=== PATIENT | female | born 1960 | race Caucasian/White ===

== ENCOUNTER 2016-08-05 17:10 | Emergency (ER) | payer MEDICARE, MEDICAID ==
[2016-08-05 17:15] VITALS: BP 175/99
[2016-08-05] MEDS ORDERED: Ibuprofen TAB* 600 MG PO ONE (17:32)
--- NOTE | 2016-08-05 17:36 | UC ---
Hand/Wrist HPI - HPI Summary HPI Summary: a drill fell on her left hand about 1 hour ago pain in left hand near 5th finger - History Of Current Complaint Chief Complaint: UCUpperExtremity Stated Complaint: HAND INJURY Time Seen by Provider: 08/05/16 17:30 Hx Obtained From: Patient ?: No Mechanism Of Injury: drill fell on hand Onset/Duration: Sudden Onset, Lasting Hours - 1.5 hours ago, Still Present Severity Initially: Moderate Severity Currently: Moderate Pain Intensity: 5 Pain Scale Used: 0-10 Numeric Character Of Pain: Aching Alleviating: Nothing Associated Signs And Symptoms: Positive: Negative Related History: Dominant Hand Right - Allergies/Home Medications Allergies/Adverse Reactions: Allergies Allergy/AdvReac Type Severity Reaction Status Date / Time Azithromycin Allergy Intermediate Rash And Verified 08/05/16 17:15 Itching Morphine Allergy Intermediate Difficulty Verified 08/05/16 17:15 Breathing Adhesive Tape Allergy Mild Rash Verified 08/05/16 17:15 Amoxicillin [From Augmentin] Allergy Unknown Rash Verified 08/05/16 17:15 Clavulanic Acid Allergy Unknown Rash Verified 08/05/16 17:15 [From Augmentin] Hydromorphone [From Dilaudid] Allergy Unknown Rash Verified 08/05/16 17:15 Moxifloxacin [From Avelox] Allergy Unknown Rash Verified 08/05/16 17:15 Tapentadol [From Nucynta] Allergy Unknown Rash Verified 08/05/16 17:15 Tolmetin [From Tolectin] Allergy Unknown Rash Verified 08/05/16 17:15 Valdecoxib [From Bextra] AdvReac Unknown Rash Verified 08/05/16 17:15 PERFUMES Allergy Severe DYSPNEA Uncoded 12/08/15 08:37 Home Medications: Home Medications Cholesterol Med* WEEKLY 08/05/16 [History] PMH/Surg Hx/FS Hx/Imm Hx Previously Healthy: No Endocrine History Of: Reports: Diabetes - undiagnosed; under discussion with primary provider Denies: Thyroid Disease Cardiovascular History Of: Reports: Hypertension Denies: Cardiac Disorders, Pacemaker/ICD, Congestive Heart Failure, Deep Vein Thrombosis Respiratory History Of: Reports: Asthma, Bronchitis - CHRONIC, Pneumonia Denies: COPD, Pulmonary Embolism GI/ History Of: Reports: Gastroesophageal Reflux Denies: Ulcer, Kidney Stones, Renal Disease Neurological History Of: Denies: Dementia Psychological History Of: Denies: Anxiety, Depression, Bipolar Disorder, Schizophrenia Cancer History Of: Denies: Lung Cancer Other History Of: Negative For: Anticoagulant Therapy - Surgical History Surgical History: Yes Surgery Procedure, Year, and Place: TUBAL LIGATION 07/12/89, L ear surgery 2013( EAR TUBES & REPAIRED HOLE, NO IMPLANT). TONSIL CHILD - Family History Known Family History: Positive: Cardiac Disease, Hypertension - Social History Occupation: Disabled Lives: With Family Alcohol Use: None Substance Use Type: None Smoking Status (MU): Never Smoked Tobacco Have You Smoked in the Last Year: No - Immunization History Most Recent Influenza Vaccination: 07/12 Most Recent Tetanus Shot: unknown Most Recent Pneumonia Vaccination: within 5 years Review of Systems Constitutional: Negative Skin: Negative Eyes: Negative ENT: Negative Respiratory: Negative Cardiovascular: Negative Gastrointestinal: Negative Genitourinary: Negative Motor: Negative Neurovascular: Negative Musculoskeletal: Arthralgia - left hand 5th MT Neurological: Negative Psychological: Negative All Other Systems Reviewed And Are Negative: Yes Physical Exam Triage Information Reviewed: Yes Appearance: No Pain Distress, Well-Nourished, Ill-Appearing - appears older than stated age Vital Signs: Initial Vital Signs Temp 98.2 F 08/05/16 17:11 Pulse 95 08/05/16 17:11 Resp 16 08/05/16 17:11 BP 175/99 08/05/16 17:11 Vital Signs Reviewed: Yes Eye Exam: Normal Eyes: Positive: Conjunctiva Clear ENT Exam: Normal ENT: Positive: Normal ENT inspection, Hearing grossly normal, TMs normal. Negative: Nasal congestion, Nasal drainage, Trismus, Muffled/hoarse voice Neck exam: Normal Neck: Positive: Supple, Nontender, No Lymphadenopathy Respiratory Exam: Normal Respiratory: Positive: Chest non-tender, Lungs clear, Normal breath sounds, No respiratory distress, No accessory muscle use Cardiovascular Exam: Normal Cardiovascular: Positive: RRR, No Murmur, Pulses Normal, Brisk Capillary Refill Musculoskeletal Exam: Normal Musculoskeletal: Positive: Strength Intact, ROM Intact, No Edema Neurological Exam: Normal Neurological: Positive: Alert, Muscle Tone Normal, Fatigued Psychological Exam: Normal Skin Exam: Normal Diagnostics - Radiology No standard instances Xray Interpretation: Positive (See Comments) Radiology Interpretation Completed By: ED Physician Hand/Wrist Course/Dx - Course Course Of Treatment: quiana, rest, ibuprofen quiana wrap, follow with pcp prn - Differential Dx/Diagnosis Differential Diagnosis/HQI/PQRI: Contusion, Fracture, Sprain, Strain Provider Diagnoses: Left hand Contusion Discharge - Discharge Plan Condition: Stable Disposition: HOME Patient Education Materials: Contusion in Adults (ED), RICE Therapy (ED), Ibuprofen (By mouth) Referrals: Francis PICKARD CHIEF STRATEGY OFFICERNithya [Primary Care Provider] - If Needed
--- NOTE | 2016-08-05 17:59 | RAD ---
HISTORY: Fifth metacarpal pain, left hand COMPARISONS: January 23, 2016 VIEWS: 4, Frontal, lateral, and oblique views of the left hand FINDINGS: BONE DENSITY: Normal. BONES: There is no displaced fracture. JOINTS: There is mild osteoarthritis of the interphalangeal joints. ALIGNMENT: There is no dislocation. SOFT TISSUES: Unremarkable. OTHER FINDINGS: None. IMPRESSION: NO ACUTE OSSEOUS INJURY. IF SYMPTOMS PERSIST, RECOMMEND REPEAT IMAGING.
== END 2016-08-05 18:00 | disposition home or self-care (01) ==
LOC: UCEAST 17:10
DX: S60.222A Contusion of left hand, initial encounter (principal); W20.8XXA Other cause of strike by thrown, projected or falling object, initial encounter; Y93.9 Activity, unspecified; Y92.9 Unspecified place or not applicable; Z88.1 Allergy status to other antibiotic agents; Z88.6 Allergy status to analgesic agent; Z88.0 Allergy status to penicillin
CPT/HCPCS: 99212; A9270-GY; G0463

== ENCOUNTER 2016-08-10 23:18 | Emergency (ER) | payer MEDICARE, MEDICAID ==
[2016-08-10] MEDS ORDERED: methylPREDNISolone 125 MG* 2 ML VIAL IV ONE (23:25)
[2016-08-10 23:40] LABS: Hematocrit 42 % (35-47); Hemoglobin 13.9 g/dl (12.0-16.0); Mean Corpuscular HGB Conc 33 g/dl (31-36); Mean Corpuscular Hemoglobin 29 pg (27-31); Mean Corpuscular Volume 86 fL (80-97); Mean Platelet Volume 10 um3 (7.4-10.4); Red Blood Count 4.83 10^6/ul (4.0-5.4); Red Cell Distribution Width 13 % (10.5-15); White Blood Count 6.4 10^3/ul (3.5-10.8)
[2016-08-11 00:05] LABS: Albumin 4.2 g/dL (3.2-5.2); Calcium 9.4 mg/dL (8.6-10.3); EGFR Non-African American 57.6 (>60); Globulin 2.6 g/dL (2-4); Potassium 3.4 mmol/L (3.5-5.0); Total Bilirubin 0.6 mg/dL (0.2-1.0); Total Protein 6.8 g/dL (6.4-8.9); Troponin I 0.01 ng/mL (<0.04)
--- NOTE | 2016-08-11 00:23 | ED ---
Kwame Davis Karl, scribed for Damaso Cline MD on 08/10/16 at 2323 . Shortness of Breath - HPI Summary HPI Summary: Pt is a 56 y/o female BIBA that presents to the ED c/o SOB. Per EMS, pt was using a home nebulizer treatment when they arrived and was audibly wheezing. Hx : asthma. - History of Current Complaint Chief Complaint: EDShortnessOfBreath Time Seen by Provider: 08/10/16 23:21 Hx Obtained From: Patient, EMS - Allergy/Home Medications Allergies/Adverse Reactions: Allergies Allergy/AdvReac Type Severity Reaction Status Date / Time Azithromycin Allergy Intermediate Rash And Verified 08/05/16 17:15 Itching Morphine Allergy Intermediate Difficulty Verified 08/05/16 17:15 Breathing Adhesive Tape Allergy Mild Rash Verified 08/05/16 17:15 Amoxicillin [From Augmentin] Allergy Unknown Rash Verified 08/05/16 17:15 Clavulanic Acid Allergy Unknown Rash Verified 08/05/16 17:15 [From Augmentin] Hydromorphone [From Dilaudid] Allergy Unknown Rash Verified 08/05/16 17:15 Moxifloxacin [From Avelox] Allergy Unknown Rash Verified 08/05/16 17:15 Tapentadol [From Nucynta] Allergy Unknown Rash Verified 08/05/16 17:15 Tolmetin [From Tolectin] Allergy Unknown Rash Verified 08/05/16 17:15 Valdecoxib [From Bextra] AdvReac Unknown Rash Verified 08/05/16 17:15 PERFUMES Allergy Severe DYSPNEA Uncoded 12/08/15 08:37 Home Medications: Home Medications Albuterol HFA INHALER* [Ventolin HFA Inhaler*] 2 puff INH Q4HR 08/11/16 [ History Confirmed 08/11/16] Buprenorphine 10 MCG PATCH(NF) [Butrans 10 MCG PATCH(NF)] 10 mcg TOPICAL WEEKLY 08/11/16 [History Confirmed 08/11/16] Epinephrine [Epipen 2-Gulshan] 1 inj SUBCUT PRN 08/11/16 [History] Fenofibrate [Triglide] 160 mg PO DAILY 08/11/16 [History Confirmed 08/11/16] Flunisolide NASAL (NF) [Nasalide NASAL (NF)] 2 spray BOTH NARES DAILY 08/11/16 [ History Confirmed 08/11/16] Gabapentin CAP(*) [Neurontin 100 mg CAP(*)] 100 mg PO TID 08/11/16 [History Confirmed 08/11/16] PMH/Surg Hx/FS Hx/Imm Hx Endocrine/Hematology History: Reports: Hx Diabetes - undiagnosed; under discussion with primary provider Denies: Hx Anticoagulant Therapy, Hx Blood Disorders, Hx Blood Transfusions, Hx Bone Marrow Disease, Hx Systemic Lupus Erythematosus, Hx Sickle Cell Disease , Hx Thyroid Disease, Hx Anemia, Hx Unexplained Bleeding Cardiovascular History: Reports: Hx Hypercholesterolemia, Hx Hypotension, Hx Hypertension, Other Cardiovascular Problems/Disorders - pericardial effusion/ IDDM Denies: Hx Aneurysm, Hx Angina, Hx Angioplasty, Hx Auto Implanted Cardiovert Defib, Hx Cardiac Arrest, Hx Cardiomegaly, Hx Congenital Heart Disease, Hx Congestive Heart Failure, Hx Coronary Artery Disease, Hx Deep Vein Thrombosis, Hx Pacemaker/ICD, Hx Peripheral Vascular Disease, Hx Rheumatic Fever, Hx Syncope , Hx Valvular Heart Disease Respiratory History: Reports: Hx Asthma, Hx Chronic Bronchitis, Hx Pneumonia, Hx Seasonal Allergies, Other Respiratory Problems/Disorders - PNA Denies: Hx Chronic Obstructive Pulmonary Disease (COPD), Hx Cystic Fibrosis, Hx Lung Cancer, Hx Pleural Effusion, Hx Pulmonary Edema, Hx Pulmonary Embolism, Hx Sleep Apnea GI History: Reports: Hx Diverticulosis, Hx Gastroesophageal Reflux Disease Denies: Hx Ulcer History: Denies: Hx Acute Renal Failure, Hx Benign Prostatic Hyperplasia, Hx Chronic Renal Failure, Hx Dialysis, Hx Kidney Infection, Hx Kidney Stones, Hx Renal Disease, Other Problems/Disorders Musculoskeletal History: Reports: Hx Arthritis - generalized, Hx Back Problems, Hx Bursitis - r shoulder, Hx Osteoporosis, Hx Scoliosis, Hx Tendonitis Denies: Hx Rheumatoid Arthritis, Hx Congenital Bone Abnormalities, Hx Fibromyalgia, Hx Gout, Hx Orthopedic Injury Sensory History: Reports: Hx Contacts or Glasses, Hx Hearing Problem Denies: Hx Cataracts, Hx Eye Injury, Hx Eye Prosthesis, Hx Glaucoma, Hx Macular Degeneration, Hx Vision Problem, Hx Deafness, Hx Hearing Aid, Other Sensory Impairments Opthamlomology History: Reports: Hx Contacts or Glasses Denies: Hx Cataracts, Hx Eye Injury, Hx Eye Prosthesis, Hx Glaucoma, Hx Macular Degeneration, Hx Vision Problem, Other Sensory Impairments Neurological History: Reports: Hx Headaches - reportedly d/t degenerative disc disease Denies: Hx Dementia Psychiatric History: Denies: Hx Anxiety, Hx Attention Deficit Hyperactivity Disorder, Hx Eating Disorder, Hx Depression, Hx Panic Disorder, Hx Post Traumatic Stress Disorder, Hx Inpatient Treatment, Hx Community Mental Health Tx, Hx Schizophrenia, Hx Bipolar Disorder, Hx Suicide Attempt, Hx Substance Abuse, Other Psychiatric Issues/Disorders - Surgical History Surgery Procedure, Year, and Place: TUBAL LIGATION 07/12/89, L ear surgery 2013( EAR TUBES & REPAIRED HOLE, NO IMPLANT). TONSIL CHILD Hx Anesthesia Reactions: No - Immunization History Date of Tetanus Vaccine: Unk Date of Influenza Vaccine: None Infectious Disease History: Reports: Hx of Known/Suspected MRSA, Hx Shingles - [id number], History Other Infectious Disease - influenza A Denies: Hx Clostridium Difficile, Hx Hepatitis, Hx Human Immunodeficiency Virus (HIV), Hx Tuberculosis - Family History Known Family History: Positive: Cardiac Disease, Hypertension - Social History Alcohol Use: None Substance Use Type: Reports: None Hx Tobacco Use: No Smoking Status (MU): Never Smoked Tobacco Have You Smoked in the Last Year: No Review of Systems Constitutional: Negative Eyes: Negative ENT: Negative Cardiovascular: Negative Positive: Shortness Of Breath Gastrointestinal: Negative Genitourinary: Negative Musculoskeletal: Negative Skin: Negative Neurological: Negative Psychological: Normal All Other Systems Reviewed And Are Negative: Yes Physical Exam Triage Information Reviewed: Yes Vital Signs On Initial Exam: Initial Vitals Temp Pulse Resp BP Pulse Ox 98.0 F 127 25 163/115 100 08/10/16 23:38 08/10/16 23:38 08/10/16 23:38 08/10/16 23:38 08/10/16 23:38 Vital Signs Reviewed: Yes Appearance: Positive: Well-Appearing, No Pain Distress Skin: Positive: Warm Head/Face: Positive: Normal Head/Face Inspection Eyes: Positive: ALLIE ENT: Positive: Hearing grossly normal Neck: Positive: Supple Respiratory/Lung Sounds: Positive: Decreased Breath Sounds, Wheezes - diffuse bilat with prolonged expiration Cardiovascular: Positive: Normal Abdomen Description: Positive: Nontender, Soft Bowel Sounds: Positive: Present Musculoskeletal: Positive: Strength/ROM Intact Neurological: Positive: Sensory/Motor Intact, Alert, Oriented to Person Place, Time Psychiatric: Positive: Affect/Mood Appropriate Diagnostics - Vital Signs Vital Signs Temp Pulse Resp BP Pulse Ox 08/11/16 00:02 112 22 143/80 95 08/10/16 23:38 98.0 F 127 25 163/115 100 - Laboratory Lab Results: Lab Results 08/10/16 08/10/16 08/10/16 Range/Units 23:30 23:30 23:30 WBC 6.4 (3.5-10.8) 10^3/ul RBC 4.83 (4.0-5.4) 10^6/ul Hgb 13.9 (12.0-16.0) g/dl Hct 42 (35-47) % MCV 86 (80-97) fL MCH 29 (27-31) pg MCHC 33 (31-36) g/dl RDW 13 (10.5-15) % Plt Count 169 (150-450) 10^3/ul MPV 10 (7.4-10.4) um3 Neut % (Auto) 60.0 (38-83) % Lymph % (Auto) 27.7 (25-47) % Calhoun % (Auto) 9.4 H (1-9) % Eos % (Auto) 2.2 (0-6) % Baso % (Auto) 0.7 (0-2) % Absolute Neuts (auto) 3.8 (1.5-7.7) 10^3/ul Absolute Lymphs (auto) 1.8 (1.0-4.8) 10^3/ul Absolute Monos (auto) 0.6 (0-0.8) 10^3/ul Absolute Eos (auto) 0.1 (0-0.6) 10^3/ul Absolute Basos (auto) 0 (0-0.2) 10^3/ul Absolute Nucleated RBC 0.01 10^3/ul Nucleated RBC % 0.1 Sodium 141 (133-145) mmol/L Potassium 3.4 L (3.5-5.0) mmol/L Chloride 107 (101-111) mmol/L Carbon Dioxide 26 (22-32) mmol/L Anion Gap 8 (2-11) mmol/L BUN 10 (6-24) mg/dL Creatinine 1.00 H (0.51-0.95) mg/dL Est GFR ( Amer) 74.0 (>60) Est GFR (Non-Af Amer) 57.6 (>60) BUN/Creatinine Ratio 10.0 (8-20) Glucose 126 H (70-100) mg/dL Lactic Acid 2.6 H* (0.5-2.0) mmol/L Calcium 9.4 (8.6-10.3) mg/dL Total Bilirubin 0.60 (0.2-1.0) mg/dL AST 21 (13-39) U/L ALT 19 (7-52) U/L Alkaline Phosphatase 60 (34-104) U/L Troponin I 0.01 (<0.04) ng/mL Total Protein 6.8 (6.4-8.9) g/dL Albumin 4.2 (3.2-5.2) g/dL Globulin 2.6 (2-4) g/dL Albumin/Globulin Ratio 1.6 (1-3) Influenza A (Rapid) (Negative) Influenza B (Rapid) (Negative) 08/10/16 Range/Units 23:55 WBC (3.5-10.8) 10^3/ul RBC (4.0-5.4) 10^6/ul Hgb (12.0-16.0) g/dl Hct (35-47) % MCV (80-97) fL MCH (27-31) pg MCHC (31-36) g/dl RDW (10.5-15) % Plt Count (150-450) 10^3/ul MPV (7.4-10.4) um3 Neut % (Auto) (38-83) % Lymph % (Auto) (25-47) % Calhoun % (Auto) (1-9) % Eos % (Auto) (0-6) % Baso % (Auto) (0-2) % Absolute Neuts (auto) (1.5-7.7) 10^3/ul Absolute Lymphs (auto) (1.0-4.8) 10^3/ul Absolute Monos (auto) (0-0.8) 10^3/ul Absolute Eos (auto) (0-0.6) 10^3/ul Absolute Basos (auto) (0-0.2) 10^3/ul Absolute Nucleated RBC 10^3/ul Nucleated RBC % Sodium (133-145) mmol/L Potassium (3.5-5.0) mmol/L Chloride (101-111) mmol/L Carbon Dioxide (22-32) mmol/L Anion Gap (2-11) mmol/L BUN (6-24) mg/dL Creatinine (0.51-0.95) mg/dL Est GFR ( Amer) (>60) Est GFR (Non-Af Amer) (>60) BUN/Creatinine Ratio (8-20) Glucose (70-100) mg/dL Lactic Acid (0.5-2.0) mmol/L Calcium (8.6-10.3) mg/dL Total Bilirubin (0.2-1.0) mg/dL AST (13-39) U/L ALT (7-52) U/L Alkaline Phosphatase (34-104) U/L Troponin I (<0.04) ng/mL Total Protein (6.4-8.9) g/dL Albumin (3.2-5.2) g/dL Globulin (2-4) g/dL Albumin/Globulin Ratio (1-3) Influenza A (Rapid) Negative (Negative) Influenza B (Rapid) Negative (Negative) Result Diagrams: 08/10/16 23:30 08/10/16 23:30 Lab Statement: Any lab studies that have been ordered have been reviewed, and results considered in the medical decision making process. - Radiology CXR Xray Interpretation: No Acute Changes Radiology Interpretation Completed By: ED Physician - IMPRESSION: No active cardiopulmonary pathology. Re-Evaluation - Re-Evaluation First Eval Change: Improved Course/Dx - Diagnoses Provider Diagnoses: Asthma exacerbation Discharge - Discharge Plan Condition: Stable Disposition: HOME Prescriptions: predniSONE TAB* [Deltasone TAB*] 40 mg PO DAILY #8 tab Patient Education Materials: Asthma (ED) Referrals: Francis TARANGOPNithya [Primary Care Provider] - Additional Instructions: Please follow up with your primary care provider. Return to the emergency department for changing or worsening symptoms. The documentation as recorded by the Kwame pettit Karl accurately reflects the service I personally performed and the decisions made by , Damaso Cline MD.
[2016-08-11 01:22] VITALS: BP 132/74
--- NOTE | 2016-08-11 06:51 | RAD ---
INDICATION: Short of breath COMPARISON: April 09, 2016 TECHNIQUE: PA and lateral dual-energy views were obtained. FINDINGS: Bones/Soft Tissues: There are no acute bony findings. Cardiomediastinal: The cardiomediastinal silhouette is normal. Lungs: There is bibasilar atelectasis the mid and upper lung cronin are clear. Pleura: There are no pleural effusions. Other: None IMPRESSION: EXPIRATORY EXAMINATION BASILAR WITH ATELECTASIS.
== END 2016-08-11 01:20 | disposition home or self-care (01) ==
LOC: ED 23:18
DX: J45.901 Unspecified asthma with (acute) exacerbation (principal); R06.02 Shortness of breath
CPT/HCPCS: 36415; 71020; 80053; 83605; 84484; 85025; 87502; 96374; 99283; J2930

== ENCOUNTER 2017-04-02 13:41 | Emergency (ER) | payer MEDICARE, MEDICAID ==
[2017-04-02 13:56] VITALS: BP 161/88
--- NOTE | 2017-04-02 14:25 | UC ---
Upper Extremity HPI - HPI Summary HPI Summary: 56 y/o female with pain L wrist since 03/29. The patient denies injury or trauma. She states she has nto had pain there in the past. She notes swelling / lesion there which is tender to the touch. full movement of finger and full strength, however thumb pain with certain movements. - History of Current Complaint Chief Complaint: UCUpperExtremity Stated Complaint: ARM INJURY Time Seen by Provider: 04/02/17 13:57 Hx Obtained From: Patient ?: No Onset/Duration: Sudden Onset, Lasting Days Severity Initially: Moderate Severity Currently: Moderate Location Of Pain: Is Discrete @ - L wrist Character: Sharp Aggravating Factor(s): Movement Alleviating Factor(s): Rest Associated Signs And Symptoms: Positive: Swelling - Allergies/Home Medications Allergies/Adverse Reactions: Allergies Allergy/AdvReac Type Severity Reaction Status Date / Time Azithromycin Allergy Intermediate Rash And Verified 04/02/17 13:58 Itching Morphine Allergy Intermediate Difficulty Verified 04/02/17 13:58 Breathing Adhesive Tape Allergy Mild Rash Verified 04/02/17 13:58 Amoxicillin [From Augmentin] Allergy Unknown Rash Verified 04/02/17 13:58 Clavulanic Acid Allergy Unknown Rash Verified 04/02/17 13:58 [From Augmentin] Hydromorphone [From Dilaudid] Allergy Unknown Rash Verified 04/02/17 13:58 Moxifloxacin [From Avelox] Allergy Unknown Rash Verified 04/02/17 13:58 Tapentadol [From Nucynta] Allergy Unknown Rash Verified 04/02/17 13:58 Tolmetin [From Tolectin] Allergy Unknown Rash Verified 04/02/17 13:58 Valdecoxib [From Bextra] AdvReac Unknown Rash Verified 04/02/17 13:58 PERFUMES Allergy Severe DYSPNEA Uncoded 04/02/17 13:58 PMH/Surg Hx/FS Hx/Imm Hx Previously Healthy: Yes Other History Of: Negative For: Anticoagulant Therapy - Surgical History Surgical History: Yes Surgery Procedure, Year, and Place: TUBAL LIGATION in 1988. hole in ear closed (no implant). tonsils as a child - Family History Known Family History: Positive: Cardiac Disease, Hypertension, Diabetes - Social History Alcohol Use: None Substance Use Type: Prescribed Smoking Status (MU): Never Smoked Tobacco Have You Smoked in the Last Year: No - Immunization History Most Recent Influenza Vaccination: 2016 Most Recent Tetanus Shot: unknown Most Recent Pneumonia Vaccination: within 5 years Review of Systems Motor: Decreased ROM - due to pain Musculoskeletal: Arthralgia, Edema Is Patient Immunocompromised?: No All Other Systems Reviewed And Are Negative: Yes Physical Exam Triage Information Reviewed: Yes Appearance: Well-Appearing, No Pain Distress, Well-Nourished Vital Signs: Initial Vital Signs Temp 98.9 F 04/02/17 13:49 Pulse 83 04/02/17 13:49 Resp 16 04/02/17 13:49 BP 161/88 04/02/17 13:49 Pulse Ox 98 04/02/17 13:49 Vital Signs Reviewed: Yes Musculoskeletal: Positive: Strength Intact, ROM Intact, No Edema, Other: - small , mobile lesion on anterior radial wrist, tender to touch, produces radiating pain into thumb, 1st finger with touch, mobile, full ROM or wrist/ thumb, fingers. Neurological: Positive: Alert, Muscle Tone Normal Skin Exam: Normal Upper Extremity Course/Dx - Course Course Of Treatment: likely ganglion cysts, wrist splint given with ortho follow up if no improvmeent - Differential Dx/Diagnosis Provider Diagnoses: ganglion cyst, L wrist Discharge - Discharge Plan Condition: Stable Disposition: HOME Patient Education Materials: Ganglion Cysts (ED) Referrals: Nithya Ruggiero RN [Primary Care Provider] - Андрей Hadley MD [Medical Doctor] - Additional Instructions: - If no improvement within 3-4 days or worsening of symptoms call Ortho- May be seen by Leonie Baum Donohue, [place] - - Wear splint to keep wrist stable, reduce symptoms - Motrin as needed for pain - return to urgent care with increased pain, redness, swelling, fever, chills.
== END 2017-04-02 14:22 | disposition home or self-care (01) ==
LOC: UCEAST 13:41
DX: M67.432 Ganglion, left wrist (principal); Z88.1 Allergy status to other antibiotic agents; Z88.5 Allergy status to narcotic agent; Z91.048 Other nonmedicinal substance allergy status
CPT/HCPCS: 99212; G0463

== ENCOUNTER 2017-05-23 08:25 | Day surgery (SDC) | payer MEDICARE, MEDICAID ==
[~2017-05-23 08:25] MED LIST: Buffered Lidocaine 0.9% SYRIN* 5 ML/SYR SYRINGE INTRADERM ONE; Bupivacaine 0.25% SDV* 30 ML ONE; Famotidine IV* 10 MG/ML 2 ML (20 mg) IV ONE; Famotidine IV* 10 MG/ML 2 ML (20 mg) ONE; Metoclopramide TAB* 10 MG ONE
[2017-05-23] MEDS ORDERED: ceFAZolin 2 GM PREMIX (*) 2 GM/50 ML BAG IVPB ONE (08:32)
[2017-05-23] MEDS ORDERED: Ketorolac INJ* 30 MG/ML 1 ML VIAL ONE (08:55)
[2017-05-23] MEDS ORDERED: Ondansetron INJ* 2 MG/ML VIAL ONE (08:55)
[2017-05-23] MEDS ORDERED: Propofol* 10 MG/ML 20 ML BTL IV PUSH ONE (08:55)
[2017-05-23] MEDS ORDERED: Midazolam* 1 MG/ML 5 ML VIAL (5 MG) ONE (08:55)
[2017-05-23] MEDS ORDERED: fentaNYL* 50 MCG/ML 2 ML VIAL (100 MCG VIAL) ONE ×2 (08:55→10:32)
[2017-05-23] MEDS ORDERED: KETAMINE HCL* 50 MG/ML 10 ML VIAL ONE (08:55)
[2017-05-23] MEDS ORDERED: Lidocaine 2% PF * 5 ML VIAL ONE (08:55)
[2017-05-23] MEDS: Metoclopramide TAB* 10 MG PO ONE ×2 (08:55→09:03)
[2017-05-23] MEDS ORDERED: Dexamethasone IV* 4 MG/ML 1 ML (4 MG) ONE (08:55)
[2017-05-23] MEDS ORDERED: oxyCODONE/Acetamin 5/325 MG* TAB PO PRN (09:49)
[2017-05-23] MEDS ORDERED: Ondansetron INJ* 2 MG/ML VIAL IV PRN (09:49)
[2017-05-23] MEDS ORDERED: fentaNYL* 50 MCG/ML 2 ML VIAL (100 MCG VIAL) IV PRN (09:49)
[2017-05-23 12:15] VITALS: BP 112/72
--- NOTE | 2017-05-24 02:09 | OP ---
OPERATIVE REPORT: DATE OF OPERATION: 05/23/17 - ROSITA DATE OF : 62 SURGEON: Андрей Hadley MD BLENDER / COOK: SHANICE Alfaro An assistant professor of spanish was needed for the entirety of the procedure to aid in positioning of the arm and retraction. ANESTHESIOLOGIST: Dr. Patiño. ANESTHESIA: General PRE-OP DIAGNOSIS: Right ulnar nerve peripheral compression. POST-OP DIAGNOSIS: Right ulnar nerve peripheral compression. OPERATIVE PROCEDURES: 1. Right ulnar nerve decompression at the wrist. 2. Right in situ cubital tunnel release. INDICATIONS: Tess has had progressive symptoms in the ring and small fingers , has failed to go away with nonoperative treatments and time. She has seen her precision filer hand and gotten clearance. We talked about risks and benefits. She wanted to proceed. EBL: 5 mL. COMPLICATIONS: None. FINDINGS: There was a significant 1 to 1.5 cm of area of compression just at the distal edge of Gaviria's ligament and the leading edge of the FCU fascia. DESCRIPTION OF PROCEDURE: Tess was seen in the preoperative holding area. The correct side, site, and procedure were identified. We came back to the operating room, the arm was prepped and draped in the usual fashion. A time- out was performed. We exsanguinated the arm with the Esmarch and the tourniquet was inflated to 250 mmHg. I began by making a longitudinal incision in the proximal aspect of the palm. This was brought back across the wrist in Tyrone type fashion, staying ulnar to the palmaris longus tendon. Dissection was carried down and full thickness flaps were raised slightly off of the fascia. I then opened up the fascia proximally to expose the ulnar artery. I then released the fascia overlying Guyon's canal. The ulnar artery was visualized. The ulnar nerve was encountered deep to that. There was a couple of perforating branches that were cauterized with the bipolar. I then had an excellent view of the ulnar nerve. The sensory branches were decompressed out distally. I then identified the motor branch and released the hypothenar fascia off the hook of the hamate to decompress the motor branch deeply. The wound was then irrigated out. I did go ahead and released the transverse carpal ligament just off the radial aspect of the hook of the hamate to aid in ensuring an adequate and complete decompression. The wound was then irrigated out. The skin was closed with 4-0 nylon suture. I then turned my attention to the elbow. A curvilinear incision was made centered over Gaviria's ligament, extending proximally and distally in line with the ulnar nerve. Dissection was carried down to the fascia with the Bovie proximally and with the tenotomy scissors distally. I began the release just at the proximal aspect of the Gaviria's ligament. This was carried up well past 8 cm proximal to the medial epicondyle. I then came back distally and released the Gaviria's ligament and then the superficial FCU fascia. I then split the 2 heads of the FCU and released the subfacial layer. The nerve was quite flat and compressed over a 1.5 cm segment just to the distal aspect of Gaviria's ligament and the leading edge of the FCU fascia. I went ahead and performed just a slight neurolysis as the nerve was quite adherent to the underlying tissue. At this point, I flexed and extended the elbow multiple times, it did not subluxate, so I went ahead and irrigated out the wound. Hemostasis was obtained with the Bovie cautery. Subcutaneous tissue was reapproximated with 3-0 Vicryl. Skin was closed with 4-0 nylon suture. All the wounds were irrigated with 0.25% plain Marcaine. The wounds were dressed with Xeroform, 4x4, sterile Webril, an ABD at the elbow, and Issac bandages. She was then woken up and taken to the recovery room in stable condition. [id number]/[facility] #: [id number] MARISSA
== END 2017-05-23 12:15 | disposition home or self-care (01) ==
LOC: OREAST 08:25
PROVIDERS: ATTEND Orthopaedic Surgery Hand Surgery
DX: G56.21 Lesion of ulnar nerve, right upper limb (principal); I10 Essential (primary) hypertension; J45.909 Unspecified asthma, uncomplicated; J44.9 Chronic obstructive pulmonary disease, unspecified; K21.9 Gastro-esophageal reflux disease without esophagitis; E11.9 Type 2 diabetes mellitus without complications; E78.5 Hyperlipidemia, unspecified; Z88.1 Allergy status to other antibiotic agents; Z88.5 Allergy status to narcotic agent
CPT/HCPCS: A9270-GY; J0690; J1100; J1885; J2250; J2405; J2704; J3010

== ENCOUNTER 2017-07-29 13:08 | Emergency (ER) | payer MEDICARE, MEDICAID ==
--- OUTSIDE RECORDS SUMMARY | 2017-07-29 13:25 | XMS REPORT ---
:1960 External Reference #:[id number] Author Organization [facility] Address [address] [address] Phone [phone] Care Team Providers Name Role Phone Nithya Blanco FNP Primary Care Physician Unavailable Payers Type Date Identification Numbers Payment Provider Subscriber Medicare Primary Effective: Policy Number: Medicare Tess Clark 2011 [id number] PayID: [id number] [address] [place] [address] [facility] Part [facility] Policy Number: [id number] Medicaid Tess Clark PayID: [id number] [address] [place] [address] Problems Date Description Provider Status Onset: 01/15/2017 Asthma without status asthmaticus Temi Najera MD Active Onset: 01/15/2017 Allergic rhinitis Temi Najera MD Active Onset: 01/15/2017 Gastroesophageal reflux disease Temi Najera MD Active Onset: 01/15/2017 Other sleep disorders Temi Najera MD Active Family History Date Family Member(s) Problem(s) Comments General Cancer General Diabetes General Hypertension Father Unknown Mother Seizure Disorder Mother Cerebrovascular Accident (CVA) Mother Diabetes Social History Type Date Description Comments Marital Status Lives With granddaughter Occupation Disabled Cigarette Use Never Smoked Cigarettes ETOH Use Denies alcohol use Smoking Patient has never smoked Recreational Drug Use Denies Drug Use Daily Caffeine Consumes on average 4 cups of regular coffee per day Exercise Type/Frequency Does not exercise Allergies, Adverse Reactions, Alerts Date Description Reaction Status Severity Comments 05/06/2014 Augmentin active 05/06/2014 Avelox active 05/06/2014 Dilaudid active 05/06/2014 Morphine active 05/06/2014 Nucynta active Medications Medication Date Status Form Strength Qnty SIG Indications Ordering Provider Tramadol 05/23/ Active Tablets 37.5-325mg 30tab 1-2 tab by Андрей Patino/ 2016 s mouth MD Leonie Acetaminophen every 4-6 hours as needed Tramadol HCL 05/23/ Active Tablets 50mg 30tab 1-2 tabs Marcia 2016 s by mouth Baum, every 4-6 M.D. hours as needed for pain Albuterol / Active Nebulizer (2.5mg/3ML 100un 1 vial via Unknown Sulfate 0000 ) 0.083% its nebulizer 4 times daily as needed Calcium 500+D / Active daily Unknown 0000 Epipen 2-Gulshan / Active Solution 0.3mg/0.3M 1unit use as Unknown 0000 Auto-Inject L s directed Ipratropium / Active Solution 0.5-2.5(3) 60uni 1 vial in Unknown [place] 0000 mg/3ML ts nebulizer rol Sulfate three times a day as needed for asthma Lisinopril / Active Tablets 5mg 30tab 1 by mouth Unknown 0000 s every day Lovastatin / Active Tablets 20mg 90tab by mouth Unknown 0000 s every night at bedtime Montelukast / Active Tablets 10mg 1 by mouth Unknown Sodium 0000 every day Ventolin HFA / Active Aerosol 108(90Base 1unit 2 puffs by Unknown 0000 ) mcg/Act s mouth four times a day as needed Advair Diskus / Active Aerosol 500-50mcg/ inhale 1 Unknown 0000 Dose dose by mouth twice a day Ranitidine 150 / Active Tablets 150mg one by Unknown Maximum 0000 mouth Strength twice a day Furosemide / Active Tablets 20mg take 1 Unknown 0000 tablet by mouth every morning if needed for edema Escitalopram / Active Tablets 10mg take 1 Unknown Oxalate 0000 tablet by mouth once daily Vitamin D3 / Active Capsules [id number] Unknown 0000 Pantoprazole / Active Tablets DR 40mg take 1 Unknown Sodium 0000 tablet by mouth once daily Ranitidine HCL 01/15/ Hx Tablets 150mg 30tab take one K21.9 Temi 2016 s tablet by MD Reinaldo 02/06/ mouth at 2017 bedtime Advair Diskus /00/ Hx Unknown 0000 - 2016 Butrans 0000/ Hx Patches 10mcg/HR 4unit topical Unknown 0000 - Weekly s q72015 Celebrex /00/ Hx Capsules 200mg 30cap 1 by mouth Unknown 0000 - s every day 2016 Gabapentin / Hx Capsules 100mg 90cap 1 po qhs Unknown 0000 - s to start and november 2015 increase as tolerated to 2 po qhs then 1 po qam and 2 po hs, gradually up to 3 tid prn pain Gemfibrozil / Hx Tablets 600mg 60tab 1 by mouth Unknown 0000 - s twice a 2015 Loratadine / Hx Tablets 10mg 30tab 1 by mouth Unknown 0000 - s every day 2016 Metformin HCL / Hx Tablets 500mg 1 by mouth Unknown 0000 - twice a 2016 Medications Administered in Office Medication Date Status Form Strength Qnty SIG Indications Ordering Provider Depomedrol Administered Injection Marcelo 80MG 014 Morgan Gamboa Immunizations CPT Code Status Date Vaccine Lot # [id number] Given 05/07/2016 Influenza Virus 3Yrs & Over Vital Signs Date Vital Result Comment 07/18/2017 Height 61 inches 5'1" Weight 153.00 lb BP Systolic 140 mmHg BP Diastolic 82 mmHg Respiratory Rate 16 /min Body Temperature 95.4 F Pain Level 7 BMI (Body Mass Index) 28.9 kg/m2 07/03/2017 Height 61 inches 5'1" Weight 153.00 lb Heart Rate 76 /min Respiratory Rate 16 /min Body Temperature 98.6 F Pain Level 8 BMI (Body Mass Index) 28.9 kg/m2 06/05/2017 Height 61 inches 5'1" Weight 153.00 lb Heart Rate 68 /min BP Systolic 130 mmHg BP Diastolic 82 mmHg Body Temperature 98.5 F Pain Level 7 BMI (Body Mass Index) 28.9 kg/m2 05/08/2017 Height 61 inches 5'1" Weight 153.00 lb Heart Rate 76 /min BP Systolic 128 mmHg BP Diastolic 76 mmHg Respiratory Rate 18 /min Pain Level 9 BMI (Body Mass Index) 28.9 kg/m2 04/18/2017 Heart Rate 64 /min BP Systolic Sitting 138 mmHg BP Diastolic Sitting 100 mmHg Body Temperature 98.1 F Pain Level 8 04/09/2017 Height 61 inches 5'1" Weight 146.00 lb w/ shoes Heart Rate 78 /min reg BP Systolic Sitting 116 mmHg Rue, lg cuff BP Diastolic Sitting 82 mmHg Rue, lg cuff Respiratory Rate 16 /min O2 % BldC Oximetry 95 % on Ra BMI (Body Mass Index) 27.6 kg/m2 02/15/2017 Height 61 inches 5'1" Weight 147.00 lb Body Temperature 98.8 F Pain Level 7 BMI (Body Mass Index) 27.8 kg/m2 02/15/2017 Height 61 inches 5'1" Weight 147.00 lb Body Temperature 98.8 F Pain Level 7 BMI (Body Mass Index) 27.8 kg/m2 02/15/2017 Height 61 inches 5'1" Weight 147.00 lb Body Temperature 98.8 F Pain Level 7 BMI (Body Mass Index) 27.8 kg/m2 02/01/2017 Height 61.5 inches 5'1.50" Weight 153.00 lb Heart Rate 75 /min Respiratory Rate 16 /min Pain Level 7 BMI (Body Mass Index) 28.4 kg/m2 01/18/2017 Height 61.5 inches 5'1.50" Weight 153.00 lb Heart Rate 66 /min BP Systolic Sitting 142 mmHg BP Diastolic Sitting 82 mmHg Respiratory Rate 16 /min Body Temperature 96.0 F Pain Level 8 BMI (Body Mass Index) 28.4 kg/m2 01/15/2017 Height 61 inches 5'1" Weight 153.00 lb Heart Rate 68 /min BP Systolic Sitting 136 mmHg BP Diastolic Sitting 92 mmHg Respiratory Rate 16 /min O2 % BldC Oximetry 97 % room air BMI (Body Mass Index) 28.9 kg/m2 Neck Circumference in inches 13.5 12/07/2016 Height 61 inches 5'1" Weight 147.00 lb Heart Rate 95 /min BP Systolic 142 mmHg BP Diastolic 91 mmHg Body Temperature 97.2 F Pain Level 7 BMI (Body Mass Index) 27.8 kg/m2 11/22/2016 Height 61 inches 5'1" Weight 147.00 lb BP Systolic 122 mmHg BP Diastolic 80 mmHg Respiratory Rate 16 /min Pain Level 7 BMI (Body Mass Index) 27.8 kg/m2 04/16/2016 Height 61 inches 5'1" Weight 150.00 lb Pain Level 0 BMI (Body Mass Index) 28.3 kg/m2 03/05/2016 Height 61 inches 5'1" Weight 150.00 lb Heart Rate 64 /min Respiratory Rate 6 /min Pain Level 7 BMI (Body Mass Index) 28.3 kg/m2 01/19/2016 Height 61 inches 5'1" Weight 150.00 lb BP Systolic 143 mmHg BP Diastolic 88 mmHg Pain Level 7 BMI (Body Mass Index) 28.3 kg/m2 05/06/2014 Height 61 inches 5'1" Weight 150.00 lb Heart Rate 75 /min BP Systolic 159 mmHg BP Diastolic 95 mmHg Pain Level 8 BMI (Body Mass Index) 28.3 kg/m2 Results Test Date Test Result H/L Range Note Laboratory test finding 05/23/2017 Point of Care 109 mg/dL High 70-100 1 Glucose Laboratory test finding 05/23/2017 Point of Care 111 mg/dL High 70-100 2 Glucose CBC Auto Diff 03/17/2014 White Blood Count 8.2 10^3/uL 4.8-10.8 Red Blood Count 5.12 10^6/uL 4.0-5.4 Hemoglobin 15.2 g/dL 12.0-16.0 Hematocrit 45 % 35-47 Mean Corpuscular Volume 87 fL 80-97 Mean Corpuscular Hemoglobin 30 pg 27-31 Mean Corpuscular HGB Conc 34 g/dL 31-36 Red Cell Distribution Width 13 % 10.5-15 Platelet Count 230 10^3/uL 150-450 Mean Platelet Volume 11 um3 High 7.4-10.4 Abs Neutrophils 4.6 10^3/uL 1.5-7.7 Abs Lymphocytes 2.9 10^3/uL 1.0-4.8 Abs Monocytes 0.4 10^3/uL 0-0.8 Abs Eosinophils 0.2 10^3/uL 0-0.6 Abs Basophils 0.1 10^3/uL 0-0.2 Abs Nucleated RBC 0.01 10^3/uL Granulocyte % 56.4 % 38-83 Lymphocyte % 35.7 % 25-47 Monocyte % 4.9 % 1-9 Eosinophil % 1.9 % 0-6 Basophil % 1.1 % 0-2 Nucleated Red Blood Cells % 0.1 Comp Metabolic Panel 03/17/2014 Sodium 139 mmol/L 133-145 Potassium 3.8 mmol/L 3.7-5.6 Chloride 106 mmol/L 101-111 Co2 Carbon Dioxide 25 mmol/L 22-32 Anion Gap 8 mmol/L 2-11 Glucose 193 mg/dL High 70-100 Blood Urea Nitrogen 17 mg/dL 6-24 Creatinine 0.97 mg/dL High 0.51-0.95 BUN/Creatinine Ratio 17.5 8-20 Calcium 9.0 mg/dL 8.6-10.3 3 Total Protein 6.8 g/dL 6.4-8.9 Albumin 4.3 g/dL 3.2-5.2 Globulin 2.5 g/dL 2-4 Albumin/Globulin Ratio 1.7 1-3 Total Bilirubin 0.50 mg/dL 0.2-1.0 Alkaline Phosphatase 88 U/L 34-104 Alt 13 U/L 7-52 Ast 16 U/L 13-39 Egfr Non- 60.3 >60 Egfr 77.6 >60 4 1 Geophysical Manager: [id number] Geophysical Manager: [id number] 3 Specimen Lipemic. Result may not be valid. 4 Because ethnic data is not always readily available, this report includes an eGFR for both -Americans and non- Americans. The National Kidney Disease Education Program (NKDEP) does not endorse the use of the MDRD equation for patients that are not between the ages of 18 and 70, are , have extremes of body size, muscle mass, or nutritional status, or are non- or non-. According to the National Kidney Foundation, irrespective of diagnosis, the stage of the disease is based on the level of kidney function: Stage Description GFR(mL/min/1.73 m(2)) 1 Kidney damage with normal or decreased GFR 90 2 Kidney damage with mild decrease in GFR 60-89 3 Moderate decrease in GFR 30-59 4 Severe decrease in GFR 15-29 5 Kidney failure <15 (or dialysis) Procedures Date CPT Code Description Status 05/23/2017 92675 Neuroplasty/Transposition, Ulnar Nerve At Wrist Completed 05/23/2017 47277 Neuroplasty &/Or Transposition; Ulnar Nerve At Completed Elbow 05/23/2017 82881 Neuroplasty &/Or Transposition; Ulnar Nerve At Completed Elbow 03/08/2017 31980 Polysomnography Sleep Staging 4+ Parameters Completed 01/22/2017 38926 Diffusing Capacity Completed 01/22/2017 57222 Plethysmography Determination Lung Volumes & Per Completed Airway Resist 01/22/2017 41377 Pulmonary Function><Bronchodil Completed 05/06/2014 06299 Inject/Drain Joint/Bursa Major Completed 04/02/2013 33228 Nerve Conduction 09-10 Studies Completed 04/02/2013 71780 Needle Electromyography Complete, Five Or More Muscles Completed Studied 07/15/2012 92316 Color Flow Doppler/Interp & Reprt Completed 07/15/2012 13179 Pulse Wave/Continuous-Interp.RPT Completed 07/15/2012 51271 ECHO Transthorasic Realtime 2D W Doppler & Color Completed Flow Hosp 05/02/2012 30540 EKG, Interpretation Only Completed Encounters Type Date Location Provider CPT E/M Dx Office Visit 04/18/2017 [facility] 09939 G57.81 9:30a Ck Mora Office Visit 04/09/2017 [facility] [address] J45.909 2:30p Services Of Sukhwinder Office Visit 02/15/2017 [facility] 41117 G57.81 2:15p Ck [facility] Office Visit 02/01/2017 [facility] [place] [address] G56.21 1:30p C.MCristianACristian Office Visit 01/18/2017 [facility] [place] [address] G56.21 8:00a C.M.ACristian Office Visit 01/15/2017 [facility] [address] J45.901 10:15a Services Of [facility] J30.9 K21.9 R06.83 R51 G47.8 R40.0 J98.11 Office Visit 12/07/2016 2:45p [facility] 64107 G57.81 Of Ck Mora Office Visit 11/22/2016 9:00a [facility] 38055 G57.81 Of Ck Mora Office Visit 04/16/2016 11:20a [facility] Clover Webber, 29838 S63.631D Of Ck SIERRA S63.633D Office Visit 03/05/2016 9:50a [facility] Marcia Baum, 40755 S63.631D Of Ck Mor[facility] Office Visit 01/19/2016 2:40p [facility] Marcia Baum, 94438 S63.631A Of Ck Mora S63.633A Office Visit 10/24/2015 2:49p [facility],pc Sunil Mccormack, 47745 J45.52 Hospitalists MIsela J10.1 I10 E11.9 Office Visit 10/23/2015 2:38p [facility] [place], [address] J45.52 Assoc, Hospitalists Morgan J10.1 I10 E11.9 Office Visit 11/03/2014 9:35a [facility],pc Sunil Mccormack, 88567 518.81 Hospitalists M.DCristian 493.92 490 038.9 Office Visit 11/02/2014 9:34a [facility],pc Sunil Mccormack, 84903 518.81 Hospitalists M.DCristian 493.92 490 038.9 Office Visit 11/01/2014 9:34a [facility],pc Sunil Mccormack, 23914 518.81 Hospitalists M.DCristian 493.92 490 038.9 Office Visit 10/31/2014 9:34a [facility],pc Azucena Armendariz, 84291 518.81 Hospitalists M.DCristian 493.92 490 038.9 Office Visit 08/18/2014 8:30a [facility],pc Sahara Nixon, N.PCristian 54020 482.9 Hospitalists 038.9 401.9 272.4 Office Visit 08/17/2014 8:30a [facility] [address] 482.9 Hospitalists 038.9 401.9 272.4 Office Visit 08/16/2014 8:29[place] [address] 482.9 Assoc, Hospitalists M.Valeriy. 038.9 401.9 272.4 Office Visit 05/06/2014 8:45a [facility] Marcelo Gamboa M.D. 83883 726.10 C.M.A. Office Visit 08/19/2012 1:15p [facility], Андрей Lucero, 67806 995.91 Hospitalists N.P. 493.02 481 250.00 Office Visit 08/18/2012 1:14p [facility], Андрей Lucero, 88017 995.91 Hospitalists N.P. 493.02 481 250.00 Office Visit 08/17/2012 1:14p [facility], Tracie Mills N.P. 28441 995.91 Hospitalists 493.02 481 250.00 Office Visit 08/16/2012 1:13p [facility]oc, Tracie Mills N.P. 54325 995.91 Hospitalists 493.02 481 250.00 Office Visit 07/17/2012 6:48p [facility], Sunil Mccormack, 83691 518.81 Hospitalists Morgan 493.02 466.0 250.90 Office Visit 07/16/2012 6:48p [facility], Azucena Armendariz, 93050 518.81 Hospitalists Morgan 493.02 466.0 Office Visit 07/15/2012 6:47p [facility] Azucena Armendariz, 79797 518.81 Hospitalists Morgan 493.02 466.0 Office Visit 07/14/2012 6:47p [facility] Chelsea Chapman, 64467 518.81 Assoc, Hospitalists Morgan 493.02 466.0 250.90 Office Visit 05/05/2012 7:27a [facility], Swati Nolasco, 93352 493.02 Hospitalists Morgan 995.91 401.9 Office Visit 05/04/2012 7:26a [facility] Swati Nolasco, 62175 493.02 Hospitalists Morgan 995.91 401.9 Office Visit 05/03/2012 7:26a [facility],taylor Newell M.D. 85804 493.02 Hospitalists 995.91 401.9 Office Visit 05/02/2012 7:25a [facility], Luis Newell M.D. 72527 493.02 Hospitalists 995.91 401.9 Office Visit 03/02/2009 12:30a [facility] Donal Aguilera, 08976 493.92 [facility] 03/01/2009 12:15a [facility] Chelsea Chapman, 34685 493.92 Ass,[facility] Hospitalists Morgan Plan of Care Future Appointment(s):12/26/2017 9:00 am - Андрей Fisher M.D. at [facility].09/04/2017 9:15 am - Андрей Hadley MD at [facility]10/07/2017 9:15 am - Temi Najera MD at [facility]07/18/2017 - Андрей Fihser M.D.G57.81 Other specified mononeuropathies of right lower limbNew Therapy:Rehab ReferralFollow up:5-6 months
--- OUTSIDE RECORDS SUMMARY | 2017-07-29 13:26 | XMS REPORT ---
:1960 External Reference #:[id number] Author Organization [facility] Address [address] [address] Phone [phone] Care Team Providers Name Role Phone Nithya Blanco FNP Primary Care Physician Unavailable Payers Type Date Identification Numbers Payment Provider Subscriber Medicare Primary Effective: Policy Number: Medicare Tess Clark 2011 [id number] PayID: [id number] [address] [place] [address] [facility] Part B Policy Number: [id number] Medicaid Tess Clark PayID: [id number] [address] [place] [address] Problems Date Description Provider Status Onset: 01/15/2017 [...] Solution 0.5-2.5(3) 60uni 1 vial in Unknown [place] 0000 mg/3ML ts nebulizer rol Sulfate three [...] once daily Vitamin D3 / Active Capsules [id number] Unknown 0000 Pantoprazole / Active Tablets DR [...] CPT Code Status Date Vaccine Lot # [id number] Given 05/07/2016 Influenza Virus 3Yrs & Over Vital Signs Date Vital Result Comment 07/03/2017 Height 61 inches 5'1" Weight 153.00 [...] 60.3 >60 Egfr 77.6 >60 4 1 Clinical Laboratory Assistant: [id number] 2 Clinical Laboratory Assistant: [id number] 3 Specimen Lipemic. Result may not be [...] Procedures Date CPT Code Description Status 05/23/2017 64234 Neuroplasty/Transposition, Ulnar Nerve At Wrist Completed 05/23/2017 41544 Neuroplasty &/Or Transposition; Ulnar Nerve At Completed Elbow 05/23/2017 96951 Neuroplasty &/Or Transposition; Ulnar Nerve At Completed Elbow 03/08/2017 85757 Polysomnography Sleep Staging 4+ Parameters Completed 01/22/2017 55851 Diffusing Capacity Completed 01/22/2017 00092 Plethysmography Determination Lung Volumes & Per Completed Airway Resist 01/22/2017 08123 Pulmonary Function><Bronchodil Completed 05/06/201414660 Inject/Drain Joint/Bursa Major Completed 04/02/2013 02200 Nerve Conduction 09- Studies Completed 04/02/2013 36404 Needle Electromyography Complete, Five Or More Muscles Completed Studied 07/15/2012 99934 Color Flow Doppler/Interp & Reprt Completed 07/15/2012 82919 Pulse Wave/Continuous-Interp.RPT Completed 07/15/2012 99085 ECHO Transthorasic Realtime 2D W Doppler & Color Completed Flow Hosp 05/02/2012 20590 EKG, Interpretation Only Completed Encounters Type Date Location Provider CPT E/M Dx Office Visit 04/18/2017 [facility] 09181 G57.81 9:30a [facility] Office Visit 04/09/2017 [facility] [address] J45.909 2:30p Services Of Hearing Dog Trainer Office Visit 02/15/2017 [facility] 97388 G57.81 2:15p C[facility] Office Visit 02/01/2017 [facility] [place] [address] G56.21 1:30p C.MCristianACristian Office Visit 01/18/2017 [facility] [place] [address] G56.21 8:00a C.MCristianACristian Office Visit 01/15/2017 [facility] [place] [address] J45.901 10:15a [facility] J30.9 K21.9 R06.83 R51 G47.8 R40.0 J98.11 Office Visit 12/07/2016 2:45p [facility] 96686 G57.81 Of Ck Mora Office Visit 11/22/2016 9:00a [facility] 36709 G57.81 Of Ck Mora Office Visit 04/16/2016 11:20a [facility] Clover Webber 89114 S63.631D Of Ck SIERRA S63.633D Office Visit 03/05/2016 9:50a [facility] Marcia Baum, 01058 S63.631D Of Ck Mora Office Visit 01/19/2016 2:40p [facility] Marcia Carranzaach, 60190 S63.631A Of Ck Mora S63.633A Office Visit 10/24/2015 2:49p [facility], Sunil Mccormack, 18411 J45.52 Hospitalists MIsela J10.1 I10 E11.9 Office Visit 10/23/2015 2:38[place], [address] J45.52 Assoc, Hospitalists Morgan J10.1 I10 E11.9 Office Visit 11/03/2014 9:35a [facility], Sunil Mccormack, 10283 518.81 Hospitalists M.Eusebio 493.92 490 038.9 Office Visit 11/02/2014 9:34a [facility], Sunil Mccormack, 56531 518.81 Hospitalists MCristianDCristian 493.92 490 038.9 Office Visit 11/01/2014 9:34a [facility], Sunil Mccormack, 91521 518.81 Hospitalists M.DCristian 493.92 490 038.9 Office Visit 10/31/2014 9:34a [facility], Azucena Armendariz, 22509 518.81 Hospitalists M.DCristian 493.92 490 038.9 Office Visit 08/18/2014 8:30a [facility], Sahara Nixon, N.PCristian 09598 482.9 Hospitalists 038.9 401.9 272.4 Office Visit 08/17/2014 8:30a [facility], [place] [address] 482.9 Hospitalists 038.9 401.9 272.4 Office Visit 08/16/2014 8:[place] [facility], [address] 482.9 Assoc, Hospitalists MIsela 038.9 401.9 272.4 Office Visit 05/06/2014 8:45a [facility] Marcelo Gamboa M.D. 46541 726.10 C.M.A. Office Visit 08/19/2012 1:15p [facility],pc Андрей Lucero, 55800 995.91 Hospitalists N.P. 493.02 481 250.00 Office Visit 08/18/2012 1:14p [facility],pc Надрей Nic, 33335 995.91 Hospitalists N.P. 493.02 481 250.00 Office Visit 08/17/2012 1:14p [facility], Tracie Mills N.P. 28582 995.91 Hospitalists 493.02 481 250.00 Office Visit 08/16/2012 1:13p [facility],pc Tracie Mills N.P. 78746 995.91 Hospitalists 493.02 481 250.00 Office Visit 07/17/2012 6:48p [facility], Sunil Mccormack, 02931 518.81 Hospitalists MIsela 493.02 466.0 250.90 Office Visit 07/16/2012 6:48p [facility], Azucena Armendariz, 33299 518.81 Hospitalists MIsela 493.02 466.0 Office Visit 07/15/2012 6:47p [facility], Azucena Armendariz, 11199 518.81 Hospitalists MIsela 493.02 466.0 Office Visit 07/14/2012 6:47p [facility] Chelsea Chapman, 20399 518.81 Assoc, Hospitalists MIsela 493.02 466.0 250.90 Office Visit 05/05/2012 7:27a [facility], Swati Nolasco, 34018 493.02 Hospitalists MIsela 995.91 401.9 Office Visit 05/04/2012 7:26a [facility], Swati Nolasco 35522 493.02 Hospitalists MIsela 995.91 401.9 Office Visit 05/03/2012 7:26a [facility], Luis Newell M.D. 92604 493.02 Hospitalists 995.91 401.9 Office Visit 05/02/2012 7:25a [facility], Luis Newell M.D. 37149 493.02 Hospitalists 995.91 401.9 Office Visit 03/02/2009 12:30a [facility] Donal Aguilera, 82675 493.92 taylor Salgado M.D. Office Visit 03/01/2009 12:15a [facility] Chelsea Chapman, 89650 493.92 Assoc Yousif Mora Plan of Care Future Appointment(s):09/04/2017 9:15 am - Андрей Hadley MD at [facility]07/18/2017 9:00 am - Андрей Fisher M.D. at [facility]10/07/2017 9:15 am - Temi Najera MD at [facility]
[2017-07-29] MEDS ORDERED: NS 0.9% 1000 ML* 2,000 ML IV ONE (14:12)
[2017-07-29] MEDS ORDERED: Ondansetron INJ* 2 MG/ML VIAL IV ONE (14:12)
[2017-07-29] MEDS ORDERED: Ketorolac INJ* 30 MG/ML 1 ML VIAL IV ONE (14:12)
[2017-07-29] MEDS ORDERED: Ketorolac INJ* 15 MG/ML 1 ML VIAL ONE (14:20)
[2017-07-29 14:33] LABS: ABS Basophils 0.1 10^3/ul (0-0.2); ABS Eosinophils 0.1 10^3/ul (0-0.6); ABS Lymphocytes 2.3 10^3/ul (1.0-4.8); ABS Monocytes 0.9 10^3/ul (0-0.8); ABS Neutrophils 7.7 10^3/ul (1.5-7.7); ABS Nucleated RBC 0 10^3/ul; Eosinophil % 1.2 % (0-6); Hematocrit 43 % (35-47); Hemoglobin 14.3 g/dl (12.0-16.0); Lymphocyte % 20.5 % (25-47); Mean Corpuscular HGB Conc 34 g/dl (31-36); Mean Corpuscular Hemoglobin 29 pg (27-31); Mean Corpuscular Volume 87 fL (80-97); Mean Platelet Volume 10 um3 (7.4-10.4); Nucleated Red Blood Cells % 0; Platelet Count 210 10^3/ul (150-450); Red Blood Count 4.86 10^6/ul (4.0-5.4); Red Cell Distribution Width 14 % (10.5-15); White Blood Count 11.2 10^3/ul (3.5-10.8)
[2017-07-29 14:44] LABS: INR 0.89 (0.77-1.02)
[2017-07-29 14:54] LABS: EGFR Non-African American 52.5 (>60)
--- NOTE | 2017-07-29 15:00 | RAD ---
Indication: Chest pain, difficulty breathing. COPD. Comparison: No relevant prior exams available on the [facility] PACS for comparison. Technique: Upright AP 1426 hours Report: Low lung volumes for this patient based on comparison with the prior exam. Associated subsegmental atelectasis. The lungs and pleural spaces are otherwise clear. Negative for pneumothorax. Accounting for low lung volumes the heart, pulmonary vasculature, and mediastinal contours are unremarkable. IMPRESSION: Suboptimal inspiration for this patient with associated subsegmental atelectasis limiting assessment. No additional radiographic finding.
[2017-07-29] MEDS ORDERED: Iodixanol* (CONTRAST) 320 MG/ML 100 ML SDV IV ONE (15:25)
[2017-07-29 16:01] LABS: Urine Appearance Clear; Urine Blood Negative (Negative); Urine Color Yellow; Urine Ketones Negative (Negative); Urine Protein Negative (Negative); Urine Specific Gravity 1.026 (1.010-1.030); Urine Urobilinogen Negative (Negative)
[2017-07-29] MEDS ORDERED: Iodixanol 320 (CONTRAST) 500 ML MDV IV ONE (16:23)
--- NOTE | 2017-07-29 17:28 | RAD ---
INDICATION: Lower abdominal and pelvic pain, bilateral flank pain starting last night. Increased work of breathing. Intermittent chest pressure. Recent COPD diagnosis. COMPARISON: Chest radiograph of the same date and August 16, 2014 CT abdomen pelvis. TECHNIQUE: Multidetector CT images were obtained from the lung apices to the ischial tuberosities with 90 mL Visipaque 320 IV contrast. Oral contrast administered. CT pulmonary angiogram protocol. Multiplanar reformation including maximum intensity projection images of the thorax. CHEST REPORT: No pulmonary infiltrate, focal pulmonary lesion, pleural effusion, or pneumothorax. Negative for thoracic lymphadenopathy. Upper normal heart size. Negative for pericardial effusion. Normal diameter thoracic aorta. Negative for aortic dissection. No filling defects are identified from the main to the subsegmental pulmonary arteries to indicate presence of a pulmonary embolism. Negative for suspicious thoracic osseous lesions or fracture. CHEST IMPRESSION: 1. No evidence for pulmonary embolism. 2. No acute thoracic pathologic process evident. ABDOMEN PELVIS REPORT: Decreased density of the liver consistent with fatty infiltration. No focal liver lesions. No CT abnormality of the gallbladder, pancreas, spleen. Negative for CT abnormality of the upper GI, small bowel, infra cecal appendix. Mild diverticulosis of the sigmoid colon without findings of diverticulitis. Minimal free pelvic fluid. Negative for free air or significant hernias. Normal adrenal glands. Unremarkable kidneys with symmetric nephrograms and pyelograms. Unremarkable nondilated ureters and largely decompressed urinary bladder limiting assessment without gross abnormality. Unremarkable leftward deviated uterus and bilateral adnexal regions. Negative for lymphadenopathy. Normal diameter abdominal aorta and iliac arteries with mild atherosclerotic plaque. Physiologic distention of the IVC. No suspicious osseous lesions or fractures evident. ABDOMEN PELVIS IMPRESSION: 1. Fatty infiltration of the liver. 2. Mild diverticulosis of the sigmoid colon without findings of diverticulitis. Normal appendix documented. 3. Negative for obstructive uropathy. 4. Minimal free pelvic fluid. 5. Negative for lymphadenopathy. 6. Negative for aneurysm of the abdominal aorta.
[2017-07-29] MEDS ORDERED: Sulfamethox/Trimethoprim DS 800/160* TAB PO ONE ×2 (18:20→18:22)
[2017-07-29] MEDS ORDERED: metroNIDAZOLE TAB* 250 MG PO ONE ×2 (18:21→18:23)
--- NOTE | 2017-07-29 18:26 | ED ---
David Davis Julia, scribed for Felice Love MD on 07/29/17 at 1408 . Abdominal Pain/Female - HPI Summary HPI Summary: This patient is a 57 year old F presenting to [facility] accompanied by with a chief complaint of cramping lower abdominal (worse on L) and bilateral flank pain since last night. The patient rates the pain 9/10 in severity. Patient reports intermittent chest pressure for past 2 months, and non-productive cough. Patient denies irregular BMs, dark stool, or fever. Patient was recently diagnosed with COPD and currently uses an inhaler and wheelchair. - History of Current Complaint Chief Complaint: EDFlankPain Stated Complaint: DIFFCULTY BREATHING/ABD/BACK PAIN Time Seen by Provider: 07/29/17 14:02 Hx Obtained From: Patient Onset/Duration: Lasting Hours Timing: Constant Pain Intensity: 9 Pain Scale Used: 0-10 Numeric Location: Discrete At: RLQ, Discrete At: LLQ, Flank Character: Cramping Associated Signs and Symptoms: Positive: Other: - intermittent chest pressure for past 2 months, and non-productive cough. Allergies/Adverse Reactions: Allergies Allergy/AdvReac Type Severity Reaction Status Date / Time Azithromycin Allergy Intermediate Rash And Verified 07/29/17 13:13 Itching Morphine Allergy Intermediate Difficulty Verified 07/29/17 13:13 Breathing Adhesive Tape Allergy Mild Rash Verified 07/29/17 13:13 Amoxicillin [From Augmentin] Allergy Unknown Rash Verified 07/29/17 13:13 Clavulanic Acid Allergy Unknown Rash Verified 07/29/17 13:13 [From Augmentin] Hydromorphone [From Dilaudid] Allergy Unknown Rash Verified 07/29/17 13:13 Moxifloxacin [From Avelox] Allergy Unknown Rash Verified 07/29/17 13:13 Tapentadol [From Nucynta] Allergy Unknown Rash Verified 07/29/17 13:13 Tolmetin [From Tolectin] Allergy Unknown Rash Verified 07/29/17 13:13 Valdecoxib [From Bextra] AdvReac Unknown Rash Verified 07/29/17 13:13 PERFUMES Allergy Severe DYSPNEA Uncoded 07/29/17 13:13 PMH/Surg Hx/FS Hx/Imm Hx Endocrine/Hematology History: Reports: Hx Diabetes - TYPE II-NO MEDICATION FOR Denies: Hx Anticoagulant Therapy, Hx Blood Disorders, Hx Blood Transfusions, Hx Bone Marrow Disease, Hx Systemic Lupus Erythematosus, Hx Sickle Cell Disease , Hx Thyroid Disease, Hx Anemia, Hx Unexplained Bleeding Cardiovascular History: Reports: Hx Hypercholesterolemia, Hx Hypotension, Hx Hypertension - CURRENTLY MONITORING, Other Cardiovascular Problems/Disorders - CHEST PRESSURE- STATES IS RELATED TO COPD- STATES NEGATIVE WORKUP Denies: Hx Aneurysm, Hx Angina, Hx Angioplasty, Hx Auto Implanted Cardiovert Defib, Hx Cardiac Arrest, Hx Cardiomegaly, Hx Congenital Heart Disease, Hx Congestive Heart Failure, Hx Coronary Artery Disease, Hx Deep Vein Thrombosis, Hx Pacemaker/ICD, Hx Peripheral Vascular Disease, Hx Rheumatic Fever, Hx Syncope , Hx Valvular Heart Disease Respiratory History: Reports: Hx Asthma, Hx Chronic Bronchitis, Hx Chronic Obstructive Pulmonary Disease (COPD), Hx Pneumonia, Hx Seasonal Allergies, Other Respiratory Problems/Disorders - PNA Denies: Hx Cystic Fibrosis, Hx Lung Cancer, Hx Pleural Effusion, Hx Pulmonary Edema, Hx Pulmonary Embolism, Hx Sleep Apnea GI History: Reports: Hx Diverticulosis, Hx Gastroesophageal Reflux Disease - ON MEDICATION FOR Denies: Hx Ulcer History: Denies: Hx Acute Renal Failure, Hx Benign Prostatic Hyperplasia, Hx Chronic Renal Failure, Hx Dialysis, Hx Kidney Infection, Hx Kidney Stones, Hx Renal Disease, Other Problems/Disorders Musculoskeletal History: Reports: Hx Arthritis, Hx Back Problems, Hx Bursitis, Hx Osteoporosis, Hx Scoliosis, Hx Tendonitis, Other Musculoskeletal History - DDD Denies: Hx Rheumatoid Arthritis, Hx Congenital Bone Abnormalities, Hx Fibromyalgia, Hx Gout, Hx Orthopedic Injury Sensory History: Reports: Hx Contacts or Glasses - GLASSES, Hx Hearing Aid - LEFT EAR, Hx Hearing Problem Denies: Hx Cataracts, Hx Eye Injury, Hx Eye Prosthesis, Hx Glaucoma, Hx Macular Degeneration, Hx Vision Problem, Hx Deafness, Other Sensory Impairments Opthamlomology History: Reports: Hx Contacts or Glasses - GLASSES Denies: Hx Cataracts, Hx Eye Injury, Hx Eye Prosthesis, Hx Glaucoma, Hx Macular Degeneration, Hx Vision Problem, Other Sensory Impairments Neurological History: Reports: Hx Headaches - reportedly d/t degenerative disc disease Denies: Hx Dementia Psychiatric History: Denies: Hx Anxiety, Hx Attention Deficit Hyperactivity Disorder, Hx Eating Disorder, Hx Depression, Hx Panic Disorder, Hx Post Traumatic Stress Disorder, Hx Inpatient Treatment, Hx Community Mental Health Tx, Hx Schizophrenia, Hx Bipolar Disorder, Hx Suicide Attempt, Hx Substance Abuse, Other Psychiatric Issues/Disorders - Surgical History Surgery Procedure, Year, and Place: TUBAL LIGATION in 1988. hole in ear closed (no implant). tonsils as a child Hx Anesthesia Reactions: No - Immunization History Date of Tetanus Vaccine: Unk Date of Influenza Vaccine: None Infectious Disease History: Yes Infectious Disease History: Reports: Hx of Known/Suspected MRSA, Hx Shingles - [id number], History Other Infectious Disease - influenza A Denies: Hx Clostridium Difficile, Hx Hepatitis, Hx Human Immunodeficiency Virus (HIV), Hx Tuberculosis, Traveled Outside the [place] in Last 30 Days - Family History Known Family History: Positive: Cardiac Disease, Hypertension, Diabetes - Social History Alcohol Use: None Substance Use Type: Reports: None Hx Tobacco Use: No Smoking Status (MU): Never Smoked Tobacco Have You Smoked in the Last Year: No Review of Systems Negative: Fever Positive: Other - chest pressure Positive: Cough - non-productive Gastrointestinal: Other - negative - dark or irregular BM Positive: Abdominal Pain - worse on LLQ, Other - bilateral flank pain All Other Systems Reviewed And Are Negative: Yes Physical Exam - Summary Physical Exam Summary: General: well-appearing, mild pain distress Skin: warm, color reflects adequate perfusion, dry Head: normal Eyes: EOMI, ALLIE ENT: normal, dry oral mucosa Neck: supple, nontender Respiratory: CTA, breath sounds present Cardiovascular: RRR Abdomen: soft, mild lower abdominal tenderness without rebound Bowel: present Musculoskeletal: chronic R ankle dorsiflexion and inversion , strength/ROM intact Neurological: normal, sensory/motor intact, A&O x3 Psychological: affect/mood appropriate Triage Information Reviewed: Yes Vital Signs On Initial Exam: Initial Vitals Temp Pulse Resp BP Pulse Ox 99.1 F 107 18 137/88 95 07/29/17 13:10 07/29/17 13:10 07/29/17 13:10 07/29/17 13:10 07/29/17 13:10 Vital Signs Reviewed: Yes Diagnostics - Vital Signs Vital Signs Temp Pulse Resp BP Pulse Ox 07/29/17 13:10 99.1 F 107 18 137/88 95 - Laboratory Lab Results: Lab Results 07/29/17 07/29/17 07/29/17 Range/Units 14:24 14:24 14:24 WBC 11.2 H (3.5-10.8) 10^3/ul RBC 4.86 (4.0-5.4) 10^6/ul Hgb 14.3 (12.0-16.0) g/dl Hct 43 (35-47) % MCV 87 (80-97) fL MCH 29 (27-31) pg MCHC 34 (31-36) g/dl RDW 14 (10.5-15) % Plt Count 210 (150-450) 10^3/ul MPV 10 (7.4-10.4) um3 Neut % (Auto) 68.8 (38-83) % Lymph % (Auto) 20.5 L (25-47) % Irion % (Auto) 8.5 (1-9) % Eos % (Auto) 1.2 (0-6) % Baso % (Auto) 1.0 (0-2) % Absolute Neuts (auto) 7.7 (1.5-7.7) 10^3/ul Absolute Lymphs (auto) 2.3 (1.0-4.8) 10^3/ul Absolute Monos (auto) 0.9 H (0-0.8) 10^3/ul Absolute Eos (auto) 0.1 (0-0.6) 10^3/ul Absolute Basos (auto) 0.1 (0-0.2) 10^3/ul Absolute Nucleated RBC 0 10^3/ul Nucleated RBC % 0 INR (Anticoag Therapy) (0.77-1.02) APTT (26.0-36.3) seconds D-Dimer, Quantitative (Less Than 230) ng/mL Sodium 139 (133-145) mmol/L Potassium 3.8 (3.5-5.0) mmol/L Chloride 107 (101-111) mmol/L Carbon Dioxide 24 (22-32) mmol/L Anion Gap 8 (2-11) mmol/L BUN 20 (6-24) mg/dL Creatinine 1.08 H (0.51-0.95) mg/dL Est GFR ( Amer) 67.5 (>60) Est GFR (Non-Af Amer) 52.5 (>60) BUN/Creatinine Ratio 18.5 (8-20) Glucose 108 H (70-100) mg/dL Lactic Acid (0.5-2.0) mmol/L Calcium 9.0 (8.6-10.3) mg/dL Total Bilirubin 0.80 (0.2-1.0) mg/dL AST 17 (13-39) U/L ALT 18 (7-52) U/L Alkaline Phosphatase 60 (34-104) U/L Total Creatine Kinase 38 (10-223) U/L Troponin I 0.00 (<0.04) ng/mL C-Reactive Protein 40.39 H (< 5.00) mg/L B-Natriuretic Peptide 20 ( - 100) pg/mL Total Protein 6.7 (6.4-8.9) g/dL Albumin 4.0 (3.2-5.2) g/dL Globulin 2.7 (2-4) g/dL Albumin/Globulin Ratio 1.5 (1-3) Lipase 27 (11.0-82.0) U/L TSH 1.74 (0.34-5.60) mcIU/mL Urine Color Urine Appearance Urine pH (5-9) Ur Specific Fletcher (1.010-1.030) Urine Protein (Negative) Urine Ketones (Negative) Urine Blood (Negative) Urine Nitrate (Negative) Urine Bilirubin (Negative) Urine Urobilinogen (Negative) Ur Leukocyte Esterase (Negative) Urine WBC (Auto) (Absent) Urine RBC (Auto) (Absent) Ur Squamous Epith Cells (Absent) Urine Bacteria (Absent) Urine Glucose (Negative) 07/29/17 07/29/17 07/29/17 Range/Units 14:24 14:24 15:34 WBC (3.5-10.8) 10^3/ul RBC (4.0-5.4) 10^6/ul Hgb (12.0-16.0) g/dl Hct (35-47) % MCV (80-97) fL MCH (27-31) pg MCHC (31-36) g/dl RDW (10.5-15) % Plt Count (150-450) 10^3/ul MPV (7.4-10.4) um3 Neut % (Auto) (38-83) % Lymph % (Auto) (25-47) % Irion % (Auto) (1-9) % Eos % (Auto) (0-6) % Baso % (Auto) (0-2) % Absolute Neuts (auto) (1.5-7.7) 10^3/ul Absolute Lymphs (auto) (1.0-4.8) 10^3/ul Absolute Monos (auto) (0-0.8) 10^3/ul Absolute Eos (auto) (0-0.6) 10^3/ul Absolute Basos (auto) (0-0.2) 10^3/ul Absolute Nucleated RBC 10^3/ul Nucleated RBC % INR (Anticoag Therapy) 0.89 (0.77-1.02) APTT 35.3 (26.0-36.3) seconds D-Dimer, Quantitative 262 H (Less Than 230) ng/mL Sodium (133-145) mmol/L Potassium (3.5-5.0) mmol/L Chloride (101-111) mmol/L Carbon Dioxide (22-32) mmol/L Anion Gap (2-11) mmol/L BUN (6-24) mg/dL Creatinine (0.51-0.95) mg/dL Est GFR ( Amer) (>60) Est GFR (Non-Af Amer) (>60) BUN/Creatinine Ratio (8-20) Glucose (70-100) mg/dL Lactic Acid 0.8 (0.5-2.0) mmol/L Calcium (8.6-10.3) mg/dL Total Bilirubin (0.2-1.0) mg/dL AST (13-39) U/L ALT (7-52) U/L Alkaline Phosphatase (34-104) U/L Total Creatine Kinase (10-223) U/L Troponin I (<0.04) ng/mL C-Reactive Protein (< 5.00) mg/L B-Natriuretic Peptide ( - 100) pg/mL Total Protein (6.4-8.9) g/dL Albumin (3.2-5.2) g/dL Globulin (2-4) g/dL Albumin/Globulin Ratio (1-3) Lipase (11.0-82.0) U/L TSH (0.34-5.60) mcIU/mL Urine Color Yellow Urine Appearance Clear Urine pH 5.0 (5-9) Ur Specific Fletcher 1.026 (1.010-1.030) Urine Protein Negative (Negative) Urine Ketones Negative (Negative) Urine Blood Negative (Negative) Urine Nitrate Negative (Negative) Urine Bilirubin Negative (Negative) Urine Urobilinogen Negative (Negative) Ur Leukocyte Esterase 2+ H (Negative) Urine WBC (Auto) 1+(6-10/hpf) H (Absent) Urine RBC (Auto) Trace(0-2/hpf) (Absent) Ur Squamous Epith Cells Present H (Absent) Urine Bacteria Absent (Absent) Urine Glucose Negative (Negative) Result Diagrams: 07/29/17 14:24 07/29/17 14:24 Lab Statement: Any lab studies that have been ordered have been reviewed, and results considered in the medical decision making process. - Radiology CXR Radiology Interpretation Completed By: Radiologist - Suboptimal inspiration for this patient with associated subsegmental atelectasis limiting assessment. No additional radiographic finding. ED Physician has reviewed this report. - CT Chest/A/P CT Interpretation Completed By: Radiologist - 1. Fatty infiltration of the liver. 2. Mild diverticulosis of the sigmoid colon without findings of diverticulitis. Normal appendix documented. 3. Negative for obstructive uropathy. 4. Minimal free pelvic fluid. 5. Negative for lymphadenopathy. 6. Negative for aneurysm of the abdominal aorta. ED Physician has reviewed this report. - EKG 15:06 Cardiac Rate: NL EKG Rhythm: Sinus Rhythm - at 84 BPM Ectopy: None EKG Interpretation: reveals flat T V3-V6 Abdominal Pain Fem Course/Dx - Course Course Of Treatment: DISCUSSED RESULT WITH PATIENT AND . PATIENT REPORTS THESE SX FEEL LIKE HER PRIOR DIVERTICULITIS. WE DISCUSSED TREATING FOR POSSIBLE EARLY DIVERTICULITIS; THE PATIENT PREFERS TO TREAT NOW. F/U PMD; RETURN IF WORSE. - Diagnoses Provider Diagnoses: Abdominal pain, Diverticulosis Discharge - Discharge Plan Condition: Stable Disposition: HOME Prescriptions: Metronidazole [Flagyl 500 MG TAB] 500 mg PO QID #38 tab Sulfamethox/Trimethoprim DS* [Bactrim DS 800/160 TAB*] 1 tab PO BID #18 tab Patient Education Materials: Diverticulosis (ED), Abdominal Pain (ED) Referrals: Francis TARANGOPNithya [Primary Care Provider] - Additional Instructions: FOLLOW UP WITH YOUR DOCTOR. RETURN TO THE EMERGENCY DEPARTMENT FOR ANY WORSENING OF YOUR CONDITION; PAIN, FEVER, DEHYDRATION, YOU FEEL ILL OR QUESTIONS OR CONCERNS. The documentation as recorded by the David pettit Julia accurately reflects the service I personally performed and the decisions made by me, Felice Love MD.
[2017-07-29 18:49] VITALS: BP 132/81
== END 2017-07-29 18:49 | disposition home or self-care (01) ==
LOC: ED 13:08
DX: R10.32 Left lower quadrant pain (principal); K57.30 Diverticulosis of large intestine without perforation or abscess without bleeding; K76.0 Fatty (change of) liver, not elsewhere classified; J98.11 Atelectasis; J44.9 Chronic obstructive pulmonary disease, unspecified; Z99.3 Dependence on wheelchair; Z88.3 Allergy status to other anti-infective agents; Z88.5 Allergy status to narcotic agent; Z88.8 Allergy status to other drugs, medicaments and biological substances
CPT/HCPCS: 36415; 71045; 71275; 74177; 80053; 81003; 81015; 82550; 83605; 83690; 83880; 84443; 84484; 85025; 85379; 85610; 85730; 86140; 87086; 93005; 96361; 96374; 96375; 99283; A9270-GY; J1885; J2405; Q9967

== ENCOUNTER 2017-08-05 05:23 | Emergency (ER) | payer MEDICARE, MEDICAID ==
[2017-08-05] MEDS ORDERED: NS 0.9% 1000 ML* 1,000 ML IV ONE (05:45)
[2017-08-05] MEDS ORDERED: Ketorolac INJ* 30 MG/ML 1 ML VIAL IV ONE (05:45)
[2017-08-05 07:32] LABS: Urine Appearance Clear; Urine Blood 1+ (Negative); Urine Color Yellow; Urine Ketones Negative (Negative); Urine Protein Negative (Negative); Urine Urobilinogen Negative (Negative)
[2017-08-05] MEDS ORDERED: traMADol TAB* 50 MG PO ONE (07:54)
--- NOTE | 2017-08-05 07:55 | ED ---
Juliana Davis Gabriel, scribed for Felice Love MD on 08/05/17 at 0720 . Progress - Progress Note Progress Note: CT L-Spine reveals, per radiologist, mild stenosis at L4-L5 related to facet joint hypertrophy and a small central disc bulge. ED physician has reviewed this radiology report. CT ABD/Pelvis reveals, per radiologist, No acute findings ED physician has reviewed this radiology report. The documentation as recorded by the Juliana pettit Gabriel accurately reflects the service I personally performed and the decisions made by , Felice Love MD.
--- NOTE | 2017-08-05 07:56 | ED ---
Briana Davis Abhishek, scribed for Felice Love MD on 08/05/17 at 0545 . Lower Extremity - HPI Summary HPI Summary: This patient is a 57 year old F presenting to [facility] accompanied by_ with a chief complaint of left leg pain since 399 today. PT states the acute pain is on top of chronic leg pain. Gradual onset and worse since today. Previously intermittent currently, constant. The pain is described as a sharp pain. The pain radiates into the back. Pt also states that a previous hospital visit reported a possible torn ligament according to previous hospital visit. The patient rates the pain 10/10 in severity. Symptoms aggravated by movement. Symptoms alleviated by nothing. Patient reports burning urination, numbness/ tingling in the left leg, and urinary pain. Patient denies urinary incontinence , and bowel incontinence. - History of Current Complaint Chief Complaint: EDExtremityLower Stated Complaint: LEFT LEG/ BACK PAIN Hx Obtained From: Patient, Family/School Resource Officer Onset of Pain: Hours - since 399 Onset/Duration: Hours - since 399 Severity Initially: Severe Severity Currently: Severe Pain Intensity: 10 Pain Scale Used: 0-10 Numeric Timing: Constant Location: Radiates To - back Character Of Pain: Sharp Associated Signs And Symptoms: Positive: Other - burning urination, numbness/ tingling in the left leg, and urinary pain. Negative urinary incontinence, and bowel incontinence. Aggravating Factor(s): Movement Alleviating Factor(s): Nothing - Allergies/Home Medications Allergies/Adverse Reactions: Allergies Allergy/AdvReac Type Severity Reaction Status Date / Time Azithromycin Allergy Intermediate Rash And Verified 07/29/17 13:13 Itching Morphine Allergy Intermediate Difficulty Verified 07/29/17 13:13 Breathing Adhesive Tape Allergy Mild Rash Verified 07/29/17 13:13 Amoxicillin [From Augmentin] Allergy Unknown Rash Verified 07/29/17 13:13 Clavulanic Acid Allergy Unknown Rash Verified 07/29/17 13:13 [From Augmentin] Hydromorphone [From Dilaudid] Allergy Unknown Rash Verified 07/29/17 13:13 Moxifloxacin [From Avelox] Allergy Unknown Rash Verified 07/29/17 13:13 Tapentadol [From Nucynta] Allergy Unknown Rash Verified 07/29/17 13:13 Tolmetin [From Tolectin] Allergy Unknown Rash Verified 07/29/17 13:13 Valdecoxib [From Bextra] AdvReac Unknown Rash Verified 07/29/17 13:13 PERFUMES Allergy Severe DYSPNEA Uncoded 07/29/17 13:13 PMH/Surg Hx/FS Hx/Imm Hx Endocrine/Hematology History: Reports: Hx Diabetes - TYPE II-NO MEDICATION FOR Denies: Hx Anticoagulant Therapy, Hx Blood Disorders, Hx Blood Transfusions, Hx Bone Marrow Disease, Hx Systemic Lupus Erythematosus, Hx Sickle Cell Disease , Hx Thyroid Disease, Hx Anemia, Hx Unexplained Bleeding Cardiovascular History: Reports: Hx Hypercholesterolemia, Hx Hypotension, Hx Hypertension - CURRENTLY MONITORING, Other Cardiovascular Problems/Disorders - CHEST PRESSURE- STATES IS RELATED TO COPD- STATES NEGATIVE WORKUP Denies: Hx Aneurysm, Hx Angina, Hx Angioplasty, Hx Auto Implanted Cardiovert Defib, Hx Cardiac Arrest, Hx Cardiomegaly, Hx Congenital Heart Disease, Hx Congestive Heart Failure, Hx Coronary Artery Disease, Hx Deep Vein Thrombosis, Hx Pacemaker/ICD, Hx Peripheral Vascular Disease, Hx Rheumatic Fever, Hx Syncope , Hx Valvular Heart Disease Respiratory History: Reports: Hx Asthma, Hx Chronic Bronchitis, Hx Chronic Obstructive Pulmonary Disease (COPD), Hx Pneumonia, Hx Seasonal Allergies, Other Respiratory Problems/Disorders - PNA Denies: Hx Cystic Fibrosis, Hx Lung Cancer, Hx Pleural Effusion, Hx Pulmonary Edema, Hx Pulmonary Embolism, Hx Sleep Apnea GI History: Reports: Hx Diverticulosis, Hx Gastroesophageal Reflux Disease - ON MEDICATION FOR Denies: Hx Ulcer History: Denies: Hx Acute Renal Failure, Hx Benign Prostatic Hyperplasia, Hx Chronic Renal Failure, Hx Dialysis, Hx Kidney Infection, Hx Kidney Stones, Hx Renal Disease, Other Problems/Disorders Musculoskeletal History: Reports: Hx Arthritis, Hx Back Problems, Hx Bursitis, Hx Osteoporosis, Hx Scoliosis, Hx Tendonitis, Other Musculoskeletal History - DDD Denies: Hx Rheumatoid Arthritis, Hx Congenital Bone Abnormalities, Hx Fibromyalgia, Hx Gout, Hx Orthopedic Injury Sensory History: Reports: Hx Contacts or Glasses - GLASSES, Hx Hearing Aid - LEFT EAR, Hx Hearing Problem Denies: Hx Cataracts, Hx Eye Injury, Hx Eye Prosthesis, Hx Glaucoma, Hx Macular Degeneration, Hx Vision Problem, Hx Deafness, Other Sensory Impairments Opthamlomology History: Reports: Hx Contacts or Glasses - GLASSES Denies: Hx Cataracts, Hx Eye Injury, Hx Eye Prosthesis, Hx Glaucoma, Hx Macular Degeneration, Hx Vision Problem, Other Sensory Impairments Neurological History: Reports: Hx Headaches - reportedly d/t degenerative disc disease Denies: Hx Dementia Psychiatric History: Denies: Hx Anxiety, Hx Attention Deficit Hyperactivity Disorder, Hx Eating Disorder, Hx Depression, Hx Panic Disorder, Hx Post Traumatic Stress Disorder, Hx Inpatient Treatment, Hx Community Mental Health Tx, Hx Schizophrenia, Hx Bipolar Disorder, Hx Suicide Attempt, Hx Substance Abuse, Other Psychiatric Issues/Disorders - Surgical History Surgery Procedure, Year, and Place: TUBAL LIGATION in 1988. hole in ear closed (no implant). tonsils as a child Hx Anesthesia Reactions: No - Immunization History Date of Tetanus Vaccine: Unk Date of Influenza Vaccine: None Infectious Disease History: Yes Infectious Disease History: Reports: Hx of Known/Suspected MRSA, Hx Shingles - [id number], History Other Infectious Disease - influenza A Denies: Hx Clostridium Difficile, Hx Hepatitis, Hx Human Immunodeficiency Virus (HIV), Hx Tuberculosis, Traveled Outside the in Last 30 Days - Family History Known Family History: Positive: Cardiac Disease, Hypertension, Diabetes - Social History Alcohol Use: None Substance Use Type: Reports: None Hx Tobacco Use: No Smoking Status (MU): Never Smoked Tobacco Have You Smoked in the Last Year: No Review of Systems Constitutional: Negative Eyes: Negative ENT: Negative Cardiovascular: Negative Respiratory: Negative Gastrointestinal: Other - Negative bowel incontinence Genitourinary: Other - Negative urinary incontinence Positive: burning, pain Musculoskeletal: Other - Left leg pain (radiating into the lower back) Skin: Negative Positive: Numbness - numbness/ tingling in the left leg, Psychological: Normal All Other Systems Reviewed And Are Negative: Yes Physical Exam - Summary Physical Exam Summary: General: well-appearing, Mild pain distress Skin: warm, color reflects adequate perfusion, dry Head: normal Eyes: EOMI, ALLIE ENT: normal Neck: supple, nontender Respiratory: CTA, breath sounds present Cardiovascular: RRR Abdomen: soft, nontender Bowel: present Musculoskeletal: Decreased ROM in the left leg secondary to pain Plantar flexion normal dorsal flexion normal, Right leg decrease plantar flexion dorsal flexion which his chronic Neurological: normal, sensory/motor intact, A&O x3, No sensation deficit on examination Psychological: affect/mood appropriate Triage Information Reviewed: Yes Vital Signs On Initial Exam: Initial Vitals Temp Pulse Resp BP Pulse Ox 99.1 F 84 20 163/99 95 08/05/17 05:25 08/05/17 05:25 08/05/17 05:25 08/05/17 05:25 08/05/17 05:25 Vital Signs Reviewed: Yes - Damaris Coma Scale Coma Scale Total: 15 Diagnostics - Vital Signs Vital Signs Temp Pulse Resp BP Pulse Ox 08/05/17 05:25 99.1 F 84 20 163/99 95 - Laboratory Lab Results: Lab Results 08/05/17 Range/Units 06:47 Urine Color Yellow Urine Appearance Clear Urine pH 7.0 (5-9) Ur Specific [place] 1.010 (1.010-1.030) Urine Protein Negative (Negative) Urine Ketones Negative (Negative) Urine Blood 1+ H (Negative) Urine Nitrate Negative (Negative) Urine Bilirubin Negative (Negative) Urine Urobilinogen Negative (Negative) Ur Leukocyte Esterase Trace H (Negative) Urine WBC (Auto) Trace(0-5/hpf) (Absent) Urine RBC (Auto) Trace(0-2/hpf) (Absent) Ur Squamous Epith Cells Present H (Absent) Urine Bacteria Absent (Absent) Urine Glucose Negative (Negative) Lab Statement: Any lab studies that have been ordered have been reviewed, and results considered in the medical decision making process. Lower Extremity Course/Dx - Course Course Of Treatment: NO NEUROLOGIC DEFICT IN ED AT THIS TIME. DISCUSSED RESULTS WITH PATIENT. F/U PMD; RETURN IF WORSE. - Diagnoses Provider Diagnoses: Low back pain, Sciatica of left side Discharge - Discharge Plan Condition: Stable Disposition: HOME Patient Education Materials: Sciatica (ED), Acute Low Back Pain (ED), Lumbar Radiculopathy (ED) Referrals: Nithya Ruggiero RN [Primary Care Provider] - Additional Instructions: FOLLOW UP WITH YOUR DOCTOR. RETURN TO THE EMERGENCY DEPARTMENT FOR ANY WORSENING OF YOUR CONDITION; PAIN, WEAKNESS, DIFFICULTY CONTROLLING BOWEL OR BLADDER OR QUESTIONS OR CONCERNS. The documentation as recorded by the Briana pettit Abhishek accurately reflects the service I personally performed and the decisions made by me, Felice Love MD.
[2017-08-05 08:23] VITALS: BP 145/88
--- NOTE | 2017-08-05 10:18 | RAD ---
Indication: Left leg pain. CT of the abdomen and pelvis was performed without oral or IV contrast administration. Coronal and sagittal reconstructed images were obtained. Lung bases demonstrate no pleural fluid nodules or masses. Heart is of normal size without evidence of pericardial effusion. The liver is normal in size. It is diffusely decreased in density consistent with steatosis. The gallbladder demonstrates no calcified gallstones. No pericholecystic fluid or wall thickening is identified. The common duct is not dilated. The pancreas demonstrates no mass or pancreatic duct dilatation. The spleen is normal in size. No adrenal masses are noted. The kidneys demonstrate no hydronephrosis. No retroperitoneal lymphadenopathy is noted. The colon is filled with stool. The appendix is distended with air and demonstrates contrast within it. There is residual contrast and scattered diverticula. The urinary bladder is unremarkable. The uterus and ovaries are unremarkable. No hernias are noted. No free fluid is identified. IMPRESSION: No abnormal masses or fluid collections are identified. Appendix is normal.
--- NOTE | 2017-08-05 10:22 | RAD ---
Indication: Low back pain radiating to the left lower extremity. CT of the lumbar spine was obtained in the axial plane. Sagittal and coronal reconstructed images were obtained. There is likely partially lumbarized S1. The S1-S2 disc is hypoplastic. At L5-S1, there is degenerative disc disease. Marked facet hypertrophy is noted. There is spondylolysis of the pars interarticularis at L5 bilaterally. No definite spondylolisthesis is noted. Broad-based protrusion is noted. At L4-5, there is no disc protrusion. Moderate degree of facet hypertrophy is noted. At L3-4, no focal protrusion is noted. No central or foraminal stenosis is noted. At L1-2 and L2-3, the disc spaces appear unremarkable. IMPRESSION: Degenerative disc disease with broad-based protrusion and bilateral spondylolysis at L5-S1. Partially lumbarized S1. Degenerative disc disease at L1-2 and L2-3.
== END 2017-08-05 08:20 | disposition home or self-care (01) ==
LOC: ED 05:23
DX: M54.5 Low back pain (principal); M54.32 Sciatica, left side; M79.605 Pain in left leg; E11.9 Type 2 diabetes mellitus without complications
CPT/HCPCS: 72131; 74176; 81003; 81015; 87086; 96374; 99283; A9270-GY; J1885

== ENCOUNTER 2017-08-17 11:27 | Emergency (ER) | payer MEDICARE, MEDICAID ==
--- NOTE | 2017-08-17 13:15 | RAD ---
HISTORY: Cough and bodyaches COMPARISONS: July 29, 2015 VIEWS: 2: Frontal and lateral views of the chest. FINDINGS: CARDIOMEDIASTINAL SILHOUETTE: The cardiomediastinal silhouette is normal. ROB: The rob are normal. PLEURA: The costophrenic angles are sharp. No pleural abnormalities are noted. LUNG PARENCHYMA: The lungs are clear. ABDOMEN: The upper abdomen is clear. There is no subphrenic gas. BONES AND SOFT TISSUES: Degenerative changes are noted along the spine. OTHER: None. IMPRESSION: NO ACTIVE CARDIOPULMONARY DISEASE.
[2017-08-17] MEDS ORDERED: Acetaminophen TAB* 325 MG PO ONE (13:28)
[2017-08-17] MEDS ORDERED: Ketorolac INJ* 30 MG/ML 1 ML VIAL IV ONE (13:35)
[2017-08-17] MEDS ORDERED: Ketorolac INJ* 60 MG/2 ML VIAL IM ONE (13:37)
[2017-08-17 14:51] VITALS: BP 130/77
--- NOTE | 2017-08-17 18:09 | ED ---
David Davis Julia, scribed for Nolberto Dominguez MD on 08/17/17 at 1335 . Complex/Multi-Sys Presentation - HPI Summary HPI Summary: This patient is a 57 year old F BIBA to [facility] accompanied by with a chief complaint of coughing and cold symptoms since 08/14/17. Patient reports ear pain, throat pain, body aches, and chest and back pain with cough; back pain is described as someones pinching it. The patient rates the pain 10/10 in severity. Symptoms aggravated by cough. Symptoms alleviated by ibuprofen.Patient is unaware of fever. Patient recently stopped 10 days of antibiotics. She has a history of asthma and COPD. - History Of Current Complaint Chief Complaint: EDFluSymptoms Time Seen by Provider: 08/17/17 12:07 Hx Obtained From: Patient Onset/Duration: Lasting Days Timing: Constant Character: Unable To Describe - "someones pinching it" Aggravating Factor(s): cough Alleviating Factor(s): ibuprofen Associated Signs And Symptoms: Positive: Other - reports ear pain, throat pain, body aches, and chest and back pain with cough; back pain is described as someones pinching it - Allergies/Home Medications Allergies/Adverse Reactions: Allergies Allergy/AdvReac Type Severity Reaction Status Date / Time Azithromycin Allergy Intermediate Rash And Verified 07/29/17 13:13 Itching Morphine Allergy Intermediate Difficulty Verified 07/29/17 13:13 Breathing Adhesive Tape Allergy Mild Rash Verified 07/29/17 13:13 Amoxicillin [From Augmentin] Allergy Unknown Rash Verified 07/29/17 13:13 Clavulanic Acid Allergy Unknown Rash Verified 07/29/17 13:13 [From Augmentin] Hydromorphone [From Dilaudid] Allergy Unknown Rash Verified 07/29/17 13:13 Moxifloxacin [From Avelox] Allergy Unknown Rash Verified 07/29/17 13:13 Tapentadol [From Nucynta] Allergy Unknown Rash Verified 07/29/17 13:13 Tolmetin [From Tolectin] Allergy Unknown Rash Verified 07/29/17 13:13 Valdecoxib [From Bextra] AdvReac Unknown Rash Verified 07/29/17 13:13 PERFUMES Allergy Severe DYSPNEA Uncoded 07/29/17 13:13 PMH/Surg Hx/FS Hx/Imm Hx Endocrine/Hematology History: Reports: Hx Diabetes - TYPE II-NO MEDICATION FOR Denies: Hx Anticoagulant Therapy, Hx Blood Disorders, Hx Blood Transfusions, Hx Bone Marrow Disease, Hx Systemic Lupus Erythematosus, Hx Sickle Cell Disease , Hx Thyroid Disease, Hx Anemia, Hx Unexplained Bleeding Cardiovascular History: Reports: Hx Hypercholesterolemia, Hx Hypotension, Hx Hypertension - CURRENTLY MONITORING, Other Cardiovascular Problems/Disorders - CHEST PRESSURE- STATES IS RELATED TO COPD- STATES NEGATIVE WORKUP Denies: Hx Aneurysm, Hx Angina, Hx Angioplasty, Hx Auto Implanted Cardiovert Defib, Hx Cardiac Arrest, Hx Cardiomegaly, Hx Congenital Heart Disease, Hx Congestive Heart Failure, Hx Coronary Artery Disease, Hx Deep Vein Thrombosis, Hx Pacemaker/ICD, Hx Peripheral Vascular Disease, Hx Rheumatic Fever, Hx Syncope , Hx Valvular Heart Disease Respiratory History: Reports: Hx Asthma, Hx Chronic Bronchitis, Hx Chronic Obstructive Pulmonary Disease (COPD), Hx Pneumonia, Hx Seasonal Allergies, Other Respiratory Problems/Disorders - PNA Denies: Hx Cystic Fibrosis, Hx Lung Cancer, Hx Pleural Effusion, Hx Pulmonary Edema, Hx Pulmonary Embolism, Hx Sleep Apnea GI History: Reports: Hx Diverticulosis, Hx Gastroesophageal Reflux Disease - ON MEDICATION FOR Denies: Hx Ulcer History: Denies: Hx Acute Renal Failure, Hx Benign Prostatic Hyperplasia, Hx Chronic Renal Failure, Hx Dialysis, Hx Kidney Infection, Hx Kidney Stones, Hx Renal Disease, Other Problems/Disorders Musculoskeletal History: Reports: Hx Arthritis, Hx Back Problems, Hx Bursitis, Hx Osteoporosis, Hx Scoliosis, Hx Tendonitis, Other Musculoskeletal History - DDD Denies: Hx Rheumatoid Arthritis, Hx Congenital Bone Abnormalities, Hx Fibromyalgia, Hx Gout, Hx Orthopedic Injury Sensory History: Reports: Hx Contacts or Glasses - GLASSES, Hx Hearing Aid - LEFT EAR, Hx Hearing Problem Denies: Hx Cataracts, Hx Eye Injury, Hx Eye Prosthesis, Hx Glaucoma, Hx Macular Degeneration, Hx Vision Problem, Hx Deafness, Other Sensory Impairments Opthamlomology History: Reports: Hx Contacts or Glasses - GLASSES Denies: Hx Cataracts, Hx Eye Injury, Hx Eye Prosthesis, Hx Glaucoma, Hx Macular Degeneration, Hx Vision Problem, Other Sensory Impairments Neurological History: Reports: Hx Headaches - reportedly d/t degenerative disc disease Denies: Hx Dementia Psychiatric History: Denies: Hx Anxiety, Hx Attention Deficit Hyperactivity Disorder, Hx Eating Disorder, Hx Depression, Hx Panic Disorder, Hx Post Traumatic Stress Disorder, Hx Inpatient Treatment, Hx Community Mental Health Tx, Hx Schizophrenia, Hx Bipolar Disorder, Hx Suicide Attempt, Hx Substance Abuse, Other Psychiatric Issues/Disorders - Surgical History Surgery Procedure, Year, and Place: TUBAL LIGATION in 1988. hole in ear closed (no implant). tonsils as a child Hx Anesthesia Reactions: No - Immunization History Date of Tetanus Vaccine: Unk Date of Influenza Vaccine: None Infectious Disease History: Yes Infectious Disease History: Reports: Hx of Known/Suspected MRSA, Hx Shingles - [id number], History Other Infectious Disease - influenza A Denies: Hx Clostridium Difficile, Hx Hepatitis, Hx Human Immunodeficiency Virus (HIV), Hx Tuberculosis, Traveled Outside the [place] in Last 30 Days - Family History Known Family History: Positive: Cardiac Disease, Hypertension, Diabetes - Social History Alcohol Use: None Substance Use Type: Reports: None Hx Tobacco Use: No Smoking Status (MU): Never Smoked Tobacco Have You Smoked in the Last Year: No Review of Systems Positive: Other - body aches. Negative: Fever Positive: Sore Throat, Ear Ache Positive: Chest Pain Positive: Cough Musculoskeletal: Other - back pain All Other Systems Reviewed And Are Negative: Yes Physical Exam - Summary Physical Exam Summary: Appearance: The patient is well-nourished in no acute distress and in no acute pain. Skin: The skin is warm and dry and skin color reflects adequate perfusion. HEENT: The head is normocephalic and atraumatic. The pupils are equal and reactive. The conjunctivae are clear and without drainage. Nares are patent and without drainage. Mouth reveals moist mucous membranes and the throat is without erythema and exudate. The external ears are intact. The ear canals are patent and without drainage. The tympanic membranes are intact. Neck: the neck is supple with full range of motion and non-tender. There are no carotid bruits. There is no neck vein distension. Respiratory: Chest is non-tender. Lungs are clear to auscultation and breath sounds are symmetrical and equal. Cardiovascular: Heart is regular rhythm with tacycardic rate. There is no murmur or rub auscultated. There is no peripheral edema and pulses are symmetrical and equal. Abdomen: The abdomen is soft and non-tender. There are normal bowel sounds heard in all four quadrants and there is no organomegaly palpated. Musculoskeletal: There is no back tenderness noted. Extremities are non-tender with full range of motion. There is good capillary refill. There is no peripheral edema or calf tenderness elicited. Neurological: Patient is alert and oriented to person, place and time. The patient has symmetrical motor strength in all four extremities. Cranial nerves are grossly intact. Deep tendon reflexes are symmetrical and equal in all four extremities. Psychiatric: The patient has an appropriate affect and does not exhibit any anxiety or depression. Triage Information Reviewed: Yes Vital Signs On Initial Exam: Initial Vitals Temp Pulse Resp BP Pulse Ox 98.8 F 115 18 123/83 98 08/17/17 11:33 08/17/17 11:33 08/17/17 11:33 08/17/17 11:33 08/17/17 11:33 Vital Signs Reviewed: Yes - Damaris Coma Scale Coma Scale Total: 15 Diagnostics - Vital Signs Vital Signs Temp Pulse Resp BP Pulse Ox 08/17/17 12:00 111 137/83 94 08/17/17 11:54 112 95 08/17/17 11:53 152/87 08/17/17 11:45 18 08/17/17 11:33 98.8 F 115 18 123/83 98 - Laboratory Lab Results: Lab Results 08/17/17 Range/Units 12:26 Influenza A (Rapid) Negative (Negative) Influenza B (Rapid) Positive H (Negative) Lab Statement: Any lab studies that have been ordered have been reviewed, and results considered in the medical decision making process. - Radiology CXR Radiology Interpretation Completed By: Radiologist - NO ACTIVE CARDIOPULMONARY DISEASE. ED Physician has reviewed this report Complex Multi-Symp Course/Dx Course Of Treatment: Ms. Clark has been suffering from a bad URI for about 3 days. She has malaise, myalgias, cough and congestion. Her vitals were OK aside from some mild tachycardia. She was positive for influenza B. - Diagnoses Provider Diagnoses: Influenza Discharge - Discharge Plan Condition: Stable Disposition: HOME Prescriptions: Ondansetron ODT TAB* [Zofran Odt TAB*] 4 mg PO Q6H PRN #20 tab.odt PRN Reason: Nausea/Vomiting Oseltamivir CAP* [Tamiflu CAP*] 75 mg PO BID #10 cap traMADol TAB* [Ultram*] 25 mg PO Q6HR PRN #20 tab MDD 4 PRN Reason: Pain Patient Education Materials: Influenza (ED) Referrals: Nithya Ruggiero RN [Primary Care Provider] - Additional Instructions: Patient is instructed to follow up with Primary Care Physician. Patient is prescribed with Zofran, Ultram,and Tamiflu RETURN TO THE EMERGENCY DEPARTMENT FOR CHANGING OR WORSENING SYMPTOMS. The documentation as recorded by the David pettit Julia accurately reflects the service I personally performed and the decisions made by me, Nolberto Dominguez MD.
== END 2017-08-17 13:57 | disposition home or self-care (01) ==
LOC: ED 11:27
DX: J11.1 Influenza due to unidentified influenza virus with other respiratory manifestations (principal); Z88.3 Allergy status to other anti-infective agents; Z88.5 Allergy status to narcotic agent; Z88.8 Allergy status to other drugs, medicaments and biological substances
CPT/HCPCS: 71046; 87502; 96372; 99282; A9270-GY; J1885

== ENCOUNTER 2017-08-18 14:17 | Observation (INO) | payer MEDICARE, MEDICAID ==
[2017-08-18] MEDS ORDERED: NS 0.9% 1000 ML* 1,000 ML IV ONE ×2 (15:04→16:32)
--- NOTE | 2017-08-18 15:24 | RAD ---
HISTORY: Syncope COMPARISONS: None TECHNIQUE: Multiple contiguous axial CT scans were obtained of the head without intravenous contrast. FINDINGS: HEMORRHAGE/INFARCT: There is no hemorrhage or acute infarct. MASSES/SHIFT: There is no mass or shift. EXTRA-AXIAL SPACES: There are no extra-axial fluid collections. SULCI AND VENTRICLES: The sulci and ventricles are normal in size and position for the patient's stated age. CEREBRUM: There are no focal parenchymal abnormalities. BRAINSTEM: There are no focal parenchymal abnormalities. CEREBELLUM: There are no focal parenchymal abnormalities. VESSELS: The vessels are grossly normal. PARANASAL SINUSES: There is an air-fluid level within the sphenoid sinus. There is a small left mastoid effusion. ORBITS: The orbits are unremarkable. BONES AND SOFT TISSUE: No bone or soft tissue abnormalities are noted. OTHER: None IMPRESSION: 1. NO ACUTE INTRACRANIAL PATHOLOGY. 2. MILD SINUS MUCOSAL INFLAMMATORY DISEASE, WITH AN AIR-FLUID LEVEL IN THE SPHENOID SINUS. IN THE CORRECT CLINICAL SETTING, THIS MAY REPRESENT ACUTE SINUSITIS. 3. SMALL LEFT MASTOID EFFUSION
[2017-08-18 15:31] LABS: ABS Basophils 0 10^3/ul (0-0.2); ABS Eosinophils 0 10^3/ul (0-0.6); ABS Lymphocytes 0.5 10^3/ul (1.0-4.8); ABS Monocytes 0.5 10^3/ul (0-0.8); ABS Neutrophils 2.8 10^3/ul (1.5-7.7); ABS Nucleated RBC 0 10^3/ul; Eosinophil % 0.6 % (0-6); Hematocrit 41 % (35-47); Hemoglobin 13.6 g/dl (12.0-16.0); Lymphocyte % 13.9 % (25-47); Mean Corpuscular HGB Conc 33 g/dl (31-36); Mean Corpuscular Hemoglobin 29 pg (27-31); Mean Corpuscular Volume 88 fL (80-97); Mean Platelet Volume 10 um3 (7.4-10.4); Nucleated Red Blood Cells % 0.1; Platelet Count 167 10^3/ul (150-450); Red Blood Count 4.71 10^6/ul (4.0-5.4); Red Cell Distribution Width 14 % (10.5-15); White Blood Count 3.9 10^3/ul (3.5-10.8)
[2017-08-18 15:43] LABS: EGFR Non-African American 38.3 (>60)
[2017-08-18] MEDS ORDERED: Acetaminophen TAB* 325 MG PO PRN (17:00)
[2017-08-18] MEDS ORDERED: Albuterol 2.5 MG/3 ML NEB.SOL* (0.083%) INH PRN (17:02)
[2017-08-18] MEDS ORDERED: Cyclobenzaprine TAB* 10 MG PO PRN (17:02)
[2017-08-18] MEDS ORDERED: Ondansetron ODT TAB* 4 MG PO PRN (17:02)
[2017-08-18] MEDS ORDERED: traMADol TAB* 50 MG PO PRN (17:02)
[2017-08-18] MEDS ORDERED: Dextrose 50% Syringe 50 ML* 25 GM/50 ML SYRINGE IV PUSH PRN (17:15)
[2017-08-18] MEDS: Mometasone/Formoter 200/5 MDI INH SCH (20:01)
[2017-08-18] MEDS: Insulin LISPRO* 1 UNITS UNIT SUBCUT SCH (20:11)
[2017-08-18] MEDS: Famotidine TAB* 20 MG PO SCH (20:31)
[2017-08-18 20:43] LABS: Urine Appearance Clear; Urine Blood Negative (Negative); Urine Color Yellow; Urine Ketones Negative (Negative); Urine Protein Negative (Negative); Urine Specific Gravity 1.015 (1.010-1.030); Urine Urobilinogen Negative (Negative)
[2017-08-18] MEDS: NS 0.9% 1000 ML* 1,000 ML IV SCH (22:08)
[2017-08-18] MEDS: Heparin VIAL(*) 5000 UNITS/ML VIAL (FIVE THOUSAND) SUBCUT SCH (22:08)
[2017-08-18] MEDS: Oseltamivir CAP* 30 MG CAP PO SCH (22:08)
--- NOTE | 2017-08-18 23:45 | HP ---
CC: Nithya Blanco NP at [facility] * HISTORY AND PHYSICAL: DATE OF ADMISSION: 08/18/17 PRIMARY CARE PROVIDER: Nurse practitioner at [facility]. CHIEF COMPLAINT: Syncope. HISTORY OF PRESENT ILLNESS: Ms. Clark is a 57-year-old female who presented initially to the emergency room on 08/17/17 with complaints of diffuse body aches. At that time, the patient was found to be mildly tachycardic, but afebrile. She was diagnosed with influenza and started on Tamiflu. The patient has been taking Tamiflu as prescribed. Today, the patient states that she was not eating or drinking anything over the last couple days, got up go to the bathroom, was sitting on the toilet and passed out. The patient's granddaughter, who is 9 years old, found her on the floor. The patient states she is not eating or drinking because she has essentially no appetite. She has no nausea, however. The patient states that she has been feeling quite ill since this past Saturday. The patient has not tried sitting up in the emergency room as she aches too bad. The patient was felt to be quite dehydrated and therefore, the hospitalist service was asked to admit the patient for hydration overnight. PAST MEDICAL HISTORY: 1. Asthma/COPD. 2. Degenerative disk disease. 3. GERD. 4. Type 2 diabetes. 5. Hypertension. 6. Hyperlipidemia. 7. Osteoarthritis. PAST SURGICAL HISTORY: 1. Left ear surgery. 2. Left ulnar nerve release. 3. Tubal ligation. MEDICATIONS: 1. Tramadol 50 mg p.o. q.6 hours p.r.n. pain. 2. Incruse Ellipta 1 puff inhaled daily. 3. Ranitidine 150 mg p.o. q.h.s. 4. Tamiflu 75 mg p.o. b.i.d. 5. Zofran ODT 4 mg p.o. q.6 hours p.r.n. nausea. 6. Singulair 10 mg p.o. daily. 7. Lovastatin 20 mg p.o. daily. 8. Loratadine 10 mg p.o. daily. 9. Ibuprofen 800 mg p.o. b.i.d. p.r.n. pain. 10. Advair 500/50 one puff inhaled twice daily. 11. Fenofibrate 160 mg p.o. daily. 12. EpiPen injected intramuscularly as needed for allergic reaction. 13. Cyclobenzaprine 10 mg p.o. t.i.d. p.r.n. spasm. 14. Calcium plus D 500/125 one tab p.o. daily. 15. Albuterol 2 puffs inhaled q.4 hours p.r.n. shortness of breath. 16. Albuterol neb 1 neb inhaled q.12 hours p.r.n. shortness of breath. ALLERGIES: AZITHROMYCIN, MORPHINE, ADHESIVE TAPE, AUGMENTIN, DILAUDID, MOXIFLOXACIN, NUCYNTA, TOLECTIN, BEXTRA. FAMILY HISTORY: Mom at the age of 79 of CVA. Dad's history is unknown. SOCIAL HISTORY: The patient is a lifelong nonsmoker. She does not drink alcohol. 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 She has 4 children. She indicates that her youngest daughter, Amada, and her ex-, Bruce, would be her healthcare proxies. REVIEW OF SYSTEMS: The patient admits to fevers, anorexia, chronic chest pain, cough, shortness of breath, and vomiting once on the morning of admission as well as generalized weakness and achiness all over. Otherwise, review of systems is negative and as per HPI. PHYSICAL EXAMINATION GENERAL: The patient is a well-developed, middle aged female, lying in the stretcher, appearing to be feeling unwell, but in no acute distress. VITAL SIGNS: Blood pressure 116/71, pulse 100, respirations 23, temp 93% on room air. HEENT: Pupils are equal. They are round. Extraocular muscles are intact. Oropharynx is clear. Oral mucosa is moist. There is no submandibular, cervical , or supraclavicular adenopathy. Thyroid is not enlarged. No thyroid nodules are noted. PULMONARY: Lungs are clear to auscultation bilaterally. CARDIAC: Normal S1 and S2. Heart rate is mildly tachycardic. I did not appreciate any murmurs. There is no lower extremity edema. ABDOMEN: Bowel sounds are present. Abdomen is soft, nontender, nondistended. MUSCULOSKELETAL: There is no cyanosis or clubbing of the digits. There is full active range of motion of all 4 extremities. SKIN: Warm and dry. There are no rashes. NEURO: Cranial nerves II through XII are grossly intact. Sensation is intact to light touch throughout. Strength is 5/5 and symmetric in upper and lower extremities bilaterally. PSYCH: The patient is alert. She is oriented to x3. Affect appears appropriate. LABORATORY DATA/DIAGNOSTIC STUDIES: WBC 3.9, hemoglobin 13.6, hematocrit 41, platelets 167. Sodium 138, potassium 4.2, chloride 105, CO2 27, BUN 18, creatinine 1.42, glucose 107, calcium 8.7, magnesium 2.3. Bilirubin 0.4, AST 30 , ALT 24, alk phos 41, CPK 28, troponin 0, BNP 23, albumin 3.8, TSH 1.1, alcohol less than 10. eKG reveals sinus tachycardia with flat T waves in the lateral leads, but no acute ST-T wave abnormalities. Chest x-ray, no active cardiopulmonary disease. CT brain, no acute intracranial pathology, mild sinus mucosal inflammatory disease with an air fluid level in the sphenoid sinus and a small left mastoid effusion noted. ASSESSMENT AND PLAN: Ms. Clark is a 57-year-old female who was diagnosed with influenza on 08/17/17 who now presents to the emergency room after having a syncopal episode while sitting on the toilet trying to urinate on the day of admission. 1. Syncope. I suspect the patient's syncope is truly on the basis of volume depletion. She reports not eating or drinking well since the onset of her symptoms this past Saturday. The patient's creatinine is elevated above her baseline by four-tenths of a point. She clearly looks unwell. She will be monitored on telemetry, but I will not pursue any further evaluation as again I believe the source of her syncope is secondary to dehydration. 2. Influenza. The patient will continue on her Tamiflu. This was started yesterday afternoon. The patient will complete 10 doses total. As she is likely volume deplete as evidenced by her elevated creatinine and history of poor oral intake, she has already received 2 L of fluid in the emergency room. She will continue on normal saline at 125 mL per hour overnight. I suspect the patient will be able to be discharged to home tomorrow after getting a boost from the IV fluids overnight. 3. Type 2 diabetes. The patient's blood sugar is only mildly elevated at this time. She does not appear to be on any therapy for her type 2 diabetes. She will have glucoses a.c., h.s. and be placed on lispro sliding scale. 4. Asthma/chronic obstructive pulmonary disease. At this point, the patient does not have any wheezing on exam. We will continue p.r.n. albuterol nebulizers, but changed to q.4 hours. She will continue on her inhaled steroid. If she develops any wheezing whatsoever, we can consider adding systemic steroids. 5. Gastroesophageal reflux disease. We will continue her H2 esteban. 6. DVT prophylaxis. According to the Adult Thrombosis Prophylaxis Risk Factor Assessment Guide, the patient has a total risk factor score of 3 making her high risk. She will be placed on heparin 5000 units subcutaneous q.8 hours. 7. Code status is full and again, the patient indicates that her daughter, Amada , and her ex-, Bruce, would be her healthcare proxies. TIME SPENT: 65 minutes were spent admitting this patient. [id number]/[facility] #: [id number] MARISSA
[2017-08-19] MEDS: NS 0.9% 1000 ML* 1,000 ML IV SCH ×2 (05:19→14:51)
[2017-08-19] MEDS: Heparin VIAL(*) 5000 UNITS/ML VIAL (FIVE THOUSAND) SUBCUT SCH ×2 (05:20→14:51)
[2017-08-19 05:47] LABS: EGFR Non-African American 54.2 (>60)
[2017-08-19] MEDS: Insulin LISPRO* 1 UNITS UNIT SUBCUT SCH ×3 (08:06→17:07)
[2017-08-19] MEDS: Oseltamivir CAP* 30 MG CAP PO SCH (08:33)
[2017-08-19] MEDS: Mometasone/Formoter 200/5 MDI INH SCH (08:46)
[2017-08-19] MEDS ORDERED: Montelukast Sodium TAB* 10 MG PO SCH (09:00)
--- NOTE | 2017-08-19 10:22 | PN ---
Subjective Date of Service: 08/19/17 Interval History: Pt is feeling slightly better today. She states she has been trying to drink. She has not been up and walking. She has been coughing. Objective Active Medications: Acetaminophen (Tylenol Tab*) 650 mg PO Q4H PRN PRN Reason: PAIN Last Admin: 08/19/17 03:27 Dose: 650 mg Albuterol (Ventolin 2.5 Mg/3 Ml Neb.Ariadna*) 2.5 mg INH Q4H PRN PRN Reason: SOB/WHEEZING Cyclobenzaprine HCl (Flexeril Tab*) 10 mg PO TID PRN PRN Reason: PAIN Dextrose (D50w Syringe 50 Ml*) 12.5 gm IV PUSH .FOR FS < 60 - SS PRN PRN Reason: FS < 60 Famotidine (Pepcid Tab*) 20 mg PO QPM [facility] PRN Reason: Protocol Last Admin: 08/18/17 20:31 Dose: 20 mg Heparin Sodium (Porcine) (Heparin Vial(*)) 5,000 units SUBCUT Q8HR [facility] Last Admin: 08/19/17 05:20 Dose: 5,000 units Sodium Chloride (Ns 0.9% 1000 Ml*) 1,000 mls @ 125 mls/hr IV PER RATE [facility] Last Admin: 08/19/17 05:19 Dose: 125 mls/hr Insulin Human Lispro (Humalog*) 0 units SUBCUT ACHS [facility] PRN Reason: Protocol Last Admin: 08/19/17 08:06 Dose: Not Given Mometasone Furoate/Formoterol Fumar (Dulera 200/5 Mdi*) 2 puff INH BID [facility] Last Admin: 08/19/17 08:46 Dose: 2 puff Montelukast Sodium (Singulair Tab*) 10 mg PO QAM [facility] Last Admin: 08/19/17 08:33 Dose: 10 mg Ondansetron HCl (Zofran Odt Tab*) 4 mg PO Q6H PRN PRN Reason: NAUSEA/VOMITING Oseltamivir Phosphate (Tamiflu Cap*) 30 mg PO BID [facility] Stop: 08/19/17 20:59 Last Admin: 08/19/17 08:33 Dose: 30 mg Oseltamivir Phosphate (Tamiflu Cap*) 75 mg PO BID [facility] Stop: 08/22/17 09:01 Tramadol HCl (Ultram*) 50 mg PO Q6HR PRN PRN Reason: PAIN Last Admin: 08/19/17 09:59 Dose: 50 mg Vital Signs - 8 hr 08/19/17 08/19/17 08/19/17 03:56 07:52 08:00 Temperature 99.4 F 98.6 F Pulse Rate 69 57 Respiratory 20 16 16 Rate Blood Pressure 118/66 130/63 (mmHg) O2 Sat by Pulse 100 99 Oximetry 08/19/17 09:59 Temperature Pulse Rate Respiratory 18 Rate Blood Pressure (mmHg) O2 Sat by Pulse Oximetry Oxygen Devices in Use Now: Nasal Cannula Appearance: Middle aged female lying in bed, NAD Eyes: No Scleral Icterus Ears/Nose/Mouth/Throat: Mucous Membranes Moist Respiratory: Symmetrical Chest Expansion and Respiratory Effort, Clear to Auscultation - mildly diminished breath sounds in all lung cronin but pt does not take full deep breath Cardiovascular: NL Sounds; No Murmurs; No JVD, RRR, No Edema Abdominal: NL Sounds; No Tenderness; No Distention Extremities: No Clubbing, Cyanosis Skin: No Rash or Ulcers, No Nodules or Sclerosis Neurological: Alert and Oriented x 3 Result Diagrams: 08/18/17 15:15 08/19/17 04:52 Assess/Plan/Problems-Billing Ms Clark is a 57 yo F who has a h/o asthma, type II DM, HTN, HLD who presented to the ER with c/o syncope. - Patient Problems (1) Syncope Current Visit: Yes Status: Acute Code(s): R55 - SYNCOPE AND COLLAPSE SNOMED Code(s): 181298794 Comment: Likely secondary to dehydration. No significant alarms on tele. No further work up needed at this time. (2) Influenza Current Visit: Yes Status: Acute Code(s): J11.1 - FLU DUE TO UNIDENTIFIED INFLUENZA VIRUS W OTH RESP MANIFEST SNOMED Code(s): 2023775 Comment: Continue tamiflu to complete 10 doses. (3) Asthma Current Visit: Yes Status: Chronic Code(s): J45.909 - UNSPECIFIED ASTHMA, UNCOMPLICATED SNOMED Code(s): 730824955 Comment: No wheezing on exam noted. Will be monitoring the patient through the day. Check O2 sat on RA at rest and with ambulation. Continue home inhaler regimen. (4) HTN (hypertension) Current Visit: Yes Status: Chronic Code(s): I10 - ESSENTIAL (PRIMARY) HYPERTENSION SNOMED Code(s): 94751315 Comment: BP is under good control. She is not on any medications. (5) HLD (hyperlipidemia) Current Visit: Yes Status: Chronic Code(s): E78.5 - HYPERLIPIDEMIA, UNSPECIFIED SNOMED Code(s): 81048639 Comment: Resume statin on d/c. (6) DVT prophylaxis Current Visit: Yes Status: Acute Onset Date: 10/31/14 Code(s): SUW8250 - SNOMED Code(s): 248382020 Comment: SQ heparin (7) Full code status Current Visit: Yes Status: Acute Onset Date: 10/31/14 Code(s): Z78.9 - OTHER SPECIFIED HEALTH STATUS SNOMED Code(s): 404320262
[2017-08-19 16:21] VITALS: BP 143/82
--- NOTE | 2017-08-19 16:23 | ED ---
Misha Davis Nikita, scribed for Donald Rosales MD on 08/18/17 at 1617 . Syncope/Near Syncope - HPI Summary HPI Summary: This patient is a 57 year old F presenting to ED with a chief complaint of LOC since this morning. Pt was on the toilet at onset. Pt's says she has not been eating or drinking since yesterday when she was diagnosed with the flu. Symptoms aggravated and alleviated by nothing. Patient reports chest pain, fever (this morning, resolved now). - History Of Current Complaint Chief Complaint: EDSyncope Time Seen by Provider: 08/18/17 14:58 Hx Obtained From: Patient Onset/Duration: Sudden Onset Context: Loss Of Consciousness Aggravating Factor(s): Nothing Alleviating Factor(s): Nothing Associated Signs And Symptoms: Other - Patient reports chest pain, flu since yesterday, fever (this morning, resolved now). - Allergies/Home Medications Allergies/Adverse Reactions: Allergies Allergy/AdvReac Type Severity Reaction Status Date / Time Azithromycin Allergy Intermediate Rash And Verified 07/29/17 13:13 Itching Morphine Allergy Intermediate Difficulty Verified 07/29/17 13:13 Breathing Adhesive Tape Allergy Mild Rash Verified 07/29/17 13:13 Amoxicillin [From Augmentin] Allergy Unknown Rash Verified 07/29/17 13:13 Clavulanic Acid Allergy Unknown Rash Verified 07/29/17 13:13 [From Augmentin] Hydromorphone [From Dilaudid] Allergy Unknown Rash Verified 07/29/17 13:13 Moxifloxacin [From Avelox] Allergy Unknown Rash Verified 07/29/17 13:13 Tapentadol [From Nucynta] Allergy Unknown Rash Verified 07/29/17 13:13 Tolmetin [From Tolectin] Allergy Unknown Rash Verified 07/29/17 13:13 Valdecoxib [From Bextra] AdvReac Unknown Rash Verified 07/29/17 13:13 PERFUMES Allergy Severe DYSPNEA Uncoded 07/29/17 13:13 PMH/Surg Hx/FS Hx/Imm Hx Endocrine/Hematology History: Reports: Hx Diabetes - TYPE II-NO MEDICATION FOR Denies: Hx Anticoagulant Therapy, Hx Blood Disorders, Hx Blood Transfusions, Hx Bone Marrow Disease, Hx Systemic Lupus Erythematosus, Hx Sickle Cell Disease , Hx Thyroid Disease, Hx Anemia, Hx Unexplained Bleeding Cardiovascular History: Reports: Hx Hypercholesterolemia, Hx Hypotension, Hx Hypertension - CURRENTLY MONITORING, Other Cardiovascular Problems/Disorders - CHEST PRESSURE- STATES IS RELATED TO COPD- STATES NEGATIVE WORKUP Denies: Hx Aneurysm, Hx Angina, Hx Angioplasty, Hx Auto Implanted Cardiovert Defib, Hx Cardiac Arrest, Hx Cardiomegaly, Hx Congenital Heart Disease, Hx Congestive Heart Failure, Hx Coronary Artery Disease, Hx Deep Vein Thrombosis, Hx Pacemaker/ICD, Hx Peripheral Vascular Disease, Hx Rheumatic Fever, Hx Syncope , Hx Valvular Heart Disease Respiratory History: Reports: Hx Asthma, Hx Chronic Bronchitis, Hx Chronic Obstructive Pulmonary Disease (COPD), Hx Pneumonia, Hx Seasonal Allergies, Other Respiratory Problems/Disorders - PNA Denies: Hx Cystic Fibrosis, Hx Lung Cancer, Hx Pleural Effusion, Hx Pulmonary Edema, Hx Pulmonary Embolism, Hx Sleep Apnea GI History: Reports: Hx Diverticulosis, Hx Gastroesophageal Reflux Disease - ON MEDICATION FOR Denies: Hx Ulcer History: Denies: Hx Acute Renal Failure, Hx Benign Prostatic Hyperplasia, Hx Chronic Renal Failure, Hx Dialysis, Hx Kidney Infection, Hx Kidney Stones, Hx Renal Disease, Other Problems/Disorders Musculoskeletal History: Reports: Hx Arthritis, Hx Back Problems, Hx Bursitis, Hx Osteoporosis, Hx Scoliosis, Hx Tendonitis, Other Musculoskeletal History - DDD Denies: Hx Rheumatoid Arthritis, Hx Congenital Bone Abnormalities, Hx Fibromyalgia, Hx Gout, Hx Orthopedic Injury Sensory History: Reports: Hx Contacts or Glasses - GLASSES, Hx Hearing Aid - LEFT EAR, Hx Hearing Problem Denies: Hx Cataracts, Hx Eye Injury, Hx Eye Prosthesis, Hx Glaucoma, Hx Macular Degeneration, Hx Vision Problem, Hx Deafness, Other Sensory Impairments Opthamlomology History: Reports: Hx Contacts or Glasses - GLASSES Denies: Hx Cataracts, Hx Eye Injury, Hx Eye Prosthesis, Hx Glaucoma, Hx Macular Degeneration, Hx Vision Problem, Other Sensory Impairments Neurological History: Reports: Hx Headaches - reportedly d/t degenerative disc disease Denies: Hx Dementia Psychiatric History: Denies: Hx Anxiety, Hx Attention Deficit Hyperactivity Disorder, Hx Eating Disorder, Hx Depression, Hx Panic Disorder, Hx Post Traumatic Stress Disorder, Hx Inpatient Treatment, Hx Community Mental Health Tx, Hx Schizophrenia, Hx Bipolar Disorder, Hx Suicide Attempt, Hx Substance Abuse, Other Psychiatric Issues/Disorders - Surgical History Surgery Procedure, Year, and Place: TUBAL LIGATION in 1988. hole in ear closed (no implant). tonsils as a child Hx Anesthesia Reactions: No - Immunization History Date of Tetanus Vaccine: Unk Date of Influenza Vaccine: 06/14 Infectious Disease History: No Infectious Disease History: Reports: Hx of Known/Suspected MRSA, Hx Shingles - [id number], History Other Infectious Disease - influenza A Denies: Hx Clostridium Difficile, Hx Hepatitis, Hx Human Immunodeficiency Virus (HIV), Hx Tuberculosis, Traveled Outside the [place] in Last 30 Days - Family History Known Family History: Positive: Cardiac Disease, Hypertension, Diabetes - Social History Alcohol Use: None Substance Use Type: Reports: None Hx Tobacco Use: No Smoking Status (MU): Never Smoked Tobacco Have You Smoked in the Last Year: No Review of Systems Positive: Other - flu like symptoms. Negative: Fever Positive: Chest Pain All Other Systems Reviewed And Are Negative: Yes Physical Exam - Summary Physical Exam Summary: VITAL SIGNS: Reviewed. GENERAL: ~Patient is a weak, ill-looking female who is lying in the stretcher. Pallor. HEAD AND FACE: No signs of trauma. ~No ecchymosis, hematomas or skull depressions. No sinus tenderness. EYES: PERRLA, EOMI x 2, No injected conjunctiva, no nystagmus. EARS: Hearing grossly intact. Ear canals and tympanic membranes are within normal limits. MOUTH: Oropharynx within normal limits. NECK: Supple, trachea is midline, no adenopathy, no JVD, no carotid bruit, no c- spine tenderness, neck with full ROM. CHEST: Symmetric, no tenderness at palpation LUNGS: Crackles in both bases of the lungs. CVS: Regular rate and rhythm, S1 and S2 present, no murmurs or gallops appreciated. ABDOMEN: Soft, non-tender. No signs of distention. No rebound no guarding, and no masses palpated. Bowel sounds are normal. EXTREMITIES: FROM in all major joints, no edema, no cyanosis or clubbing. NEURO: Alert and oriented x 3. No acute neurological deficits. Speech is normal and follows commands. SKIN: Dry and warm Triage Information Reviewed: Yes Vital Signs On Initial Exam: Initial Vitals Temp Pulse Resp BP Pulse Ox 98.3 F 107 16 120/60 97 08/18/17 14:28 08/18/17 14:28 08/18/17 14:28 08/18/17 14:28 08/18/17 14:28 Vital Signs Reviewed: Yes Diagnostics - Vital Signs Vital Signs Temp Pulse Resp BP Pulse Ox 08/18/17 15:28 100 116/71 08/18/17 15:27 100 110/68 08/18/17 15:03 93 08/18/17 15:00 103 23 104/69 92 08/18/17 14:56 105 19 92 08/18/17 14:54 113/72 08/18/17 14:28 98.3 F 107 16 120/60 97 - Laboratory Lab Results: Lab Results 08/18/17 Range/Units 15:15 WBC 3.9 (3.5-10.8) 10^3/ul RBC 4.71 (4.0-5.4) 10^6/ul Hgb 13.6 (12.0-16.0) g/dl Hct 41 (35-47) % MCV 88 (80-97) fL MCH 29 (27-31) pg MCHC 33 (31-36) g/dl RDW 14 (10.5-15) % Plt Count 167 (150-450) 10^3/ul MPV 10 (7.4-10.4) um3 Neut % (Auto) 71.7 (38-83) % Lymph % (Auto) 13.9 L (25-47) % Childress % (Auto) 13.1 H (1-9) % Eos % (Auto) 0.6 (0-6) % Baso % (Auto) 0.7 (0-2) % Absolute Neuts (auto) 2.8 (1.5-7.7) 10^3/ul Absolute Lymphs (auto) 0.5 L (1.0-4.8) 10^3/ul Absolute Monos (auto) 0.5 (0-0.8) 10^3/ul Absolute Eos (auto) 0 (0-0.6) 10^3/ul Absolute Basos (auto) 0 (0-0.2) 10^3/ul Absolute Nucleated RBC 0 10^3/ul Nucleated RBC % 0.1 Result Diagrams: 08/18/17 15:15 08/19/17 04:52 Lab Statement: Any lab studies that have been ordered have been reviewed, and results considered in the medical decision making process. - EKG 1434 Cardiac Rate: NL EKG Rhythm: Sinus Tachycardia - 107 BPM EKG Interpretation: No ST elevation Course/Dx Assessment/Plan: This patient is a 57 year old F presenting to ED with a chief complaint of LOC since this morning. Test results are without significant abnormalities except increased creatinine 1.42 which is significant with renal insufficiency. Pt is hydrated but still feeling weak and dizzy. Consulted with Dr. Nolasco who will accept the pt for admission. The pt is hemodynamically stable, alert and oriented x3. - Diagnoses Differential Diagnosis/HQI/PQRI: Positive: Dysrhythmia, Seizure, Transient Ischemic Attack, Vasovagal Episode, Other - dizziness and flu, URI, Strep pharyngitis Provider Diagnoses: Dizziness, Flu Discharge - Discharge Plan Condition: Stable Disposition: HOME The documentation as recorded by the Misha pettit Nikita accurately reflects the service I personally performed and the decisions made by , Donald Rosales MD.
[2017-08-19] MEDS: Famotidine TAB* 20 MG PO SCH (17:23)
[2017-08-19] MEDS ORDERED: Oseltamivir CAP* 75 MG PO SCH (21:00)
--- NOTE | 2017-08-20 09:59 | DS ---
CC: [facility] DATE OF ADMISSION: 08/18/2017. DATE OF DISCHARGE: 08/19/2017. PRIMARY CARE PHYSICIAN: Formerly Nithya Blanco NP at [facility]. PRINCIPAL DIAGNOSES: 1. Syncope secondary to dehydration. 2. Dehydration secondary to influenza. 3. Possible left otitis media. SECONDARY DIAGNOSES: 1. Type 2 diabetes. 2. Asthma. 3. GERD. 4. Hypertension. 5. Hyperlipidemia. DISCHARGE MEDICATIONS: 1. Tramadol 25 mg p.o. q.6 hours prn pain. 2. Incruse Ellipta one puff inhaled daily. 3. Ranitidine 150 mg p.o. at bedtime. 4. Tamiflu 75 mg p.o. b.i.d. to complete 10 doses. 5. Zofran ODT 4 mg p.o. q.6 hours prn nausea. 6. Singulair 10 mg p.o. daily. 7. Lovastatin 20 mg p.o. daily. 8. Loratadine 10 mg p.o. daily. 9. Ibuprofen 800 mg p.o. b.i.d. prn pain. 10. Advair 500-50 one puff inhaled twice daily. 11. Fenofibrate 160 mg p.o. daily. 12. EpiPen injected intramuscularly as needed for allergic reaction. 13. Cyclobenzaprine 10 mg p.o. t.i.d. prn spasm. 14. Calcium plus D 500/125 one tab p.o. daily. 15. Albuterol two puffs inhaled q.4 hours prn shortness of breath. 16. Albuterol 1 neb inhaled q.12 hours prn shortness of breath. 17. Cefdinir 300 mg p.o. q.12 hours times 14 doses. HOSPITAL COURSE: Ms. Clark is a 57-year-old female who has a history of asthma and COPD who was diagn osed with influenza on 08/17/2017 and re-presented to the emergency room on 08/18/2017 with complaint s of syncope. The patient states that she has been feeling very poor since being diagnosed with the flu. In fact, her symptoms began on the Saturday prior to her diagnosis. The patient had not been eating or drinking well. The patient was sitting on the toilet when she passed out. The patient was ultimately admitted for a syncopal episode that was felt to be secondary to dehydration. The patien t did have an elevated creatinine that does not meet JUWAN criteria. She received several liters of IV fluid with good response in her creatinine. This is now back down to her baseline. Additionally, t he patient is symptomatically feeling quite a bit better. Her appetite is still poor, though she und erstands she needs to push fluids at home. The patient states at this point she feels that she can m anage at home. On the day of discharge, the patient also complained of left ear pain. There is what appears to be c obblestoning and erythema of the left tympanic membrane. She states that she has had recurrent ear i nfections. This is evidenced by scarring of the tympanic membranes bilaterally. The patient will be started on Cefdinir 300 mg p.o. twice daily for seven days. FOLLOW-UP CONCERNS: The patient is being discharged home, 08/19/2017. The patient is to follow-up at the [facility] in the next four to seven days. ACTIVITY LEVEL: As tolerated. DIET: Regular. CONDITION ON DISCHARGE: Stable. Twenty minutes were spent discharging this patient. [id number]/[facility] #: [id number]
== END 2017-08-19 19:04 | disposition home or self-care (01) ==
LOC: ED 14:17 → MEDTELE 17:00
PROVIDERS: ADMIT Hospitalist; ATTEND Hospitalist
DX: E86.0 Dehydration (principal); R55 Syncope and collapse; J11.1 Influenza due to unidentified influenza virus with other respiratory manifestations; E11.9 Type 2 diabetes mellitus without complications; J45.909 Unspecified asthma, uncomplicated; K21.9 Gastro-esophageal reflux disease without esophagitis; I10 Essential (primary) hypertension; E78.5 Hyperlipidemia, unspecified; Z79.899 Other long term (current) drug therapy; J44.9 Chronic obstructive pulmonary disease, unspecified; Z88.8 Allergy status to other drugs, medicaments and biological substances; Z88.5 Allergy status to narcotic agent; R00.0 Tachycardia, unspecified
CPT/HCPCS: 36415; 70450; 80048; 80053; 80320; 81003; 81015; 82550; 83735; 83880; 84443; 84484; 85025; 87086; 93005; 94640; 94760; 96360; 96361; 96372; 99284; A9270-GY; G0378; G0480; J1644

== ENCOUNTER 2017-08-28 11:33 | Emergency (ER) | payer MEDICAID, MEDICARE ==
--- NOTE | 2017-08-28 12:23 | RAD ---
HISTORY: Headache, trauma COMPARISONS: August 18, 2017 TECHNIQUE: Multiple contiguous axial CT scans were obtained of the head without intravenous contrast. FINDINGS: HEMORRHAGE/INFARCT: There is no hemorrhage or acute infarct. MASSES/SHIFT: There is no mass or shift. EXTRA-AXIAL SPACES: There are no extra-axial fluid collections. SULCI AND VENTRICLES: The sulci and ventricles are normal in size and position for the patient's stated age. CEREBRUM: There are no focal parenchymal abnormalities. BRAINSTEM: There are no focal parenchymal abnormalities. CEREBELLUM: There are no focal parenchymal abnormalities. VESSELS: The vessels are grossly normal. PARANASAL SINUSES: Again noted is an air-fluid level within the sphenoid sinus. Again noted is a left mastoid effusion. ORBITS: The orbits are unremarkable. BONES AND SOFT TISSUE: No bone or soft tissue abnormalities are noted. OTHER: None IMPRESSION: 1. NO ACUTE INTRACRANIAL PATHOLOGY. 2. AGAIN NOTED IS A LEFT MASTOID EFFUSION WITH AN AIR-FLUID LEVEL IN THE SPHENOID SINUS. IN THE CORRECT CLINICAL SETTING, THIS MAY REPRESENT ACUTE SINUSITIS
--- NOTE | 2017-08-28 12:27 | RAD ---
HISTORY: Neck pain, trauma COMPARISONS: February 18, 2015 TECHNIQUE: Multiple contiguous axial CT scans were obtained of the cervical spine without intravenous contrast, with coronal and sagittal multiplanar reformations. FINDINGS: BRAIN: The visualized brain is unremarkable CENTRAL CANAL: Evaluation of the central canal is limited on CT technique; however, there is no obvious canalicular mass or epidural hemorrhage. ALIGNMENT: The alignment is normal, without subluxation or dislocation. VERTEBRAL BODIES: There is no displaced fracture. There is anterolateral marginal osteophyte formation most pronounced at C5-C6 and C6-C7. JOINTS: There is uncovertebral and facet hypertrophy most pronounced at C5-C6. MUSCULATURE: Unremarkable INTERVERTEBRAL DISCS: There is diffuse loss of intervertebral disc height. AXIAL IMAGES: On axial images, there is severe left and moderate right neural foraminal narrowing at C5-C6. There is no osseous central canal stenosis. SOFT TISSUES: The visualized soft tissues of the neck are unremarkable. The prevertebral fat stripe is preserved. OTHER: There is left mastoid effusion IMPRESSION: 1. DEGENERATIVE DISC DISEASE AND OSTEOARTHRITIS, MOST PRONOUNCED AT C5-C6. 2. NO ACUTE OSSEOUS INJURY TO THE CERVICAL SPINE. 3. LEFT MASTOID EFFUSION
[2017-08-28 12:49] LABS: Hematocrit 47 % (35-47); Hemoglobin 15.7 g/dl (12.0-16.0); Mean Corpuscular HGB Conc 34 g/dl (31-36); Mean Corpuscular Hemoglobin 29 pg (27-31); Mean Corpuscular Volume 87 fL (80-97); Mean Platelet Volume 10 um3 (7.4-10.4); Platelet Count 191 10^3/ul (150-450); Red Blood Count 5.38 10^6/ul (4.0-5.4); Red Cell Distribution Width 14 % (10.5-15); White Blood Count 6.8 10^3/ul (3.5-10.8)
[2017-08-28 13:01] LABS: EGFR Non-African American 60.9 (>60)
[2017-08-28 13:11] LABS: Urine Appearance Clear; Urine Blood Negative (Negative); Urine Color Yellow; Urine Ketones Negative (Negative); Urine Protein 1+(30 mg/dL) (Negative); Urine Specific Gravity 1.006 (1.010-1.030); Urine Urobilinogen Negative (Negative)
[2017-08-28 13:32] LABS: ABS Basophils 0.1 10^3/ul (0-0.2); ABS Eosinophils 0.2 10^3/ul (0-0.6); ABS Lymphocytes 1.9 10^3/ul (1.0-4.8); ABS Monocytes 0.5 10^3/ul (0-0.8); ABS Neutrophils 4.1 10^3/ul (1.5-7.7); ABS Nucleated RBC 0 10^3/ul; Eosinophil % 2.4 % (0-6); Lymphocyte % 28.4 % (25-47); Nucleated Red Blood Cells % 0.1
[2017-08-28] MEDS ORDERED: Iodixanol* (CONTRAST) 320 MG/ML 100 ML SDV IV ONE (13:59)
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
--- NOTE | 2017-08-28 14:34 | RAD ---
HISTORY: Bilateral knee pain, trauma COMPARISONS: June 04, 2015 VIEWS: 5, views of both knees, frontal oblique views of both knees, axial views of both knees, lateral views of the left knee and of the right knee FINDINGS: Right: BONE DENSITY: Normal. BONES: There is no displaced fracture. JOINTS: There is no arthropathy. There is no suprapatellar joint effusion or lipohemarthrosis. ALIGNMENT: There is no dislocation. The alignment is anatomic. SOFT TISSUES: Unremarkable. Left: BONE DENSITY: Normal. BONES: There is no displaced fracture. JOINTS: There is no arthropathy. There is no suprapatellar joint effusion or lipohemarthrosis. ALIGNMENT: There is no dislocation. The alignment is anatomic. SOFT TISSUES: Unremarkable. OTHER FINDINGS: None. IMPRESSION: NO ACUTE OSSEOUS INJURY BILATERALLY. IF SYMPTOMS PERSIST, RECOMMEND REPEAT IMAGING.
[2017-08-28 15:52] VITALS: BP 146/89
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
== END 2017-08-28 15:45 | disposition home or self-care (01) ==
LOC: ED 11:33
DX: M54.2 Cervicalgia (principal); R51 Headache; R07.9 Chest pain, unspecified; Z86.39 Personal history of other endocrine, nutritional and metabolic disease; Z86.79 Personal history of other diseases of the circulatory system; M25.562 Pain in left knee; Z87.09 Personal history of other diseases of the respiratory system; M25.561 Pain in right knee; V89.2XXA Person injured in unspecified motor-vehicle accident, traffic, initial encounter; Y92.9 Unspecified place or not applicable; Z87.19 Personal history of other diseases of the digestive system
CPT/HCPCS: 36415; 70450; 71260; 72125; 80053; 80307; 80320; 81003; 81015; 82550; 84484; 85025; 93005; 99283; G0480; Q9967

== ENCOUNTER 2017-10-14 09:54 | Day surgery (SDC) | payer MEDICARE, MEDICAID ==
[~2017-10-14 09:54] MED LIST changes: -Bupivacaine 0.25% SDV* 30 ML ONE; -Famotidine IV* 10 MG/ML 2 ML (20 mg) IV ONE; -Famotidine IV* 10 MG/ML 2 ML (20 mg) ONE; -Metoclopramide TAB* 10 MG ONE; +Sodium Citrate/Citric Acid* 15 ML UDC PO ONE
[2017-10-14] MEDS ORDERED: ceFAZolin 2 GM (*##) 2 GM/100 ML BAG USE CEFA2SOL IVPB ONE (10:06)
[2017-10-14] MEDS ORDERED: Buffered Lidocaine 0.9% SYRIN* 5 ML/SYR SYRINGE ONE (10:06)
[2017-10-14] MEDS ORDERED: Sodium Citrate/Citric Acid* 15 ML UDC ONE (10:06)
[2017-10-14] MEDS ORDERED: Bupivacaine 0.25% SDV* 30 ML ONE (14:12)
[2017-10-14] MEDS ORDERED: Lidocaine 1% MPF wEPI 200,000* 30 ML SDV ONE (14:12)
[2017-10-14] MEDS ORDERED: Propofol* 10 MG/ML 20 ML BTL IV PUSH ONE (14:34)
[2017-10-14] MEDS ORDERED: fentaNYL* 50 MCG/ML 2 ML VIAL (100 MCG VIAL) ONE (14:36)
[2017-10-14] MEDS ORDERED: Lidocaine 2% PF * 5 ML VIAL ONE (14:48)
[2017-10-14] MEDS ORDERED: Dexamethasone IV* 4 MG/ML 1 ML (4 MG) ONE (14:49)
[2017-10-14] MEDS ORDERED: Naloxone* 0.4 MG/ML 1 ML VIAL IV PRN (16:00)
[2017-10-14] MEDS ORDERED: fentaNYL* 50 MCG/ML 2 ML VIAL (100 MCG VIAL) IV PRN (16:00)
[2017-10-14] MEDS ORDERED: Ondansetron INJ* 2 MG/ML VIAL IV PRN (16:00)
[2017-10-14] MEDS ORDERED: HYDROcodone/ACETAMIN 5-325 MG* 1 TAB ONE (16:08)
[2017-10-14 16:30] VITALS: BP 148/82
--- NOTE | 2017-10-15 14:21 | OP ---
DATE OF OPERATION: 10/14/17 - [facility] DATE OF : 62 SURGEON: Андрей Hadley MD. CONCESSION MANAGER: SHANICE Alfaro. An guest services assistant was needed for the entirety of the procedure to aid in positioning of the arm and retraction. ANESTHESIOLOGIST: Dr. Wang. ANESTHESIA: General. PRE-OP DIAGNOSIS: Left peripheral ulnar nerve decompression at the wrist and elbow. POST-OP DIAGNOSIS: Left peripheral ulnar nerve decompression at the wrist and elbow. OPERATIVE PROCEDURE: 1. Left ulnar nerve decompression at the wrist. 2. Left in situ cubital tunnel release. INDICATIONS: Tess has ulnar nerve symptoms. She has done very well with a release on the right. She came back desiring to have a release on the left as she has the same issues on that side. We had talked again about the risks and benefits. I told her there might be a need to transpose the nerve. She wanted to proceed with surgery. ESTIMATED BLOOD LOSS: 5 mL. COMPLICATIONS: None. FINDINGS: As expected. DESCRIPTION OF PROCEDURE: Tess was brought back to the operating room. The arm was prepped and draped in the usual fashion. A time-out was performed. The arm was exsanguinated with the Esmarch and the tourniquet was inflated to 250 mmHg. I made a longitudinal incision on the proximal palm, which was across the ulnar wrist, in a Tyrone-type fashion. The dissection was carried down and the fascia over the ulnar neurovascular bundle was released proximally. This was continued distally, releasing Guyon's canal throughout the entirety of its length toward the ulnar nerve branch, into the sensory nerves. There were some traversing vessels which were cauterized with the bipolar. I then released the motor branch deep by releasing the hypothenar fascia and the deep subfascial layer. Once the motor branch was completely decompressed, the wound was irrigated out. Skin was closed with 4-0 nylon suture. The arm was abducted and externally rotated and a curvilinear incision was made , centered over Gaviria's ligament. Dissection was carried down, the medial antebrachial cutaneous nerve was identified and protected. The decompression was begun just proximal to the Gaviria's ligament. An appendiceal retractor was placed and the nerve was decompressed past the arcade of [place] proximally. I then came distally and released the Gaviria's ligament. The superficial FCU fascia was split. The two heads of the FCU were divided. The subfascial layer was split. The motor branches to the two heads of the FCU were identified and protected. I performed a neurolysis about the nerve. I then flexed and extended the elbow. The nerve did not subluxate. There was a segment just under the Gaviria's ligament where it looked like the nerve had been compressed. Once the decompression was done, I irrigated out the wound. Hemostasis was obtained with the Bovie cautery. The subcutaneous tissue was reapproximated with 3-0 Vicryl and the skin was closed with 4-0 Monocryl and Steri-Strips. Both operative sites were infiltrated with 0.25% plain Marcaine. The wounds were dressed with Xeroform, 4 x 4s, and ABD at the elbow, sterile Webril, and Issac bandages. Tourniquet was deflated and she was taken to the recovery room in stable condition. [id number]/[facility] #: [id number] MARISSA
== END 2017-10-14 16:49 | disposition home or self-care (01) ==
LOC: OR 09:54
PROVIDERS: ATTEND Orthopaedic Surgery Hand Surgery
DX: G56.21 Lesion of ulnar nerve, right upper limb (principal); G56.22 Lesion of ulnar nerve, left upper limb; I10 Essential (primary) hypertension; J45.909 Unspecified asthma, uncomplicated; J44.9 Chronic obstructive pulmonary disease, unspecified; Z79.899 Other long term (current) drug therapy; Z88.1 Allergy status to other antibiotic agents; Z88.5 Allergy status to narcotic agent; Z91.09 Other allergy status, other than to drugs and biological substances
CPT/HCPCS: A9270-GY; J1100; J2001; J2704; J3010

== ENCOUNTER 2017-11-02 10:26 | Emergency (ER) | payer MEDICARE, MEDICAID ==
--- OUTSIDE RECORDS SUMMARY | 2017-11-02 10:33 | XMS REPORT ---
:1960 External Reference #:[id number] Author Organization [facility] Address [address] [address] Phone [phone] Care Team Providers Name Role Phone Nithya Blanco FNP Primary Care Physician Unavailable Payers Type Date Identification Numbers Payment Provider Subscriber Medicare Primary Effective: Policy Number: Medicare Tess Clark 2011 [id number] PayID: [id number] [address] [place] [address] [facility] Part B Policy Number: [id number] Medicaid Tess Clark PayID: [id number] [address] [place] [address] Problems Date Description Provider Status Onset: 01/15/2017 Asthma without status asthmaticus Temi Najera MD Active Onset: 01/15/2017 Allergic rhinitis Temi Najera MD Active Onset: 01/15/2017 Gastroesophageal reflux disease Temi Najera MD Active Onset: 01/15/2017 Other sleep disorders Temi Najera MD Active Onset: 09/04/2017 Lesion of ulnar nerve Андрей Hadley MD Active Family History Date Family Member(s) [...] Strength Qnty SIG Indications Ordering Provider Tramadol HCL 10/14 Active Tablets 50mg 30tab 1-2 tablets s by mouth MD Leonie every 6 hours as needed pain Bevespi 10/07 Active Aerosol 9-4.8mcg/ 17.7g 2 puffs J44.1 Tracie S. Aerosphere /2017 Act m inhalation Foster, twice N.P. daily. Albuterol Active Nebulizer (2.5mg/3M 100un 1 vial via Unknown Sulfate /0000 L) 0.083% its nebulizer 4 times daily as needed Calcium 500+D Active daily Unknown /0000 Epipen 2-Gulshan Active Solution 0.3mg/0.3 1unit use as Unknown /0000 Auto-Injec ML s directed t Ipratropium Active Solution 0.5-2.5(3 60uni 1 vial in Unknown [place]/Albutero /0000 )mg/3ML ts nebulizer l Sulfate three times a day as needed for asthma Lisinopril Active Tablets 5mg 30tab 1 by mouth Unknown /0000 s every day Lovastatin Active Tablets 20mg 90tab by mouth Unknown /0000 s every night at bedtime Montelukast Active Tablets 10mg 1 by mouth Unknown Sodium /0000 every day Ventolin HFA Active Aerosol 108(90Bas 1unit 2 puffs by Unknown /0000 e) s mouth four mcg/Act times a day as needed Advair Diskus Active Aerosol 500-50mcg inhale 1 Unknown /0000 /Dose dose by mouth twice a day Ranitidine 150 Active Tablets 150mg one by Unknown Maximum Strength /0000 mouth twice a day Furosemide Active Tablets 20mg take 1 Unknown /0000 tablet by mouth every morning if needed for edema Escitalopram Active Tablets 10mg take 1 Unknown Oxalate /0000 tablet by mouth once daily Vitamin D3 Active Capsules 17415Znbo Unknown /[address] 40mg take 1 Unknown Sodium /0000 tablet by mouth once daily Cyclobenzaprine Active Unknown HCL /0000 Tramadol 05/23 Hx Tablets 37.5-325m 30tab 1-2 tab by Андрей Patino/Davy g s mouth every MD Leonie etaminophen - 4-6 hours 09/04 as needed Tramadol HCL 05/23 Hx Tablets 50mg 30tab 1-2 tabs by Marcia s mouth every Baum, - 4-6 hours M.D. 09/04 as needed for pain Ranitidine HCL 01/15 Hx Tablets 150mg 30tab take one K21.9 Temi s tablet by MD Reinaldo - mouth at 02/06 bedtime /2016 Advair Diskus Hx Unknown /0000 - 01/14 Butrans Hx Patches 10mcg/HR 4unit topical Unknown /0000 Weekly s q7 - 01/17 Celebrex Hx Capsules 200mg 30cap 1 by mouth Unknown /0000 s every day - 01/14 Gabapentin 00 Hx Capsules 100mg 90cap 1 po qhs to Unknown /0000 s start and - december 01 increase tolerated to 2 po qhs then 1 po qam and 2 po hs, gradually up to 3 tid prn pain Gemfibrozil Hx Tablets 600mg 60tab 1 by mouth Unknown /0000 s twice a day - 01/17 Loratadine Hx Tablets 10mg 30tab 1 by mouth Unknown /0000 s every day - 01/14 Metformin HCL Hx Tablets 500mg 1 by mouth Unknown /0000 twice a day - 01/14 Medications Administered in Office Medication Date Status Form Strength Qnty SIG Indications Ordering Provider Depomedrol Administered Injection Marcelo 80MG Clark Gamboa M.D. Immunizations CPT Code Status Date Vaccine Lot # [id number] Given 05/07/2016 Influenza Virus 3Yrs & Over Vital Signs Date Vital Result Comment 10/25/2017 Height 61 inches 5'1" Weight 154.00 lb Heart Rate 93 /min Respiratory Rate 14 /min Body Temperature 97.5 F Pain Level 8 BMI (Body Mass Index) 29.1 kg/m2 10/07/2017 Height 61 inches 5'1" Weight 154.56 lb Heart Rate 88 /min BP Systolic Sitting 150 mmHg Rue regular cuff BP Diastolic Sitting 90 mmHg Rue regular cuff Respiratory Rate 16 /min O2 % BldC Oximetry 98 % BMI (Body Mass Index) 29.2 kg/m2 10/01/2017 Height 61 inches 5'1" Weight 153.00 lb Heart Rate 91 /min BP Systolic 130 mmHg BP Diastolic 82 mmHg Respiratory Rate 16 /min Body Temperature 98.1 F Pain Level 7 BMI (Body Mass Index) 28.9 kg/m2 09/04/2017 Height 61 inches 5'1" Weight 153.00 lb Heart Rate 71 /min Respiratory Rate 14 /min Body Temperature 98.9 F Pain Level 5 BMI (Body Mass Index) 28.9 kg/m2 08/06/2017 Height 61 inches 5'1" Weight 153.00 lb Heart Rate 82 /min Respiratory Rate 20 /min Body Temperature 98.2 F Pain Level 10 BMI (Body Mass Index) 28.9 kg/m2 07/18/2017 Height 61 inches 5'1" Weight 153.00 [...] Result H/L Range Note Laboratory test finding 10/14/2017 Point of Care 118 mg/dL High 70-100 1 Glucose Laboratory test finding 05/23/2017 Point of Care 109 mg/dL High 70-100 2 Glucose Laboratory test finding 05/23/2017 Point of Care 111 mg/dL High 70-100 3 Glucose CBC Auto Diff 03/17/2014 White Blood [...] Ratio 17.5 8-20 Calcium 9.0 mg/dL 8.6-10.3 4 Total Protein 6.8 g/dL 6.4-8.9 Albumin 4.3 g/dL 3.2-5.2 Globulin 2.5 g/dL 2-4 Albumin/Globulin Ratio 1.7 1-3 Total Bilirubin 0.50 mg/dL 0.2-1.0 Alkaline Phosphatase 88 U/L 34-104 Alt 13 U/L 7-52 Ast 16 U/L 13-39 Egfr Non- 60.3 >60 Egfr 77.6 >60 5 1 Ceramics Machine Operator: [id number] Ceramics Machine Operator: [id number] Ceramics Machine Operator: [id number] 4 Specimen Lipemic. Result may not be valid. 5 Because ethnic data is not always readily [...] dialysis) Procedures Date CPT Code Description Status 10/14/2017 84017 Neuroplasty/Transposition, Ulnar Nerve At Wrist Completed 10/14/2017 57759 Neuroplasty &/Or Transposition; Ulnar Nerve At Completed Elbow 10/14/2017 60102 Neuroplasty &/Or Transposition; Ulnar Nerve At Completed Elbow 05/23/2017 90474 Neuroplasty/Transposition, Ulnar Nerve At Wrist Completed 05/23/2017 32879 Neuroplasty &/Or Transposition; Ulnar Nerve At Completed Elbow 05/23/2017 84615 Neuroplasty &/Or Transposition; Ulnar Nerve At Completed Elbow 03/08/2017 79348 Polysomnography Sleep Staging 4+ Parameters Completed 01/22/2017 09205 Pulmonary Function><Bronchodil Completed 01/22/2017 52373 Plethysmography Determination Lung Volumes & Per Completed Airway Resist 01/22/2017 00160 Diffusing Capacity Completed 05/06/2014 43253 Inject/Drain Joint/Bursa Major Completed 04/02/2013 49199 Nerve Conduction 09-10 Studies Completed 04/02/2013 81592 Needle Electromyography Complete, Five Or More Muscles Completed Studied 07/15/2012 30764 Color Flow Doppler/Interp & Reprt Completed 07/15/2012 92410 Pulse Wave/Continuous-Interp.RPT Completed 07/15/2012 66243 ECHO Transthorasic Realtime 2D W Doppler & Color Completed Flow Hosp 05/02/2012 16817 EKG, Interpretation Only Completed Encounters Type Date Location Provider CPT E/M Dx Office Visit 09/04/2017 [facility] [place] [address] G56.21 9:15a Ck G56.22 Office Visit 08/19/2017 10:04a [facility], Swati Nolasco 95304 R55 Hospitalists M.Eusebio R79.89 J45.20 J11.1 Office Visit 08/18/2017 10:03a [facility], Swati Nolasco 47176 R55 Hospitalists M.Eusebio R79.89 J44.1 J45.20 Office Visit 08/06/2017 8:30a [facility] Fisher 84182 M54.32 CChuyita Mora Office Visit 04/18/2017 9:30a [facility] 84741 G57.81 C.Ish Mora Office Visit 04/09/2017 2:30p [facility] [address] J45.909 Services Of [facility] Office Visit 02/15/2017 2:15p [facility] Fisher 58945 G57.81 C.Ish Mora Office Visit 02/01/2017 1:30p [facility] [place] [address] G56.21 C.M.ACristian Office Visit 01/18/2017 8:00a [facility] [place] [address] G56.21 C.MLexy Office Visit 01/15/2017 10:15a [facility] [place] [address] J45.901 Services Of [facility] J30.9 K21.9 R06.83 R51 G47.8 R40.0 J98.11 Office Visit 12/07/2016 2:45p [facility]ей Fisher 18109 G57.81 Of Ck Mora Office Visit 11/22/2016 9:00a [facility] Андрей Fisher 87611 G57.81 Of Ck Mora Office Visit 04/16/2016 11:20a [facility] Clover Webber 10548 S63.631D Of Ck SIERRA S63.633D Office Visit 03/05/2016 9:50a [facility] Marcia Baum 26397 S63.631D Of Ck Mora Office Visit 01/19/2016 2:40p [facility] Marcia Baum, 49422 S63.631A Of Ck Mora S63.633A Office Visit 10/24/2015 2:49p [facility], Sunil Mccormack, 86296 J45.52 Hospitalmadeleine Mora J10.1 I10 E11.9 Office Visit 10/23/2015 2:38p [facility] [place] [address] J45.52 Assoc, Hospitalmadeleine Mora J10.1 I10 E11.9 Office Visit 11/03/2014 9:35a [facility], Sunil Mccormack, 09098 518.81 Hospitalists Morgan 493.92 490 038.9 Office Visit 11/02/2014 9:34a [facility], Sunil Mccormack, 15777 518.81 Hospitalists [place] 493.92 490 038.9 Office Visit 11/01/2014 9:34a [facility], Sunil Mccormack, 40584 518.81 Hospitalists [place] 493.92 490 038.9 Office Visit 10/31/2014 9:34a [facility], Azucena Armendariz, 64507 518.81 Hospitalists MIsela 493.92 490 038.9 Office Visit 08/18/2014 8[facility] Angel Becerril.PCristian 98166 482.9 Hospitalists 038.9 401.9 272.4 Office Visit 08/17/2014 8:30a [facility], [place], LEAD FURNACE OPERATOR 28564 482.9 Hospitalists 038.9 401.9 272.4 Office Visit 08/16/2014 8:29a [facility], 65057 482.9 Assoc, Hospitalists MIsela 038.9 401.9 272.4 Office Visit 05/06/2014 8:45a [facility] Marcelo Gamboa M.D. 82738 726.10 C.M.A. Office Visit 08/19/2012 1:15p [facility], Андрей Lucero, 39975 995.91 Hospitalists N.P. 493.02 481 250.00 Office Visit 08/18/2012 1:14p [facility], Андрей Lucero, 25298 995.91 Hospitalists N.P. 493.02 481 250.00 Office Visit 08/17/2012 1:14p [facility], Tracie Mills, 16363 995.91 Hospitalists N.P. 493.02 481 250.00 Office Visit 08/16/2012 1:13p [facility], Tracie [place], 33372 995.91 Hospitalists N.P. 493.02 481 250.00 Office Visit 07/17/2012 6:48p [facility], Sunil Mccormack, 55915 518.81 Hospitalists MIsela 493.02 466.0 250.90 Office Visit 07/16/2012 6:48p [facility], Azucena Armendariz, 47094 518.81 Hospitalists MIsela 493.02 466.0 Office Visit 07/15/2012 6:47p [facility], Azucena Armendariz, 01635 518.81 Hospitalists MIsela 493.02 466.0 Office Visit 07/14/2012 6:47p [facility] Chelsea Chapman, 11223 518.81 Assoc, Hospitalists Morgan 493.02 466.0 250.90 Office Visit 05/05/2012 7:27a [facility],pc Swati Nolasco, 10790 493.02 Hospitalists Morgan 995.91 401.9 Office Visit 05/04/2012 7:26a [facility], Swati Nolasco, 28072 493.02 Hospitalists Morgan 995.91 401.9 Office Visit 05/03/2012 7:26a [facility], Luis Newell M.D. 26937 493.02 Hospitalists 995.91 401.9 Office Visit 05/02/2012 7:25a [facility], Luis Newell M.D. 63630 493.02 Hospitalists 995.91 401.9 Office Visit 03/02/2009 12:30a [facility] Donal Aguilera, 90511 493.92 Assoc, Hospitalmadeleine Mora Office Visit 03/01/2009 12:15a [facility] Chelsea Chapman, 59450 493.92 Assoc, Hospitalists Morgan Plan of Care Future Appointment(s):12/03/2017 2:00 pm - Андрей Hadley MD at [facility]04/09/2018 9:00 am - Temi Najera MD at [facility]12/26/2017 9:00 am - Андрей Fisher M.D. at [facility]
--- OUTSIDE RECORDS SUMMARY | 2017-11-02 10:34 | XMS REPORT ---
:1960 External Reference #:[id number] Author Organization [facility] [employer] Address [address] [address] Phone [phone] Care Team Providers Name Role Phone Nithya Blanco FNP Primary Care Physician Unavailable Payers Type Date Identification Numbers Payment Provider Subscriber Medicare Primary Effective: Policy Number: Medicare Tess Clark 2011 [id number] PayID: [id number] [address] [place] [address] [facility] Part B Policy Number: [id number] Medicaid Tess Clark PayID: [id number] [address] [place] [address] Problems Date Description Provider Status Onset: 01/15/2017 [...] Form Strength Qnty SIG Indications Ordering Provider Bevespi 10/07 Active Aerosol 9-4.8mcg/ 17.7g 2 puffs J44.1 Tracie S. Aerosphere /2018 Act m inhalation Foster, twice N.P. daily. Albuterol Active Nebulizer (2.5mg/3M 100un 1 vial via Unknown Sulfate /0000 L) 0.083% its nebulizer 4 times daily as needed Calcium 500+D Active daily Unknown /0000 Epipen 2-Gulshan Active Solution 0.3mg/0.3 1unit use as Unknown /0000 Auto-Injec ML s directed t Ipratropium Active Solution 0.5-2.5(3 60uni 1 vial in Unknown [place]/Albutero /0000 )mg/3ML ts nebulizer l Sulfate three [...] mouth once daily Vitamin D3 Active Capsules 79323Nuqp Unknown /[address] 40mg take 1 Unknown Sodium /0000 tablet by mouth once daily Cyclobenzaprine Active Unknown HCL /0000 Tramadol 05/23 Hx Tablets 37.5-325m 30tab 1-2 tab by Андрей Patino/Ac g s mouth every MD Leonie etaminophen - 4-6 hours 09/04 as needed Tramadol HCL 05/23 Hx Tablets 50mg 30tab 1-2 tabs by Marcia s mouth every Baum, - 4-6 hours M.D. 09/04 as needed for pain Ranitidine HCL 01/15 Hx Tablets 150mg 30tab take one K21.9 Temi /2017 s tablet by MD Reinaldo - mouth at 02/06 bedtime /2016 Advair Diskus Hx Unknown /0000 - 01/14 Butrans Hx Patches 10mcg/HR 4unit topical Unknown /0000 Weekly s q7 - 01/17 Celebrex Hx Capsules 200mg 30cap 1 by mouth Unknown /0000 s every day - 01/14 Gabapentin Hx Capsules 100mg 90cap 1 po qhs [...] s every day - 01/14 Metformin HCL 00 Hx Tablets 500mg 1 by mouth Unknown /0000 twice a day - 01/14 Medications Administered in Office Medication Date Status Form Strength Qnty SIG Indications Ordering Provider Depomedjesus Administered Injection Marcelo 80MG Clark Gamboa M.D. Immunizations CPT Code Status Date Vaccine Lot # [id number] Given 05/07/2016 Influenza Virus 3Yrs & Over Vital Signs Date Vital Result Comment 10/07/2017 Height 61 inches 5'1" Weight 154.56 [...] 60.3 >60 Egfr 77.6 >60 4 1 Composition Worker: [id number] Composition Worker: [id number] Specimen Lipemic. Result may not be [...] Procedures Date CPT Code Description Status 05/23/2017 27566 Neuroplasty/Transposition, Ulnar Nerve At Wrist Completed 05/23/2017 36040 Neuroplasty &/Or Transposition; Ulnar Nerve At Completed Elbow 05/23/2017 52314 Neuroplasty &/Or Transposition; Ulnar Nerve At Completed Elbow 03/08/2017 72688 Polysomnography Sleep Staging 4+ Parameters Completed 01/22/2017 39489 Diffusing Capacity Completed 01/22/2017 46933 Plethysmography Determination Lung Volumes & Per Completed Airway Resist 01/22/2017 79018 Pulmonary Function><Bronchodil Completed 05/06/2014 09991 Inject/Drain Joint/Bursa Major Completed 04/02/2013 61709 Nerve Conduction 09- Studies Completed 04/02/2013 22935 Needle Electromyography Complete, Five Or More Muscles Completed Studied 07/15/2012 85309 Color Flow Doppler/Interp & Reprt Completed 07/15/2012 93233 Pulse Wave/Continuous-Interp.RPT Completed 07/15/2012 80397 ECHO Transthorasic Realtime 2D W Doppler & Color Completed Flow Hosp 05/02/2012 24211 EKG, Interpretation Only Completed Encounters Type Date Location Provider CPT E/M Dx Office Visit 09/04/2017 [facility] [place] [address] G56.21 9:15a [facility] G56.22 Office Visit 08/19/2017 10:04a [facility] [address] R55 Hospitalists M.D. R79.89 J45.20 J11.1 Office Visit 08/18/2017 10:03a [facility] [address]143 R55 Hospitalists M.D. R79.89 J44.1 J45.20 Office Visit 08/06/2017 8:30a [facility] 43115 M54.32 C.Ish Anthony. Office Visit 04/18/2017 9:30a [facility] 21157 G57.81 C.MLexy Mora Office Visit 04/09/2017 2:30p [facility] [place] [address] J45.909 Services Of [facility] Office Visit 02/15/2017 2:15p [facility] 26343 G57.81 C.MLexy Mora Office Visit 02/01/2017 1:30p [facility] [place] [address] G56.21 C.M.A. Office Visit 01/18/2017 8:00a [facility] [place] [address] G56.21 C.M.A. Office Visit 01/15/2017 10:15a [facility] [place] [address] J45.901 Services Of [facility] J30.9 K21.9 R06.83 R51 G47.8 R40.0 J98.11 Office Visit 12/07/2016 2:45p [facility] 92247 G57.81 Of C.Ish Mora Office Visit 11/22/2016 9:00a [facility] Андрей Fisher 00016 G57.81 Of C.MLexy MIsela Office Visit 04/16/2016 11:20a [facility] [place] 05947 S63.631D Of Ck FLORES-Bimal S63.633D Office Visit 03/05/2016 9:50a [facility] Marcia Baum, 33224 S63.631D Of Ck Mora Office Visit 01/19/2016 2:40p [facility] Marcia Baum, 83272 S63.631A Of Ck Mora S63.633A Office Visit 10/24/2015 2:49p [facility], Sunil Mccormack, 86529 J45.52 Hospitalists Morgan J10.1 I10 E11.9 Office Visit 10/23/2015 2:38[place], [address] J45.52 Assoc, Hospitalists Morgan J10.1 I10 E11.9 Office Visit 11/03/2014 9:35a [facility], Sunil Mccormack, 42405 518.81 Hospitalists MIsela 493.92 490 038.9 Office Visit 11/02/2014 9:34a [facility], Sunil Mccormack, 44278 518.81 Hospitalists MIsela 493.92 490 038.9 Office Visit 11/01/2014 9:34a [facility], Sunil Mccormack, 78706 518.81 Hospitalists MIsela 493.92 490 038.9 Office Visit 10/31/2014 9:34a [facility], Azucena Armendariz, 32274 518.81 Hospitalists MIsela 493.92 490 038.9 Office Visit 08/18/2014 8:30a [facility], Sahara Nixon, N.Alexander 24856 482.9 Hospitalists 038.9 401.9 272.4 Office Visit 08/17/2014 8:30a [facility], [place] [address] 482.9 Hospitalists 038.9 401.9 272.4 Office Visit 08/16/2014 8:29[facility] [address] 482.9 Assoc, Hospitalists Morgan 038.9 401.9 272.4 Office Visit 05/06/2014 8:45a [facility] Marcelo Gamboa M.D. 06995 726.10 C.M.A. Office Visit 08/19/2012 1:15p [facility], Андрей Lucero, 61324 995.91 Hospitalists N.P. 493.02 481 250.00 Office Visit 08/18/2012 1:14p [facility], Андрей Lucero, 87287 995.91 Hospitalists N.P. 493.02 481 250.00 Office Visit 08/17/2012 1:14p [facility], Tracie [place], 95782 995.91 Hospitalists N.P. 493.02 481 250.00 Office Visit 08/16/2012 1:13p [facility], Tracie Mills, 76397 995.91 Hospitalists N.P. 493.02 481 250.00 Office Visit 07/17/2012 6:48p [facility], Sunil Mccormack, 78323 518.81 Hospitalists Morgan 493.02 466.0 250.90 Office Visit 07/16/2012 6:48p [facility], Azucena Armendariz, 85448 518.81 Hospitalists MIsela 493.02 466.0 Office Visit 07/15/2012 6:47p [facility], Azucena Armendariz, 78559 518.81 Hospitalists MIsela 493.02 466.0 Office Visit 07/14/2012 6:47p [facility] Chelsea Chapman, 92939 518.81 Assoc, Hospitalists Morgan 493.02 466.0 250.90 Office Visit 05/05/2012 7:27a [facility], Swati Nolasco, 24768 493.02 Hospitalists MIsela 995.91 401.9 Office Visit 05/04/2012 7:26a [facility], Swati Nolasco, 41615 493.02 Hospitalists MIsela 995.91 401.9 Office Visit 05/03/2012 7:26a [facility], Luis Newell M.D. 31133 493.02 Hospitalists 995.91 401.9 Office Visit 05/02/2012 7:25a [facility], Luis Newell M.D. 63133 493.02 Hospitalists 995.91 401.9 Office Visit 03/02/2009 12:30a [facility] Donal Aguilera, 40025 493.92 Assoc, Hospitalists Morgan Office Visit 03/01/2009 12:15a [facility] Chelsea Chapman, 74847 493.92 Assoc, Hospitalists MIsela Plan of Care Future Appointment(s):04/09/2018 9:00 am - Temi Najera MD at [facility]10/14/2017 2:15 pm - SHANICE Alfaro at [facility]10/14/2017 2:15 pm - Андрей Hadley MD at [facility]10/25/2017 11:00 am - Андрей Hadley MD at [facility]12/26/2017 9:00 am - Андрей Fisher M.D. at [facility]10/07/2017 - Tracie Mills, N.P.J44.1 Chronic obstructive pulmonary disease w (acute) exacerbationNew Medication:Bevespi Aerosphere 9-4.8 mcg/ActFollow up:6 mo f/u MDRecommendations:Stop Incruse Ellipta; Start Bevespi Continue Advair inhaled 2x daily Continue nebulizer 2-3 x dayJ45.909 Unspecified asthma, uncomplicated
--- NOTE | 2017-11-02 11:05 | UC ---
Skin Complaint HPI - HPI Summary HPI Summary: Patient had an ulnar nerve decompression October 14, [address] Hadley. Patient wound was healing well. Then 2 days ago noticed redness and swelling in around wound and at left elbow. Patient has full range of motion no fevers chills or streaking no discharge from wound. Erythema extends about 1 cm out from incisions - History of Current Complaint Chief Complaint: UCUpperExtremity Time Seen by Provider: 11/02/17 11:03 Stated Complaint: SOFT TISSUE Hx Obtained From: Patient ?: No Onset/Duration: Sudden Onset, Lasting Days - 2, Still Present Onset Severity: Moderate Current Severity: Moderate Location: Discrete - Left elbow Character: Swelling - Minimal swelling around site of incision, Redness, Painful Aggravating Factor(s): Nothing Alleviating Factor(s): Nothing Associated Signs & Symptoms: Positive: Tenderness. Negative: Drainage, Red Streaks - Allergy/Home Medications Allergies/Adverse Reactions: Allergies Allergy/AdvReac Type Severity Reaction Status Date / Time Adhesive Tape Allergy Mild Rash Verified 11/02/17 10:40 amoxicillin [From Augmentin] Allergy Rash Verified 11/02/17 10:40 azithromycin Allergy Rash And Verified 11/02/17 10:40 Itching clavulanic acid Allergy Rash Verified 11/02/17 10:40 [From Augmentin] hydromorphone [From Dilaudid] Allergy Rash Verified 11/02/17 10:40 morphine Allergy Difficulty Verified 11/02/17 10:40 Breathing moxifloxacin [From Avelox] Allergy Rash Verified 11/02/17 10:40 tapentadol [From Nucynta] Allergy Rash Verified 11/02/17 10:40 tolmetin [From Tolectin] Allergy Rash Verified 11/02/17 10:40 valdecoxib [From Bextra] Allergy Rash Verified 11/02/17 10:40 PERFUMES Allergy Severe DYSPNEA Uncoded 11/02/17 10:40 Review of Systems Constitutional: Negative Skin: Other - Erythema pain and slight swelling around surgical incision left elbow Eyes: Negative ENT: Negative Respiratory: Negative Cardiovascular: Negative Gastrointestinal: Negative Genitourinary: Negative Motor: Negative Neurovascular: Negative Musculoskeletal: Negative Neurological: Negative Psychological: Negative Is Patient Immunocompromised?: No All Other Systems Reviewed And Are Negative: Yes PMH/Surg Hx/FS Hx/Imm Hx Previously Healthy: No Endocrine History: Dyslipidemia Respiratory History: Asthma GI/ History: Gastroesophageal Reflux Other History Of: Negative For: Anticoagulant Therapy - Surgical History Surgical History: Yes Surgery Procedure, Year, and Place: TUBAL LIGATION in 1988. hole in ear closed (no implant). tonsils as a child. RIGHT ULNAR NERVE TRANSPOSITON 05/14 [facility]. ulnar nerve repair - Family History Known Family History: Positive: Cardiac Disease, Hypertension, Diabetes - Social History Occupation: Disabled Lives: With Family Alcohol Use: None Substance Use Type: None Smoking Status (MU): Never Smoked Tobacco Have You Smoked in the Last Year: No - Immunization History Most Recent Influenza Vaccination: 2015 Most Recent Tetanus Shot: unknown Most Recent Pneumonia Vaccination: within 5 years Physical Exam Triage Information Reviewed: Yes Appearance: Well-Appearing, No Pain Distress, Well-Nourished Vital Signs: Initial Vital Signs Temp 97.5 F 11/02/17 10:36 Pulse 75 11/02/17 10:36 Resp 18 11/02/17 10:36 BP 143/84 11/02/17 10:36 Pulse Ox 99 11/02/17 10:36 Vital Signs Reviewed: Yes Eye Exam: Normal Eyes: Positive: Conjunctiva Clear ENT Exam: Normal ENT: Positive: Normal ENT inspection, Hearing grossly normal. Negative: Trismus , Muffled voice, Hoarse voice Dental Exam: Normal Neck exam: Normal Neck: Positive: Supple, Nontender Respiratory Exam: Normal Respiratory: Positive: Chest non-tender, Lungs clear, Normal breath sounds, No respiratory distress, No accessory muscle use Cardiovascular Exam: Normal Cardiovascular: Positive: RRR, No Murmur, Pulses Normal, Brisk Capillary Refill Musculoskeletal Exam: Normal Musculoskeletal: Positive: Strength Intact, ROM Intact, No Edema Neurological Exam: Normal Neurological: Positive: Alert Psychological Exam: Normal Skin Exam: Other Skin: Positive: Other - 1 cm erythema around surgical incision on left elbow, tender to touch, no drainage streaking, slight swelling, range of motion Course/Dx - Course Course Of Treatment: Soap and water wash twice a day warm compresses every 1-2 hours ucgbna-vti-ihpje while awake. Bactrim twice a day for 10 days. To the emergency department should symptoms worsen in anyway. follow with Dr. Hadley first thing on Saturday. - Diagnoses Provider Diagnoses: Wound infection left elbow, elevated blood pressure without diagnosis or history of hypertension Discharge - Sign-Out/Discharge Documenting (check all that apply): Discharge - Discharge Plan Condition: Stable Disposition: HOME Prescriptions: Sulfamethox/Trimethoprim DS* [Bactrim DS 800/160 TAB*] 1 tab PO BID #20 tab Patient Education Materials: Wound Infection (ED), Hypertension (ED), Warm Compress or Soak (ED) Referrals: Nithya Ruggiero RN [Primary Care Provider] - 1 Week Андрей Hadley MD [Medical Doctor] - 11/04/17 Additional Instructions: Please wash wound twice a day. Keep wound clean and dry. Use warm compresses every 2-3 hours for 10-15 minutes while awake. Start the antibiotics today and get 2 doses in. If symptoms worsen in any way to go to emergency department for further care. Call Dr. Hadley office first thing Saturday morning for wound recheck - Billing Disposition and Condition Condition: STABLE Disposition: HOME
[2017-11-02 12:26] VITALS: BP 143/84
== END 2017-11-02 11:26 | disposition home or self-care (01) ==
LOC: UCEAST 10:26
DX: T81.4XXA Infection following a procedure, initial encounter (principal); B99.9 Unspecified infectious disease; R03.0 Elevated blood-pressure reading, without diagnosis of hypertension; E78.5 Hyperlipidemia, unspecified; J45.909 Unspecified asthma, uncomplicated; K21.9 Gastro-esophageal reflux disease without esophagitis; Z88.1 Allergy status to other antibiotic agents; Z88.5 Allergy status to narcotic agent; Z88.0 Allergy status to penicillin; Z88.8 Allergy status to other drugs, medicaments and biological substances; Z91.048 Other nonmedicinal substance allergy status
CPT/HCPCS: 99213; G0463

== ENCOUNTER 2018-03-18 17:05 | Emergency (ER) | payer MEDICARE, MEDICAID ==
--- OUTSIDE RECORDS SUMMARY | 2018-03-18 17:22 | XMS REPORT ---
:1960 External Reference #:[id number] Author Organization [facility] Address [address] [place] [address] [place] [address] Phone [phone] Care Team Providers Name Role Phone Nithya Blanco FNP Primary Care Physician Unavailable Payers Type Date Identification Numbers Payment Provider Subscriber Medicare Primary Effective: Policy Number: Medicare Tess Clark 2011 [id number] PayID: [id number] [address] [place] [address] [facility] Part B Policy Number: [id number] Medicaid Tess Clark PayID: [id number] [address] [place] [address] Problems Date Description Provider Status Onset: 01/15/2017 [...] Solution 0.5-2.5(3 60uni 1 vial in Unknown [place]/Albutero /0000 )mg/3ML ts nebulizer l Sulfate three [...] mouth once daily Vitamin D3 Active Capsules 82757Masx Unknown /[address] 40mg take 1 Unknown Sodium /0000 tablet by mouth once daily Cyclobenzaprine Active Unknown HCL / Tramadol HCL 10/14 Hx Tablets 50mg 30tab 1-2 tablets s by mouth MD Leonie - every 6 04/09 hours needed pain Tramadol 05/23 Hx Tablets 37.5-325m 30tab 1-2 [...] mouth at 02/06 bedtime /2016 Advair Diskus 00 Hx Unknown /0000 - 01/14 Butrans Hx Patches 10mcg/HR 4unit topical Unknown /0000 Weekly s q7days - 01/17 Celebrex Hx Capsules 200mg 30cap [...] CPT Code Status Date Vaccine Lot # [id number] Given 05/07/2016 Influenza Virus 3Yrs & Over Vital Signs Date Vital Result Comment 02/25/2018 Height 61 inches 5'1" Weight 152.00 lb Heart Rate 80 /min BP Systolic 160 mmHg BP Diastolic 82 mmHg Respiratory Rate 12 /min Pain Level 10 BMI (Body Mass Index) 28.7 kg/m2 12/26/2017 Height 61 inches 5'1" Weight 152.00 lb BP Systolic 122 mmHg BP Diastolic 67 mmHg Respiratory Rate 16 /min Pain Level 7 BMI (Body Mass Index) 28.7 kg/m2 12/03/2017 Height 61 inches 5'1" Weight 152.00 lb Heart Rate 60 /min BP Systolic 140 mmHg BP Diastolic 76 mmHg Respiratory Rate 16 /min Body Temperature 98.6 F Pain Level 8 BMI (Body Mass Index) 28.7 kg/m2 11/13/2017 Height 61 inches 5'1" Weight 152.00 lb Heart Rate 90 /min Respiratory Rate 16 /min Pain Level 2 BMI (Body Mass Index) 28.7 kg/m2 11/06/2017 Height 61 inches 5'1" Weight 142.00 lb Heart Rate 90 /min Respiratory Rate 16 /min Pain Level 10 BMI (Body Mass Index) 26.8 kg/m2 10/25/2017 Height 61 inches 5'1" Weight 154.00 [...] 60.3 >60 Egfr 77.6 >60 5 1 Online Communications Manager: [id number] Online Communications Manager: [id number] Online Communications Manager: [id number] Specimen Lipemic. Result may not be [...] Procedures Date CPT Code Description Status 10/14/2017 02325 Neuroplasty/Transposition, Ulnar Nerve AT Wrist Completed 10/14/2017 57751 Neuroplasty &/Or Transposition; Ulnar Nerve AT Elbow Completed 10/14/2017 58969 Neuroplasty &/Or Transposition; Ulnar Nerve AT Elbow Completed 05/23/2017 59251 Neuroplasty/Transposition, Ulnar Nerve AT Wrist Completed 05/23/2017 84789 Neuroplasty &/Or Transposition; Ulnar Nerve AT Elbow Completed 05/23/2017 64426 Neuroplasty &/Or Transposition; Ulnar Nerve AT Elbow Completed 03/08/2017 29848 Polysomnography Sleep Staging 4+ Parameters Completed 01/22/2017 15174 Pulmonary Function><Bronchodil Completed 01/22/2017 04611 Plethysmography Determination Lung Volumes & Per Airway Completed Resist 01/22/2017 97126 Diffusing Capacity Completed 05/06/2014 44709 Inject/Drain Joint/Bursa Major W/O US Completed 04/02/2013 84632 Nerve Conduction 09-10 Studies Completed 04/02/2013 85930 Needle Electromyography Complete, Five Or More Muscles Completed Studied 07/15/2012 67634 Color Flow Doppler/Interp & Reprt Completed 07/15/2012 64719 Pulse Wave/Continuous-Interp.RPT Completed 07/15/2012 82607 ECHO Transthorasic Realtime 2D W Doppler & Color Flow Completed Hosp 05/02/2012 37823 EKG, Interpretation Only Completed Encounters Type Date Location Provider CPT E/M Dx Office Visit 02/25/2018 [facility] 67560 G57.92 9:00a C.M.ACristian Mora G57.91 Office Visit 12/26/2017 9:00a [facility] 85162 G57.92 C.M.ACristian Mora Office Visit 12/03/2017 3:15p [facility] [place] [address] G56.22 C.M.A. S60.212A W19.xxxA Office Visit 10/07/2017 2:30p [facility] [place]ie [place], 85681 J44.1 [facility] NPratik J45.909 Office Visit 09/04/2017 9:15a [facility] [place] [address] G56.21 C.M.ACristian G56.22 Office Visit 08/19/2017 10:04a [facility], 87461 R55 Hospitalists D.O. R79.89 J45.20 J11.1 Office Visit 08/18/2017 10:03a [facility], 13593 R55 Hospitalists D.O. R79.89 J44.1 J45.20 Office Visit 08/06/2017 8:30a [facility] 03682 M54.32 C.Ish Mora Office Visit 04/18/2017 9:30a [facility] 08217 G57.81 C.Ish Mora Office Visit 04/09/2017 2:30p [facility] [place] [address] J45.909 [facility] Office Visit 02/15/2017 2:15p [facility] 15313 G57.81 C.MLexy Mora Office Visit 02/01/2017 1:30p [facility] [place] [address] G56.21 C.M.ACristian Office Visit 01/18/2017 8:00a [facility] [place] [address] G56.21 C.M.ACristian Office Visit 01/15/2017 10:15a [facility] [place] [address] J45.901 [facility] J30.9 K21.9 R06.83 R51 G47.8 R40.0 J98.11 Office Visit 12/07/2016 2:45p [facility] 71521 G57.81 Of Ck Mora Office Visit 11/22/2016 9:00a [facility], 15389 G57.81 Of Ck Mora Office Visit 04/16/2016 11:20a [facility] Clover Webber, 84841 S63.631D Of Ck SIERRA S63.633D Office Visit 03/05/2016 9:50a [facility] Marcia Baum, 29040 S63.631D Of Ck Mora Office Visit 01/19/2016 2:40p [facility] Marcianoe Baum, 52985 S63.631A Of Ck Mora S63.633A Office Visit 10/24/2015 2:49p [facility], Sunil Mccormack, 00775 J45.52 Hospitalists Morgan J10.1 I10 E11.9 Office Visit 10/23/2015 2:38p [place] [address] J45.52 Assoc, Hospitalists [place] J10.1 I10 E11.9 Office Visit 11/03/2014 9:35a [facility], Sunil Mccormack, 98632 518.81 Hospitalists M.DCristian 493.92 490 038.9 Office Visit 11/02/2014 9:34a [facility], Sunil Mccormack, 09952 518.81 Hospitalists M.DCristian 493.92 490 038.9 Office Visit 11/01/2014 9:34a [facility], Sunil Mccormack, 34013 518.81 Hospitalists M.DCristian 493.92 490 038.9 Office Visit 10/31/2014 9:34a [facility],pc Azucena Armendariz, 07321 518.81 Hospitalists M.DCristian 493.92 490 038.9 Office Visit 08/18/2014 8:30a [facility],pc Sahara Nixon, N.Alexander 46263 482.9 Hospitalists 038.9 401.9 272.4 Office Visit 08/17/2014 8:30a [facility], [place] [address] 482.9 Hospitalists 038.9 401.9 272.4 Office Visit 08/16/2014 8:29[place] [facility], [address] 482.9 Assoc, Hospitalists Morgan 038.9 401.9 272.4 Office Visit 05/06/2014 8:45a [facility] Marcelo Gamboa M.D. 08117 726.10 C.M.A. Office Visit 08/19/2012 1:15p [facility], Андрей Luecro, 06917 995.91 Hospitalists N.P. 493.02 481 250.00 Office Visit 08/18/2012 1:14p [facility], Андрей Lucero, 15206 995.91 Hospitalists N.P. 493.02 481 250.00 Office Visit 08/17/2012 [facility]p [facility] [place]ie [place], 64386 995.91 Hospitalists N.P. 493.02 481 250.00 Office Visit 08/16/2012 1:13p [facility] [place], 50232 995.91 Hospitalists N.P. 493.02 481 250.00 Office Visit 07/17/2012 6:48p [facility], Sunil Mccormack, 68174 518.81 Hospitalists Morgan 493.02 466.0 250.90 Office Visit 07/16/2012 6:48p [facility], Azucena Armendariz, 38600 518.81 Hospitalists [place] 493.02 466.0 Office Visit 07/15/2012 6:47p [facility], Azucena Armendariz, 86133 518.81 Hospitalists Morgan 493.02 466.0 Office Visit 07/14/2012 6:47p [facility] Chelsea Chapman, 65976 518.81 Assoc, Hospitalists Morgan 493.02 466.0 250.90 Office Visit 05/05/2012 7:27a [facility], Swati Nolasco, 37725 493.02 Hospitalists D.O. 995.91 401.9 Office Visit 05/04/2012 7:26a [facility], Swati Nolasco, 34043 493.02 Hospitalists D.O. 995.91 401.9 Office Visit 05/03/2012 7:26a [facility], Luis Newell M.D. 97194 493.02 Hospitalists 995.91 401.9 Office Visit 05/02/2012 7:25a [facility], Luis Newell M.D. 05001 493.02 Hospitalists 995.91 401.9 Office Visit 03/02/2009 12:30a [facility] Donal Aguilera, 42104 493.92 Assoc, Hospitalmadeleine Mora Office Visit 03/01/2009 12:15a [facility] Chelsea Chapman, 90689 493.92 [facility] [place] Plan of Care Future Appointment(s):03/05/2018 8:30 am - Андрей Hadley MD at [facility].04/09/2018 9:00 am - Temi Najera MD at [facility]02/25/2018 - [facility]нд[facility]ей Fisher M.D.G57.92 Unspecified mononeuropathy of left lower limbReferral:Brandie Nichols MD, Physical Medicine/RehabFollow up:after testing is eivbamktaR45.91 Unspecified mononeuropathy of right lower limb
--- OUTSIDE RECORDS SUMMARY | 2018-03-18 17:22 | XMS REPORT ---
:1960 External Reference #:[id number] Author Organization [facility] Address [address] [place] [address] [place] [address] Phone [phone] Care Team Providers Name Role Phone Nithya Blanco FNP Primary Care Physician Unavailable Payers Type Date Identification Numbers Payment Provider Subscriber Medicare Primary Effective: Policy Number: Medicare Tess Clark 2011 [id number] PayID: [id number] [address] [place] [address] [facility] Part B Policy Number: [id number] Medicaid Tess Clark PayID: [id number] [address] [place] [address] Problems Date Description Provider Status Onset: 01/15/2017 [...] Solution 0.5-2.5(3 60uni 1 vial in Unknown [place]/Albutero /0000 )mg/3ML ts nebulizer l Sulfate three [...] mouth once daily Vitamin D3 Active Capsules 13857Hkbr Unknown /[address] 40mg [...] CPT Code Status Date Vaccine Lot # [id number] Given 05/07/2016 Influenza Virus 3Yrs & Over Vital Signs Date Vital Result Comment 03/05/2018 Height 61 inches 5'1" Heart Rate 79 /min BP Systolic 118 mmHg BP Diastolic 78 mmHg Respiratory Rate 16 /min Body Temperature 98.6 F Pain Level 8 02/25/2018 Height 61 inches 5'1" Weight 152.00 [...] 60.3 >60 Egfr 77.6 >60 5 1 Victims Advocate Clerk/Specialist: [id number] Victims Advocate Clerk/Specialist: [id number] 3 Victims Advocate Clerk/Specialist: [id number] 4 Specimen Lipemic. Result may not be [...] Procedures Date CPT Code Description Status 10/14/2017 76211 Neuroplasty/Transposition, Ulnar Nerve AT Wrist Completed 10/14/2017 87515 Neuroplasty &/Or Transposition; Ulnar Nerve AT Elbow Completed 10/14/2017 08491 Neuroplasty &/Or Transposition; Ulnar Nerve AT Elbow Completed 05/23/2017 91515 Neuroplasty/Transposition, Ulnar Nerve AT Wrist Completed 05/23/2017 56438 Neuroplasty &/Or Transposition; Ulnar Nerve AT Elbow Completed 05/23/2017 29871 Neuroplasty &/Or Transposition; Ulnar Nerve AT Elbow Completed 03/08/2017 84737 Polysomnography Sleep Staging 4+ Parameters Completed 01/22/2017 36117 Pulmonary Function><Bronchodil Completed 01/22/2017 89249 Plethysmography Determination Lung Volumes & Per Airway Completed Resist 01/22/2017 33077 Diffusing Capacity Completed 05/06/2014 91804 Inject/Drain Joint/Bursa Major W/O US Completed 04/02/2013 51294 Nerve Conduction 09-10 Studies Completed 04/02/2013 91896 Needle Electromyography Complete, Five Or More Muscles Completed Studied 07/15/2012 34998 Color Flow Doppler/Interp & Reprt Completed 07/15/2012 45364 Pulse Wave/Continuous-Interp.RPT Completed 07/15/2012 42021 ECHO Transthorasic Realtime 2D W Doppler & Color Flow Completed Hosp 05/02/2012 42066 EKG, Interpretation Only Completed Encounters Type Date Location Provider CPT E/M Dx Office Visit 12/26/2017 [facility], 58685 G57.92 9:00a C.M.A. MIsela Office Visit 12/03/2017 [facility] [place] [address] G56.22 3:15p C.M.A. S60.212A W19.xxxA Office Visit 10/07/2017 2:30p [facility] [place]ie [place], 38651 J44.1 Services [facility] NPratik J45.909 Office Visit 09/04/2017 9:15a [facility] [place] [address] G56.21 C.M.ACristian G56.22 Office Visit 08/19/2017 10:04a [facility], 28595 R55 Hospitalists D.O. R79.89 J45.20 J11.1 Office Visit 08/18/2017 10:03a [facility], Swati Nolasco, 29337 R55 Hospitalists D.O. R79.89 J44.1 J45.20 Office Visit 08/06/2017 8:30a [facility] 87513 M54.32 Bimal.Ish Mora Office Visit 04/18/2017 9:30a [facility] 79009 G57.81 C.Ish Mora Office Visit 04/09/2017 2:30p [facility] [place] [address] J45.909 Services [facility] Office Visit 02/15/2017 2:15p [facility] 24405 G57.81 C.Ish Mora Office Visit 02/01/2017 1:30p [facility] [place] [address] G56.21 C.M.ACristian Office Visit 01/18/2017 8:00a [facility] [place] [address] G56.21 C.M.ACristian Office Visit 01/15/2017 10:15a [facility] [place] [address] J45.901 [facility] J30.9 K21.9 R06.83 R51 G47.8 R40.0 J98.11 Office Visit 12/07/2016 2:45p [facility] 79194 G57.81 Of Ck Mora Office Visit 11/22/2016 9:00a [facility], 18990 G57.81 Of Ck Mora Office Visit 04/16/2016 11:20a [facility] Clover Webber, 82041 S63.631D Of Ck SIERRA S63.633D Office Visit 03/05/2016 9:50a [facility] Marcia Baum, 98619 S63.631D Of Ck Mora Office Visit 01/19/2016 2:40p [facility] Marcianoe Baum, 58847 S63.631A Of Ck Mora S63.633A Office Visit 10/24/2015 2:49p [facility], Sunil Mccormack, 81988 J45.52 Hospitalists [place] J10.1 I10 E11.9 Office Visit 10/23/2015 2:38p [facility] [place], [address] J45.52 Assoc, Hospitalists MIsela J10.1 I10 E11.9 Office Visit 11/03/2014 9:35a [facility], Sunil Mccormack, 22294 518.81 Hospitalists M.DCristian 493.92 490 038.9 Office Visit 11/02/2014 9:34a [facility], Sunil Mccormack, 33939 518.81 Hospitalists M.DCristian 493.92 490 038.9 Office Visit 11/01/2014 9:34a [facility]oc, Sunil Mccormack, 28166 518.81 Hospitalists M.DCristian 493.92 490 038.9 Office Visit 10/31/2014 9:34a [facility], Azucena Armendariz, 38857 518.81 Hospitalists M.DCristian 493.92 490 038.9 Office Visit 08/18/2014 8:30a [facility], Sahara Nixon, N.PCristian 74229 482.9 Hospitalists 038.9 401.9 272.4 Office Visit 08/17/2014 8:30a [facility], [place] [address] 482.9 Hospitalists 038.9 401.9 272.4 Office Visit 08/16/2014 8:29a [facility] [place], [address] 482.9 Assoc, Hospitalists [place] 038.9 401.9 272.4 Office Visit 05/06/2014 8:45a [facility] Marcelo Gamboa M.D. 97852 726.10 C.M.A. Office Visit 08/19/2012 1:15p [facility], Андрей Lucero, 31963 995.91 Hospitalists N.P. 493.02 481 250.00 Office Visit 08/18/2012 1:14p [facility], Андрей Lucero, 12394 995.91 Hospitalists N.P. 493.02 481 250.00 Office Visit 08/17/2012 1:14p [facility] [place], 06031 995.91 Hospitalists N.P. 493.02 481 250.00 Office Visit 08/16/2012 1:13p [facility] [place], 67911 995.91 Hospitalists N.P. 493.02 481 250.00 Office Visit 07/17/2012 6:48p [facility], Sunil Mccormack, 60378 518.81 Hospitalists Morgan 493.02 466.0 250.90 Office Visit 07/16/2012 6:48p [facility], Azucena Armendariz, 59900 518.81 Hospitalmadeleine Mora 493.02 466.0 Office Visit 07/15/2012 6:47p [facility], Azucena Armendariz, 74038 518.81 Hospitalists Morgan 493.02 466.0 Office Visit 07/14/2012 6:47p [facility] Chelsea Chapman, 56163 518.81 Assoc, Hospitalists Morgan 493.02 466.0 250.90 Office Visit 05/05/2012 7:27a [facility], Swati Nolasco, 42142 493.02 Hospitalists D.O. 995.91 401.9 Office Visit 05/04/2012 7:26a [facility], Swati Nolasco, 11323 493.02 Hospitalists D.O. 995.91 401.9 Office Visit 05/03/2012 7:26a [facility] Asscarina,taylor Newell M.D. 44523 493.02 Hospitalists 995.91 401.9 Office Visit 05/02/2012 7:25a [facility] taylor Salgado M.D. 05572 493.02 Hospitalists 995.91 401.9 Office Visit 03/02/2009 12:30a [facility] Donal Aguilera, 12162 493.92 Assoc Yousif Mora Office Visit 03/01/2009 12:15a [facility] Chelsea Chapman, 91222 493.92 Assoc, Hospitalmadeleine Mora Plan of Care Future Appointment(s):04/09/2018 9:00 am - Temi Najera MD at [facility]
[2018-03-18] MEDS ORDERED: Albuterol/Ipratropium NEB.SOL* Albuterol 2.5 MG/Ipratropium 0.5 MG 3 ML INH ONE (17:45)
[2018-03-18] MEDS ORDERED: methylPREDNISolone 125 MG* 2 ML VIAL IV ONE (17:45)
[2018-03-18 18:06] LABS: ABS Basophils 0.1 10^3/ul (0-0.2); ABS Eosinophils 0.2 10^3/ul (0-0.6); ABS Lymphocytes 2.1 10^3/ul (1.0-4.8); ABS Monocytes 0.4 10^3/ul (0-0.8); ABS Neutrophils 3.3 10^3/ul (1.5-7.7); ABS Nucleated RBC 0 10^3/ul; Eosinophil % 2.9 % (0-6); Hematocrit 41 % (35-47); Hemoglobin 13.7 g/dl (12.0-16.0); Lymphocyte % 34.7 % (25-47); Mean Corpuscular HGB Conc 34 g/dl (31-36); Mean Corpuscular Hemoglobin 29 pg (27-31); Mean Corpuscular Volume 87 fL (80-97); Mean Platelet Volume 9.8 um3 (7.4-10.4); Nucleated Red Blood Cells % 0; Platelet Count 193 10^3/ul (150-450); Red Blood Count 4.67 10^6/ul (4.00-5.40); Red Cell Distribution Width 14 % (10.5-15); White Blood Count 6.1 10^3/ul (3.5-10.8)
[2018-03-18 18:13] LABS: INR 0.86 (0.77-1.02)
[2018-03-18 18:24] LABS: EGFR Non-African American 48.8 (>60)
--- NOTE | 2018-03-18 20:22 | ED ---
Shortness of Breath - HPI Summary HPI Summary: Complaining of CP, SOB starting this afternoon. Patient has history of COPD, not on oxygen. Patient audibly wheezing on arrival. Patient tried a nebulizer at home without relief. Patient was brought by EMS who provided nebulizer 2, nitroglycerin 1, 324 mg of aspirin with no relief. Patient ALSO claims acute on chronic nonproductive cough, vaginal itching. Denies fever, sore throat, N/V /D, abdominal pain, change in urine, change in BM. Medical history COPD. No anti-coag. States stress test one year ago Randal which was negative. Denies estrogen supplements, recent surgery, history of blood clots. - History of Current Complaint Chief Complaint: EDShortnessOfBreath Time Seen by Provider: 03/18/18 17:20 Hx Obtained From: Patient Onset/Duration: Sudden Onset Timing: Constant Current Severity: Moderate Dyspnea At: Rest Aggrevating Factors: Nothing Alleviating Factors: Upright Position Associated Signs & Symptoms: Cough (Nonproductive), Wheezing - Allergy/Home Medications Allergies/Adverse Reactions: Allergies Allergy/AdvReac Type Severity Reaction Status Date / Time Adhesive Tape Allergy Mild Rash Verified 12/02/17 11:27 amoxicillin [From Augmentin] Allergy Rash Verified 12/02/17 11:27 azithromycin Allergy Rash And Verified 12/02/17 11:27 Itching clavulanic acid Allergy Rash Verified 12/02/17 11:27 [From Augmentin] hydromorphone [From Dilaudid] Allergy Rash Verified 12/02/17 11:27 morphine Allergy Difficulty Verified 12/02/17 11:27 Breathing moxifloxacin [From Avelox] Allergy Rash Verified 12/02/17 11:27 tapentadol [From Nucynta] Allergy Rash Verified 12/02/17 11:27 tolmetin [From Tolectin] Allergy Rash Verified 12/02/17 11:27 valdecoxib [From Bextra] Allergy Rash Verified 12/02/17 11:27 PERFUMES Allergy Severe DYSPNEA Uncoded 12/02/17 11:27 PMH/Surg Hx/FS Hx/Imm Hx Endocrine/Hematology History: Reports: Hx Diabetes - BOARDERLINE Denies: Hx Anticoagulant Therapy, Hx Blood Disorders, Hx Blood Transfusions, Hx Bone Marrow Disease, Hx Systemic Lupus Erythematosus, Hx Sickle Cell Disease , Hx Thyroid Disease, Hx Anemia, Hx Unexplained Bleeding Cardiovascular History: Reports: Hx Hypercholesterolemia, Hx Hypotension, Hx Hypertension, Other Cardiovascular Problems/Disorders - DIABETIC Denies: Hx Aneurysm, Hx Angina, Hx Angioplasty, Hx Auto Implanted Cardiovert Defib, Hx Cardiac Arrest, Hx Cardiomegaly, Hx Congenital Heart Disease, Hx Congestive Heart Failure, Hx Coronary Artery Disease, Hx Deep Vein Thrombosis, Hx Pacemaker/ICD, Hx Peripheral Vascular Disease, Hx Rheumatic Fever, Hx Syncope , Hx Valvular Heart Disease Respiratory History: Reports: Hx Asthma - USES INHALERS, Hx Chronic Bronchitis, Hx Chronic Obstructive Pulmonary Disease (COPD), Hx Pneumonia, Hx Seasonal Allergies, Other Respiratory Problems/Disorders Denies: Hx Cystic Fibrosis, Hx Lung Cancer, Hx Pleural Effusion, Hx Pulmonary Edema, Hx Pulmonary Embolism, Hx Sleep Apnea GI History: Reports: Hx Diverticulosis, Hx Gastroesophageal Reflux Disease - ON MEDICATION FOR STATES CONTROLLED, Other GI Disorders - CHRONIC CONSTIPATION Denies: Hx Ulcer History: Denies: Hx Acute Renal Failure, Hx Benign Prostatic Hyperplasia, Hx Chronic Renal Failure, Hx Dialysis, Hx Kidney Infection, Hx Kidney Stones, Hx Renal Disease, Other Problems/Disorders Musculoskeletal History: Reports: Hx Arthritis, Hx Back Problems, Hx Bursitis, Hx Osteoporosis, Hx Scoliosis, Hx Tendonitis, Other Musculoskeletal History - DEGENERATIVE DISC DISEASE Denies: Hx Rheumatoid Arthritis, Hx Congenital Bone Abnormalities, Hx Fibromyalgia, Hx Gout, Hx Orthopedic Injury Sensory History: Reports: Hx Contacts or Glasses - GLASSES, Hx Hearing Problem Denies: Hx Cataracts, Hx Eye Injury, Hx Eye Prosthesis, Hx Glaucoma, Hx Macular Degeneration, Hx Vision Problem, Hx Deafness, Hx Hearing Aid, Other Sensory Impairments Opthamlomology History: Reports: Hx Contacts or Glasses - GLASSES Denies: Hx Cataracts, Hx Eye Injury, Hx Eye Prosthesis, Hx Glaucoma, Hx Macular Degeneration, Hx Vision Problem, Other Sensory Impairments Neurological History: Reports: Hx Headaches - reportedly d/t degenerative disc disease Denies: Hx Dementia Psychiatric History: Denies: Hx Anxiety, Hx Attention Deficit Hyperactivity Disorder, Hx Eating Disorder, Hx Depression, Hx Panic Disorder, Hx Post Traumatic Stress Disorder, Hx Inpatient Treatment, Hx Community Mental Health Tx, Hx Schizophrenia, Hx Bipolar Disorder, Hx Suicide Attempt, Hx Substance Abuse, Other Psychiatric Issues/Disorders - Cancer History Hx Chemotherapy: No Hx Radiation Therapy: No Hx Palliative Cancer Treatment: No - Surgical History Surgery Procedure, Year, and Place: TUBAL LIGATION in 1988. hole in ear closed. tonsils as a child. RIGHT ULNAR NERVE TRANSPOSITON 05/14 [facility]. ulnar nerve repair Hx Anesthesia Reactions: No - Immunization History Date of Tetanus Vaccine: Unk Date of Influenza Vaccine: None Infectious Disease History: No Infectious Disease History: Reports: Hx of Known/Suspected MRSA, Hx Shingles - [id number], History Other Infectious Disease - influenza A Denies: Hx Clostridium Difficile, Hx Hepatitis, Hx Human Immunodeficiency Virus (HIV), Hx Tuberculosis, Traveled Outside the [place] in Last 30 Days - Family History Known Family History: Positive: Cardiac Disease, Hypertension, Diabetes - Social History Alcohol Use: None Substance Use Type: Reports: None Hx Tobacco Use: Yes Smoking Status (MU): Never Smoked Tobacco Have You Smoked in the Last Year: No Review of Systems Constitutional: Negative Eyes: Negative ENT: Negative Positive: Chest Pain Positive: Shortness Of Breath Gastrointestinal: Negative Genitourinary: Negative Musculoskeletal: Negative Skin: Negative Neurological: Negative Psychological: Normal All Other Systems Reviewed And Are Negative: Yes Physical Exam - Summary Physical Exam Summary: Patient audibly wheezing. Alert and oriented, speaking in full sentences. Triage Information Reviewed: Yes Vital Signs On Initial Exam: Initial Vitals Pulse BP Pulse Ox 88 157/102 99 03/18/18 17:11 03/18/18 17:11 03/18/18 17:11 Vital Signs Reviewed: Yes Appearance: Positive: Well-Appearing Skin: Positive: Warm Head/Face: Positive: Normal Head/Face Inspection Eyes: Positive: Normal Neck: Positive: Supple Respiratory/Lung Sounds: Positive: Wheezes Cardiovascular: Positive: Normal Abdomen Description: Positive: Nontender Musculoskeletal: Positive: Normal Neurological: Positive: Normal Psychiatric: Positive: Normal AVPU Assessment: Alert - Damaris Coma Scale Best Eye Response: 4 - Spontaneous Best Motor Response: 6 - Obeys Commands Best Verbal Response: 5 - Oriented Coma Scale Total: 15 Diagnostics - Vital Signs Vital Signs Temp Pulse Resp BP Pulse Ox 03/18/18 19:11 80 18 134/78 97 03/18/18 19:00 80 24 96 03/18/18 18:41 84 23 155/86 97 03/18/18 18:11 90 22 166/102 95 03/18/18 18:00 93 28 94 03/18/18 17:59 83 20 94 03/18/18 17:41 16 183/110 03/18/18 17:13 98 F 91 20 157/102 94 03/18/18 17:11 88 157/102 99 - Laboratory Lab Results: Lab Results 03/18/18 03/18/18 03/18/18 Range/Units 17:58 18:00 18:00 WBC 6.1 (3.5-10.8) 10^3/ul RBC 4.67 (4.00-5.40) 10^6/ul Hgb 13.7 (12.0-16.0) g/dl Hct 41 (35-47) % MCV 87 (80-97) fL MCH 29 (27-31) pg MCHC 34 (31-36) g/dl RDW 14 (10.5-15) % Plt Count 193 (150-450) 10^3/ul MPV 9.8 (7.4-10.4) um3 Neut % (Auto) 54.4 (38-83) % Lymph % (Auto) 34.7 (25-47) % Martin % (Auto) 6.8 (0-7) % Eos % (Auto) 2.9 (0-6) % Baso % (Auto) 1.2 (0-2) % Absolute Neuts (auto) 3.3 (1.5-7.7) 10^3/ul Absolute Lymphs (auto) 2.1 (1.0-4.8) 10^3/ul Absolute Monos (auto) 0.4 (0-0.8) 10^3/ul Absolute Eos (auto) 0.2 (0-0.6) 10^3/ul Absolute Basos (auto) 0.1 (0-0.2) 10^3/ul Absolute Nucleated RBC 0 10^3/ul Nucleated RBC % 0 INR (Anticoag Therapy) (0.77-1.02) ABG pH 7.41 (7.35-7.45) ABG pCO2 33 L (35-45) mmHg ABG pO2 72 L (80-100) mmHg ABG HCO3 22.5 (19-31) mmol/L ABG O2 Saturation 96.0 (95-98) % ABG Base Excess -3.0 L (-2.0-2.0) Sodium 141 (135-145) mmol/L Potassium 3.8 (3.5-5.0) mmol/L Chloride 109 (101-111) mmol/L Carbon Dioxide 24 (22-32) mmol/L Anion Gap 8 (2-11) mmol/L BUN 16 (6-24) mg/dL Creatinine 1.15 H (0.51-0.95) mg/dL Est GFR ( Amer) 59.1 (>60) Est GFR (Non-Af Amer) 48.8 (>60) BUN/Creatinine Ratio 13.9 (8-20) Glucose 139 H (70-100) mg/dL Lactic Acid (0.5-2.0) mmol/L Calcium 8.7 (8.6-10.3) mg/dL Magnesium 2.0 (1.9-2.7) mg/dL Total Bilirubin 0.40 (0.2-1.0) mg/dL AST 21 (13-39) U/L ALT 18 (7-52) U/L Alkaline Phosphatase 74 (34-104) U/L Troponin I 0.00 (<0.04) ng/mL B-Natriuretic Peptide ( - 100) pg/mL Total Protein 6.7 (6.4-8.9) g/dL Albumin 4.3 (3.2-5.2) g/dL Globulin 2.4 (2-4) g/dL Albumin/Globulin Ratio 1.8 (1-3) TSH 2.40 (0.34-5.60) mcIU/mL 03/18/18 03/18/18 03/18/18 Range/Units 18:00 18:00 18:00 WBC (3.5-10.8) 10^3/ul RBC (4.00-5.40) 10^6/ul Hgb (12.0-16.0) g/dl Hct (35-47) % MCV (80-97) fL MCH (27-31) pg MCHC (31-36) g/dl RDW (10.5-15) % Plt Count (150-450) 10^3/ul MPV (7.4-10.4) um3 Neut % (Auto) (38-83) % Lymph % (Auto) (25-47) % Martin % (Auto) (0-7) % Eos % (Auto) (0-6) % Baso % (Auto) (0-2) % Absolute Neuts (auto) (1.5-7.7) 10^3/ul Absolute Lymphs (auto) (1.0-4.8) 10^3/ul Absolute Monos (auto) (0-0.8) 10^3/ul Absolute Eos (auto) (0-0.6) 10^3/ul Absolute Basos (auto) (0-0.2) 10^3/ul Absolute Nucleated RBC 10^3/ul Nucleated RBC % INR (Anticoag Therapy) 0.86 (0.77-1.02) ABG pH (7.35-7.45) ABG pCO2 (35-45) mmHg ABG pO2 (80-100) mmHg ABG HCO3 (19-31) mmol/L ABG O2 Saturation (95-98) % ABG Base Excess (-2.0-2.0) Sodium (135-145) mmol/L Potassium (3.5-5.0) mmol/L Chloride (101-111) mmol/L Carbon Dioxide (22-32) mmol/L Anion Gap (2-11) mmol/L BUN (6-24) mg/dL Creatinine (0.51-0.95) mg/dL Est GFR ( Amer) (>60) Est GFR (Non-Af Amer) (>60) BUN/Creatinine Ratio (8-20) Glucose (70-100) mg/dL Lactic Acid 1.7 (0.5-2.0) mmol/L Calcium (8.6-10.3) mg/dL Magnesium (1.9-2.7) mg/dL Total Bilirubin (0.2-1.0) mg/dL AST (13-39) U/L ALT (7-52) U/L Alkaline Phosphatase (34-104) U/L Troponin I (<0.04) ng/mL B-Natriuretic Peptide 47 ( - 100) pg/mL Total Protein (6.4-8.9) g/dL Albumin (3.2-5.2) g/dL Globulin (2-4) g/dL Albumin/Globulin Ratio (1-3) TSH (0.34-5.60) mcIU/mL Result Diagrams: 03/18/18 18:00 03/18/18 18:00 Lab Statement: Any lab studies that have been ordered have been reviewed, and results considered in the medical decision making process. - Radiology cxr Xray Interpretation: No Acute Changes Radiology Interpretation Completed By: ED Physician - EKG 1 Cardiac Rate: NL EKG Rhythm: Sinus Rhythm ST Segment: Non-Specific Ectopy: None Course/Dx - Course Course Of Treatment: Complaining of CP, SOB starting this afternoon. Patient has history of COPD, not on oxygen. Patient audibly wheezing on arrival. Patient tried a nebulizer at home without relief. Patient was brought by EMS who provided nebulizer 2, nitroglycerin 1, 324 mg of aspirin with no relief. Patient ALSO claims acute on chronic nonproductive cough, vaginal itching. Denies fever, sore throat, N/V/D, abdominal pain, change in urine, change in BM. Medical history COPD. No anti-coag. States stress test one year ago Randal which was negative. Denies estrogen supplements, recent surgery, history of blood clots. Patient audibly wheezing. Alert and oriented, speaking in full sentences. Patient resting comfortably in room. Continues to wheeze after a fourth DuoNeb treatment. ABG PO2 of 72. Vital signs within normal limits and stable. Labs unremarkable. Chest x-ray negative. Discussed patient with Dr. Burdick who recommended discharge home with Rx for prednisone. - Diagnoses Provider Diagnoses: COPD exacerbation, Yeast infection of the vagina Discharge - Sign-Out/Discharge Documenting (check all that apply): Patient Departure - Discharge Plan Condition: Stable Disposition: HOME Prescriptions: predniSONE TAB* [Deltasone 20 MG TAB*] 40 mg PO DAILY 5 Days #5 tab Patient Education Materials: COPD (Chronic Obstructive Pulmonary Disease) (ED) , Yeast Infection (ED) Referrals: No Primary Care Phys,NOPCP [Primary Care Provider] - Additional Instructions: Follow-up with primary care. Return to the ED for any new or worsening symptoms - Billing Disposition and Condition Condition: STABLE Disposition: Home
[2018-03-18] MEDS ORDERED: Fluconazole 100 MG TAB* TAB PO ONE (20:25)
[2018-03-18 20:51] VITALS: BP 152/82
--- NOTE | 2018-03-19 07:12 | RAD ---
INDICATION: Chest pain and shortness of breath. COMPARISON: Comparison is made with a prior study from August 17, 2017. TECHNIQUE: A portable view of the chest was obtained. FINDINGS: Cardiac and mediastinal contours appear to be within normal limits. The lungs are underinflated. There are small infiltrates at both lung bases. No pleural effusion is seen. IMPRESSION: LOW LUNG VOLUMES, SMALL BIBASILAR INFILTRATES. R1
--- NOTE | 2018-03-19 08:42 | PN ---
Progress Note - Progress Note Date of Service: 03/19/18 Note: chest xray read by radiology as IMPRESSION: LOW LUNG VOLUMES, SMALL BIBASILAR INFILTRATES. patient was not placed on antibiotics so will send script for doxycyline bid x5 days. spoke with patient and told of script.
== END 2018-03-18 20:52 | disposition home or self-care (01) ==
LOC: ED 17:05
DX: J44.1 Chronic obstructive pulmonary disease with (acute) exacerbation (principal); B37.3 Candidiasis of vulva and vagina; R07.89 Other chest pain; K21.9 Gastro-esophageal reflux disease without esophagitis; Z88.1 Allergy status to other antibiotic agents; Z88.5 Allergy status to narcotic agent; Z88.0 Allergy status to penicillin; Z88.8 Allergy status to other drugs, medicaments and biological substances; Z91.048 Other nonmedicinal substance allergy status
CPT/HCPCS: 36415; 71045; 80053; 82803; 83605; 83735; 83880; 84443; 84484; 85025; 85610; 93005; 96374; 99284; A9270-GY; J2930

== ENCOUNTER 2018-04-26 13:20 | Observation (INO) | payer MEDICARE, MEDICAID ==
--- OUTSIDE RECORDS SUMMARY | 2018-04-26 13:27 | XMS REPORT | Continuity of Care Document ---
:1960 External Reference #:[id number] Author Name Tacos Bowser MD Address [address] [place] [address] Care Team Providers Name Role Phone Nithya Blanco NP Care Team Information Life Agent Unavailable Nithya Blanco NP Primary Care Physician Unavailable Payers Type Date Identification Numbers Payment Provider Subscriber Expires: Policy Number: [id number] [facility] Eduardo 2014 [place] PayID: [id number] [address] [address] [place] [address] Policy Number: [id number] [place] [employer] [employer] Tess Clark PayID: [id number] [address] [place] [address] Advance Directives Description No Information Available Problems Date Description Provider Status Onset: 04/26/2011 Perforation of tympanic membrane Tacos Bowser MD Active Onset: 04/26/2011 Middle ear conductive hearing loss Tacos Bowser MD Active Onset: 04/26/2011 Dysfunction of eustachian tube Tacos Bowser MD Active Onset: 04/26/2011 Otogenic otalgia Tacos Bowser MD Active Onset: 04/26/2011 Sensorineural hearing loss Tacos Bowser MD Active Family History Date Family Member(s) Problem(s) Comments General Cancer General Diabetes General Hearing Loss General Heart Disease Social History Type Date Description Comments Sex Unknown Occupation [employer] Tobacco Use Start: Unknown Never Smoked Cigarettes Tobacco Use Start: Unknown End: Unknown current.no Tobacco Use Start: Unknown End: Unknown current.no Smokeless Tobacco current.no ETOH Use does not use alcohol Tobacco Use Start: Unknown Patient has never smoked Allergies, Adverse Reactions, Alerts Date Description Reaction Status Severity Comments 05/19/2008 Augmentin Active 09/08/2009 Avelox Active 09/08/2009 Aspirin Active 03/22/2011 Bextra Active 03/22/2011 Tolectin Active 03/21/2012 Opiates Asthma, hives Active 09/04/2012 Morphine Active 09/04/2012 Dilaudid Active 09/04/2012 Nucynta Active 09/04/2012 Avelox Active 09/04/2012 Tolectin Active 09/04/2012 Azithromycin Active Medications Medication Date Status Form Strength Qnty SIG Indications Ordering Provider Albuterol Active Unknown 000 Epipen Active Unknown 000 Calcium 600 + Active Unknown D 000 Duoneb Active Unknown 000 Celebrex Active Unknown 000 Lisinopril Active Unknown 000 Lovastatin Active Unknown 000 Gabapentin Active Unknown 000 Gemfibrozil Active Unknown 000 COPD Inhaler Active as Unknown 000 directed Ofloxacin Hx Solution 0.3% 1bottle 4 drops in Tacos 012 - left ear ECristian Bowser, twice 012 daily for 21 days Zithromax Hx Tablets 250mg 1Pack take as Tacos Z-Gulshan 012 - directed Ishmael Bowser, starting 012 the day after surgery Percocet Hx Tablets 5-325mg 30tabs 1-2 tabs Tacos 012 - by mouth ECristian Bowser, every 4-6 012 hours as needed for pain Floxin Otic Hx Solution 0.3% 10ml 4 drops to 381.81 Tacos 010 - both ears ECristian Bowser, daily for MD 010 3 days Advair Diskus Hx Misc 250/50 90Days 1 puff bid Unknown 000 - 018 Singulair Hx Tablets 10mg 90Days 1 PO qd Unknown 000 - 011 Lipitor Hx Unknown 000 - 011 Cortisporin Hx Solution 10ml 4 gtts to [place] 000 - both ears ECristian Bowser, daily for MD Talbot 3 days Metformin HCL 00/0 Hx Unknown - 016 Celebrex 0 Hx Unknown 011 Pain Medicine 0 Hx Unknown 011 Loratadine 0 Hx Unknown 013 Hydrocodone 0 Hx Unknown 013 Pravachol 0 Hx Unknown 013 Cimetidine 0 Hx Unknown 013 Zofran 0 Hx Unknown 013 Tricor 0 Hx Unknown 013 Vitamin D 0 Hx Unknown 013 Symbicort 0 Hx Unknown 016 Immunizations CPT Code Status Date Vaccine Lot # [id number] Given Unknown Prevnar 13 For Intramuscular Use 54635 Given Unknown Influenza Virus Vaccine, 3 Years Of Age And Above, Intramuscular Vital Signs Date Vital Result Comment 04/10/2018 9:39am Weight 155.00 lb Weight 70.308 kg Height 62.52 inches 5'2.52" Height in cm's 158.8 cm BMI (Body Mass Index) 27.9 kg/m2 11/02/2015 9:06am BP Systolic 163 mmHg BP Diastolic 101 mmHg Heart Rate 91 /min Respiratory Rate 17 /min Weight 155.00 lb Weight 70.308 kg Height 62.52 inches 5'2.52" Height in cm's 158.8 cm BMI (Body Mass Index) 27.9 kg/m2 03/27/2013 9:47am BP Systolic 140 mmHg BP Diastolic 80 mmHg Heart Rate 72 /min Respiratory Rate 16 /min Weight 156.00 lb Weight 70.762 kg Height 62.52 inches 5'2.52" Height in cm's 158.8 cm BMI (Body Mass Index) 28.1 kg/m2 09/04/2012 9:13am BP Systolic 158 mmHg BP Diastolic 86 mmHg Heart Rate 79 /min Respiratory Rate 16 /min Weight 156.00 lb Weight 70.762 kg Height 62.52 inches 5'2.50" Height in cm's 158.8 cm BMI (Body Mass Index) 28.1 kg/m2 04/23/2012 3:07pm BP Systolic 144 mmHg BP Diastolic 88 mmHg Heart Rate 85 /min Respiratory Rate 16 /min Weight 152.00 lb Weight 68.947 kg Height 60.98 inches 5'1" Height in cm's 154.9 cm BMI (Body Mass Index) 28.7 kg/m2 02/28/2012 10:18am BP Systolic 150 mmHg BP Diastolic 90 mmHg Heart Rate 90 /min Respiratory Rate 16 /min Weight 157.00 lb Weight 71.215 kg Height 61 inches 5'1" Height in cm's 154.9 cm BMI (Body Mass Index) 29.7 kg/m2 08/10/2008 1:24pm Heart Rate 86 /min Respiratory Rate 16 /min Weight 156.00 lb Weight 70.762 kg 07/01/2008 11:48am BP Systolic 147 mmHg BP Diastolic 81 mmHg Heart Rate 70 /min Respiratory Rate 16 /min 05/25/2008 1:55pm BP Systolic 138 mmHg BP Diastolic 96 mmHg Heart Rate 105 /min Respiratory Rate 16 /min Results Test Date Facility Test Result H/L Range Note CBC No Diff 03/18/2012 [facility] White Blood 5.8 CUMM 4.8-10.8 1 c/o [facility] [place] [address] [phone] Red Cell Count 5.05 CUMM 4.2-5.4 Hemoglobin 15.1 g/dL 12.0-16.0 Hematocrit 44 % 35-47 Mean Corpuscular Volume 88 um3 79-97 Mean Corpuscular Hemoglob 30 pg 27-31 Mean Corpuscular HGB [facility] 34 g/dL 32-36 Redcell Distribution WDTH 14 % 10.5-15 Platelet Count 211 CUMM 150-450 Mean Platelet Volume 11.2 um3 High 7.4-10.4 Basic Metabolic 03/18/2012 [facility] Sodium 141 mmol/ L 135-145 Panel c/o Department [place] [address] [phone] Potassium 4.5 mmol/L 3.5-5.0 Chloride 107 mmol/L 101-111 Co2 (Carbon Dioxide) 28.0 mmol/L 22-32 Anion Gap 6.0 mmol/L 2-11 2 Glucose 100 mg/dL 70-100 BUN 14 mg/dL 6-24 Creatinine 1.0 mg/dL 0.50-1.40 One Over Creatinine 1.00 BUN/Creatinine Ratio 14.0 8-20 Calcium 10.0 mg/dL High 8.1-9.9 eGFR Non- 58.7 > 60 eGFR 75.5 > 60 3 1 SURGERY DATE IS 03/25/12 2 Anion gap measurement may be of limited value in the presence of any alkalosis, especially in a combined acid base disorder. . 3 Because ethnic data is not always readily [...] Kidney failure <15 (or dialysis) Procedures Date Code Description Status 04/10/2018 80149 Tympanometry Completed 04/10/2018 76189 Comprehensive Audiogram Completed 11/02/2015 73983 Tympanometry Completed 11/02/2015 01664 Comprehensive Audiogram Completed 09/04/2012 72050 Tympanometry Completed 09/04/2012 47914 Comprehensive Audiogram Completed 06/04/2012 80035 Tympanometry Completed 06/04/2012 16536 Comprehensive Audiogram Completed 03/25/2012 61677 Tympanoplasty W/O Mastoidectomy Completed 09/08/2009 90851 Tympanostomy W/Tube Local Or Topical Anes. Completed 08/10/2008 82169 Tympanometry Completed 08/10/2008 08016 Comprehensive Audiogram Completed 08/10/2008 21110 Tympanostomy W/Tube Local Or Topical Anes. Completed 07/01/2008 21217 Tympanostomy W/Tube Local Or Topical Anes. 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 07/29/07 MD Niels sensorineural hearing loss, bilateral Office Visit 11/02/2015 [place],[facility] [place] H90.6 Mixed conductive and 9:00a 07/29/07 MD Niels sensorineural hearing loss, bilateral Office Visit 03/27/2013 [place],[facility] [place] 384.20 Perforation Of 9:45a 07/29/07 MD Niels Tympanic Membrane/Unspecified Office Visit 09/04/2012 [place],[facility] [place] 384.20 Perforation Of 9:00a 07/29/07 MD Niels Tympanic Membrane/Unspecified 389.03 Hearing Loss, Conductive/Middle Ear Office 02/28/2012 [place],[facility] [place] 384.20 Perforation Of Tympanic Visit 10:15a 07/29/07 MD Niels Membrane/Unspecified 389.03 Hearing Loss, Conductive/Middle Ear 272.0 Hypercholesterinemia 380.4 Impacted Cerumen / Wax 250.00 Diabetes, Type II W/Out Metion Of Complication Or Unspec.Typ Office 08/29/2011 [place],[facility] [place] 384.20 Perforation Of Tympanic Visit 1:30p 07/29/07 MD Niels Membrane/Unspecified 389.03 Hearing Loss, Conductive/Middle Ear Office Visit 02/15/2011 [place],[facility] [place] 381.81 Dysfunction Of 4:00p 07/29/07 MD Niels Eustachian Tube 384.20 Perforation Of Tympanic Membrane/Unspecified Office Visit 05/18/2009 [place],[facility] [place] 381.81 Dysfunction Of 11:00a 07/29/07 MD Niesl Eustachian Tube Office Visit 11/10/2008 [place],[facility] [place] 381.81 Dysfunction Of 9:45a 07/29/07 MD Niels Eustachian Tube Office Visit 05/25/2008 [place],[facility] [place] 388.71 Otalgia Otogenic 2:00p 07/29/07 MD Niels Pain 381.81 Dysfunction Of Eustachian Tube 389.10 Hearing Loss, Sensorineural/Unspecified 389.03 Hearing Loss, Conductive/Middle Ear Plan of Treatment No Information Available
--- OUTSIDE RECORDS SUMMARY | 2018-04-26 13:28 | XMS REPORT ---
:1960 External Reference #:[id number] Author Organization [employer] Address [address] [facility] [place] [address] [place] [address] Phone [phone] Care Team Providers Name Role Phone Alexandro Roca NP Primary Care Physician Unavailable Payers Type Date Identification Numbers Payment Provider Subscriber Medicare Primary Effective: Policy Number: Medicare Tess Clark 2011 [id number] PayID: [id number] [address] [place] [address] [facility] Part B Policy Number: [id number] Medicaid Tess Clark PayID: [id number] [address] [place] [address] Problems Date Description Provider Status Onset: 01/15/2017 [...] Form Strength Qnty SIG Indications Ordering Provider Pulmicort 04/09 Active Aerosol 90mcg/Act 3unit inhale one J45.909 Temi Flexhaler s puff by MD Reinaldo mouth twice a day Bevespi 10/07 Active Aerosol 9-4.8mcg/ 17.7g 2 [...] Solution 0.5-2.5(3 60uni 1 vial in Unknown [place]/Albutero /0000 )mg/3ML ts nebulizer l Sulfate three [...] four mcg/Act times a day as needed Ranitidine 150 Active Tablets 150mg one by Unknown Maximum Strength /0000 mouth twice a day Furosemide Active Tablets 20mg take 1 Unknown /0000 tablet by mouth every morning if needed for edema Escitalopram Active Tablets 10mg take 1 Unknown Oxalate /0000 tablet by mouth once daily Vitamin D3 Active Capsules [id number] Unknown /[address] 40mg take 1 Unknown Sodium /0000 tablet by mouth once daily Cyclobenzaprine Active Unknown HCL /0000 Tramadol HCL 10/14 Hx Tablets 50mg 30tab [...] mouth at 02/06 bedtime /2016 Advair Diskus 0000 Hx Unknown /0000 - 01/14 Butrans Hx [...] Unknown /0000 twice a day - 01/14 Advair Diskus 0000 Hx Aerosol 500-50mcg inhale 1 Unknown /0000 /Dose dose by - mouth twice 04/09 /2017 Medications Administered in Office Medication Date Status Form Strength Qnty SIG Indications Ordering Provider Depomedrol Administered Injection Marcelo 80MG 014 Morgan Gamboa Immunizations CPT Code Status Date Vaccine Lot # [id number] Given 05/07/2016 Influenza Virus 3Yrs & Over Vital Signs Date Vital Result Comment 04/09/2018 Height 61 inches 5'1" Weight 155.38 lb Heart Rate 80 /min BP Systolic Sitting 150 mmHg Rue reg cuff BP Diastolic Sitting 84 mmHg Rue reg cuff Respiratory Rate 20 /min O2 % BldC Oximetry 98 % On Ra BMI (Body Mass Index) 29.4 kg/m2 04/01/2018 Height 61 inches 5'1" Weight 155.00 lb Heart Rate 68 /min BP Systolic 160 mmHg BP Diastolic 82 mmHg Respiratory Rate 12 /min Pain Level 9 BMI (Body Mass Index) 29.3 kg/m2 03/05/2018 Height 61 inches 5'1" Heart Rate [...] 60.3 >60 Egfr 77.6 >60 5 1 Ssis Architect: [id number] Ssis Architect: [id number] Ssis Architect: [id number] Specimen Lipemic. Result may not be [...] Procedures Date CPT Code Description Status 10/14/2017 24720 Neuroplasty/Transposition, Ulnar Nerve AT Wrist Completed 10/14/2017 32386 Neuroplasty &/Or Transposition; Ulnar Nerve AT Elbow Completed 10/14/2017 43759 Neuroplasty &/Or Transposition; Ulnar Nerve AT Elbow Completed 05/23/2017 36518 Neuroplasty/Transposition, Ulnar Nerve AT Wrist Completed 05/23/2017 74039 Neuroplasty &/Or Transposition; Ulnar Nerve AT Elbow Completed 05/23/2017 54904 Neuroplasty &/Or Transposition; Ulnar Nerve AT Elbow Completed 03/08/2017 37326 Polysomnography Sleep Staging 4+ Parameters Completed 01/22/2017 57743 Pulmonary Function><Bronchodil Completed 01/22/2017 30026 Plethysmography Determination Lung Volumes & Per Airway Completed Resist 01/22/2017 53364 Diffusing Capacity Completed 05/06/201474018 Inject/Drain Joint/Bursa Major W/O US Completed 04/02/2013 34936 Nerve Conduction 04-07 Studies Completed 04/02/2013 20708 Needle Electromyography Complete, Five Or More Muscles Completed Studied 07/15/2012 28219 Color Flow Doppler/Interp & Reprt Completed 07/15/2012 35372 Pulse Wave/Continuous-Interp.RPT Completed 07/15/2012 44494 ECHO Transthorasic Realtime 2D W Doppler & Color Flow Completed Hosp 05/02/2012 63507 EKG, Interpretation Only Completed Encounters Type Date Location Provider CPT E/M Dx Office Visit 03/05/2018 [facility] [place] [address] G56.22 8:30a C.M.ACristian Office Visit 02/25/2018 [facility] 65178 G57.92 9:00a Ck Mora G57.91 Office Visit 12/26/2017 9:00a [facility] 75207 G57.92 Ck Mora Office Visit 12/03/2017 3:15p [facility] [place] [address] G56.22 C.MCristianACristian S60.212A W19.xxxA Office Visit 10/07/2017 2:30p [facility] [place] [address] J44.1 Services Of Sukhwinder Carmen J45.909 Office Visit 09/04/2017 9:15a [facility] [place] [address] G56.21 DallasMLexy G56.22 Office Visit 08/19/2017 10:04a [facility], Swati Nolasco 66998 R55 Hospitalists D.OCristian R79.89 J45.20 J11.1 Office Visit 08/18/2017 10:03a [facility], Swati Nolasco 17153 R55 Hospitalists D.O. R79.89 J44.1 J45.20 Office Visit 08/06/2017 8:30a [facility] 01696 M54.32 Ck Mora Office Visit 04/18/2017 9:30a [facility] 31609 G57.81 C.Ish Anthony. Office Visit 04/09/2017 2:30p [facility] [place] [address] J45.909 Services Of [facility] Office Visit 02/15/2017 2:15p [facility] 96907 G57.81 C.MLexy MCristianD. Office Visit 02/01/2017 1:30p [facility] [place] [address] G56.21 C.M.A. Office Visit 01/18/2017 8:00a [facility] [place] [address] G56.21 C.M.A. Office Visit 01/15/2017 10:15a [facility] [place] [address] J45.901 Services Of [facility] J30.9 K21.9 R06.83 R51 G47.8 R40.0 J98.11 Office Visit 12/07/2016 2:45p [facility] 06229 G57.81 Of C.Ish Mora Office Visit 11/22/2016 9:00a [facility] 43584 G57.81 Of C.MLexy MIsela Office Visit 04/16/2016 11:20a [facility] Clover Webber, 46968 S63.631D Of CChuyita FLORES-C S63.633D Office Visit 03/05/2016 9:50a [facility] Marcia Baum, 74423 S63.631D Of CChuyita Mora Office Visit 01/19/2016 2:40p [facility] Marcia Baum, 77285 S63.631A Of C.Ish Mora S63.633A Office Visit 10/24/2015 2:49p [facility], Sunil Mccormack, 82970 J45.52 Hospitalists Morgan J10.1 I10 E11.9 Office Visit 10/23/2015 2:38p [facility] [place], [address] J45.52 Assoc, Hospitalists Morgan J10.1 I10 E11.9 Office Visit 11/03/2014 9:35a [facility]oc, Sunil Mccormack, 34278 518.81 Hospitalists M.DCristian 493.92 490 038.9 Office Visit 11/02/2014 9:34a [facility], Sunil Kikokarissa, 94332 518.81 Hospitalists MCristianDCristian 493.92 490 038.9 Office Visit 11/01/2014 9:[facility] Sunil Mccormack, 31936 518.81 Hospitalists MIsela 493.92 490 038.9 Office Visit 10/31/2014 9:34a [facility], Azucenakierra Armendariz, 59857 518.81 Hospitalists M.DCristian 493.92 490 038.9 Office Visit 08/18/2014 8:30a [facility], Sahara Nixon N.P. 68742 482.9 Hospitalists 038.9 401.9 272.4 Office Visit 08/17/2014 8:30a [facility], [place] [address] 482.9 Hospitalists 038.9 401.9 272.4 Office Visit 08/16/2014 8:29a [facility] [place], [address] 482.9 Ass, Hospitalists M.D. 038.9 401.9 272.4 Office Visit 05/06/2014 8:45a [facility] Marcelo Gamboa M.D. 55681 726.10 C.M.A. Office Visit 08/19/2012 1:15p [facility], Андрей Lucero, 68810 995.91 Hospitalists N.P. 493.02 481 250.00 Office Visit 08/18/2012 1:14p [facility], Андрей Lucero, 88508 995.91 Hospitalists N.P. 493.02 481 250.00 Office Visit 08/17/2012 1:14p [facility], Tracie Mills, 49666 995.91 Hospitalists N.P. 493.02 481 250.00 Office Visit 08/16/2012 1:13p [facility], Tracie [place], 38268 995.91 Hospitalists N.P. 493.02 481 250.00 Office Visit 07/17/2012 6:48p [facility] Sunil Kikokarissa, 98840 518.81 Hospitalists Morgan 493.02 466.0 250.90 Office Visit 07/16/2012 6:48p [facility] Azucenakierra Armendariz, 85931 518.81 Hospitalists Morgan 493.02 466.0 Office Visit 07/15/2012 6:47p [facility] Azucena Armendariz, 54754 518.81 Hospitalists Morgan 493.02 466.0 Office Visit 07/14/2012 6:47p [facility] Chelsea Adela, 81787 518.81 Assoc, Hospitalists Morgan 493.02 466.0 250.90 Office Visit 05/05/2012 7:27a [facility] Swati Nolasco, 04930 493.02 Hospitalists D.O. 995.91 401.9 Office Visit 05/04/2012 7:26a [facility] Assoc, Swati Nolasco, 81827 493.02 Hospitalists D.O. 995.91 401.9 Office Visit 05/03/2012 7:26a [facility] Luis Newell M.D. 20784 493.02 Hospitalists 995.91 401.9 Office Visit 05/02/2012 7:25a [facility],pc Luis Newell M.D. 47564 493.02 Hospitalists 995.91 401.9 Office Visit 03/02/2009 12:30a [facility] Donal Aguilera, 12821 493.92 Assoc, Hospitalists Morgan Office Visit 03/01/2009 12:15a [facility] Chelsea Adela, 92984 493.92 Assoc, Hospitalists Morgan Plan of Care Future Appointment(s):10/08/2018 9:15 am - Temi Najera MD at [facility] Services Of [facility]07/01/2018 8:40 am - Alexandro Roca NP at [facility] Internal Medicine [facility]04/09/2018 - Temi Najera MDJ45.909 Unspecified asthma, uncomplicatedNew Medication:Pulmicort Flexhaler 90 mcg/ActFollow up:6 lqugnmT28.9 Chronic obstructive pulmonary disease, unspecified
--- OUTSIDE RECORDS SUMMARY | 2018-04-26 13:28 | XMS REPORT ---
:1960 External Reference #:[id number] Author Organization [employer] Address [address] [place] [address] [place] [address] Phone [phone] Care Team Providers Name Role Phone Nithya Blanco FNP Primary Care Physician Unavailable Payers Type Date Identification Numbers Payment Provider Subscriber Medicare Primary Effective: Policy Number: Medicare Tess Clark 2011 [id number] PayID: [id number] [address] [place] [address] [facility] Part B Policy Number: [id number] Medicaid Tess Clark PayID: [id number] [address] [place] [address] Problems Date Description Provider Status Onset: 01/15/2017 [...] Solution 0.5-2.5(3 60uni 1 vial in Unknown [place]/Albutero /0000 )mg/3ML ts nebulizer l Sulfate three [...] mouth once daily Vitamin D3 Active Capsules 02853Kztn Unknown /[address] 40mg [...] CPT Code Status Date Vaccine Lot # [id number] Given 05/07/2016 Influenza Virus 3Yrs & Over Vital Signs Date Vital Result Comment 04/01/2018 Height 61 inches 5'1" Weight 155.00 [...] 60.3 >60 Egfr 77.6 >60 5 1 Securities Trader: [id number] Securities Trader: [id number] Securities Trader: [id number] Specimen Lipemic. Result may not be [...] Procedures Date CPT Code Description Status 10/14/2017 18948 Neuroplasty/Transposition, Ulnar Nerve AT Wrist Completed 10/14/2017 08312 Neuroplasty &/Or Transposition; Ulnar Nerve AT Elbow Completed 10/14/2017 55351 Neuroplasty &/Or Transposition; Ulnar Nerve AT Elbow Completed 05/23/2017 50651 Neuroplasty/Transposition, Ulnar Nerve AT Wrist Completed 05/23/2017 15561 Neuroplasty &/Or Transposition; Ulnar Nerve AT Elbow Completed 05/23/2017 49813 Neuroplasty &/Or Transposition; Ulnar Nerve AT Elbow Completed 03/08/2017 81620 Polysomnography Sleep Staging 4+ Parameters Completed 01/22/2017 84947 Pulmonary Function><Bronchodil Completed 01/22/2017 93235 Plethysmography Determination Lung Volumes & Per Airway Completed Resist 01/22/2017 16601 Diffusing Capacity Completed 05/06/2014 39002 Inject/Drain Joint/Bursa Major W/O US Completed 04/02/2013 32783 Nerve Conduction 09-10 Studies Completed 04/02/2013 90843 Needle Electromyography Complete, Five Or More Muscles Completed Studied 07/15/2012 05870 Color Flow Doppler/Interp & Reprt Completed 07/15/2012 35227 Pulse Wave/Continuous-Interp.RPT Completed 07/15/2012 89786 ECHO Transthorasic Realtime 2D W Doppler & Color Flow Completed Hosp 05/02/2012 50080 EKG, Interpretation Only Completed Encounters Type Date Location Provider CPT E/M Dx Office Visit 03/05/2018 [facility] [place] [address] G56.22 8:30a C.M.A. Office Visit 02/25/2018 [facility] 36647 G57.92 9:00a C.MLexy Mora G57.91 Office Visit 12/26/2017 9:00a [facility] 77539 G57.92 C.MLexy MRicco. Office Visit 12/03/2017 3:15p [facility] [place] [address] G56.22 C.M.A. S60.212A W19.xxxA Office Visit 10/07/2017 2:30p [facility] [place] [address] J44.1 Services Of [facility] Nella J45.909 Office Visit 09/04/2017 9:15a [facility] [place] [address] G56.21 C.M.ACristian G56.22 Office Visit 08/19/2017 10:04a [facility], Swati Nolasco, 88174 R55 Hospitalists D.O. R79.89 J45.20 J11.1 Office Visit 08/18/2017 10:03a [facility], Swati Nolasco, 28560 R55 Hospitalists D.O. R79.89 J44.1 J45.20 Office Visit 08/06/2017 8:30a [facility] 92078 M54.32 C.M.ACristian MRicco. Office Visit 04/18/2017 9:30a [facility] 11060 G57.81 C.M.A. MRicco. Office Visit 04/09/2017 2:30p [facility] [place] [address] J45.909 Services Of [facility] Office Visit 02/15/2017 2:15p [facility] 81930 G57.81 C.M.A. MRicco. Office Visit 02/01/2017 1:30p [facility] [place] [address] G56.21 C.M.A. Office Visit 01/18/2017 8:00a [facility] [place] [address] G56.21 C.M.ACristian Office Visit 01/15/2017 10:15a [facility] [place] [address] J45.901 Services Of [employer] J30.9 K21.9 R06.83 R51 G47.8 R40.0 J98.11 Office Visit 12/07/2016 2:45p [facility] 70934 G57.81 Of CChuyita Mora Office Visit 11/22/2016 9:00a [facility] 61505 G57.81 Of CChuyita Mora Office Visit 04/16/2016 11:20a [facility] Clover Webber 29831 S63.631D Of Ck SIERRA S63.633D Office Visit 03/05/2016 9:50a [facility] Marcia Baum 28835 S63.631D Of Ck Mora Office Visit 01/19/2016 2:40p [facility] Marcia Baum, 30938 S63.631A Of Ck Mora S63.633A Office Visit 10/24/2015 2:49p [facility], Sunil Mccormack, 53114 J45.52 Hospitalists Morgan J10.1 I10 E11.9 Office Visit 10/23/2015 2:38p [facility] [place], [address] J45.52 Assoc, Hospitalmadeleine Mora J10.1 I10 E11.9 Office Visit 11/03/2014 9:35a [facility], Sunil Mccormack, 55053 518.81 Hospitalists Morgan 493.92 490 038.9 Office Visit 11/02/2014 9:34a [facility], Sunil Mccormack, 86541 518.81 Hospitalists MIsela 493.92 490 038.9 Office Visit 11/01/2014 9:34a [facility], Sunil Mccormack, 33601 518.81 Hospitalists Morgan 493.92 490 038.9 Office Visit 10/31/2014 9:34a [facility], Azucena Armendariz, 28467 518.81 Hospitalists MIsela 493.92 490 038.9 Office Visit 08/18/2014 8[facility] Sahara Nixon N.P. 65143 482.9 Hospitalists 038.9 401.9 272.4 Office Visit 08/17/2014 8:30a [facility], [place], GERIATRIC ASSISTANT 91715 482.9 Hospitalists 038.9 401.9 272.4 Office Visit 08/16/2014 8:29a [facility], 01042 482.9 Assoc, Hospitalists MIsela 038.9 401.9 272.4 Office Visit 05/06/2014 8:45a [facility] Marcelo Gamboa M.D. 00278 726.10 C.M.A. Office Visit 08/19/2012 1:15p [facility], Андрей Lucero, 96821 995.91 Hospitalists N.P. 493.02 481 250.00 Office Visit 08/18/2012 1:14p [facility], Андрей Lucero, 27611 995.91 Hospitalists N.P. 493.02 481 250.00 Office Visit 08/17/2012 1:14p [facility], Tracie [place], 82768 995.91 Hospitalists N.P. 493.02 481 250.00 Office Visit 08/16/2012 1:13p [facility], Tracie Mills, 34421 995.91 Hospitalists N.P. 493.02 481 250.00 Office Visit 07/17/2012 6:48p [facility] Sunil Mccormack, 19675 518.81 Hospitalists MIsela 493.02 466.0 250.90 Office Visit 07/16/2012 6:48p [facility], Azucena Armendariz, 04061 518.81 Hospitalists MIsela 493.02 466.0 Office Visit 07/15/2012 6:47p [facility], Azucena Armendariz, 90027 518.81 Hospitalists MIsela 493.02 466.0 Office Visit 07/14/2012 6:47p [facility] Chelsea Chapman, 19903 518.81 Assoc, Hospitalists Morgan 493.02 466.0 250.90 Office Visit 05/05/2012 7:27a [facility] Assoc,pc Swati Nolasco, 57680 493.02 Hospitalists D.O. 995.91 401.9 Office Visit 05/04/2012 7:26a [facility]oc,pc Swati Nolasco, 79633 493.02 Hospitalists D.O. 995.91 401.9 Office Visit 05/03/2012 7:26a [facility], Luis Newell M.D. 43166 493.02 Hospitalists 995.91 401.9 Office Visit 05/02/2012 7:25a [facility] Luis Newell M.D. 59225 493.02 Hospitalists 995.91 401.9 Office Visit 03/02/2009 12:30a [facility] Donal Aguilera, 41505 493.92 Assoc, Hospitalmadeleine Mora Office Visit 03/01/2009 12:15a [facility] Chelsea Chapman, 31315 493.92 Assoc, Hospitalists Morgan Plan of Care Future Appointment(s):04/09/2018 9:00 am - Temi Najera MD at Pulmonology And Sleep Services [facility]04/01/2018 - Андрей Fisher M.D.G57.91 Unspecified mononeuropathy of right lower limbNew Therapy:Physical TherapyReferral:Marcos Tan MD, NeurologyFollow up:As needed
[2018-04-26 14:08] LABS: ABS Basophils 0.1 10^3/ul (0-0.2); ABS Eosinophils 0.1 10^3/ul (0-0.6); ABS Lymphocytes 1.5 10^3/ul (1.0-4.8); ABS Monocytes 0.5 10^3/ul (0-0.8); ABS Neutrophils 6.3 10^3/ul (1.5-7.7); ABS Nucleated RBC 0 10^3/ul; Eosinophil % 1.3 % (0-6); Hematocrit 42 % (35-47); Hemoglobin 14.2 g/dl (12.0-16.0); Lymphocyte % 17.7 % (25-47); Mean Corpuscular HGB Conc 34 g/dl (31-36); Mean Corpuscular Hemoglobin 29 pg (27-31); Mean Corpuscular Volume 88 fL (80-97); Mean Platelet Volume 10.5 um3 (7.4-10.4); Nucleated Red Blood Cells % 0.1; Platelet Count 206 10^3/ul (150-450); Red Blood Count 4.81 10^6/ul (4.00-5.40); Red Cell Distribution Width 14 % (10.5-15); White Blood Count 8.5 10^3/ul (3.5-10.8)
--- NOTE | 2018-04-26 14:13 | RAD ---
HISTORY: syncope COMPARISONS: August 10, 2017 TECHNIQUE: Multiple contiguous axial CT scans were obtained of the head without intravenous contrast. FINDINGS: HEMORRHAGE/INFARCT: There is no hemorrhage or acute infarct. MASSES/SHIFT: There is no mass or shift. EXTRA-AXIAL SPACES: There are no extra-axial fluid collections. SULCI AND VENTRICLES: The sulci and ventricles are normal in size and position for the patient's stated age. CEREBRUM: There are no focal parenchymal abnormalities. BRAINSTEM: There are no focal parenchymal abnormalities. CEREBELLUM: There are no focal parenchymal abnormalities. VESSELS: The vessels are grossly normal. PARANASAL SINUSES: The paranasal sinuses are clear. ORBITS: The orbits are unremarkable. BONES AND SOFT TISSUE: No bone or soft tissue abnormalities are noted. OTHER: None IMPRESSION: NO ACUTE INTRACRANIAL PATHOLOGY.
[2018-04-26 14:30] LABS: EGFR Non-African American 47.7 (>60)
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
[2018-04-26 14:50] LABS: Urine Appearance Cloudy; Urine Blood Negative (Negative); Urine Color Yellow; Urine Ketones Negative (Negative); Urine Protein Negative (Negative); Urine Red Blood Cell Absent (Absent); Urine Specific Gravity 1.013 (1.010-1.030); Urine Urobilinogen Negative (Negative); Urine White Blood Cell Trace(0-5/hpf) (Absent)
--- NOTE | 2018-04-26 14:55 | RAD ---
HISTORY: syncope COMPARISONS: March 18, 2018 VIEWS: 4: Frontal dual-energy and lateral views of the chest. FINDINGS: CARDIOMEDIASTINAL SILHOUETTE: The cardiomediastinal silhouette is normal. ROB: The rob are normal. PLEURA: The costophrenic angles are sharp. No pleural abnormalities are noted. LUNG PARENCHYMA: The lungs are clear. ABDOMEN: The upper abdomen is clear. There is no subphrenic gas. BONES AND SOFT TISSUES: Degenerative changes are noted along the spine. OTHER: None. IMPRESSION: NO ACTIVE CARDIOPULMONARY DISEASE.
[2018-04-26] MEDS ORDERED: Al Hydrox/Mg Hydrox/Simet LIQ* 30 ML UDC PO PRN (16:52)
[2018-04-26] MEDS ORDERED: Albuterol 2.5 MG/3 ML NEB.SOL* (0.083%) INH PRN ×2 (16:52→16:56)
[2018-04-26] MEDS ORDERED: Ondansetron INJ* 2 MG/ML VIAL IV PRN (16:52)
[2018-04-26] MEDS: Mometasone 220 MCG MDI INH SCH (20:31)
[2018-04-26] MEDS: Atorvastatin* 10 MG TAB PO SCH (21:17)
[2018-04-26] MEDS: Heparin VIAL(*) 5000 UNITS/ML VIAL (FIVE THOUSAND) SUBCUT SCH (21:18)
--- NOTE | 2018-04-27 00:48 | HP ---
CC: Alexandro Roca NP * HISTORY AND PHYSICAL: DATE OF ADMISSION: 04/26/18 PROVIDER: Brandie Jung NP. PRIMARY CARE PROVIDER: Alexandro Roca NP ATTENDING PHYSICIAN WHILE IN THE HOSPITAL: Dr. Kevon Mccormack * (dictated by Brandie Jung NP). CHIEF COMPLAINT: Syncope. HISTORY OF PRESENT ILLNESS: Ms. Clark is a 58-year-old female with a past medical history significant for asthma, COPD, degenerative disk disease, GERD, type 2 diabetes, hypertension, hyperlipidemia, and osteoarthritis, who presented to the emergency room with a syncopal episode. The patient states that she was feeling in her normal state of health. States that she was sitting on the floor in her house watching her work in the house and the reports he saw her start leaning and then the patient passed out. He denied any head injury or neck injury. He reports that she just slumped to the side. He states that she passed out for approximately 2 to 3 minutes and when she came to, she was slow to respond. After several minutes she did vomit after the syncopal episode. She does report being lightheaded and dizzy after the syncopal episode which has subsided since admission to the emergency room. She denied any recent illnesses.The patient denies any fever or chills. Denies any chest pain. Denies any shortness of breath. Denies any hemoptysis or cough. Denies any nausea, vomiting, or abdominal pain. She denies any diarrhea. She denies any gross hematuria, dysuria. Denies any focal weakness or sensory loss. Denies any visual complaints. Denies any dysphagia, arthralgias or myalgias. Denies any rashes or lesions. While in the emergency room she had routine lab work drawn and a CT of the head which was within normal limits with no acute intracranial pathology. Given her syncopal episode, we were asked to see and evaluate her for admission. PAST MEDICAL HISTORY: Significant for: 1. Asthma/COPD. 2. Degenerative disk disease. 3. GERD. 4. Type 2 diabetes. 5. Hypertension. 6. Hyperlipidemia. 7. Osteoarthritis. PAST SURGICAL HISTORY: 1. Left ear surgery. 2. Left ulnar nerve release. 3. Tubal ligation. MEDICATIONS: Home medications include: 1. Ranitidine 150 mg p.o. q.h.s. 2. Singulair 10 mg p.o. daily. 3. Lovastatin 20 mg p.o. daily. 4. Ibuprofen 800 mg p.o. b.i.d. p.r.n. pain. 5. Fenofibrate 160 mg p.o. daily. 6. EpiPen as needed for allergic reaction. 7. Calcium plus D 500/125 one tablet p.o. daily. 8. Albuterol 2 puffs inhaled q. 4 hours as needed for shortness of breath and albuterol nebs one q. 12 hours as needed for shortness of breath. 9. Protonix 40 mg p.o. daily. 10. Pulmicort 1 puff b.i.d. ALLERGIES TO MEDICATIONS: She is allergic to: 1. ADHESIVE TAPE. 2. AMOXICILLIN. 3. AZITHROMYCIN. 4. AUGMENTIN. 5. HYDROMORPHONE. 6. MORPHINE. 7. AVELOX. 8. NUCYNTA. 9. TOLMETIN. 10. BEXTRA. 11. Perfumes. FAMILY HISTORY: Mom at the age of 79 of CVA. Dad with unknown history. SOCIAL HISTORY: The patient currently denies any smoking. Denies any alcohol or illicit drug use. She is . Surrogate decision maker in the event she is unable to make her own decisions is her , Bruce Clark. His phone number is [phone]. She is a full code. REVIEW OF SYSTEMS: There is no documented fever. There has been no significant weight change. There is no double vision. There is no ear discharge. Denies any rhinorrhea or sore throat. No chest pain. Denies orthopnea or nocturnal dyspnea. There was no abdominal pain. No nausea. She did vomit x1 after her syncopal episode. Denies any dysuria or urinary frequency. No seizures. She does report a syncopal episode lasting 2 to 3 minutes with a brief period of dizziness and lightheadedness postsyncopal episode. Denies any pruritus or skin ulcerations. A review of 14 systems was completed, all others are negative. PHYSICAL EXAMINATION GENERAL: At this time, Ms. Clark is a 58-year-old female. She appears alert and oriented, sitting on the stretcher in the emergency room. She does not appear to be in any acute distress. VITAL SIGNS: Blood pressure was 150/82, heart rate was 84, respirations are 19 , O2 saturation was 96%-97% on room air, and temperature was 98.7. HEENT: Head is atraumatic, normocephalic. Eyes: EOMs are intact. Pupils are equal and reactive to light, 2 mm. Sclerae anicteric, not pale. Oral mucosa appears to be moist. No oropharyngeal erythema. NECK: Supple. LUNGS: Clear to auscultation bilaterally. No wheezes, rales, or rhonchi. CARDIAC: S1, S2. Regular rate and rhythm. No murmurs, rubs, or gallops. ABDOMEN: Soft and nontender. Bowel sounds are present x4. EXTREMITIES: Pulses are +2 bilaterally. She is able to move her bilateral upper extremities with 5/5 strength and left lower extremity with 5/5 strength. She does have some diminished strength in the right lower extremity which is chronic for her. She does wear braces on bilateral ankles for support. NEUROLOGIC: She is awake, alert, and oriented x3. Handgrips are equal. Tongue is midline. Speech is clear. Shoulder shrug is intact. [id number] is intact. Sensation is intact. Cranial nerves II through XII are intact. There is no gross focal deficits. SKIN: Intact. DIAGNOSTIC STUDIES AND LABORATORY DATA: WBCs were 8.5, RBCs 4.81, hemoglobin 14.2, hematocrit was 42, platelet count was 206. Sodium 144, potassium 4.1, chloride was 111, carbon dioxide was 26. Anion gap was 7. BUN was 17, creatinine 1.17 which is her baseline. Glucose was 121. Calcium 8.6. Magnesium was 1.8. TSH was 2.65. Urine was positive for leukocyte esterase +1, urine squamous epithelial cells were present and hyaline casts were present, was negative for bacteria, nitrites, and protein. She had a CT of the brain which showed no acute intracranial pathology. She had a chest x-ray which showed no active cardiopulmonary disease. She had an electrocardiogram, which showed sinus rhythm at a rate of 77. ASSESSMENT AND PLAN: Ms. Clark is a 58-year-old female patient who presented to the emergency room today after a syncopal episode. We were asked to see and evaluate her due to her syncope. She will admitted under observation. 1. Syncopal episode. I will obtain a transthoracic echocardiogram. I will get orthostatic vital signs. We will monitor on telemetry overnight. The patient is asymptomatic at this time. 2. Hypertension. She is currently not on any home medications for hypertension. 3. Hyperlipidemia. She will continue on her fenofibrate and lovastatin. 4. Gastroesophageal reflux disease. She will continue on pantoprazole and ranitidine at night. 5. Deep vein thrombosis prophylaxis: I will place her on heparin subcu. 6. FEN: She can have a heart-healthy, caffeine-okay diet. 7. Code status: She is a full code. TIME SPENT: Time spent on this admission was approximately 60 minutes, greater than half of that time was spent with the patient [id number] obtaining my history and physical, the other half of the time was spent going over my plan of care and implementing my plan of care. I have discussed this with my attending, Dr. Kevon Mccormack, he is in agreement with my plan. BRANDIE JUNG, MARC [id number]/CPS #: [id number] MARISSA
[2018-04-27 05:31] LABS: ABS Basophils 0.1 10^3/ul (0-0.2); ABS Eosinophils 0.1 10^3/ul (0-0.6); ABS Lymphocytes 2.5 10^3/ul (1.0-4.8); ABS Monocytes 0.5 10^3/ul (0-0.8); ABS Neutrophils 3.5 10^3/ul (1.5-7.7); ABS Nucleated RBC 0 10^3/ul; Hematocrit 43 % (35-47); Hemoglobin 14.2 g/dl (12.0-16.0); Lymphocyte % 37.4 % (25-47); Mean Corpuscular HGB Conc 33 g/dl (31-36); Mean Corpuscular Hemoglobin 29 pg (27-31); Mean Corpuscular Volume 88 fL (80-97); Mean Platelet Volume 10.6 um3 (7.4-10.4); Nucleated Red Blood Cells % 0.1; Platelet Count 195 10^3/ul (150-450); Red Blood Count 4.88 10^6/ul (4.00-5.40); Red Cell Distribution Width 14 % (10.5-15); White Blood Count 6.7 10^3/ul (3.5-10.8)
[2018-04-27] MEDS: Heparin VIAL(*) 5000 UNITS/ML VIAL (FIVE THOUSAND) SUBCUT SCH ×3 (05:38→22:02)
[2018-04-27 05:47] LABS: EGFR Non-African American 56.5 (>60)
[2018-04-27] MEDS: Montelukast Sodium TAB* 10 MG PO SCH (08:48)
[2018-04-27] MEDS: Omeprazole CAP* 20 MG PO SCH (08:48)
[2018-04-27] MEDS ORDERED: FENOFIBRATE 160 MG PO SCH ×2 (09:00→15:00)
[2018-04-27] MEDS ORDERED: Perflutren Lipid Microsphere* 3 ML VIAL ONE (12:15)
[2018-04-27] MEDS: Acetaminophen TAB* 325 MG PO PRN (13:33)
--- NOTE | 2018-04-27 16:58 | PN ---
Subjective Date of Service: 04/27/18 Interval History: HOSPITALIST PROGRESS NOTE Patient seen and examined at bedside. Care reviewed and d/w Rosemarie Castillo RN. She feels better today, denies complaints. Has had syncopal episodes in the past , usually related to dehydration - last in September when she had the Flu. Family History: Unchanged from Admission Social History: Unchanged from Admission Past Medical History: Unchanged from Admission Objective Active Medications: Acetaminophen (Tylenol Tab*) 650 mg PO Q4H PRN PRN Reason: FEVER/PAIN Last Admin: 04/27/18 13:33 Dose: 650 mg Al Hydrox/Mg Hydrox/Simethicone (Maalox Plus*) 30 ml PO Q6H PRN PRN Reason: INDIGESTION Albuterol (Ventolin 2.5 Mg/3 Ml Neb.Ariadna*) 2.5 mg INH [id number] AWAKE PRN PRN Reason: sob/wheezing Albuterol (Ventolin 2.5 Mg/3 Ml Neb.Ariadna*) 2.5 mg INH Q12HR PRN PRN Reason: SOB/WHEEZING Atorvastatin Calcium (Lipitor*) 5 mg PO BEDTIME GARIMA; Protocol Last Admin: 04/26/18 21:17 Dose: 5 mg Fenofibrate (Tricor(Nf)) 160 mg PO DAILY@1500 G[facility]IMA Last Admin: 04/27/18 16:34 Dose: 160 mg Heparin Sodium (Porcine) (Heparin Vial(*)) 5,000 units SUBCUT Q8HR GARIMA Last Admin: 04/27/18 13:29 Dose: 5,000 units Mometasone Furoate (Asmanex 220 Mcg Mdi *) 1 puff INH BEDTIME GARIMA Last Admin: 04/26/18 20:31 Dose: 1 puff Montelukast Sodium (Singulair Tab*) 10 mg PO QAM [facility] Last Admin: 04/27/18 08:48 Dose: 10 mg Omeprazole (Prilosec Cap*) 20 mg PO DAILY@0730 [facility] Last Admin: 04/27/18 08:48 Dose: 20 mg Ondansetron HCl (Zofran Inj*) 4 mg IV Q4H PRN PRN Reason: NAUSEA/VOMITING Vital Signs - 8 hr 04/27/18 04/27/18 08:57 12:20 Temperature 97.5 F 98.1 F Pulse Rate 80 71 Respiratory 16 14 Rate Blood Pressure 138/73 139/77 (mmHg) O2 Sat by Pulse 98 97 Oximetry Oxygen Devices in Use Now: None Appearance: Pleasant lady sitting up in bed in NAD. Has 3 18oz Mountain Dew bottles on her bedside table. Eyes: No Scleral Icterus Ears/Nose/Mouth/Throat: Mucous Membranes Moist Neck: Trachea Midline Respiratory: Symmetrical Chest Expansion and Respiratory Effort, Clear to Auscultation Cardiovascular: NL Sounds; No Murmurs; No JVD, RRR Neurological: Alert and Oriented x 3, NL Muscle Strength and Tone Result Diagrams: 04/27/18 05:25 04/27/18 05:25 Additional Lab and Data: Lab Results 04/26/18 04/26/18 Range/Units 13:56 13:56 WBC 8.5 (3.5-10.8) 10^3/ul RBC 4.81 (4.00-5.40) 10^6/ul Hgb 14.2 (12.0-16.0) g/dl Hct 42 (35-47) % MCV 88 (80-97) fL MCH 29 (27-31) pg MCHC 34 (31-36) g/dl RDW 14 (10.5-15) % Plt Count 206 (150-450) 10^3/ul MPV 10.5 H (7.4-10.4) um3 Neut % (Auto) 74.0 (38-83) % Lymph % (Auto) 17.7 L (25-47) % [place] % (Auto) 6.4 (0-7) % Eos % (Auto) 1.3 (0-6) % Baso % (Auto) 0.6 (0-2) % Absolute Neuts (auto) 6.3 (1.5-7.7) 10^3/ul Absolute Lymphs (auto) 1.5 (1.0-4.8) 10^3/ul Absolute Monos (auto) 0.5 (0-0.8) 10^3/ul Absolute Eos (auto) 0.1 (0-0.6) 10^3/ul Absolute Basos (auto) 0.1 (0-0.2) 10^3/ul Absolute Nucleated RBC 0 10^3/ul Nucleated RBC % 0.1 Sodium 144 (135-145) mmol/L Potassium 4.1 (3.5-5.0) mmol/L Chloride 111 (101-111) mmol/L Carbon Dioxide 26 (22-32) mmol/L Anion Gap 7 (2-11) mmol/L BUN 17 (6-24) mg/dL Creatinine 1.17 H (0.51-0.95) mg/dL Est GFR ( Amer) 57.7 (>60) Est GFR (Non-Af Amer) 47.7 (>60) BUN/Creatinine Ratio 14.5 (8-20) Glucose 121 H (70-100) mg/dL Calcium 8.6 (8.6-10.3) mg/dL Magnesium 1.8 L (1.9-2.7) mg/dL Total Bilirubin 0.50 (0.2-1.0) mg/dL AST 22 (13-39) U/L ALT 22 (7-52) U/L Alkaline Phosphatase 67 (34-104) U/L Troponin I 0.00 (<0.04) ng/mL Total Protein 6.1 L (6.4-8.9) g/dL Albumin 4.1 (3.2-5.2) g/dL Globulin 2.0 (2-4) g/dL Albumin/Globulin Ratio 2.1 (1-3) TSH Pending Assess/Plan/Problems-Billing Assessment: Mrs Clark is a 58yo F with PMH of Asthma/COPD, HLD, type 2 DM, GERD, HTN, DJD, who presented to ED after a syncopal episode. - Patient Problems (1) Syncope Comment: - Suspect secondary to dehydration, as her creatinine was mildly elevated. Patient states she drinks a lot of liquids, but they are coffee and Mountain Dew. - Orthostatics were negative today. - No significant arrhythmias so far. - Awaiting echo. - Enc[place]raged to increase PO water intake. (2) Asthma Comment: - Stable. - Continue bronchodilators, inhaled steroids, and Montelukast. (3) Non-insulin dependent type 2 diabetes mellitus Comment: - Not on any therapy at this time. - Non fasting glucose ~120. - Check A1c. (4) HLD (hyperlipidemia) Comment: - Continue Atorvastatin and Fenofibrate. (5) DVT prophylaxis Comment: SQ heparin (6) Full code status Status and Disposition: OBV. Anticipate d/c in AM if echo WNL.
[2018-04-27] MEDS: Atorvastatin* 10 MG TAB PO SCH (22:02)
[2018-04-27] MEDS: Mometasone 220 MCG MDI INH SCH (22:38)
[2018-04-28] MEDS: Acetaminophen TAB* 325 MG PO PRN ×2 (00:11→09:22)
[2018-04-28] MEDS: Heparin VIAL(*) 5000 UNITS/ML VIAL (FIVE THOUSAND) SUBCUT SCH (05:33)
--- NOTE | 2018-04-28 08:22 | ECHO ---
Patient: MARIE ZHOU [facility] Rec#: [id number] : 1960 Date: 04/27/2018 Age: 58y Height: 155 cm / 61.0 in Weight: 70.7 kg / 155.8 lbs Sex: F BSA: 1.7 Room#: [facility] Admit Date#: 04/26/2018 Type: Inpatient Referring: Brandie Jung Reading: Pankaj Dean MD Tester [employer]ocket Engine: Brenda Napier RN RDCS Transthoracic Echocardiogram Indication: Syncope BP: 123/62 HR: 70 Rhythm: NSR Findings History: HTN, HLD, DM, asthma Technical Comments: The study is technically limited due to patient body habitus. The study is technically limited due to the patient's smoking history. Left Ventricle: The left ventricular chamber size is normal. Mild global hypokinesis of the left ventricle is observed. Left ventricular systolic function is at the lower limits of normal. The estimated ejection fraction is 50-55%. There is an E to A reversal in the mitral valve flow pattern suggestive of diastolic dysfunction. Left Atrium: The left atrial chamber size is normal. Right Ventricle: The right ventricular cavity size is normal. The right ventricular global systolic function is normal. Right Atrium: The right atrial cavity size is normal. Aortic Valve: The aortic valve is trileaflet. The aortic valve leaflets are mildly thickened. There is no evidence of aortic regurgitation. There is no evidence of aortic stenosis. Mitral Valve: The mitral valve leaflets are mildly thickened. There is trace to mild mitral regurgitation. There is no evidence of mitral stenosis. Tricuspid Valve: The tricuspid valve leaflets are normal. There is trace tricuspid regurgitation. Unable to estimate the right ventricular systolic pressure. There is no tricuspid stenosis. Pulmonic Valve: The pulmonic valve appears normal. There is a trace pulmonic regurgitation. There is no pulmonic stenosis. Pericardium: A trivial pericardial effusion is visualized. A pericardial fat pad is visualized. Aorta: There is no dilatation of the ascending aorta. The aortic arch is not well visualized. There is no dilation of the aortic root. Pulmonary Artery: The main pulmonary artery appears normal. Venous: The venous system is not well visualized. The inferior vena cava is not visualized. Contrast: Definity was used to optimize study. A total of 4 ml of diluted Definity was given IV. Conclusions Mild global hypokinesis of the left ventricle is observed. Left ventricular systolic function is at the lower limits of normal. The estimated ejection fraction is 50-55%. The right ventricular global systolic function is normal. There is no evidence of aortic stenosis. There is trace to mild mitral regurgitation. There is trace tricuspid regurgitation. Unable to estimate the right ventricular systolic pressure. A trivial pericardial effusion is visualized. Compared to study of 07/15/12, the LV function is slightly lower Measurements Name Value Normal Range RVIDd (AP) 2D 2.4 cm (0.9 - 2.6) RVDdMajor (2D) 2.6 cm (2.2 - 4.4) RAd ISD 4CH 3.7 cm (3.4 - 4.9) RA (A4C)W 3.2 cm (2.9 - 4.6) IVSd (2D) 1 cm (0.6 - 1) LVPWd (2D) 0.9 cm (0.6 - 1) LVIDd (2D) 4.6 cm (3.6 - 5.4) LVIDs (2D) 3.1 cm - LV FS (2D) 33 % (25 - 45) Aortic Annulus 1.8 cm (1.4 - 2.6) Ao root diameter (2D) 2.7 cm (2.1 - 3.5) Ascending Ao 2.7 cm (2.1 - 3.4) LA dimension (AP) 2D 3.4 cm (2.3 - 3.8) LAd ISD 4CH 4.1 cm (2.9 - 5.3) LA ISD 4CH W 3.8 cm (2.5 - 4.5) Name Value Normal Range LA ESV BP (A/L) index 20.3 ml/m2 - Name Value Normal Range MV E-wave Vmax 0.61 m/sec - MV deceleration time 194 msec - MV A-wave Vmax 0.92 m/sec - MV E:A ratio 0.7 ratio - LV septal e' Vmax 0.05 m/sec - LV lateral e' Vmax 0.07 m/sec - LV E:e' septal ratio 12.2 ratio - LV E:e' lateral ratio 8.7 ratio - Name Value Normal Range AV Vmax 1 m/sec - AV VTI 24.9 cm - AV peak gradient 4 mmHg - AV mean gradient 3 mmHg - LVOT Vmax 0.82 m/sec - LVOT VTI 17.6 cm - LVOT peak gradient 3 mmHg - LVOT mean gradient 2 mmHg - Name Value Normal Range PV Vmax 0.75 m/sec -
[2018-04-28] MEDS: Montelukast Sodium TAB* 10 MG PO SCH (08:55)
[2018-04-28] MEDS: Omeprazole CAP* 20 MG PO SCH (08:55)
[2018-04-28] MEDS ORDERED: FENOFIBRATE 160 MG PO SCH (09:00)
[2018-04-28 09:30] VITALS: BP 127/72
--- NOTE | 2018-04-29 16:14 | DS ---
CC: Alexandro Roca NP * DISCHARGE SUMMARY: DATE OF ADMISSION: 04/26/18 DATE OF DISCHARGE: 04/28/18 PRIMARY CARE PROVIDER: Alexandro Roca NP DISCHARGE DIAGNOSIS: Syncopal episode, likely secondary to dehydration. SECONDARY DIAGNOSES: 1. Chronic obstructive pulmonary disease. 2. Degenerative disk disease. 3. Gastroesophageal reflux disease. 4. Hypertension. 5. Hyperlipidemia. MEDICATION LIST: 1. Albuterol 2.5 nebulized q.12 hours p.r.n. shortness of breath and wheezing. 2. Albuterol HFA 1 puff inhaled q.4 hours p.r.n. shortness of breath and wheezing. 3. Pulmicort Flexhaler 90 mcg 1 puff inhaled b.i.d. 4. Calcium plus vitamin D 1 tablet p.o. q.a.m. 5. EpiPen p.r.n. anaphylaxis. 6. Fenofibrate 160 mg p.o. q.a.m. 7. Ibuprofen 800 mg p.o. t.i.d. p.r.n. pain. 8. Lovastatin 20 mg p.o. q.a.m. 9. Montelukast 10 mg p.o. q.a.m. 10. Pantoprazole 40 mg p.o. daily. 11. Ranitidine 150 mg p.o. q.p.m. HOSPITAL COURSE: Ms. Clark is a 58-year-old lady with past medical history as stated above that presented to the emergency room after a syncopal episode. She states she was on her usual state of health, sitting on the floor, watching her work in the house, and the describes that she started leaning to the side and passed out. She was described as slumping to the side. For more details about her presentation, I refer you to her history and physical. The patient did have admissions in the past with syncope associated with dehydration in the setting of flu. She had no significant arrhythmias on telemetry. Troponin was negative. An echocardiogram was a limited study due to the patient's body habitus and the patient's smoking history and ejection fraction was 50% to 55% with mild global hypokinesis of the left ventricle. Right ventricle global systolic function was normal. No aortic stenosis. Ahfjn-hy-smzamrsu MR, trace TR, trivial pericardial effusion, and compared to an echo from 2012, the LV function was slightly lower. On admission, the patient had slight elevation of her creatinine suggestive of dehydration. I asked the patient if she hydrate at home and she states she drinks a lot of liquid but most of it are caffeinated beverages including coffee and Mountain Dew. The patient was advised to try to drink more water. She remained asymptomatic while in the hospital and she is medically stable for discharge today. PHYSICAL EXAMINATION: Vital Signs: Temperature , heart rate is 69, respiratory rate is 20, oxygen saturation 97% on room air, blood pressure is 127 /72. General: The patient is a pleasant lady, sitting up in bed, in no acute distress. CVS: Normal S1, S2. Regular rate and rhythm. Chest: Breath sounds bilaterally with no added sounds. Neuro: She is alert and oriented x3. Able to move all 4 extremities. DIET: Heart-healthy diet. ACTIVITIES: As tolerated. DISPOSITION: To home. STATUS WHILE IN THE HOSPITAL: Observation. Please keep in mind this is a summarized version of the patient's hospital stay. If you need more information, please feel free to call me at [phone] or please obtain full medical records. TIME SPENT: Approximately 45 minutes was spent to complete this discharge. [id number]/CPS #: [id number] MARISSA
== END 2018-04-28 12:00 | disposition home or self-care (01) ==
LOC: ED 13:20 → MEDTELE 16:52
PROVIDERS: ADMIT Internal Medicine; ATTEND Internal Medicine
DX: R55 Syncope and collapse (principal); E86.0 Dehydration; J44.9 Chronic obstructive pulmonary disease, unspecified; K21.9 Gastro-esophageal reflux disease without esophagitis; I10 Essential (primary) hypertension; E78.5 Hyperlipidemia, unspecified; E11.9 Type 2 diabetes mellitus without complications; Z79.899 Other long term (current) drug therapy; Z88.0 Allergy status to penicillin; Z88.1 Allergy status to other antibiotic agents; Z88.5 Allergy status to narcotic agent; Z88.8 Allergy status to other drugs, medicaments and biological substances; R94.31 Abnormal electrocardiogram [ECG] [EKG]
CPT/HCPCS: 36415; 70450; 71045; 80048; 80053; 81003; 81015; 83735; 84443; 84484; 85025; 87086; 93005; 93306; 94640; 96372; 99284; A9270-GY; C8929; G0378; J1644

== ENCOUNTER 2018-08-21 17:34 | Inpatient (IN) | payer MEDICARE, MEDICAID ==
[2018-08-21] MEDS ORDERED: methylPREDNISolone 125 MG* 2 ML VIAL IV ONE (17:44)
[2018-08-21] MEDS ORDERED: Albuterol 0.5% CONC NEB.SOL* 5 MG/ML 20 ml BOT INH ONE (17:44)
--- NOTE | 2018-08-21 17:46 | ED ---
Shortness of Breath - HPI Summary HPI Summary: Patient is a 58 y/o F presenting to ED with complaints of increasing SOB over the past week. She has also been experiencing increased congestion, cough as well. Cough is reported to have been present for the past four weeks. She reports some chest tightness in room. Audible wheezing is heard. Patient had flu shot this year, unsure of fever, states that she has been having cold Sx for the past few days. EMS reports patient was 94 o2 on RA, was given first neb , which improved o2 to 96. EMS gave two nebs overall, one duoneb, one albuterol. BP was 170/112 per EMS. PMHx of COPD, HTN, diabetes, asthma, GERD. Patient took her medications today, she is not on medications for diabetes. PSHx of tubal ligation. Patient states she never smoked, no alcohol consumption , no recreational drug usage. PCP is Alexandro Roca NP. No Hx of AL, patient had sepsis previously. No home O2, patient has inhalers and nebs at home. She states that she used two nebulizers at home. Patient does not wear BiPAP or CPAP at night. FMHx of asthma is reported. On triage, pain is denied, nothing is noted to aggravate/alleviate Sx. In room, pulse is 100, BP 184/107, o2 96 on RA. Home medications and allergies are reviewed. Allergies Allergy/AdvReac Type Severity Reaction Status Date / Time Adhesive Tape Allergy Mild Rash Verified 04/26/18 13:34 amoxicillin [From Augmentin] Allergy Rash Verified 04/26/18 13:34 azithromycin Allergy Rash And Verified 04/26/18 13:34 Itching clavulanic acid Allergy Rash Verified 04/26/18 13:34 [From Augmentin] hydromorphone [From Dilaudid] Allergy Rash Verified 04/26/18 13:34 morphine Allergy Difficulty Verified 04/26/18 13:34 Breathing moxifloxacin [From Avelox] Allergy Rash Verified 04/26/18 13:34 tapentadol [From Nucynta] Allergy Rash Verified 04/26/18 13:34 tolmetin [From Tolectin] Allergy Rash Verified 04/26/18 13:34 valdecoxib [From Bextra] Allergy Rash Verified 04/26/18 13:34 PERFUMES Allergy Severe DYSPNEA Uncoded 12/02/17 11:27 Home Medications Glycopyrrolate/Formoterol Fum [Bevespi Aerosphere Inhaler] 08/21/18 [History] Glycopyrrolate/Formoterol Fum [Bevespi Aerosphere Inhaler] 08/21/18 [History] Lisinopril 10 mg PO DAILY 08/21/18 [History Confirmed 08/21/18] - History of Current Complaint Hx Obtained From: Patient, EMS Onset/Duration: Lasting Weeks - increasing SOB over the past week. She has also been experiencing increased congestion, cough as well. Cough is reported to have been present for the past four weeks., Still Present, Worse Since Timing: Constant Current Severity: Severe - SOB, no CP Dyspnea At: Rest Aggrevating Factors: Nothing Alleviating Factors: Nothing Associated Signs & Symptoms: Cough (Nonproductive), Wheezing - Allergy/Home Medications Allergies/Adverse Reactions: Allergies Allergy/AdvReac Type Severity Reaction Status Date / Time Adhesive Tape Allergy Mild Rash Verified 04/26/18 13:34 amoxicillin [From Augmentin] Allergy Rash Verified 04/26/18 13:34 azithromycin Allergy Rash And Verified 04/26/18 13:34 Itching clavulanic acid Allergy Rash Verified 04/26/18 13:34 [From Augmentin] hydromorphone [From Dilaudid] Allergy Rash Verified 04/26/18 13:34 morphine Allergy Difficulty Verified 04/26/18 13:34 Breathing moxifloxacin [From Avelox] Allergy Rash Verified 04/26/18 13:34 tapentadol [From Nucynta] Allergy Rash Verified 04/26/18 13:34 tolmetin [From Tolectin] Allergy Rash Verified 04/26/18 13:34 valdecoxib [From Bextra] Allergy Rash Verified 04/26/18 13:34 PERFUMES Allergy Severe DYSPNEA Uncoded 12/02/17 11:27 Home Medications: Home Medications Glycopyrrolate/Formoterol Fum [Bevespi Aerosphere Inhaler] 08/21/18 [History] Glycopyrrolate/Formoterol Fum [Bevespi Aerosphere Inhaler] 08/21/18 [History] Lisinopril 10 mg PO DAILY 08/21/18 [History Confirmed 08/21/18] PMH/Surg Hx/FS Hx/Imm Hx Endocrine/Hematology History: Reports: Hx Diabetes - no meds Denies: Hx Anticoagulant Therapy, Hx Blood Disorders, Hx Blood Transfusions, Hx Bone Marrow Disease, Hx Systemic Lupus Erythematosus, Hx Sickle Cell Disease , Hx Thyroid Disease, Hx Anemia, Hx Unexplained Bleeding Cardiovascular History: Reports: Hx Hypercholesterolemia, Hx Hypertension Denies: Hx Aneurysm, Hx Angina, Hx Angioplasty, Hx Auto Implanted Cardiovert Defib, Hx Cardiac Arrest, Hx Cardiomegaly, Hx Congenital Heart Disease, Hx Congestive Heart Failure, Hx Coronary Artery Disease, Hx Deep Vein Thrombosis, Hx Pacemaker/ICD, Hx Peripheral Vascular Disease, Hx Rheumatic Fever, Hx Syncope , Hx Valvular Heart Disease Respiratory History: Reports: Hx Asthma - USES INHALERS, Hx Chronic Bronchitis, Hx Chronic Obstructive Pulmonary Disease (COPD), Hx Pneumonia, Hx Seasonal Allergies Denies: Hx Cystic Fibrosis, Hx Lung Cancer, Hx Pleural Effusion, Hx Pulmonary Edema, Hx Pulmonary Embolism, Hx Sleep Apnea GI History: Reports: Hx Diverticulosis, Hx Gastroesophageal Reflux Disease - ON MEDICATION FOR STATES CONTROLLED, Other GI Disorders - CHRONIC CONSTIPATION Denies: Hx Ulcer History: Denies: Hx Acute Renal Failure, Hx Benign Prostatic Hyperplasia, Hx Chronic Renal Failure, Hx Dialysis, Hx Kidney Infection, Hx Kidney Stones, Hx Renal Disease, Other Problems/Disorders Musculoskeletal History: Reports: Hx Arthritis, Hx Back Problems, Hx Bursitis, Hx Osteoporosis, Hx Scoliosis, Hx Tendonitis, Other Musculoskeletal History - DEGENERATIVE DISC DISEASE Denies: Hx Rheumatoid Arthritis, Hx Congenital Bone Abnormalities, Hx Fibromyalgia, Hx Gout, Hx Orthopedic Injury Sensory History: Reports: Hx Contacts or Glasses - GLASSES, Hx Hearing Problem Denies: Hx Cataracts, Hx Eye Injury, Hx Eye Prosthesis, Hx Glaucoma, Hx Macular Degeneration, Hx Vision Problem, Hx Deafness, Hx Hearing Aid, Other Sensory Impairments Opthamlomology History: Reports: Hx Contacts or Glasses - GLASSES Denies: Hx Cataracts, Hx Eye Injury, Hx Eye Prosthesis, Hx Glaucoma, Hx Macular Degeneration, Hx Vision Problem, Other Sensory Impairments Neurological History: Reports: Hx Headaches - reportedly d/t degenerative disc disease Denies: Hx Dementia Psychiatric History: Denies: Hx Anxiety, Hx Attention Deficit Hyperactivity Disorder, Hx Eating Disorder, Hx Depression, Hx Panic Disorder, Hx Post Traumatic Stress Disorder, Hx Inpatient Treatment, Hx Community Mental Health Tx, Hx Schizophrenia, Hx Bipolar Disorder, Hx Suicide Attempt, Hx Substance Abuse, Other Psychiatric Issues/Disorders - Cancer History Hx Chemotherapy: No Hx Radiation Therapy: No Hx Palliative Cancer Treatment: No - Surgical History Surgery Procedure, Year, and Place: TUBAL LIGATION in 1988. hole in ear closed. tonsils as a child. RIGHT ULNAR NERVE TRANSPOSITON 05/14 [facility] [facility]. ulnar nerve repair Hx Anesthesia Reactions: No - Immunization History Date of Influenza Vaccine: fall 2017 Infectious Disease History: Reports: Hx of Known/Suspected MRSA, Hx Shingles - [id number], History Other Infectious Disease - influenza A Denies: Hx Clostridium Difficile, Hx Hepatitis, Hx Human Immunodeficiency Virus (HIV), Hx Tuberculosis - Family History Known Family History: Positive: Cardiac Disease, Hypertension, Diabetes, Respiratory Disease - asthma - Social History Lives: With Family Alcohol Use: None Hx Substance Use: No Substance Use Type: Reports: None Hx Tobacco Use: No Smoking Status (MU): Never Smoked Tobacco Have You Smoked in the Last Year: No Review of Systems Positive: Other - POSITIVE - CONGESTION, COLD SX Positive: Chest Pain - tightness attributed to wheezing Positive: Shortness Of Breath, Cough, Other - POSITIVE - WHEEZING Gastrointestinal: Negative Positive: no symptoms reported Musculoskeletal: Negative Skin: Negative Neurological: Negative Psychological: Normal All Other Systems Reviewed And Are Negative: Yes Physical Exam - Summary Physical Exam Summary: Appearance: Ill-appearing, no pain distress, well-nourished Skin: Warm, color reflects adequate perfusion, dry Head: Normal Head/Face inspection, atraumatic Eyes: Conjunctiva clear, ENT: Normal inspection Neck: Supple, no nodes, no JVD Respiratory: Bilateral expiratory wheezes, wheezes are audible without stethoscope, she is speaking in short bursts Cardio: RRR, No murmur, pulses normal, brisk capillary refill Abdomen: Soft, nontender Bowel sounds: Present Musculoskeletal: Strength Intact/ROM intact, no calf tenderness, no edema. Psychological: Normal Neuro: Alert, muscle tone normal, no focal deficit Triage Information Reviewed: Yes Vital Signs On Initial Exam: Initial Vitals Temp Pulse Resp BP Pulse Ox 99.6 F 114 32 184/107 98 08/21/18 17:48 08/21/18 17:48 08/21/18 17:48 08/21/18 17:48 08/21/18 17:48 Vital Signs Reviewed: Yes Diagnostics - Laboratory Result Diagrams: 08/21/18 17:10 08/21/18 17:10 Lab Statement: Any lab studies that have been ordered have been reviewed, and results considered in the medical decision making process. - Radiology CXR Radiology Interpretation Completed By: ED Physician Summary of Radiographic Findings: Hypoventilation and bibasilar infiltrate. Preliminary reading - EKG 1752 Cardiac Rate: NL - rate of 95 BPM EKG Rhythm: Sinus Rhythm ST Segment: Non-Specific Ectopy: PVCs - one EKG Comparison: No Significant Change - compared to 04/26/18 Summary of EKG Findings: EKG showed sinus rhythm with rate of 95 BPM, nml AVIVCT , nml QTc, nml axis. One PVC is noted. Non-specific ST. No acute changes. No significant changed compared to 04/26/18 Re-Evaluation - Re-Evaluation First Eval Re-Evaluation Time: 19:05 Change: Unchanged Comment: Bilateral expiratory wheezes, wheezes are still audible, she is speaking in short bursts. Admission was discussed, patient is agreeable with admission. CXR was discussed. Hx of PNA. Vitals are o2 97 on RA, BP 145/114, pulse 119. No Hx of blood clot. Bruce, ex- is present. Course/Dx - Course Course Of Treatment: Patient is a 58 y/o F presenting to ED with complaints of increasing SOB over the past week. She has also been experiencing increased congestion, cough as well. Cough is reported to have been present for the past four weeks. She reports some chest tightness in room. Audible wheezing is heard. Patient had flu shot this year, unsure of fever, states that she has been having cold Sx for the past few days. EMS reports patient was 94 o2 on RA, was given first neb, which improved o2 to 96. EMS gave two nebs overall, one duoneb, one albuterol. BP was 170/112 per EMS. PMHx of COPD, HTN, diabetes, asthma, GERD. Patient took her medications today, she is not on medications for diabetes. PSHx of tubal ligation,tonsillectomy, ulnar nerve surg. Patient states she never smoked, no alcohol consumption, no recreational drug usage. PCP is Alexandro Roca NP. No Hx of AL, patient had sepsis previously. No home o2, patient has inhalers and nebs at home. She states that she used two nebulizers at home. Patient does not wear Bipap or Cpap at night. FMHx of asthma is reported. On triage, pain is denied, nothing is noted to aggravate/alleviate Sx. In room, pulse is 100, BP 184/107, o2 96 on RA. On physical exam, bilateral expiratory wheezes, wheezes are audible without stethoscope, she is speaking in short bursts. Labs showed creatinine 1.18, lactic acid 1.6, trop 0 , CRP 4.43, WBC 7.5. CXR showed hypoventilation and bibasilar infiltrate. EKG showed sinus rhythm with rate of 95 BPM, nml AVIVCT, nml QTc, nml axis. One PVC is noted. Non-specific ST. No acute changes. No significant changed compared to 04/26/18. During ED course, patient received Solu-Medrol 125 mg IV ED ONCE and continuous albuterol 1 ml INH .RATE = 10 MG/HR ONE, and an additional duoneb without relief of SOB and wheezing. Bilateral expiratory wheezes, wheezes are still audible, she is speaking in short bursts. Admission was discussed, patient is agreeable with admission. CXR was discussed. Hx of PNA. Vitals are O2 97% on RA, BP 145/114, pulse 119. No Hx of blood clots. Bruce, ex- is present. Patient's case was discussed with Dr. Jain at 191, Dr. Jain accepts patient for admission, asks for ABG be ordered - Diagnoses Differential Diagnosis/HQI/PQRI: Positive: CHF, COPD Exacerbation, Pneumonia, Pulmonary Embolism Provider Diagnoses: COPD exacerbation, SIRS (systemic inflammatory response syndrome), Hypertension , poor control - Physician Notifications Discussed Care of Patient With: Poly Jain Time Discussed With Above Provider: 19:10 Instructed by Provider To: Other - Patient's case was discussed with Dr. Jain at 1910, Dr. Jain accepts patient for admission, asks for ABG be ordered Discharge - Sign-Out/Discharge Documenting (check all that apply): Patient Departure - admit All imaging exams completed and their final reports reviewed: Yes - Discharge Plan Condition: Stable Disposition: ADMITTED TO [facility] - Billing Disposition and Condition Condition: STABLE Disposition: Admitted to [facility] - Attestation Statements Document Initiated by Scribe: Yes Documenting Scribe: SARAH AVILA Provider For Whom Scribe is Documenting (Include Credential): WALLY RICHMOND MD Scribe Attestation: SARAH Davis , scribed for WALLY RICHMOND MD on 08/23/18 at 0157. Scribe Documentation Reviewed: Yes Provider Attestation: The documentation as recorded by the scribeSARAH accurately reflects the service I personally performed and the decisions made by me, WALLY RICHMOND MD Status of Scribe Document: Viewed
[2018-08-21] MEDS ORDERED: Albuterol 0.5% CONC NEB.SOL* 5 MG/ML 20 ml BOT ONE (17:50)
[2018-08-21 18:16] LABS: ABS Basophils 0.1 10^3/ul (0-0.2); ABS Eosinophils 0.2 10^3/ul (0-0.6); ABS Monocytes 0.6 10^3/ul (0-0.8); ABS Neutrophils 3.6 10^3/ul (1.5-7.7); ABS Nucleated RBC 0 10^3/ul; Eosinophil % 2.3 %; Hematocrit 46 % (35-47); Hemoglobin 15.6 g/dl (12.0-16.0); Lymphocyte % 40.3 %; Mean Corpuscular HGB Conc 34 g/dl (31-36); Mean Corpuscular Hemoglobin 29 pg (27-31); Mean Corpuscular Volume 88 fL (80-97); Mean Platelet Volume 10.3 fL (7.4-10.4); Nucleated Red Blood Cells % 0; Platelet Count 227 10^3/ul (150-450); Red Cell Distribution Width 14 % (10.5-15); White Blood Count 7.5 10^3/ul (3.5-10.8)
[2018-08-21 18:24] LABS: INR 0.82 (0.77-1.02)
--- OUTSIDE RECORDS SUMMARY | 2018-08-21 18:28 | XMS REPORT | Continuity of Care Document ---
:1960 External Reference #:[id number] Author Name VazquezKaitlin lerma Care Team Providers Name Role Phone Nancie Egan MD Primary Care Physician Unavailable Payers Type Date Identification Numbers Payment Provider Subscriber Policy Number: [id number] Medicare Tess Clark PayID: [id number] [address] [place] [address] Policy Number: [id number] Medicaid Tess Davenportt PayID: [id number] [address] [place] [address] Effective: 2011 Policy Number: [id number] Medicare Tess Clark Expires: 2018 PayID: [id number] [address] [place] [address] Advance Directives Description No Information Available Problems Date Description Provider Status Onset: 01/15/2017 Asthma without status asthmaticus Temi Najera MD Active Onset: 01/15/2017 Allergic rhinitis Temi Najera MD Active Onset: 01/15/2017 Gastroesophageal reflux disease Temi Najera MD Active Onset: 01/15/2017 Other sleep disorders Temi Najera MD Active Onset: 09/04/2017 Lesion of ulnar nerve Андрей Hadley MD Active Onset: 05/09/2018 Syncope and collapse Robert Ortega MD Active Onset: 05/09/2018 Chronic obstructive lung disease Robert Ortega MD Active Onset: 05/09/2018 Hyperlipidemia Robert Ortega MD Active Onset: 05/09/2018 Essential hypertension Robert Ortega MD Active Onset: 06/09/2018 Screening for malignant neoplasm of colon Robert Ortega MD Active Onset: 06/09/2018 Type 2 diabetes mellitus Robert Ortega MD Active Family History Date Family Member(s) Problem(s) Comments General Cancer General Diabetes General Hypertension Father Unknown Mother Seizure Disorder Mother Cerebrovascular Accident (CVA) Mother Diabetes Social History Type Date Description Comments Sex Unknown Marital Status Lives With granddaughter Occupation Disabled Tobacco Use Start: Unknown Never Smoked Cigarettes Smoking Status Reviewed: 07/31/18 Never Smoked Cigarettes ETOH Use Denies alcohol use Tobacco Use Start: Unknown Patient has never smoked Recreational Drug Use Denies Drug Use Exercise Type/Frequency Does not exercise Allergies, Adverse Reactions, Alerts Date Description Reaction Status Severity Comments 05/06/2014 Augmentin Active 05/06/2014 Avelox Active 05/06/2014 Dilaudid Active 05/06/2014 Morphine Active 05/06/2014 Nucynta Active 05/09/2018 Bextra Active 05/09/2018 Azithromycin Active Mild rash 05/09/2018 Adhesive Active rash 05/09/2018 Tolmetin Active Severe Medications Medication Date Status Form Strength Qnty SIG Indications Ordering Provider Lisinopril 07/31 Active Tablets 10mg 30tab 1 by mouth I10 Alexandro /2019 s every day MARC Roca Donut Pillow 07/31 Active 1unit For use M53.3 Alexandro /2018 s when MARC Roca sitting Cardizem CD 07/08 Active Caps ER 120mg 120ca 2 by mouth I10 Tracie S. /2017 24HR ps every day Gene N.PCristian Lovastatin 07/06 Active Tablets 40mg 30tab by mouth Alexandro /2017 s every night MARC Roca at bedtime Blood Pressure 07/01 Active Misc 1unit check bp I10 Alexandro Monitor Auto /2017 s three times MARC Roca Inflate weekly at home Freestyle Lite 06/09 Active Device 1unit for blood E11.9 Robert Ortega Blood Glucose /2017 s glucose Monitoring monitoring System once daily for diabetes mellitus Blood Pressure 06/09 Active Kit 1unit check twice R55 Robert Ortega Kit /2017 s a day for hypertensio n and record in a log book Pulmicort 04/09 Active Aerosol 90mcg/Act 3unit inhale one J45.909 Temi Flexhaler /2017 s puff by MD Reinaldo mouth twice a day Albuterol Active Nebulizer (2.5mg/3M 100un 1 vial via Unknown Sulfate /0000 L) 0.083% its nebulizer 4 times daily as needed Epipen 2-Gulshan Active Solution 0.3mg/0.3 1unit use as Unknown Auto-Injec ML s directed t Ipratropium Active Solution 0.5-2.5(3 60uni 1 vial in Unknown [employer]/Albutero /0000 )mg/3ML ts nebulizer l Sulfate three times a day as needed for asthma Montelukast Active Tablets 10mg 1 by mouth Unknown Sodium / every day Ventolin HFA Active Aerosol 108(90Bas 1unit 2 puffs by Unknown / e) s mouth four mcg/Act times a day as needed Ranitidine 150 Active Tablets 150mg one by Unknown Maximum Strength / mouth twice a day Pantoprazole Active Tablets DR 40mg take 1 Unknown Sodium tablet by mouth once daily Fenofibrate Active Tablets 160mg 1 by mouth Unknown / every day Isosorbide Active Tablets ER 60mg 1 by mouth Unknown Mononitrate ER / 24HR every day Bevespi Active Aerosol 9-4.8mcg/ 2 puffs Unknown Aerosphere / Act inhalation twice daily. Lisinopril 07/01 Hx Tablets 5mg 30tab 1 by mouth I10 Alexandro s every day MARC Roca - 07/31 Tramadol HCL 10/14 Hx Tablets 50mg 30tab 1-2 tablets s by mouth MD Leonie - every 6 04/09 hours as needed pain Bevespi 10/07 Hx Aerosol 9-4.8mcg/ 17.7g 2 puffs J44.1 Tracie S. Aerosphere Act m inhalation Gene, - twice N.P. 05/07 daily. Tramadol 05/23 Hx Tablets 37.5-325m 30tab 1-2 tab by Андрей Patino/Davy g s mouth every MD Leonie etaminophen - 4-6 hours 09/04 as needed Tramadol HCL 05/23 Hx Tablets 50mg 30tab 1-2 tabs by Marcia s mouth every Baum, - 4-6 hours M.D. 09/04 as needed for pain Ranitidine HCL 01/15 Hx Tablets 150mg 30tab take one K21.9 s tablet by MD Reinaldo - mouth at 02/06 bedtime Advair Diskus /00 Hx Unknown /0000 - 01/14 Butrans Hx Patches 10mcg/HR 4unit topical Unknown /0000 Weekly s q7days - 01/17 Calcium 500+D Hx daily Unknown /0000 - 06/04 Celebrex Hx Capsules 200mg 30cap 1 by [...] twice a day - 01/14 Advair Diskus Hx Aerosol 500-50mcg inhale 1 Unknown /0000 /Dose dose by - mouth twice 04/09 a day /2017 Furosemide Hx Tablets 20mg take 1 Unknown /0000 tablet by - mouth every 05/07 morning if needed for edema Escitalopram Hx Tablets 10mg take 1 Unknown Oxalate /0000 tablet by - mouth once 05/07 daily 2018 Vitamin D3 00 Hx Capsules [id number] Unknown /0000 - 07/07 Cyclobenzaprine Hx Unknown HCL /0000 - 05/07 Medications Administered in Office Medication Date Status Form Strength Qnty SIG Indications Ordering Provider Inj, Administered Injection Jason Lewis Regadenoson, 018 DO Reece 0.1 MG FACC Technetium TC Administered Injection Jason Lewis 99M 018 DO Reece Tetrofosmin, FACC Per Unit Dose Up To 40 Millicuries Depomedrol Administered Injection Marcelo 80MG Clark Gamboa M.D. Immunizations CPT Code Status Date Vaccine Lot # [id number] Given 07/01/2018 Influenza Virus Vaccine, Quadrivalent, Split, [id number] Preservative Free [id number] Given 05/07/2016 Influenza Virus 3Yrs & Over Vital Signs Date Vital Result Comment 07/31/2018 9:02am Height 61 inches 5'1" Weight 151.00 lb Heart Rate 88 /min BP Systolic Sitting 142 mmHg BP Diastolic Sitting 88 mmHg O2 % BldC Oximetry 98 % BMI (Body Mass Index) 28.5 kg/m2 07/15/2018 12:26pm Weight 160.00 lb with shoes and leg braces on Heart Rate 74 /min BP Systolic 152 mmHg Lue, reg cuff BP Diastolic 90 mmHg Lue, reg cuff BP Systolic Sitting 152 mmHg Lue, reg cuff BP Diastolic Sitting 94 mmHg Lue, reg cuff Respiratory Rate 12 /min Pain Level 0 07/08/2018 10:45am Height 61 inches 5'1" Weight 160.00 lb with boots and braces Heart Rate 70 /min BP Systolic Sitting 120 mmHg lue reg cuff BP Diastolic Sitting 70 mmHg lue reg cuff BP Systolic Standing 118 mmHg lue reg cuff BP Diastolic Standing 70 mmHg lue reg cuff BMI (Body Mass Index) 30.2 kg/m2 Ejection Fraction 50-55% echo.04/27/18 07/01/2018 8:53am Height 61 inches 5'1" Weight 157.00 lb Heart Rate 72 /min BP Systolic 158 mmHg BP Diastolic 95 mmHg BP Systolic Recheck 148 mmHg BP Diastolic Recheck 94 mmHg O2 % BldC Oximetry 99 % BMI (Body Mass Index) 29.7 kg/m2 06/09/2018 10:09am Height 61 inches 5'1" Weight 161.50 lb Heart Rate 72 /min BP Systolic Sitting 140 mmHg BP Diastolic Sitting 90 mmHg Body Temperature 98.5 F O2 % BldC Oximetry 98 % at rest on room air BMI (Body Mass Index) 30.5 kg/m2 06/05/2018 1:14pm Height 61 inches 5'1" Heart Rate 96 /min reg BP Systolic 130 mmHg sitting reg cuff Ra BP Diastolic 80 mmHg sitting reg cuff Ra BP Systolic Sitting 135 mmHg sittting reg cuff LA. BP Diastolic Sitting 84 mmHg sittting reg cuff LA. Pain Level 98 w/oximeter Ejection Fraction 50-55% 04/27/18 echo 05/09/2018 10:55am Weight 161.00 lb Heart Rate 72 /min BP Systolic 160 mmHg Rue BP Diastolic 94 mmHg Rue BP Systolic Sitting 158 mmHg Lue BP Diastolic Sitting 90 mmHg Lue Respiratory Rate 16 /min Body Temperature 98.6 F Pain Level 9 everywhere O2 % BldC Oximetry 98 % 04/09/2018 8:34am Height 61 inches 5'1" Weight 155.38 lb Heart Rate 80 /min BP Systolic Sitting 150 mmHg Rue reg cuff BP Diastolic Sitting 84 mmHg Rue reg cuff Respiratory Rate 20 /min O2 % BldC Oximetry 98 % On Ra BMI (Body Mass Index) 29.4 kg/m2 04/01/2018 10:18am Height 61 inches 5'1" Weight 155.00 lb Heart Rate 68 /min BP Systolic 160 mmHg BP Diastolic 82 mmHg Respiratory Rate 12 /min Pain Level 9 BMI (Body Mass Index) 29.3 kg/m2 03/05/2018 8:34am Height 61 inches 5'1" Heart Rate 79 /min BP Systolic 118 mmHg BP Diastolic 78 mmHg Respiratory Rate 16 /min Body Temperature 98.6 F Pain Level 8 02/25/2018 8:56am Height 61 inches 5'1" Weight 152.00 lb Heart Rate 80 /min BP Systolic 160 mmHg BP Diastolic 82 mmHg Respiratory Rate 12 /min Pain Level 10 BMI (Body Mass Index) 28.7 kg/m2 12/26/2017 9:01am Height 61 inches 5'1" Weight 152.00 lb BP Systolic 122 mmHg BP Diastolic 67 mmHg Respiratory Rate 16 /min Pain Level 7 BMI (Body Mass Index) 28.7 kg/m2 12/03/2017 3:35pm Height 61 inches 5'1" Weight 152.00 lb Heart Rate 60 /min BP Systolic 140 mmHg BP Diastolic 76 mmHg Respiratory Rate 16 /min Body Temperature 98.6 F Pain Level 8 BMI (Body Mass Index) 28.7 kg/m2 11/13/2017 9:00am Height 61 inches 5'1" Weight 152.00 lb Heart Rate 90 /min Respiratory Rate 16 /min Pain Level 2 BMI (Body Mass Index) 28.7 kg/m2 11/06/2017 9:09am Height 61 inches 5'1" Weight 142.00 lb Heart Rate 90 /min Respiratory Rate 16 /min Pain Level 10 BMI (Body Mass Index) 26.8 kg/m2 10/25/2017 11:17am Height 61 inches 5'1" Weight 154.00 lb Heart Rate 93 /min Respiratory Rate 14 /min Body Temperature 97.5 F Pain Level 8 BMI (Body Mass Index) 29.1 kg/m2 10/07/2017 2:36pm Height 61 inches 5'1" Weight 154.56 lb Heart Rate 88 /min BP Systolic Sitting 150 mmHg Rue regular cuff BP Diastolic Sitting 90 mmHg Rue regular cuff Respiratory Rate 16 /min O2 % BldC Oximetry 98 % BMI (Body Mass Index) 29.2 kg/m2 10/01/2017 1:25pm Height 61 inches 5'1" Weight 153.00 lb Heart Rate 91 /min BP Systolic 130 mmHg BP Diastolic 82 mmHg Respiratory Rate 16 /min Body Temperature 98.1 F Pain Level 7 BMI (Body Mass Index) 28.9 kg/m2 09/04/2017 9:30am Height 61 inches 5'1" Weight 153.00 lb Heart Rate 71 /min Respiratory Rate 14 /min Body Temperature 98.9 F Pain Level 5 BMI (Body Mass Index) 28.9 kg/m2 08/06/2017 8:37am Height 61 inches 5'1" Weight 153.00 lb Heart Rate 82 /min Respiratory Rate 20 /min Body Temperature 98.2 F Pain Level 10 BMI (Body Mass Index) 28.9 kg/m2 07/18/2017 8:57am Height 61 inches 5'1" Weight 153.00 lb BP Systolic 140 mmHg BP Diastolic 82 mmHg Respiratory Rate 16 /min Body Temperature 95.4 F Pain Level 7 BMI (Body Mass Index) 28.9 kg/m2 07/03/2017 9:53am Height 61 inches 5'1" Weight 153.00 lb Heart Rate 76 /min Respiratory Rate 16 /min Body Temperature 98.6 F Pain Level 8 BMI (Body Mass Index) 28.9 kg/m2 06/05/2017 9:54am Height 61 inches 5'1" Weight 153.00 lb Heart Rate 68 /min BP Systolic 130 mmHg BP Diastolic 82 mmHg Body Temperature 98.5 F Pain Level 7 BMI (Body Mass Index) 28.9 kg/m2 05/08/2017 9:41am Height 61 inches 5'1" Weight 153.00 lb Heart Rate 76 /min BP Systolic 128 mmHg BP Diastolic 76 mmHg Respiratory Rate 18 /min Pain Level 9 BMI (Body Mass Index) 28.9 kg/m2 04/18/2017 9:28am Heart Rate 64 /min BP Systolic Sitting 138 mmHg BP Diastolic Sitting 100 mmHg Body Temperature 98.1 F Pain Level 8 04/09/2017 2:25pm Height 61 inches 5'1" Weight 146.00 lb w/ shoes Heart Rate 78 /min reg BP Systolic Sitting 116 mmHg Rue, lg cuff BP Diastolic Sitting 82 mmHg Rue, lg cuff Respiratory Rate 16 /min O2 % BldC Oximetry 95 % on Ra BMI (Body Mass Index) 27.6 kg/m2 02/15/2017 2:19pm Height 61 inches 5'1" Weight 147.00 lb Body Temperature 98.8 F Pain Level 7 BMI (Body Mass Index) 27.8 kg/m2 02/15/2017 2:19pm Height 61 inches 5'1" Weight 147.00 lb Body Temperature 98.8 F Pain Level 7 BMI (Body Mass Index) 27.8 kg/m2 02/15/2017 2:18pm Height 61 inches 5'1" Weight 147.00 lb Body Temperature 98.8 F Pain Level 7 BMI (Body Mass Index) 27.8 kg/m2 02/01/2017 1:43pm Height 61.5 inches 5'1.50" Weight 153.00 lb Heart Rate 75 /min Respiratory Rate 16 /min Pain Level 7 BMI (Body Mass Index) 28.4 kg/m2 01/18/2017 8:14am Height 61.5 inches 5'1.50" Weight 153.00 lb Heart Rate 66 /min BP Systolic Sitting 142 mmHg BP Diastolic Sitting 82 mmHg Respiratory Rate 16 /min Body Temperature 96.0 F Pain Level 8 BMI (Body Mass Index) 28.4 kg/m2 01/15/2017 10:23am Height 61 inches 5'1" Weight 153.00 lb Heart Rate 68 /min BP Systolic Sitting 136 mmHg BP Diastolic Sitting 92 mmHg Respiratory Rate 16 /min O2 % BldC Oximetry 97 % room air BMI (Body Mass Index) 28.9 kg/m2 Neck Circumference in inches 13.5 12/07/2016 2:38pm Height 61 inches 5'1" Weight 147.00 lb Heart Rate 95 /min BP Systolic 142 mmHg BP Diastolic 91 mmHg Body Temperature 97.2 F Pain Level 7 BMI (Body Mass Index) 27.8 kg/m2 11/22/2016 9:27am Height 61 inches 5'1" Weight 147.00 lb BP Systolic 122 mmHg BP Diastolic 80 mmHg Respiratory Rate 16 /min Pain Level 7 BMI (Body Mass Index) 27.8 kg/m2 04/16/2016 11:27am Height 61 inches 5'1" Weight 150.00 lb Pain Level 0 BMI (Body Mass Index) 28.3 kg/m2 03/05/2016 9:49am Height 61 inches 5'1" Weight 150.00 lb Heart Rate 64 /min Respiratory Rate 6 /min Pain Level 7 BMI (Body Mass Index) 28.3 kg/m2 01/19/2016 2:38pm Height 61 inches 5'1" Weight 150.00 lb BP Systolic 143 mmHg BP Diastolic 88 mmHg Pain Level 7 BMI (Body Mass Index) 28.3 kg/m2 05/06/2014 9:30am Height 61 inches 5'1" Weight 150.00 lb Heart Rate 75 /min BP Systolic 159 mmHg BP Diastolic 95 mmHg Pain Level 8 BMI (Body Mass Index) 28.3 kg/m2 Results Test Date Facility Test Result H/L Range Note Lipid Profile 07/01/2018 [facility] Triglycerides 178 mg/dL 1 (Trig/Chol/HDL) [address] [place] [address] [phone] Cholesterol 193 mg/dL 2 HDL Cholesterol 42.6 mg/dL 3 LDL Cholesterol 115 mg/dL 4 Comp Metabolic Panel 07/01/2018 [facility] Sodium 144 mmol/L N 135-145 [address] [place] [address] [phone] Potassium 4.5 mmol/L N 3.5-5.0 Chloride 107 mmol/L N 101-111 Co2 Carbon Dioxide 28 mmol/L N 22-32 Anion Gap 9 mmol/L N 2-11 Glucose 97 mg/dL N 70-100 Blood Urea Nitrogen 16 mg/dL N 6-24 Creatinine 0.93 mg/dL N 0.51-0.95 BUN/Creatinine Ratio 17.2 N 8-20 Calcium 9.4 mg/dL N 8.6-10.3 Total Protein 6.5 g/dL N 6.4-8.9 Albumin 4.5 g/dL N 3.2-5.2 Globulin 2.0 g/dL N 2-4 Albumin/Globulin Ratio 2.3 N 1-3 Total Bilirubin 0.50 mg/dL N 0.2-1.0 Alkaline Phosphatase 75 U/L N 34-104 Alt 22 U/L N 7-52 Ast 22 U/L N 13-39 Egfr Non- 62.1 >60 Egfr 75.2 >60 5 Urine Microalbumin 07/01/2018 [facility] Ur Microalbumin 20.[address] (mg/L) [place] [address] [phone] Urine Creatinine 65.42 mg/dL Urine Microalbumin/Creatinine 31.0 N <31 Laboratory test 07/01/2018 [facility] Vitamin D Total 30.3 ng/ mL N 20-[address]) [place] [address] [phone] Laboratory test 07/01/2018 [facility] Hemoglobin A1c 6.1 5-7 finding Laboratory test 10/14/2017 [facility] Point of Care 118 mg/dL High 70-100 [address] [place] [address] [phone] Laboratory test 05/23/2017 [facility] Point of Care 111 mg/dL High 70-100 [address] [place] [address] [phone] Laboratory test 05/23/2017 [facility] Point of Care 109 mg/dL High 70-100 [address] [place] [address] [phone] Comp Metabolic 03/17/2014 [facility] Sodium 139 mmol/L N 133- [address] [place] [address] [phone] Potassium 3.8 mmol/L N 3.7-5.6 Chloride 106 mmol/L N 101-111 Co2 Carbon Dioxide 25 mmol/L N 22-32 Anion Gap 8 mmol/L N 2-11 Glucose 193 mg/dL High 70-100 Blood Urea Nitrogen 17 mg/dL N 6-24 Creatinine 0.97 mg/dL High 0.51-0.95 BUN/Creatinine Ratio 17.5 N 8-20 Calcium 9.0 mg/dL N 8.6-10.3 9 Total Protein 6.8 g/dL N 6.4-8.9 Albumin 4.3 g/dL N 3.2-5.2 Globulin 2.5 g/dL N 2-4 Albumin/Globulin Ratio 1.7 N 1-3 Total Bilirubin 0.50 mg/dL N 0.2-1.0 Alkaline Phosphatase 88 U/L N 34-104 Alt 13 U/L N 7-52 Ast 16 U/L N 13-39 Egfr Non- 60.3 N >60 Egfr 77.6 N >60 10 CBC Auto Diff 03/17/2014 [facility] White Blood 8.2 10^3/uL N 4.8-10.[address] [place], [place] [id number] [phone] Red Blood Count 5.12 10^6/uL N 4.0-5.4 Hemoglobin 15.2 g/dL N 12.0-16.0 Hematocrit 45 % N 35-47 Mean Corpuscular Volume 87 fL N 80-97 Mean Corpuscular Hemoglobin 30 pg N 27-31 Mean Corpuscular HGB Conc 34 g/dL N 31-36 Red Cell Distribution Width 13 % N 10.5-15 Platelet Count 230 10^3/uL N 150-450 Mean Platelet Volume 11 um3 High 7.4-10.4 Abs Neutrophils 4.6 10^3/uL N 1.5-7.7 Abs Lymphocytes 2.9 10^3/uL N 1.0-4.8 Abs Monocytes 0.4 10^3/uL N 0-0.8 Abs Eosinophils 0.2 10^3/uL N 0-0.6 Abs Basophils 0.1 10^3/uL N 0-0.2 Abs Nucleated RBC 0.01 10^3/uL N Granulocyte % 56.4 % N 38-83 Lymphocyte % 35.7 % N 25-47 Monocyte % 4.9 % N 1-9 Eosinophil % 1.9 % N 0-6 Basophil % 1.1 % N 0-2 Nucleated Red Blood Cells % 0.1 N 1 Desirable: <150 Borderline High: 150-199 High: 200-499 Very High: >500 2 Desirable: <200 Borderline High: 200-239 High: >239 3 Low: <40 Desirable: 40-60 High: >60 4 Desirable: <100 Near Optimal: 100-129 Borderline High: 130-159 High: 160-189 Very High: >189 5 Because ethnic data is not always [...] 15-29 5 Kidney failure <15 (or dialysis) 6 Senior Graduate Advisor: [id number] Senior Graduate Advisor: [id number] Senior Graduate Advisor: [id number] 9 Specimen Lipemic. Result may not be valid. 10 Because ethnic data is not always readily [...] (or dialysis) Procedures Date Code Description Status 06/26/2018 75029 Holter Monitor Review (24 hr)dr meade & donovan only Completed 06/24/2018 03072 ECG Monitor/Recording W/Visual Superimposition Scanning Completed 06/05/2018 84703 EKG Tracing & Interpretation Completed 05/27/2018 58245 Stress Test Completed 05/27/2018 55297 Myocardial Perfusion Imaging Tomographic (Spect) Completed Multiple Studies 04/27/2018 84279 ECHO Transthorasic Realtime 2D W Doppler & Color Flow Completed Hosp 10/14/2017 67339 Neuroplasty/Transposition, Ulnar Nerve AT Wrist Completed 10/14/2017 35691 Neuroplasty &/Or Transposition; Ulnar Nerve AT Elbow Completed 10/14/2017 45952 Neuroplasty &/Or Transposition; Ulnar Nerve AT Elbow Completed 05/23/2017 57132 Neuroplasty/Transposition, Ulnar Nerve AT Wrist Completed 05/23/2017 30053 Neuroplasty &/Or Transposition; Ulnar Nerve AT Elbow Completed 05/23/2017 93700 Neuroplasty &/Or Transposition; Ulnar Nerve AT Elbow Completed 03/08/2017 81838 Polysomnography Sleep Staging 4+ Parameters Completed 01/22/2017 62747 Diffusing Capacity Completed 01/22/2017 10952 Plethysmography Determination Lung Volumes & Per Airway Completed Resist 01/22/2017 81379 Pulmonary Function><Bronchodil Completed 05/06/2014 81135 Inject/Drain Joint/Bursa Major W/O US Completed 04/02/2013 19286 Nerve Conduction 09-10 Studies Completed 04/02/2013 28109 Needle Electromyography Complete, Five Or More Muscles Completed Studied 02/17/2013 [id number] Colonoscopy Completed 07/15/2012 87994 Color Flow Doppler/Interp & Reprt Completed 07/15/2012 45077 Pulse Wave/Continuous-Interp.RPT Completed 07/15/2012 27419 ECHO Transthorasic Realtime 2D W Doppler & Color Flow Completed Hosp 05/02/2012 74003 EKG, Interpretation Only Completed Encounters Type Date Location Provider Dx Diagnosis Office Visit 07/15/2018 [facility] Nurse Visit IC I10 Essential ( primary) 10:00a [facility] hypertension Office Visit 07/08/2018 [facility] Tracie Mills, E11.9 Type 2 diabetes 11:00a [facility] N.P. mellitus without complications I10 Essential (primary) hypertension E78.5 Hyperlipidemia, unspecified R55 Syncope and collapse Office Visit 07/01/2018 8:40a [facility] Internal Alexandro Abelino, E11.9 Type 2 diabetes Medicine - [employer] mellitus without [place] complications I10 Essential (primary) hypertension J44.9 Chronic obstructive pulmonary disease, unspecified E78.5 Hyperlipidemia, unspecified E55.9 Vitamin D deficiency, unspecified Z12.11 Encounter for screening for malignant neoplasm of colon Z12.31 Encntr screen mammogram for malignant neoplasm of breast Z23 Encounter for immunization Office Visit 06/09/2018 10:00a [facility] Robert Ortega MD R55 Syncope and Clinic [facility] collapse I10 Essential (primary) hypertension E78.5 Hyperlipidemia, unspecified J44.9 Chronic obstructive pulmonary disease, unspecified E11.9 Type 2 diabetes mellitus without complications Z12.11 Encounter for screening for malignant neoplasm of colon Office Visit 06/05/2018 1:40p [facility] Jessica Lewis I10 Essential [facility] Morgan Calderón (primary) hypertension J44.9 Chronic obstructive pulmonary disease, unspecified E78.5 Hyperlipidemia, unspecified R55 Syncope and collapse R94.31 Abnormal electrocardiogram [ECG] [EKG] Office Visit 05/09/2018 10:30a [facility] Robert Ortega MD R55 S[facility] collapse J44.9 Chronic obstructive pulmonary disease, unspecified J45.909 Unspecified asthma, uncomplicated E78.5 Hyperlipidemia, unspecified I10 Essential (primary) hypertension Office Visit 04/28/2018 9:17a [facility] Azucena Armendairz, R55 [facility],taylor Mora collapse Hospitalists E86.0 Dehydration J44.9 Chronic obstructive pulmonary disease, unspecified E78.5 Hyperlipidemia, unspecified I10 Essential (primary) hypertension Office Visit 04/26/2018 9:16a [facility] Brandie R55 [facility],pc MARC Jung collapse Hospitalists I10 Essential (primary) hypertension Office Visit 04/09/2018 Pulmonology And Temi J45.909 Unspecified asthma , 9:00a Sleep Services Of MD Reinaldo uncomplicated [facility] J44.9 Chronic obstructive pulmonary disease, unspecified Office Visit 04/01/2018 Orthopedic Андрей G57.91 Unspecified 10:15a Services Of Morgan Fisher mononeuropathy of C.M.A. right lower limb Office Visit 03/05/2018 Orthopedic Андрей G56.22 Lesion of ulnar 8:30a Services Of MD Leonie nerve, left upper C.M.A. limb Office Visit 02/25/2018 Orthopedic Андрей G57.92 Unspecified 9:00a Services Of Morgan Fisher mononeuropathy of C.M.A. left lower limb G57.91 Unspecified mononeuropathy of right lower limb Office Visit 12/26/2017 Orthopedic Андрей G57.92 Unspecified 9:00a Services Of Morgan Fisher mononeuropathy of C.M.A. left lower limb Office Visit 12/03/2017 Orthopedic Андрей G56.22 Lesion of ulnar 3:15p Services Of MD Leonie nerve, left upper C.M.A. limb S60.212A Contusion of left wrist, initial encounter W19.xxxA Unspecified fall, initial encounter Office Visit 10/07/2017 2:30p Pulmonology And Tracie Lewis J44.1 Chronic Sleep Services Of [place] obstructive [employer] [facility] pulmonary disease w (acute) exacerbation J45.909 Unspecified asthma, uncomplicated Office Visit 09/04/2017 9:15a Orthopedic Андрей Hadley G56.21 Lesion of Services Of Ck GR ulnar nerve, right upper limb G56.22 Lesion of ulnar nerve, left upper limb Office Visit 08/19/2017 10:04a [facility] Swati Nolasco, R55 [facility],pc D.O. collapse Hospitalists R79.89 Other specified abnormal findings of blood chemistry J45.20 Mild intermittent asthma, uncomplicated J11.1 Flu due to unidentified influenza virus w oth resp manifest Office Visit 08/18/2017 10:03a [facility] Swati Nolasco, R55 [facility],pc D.O. collapse Hospitalists R79.89 Other specified abnormal findings of blood chemistry J44.1 Chronic obstructive pulmonary disease w (acute) exacerbation J45.20 Mild intermittent asthma, uncomplicated Office Visit 08/06/2017 Orthopedic Андрей M54.32 Sciatica, left side 8:30a Services Of Morgan Fisher C.M.A. Office Visit 04/18/2017 Haile Chiang G57.81 Other specified 9:30a Services Of Morgan Fisher mononeuropathies of C.M.A. 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 right lower limb Office Visit 02/01/2017 Orthopedic Андрей G56.21 Lesion of ulnar 1:30p Services Of MD Leonie nerve, right upper C.M.A. limb Office Visit 01/18/2017 Orthopedic Андрей G56.21 Lesion of ulnar 8:00a Services Of MD Leonie nerve, right upper C.M.A. limb Office Visit 01/15/2017 Pulmonology And Temi J45.901 Unspecified asthma 10:15a Sleep Services MD Reinaldo with (acute) Of Water Resource Consultant exacerbation J30.9 Allergic rhinitis, unspecified K21.9 Gastro-esophageal reflux disease without esophagitis R06.83 Snoring R51 Headache G47.8 Other sleep disorders R40.0 Somnolence J98.11 Atelectasis Office Visit 12/07/2016 Orthopedic Андрей G57.81 Other specified 2:45p Services Of Morgan Fisher mononeuropathies of C.M.A. right lower limb Office Visit 11/22/2016 Orthopedic Андрей G57.81 Other specified 9:00a Services Of Morgan Fisher mononeuropathies of C.M.A. right lower limb Office Visit 04/16/2016 Orthopedic Clover S63.631D Sprain of 11:20a Services Of Bitting, interphalangeal joint C.M.A. RPA-C of left index finger, subs S63.633D Sprain of interphalangeal joint of left middle finger, subs Office Visit 03/05/2016 Orthopedic Marcia S63.631D Sprain of 9:50a Services Of Morgan Baum interphalangeal C.M.A. joint of left index finger, subs Office Visit 01/19/2016 Orthopedic Marcia S63.631A Sprain of 2:40p Services Of Morgan Baum interphalangeal C.M.A. joint of left index finger, init S63.633A Sprain of interphalangeal joint of left middle finger, init Office Visit 10/24/2015 2:49p [facility] J45.52 Severe persistent Assoc,taylor Mccormack M.D. asthma with Hospitalists status asthmaticus J10.1 Flu due to oth ident influenza virus w oth resp manifest I10 Essential (primary) hypertension E11.9 Type 2 diabetes mellitus without complications [facility] Severe 2:38p Assoctaylor II, M.D. persistent Hospitalists asthma with status asthmaticus J10.1 Flu due to oth ident influenza virus w oth resp manifest I10 Essential (primary) hypertension E11.9 Type 2 diabetes mellitus without complications Office Visit 11/03/2014 9:35a [facility] 518.81 Respiratory Assoctaylor M.D. Failure Acute Hospitalists 493.92 Asthma Unspec W/ Acute Exacerbation 490 Bronchitis Acute Or Chronic Not Spec 038.9 Septicemia Unspec Office Visit 11/02/2014 9:34a [facility] 518.81 Respiratory Assoctaylor M.D. Failure Acute Hospitalists 493.92 Asthma Unspec W/ Acute Exacerbation 490 Bronchitis Acute Or Chronic Not Spec 038.9 Septicemia Unspec Office Visit 11/01/2014 9:34a [facility] 518.81 Respiratory Assoctaylor M.D. Failure Acute Hospitalists 493.92 Asthma Unspec W/ Acute Exacerbation 490 Bronchitis Acute Or Chronic Not Spec 038.9 Septicemia Unspec Office Visit [facility]/31[facility]2014 [facility] 518.[facility] Asso[facility]aylor M.D. Failure Acute Hospitalists 493.92 Asthma Unspec W/ Acute Exacerbation 490 Bronchitis Acute Or Chronic Not Spec 038.9 Septicemia Unspec Office Visit 08/18/2014 8:30a [facility] Sahara Nixon, 482.9 Pneumonia Due To Assoc,pc N.PCristian Bacterial Hospitalists Infection Unspec 038.9 Septicemia Unspec 401.9 Hypertension Unspec 272.4 Hyperlipidemia Other Unspec Office Visit 08/17/2014 8:30a [facility] Payton 482.9 Pneumonia Due Assoc,taylor Hill, MARC To Bacterial Hospitalists Infection Unspec 038.9 Septicemia Unspec 401.9 Hypertension Unspec 272.4 Hyperlipidemia Other Unspec [facility] 482.9 Pneumonia Due 8:29a Assoctaylor II, M.D. To Bacterial Hospitalists Infection Unspec 038.9 Septicemia Unspec 401.9 Hypertension Unspec 272.4 Hyperlipidemia Other Unspec Office Visit 05/06/2014 8:45a Orthopedic Services Marcelo Gamboa, 726.10 Bursae & Tendon Of Ck Mora Disorders Shoulder Region Unspec Office Visit 08/19/2012 1:15p Ruth Gloria Chiang 995.91 Sepsis Assoc,taylor Lucero N.P. Hospitalists 493.02 Extrinsic Asthma With Acute Exacerbation 481 Pneumonia Pneumococcal 250.00 Diabetes Mellitus W/O Compl Type II Or Unspec Controlled Office Visit 08/18[facility]2012 [facility] Luc[facility], 995.91 Sepsis Hospitalists N.P. 493.02 Extrinsic Asthma With Acute Exacerbation 481 Pneumonia Pneumococcal 250.00 Diabetes Mellitus W/O Compl Type II Or Unspec Controlled Office Visit 08/17/2012 [facility] [place], 995.91 Sepsis Hospitalists N.PCristian 493.02 Extrinsic Asthma With Acute Exacerbation 481 Pneumonia Pneumococcal 250.00 Diabetes Mellitus W/O Compl Type II Or Unspec Controlled Office Visit 08/16/2012 1[facility]p [facility] [place], 995.91 Sepsis Hospitalists N.P. 493.02 Extrinsic Asthma With Acute Exacerbation 481 Pneumonia Pneumococcal 250.00 Diabetes Mellitus W/O Compl Type II Or Unspec Controlled Office Visit 07/17/2012 6:48p [facility] Sunil 518.81 Respiratory Assoc,taylor Mccormack M.D. Failure Acute Hospitalists 493.02 Extrinsic Asthma With Acute Exacerbation 466.0 Bronchitis Acute 250.90 Diabetes W/ Unspec Compl Type II Or Unspec Controlled Office Visit 07/16/2012 6:48p [facility] Azucena 518.81 Respiratory Assoc,taylor Armendariz M.D. Failure Acute Hospitalists 493.02 Extrinsic Asthma With Acute Exacerbation 466.0 Bronchitis Acute Office Visit 07/15/2012 6:47p [facility] Azucena 518.81 Respiratory Assoc,taylor Armendariz M.D. Failure Acute Hospitalists 493.02 Extrinsic Asthma With Acute Exacerbation 466.0 Bronchitis Acute Office Visit 07/14/2012 [facility] Chelsea Chapman 518.81 Respiratory 6:47p Asstaylor lim M.D. Failure Acute Hospitalists 493.02 Extrinsic Asthma With Acute Exacerbation 466.0 Bronchitis Acute 250.90 Diabetes W/ Unspec Compl Type II Or Unspec Controlled Office Visit 05/05/2012 [facility] Swati 493.02 Extrinsic Asthma 7:27a Asscarina,taylor Nolasco D.O. With Acute Hospitalists Exacerbation 995.91 Sepsis 401.9 Hypertension Unspec Office Visit 05/04/2012 [facility] Swati 493.02 Extrinsic Asthma 7:26a Asscarina,taylor Nolasco D.O. With Acute Hospitalists Exacerbation 995.91 Sepsis 401.9 Hypertension Unspec Office Visit 05/03/2012 [facility] Luis Newell, 493.02 Extrinsic Asthma 7:26a taylor Salgado M.D. With Acute Hospitalists Exacerbation 995.91 Sepsis 401.9 Hypertension Unspec Office Visit 05/02/2012 [facility] Luis Newell, 493.02 Extrinsic Asthma 7:25a taylor Salgado M.D. With Acute Hospitalists Exacerbation 995.91 Sepsis 401.9 Hypertension Unspec Office Visit 03/02/2009 [facility] Donal 493.92 Asthma Unspec W/ 12:30a taylor Salgado M.D. Acute Hospitalists Exacerbation Office Visit 03/01/2009 [facility] Chelsea Chapman, 493.92 Asthma Unspec W/ 12:15a taylor Salgado M.D. Acute Hospitalists Exacerbation Plan of Treatment Future Appointment(s):08/28/2018 8:45 am - Emiliano Quintana MD at [facility] Vpeuunqfzmisqcbe63/04/2019 8:40 am - Alexandro Roca NP at [facility] Internal Medicine - Dyxqancxf43/13/2019 9:15 am - Temi Najera MD at [facility]07/31/2018 - Alexandro Roca NPI10 Essential (primary) hypertensionNew Medication:Lisinopril 10 mg - 1 by mouth every dayComments: Increase the Lisinopril to 10mg. Continue checking your blood pressure and call me in 2-3 weeks withreadings. I recommend calling Dr. Tan's office at to check on the status of thereferral to the neuromuscular center.Follow up:Pt. will call with BP readings in 2-3 weeks. F/U 2 izksoxG02.511 Pain in right shoulderNew Therapy:Physical PmpsymwU96.31 Localized swelling, mass and lump, right upper limbNew Xrays:US Soft Tissue, Ordered: 07/31/18
--- OUTSIDE RECORDS SUMMARY | 2018-08-21 18:28 | XMS REPORT | Continuity of Care Document ---
:1960 External Reference #:[id number] Author Name VazquezKaitlin lerma Care Team Providers Name Role Phone Nancie Egan MD Primary Care Physician Unavailable Payers Type Date Identification Numbers Payment Provider Subscriber Policy Number: [id number] Medicare Tess Clark PayID: [id number] [address] [place] [address] Policy Number: [id number] Medicaid Tess Davenportt PayID: [id number] [address] [place] [address] Effective: 2011 Policy Number: [id number] Medicare Tess Clark Expires: 2018 PayID: [id number] [address] [place] [address] Advance Directives Description No Information Available Problems [...] Solution 0.5-2.5(3 60uni 1 vial in Unknown Thurman/Albutero /0000 )mg/3ML ts nebulizer l Sulfate three [...] daily 2018 Vitamin D3 00 Hx Capsules [id number] Unknown /0000 - 07/07 Cyclobenzaprine Hx Unknown [...] CPT Code Status Date Vaccine Lot # [id number] Given 07/01/2018 Influenza Virus Vaccine, Quadrivalent, Split, [id number] Preservative Free [id number] Given 05/07/2016 Influenza Virus 3Yrs & Over [...] Result H/L Range Note Lipid Profile 07/01/2018 [facility] Triglycerides 178 mg/dL 1 (Trig/Chol/HDL) [address] [place] [address] [phone] Cholesterol 193 mg/dL 2 HDL Cholesterol 42.6 mg/dL 3 LDL Cholesterol 115 mg/dL 4 Comp Metabolic Panel 07/01/2018 [facility] Sodium 144 mmol/L N 135-145 [address] [place] [address] [phone] Potassium 4.5 mmol/L N 3.5-5.0 Chloride 107 [...] Egfr 75.2 >60 5 Urine Microalbumin 07/01/2018 [facility] Ur Microalbumin 20.[address] (mg/L) [place] [address] [phone] Urine Creatinine 65.42 mg/dL Urine Microalbumin/Creatinine 31.0 N <31 Laboratory test 07/01/2018 [facility] Vitamin D Total 30.3 ng/ mL N 20-[address]) [place] [address] [phone] Laboratory test 07/01/2018 [employer] In House Hemoglobin A1c 6.1 5-7 finding Laboratory test 10/14/2017 [facility] Point of Care 118 mg/dL High 70-100 [address] [place] [address] [phone] Laboratory test 05/23/2017 [facility] Point of Care 111 mg/dL High 70-100 [address] [place] [address] [phone] Laboratory test 05/23/2017 [facility] Point of Care 109 mg/dL High 70-100 [address] [place] [address] [phone] Comp Metabolic 03/17/2014 [facility] Sodium 139 mmol/L N 133- [address] [place] [address] [phone] Potassium 3.8 mmol/L N 3.7-5.6 Chloride 106 [...] N >60 10 CBC Auto Diff 03/17/2014 [facility] White Blood 8.2 10^3/uL N 4.8-10.[address] Count [place], [place] [id number] [phone] Red Blood Count 5.12 10^6/uL N 4.0-5.4 [...] 5 Kidney failure <15 (or dialysis) 6 Linen Clerk: [id number] Linen Clerk: [id number] Linen Clerk: [id number] 9 Specimen Lipemic. Result may not be [...] dialysis) Procedures Date Code Description Status 06/26/2018 31398 Holter Monitor Review (24 hr)dr meade & donovan only Completed 06/24/2018 63405 ECG Monitor/Recording W/Visual Superimposition Scanning Completed 06/05/2018 50697 EKG Tracing & Interpretation Completed 05/27/2018 70339 Stress Test Completed 05/27/2018 60321 Myocardial Perfusion Imaging Tomographic (Spect) Completed Multiple Studies 04/27/2018 08114 ECHO Transthorasic Realtime 2D W Doppler & Color Flow Completed Hosp 10/14/2017 96928 Neuroplasty/Transposition, Ulnar Nerve AT Wrist Completed 10/14/2017 66309 Neuroplasty &/Or Transposition; Ulnar Nerve AT Elbow Completed 10/14/2017 91333 Neuroplasty &/Or Transposition; Ulnar Nerve AT Elbow Completed 05/23/2017 03339 Neuroplasty/Transposition, Ulnar Nerve AT Wrist Completed 05/23/2017 63317 Neuroplasty &/Or Transposition; Ulnar Nerve AT Elbow Completed 05/23/2017 09892 Neuroplasty &/Or Transposition; Ulnar Nerve AT Elbow Completed 03/08/2017 87393 Polysomnography Sleep Staging 4+ Parameters Completed 01/22/2017 39768 Diffusing Capacity Completed 01/22/2017 28770 Plethysmography Determination Lung Volumes & Per Airway Completed Resist 01/22/2017 24163 Pulmonary Function><Bronchodil Completed 05/06/2014 53883 Inject/Drain Joint/Bursa Major W/O US Completed 04/02/2013 03074 Nerve Conduction 09-10 Studies Completed 04/02/2013 12298 Needle Electromyography Complete, Five Or More Muscles Completed Studied 02/17/2013 39737362 Colonoscopy Completed 07/15/2012 59416 Color Flow Doppler/Interp & Reprt Completed 07/15/2012 55870 Pulse Wave/Continuous-Interp.RPT Completed 07/15/2012 71784 ECHO Transthorasic Realtime 2D W Doppler & Color Flow Completed Hosp 05/02/2012 11163 EKG, Interpretation Only Completed Encounters Type Date Location Provider Dx Diagnosis Office Visit 07/31/2018 [facility] Alexandro Roca NP I10 Essential (primary ) 9:20a Medicine - hypertension [place] M25.511 Pain in right shoulder R22.31 Localized swelling, mass and lump, right upper limb M53.3 Sacrococcygeal disorders, not elsewhere classified Office Visit 07/15/2018 10:00a [facility] Nurse Visit I10 Essential (primary) Of [facility] IC hypertension Office Visit 07/08/2018 11:00a [facility] Tracie Lewis E11.9 Type 2 diabetes Of [facility] Gene, N.P. mellitus without complications I10 Essential (primary) hypertension E78.5 Hyperlipidemia, unspecified R55 Syncope and collapse Office Visit 07/01/2018 8:40a [facility] Alexandro Abelino, E11.9 Type 2 diabetes Medicine - [employer] mellitus without [place] complications I10 Essential (primary) hypertension J44.9 Chronic obstructive pulmonary disease, unspecified E78.5 Hyperlipidemia, unspecified E55.9 Vitamin D deficiency, unspecified Z12.11 Encounter for screening for malignant neoplasm of colon Z12.31 Encntr screen mammogram for malignant neoplasm of breast Z23 Encounter for immunization Office Visit 06/09/2018 10:00a [facility] Robert Ortega MD R55 Syncope and Clinic Of [facility] collapse I10 Essential (primary) hypertension E78.5 Hyperlipidemia, unspecified J44.9 Chronic obstructive pulmonary disease, unspecified E11.9 Type 2 diabetes mellitus without complications Z12.11 Encounter for screening for malignant neoplasm of colon Office Visit 06/05/2018 1:40p [facility] Jessica Lewis I10 Essential Of [facility] Morgan Calderón (primary) hypertension J44.9 Chronic obstructive pulmonary disease, unspecified E78.5 Hyperlipidemia, unspecified R55 Syncope and collapse R94.31 Abnormal electrocardiogram [ECG] [EKG] Office Visit 05/09/2018 10:30a [facility] Robert Ortega MD R55 Syncope and Clinic Of [facility] collapse J44.9 Chronic obstructive pulmonary disease, unspecified J45.909 Unspecified asthma, uncomplicated E78.5 Hyperlipidemia, unspecified I10 Essential (primary) hypertension Office Visit 04/28/2018 9:17a [facility] Azucena Armendariz, R55 Syncope and Assoc,taylor Mora collapse Hospitalists E86.0 Dehydration J44.9 Chronic obstructive pulmonary disease, unspecified E78.5 Hyperlipidemia, unspecified I10 Essential (primary) hypertension Office Visit 04/26/2018 9:16a [facility] Brandie R55 Syncope and Assoc,pc MARC Jung collapse Hospitalists I10 Essential (primary) hypertension Office Visit 04/09/2018 [facility] J45.909 Unspecified asthma , 9:00a Sleep Services Of MD Reinaldo uncomplicated [facility] J44.9 Chronic obstructive pulmonary disease, unspecified Office [...] of right lower limb Office Visit 12/26/2017 Haile Chiang G57.92 Unspecified 9:00a Services Of Morgan Fisher mononeuropathy of C.M.A. left lower limb Office Visit 12/03/2017 Haile Chiang G56.22 Lesion of ulnar 3:15p Services Of MD Leonie nerve, left upper C.M.A. limb S60.212A Contusion of left wrist, initial encounter W19.xxxA Unspecified fall, initial encounter Office Visit 10/07/2017 2:30p Pulmonology And Tracie Lewis J44.1 Chronic Sleep Services Of [place] obstructive [employer] pulmonary disease w (acute) exacerbation J45.909 Unspecified asthma, uncomplicated Office Visit 09/04/2017 9:15a Orthopedic Андрей Hadley G56.21 Lesion of Services Of Ck RG ulnar nerve, right upper limb G56.22 Lesion of ulnar nerve, left upper limb Office Visit 08/19/2017 10:04a [facility] Swati Nolasco, R55 Syncope and Assoc,pc D.O. collapse Hospitalists R79.89 Other specified abnormal findings of blood chemistry J45.20 Mild intermittent asthma, uncomplicated J11.1 Flu due to unidentified influenza virus w oth resp manifest Office Visit 08/18/2017 10:03a [facility] Swati Nolasco, R55 Syncope and Assoc,pc [...] 2:30p Sleep Services MD Reinaldo uncomplicated Of [employer] Office Visit 02/15/2017 Orthopedic Андрей G57.81 Other specified 2:15p Services Of Morgan [...] Sleep Services MD Reinaldo with (acute) Of [employer] exacerbation J30.9 Allergic rhinitis, unspecified K21.9 Gastro-esophageal [...] middle finger, init Office Visit 10/24/2015 2:49p [facility] J45.52 Severe persistent Assoc,taylor Mccormack M.D. asthma with Hospitalists status asthmaticus J10.1 Flu due to oth ident influenza virus w oth resp manifest I10 Essential (primary) hypertension E11.9 Type 2 diabetes mellitus without complications [facility] J45.52 Severe 2:38p Assoc,taylor TINAJERO M.D. persistent Hospitalists asthma with status asthmaticus J10.1 Flu due to oth ident influenza virus w oth resp manifest I10 Essential (primary) hypertension E11.9 Type 2 diabetes mellitus without complications Office Visit 11/03/2014 9:35a [facility] 518.81 Respiratory Assoc,taylor Mccormack M.D. Failure Acute Hospitalists 493.92 Asthma Unspec W/ Acute Exacerbation 490 Bronchitis Acute Or Chronic Not Spec 038.9 Septicemia Unspec Office Visit 11/02/2014 9:34a [facility] 518.81 Respiratory Assoctaylor M.D. Failure Acute Hospitalists 493.92 Asthma Unspec W/ Acute Exacerbation 490 Bronchitis Acute Or Chronic Not Spec 038.9 Septicemia Unspec Office Visit 11/01/2014 9:34a [facility] 518.81 Respiratory Assoctaylor M.D. Failure Acute Hospitalists 493.92 Asthma Unspec W/ Acute Exacerbation 490 Bronchitis Acute Or Chronic Not Spec 038.9 Septicemia Unspec Office Visit 10/31/2014 9[facility] 518.81 Respiratory Assoctaylor M.D. Failure Acute Hospitalists 493.92 Asthma Unspec W/ Acute Exacerbation 490 Bronchitis Acute Or Chronic Not Spec 038.9 Septicemia Unspec Office Visit 08/18/2014 8:30a [facility] Sahara Nixon, 482.9 Pneumonia Due To Assoc,pc N.P. Bacterial Hospitalists Infection Unspec 038.9 Septicemia Unspec 401.9 Hypertension Unspec 272.4 Hyperlipidemia Other Unspec Office Visit 08/17/2014 8:30a [facility] Payton 482.9 Pneumonia Due Assoc,pc Sergio, MARC To Bacterial Hospitalists Infection Unspec 038.9 Septicemia Unspec 401.9 Hypertension Unspec 272.4 Hyperlipidemia Other Unspec Office Visit 08/16/2014 [facility] Emil Pancho 482.9 Pneumonia Due 8:29a Assoc,taylor TINAJERO M.D. To Bacterial Hospitalists Infection Unspec 038.9 Septicemia Unspec 401.9 Hypertension Unspec 272.4 Hyperlipidemia Other Unspec Office Visit 05/06/2014 8:45a Orthopedic Services Marcelo Gamboa, 726.10 Bursae & Tendon Of CLorinACristian Anthony. Disorders Shoulder Region Unspec Office Visit 08/19/2012 1:15p [facility] Андрей 995.91 Sepsis Assoc,taylor Lucero NPratik Hospitalists 493.02 Extrinsic Asthma With Acute Exacerbation 481 Pneumonia Pneumococcal 250.00 Diabetes Mellitus W/O Compl Type II Or Unspec Controlled Office Visit 08/18/2012 1:14p [facility] ,taylor Lucero 995.91 Sepsis Hospitalists N.P. 493.02 Extrinsic Asthma With Acute Exacerbation 481 Pneumonia Pneumococcal 250.00 Diabetes Mellitus W/O Compl Type II Or Unspec Controlled Office Visit 08/17/2012 [facility] 995.91 Sepsis Hospitalists N.P. 493.02 Extrinsic Asthma With Acute Exacerbation 481 Pneumonia Pneumococcal 250.00 Diabetes Mellitus W/O Compl Type II Or Unspec Controlled Office Visit 08/16/2012 1:13p [facility] 995.91 Sepsis Hospitalists N.P. 493.02 Extrinsic Asthma With Acute Exacerbation 481 Pneumonia Pneumococcal 250.00 Diabetes Mellitus W/O Compl Type II Or Unspec Controlled Office Visit 07/17/2012 6:48p [facility] Sunil 518.81 Respiratory Assoc,taylor Mccormack M.D. Failure Acute Hospitalists 493.02 Extrinsic Asthma With Acute Exacerbation 466.0 Bronchitis Acute 250.90 Diabetes W/ Unspec Compl Type II Or Unspec Controlled Office Visit 07/16/2012 6:48p [facility] Azucena 518.81 Respiratory Assoc,taylor Armendariz M.D. Failure Acute Hospitalists 493.02 Extrinsic Asthma With Acute Exacerbation 466.0 Bronchitis Acute Office Visit 07/15/2012 6:47p [facility] Azucena 518.81 Respiratory Assoc,taylor Armendariz M.D. Failure Acute Hospitalists 493.02 Extrinsic Asthma With Acute Exacerbation 466.0 Bronchitis Acute Office Visit 07/14/2012 [facility] Chelsea Chapman, 518.81 Respiratory 6:47p taylor Salgado M.D. Failure Acute Hospitalists 493.02 Extrinsic Asthma With Acute Exacerbation 466.0 Bronchitis Acute 250.90 Diabetes W/ Unspec Compl Type II Or Unspec Controlled Office Visit 05/05/2012 [facility] Swati 493.02 Extrinsic Asthma 7:27a taylor Salgado D.O. With Acute Hospitalists Exacerbation 995.91 Sepsis 401.9 Hypertension Unspec Office Visit 05/04/2012 [facility] Swati 493.02 Extrinsic Asthma 7:26a taylor Salgado DIrvin With Acute Hospitalists Exacerbation 995.91 Sepsis 401.9 Hypertension Unspec Office Visit 05/03/2012 [facility] Luis Newell, 493.02 Extrinsic Asthma 7:26a taylor Salgado M.D. With Acute Hospitalists Exacerbation 995.91 Sepsis 401.9 Hypertension Unspec Office Visit 05/02/2012 [facility] Luis Newell, 493.02 Extrinsic Asthma 7:25a taylor Salgado M.D. With Acute Hospitalists Exacerbation 995.91 Sepsis 401.9 Hypertension Unspec Office Visit 03/02/2009 [facility] Donal 493.92 Asthma Unspec W/ 12:30a taylor Salgado M.D. Acute Hospitalists Exacerbation Office Visit 03/01/2009 [facility] Chelsea Chapman, 493.92 Asthma Unspec W/ 12:15a taylor Salgado M.D. Acute Hospitalists Exacerbation Plan of Treatment Future Appointment(s):08/28/2018 8:45 am - Emiliano Quintana MD at [facility] Lpuykojwvqdkthhg44/04/2019 8:40 am - Alexandro Roca NP at [facility] Internal Medicine - Aucklalyo14/13/2019 9:15 am - Temi Najera MD at [facility]07/31/2018 - Alexandro Roca NPI10 Essential (primary) hypertensionNew Medication:Lisinopril 10 mg - 1 by mouth every dayComments: Increase the Lisinopril to 10mg. Continue checking your blood pressure and call me in 2-3 weeks withreadings. I recommend calling Dr. Tan's office at to check on the status of thereferral to the neuromuscular center.Follow up:Pt. will call with BP readings in 2-3 weeks. F/U 2 lotcnnK31.511 Pain in right shoulderNew Therapy:Physical SqbwxfyO45.31 Localized swelling, mass and lump, right upper limbM53.3 Sacrococcygeal disorders, not elsewhere classifiedNew Medication:Donut Pillow - For use when sitting
[2018-08-21 18:35] LABS: Albumin 4.8 g/dL (3.2-5.2); Albumin/Globulin Ratio 1.9 (1-3); BUN/Creatinine Ratio 15.3 (8-20); C Reactive Protein 4.43 mg/L (<8.01); Calcium 9.7 mg/dL (8.6-10.3); EGFR African American 57.1 (>60); EGFR Non-African American 47.2 (>60); Globulin 2.5 g/dL (2-4); Potassium 3.9 mmol/L (3.5-5.0); Total Bilirubin 0.4 mg/dL (0.2-1.0); Total Protein 7.3 g/dL (6.4-8.9)
[2018-08-21 18:39] LABS: CKMB ng/mL 0.9 ng/mL (0.6-6.3)
[2018-08-21] MEDS ORDERED: Albuterol/Ipratropium NEB.SOL* Albuterol 2.5 MG/Ipratropium 0.5 MG 3 ML INH ONE (19:07)
[2018-08-21] MEDS ORDERED: Dextrose 50% Syringe 50 ML* 25 GM/50 ML SYRINGE IV PUSH PRN (19:38)
--- NOTE | 2018-08-21 19:47 | ADMNOTE ---
Subjective Date of Service: 08/21/18 - History and Physical Interval History: HISTORY AND PHYSICAL Chief complaint: Shortness of breath HPI: This is a 58 year old Female with medical history of COPD/Asthma, Hypertension, hyperlpidemia, diet controlled diabetes, who presents to the emergency room because of shortness of breath. Shortness of breath started several hours prior to admission, associated with wheezing. She is having cough , but unable to expectorate sputum. There is chest tightness- but has improved with breathing treatments. No fever, no chills. She has no sore throat. No sick contacts. Has chronic ear pain- unchanged. In the Emergency room received solumedrol, and duonebs, with no relief. Past medical history: Asthma COPD, GERD Diabetes, diet controlled GERD Hypertension Past surgeries: Ear surgeries Tubal Ligation Carpal Tunnel Social history: Lives at home, does not smoke, no alcohol use Family history Mother: Seizures, Diabetes Father: heart disease Review of Systems - Measurements Intake and Output: Intake and Output Last 24 Hours 08/19/18 08/20/18 08/21/18 08/22/18 06:59 06:59 06:59 06:59 Weight 151 lb - Review of Systems Constitutional Symptoms: Negative: Weight Loss, Weakness, Fever Dermatology: Negative: Rash HEENT: Positive: Other - chronic ear pain Negative: Change in Hearing Eyes: Negative: Change in Vision, Eye Pain Thyroid: Negative: Constipation, Palpitations Pulmonary: Positive: Cough, Wheezing, Respiratory Distress, Shortness of Breath , COPD, Asthma Negative: Sputum, Home Oxygen Cardiology: Positive: Chest Pain, Shortness of Breath Negative: Palpitations, Faintness, Syncope Gastroenterology: Negative: Abdominal Pain, Nausea, Vomiting, Heartburn Genital - Urinary: Negative: Dysuria, Hematuria, Polyuria Genitourinay - Female: Positive: Menopause Musculoskeletal: Positive: Low Back Pain Endocrinology: Positive: Diabetes Mellitus Hematologic/Lymphatic: Negative: Anemia, Easy Brusing, Use of Anticoagulant Neurology: Negative: Headache, Dizziness, Change in Speech Psychiatry: Negative: Depression, Anxiety, Depressed Mood Allergic/Immunologic: Positive: Hx Environmental, Hx Seasonal, Athsma Objective Active Medications: Albuterol/Ipratropium (Duoneb (Albuterol 2.5 Mg/Ipratropium 0.5 Mg)) 1 neb INH Q4H [facility] Budesonide (Pulmicort Flexhaler 90 Mcg/Act (Nf)) 1 puff INH BID [facility] Dextrose (D50w Syringe 50 Ml*) 12.5 gm IV PUSH .FOR FS < 60 - SS PRN PRN Reason: FS < 60 Doxycycline Hyclate (Vibramycin Cap(*)) 100 mg PO BID [facility] Enoxaparin Sodium (Lovenox(*)) 40 mg SUBCUT Q24H [facility] Insulin Human Lispro (Humalog*) 0 units SUBCUT ACHS [facility]; Protocol Isosorbide Mononitrate (Imdur Er Tab*) 60 mg PO DAILY [facility] Lisinopril (Prinivil Tab*) 10 mg PO DAILY [facility] Lovastatin (Mevacor (Nf)) 20 mg PO QAM [facility]; Protocol Methylprednisolone Sodium Succinate (Solu-Medrol 40 Mg) 40 mg IV Q8H [facility] Montelukast Sodium (Singulair Tab*) 10 mg PO QAM [facility] Non-Formulary Medication (Calcium 500/Vitamin D 500-125 Mg-Unit) 1 tab PO QAM [facility] Non-Formulary Medication (Fenofibrate Nanocrystallized [Triglide]) 160 mg PO QAM [facility] Vital Signs - 8 hr 08/21/18 08/21/18 08/21/18 17:48 17:58 18:39 Temperature 99.6 F Pulse Rate 114 96 110 Respiratory 32 16 32 Rate Blood Pressure 184/107 156/105 (mmHg) O2 Sat by Pulse 98 98 99 Oximetry 08/21/18 08/21/18 08/21/18 18:43 18:56 19:00 Temperature Pulse Rate 114 124 119 Respiratory 25 28 24 Rate Blood Pressure 145/114 (mmHg) O2 Sat by Pulse 98 94 94 Oximetry 08/21/18 19:25 Temperature Pulse Rate 110 Respiratory 24 Rate Blood Pressure 157/96 (mmHg) O2 Sat by Pulse 95 Oximetry Oxygen Devices in Use Now: None Appearance: Well developed, obese female lying in ER stretcher, in mild respiratory distress. She has to pause frequently to breathe Eyes: No Scleral Icterus, PERRLA, - - no nystagmus. Ears/Nose/Mouth/Throat: Mucous Membranes Moist, - - no oropharyngeal erythema. Neck: Trachea Midline, No Thyroid Enlargement, Masses Respiratory: - - Tachypnea, no use of accessory muscles, moderate wheezing throughout all lung cronin. Cardiovascular: No Edema, - - Regular tachycardia, no murmurs. Abdominal: NL Sounds; No Tenderness; No Distention, No Hepatosplenomegaly Extremities: No Edema, No Clubbing, Cyanosis Skin: No Rash or Ulcers Neurological: Alert and Oriented x 3, NL Muscle Strength and Tone Result Diagrams: 08/21/18 17:10 08/21/18 17:10 Diagnostic Imaging: Chest xray: official read pending, no inflitrates per my read Assess/Plan/Problems-Billing Assessment: - Patient Problems (1) COPD exacerbation Current Visit: Yes Status: Acute Code(s): J44.1 - CHRONIC OBSTRUCTIVE PULMONARY DISEASE W (ACUTE) EXACERBATION SNOMED Code(s): 061411534 Comment: Will treat with solumedrol 40mg IV Q 8hrs, duonebs, continue home singulair mucinex. doxycylcine for copd exacerbation check for flu check ABG Patient has received steroids and back to back inhalers in the ED without relief. (2) SIRS (systemic inflammatory response syndrome) Current Visit: Yes Status: Acute Code(s): R65.10 - SIRS OF NON-INFECTIOUS ORIGIN W/O ACUTE ORGAN DYSFUNCTION SNOMED Code(s): 042751030 Comment: Tachycardia, and Tachypnea due to COPD exacerbation, thus far no infectious etiology (3) HTN (hypertension) Current Visit: No Status: Chronic Code(s): I10 - ESSENTIAL (PRIMARY) HYPERTENSION SNOMED Code(s): 20733472 Comment: Takes linisopril and isosorbide nitrate- continue home regimen. (4) DVT prophylaxis Current Visit: No Status: Acute Onset Date: 10/31/14 Code(s): GEL8367 - SNOMED Code(s): 714124997 Comment: Ivette Rojas (5) Non-insulin dependent type 2 diabetes mellitus Current Visit: No Status: Chronic Code(s): E11.9 - TYPE 2 DIABETES MELLITUS WITHOUT COMPLICATIONS SNOMED Code(s): 80576062 Comment: diet controlled. now on steroids for COPD exacerbation, so will add sliding scale insulin Points of Discussion: This is a history of physical. Medications/Allergies Medications: Home Medications Medication Instructions Recorded Confirmed Type Lovastatin (NF) [Mevacor (NF)] 20 mg PO QAM 08/16/12 08/21/18 History Montelukast Sodium TAB* [Singulair 10 mg PO QAM 03/24/13 08/21/18 History 10 MG TAB*] Albuterol 2.5MG/3ML (0.083%)* 2.5 mg INH Q12HR PRN 07/29/15 07/02/18 History [Ventolin 2.5 MG/3 ML NEB.ALEX*] Calcium 500/Vitamin D 500-125 1 tab PO QAM 07/29/15 07/02/18 History mg-Unit Albuterol HFA INHALER* [Ventolin 1 puff INH Q4HR PRN 08/11/16 07/02/18 History HFA Inhaler*] Fenofibrate Nanocrystallized 160 mg PO QAM 08/11/16 07/02/18 History [Triglide] Ibuprofen TAB* [Motrin TAB* 800 MG] 800 mg PO TID PRN 11/16/16 08/21/18 History Ranitidine TAB (NF) [Zantac TAB 150 mg PO BID 02/04/17 08/21/18 History (NF)] Budesonide Flexhaler 90 (NF) 1 puff INH BID 04/26/18 08/21/18 History [Pulmicort Flexhaler 90 mcg/act (NF)] Pantoprazole TAB * [Protonix TAB*] 40 mg PO DAILY 04/26/18 08/21/18 History EPINEPHrine [Epipen 2-Gulshan] 1 inj SUBCUT ONCE PRN #0 04/28/18 07/02/18 Rx Ipratropium/Albuterol Sulfate 3 ml INH TID PRN 07/02/18 07/02/18 History [Iprat-Albut 0.5-3(2.5) mg/3 ml] Isosorbide Mononitrate ER TAB* 60 mg PO DAILY 07/02/18 08/21/18 History [Imdur ER TAB*] Glycopyrrolate/Formoterol Fum 08/21/18 History [Bevespi Aerosphere Inhaler] Glycopyrrolate/Formoterol Fum 08/21/18 History [Bevespi Aerosphere Inhaler] Lisinopril 10 mg PO DAILY 08/21/18 08/21/18 History Allergies/Adverse Reactions: Allergies Allergy/AdvReac Type Severity Reaction Status Date / Time Adhesive Tape Allergy Mild Rash Verified 04/26/18 13:34 amoxicillin [From Augmentin] Allergy Rash Verified 04/26/18 13:34 azithromycin Allergy Rash And Verified 04/26/18 13:34 Itching clavulanic acid Allergy Rash Verified 04/26/18 13:34 [From Augmentin] hydromorphone [From Dilaudid] Allergy Rash Verified 04/26/18 13:34 morphine Allergy Difficulty Verified 04/26/18 13:34 Breathing moxifloxacin [From Avelox] Allergy Rash Verified 04/26/18 13:34 tapentadol [From Nucynta] Allergy Rash Verified 04/26/18 13:34 tolmetin [From Tolectin] Allergy Rash Verified 04/26/18 13:34 valdecoxib [From Bextra] Allergy Rash Verified 04/26/18 13:34 PERFUMES Allergy Severe DYSPNEA Uncoded 12/02/17 11:27
[2018-08-21 20:47] LABS: Influenza A Molecular NEGATIVE (Negative); Influenza B Molecular NEGATIVE (Negative)
[2018-08-21] MEDS ORDERED: Budesonide Flexhaler 90 (NF) 90 MCG/ACT MDI INH SCH (21:00)
[2018-08-21] MEDS: Albuterol/Ipratropium NEB.SOL* Albuterol 2.5 MG/Ipratropium 0.5 MG 3 ML INH SCH (21:03)
[2018-08-21] MEDS ORDERED: Ibuprofen TAB* 600 MG PO PRN (21:13)
[2018-08-21] MEDS: Insulin LISPRO* 1 UNITS UNIT SUBCUT SCH (21:53)
[2018-08-21] MEDS: methylPREDNISolone SOD 40 MG* 1 ML VIAL IV SCH (21:53)
[2018-08-21] MEDS: guaiFENesin ER TAB 600 MG PO SCH (21:54)
[2018-08-21] MEDS: DOXYcycline CAP(*) 100 MG PO SCH (21:54)
[2018-08-21] MEDS: Enoxaparin(*) 40 MG/0.4 ML SYR SUBCUT SCH (21:54)
[2018-08-21 21:56] LABS: Urine Appearance Clear; Urine Bilirubin Negative (Negative); Urine Blood Negative (Negative); Urine Color Straw; Urine Glucose 1+(50 mg/dL) (Negative); Urine Ketones Negative (Negative); Urine Nitrite Negative (Negative); Urine Protein Negative (Negative); Urine Specific Gravity 1.005 (1.010-1.030); Urine Urobilinogen Negative (Negative)
[2018-08-21 22:03] LABS: Influenza A Molecular NEGATIVE (Negative); Influenza B Molecular NEGATIVE (Negative)
[2018-08-22] MEDS: Albuterol/Ipratropium NEB.SOL* Albuterol 2.5 MG/Ipratropium 0.5 MG 3 ML INH SCH ×4 (00:24→07:57)
[2018-08-22] MEDS: Mometasone 220 MCG MDI INH SCH ×2 (01:25→20:28)
[2018-08-22] MEDS: methylPREDNISolone SOD 40 MG* 1 ML VIAL IV SCH ×3 (04:03→21:42)
[2018-08-22] MEDS ORDERED: Albuterol/Ipratropium NEB.SOL* Albuterol 2.5 MG/Ipratropium 0.5 MG 3 ML INH PRN (08:02)
[2018-08-22] MEDS: DOXYcycline CAP(*) 100 MG PO SCH ×2 (09:24→21:42)
[2018-08-22] MEDS: guaiFENesin ER TAB 600 MG PO SCH ×2 (09:24→21:41)
[2018-08-22] MEDS: Lisinopril TAB* 10 MG PO SCH (09:24)
[2018-08-22] MEDS: Montelukast Sodium TAB* 10 MG PO SCH (09:24)
[2018-08-22] MEDS: Calcium/Vitamin D TAB 250/125* TAB PO SCH (09:24)
[2018-08-22] MEDS: Isosorbide Mononitrate ER TAB* 60 MG PO SCH (09:24)
[2018-08-22] MEDS: Atorvastatin* 10 MG TAB PO SCH (09:24)
[2018-08-22] MEDS: Insulin LISPRO* 1 UNITS UNIT SUBCUT SCH ×4 (09:24→21:55)
[2018-08-22] MEDS: FENOFIBRATE 160 MG PO SCH (09:25)
--- NOTE | 2018-08-22 12:48 | PN ---
Subjective Date of Service: 08/22/18 Interval History: On assessment patient is resting in bed with O2 in place. Reports "slight" improved since admission last night. Continues to have shortness of breath with exertion. Denies shortness of breath while lying flat. Continues to have occasional non productive cough. Reports this has been present for 3 to 4 weeks, but worsened over the last few days which led to her presentation to the ED. No chest pain, palpitations, nausea, vomiting, diarrhea, fever, chills. Objective Active Medications: Albuterol/Ipratropium (Duoneb (Albuterol 2.5 Mg/Ipratropium 0.5 Mg)) 1 neb INH Q4H PRN PRN Reason: SOB/WHEEZING Atorvastatin Calcium (Lipitor*) 5 mg PO QAM [facility]; Protocol Last Admin: 08/22/18 09:24 Dose: 5 mg Calcium/Vitamin D (Oscal D Tab 250/125*) [facility] [place] Last Admin: 08/22/18 09:24 Dose: 1 tab Dextrose (D50w Syringe 50 Ml*) 12.5 gm IV PUSH .FOR FS < 60 - SS PRN PRN Reason: FS < 60 Doxycycline Hyclate (Vibramycin Cap(*)) 100 mg PO BID [facility] Last Admin: 08/22/18 09:24 Dose: 100 mg Enoxaparin Sodium (Lovenox(*)) 40 mg SUBCUT Q24H [facility] Last Admin: 08/21/18 21:54 Dose: 40 mg Fenofibrate (Tricor(Nf)) 160 mg PO QAM [facility] Last Admin: 08/22/18 09:25 Dose: 160 mg Guaifenesin (Mucinex*) 600 mg PO BID [facility] Last Admin: 08/22/18 09:24 Dose: 600 mg Sodium Chloride (Ns 0.9% 1000 Ml*) 1,000 mls @ 75 mls/hr IV PER RATE [facility] Ibuprofen (Motrin Tab*) 600 mg PO Q8H PRN PRN Reason: PAIN Last Admin: 08/21/18 21:54 Dose: 600 mg Insulin Human Lispro (Humalog*) 0 units SUBCUT ACHS [facility]; Protocol Last Admin: 08/22/18 09:24 Dose: 4 units Isosorbide Mononitrate (Imdur Er Tab*) 60 mg PO DAILY [facility] Last Admin: 08/22/18 09:24 Dose: 60 mg Lisinopril (Prinivil Tab*) 10 mg PO DAILY [facility] Last Admin: 08/22/18 09:24 Dose: 10 mg Methylprednisolone Sodium Succinate (Solu-Medrol 40 Mg) 40 mg IV Q8H [facility] Last Admin: 08/22/18 04:03 Dose: 40 mg Mometasone Furoate (Asmanex 220 Mcg Mdi *) 1 puff INH 2100 [facility] Last Admin: 08/22/18 01:25 Dose: 1 puff Montelukast Sodium (Singulair Tab*) 10 mg PO QAM [facility] Last Admin: 08/22/18 09:24 Dose: 10 mg Vital Signs - 8 hr 08/22/18 08/22/18 08/22/18 07:21 08:00 11:57 Temperature 97.6 F 98.2 F Pulse Rate 90 83 87 Respiratory 18 20 18 Rate Blood Pressure 123/68 126/64 (mmHg) O2 Sat by Pulse 99 96 98 Oximetry Oxygen Devices in Use Now: Nasal Cannula Appearance: Comfortable, NAD Eyes: No Scleral Icterus Ears/Nose/Mouth/Throat: Clear Oropharnyx, Mucous Membranes Moist Neck: NL Appearance and Movements; NL JVP Respiratory: Symmetrical Chest Expansion and Respiratory Effort, - - Sporadic wheeze with mildly decreased air flow Cardiovascular: NL Sounds; No Murmurs; No JVD, RRR, No Edema Abdominal: NL Sounds; No Tenderness; No Distention Lymphatic: No Cervical Adenopathy Extremities: No Edema, No Clubbing, Cyanosis Skin: No Rash or Ulcers Neurological: Alert and Oriented x 3 Nutrition: Taking PO's Result Diagrams: 08/21/18 17:10 08/21/18 17:10 Additional Lab and Data: Laboratory Results - last 24 hr 08/21/18 08/21/18 08/21/18 17:10 17:10 17:10 WBC 7.5 RBC 5.30 Hgb 15.6 Hct 46 MCV 88 MCH 29 MCHC 34 RDW 14 Plt Count 227 MPV 10.3 Neut % (Auto) 48.6 Lymph % (Auto) 40.3 Lamar % (Auto) 7.9 Eos % (Auto) 2.3 Baso % (Auto) 0.9 Absolute Neuts (auto) 3.6 Absolute Lymphs (auto) 3.0 Absolute Monos (auto) 0.6 Absolute Eos (auto) 0.2 Absolute Basos (auto) 0.1 Absolute Nucleated RBC 0 Nucleated RBC % 0 INR (Anticoag Therapy) APTT ABG pH ABG pCO2 ABG pO2 ABG HCO3 ABG O2 Saturation ABG Base Excess Sodium 141 Potassium 3.9 Chloride 109 Carbon Dioxide 23 Anion Gap 9 BUN 18 Creatinine 1.18 H Est GFR ( Amer) 57.1 Est GFR (Non-Af Amer) 47.2 BUN/Creatinine Ratio 15.3 Glucose 98 POC Glucose (mg/dL) Lactic Acid 1.6 Calcium 9.7 Total Bilirubin 0.40 AST 19 ALT 19 Alkaline Phosphatase 64 Total Creatine Kinase 66 CK-MB (CK-2) 0.9 Troponin I 0.00 C-Reactive Protein 4.43 B-Natriuretic Peptide Total Protein 7.3 Albumin 4.8 Globulin 2.5 Albumin/Globulin Ratio 1.9 Urine Color Urine Appearance Urine pH Ur Specific Compton Urine Protein Urine Ketones Urine Blood Urine Nitrate Urine Bilirubin Urine Urobilinogen Ur Leukocyte Esterase Urine Glucose Influenza A (Rapid) Influenza B (Rapid) 08/21/18 08/21/18 08/21/18 17:10 17:10 20:23 WBC RBC Hgb Hct MCV MCH MCHC RDW Plt Count MPV Neut % (Auto) Lymph % (Auto) Lamar % (Auto) Eos % (Auto) Baso % (Auto) Absolute Neuts (auto) Absolute Lymphs (auto) Absolute Monos (auto) Absolute Eos (auto) Absolute Basos (auto) Absolute Nucleated RBC Nucleated RBC % INR (Anticoag Therapy) 0.82 APTT 34.0 ABG pH 7.41 ABG pCO2 34 L ABG pO2 69 L ABG HCO3 23.0 ABG O2 Saturation 94.8 ABG Base Excess -2.4 L Sodium Potassium Chloride Carbon Dioxide Anion Gap BUN Creatinine Est GFR ( Amer) Est GFR (Non-Af Amer) BUN/Creatinine Ratio Glucose POC Glucose (mg/dL) Lactic Acid Calcium Total Bilirubin AST ALT Alkaline Phosphatase Total Creatine Kinase CK-MB (CK-2) Troponin I C-Reactive Protein B-Natriuretic Peptide 32 Total Protein Albumin Globulin Albumin/Globulin Ratio Urine Color Urine Appearance Urine pH Ur Specific Compton Urine Protein Urine Ketones Urine Blood Urine Nitrate Urine Bilirubin Urine Urobilinogen Ur Leukocyte Esterase Urine Glucose Influenza A (Rapid) Influenza B (Rapid) 08/21/18 08/21/18 08/21/18 20:35 21:15 21:35 WBC RBC Hgb Hct MCV MCH MCHC RDW Plt Count MPV Neut % (Auto) Lymph % (Auto) Lamar % (Auto) Eos % (Auto) Baso % (Auto) Absolute Neuts (auto) Absolute Lymphs (auto) Absolute Monos (auto) Absolute Eos (auto) Absolute Basos (auto) Absolute Nucleated RBC Nucleated RBC % INR (Anticoag Therapy) APTT ABG pH ABG pCO2 ABG pO2 ABG HCO3 ABG O2 Saturation ABG Base Excess Sodium Potassium Chloride Carbon Dioxide Anion Gap BUN Creatinine Est GFR ( Amer) Est GFR (Non-Af Amer) BUN/Creatinine Ratio Glucose POC Glucose (mg/dL) 193 H Lactic Acid Calcium Total Bilirubin AST ALT Alkaline Phosphatase Total Creatine Kinase CK-MB (CK-2) Troponin I C-Reactive Protein B-Natriuretic Peptide Total Protein Albumin Globulin Albumin/Globulin Ratio Urine Color Straw Urine Appearance Clear Urine pH 5.0 Ur Specific Compton 1.005 L Urine Protein Negative Urine Ketones Negative Urine Blood Negative Urine Nitrate Negative Urine Bilirubin Negative Urine Urobilinogen Negative Ur Leukocyte Esterase Negative Urine Glucose 1+(50 mg/dl) A Influenza A (Rapid) Negative Influenza B (Rapid) Negative 08/21/18 08/22/18 21:50 07:59 WBC RBC Hgb Hct MCV MCH MCHC RDW Plt Count MPV Neut % (Auto) Lymph % (Auto) Lamar % (Auto) Eos % (Auto) Baso % (Auto) Absolute Neuts (auto) Absolute Lymphs (auto) Absolute Monos (auto) Absolute Eos (auto) Absolute Basos (auto) Absolute Nucleated RBC Nucleated RBC % INR (Anticoag Therapy) APTT ABG pH ABG pCO2 ABG pO2 ABG HCO3 ABG O2 Saturation ABG Base Excess Sodium Potassium Chloride Carbon Dioxide Anion Gap BUN Creatinine Est GFR ( Amer) Est GFR (Non-Af Amer) BUN/Creatinine Ratio Glucose POC Glucose (mg/dL) 225 H Lactic Acid Calcium Total Bilirubin AST ALT Alkaline Phosphatase Total Creatine Kinase CK-MB (CK-2) Troponin I C-Reactive Protein B-Natriuretic Peptide Total Protein Albumin Globulin Albumin/Globulin Ratio Urine Color Urine Appearance Urine pH Ur Specific Compton Urine Protein Urine Ketones Urine Blood Urine Nitrate Urine Bilirubin Urine Urobilinogen Ur Leukocyte Esterase Urine Glucose Influenza A (Rapid) Negative Influenza B (Rapid) Negative Microbiology and Other Data: Microbiology 08/22/18 10:10 Nasal Screen MRSA (PCR) - Final Nasal Mrsa Detected 08/21/18 21:30 Influenza Types A,B Antigen - Final Nasopharyngeal Specimen received for Influenza A/B Molecular testing 08/21/18 20:10 Influenza Types A,B Antigen - Final Nasal Specimen received for Influenza A/B Molecular testing Diagnostic Imaging: . Assess/Plan/Problems-Billing Assessment: 58 yr old female with pmh of COPD, asthma, htn, hld, DM (diet controlled); who presented to the ED with increase sob and cough and was found to have a copd exacerbation. Patient reports she has occasional exacerbation that require abx and steroids. In addition, she has been admitted to the hospital for copd exacerbation previously - Patient Problems (1) COPD exacerbation Comment: - Continue solumedrol 40mg IV Q 8hrs - Cont duonebs - Continue home singulair - Continue mucinex. - Cont doxycylcine - Negative flu (2) SIRS (systemic inflammatory response syndrome) Comment: - Resoved - No longer tachycardic or tachypnea. Previous tachycardia and tachypnea suspected due to COPD exacerbation - No leukocytosis - Afebrile (3) HTN (hypertension) Comment: - Cont linisopril and isosorbide nitrate (4) Non-insulin dependent type 2 diabetes mellitus Comment: - Diet controlled at home - Sliding scale was added while patient is admitted and on steroids for COPD exacerbation - Cont sliding scale insulin (5) Full code status (6) DVT prophylaxis Comment: - Cont Lovenox subQ Status and Disposition: Discharge home when medically stable. Possibly 1-2 more days Attending: Swati Nolasco
[2018-08-22] MEDS: NS 0.9% 1000 ML* 1,000 ML IV SCH (13:13)
[2018-08-22] MEDS: Enoxaparin(*) 40 MG/0.4 ML SYR SUBCUT SCH (21:43)
[2018-08-23] MEDS: NS 0.9% 1000 ML* 1,000 ML IV SCH (04:00)
[2018-08-23] MEDS: methylPREDNISolone SOD 40 MG* 1 ML VIAL IV SCH (04:31)
[2018-08-23 06:52] LABS: BUN/Creatinine Ratio 19.4 (8-20); Calcium 9.2 mg/dL (8.6-10.3); EGFR African American 66.8 (>60); EGFR Non-African American 55.2 (>60)
[2018-08-23] MEDS ORDERED: predniSONE TAB* 50 MG PO SCH (09:00)
[2018-08-23 09:01] VITALS: BP 145/82
[2018-08-23] MEDS: DOXYcycline CAP(*) 100 MG PO SCH (09:44)
[2018-08-23] MEDS: Insulin LISPRO* 1 UNITS UNIT SUBCUT SCH (09:45)
[2018-08-23] MEDS: Atorvastatin* 10 MG TAB PO SCH (09:45)
[2018-08-23] MEDS: Isosorbide Mononitrate ER TAB* 60 MG PO SCH (09:45)
[2018-08-23] MEDS: Calcium/Vitamin D TAB 250/125* TAB PO SCH (09:45)
[2018-08-23] MEDS: Montelukast Sodium TAB* 10 MG PO SCH (09:45)
[2018-08-23] MEDS: Lisinopril TAB* 10 MG PO SCH (09:45)
[2018-08-23] MEDS: guaiFENesin ER TAB 600 MG PO SCH (09:45)
[2018-08-23] MEDS: FENOFIBRATE 160 MG PO SCH (10:23)
--- NOTE | 2018-08-26 01:45 | DS ---
CC: Alexandro Roca NP * DISCHARGE SUMMARY: DATE OF ADMISSION: 08/21/18 DATE OF DISCHARGE: 08/23/18 PRIMARY CARE PROVIDER: Alexandro Roca NP. MY ATTENDING WHILE IN HOSPITAL: Dr. Jodi Vazquez.* (DICTATED BY SHANICE ABBOTT) PRIMARY DISCHARGE DIAGNOSIS: Chronic obstructive pulmonary disease exacerbation. SECONDARY DISCHARGE DIAGNOSES: 1. Gastroesophageal reflux disease. 2. Diabetes mellitus type 2. 3. Hypertension. STUDIES DONE WHILE IN THE HOSPITAL: Chest x-ray from 08/21/18, read as low lung volumes, lungs are clear, phase of respiration. MEDICATIONS AT DISCHARGE: 1. Lovastatin 20 mg p.o. q.a.m. 2. Singulair 10 mg p.o. q.a.m. 3. Jose Manuel-D 500/1.25 one tab p.o. q.a.m. 4. Fenofibrate 160 mg p.o. q.a.m. 5. Ventolin inhaler 1 puff inhalation q.4 hours as needed. 6. Ibuprofen 800 mg p.o. t.i.d. as needed. 7. Ranitidine 150 mg p.o. b.i.d. 8. Pantoprazole 40 mg p.o. daily. 9. Pulmicort 1 puff inhalation b.i.d. 10. EpiPen 1 injection subcutaneous once as needed. 11. Imdur 60 mg p.o. daily. 12. Lisinopril 10 mg p.o. daily. 13. Glycopyrrolate/formoterol 10.7 g inhalation as needed. 14. Dexamethasone 6 mg p.o. daily x5. 15. Doxycycline 100 mg p.o. b.i.d. x10. 16. Guaifenesin 600 mg p.o. b.i.d. x20. 17. Ventolin 2.5 mg inhalation q.12 hours as needed. 18. Ipratropium/albuterol 3 mL inhalation t.i.d. as needed. HOSPITAL COURSE: This is a brief summary of patient's presentation. For more details, please see the admission notes from Dr. Poly Jain on 08/21/18. In brief, the patient is a 58-year-old female with past medical history significant for the above who presented to the emergency department with shortness of breath for several hours prior to admission with wheezing and cough. Patient had no sick contacts. Patient had no signs of pneumonia. Patient was negative for flu. Patient's ABG was unremarkable. Patient was admitted to the hospital for COPD exacerbation. Patient was started on steroids and had hyperglycemia, but this was controlled with insulin while inpatient. Patient's vital signs were, otherwise, unremarkable. Patient needed oxygen intermittently through her hospitalization, but was able to be weaned off on 08/23/18. Patient was able to walk to the bathroom and back with no issues, and stated she felt back to her baseline. Patient was discharged on steroids, doxycycline and patient was stable medically for discharge on 08/23/18. PHYSICAL EXAM ON THE DAY OF DISCHARGE: General: The patient is a 58-year-old female who appears as stated age and sitting comfortably on the bed in no acute distress. Vital Signs: Temperature 97.6, pulse rate 91, respiratory rate 16, oxygen saturation 97% on room air, blood pressure 145/82. HEENT: Head: Normocephalic, atraumatic. Sclerae are anicteric. No conjunctival injection. Nasal mucosa moist. Oral mucosa moist. No pharyngeal erythema, discharge, or exudate. Neck: Supple, nontender. No lymphadenopathy. No carotid bruits auscultated. No JVD. Cardiac: Regular rate and rhythm. No clicks, murmurs, gallops, or rubs. Pulses are 2+ in the bilateral dorsalis pedis, posterior tibialis and radialis areas. Respiratory: Clear to auscultation bilaterally. No wheezes, rales, or rhonchi. Good air exchange bilaterally. Abdomen: Soft, nontender, nondistended. Bowel sounds present and normoactive in all 4 quadrants. No hepatosplenomegaly. No abdominal bruits auscultated. No hepatojugular reflux. Genitourinary: No suprapubic or CVA tenderness. Neuro: Cranial nerves II through XII are intact. No focal deficits. Alert and oriented x3. Psychiatric: Pleasant and cooperative. DISCHARGE PLAN: Patient will be discharged to home. Patient will have 5 days of dexamethasone as above as well as doxycycline for treatment of her COPD exacerbation. Patient will have her inhalers as previously prescribed. Patient should follow up with primary care provider within 1 week for general medical management. Patient should follow up with a form tamper if she has never seen one. Patient will be continued on her other medications. Patient should use caution when taking ibuprofen as this can provoke asthma attacks and particularly avoid its use while she is on dexamethasone due to concern for ulcers. Patient will be continued on her Singulair. Patient should have a heart healthy diet without caffeine. Patient should engage in activity as tolerated. TIME SPENT: Approximately 60 minutes were spent on the discharge of the patient , 20 of which were spent in [id number] with the patient obtaining history and physical and discussing treatment plan. SHANICE ABBOTT [id number]/CPS #: [id number] MARISSA
== END 2018-08-23 10:40 | disposition home or self-care (01) | DRG 191 ==
LOC: ED 17:34 → MED 19:35
PROVIDERS: ADMIT Internal Medicine; ATTEND Student in an Organized Health Care Education/Training Program
DX: J44.1 Chronic obstructive pulmonary disease with (acute) exacerbation (principal); R65.10 Systemic inflammatory response syndrome (SIRS) of non-infectious origin without acute organ dysfunction; I10 Essential (primary) hypertension; E11.9 Type 2 diabetes mellitus without complications; K21.9 Gastro-esophageal reflux disease without esophagitis; E78.00 Pure hypercholesterolemia, unspecified; K57.90 Diverticulosis of intestine, part unspecified, without perforation or abscess without bleeding; K59.00 Constipation, unspecified; M19.90 Unspecified osteoarthritis, unspecified site; E66.9 Obesity, unspecified; M81.0 Age-related osteoporosis without current pathological fracture; M41.9 Scoliosis, unspecified; Z86.14 Personal history of Methicillin resistant Staphylococcus aureus infection; Z98.51 Tubal ligation status; Z82.5 Family history of asthma and other chronic lower respiratory diseases; Z88.8 Allergy status to other drugs, medicaments and biological substances; Z88.1 Allergy status to other antibiotic agents; Z82.49 Family history of ischemic heart disease and other diseases of the circulatory system; Z83.3 Family history of diabetes mellitus; Z68.33 Body mass index [BMI] 33.0-33.9, adult
CPT/HCPCS: 36415; 71045; 80048; 80053; 81003; 82550; 82553; 82803; 83605; 83880; 84484; 85025; 85610; 85730; 86140; 87641; 93005; 94640; 99284; A9270-GY; J1650; J2920; J2930; J7512; J7611

== ENCOUNTER 2018-10-20 16:08 | Inpatient (IN) | payer MEDICARE, MEDICAID ==
--- NOTE | 2018-10-20 16:25 | ED ---
Abdominal Pain/Female - HPI Summary HPI Summary: This pt is a 58 y/o female presenting to [facility] via EMS for abd pain that began today. Pt reports her abd pain began today after eating mashed potatoes. She describes a severe cramping pain that is diffusely located on her abdomen. Her abd pain radiates to her chest and back. Additionally pt reports nausea and vomiting. Pt notes she has never had this pain in the past. She wears braces on bilateral legs because her feet curve. PMHx includes diverticulitis and pancreatitis. - History of Current Complaint Stated Complaint: ABD PAIN PER EMS Time Seen by Provider: 10/20/18 16:17 Hx Obtained From: Patient Onset/Duration: Lasting Hours, Still Present Timing: Hours Severity Currently: Severe Pain Intensity: 10 Pain Scale Used: 0-10 Numeric Location: Diffuse Radiates: Yes Radiates to: Back, Chest Character: Cramping Aggravating Factor(s): Nothing Alleviating Factor(s): Nothing Associated Signs and Symptoms: Positive: Nausea, Vomiting. Negative: Fever Allergies/Adverse Reactions: Allergies Allergy/AdvReac Type Severity Reaction Status Date / Time Adhesive Tape Allergy Mild Rash Verified 09/20/18 09:44 amoxicillin [From Augmentin] Allergy Rash Verified 09/20/18 09:44 azithromycin Allergy Rash And Verified 09/20/18 09:44 Itching clavulanic acid Allergy Rash Verified 09/20/18 09:44 [From Augmentin] hydromorphone [From Dilaudid] Allergy Rash Verified 09/20/18 09:44 morphine Allergy Difficulty Verified 09/20/18 09:44 Breathing moxifloxacin [From Avelox] Allergy Rash Verified 09/20/18 09:44 tapentadol [From Nucynta] Allergy Rash Verified 09/20/18 09:44 tolmetin [From Tolectin] Allergy Rash Verified 09/20/18 09:44 valdecoxib [From Bextra] Allergy Rash Verified 09/20/18 09:44 PERFUMES Allergy Severe DYSPNEA Uncoded 09/20/18 09:44 PMH/Surg Hx/FS Hx/Imm Hx Endocrine/Hematology History: Reports: Hx Diabetes - no meds Denies: Hx Anticoagulant Therapy, Hx Blood Disorders, Hx Blood Transfusions, Hx Bone Marrow Disease, Hx Systemic Lupus Erythematosus, Hx Sickle Cell Disease , Hx Thyroid Disease, Hx Anemia, Hx Unexplained Bleeding Cardiovascular History: Reports: Hx Hypercholesterolemia, Hx Hypotension, Hx Hypertension, Other Cardiovascular Problems/Disorders - DIABETIC Denies: Hx Aneurysm, Hx Angina, Hx Angioplasty, Hx Auto Implanted Cardiovert Defib, Hx Cardiac Arrest, Hx Cardiomegaly, Hx Congenital Heart Disease, Hx Congestive Heart Failure, Hx Coronary Artery Disease, Hx Deep Vein Thrombosis, Hx Pacemaker/ICD, Hx Peripheral Vascular Disease, Hx Rheumatic Fever, Hx Syncope , Hx Valvular Heart Disease Respiratory History: Reports: Hx Asthma - USES INHALERS, Hx Chronic Bronchitis, Hx Chronic Obstructive Pulmonary Disease (COPD), Hx Pneumonia, Hx Seasonal Allergies, Other Respiratory Problems/Disorders Denies: Hx Cystic Fibrosis, Hx Lung Cancer, Hx Pleural Effusion, Hx Pulmonary Edema, Hx Pulmonary Embolism, Hx Sleep Apnea GI History: Reports: Hx Diverticulosis, Hx Gastroesophageal Reflux Disease - ON MEDICATION FOR STATES CONTROLLED, Other GI Disorders - CHRONIC CONSTIPATION Denies: Hx Ulcer History: Denies: Hx Acute Renal Failure, Hx Benign Prostatic Hyperplasia, Hx Chronic Renal Failure, Hx Dialysis, Hx Kidney Infection, Hx Kidney Stones, Hx Renal Disease, Other Problems/Disorders Musculoskeletal History: Reports: Hx Arthritis, Hx Back Problems, Hx Bursitis, Hx Osteoporosis, Hx Scoliosis, Hx Tendonitis, Other Musculoskeletal History - DEGENERATIVE DISC DISEASE Denies: Hx Rheumatoid Arthritis, Hx Congenital Bone Abnormalities, Hx Fibromyalgia, Hx Gout, Hx Orthopedic Injury Sensory History: Reports: Hx Contacts or Glasses - GLASSES, Hx Hearing Problem Denies: Hx Cataracts, Hx Eye Injury, Hx Eye Prosthesis, Hx Glaucoma, Hx Macular Degeneration, Hx Vision Problem, Hx Deafness, Hx Hearing Aid, Other Sensory Impairments Opthamlomology History: Reports: Hx Contacts or Glasses - GLASSES Denies: Hx Cataracts, Hx Eye Injury, Hx Eye Prosthesis, Hx Glaucoma, Hx Macular Degeneration, Hx Vision Problem, Other Sensory Impairments Neurological History: Reports: Hx Headaches - reportedly d/t degenerative disc disease Denies: Hx Dementia Psychiatric History: Denies: Hx Anxiety, Hx Attention Deficit Hyperactivity Disorder, Hx Eating Disorder, Hx Depression, Hx Panic Disorder, Hx Post Traumatic Stress Disorder, Hx Inpatient Treatment, Hx Community Mental Health Tx, Hx Schizophrenia, Hx Bipolar Disorder, Hx Suicide Attempt, Hx Substance Abuse, Other Psychiatric Issues/Disorders - Cancer History Hx Chemotherapy: No Hx Radiation Therapy: No Hx Palliative Cancer Treatment: No - Surgical History Surgery Procedure, Year, and Place: TUBAL LIGATION in 1988. hole in ear closed. tonsils as a child. RIGHT ULNAR NERVE TRANSPOSITON 05/14 [facility]. ulnar nerve repair Hx Anesthesia Reactions: No - Immunization History Date of Tetanus Vaccine: Unk Date of Influenza Vaccine: fall 2017 Infectious Disease History: Reports: Hx of Known/Suspected MRSA, Hx Shingles - [id number], History Other Infectious Disease - influenza A Denies: Hx Clostridium Difficile, Hx Hepatitis, Hx Human Immunodeficiency Virus (HIV), Hx Tuberculosis - Family History Known Family History: Positive: Cardiac Disease, Hypertension, Diabetes, Respiratory Disease - asthma - Social History Alcohol Use: None Hx Substance Use: No Substance Use Type: Reports: None Hx Tobacco Use: No Smoking Status (MU): Never Smoked Tobacco Have You Smoked in the Last Year: No Review of Systems Negative: Fever, Chills Positive: Abdominal Pain, Vomiting, Nausea All Other Systems Reviewed And Are Negative: Yes Physical Exam - Summary Physical Exam Summary: VITAL SIGNS: Reviewed. GENERAL: Patient is a well-developed and nourished female who is in distress secondary to pain. HEAD AND FACE: Normocephalic and atraumatic. EYES: PERRLA, EOMI x 2, No injected conjunctiva. EARS: Hearing grossly intact. Ear canals and tympanic membranes are WNL. MOUTH: Oropharynx within normal limits. NECK: Supple, trachea is midline, no adenopathy, no JVD. CHEST: Symmetric, no tenderness at palpation LUNGS: Clear to auscultation bilaterally. No wheezing or crackles. CVS: RRR, S1 and S2 present, no murmurs or gallops appreciated. ABDOMEN: Soft, diffuse abdominal tenderness. No signs of distention. Positive bowel sounds. No rebound no guarding, and no masses palpated. No abdominal bruit or pulsations. EXTREMITIES: FROM in all major joints, no edema, no cyanosis or clubbing. NEURO: Alert and oriented x 3. No acute neurological deficits. Speech is normal. SKIN: Dry and warm Triage Information Reviewed: Yes Vital Signs On Initial Exam: Initial Vitals Temp Pulse Resp BP Pulse Ox 98.6 F 53 17 120/59 88 10/20/18 16:20 10/20/18 16:20 10/20/18 16:20 10/20/18 16:20 10/20/18 16:20 Vital Signs Reviewed: Yes Diagnostics - Laboratory Result Diagrams: 10/20/18 16:30 10/20/18 16:30 Lab Statement: Any lab studies that have been ordered have been reviewed, and results considered in the medical decision making process. - CT Abdomen/Pelvis CT CT Interpretation Completed By: Radiologist Summary of CT Findings: IMPRESSION: 1. There is oral contrast in the distal esophagus, cannot exclude gastroesophageal reflux. 2. New since the prior exam is edematous change involving the pancreas with peripancreatic fat stranding and nonloculated fluid consistent with acute pancreatitis without loculated fluid collections. 3. There is colonic diverticulosis without evidence for acute diverticulitis. Dr. Rosales has reviewed this report. - EKG 16:54 Cardiac Rate: NL - at 60 bpm EKG Rhythm: Sinus Rhythm EKG Comparison: No Significant Change - Similar to previous EKG on 08/21/18. Summary of EKG Findings: No ST elevations. Abdominal Pain Fem Course/Dx - Course Course Of Treatment: This patient is a 58-year-old female who presents to the emergency department with chief complaint of having abdominal pain. The pain is diffuse. Positive nausea without vomiting, denies any diarrhea or constipation. The patient reports that she has history of pancreatitis and diverticulitis. In the physical exam the patient has diffuse abdominal pain but the abdomen is soft. Blood work shows a wbcs of 27.7, hemoglobin 14.5, hematocrit 44 and platelets 244. Creatinine is 1.38, GFR is 39.4. Troponin 0.00. In the ED course the patient was given IV fluids, sulfa for nausea and vomiting and morphine for the pain. Lipase is 7470, amylase is 2282. Therefore this is consistent with an acute pancreatitis. Abdominal and pelvic CT IMPRESSION: 1. There is oral contrast in the distal esophagus, cannot exclude. gastroesophageal reflux. 2. New since the prior exam is edematous change involving the pancreas with peripancreatic fat stranding and nonloculated fluid consistent with acute pancreatitis without loculated fluid collections. 3. There is colonic diverticulosis without evidence for acute diverticulitis. The patient was given more IV fluids, Zofran for nausea and vomiting and morphine for the pain. At this time I discussed my physical exam, findings and test results with Dr. Armendariz from the hospitalist services who accepted the patient for admission. - Diagnoses Provider Diagnoses: Acute pancreatitis - Provider Notifications Discussed Care Of Patient With: Azucena Armendariz - hospitalist Time Discussed With Above Provider: 18:51 Instructed by Provider To: Admit As Inpatient Discharge - Sign-Out/Discharge Documenting (check all that apply): Patient Departure - Admit to [facility] Patient Received Moderate/Deep Sedation with Procedure: No - Discharge Plan Condition: Stable Disposition: ADMITTED TO [facility] Referrals: Alexandro Roca, [facility] [Primary Care Provider] - - Billing Disposition and Condition Condition: STABLE Disposition: Admitted to [facility] - Attestation Statements Document Initiated by Jacky: Yes Documenting Scribe: Betty Nettles Provider For Whom Jacky is Documenting (Include Credential): Donald Rosales MD Scribe Attestation: Betty Davis, scribed for Donald Rosales MD on 10/20/18 at 1856. Scribe Documentation Reviewed: Yes Provider Attestation: The documentation as recorded by the miguelibBetty nj accurately reflects the service I personally performed and the decisions made by me, Dnoald Rosales MD Status of Scribe Document: Viewed
[2018-10-20] MEDS ORDERED: Ondansetron ODT TAB* 4 MG PO ONE (16:29)
[2018-10-20] MEDS ORDERED: NS 0.9% 1000 ML** 1,000 ML IV ONE ×2 (16:29→18:33)
[2018-10-20] MEDS ORDERED: Morphine 4 MG/ML VIAL (1 ml) 4 MG/ML VIAL IV ONE (16:29)
--- OUTSIDE RECORDS SUMMARY | 2018-10-20 16:30 | XMS REPORT | Continuity of Care Document ---
:1960 External Reference #:[id number] Author Name Rita Dominguez Care Team Providers Name Role Phone Nancie Egan MD Primary Care Physician Unavailable Payers Date Identification Numbers Payment Provider Subscriber Policy Number: [id number] Medicare Marie Zhou PayID: [id number] [address] [place] [address] Policy Number: [id number] Medicaid Marie Davenportt PayID: [id number] [address] [place] [address] Effective: 2011 Policy Number: [id number] Medicare Marie Zhou Expires: 2018 PayID: [id number] [address] [facility] [place] [address] Advance Directives Description No Information Available Problems [...] hypertension Robert Ortega MD Active Onset: 06/09/2018 Type 2 diabetes mellitus Robert Ortega MD Active Onset: 12/05/2011 Pancreatitis Emiliano Quintana MD Active Note: single event (as of 08/28/18) and idiopathic; gallbladder US normal and LFTs normal; no alcohol intake; pt says her medicines were presumed cause; no discharge summary in the [facility] database Family History Date Family Member(s) Observation Comments General Cancer General Diabetes General Hypertension Father Unknown Mother Seizure Disorder Mother Cerebrovascular Accident (CVA) Mother Diabetes Social History Type Date Description Comments Sex Unknown Marital Status Lives With granddaughter Occupation Disabled Tobacco Use Start: Unknown Never Smoked Cigarettes Smoking Status Reviewed: 09/01/18 Never Smoked Cigarettes ETOH Use Denies alcohol [...] Form Strength Qnty SIG Indications Ordering Provider Glucose Meter 09/01 Active Strips 90uni for use 1-3 Alexandro Test Strips ts times daily MARC Roca Advanced Suprep Bowel 08/29 Active Solution 17.5-3.13 354un Take Emiliano Rebolledo. Prep -1.6GM/17 its according Mariano, 7ML to your MD physician's instruction s the day before the procedure. Split the dose as directed. Magnesium 08/29 Active Solution 1.745GM/3 592ml drink the Emiliano Rebolledo. Citrate 0ML entire natalia Quintana MD after dinner three days and two days before your procedure. Lisinopril 07/31 Active Tablets 10mg 30tab 1 by mouth I10 Alexandro /2018 s every day MARC Roca Donut Pillow 07/31 Active 1unit For use M53.3 Alexandro /2018 s when MARC Roca sitting Cardizem CD 07/08 Active Caps ER 120mg 120ca 2 by mouth I10 Tracie S. /2017 24HR ps every day Gene N.P. Lovastatin 07/06 Active Tablets 40mg 30tab by mouth Alexandro /2017 s every night MARC Roca at bedtime Blood Pressure 07/01 Active Misc 1unit check bp I10 Alexandro Monitor Auto /2017 s three times MARC Roca Inflate weekly at home Freestyle Lite 06/09 Active Device 1unit for blood E11.9 Robert Ortega Blood Glucose s glucose Monitoring monitoring System once daily for diabetes mellitus Blood Pressure 06/09 Active Kit 1unit check twice R55 Robert Ortega Kit /2017 s a day for hypertbri n and record in a log book Pulmicort 04/09 Active Aerosol 90mcg/Act 3unit inhale one J45.909 Temi Flexhaler s puff by MD Reinaldo mouth twice a day Albuterol Active Nebulizer (2.5mg/3M 75ml 1 vial via Alexandro Sulfate /0000 L) 0.083% nebulizer 4 MARC Roca times daily as needed Epipen 2-Gulshan Active Solution 0.3mg/0.3 1unit use as Unknown / Auto-Injec ML s directed t Ipratropium Active Solution 0.5-2.5(3 90ml 1 vial in Alexandro [place]/Albutero /0000 )mg/3ML nebulizer MARC Roca l Sulfate three times a day as needed for asthma Montelukast Active Tablets 10mg 1 by mouth Unknown Sodium /0000 every day Ventolin HFA Active Aerosol 108(90Bas 1unit 2 puffs by Unknown /0000 e) s mouth four mcg/Act times a day as needed Ranitidine 150 Active Tablets 150mg one by Unknown Maximum Strength /0000 mouth twice a day Pantoprazole Active Tablets DR 40mg take 1 Unknown Sodium /0000 tablet by mouth once daily Fenofibrate Active Tablets 160mg 1 by mouth Unknown /0000 every day Isosorbide Active Tablets ER 60mg 1 by mouth Unknown Mononitrate ER /0000 24HR every day Bevespi Active Aerosol 9-4.8mcg/ 2 puffs Unknown Aerosphere /0000 Act inhalation twice daily. Guaifenesin Active Tablets 200mg take 3 tabs Unknown /0000 twice a day for 20 days Calcium 00/00 Active Tablets 500-125mg 1 by mouth Unknown 500/Vitamin D /0000 -Unit daily Ibuprofen Active Tablets 800mg 1 by mouth Unknown three times a day as needed Prednisone 09/01 Hx Tablets 10mg 20tab take 4 tab J44.1 s daily x 2 Abelino [employer] - days then 3 09/12 tab daily x 2 days, then 2 tab daily for 2 day, and 1 tab for 2 day. Dexamethasone 08/21 Hx Tablets 2mg 3 tablets daily for 5 - days. 08/28 Lisinopril 07/01 Hx Tablets 5mg 30tab 1 by mouth I10 s every day MARC Roca - 07/31 Tramadol HCL 10/14 Hx Tablets 50mg 30tab 1-2 tablets s by mouth MD Leonie - every 6 04/09 hours needed pain Bevespi 10/07 Hx Aerosol 9-4.8mcg/ 17.7g 2 puffs J44.1 Tracie S. Aerosphere /2017 Act m inhalation Foster, - twice N.P. 05/07 daily. Tramadol 05/23 [...] mouth at 02/06 bedtime /2016 Advair Diskus 00/00 Hx Unknown / - 01/14 Butrans 0000 Hx Patches 10mcg/HR 4unit topical Unknown / Weekly s q7days - 01/17 Calcium 500+D 00/00 Hx daily Unknown / - 06/04 Celebrex Hx Capsules 200mg 30cap 1 by mouth Unknown / s every day - 01/14 Gabapentin Hx [...] /Dose dose by - mouth twice 04/09 Furosemide Hx Tablets 20mg take 1 Unknown /0000 tablet by - mouth every 05/07 morning needed for edema Escitalopram Hx Tablets 10mg take 1 Unknown Oxalate /0000 tablet by - mouth once 05/07 Vitamin D3 Hx Capsules [id number] Unknown /0000 - 07/07 Cyclobenzaprine Hx Unknown HCL /0000 - 05/07 Doxycycline Hx Tablets 100mg 1 by mouth Unknown Hyclate /0000 twice a day - X 10 days 08/27 Medications Administered in Office Medication Date Status Form Strength Qnty SIG Indications Ordering Provider Inj, Administered Injection Jason S. Regadenoson, 018 DO Reece 0.1 MG FACC Technetium TC Administered Injection Jason S. 99M 018 NewellDO Tetrofosmin, FACC Per Unit Dose Up To 40 Millicuries Depomedrol Administered Injection Marcelo 80MG 014 Morgan Gamboa Immunizations CPT Code Status Date Vaccine Lot # [id number] Given 07/01/2018 Influenza Virus Vaccine, Quadrivalent, Split, [id number] Preservative Free 65201 Given 05/07/2016 Influenza Virus 3Yrs & Over Vital Signs Date Vital Result Comment 09/01/2018 10:45am Height 61 inches 5'1" Weight 142.50 lb Heart Rate 100 /min BP Systolic 120 mmHg BP Diastolic 60 mmHg Body Temperature 99.2 F O2 % BldC Oximetry 98 % BMI (Body Mass Index) 26.9 kg/m2 08/28/2018 12:00pm Height 61 inches 5'1" Weight 159.00 lb Heart Rate 69 /min BP Systolic 130 mmHg BP Diastolic 79 mmHg Respiratory Rate 16 /min Body Temperature 97.2 F O2 % BldC Oximetry 97 % BMI (Body Mass Index) 30.0 kg/m2 07/31/2018 9:02am Height 61 inches 5'1" Weight [...] Date Facility Test Result H/L Range Note Laboratory test 09/19/2018 [facility] SEE RESULT [address] [place] [address] [phone] CBC Auto Diff 08/21/2018 [facility] White Blood 7.5 10^3/uL N 3.5-10.[address] [place] [address] [phone] Red Blood Count 5.30 10^6/uL N 4.00-5.40 Hemoglobin 15.6 g/dL N 12.0-16.0 Hematocrit 46 % N 35-47 Mean Corpuscular Volume 88 fL N 80-97 Mean Corpuscular Hemoglobin 29 pg N 27-31 Mean Corpuscular HGB Conc 34 g/dL N 31-36 Red Cell Distribution Width 14 % N 10.5-15 Platelet Count 227 10^3/uL N 150-450 Mean Platelet Volume 10.3 fL N 7.4-10.4 Abs Neutrophils 3.6 10^3/uL N 1.5-7.7 Abs Lymphocytes 3.0 10^3/uL N 1.0-4.8 Abs Monocytes 0.6 10^3/uL N 0-0.8 Abs Eosinophils 0.2 10^3/uL N 0-0.6 Abs Basophils 0.1 10^3/uL N 0-0.2 Abs Nucleated RBC 0 10^3/uL Granulocyte % 48.6 % Lymphocyte % 40.3 % Monocyte % 7.9 % Eosinophil % 2.3 % Basophil % 0.9 % Nucleated Red Blood Cells % 0 Urinalysis Profile 08/21/2018 [facility] Urine Color Straw [address] [place] [address] [phone] Urine Appearance Clear Urine Specific [place] 1.005 Low 1.010-1.030 Urine pH 5.0 N 5-9 Urine Urobilinogen Negative Negative Urine Ketones Negative Negative Urine Protein Negative Negative Urine Leukocytes Negative Negative Urine Blood Negative Negative Urine Nitrite Negative Negative Urine Bilirubin Negative Negative Urine Glucose 1+(50 mg/dL) Abnormal Negative CKMB 08/21/2018 [facility] CKMB ng/mL 0.9 ng/mL N 0.6-6.3 [address] [place] [address] [phone] Laboratory test 08/21/2018 [facility] Creatine 66 U/L N 10- 223 finding [address] [facility] Kinase(CK) [place] [address] [phone] C Reactive Protein 4.43 mg/L N <8.01 Troponin-I (TnI) 0.00 ng/mL <0.04 2 Comp Metabolic Panel 08/21/2018 [facility] Sodium 141 mmol/L N 135-145 [address] [place] [address] [phone] Potassium 3.9 mmol/L N 3.5-5.0 Chloride 109 mmol/L N 101-111 Co2 Carbon Dioxide 23 mmol/L N 22-32 Anion Gap 9 mmol/L N 2-11 Glucose 98 mg/dL N 70-100 Blood Urea Nitrogen 18 mg/dL N 6-24 Creatinine 1.18 mg/dL High 0.51-0.95 BUN/Creatinine Ratio 15.3 N 8-20 Calcium 9.7 mg/dL N 8.6-10.3 Total Protein 7.3 g/dL N 6.4-8.9 Albumin 4.8 g/dL N 3.2-5.2 Globulin 2.5 g/dL N 2-4 Albumin/Globulin Ratio 1.9 N 1-3 Total Bilirubin 0.40 mg/dL N 0.2-1.0 Alkaline Phosphatase 64 U/L N 34-104 Alt 19 U/L N 7-52 Ast 19 U/L N 13-39 Egfr Non- 47.2 >60 Egfr 57.1 >60 3 Laboratory test 08/21/2018 [facility] Partial 34.0 seconds N 26.0-36.[address] [place] [address] PTT [phone] Lactic Acid 1.6 mmol/L N 0.5-2.0 4 B-Type Natriuretic Peptide BNP 32 pg/mL <=100 Inr/Protime 08/21/2018 [facility] Inr 0.82 N 0.77-1.[address] [place] [address] [phone] Lipid Profile 07/01/2018 [facility] Triglycerides 178 mg/dL 5 (Trig/Chol/HDL) [address] [place] [address] [phone] Cholesterol 193 mg/dL 6 HDL Cholesterol 42.6 mg/dL 7 LDL Cholesterol 115 mg/dL 8 Comp Metabolic Panel 07/01/2018 [facility] Sodium 144 mmol/L N 135-[address] [place] [address] [phone] Potassium 4.5 mmol/L N 3.5-5.0 Chloride 107 [...] Egfr Non- 62.1 >60 Egfr 75.2 >60 9 Urine Microalbumin 07/01/2018 [facility] Ur Microalbumin 20.[address] (mg/L) [place] [address] [phone] Urine Creatinine 65.42 mg/dL Urine Microalbumin/Creatinine 31.0 N <31 Laboratory test 07/01/2018 [facility] Vitamin D Total 30.3 N 20-[address] 25(Oh) ng/[place] [address] [phone] Laboratory test 07/01/2018 [facility] In House Hemoglobin A1c 6.1 5-7 finding Laboratory test 10/14/2017 [facility] Point of Care 118 mg/dL High 70-100 [address] [place] [address] [phone] Laboratory test 05/23/2017 [facility] Point of Care 111 mg/dL High 70-100 [address] [place] [address] [phone] Laboratory test 05/23/2017 [facility] Point of Care 109 mg/dL High 70-100 [address] [place] [address] [phone] Comp Metabolic 03/17/2014 [facility] Sodium 139 N 133-[address] mmol/[place] [address] [phone] Potassium 3.8 mmol/L N 3.7-5.6 Chloride 106 mmol/L N 101-111 Co2 Carbon Dioxide 25 mmol/L N 22-32 Anion Gap 8 mmol/L N 2-11 Glucose 193 mg/dL High 70-100 Blood Urea Nitrogen 17 mg/dL N 6-24 Creatinine 0.97 mg/dL High 0.51-0.95 BUN/Creatinine Ratio 17.5 N 8-20 Calcium 9.0 mg/dL N 8.6-10.3 13 Total Protein 6.8 g/dL N 6.4-8.9 Albumin 4.3 g/dL N 3.2-5.2 Globulin 2.5 g/dL N 2-4 Albumin/Globulin Ratio 1.7 N 1-3 Total Bilirubin 0.50 mg/dL N 0.2-1.0 Alkaline Phosphatase 88 U/L N 34-104 Alt 13 U/L N 7-52 Ast 16 U/L N 13-39 Egfr Non- 60.3 N >60 Egfr 77.6 N >60 14 CBC Auto Diff 03/17/2014 [facility] White Blood 8.2 10^3/uL N 4.8-10.[address] [place] [address] [phone] Red Blood Count 5.12 10^6/uL N 4.0-5.4 [...] Red Blood Cells % 0.1 N 1 SEE RESULT BELOW Name: ZHOUPARDEEP RebolledoMARISA Davis : [address]: Emiliano Quintana MD Acct: [id number] Unit: [id number] AGE: 58 Location: ENDO Re09/19/18 SEX: F Status: DEP REF SPEC: [id number] JOSEPHINE: 09/19/18-1401 [facility] DR: Emiliano Quintana MD REQ: [id number] RECD: 09/19/18-1817 STATUS: AUBREY COLEMAN DR: Nancie Roca [employer] _ ORDERED: LEVEL 4/2 FINAL DIAGNOSIS 1. Colon, rectum, biopsy: -- Tubular adenoma. -- No high grade dysplasia or malignancy. 2. Colon, descending, biopsy: -- Tubular adenoma. -- No high grade dysplasia or malignancy. CLINICAL HISTORY Screening/Surveillance for malignancy in asymptomatic patient; abdominal pain ; history of polyps POST-OPERATIVE DIAGNOSIS Colonoscopy: to ascending; poor prep; 85 - 90 percent views for small 3 mm polyp; 2 small polyps; conclusions: diverticulosis - left; polyps GROSS DESCRIPTION 1. The specimen is received in formalin labeled, Biopsy Rectal Polyp, and consists of a 0.3 x 0.3 x 0.2 cm campos irregular soft tissue fragment which is submitted entirely in one cassette. 2. The specimen is received in formalin labeled, Biopsy Descending Colon Polyp, and consists of two campos irregular to polypoid soft tissue fragments measuring 0.4 x 0.3 x 0.2 cm CONTINUED ON NEXT PAGE DEPARTMENT OF PATHOLOGY, [address] [place] [address] jL Bravo M.D. Director [facility] # [id number] RUN DATE: 09/23/18 [facility] LIVE PAGE 2 Patient: MARIE ZHOU I [id number] (Continued) GROSS DESCRIPTION (Continued) and 0.5 x 0.4 x 0.1 cm which are submitted entirely in one cassette. Signed by and Reported on: Sally Vale MD 09/23/18 1130 END OF REPORT DEPARTMENT OF PATHOLOGY, [address] [place] [address] Lj Bravo M.D. Director [facility] # [id number] 2 Troponin-I testing on Plasma Separator Tubes (PST) has a known false positive rate of 0.20-0.40%. All positive troponins reflex immediate secondary confirmatory testing. 3 Because ethnic data is not always [...] 15-29 5 Kidney failure <15 (or dialysis) 4 [facility] Severe Sepsis and Septic Shock Management Bundle Measure requires all lactic acids initially measuring >2.0 mmol/L be repeated. 5 Desirable: <150 Borderline High: 150-199 High: 200-499 Very High: >500 6 Desirable: <200 Borderline High: 200-239 High: >239 7 Low: <40 Desirable: 40-60 High: >60 8 Desirable: <100 Near Optimal: 100-129 Borderline High: 130-159 High: 160-189 Very High: >189 9 Because ethnic data is not always readily [...] 15-29 5 Kidney failure <15 (or dialysis) 10 Sap Basis: [id number] 11 Sap Basis: [id number] 12 Sap Basis: [id number] 13 Specimen Lipemic. Result may not be valid. 14 Because ethnic data is not always readily [...] (or dialysis) Procedures Date Code Description Status 09/19/2018 82585307 Colonoscopy Completed 09/09/2018 52500440 Mammogram Completed 06/26/2018 77831 Holter Monitor Review (24 hr)dr review & interp only Completed 06/24/2018 05816 ECG Monitor/Recording W/Visual Superimposition Scanning Completed 06/05/2018 44013 EKG Tracing & Interpretation Completed 05/27/2018 91434 Stress Test Completed 05/27/2018 29609 Myocardial Perfusion Imaging Tomographic (Spect) Completed Multiple Studies 04/27/2018 70035 ECHO Transthorasic Realtime 2D W Doppler & Color Flow Completed Hosp 10/14/2017 40789 Neuroplasty/Transposition, Ulnar Nerve AT Wrist Completed 10/14/2017 60687 Neuroplasty &/Or Transposition; Ulnar Nerve AT Elbow Completed 10/14/2017 87397 Neuroplasty &/Or Transposition; Ulnar Nerve AT Elbow Completed 05/23/2017 56016 Neuroplasty &/Or Transposition; Ulnar Nerve AT Elbow Completed 05/23/2017 13942 Neuroplasty &/Or Transposition; Ulnar Nerve AT Elbow Completed 05/23/2017 57563 Neuroplasty/Transposition, Ulnar Nerve AT Wrist Completed 03/08/2017 47965 Polysomnography Sleep Staging 4+ Parameters Completed 01/22/2017 76845 Diffusing Capacity Completed 01/22/2017 86193 Plethysmography Determination Lung Volumes & Per Airway Completed Resist 01/22/2017 83752 Pulmonary Function><Bronchodil Completed 05/06/2014 52386 Inject/Drain Joint/Bursa Major W/O US Completed 04/02/2013 84471 Nerve Conduction 09-10 Studies Completed 04/02/2013 42287 Needle Electromyography Complete, Five Or More Muscles Completed Studied 02/17/2013 43077914 Colonoscopy Completed 07/15/2012 37944 Color Flow Doppler/Interp & Reprt Completed 07/15/2012 18038 Pulse Wave/Continuous-Interp.RPT Completed 07/15/2012 51408 ECHO Transthorasic Realtime 2D W Doppler & Color Flow Completed Hosp 05/02/2012 56687 EKG, Interpretation Only Completed Encounters Type Date Location Provider Dx Diagnosis Office Visit 08/28/2018 [facility] Gastroenterology Emiliano Humphrey J44.1 Chronic obstructive 8:45a MD Mariano pulmonary disease w (acute) exacerbation Z86.010 Personal history of colonic polyps E11.9 Type 2 diabetes mellitus without complications Office Visit 08/22/2018 [facility] J44.1 Chronic 10:33a taylor Salgado NP obstructive Hospitalists pulmonary disease w (acute) exacerbation R65.10 Sirs of non-infectious origin w/o acute organ dysfunction I10 Essential (primary) hypertension E11.9 Type 2 diabetes mellitus without complications Office Visit 08/21/2018 [facility] R65.10 Sirs of 10:33a taylor Salgado MD non-infectious Hospitalists origin w/o acute organ dysfunction J44.1 Chronic obstructive pulmonary disease w (acute) exacerbation I10 Essential (primary) hypertension E11.9 Type 2 diabetes mellitus without complications Office Visit 07/31/2018 9:20a [facility] Internal Alexandro Abelino, I10 Essential ( primary) Medicine - [employer] hypertension [place] M25.511 Pain in right shoulder R22.31 Localized swelling, mass and lump, right upper limb M53.3 Sacrococcygeal disorders, not elsewhere classified Office Visit 07/15/2018 10:00a [facility] Nurse Visit I10 Essential (primary) Of [facility] IC hypertension Office Visit 07/08/2018 11:00a [facility] Tracie Lewis E11.9 Type 2 diabetes Of [facility] Gene, N.P. mellitus without complications I10 Essential (primary) hypertension E78.5 Hyperlipidemia, unspecified R55 Syncope and collapse Office Visit 07/01/2018 8:40a [facility] Internal Alexandro Abelino, E11.9 Type 2 diabetes Medicine - [employer] mellitus without [place] complications E11.9 Type 2 diabetes mellitus without complications I10 Essential (primary) hypertension I10 Essential (primary) hypertension J44.9 Chronic obstructive pulmonary disease, unspecified J44.9 Chronic obstructive pulmonary disease, unspecified E78.5 Hyperlipidemia, unspecified E78.5 Hyperlipidemia, unspecified E55.9 Vitamin D deficiency, unspecified Z12.11 Encounter for screening for malignant neoplasm of colon Z12.31 Encntr screen mammogram for malignant neoplasm of breast Z23 Encounter for immunization Office Visit 06/09/2018 10:00a [facility] Robert Ortega MD R55 [facility] Of [facility] collapse I10 Essential (primary) hypertension E78.5 Hyperlipidemia, unspecified J44.9 Chronic obstructive pulmonary disease, unspecified E11.9 Type 2 diabetes mellitus without complications Z12.11 Encounter for screening for malignant neoplasm of colon Office Visit 06/05/2018 1:40p [facility] Jessica Lewis I10 Essential Of [facility] Morgan Calderón (primary) hypertension J44.9 Chronic obstructive pulmonary disease, unspecified E78.5 Hyperlipidemia, unspecified R55 Syncope and collapse R94.31 Abnormal electrocardiogram [ECG] [EKG] Office Visit 05/09/2018 10:30a [facility] Robert Ortega MD R55 [facility] collapse J44.9 Chronic obstructive pulmonary disease, unspecified J45.909 Unspecified asthma, uncomplicated E78.5 Hyperlipidemia, unspecified I10 Essential (primary) hypertension Office Visit 04/28/2018 9:17a [facility] Azucena Armendariz, R55 [facility]oc,taylor Mora collapse Hospitalists E86.0 Dehydration J44.9 Chronic obstructive pulmonary disease, unspecified E78.5 Hyperlipidemia, unspecified I10 Essential (primary) hypertension Office Visit 04/26/2018 9:16a [facility] Brandie R55 S[facility]ope and Assoc,taylor Jung NP collapse Hospitalists I10 Essential (primary) hypertension Office Visit 04/09/2018 [facility] J45.909 Unspecified asthma , 9:00a Sleep Services Of MD Reinaldo uncomplicated [employer] J44.9 Chronic obstructive pulmonary disease, unspecified Office Visit 04/01/2018 Orthopedic Андрей G57.91 Unspecified 10:15a Services Of Phillip, M.D. mononeuropathy of C.M.A. right lower limb Office [...] Chronic [facility] [place] obstructive [employer] pulmonary disease w (acute) exacerbation J45.909 Unspecified asthma, uncomplicated Office Visit 09/04/2017 9:15a Orthopedic Андрей Hadley G56.21 Lesion of Services Of Ck GR ulnar nerve, right upper limb G56.22 Lesion of ulnar nerve, left upper limb Office Visit 08/19/2017 [facility] R55 [facility] and Assoc,pc D.O. collapse Hospitalists R79.89 Other specified abnormal findings of blood chemistry J45.20 Mild intermittent asthma, uncomplicated J11.1 Flu due to unidentified influenza virus w oth resp manifest Office Visit 08/18/2017 10:03a [facility] Swati Nolasco, R55 Syncope and Assoc,pc D.O. collapse Hospitalists R79.89 Other specified abnormal findings of blood chemistry J44.1 Chronic obstructive pulmonary disease w (acute) exacerbation J45.20 Mild intermittent asthma, uncomplicated Office Visit 08/06/2017 Orthopedic Андрей M54.32 Sciatica, left side 8:30a Services Of Morgan Fisher C.M.A. Office Visit 04/18/2017 Orthopedic Андрей G57.81 Other specified 9:30a Services Of Morgan Fisher mononeuropathies of C.M.A. right lower limb Office Visit 04/09/2017 [facility] [place] J45.909 Unspecified asthma , 2:30p Sleep Services MD Reinaldo uncomplicated Of [employer] Office Visit 02/15/2017 Orthopedic Андрей G57.81 Other [...] Sleep Services MD Reinaldo with (acute) Of [employer] exacerbation J30.9 Allergic rhinitis, unspecified K21.9 Gastro-esophageal [...] [place]over S63.631D Sprain of 11:20a Services Of Bitnickolas, interphalangeal joint C.M.A. RPA-C of left index [...] middle finger, init Office Visit 10/24/2015 2:49p [facility] J45.52 Severe persistent Assoc,taylor Mccormack M.D. asthma with Hospitalists status asthmaticus J10.1 Flu due to oth ident influenza virus w oth resp manifest I10 Essential (primary) hypertension E11.9 Type 2 diabetes mellitus without complications [facility]/23/2015 [facility] J45.52 Severe 2:38p Assoc,taylor TINAJERO M.D. persistent Hospitalists asthma with status asthmaticus J10.1 Flu due to oth ident influenza virus w oth resp manifest I10 Essential (primary) hypertension E11.9 Type 2 diabetes mellitus without complications Office Visit 11/03/2014 9:35a [facility] 518.81 Respiratory Assoc,taylor Mccormack M.D. Failure Acute Hospitalists 493.92 Asthma Unspec W/ Acute Exacerbation 490 Bronchitis Acute Or Chronic Not Spec 038.9 Septicemia Unspec Office Visit 11/02/2014 9:34a [facility] 518.81 Respiratory Assoctaylor M.D. Failure Acute Hospitalists 493.92 Asthma Unspec W/ Acute Exacerbation 490 Bronchitis Acute Or Chronic Not Spec 038.9 Septicemia Unspec Office Visit 11/01/2014 9:34a [facility] 518.81 Respiratory Assoctaylor M.D. Failure Acute Hospitalists 493.92 Asthma Unspec W/ Acute Exacerbation 490 Bronchitis Acute Or Chronic Not Spec 038.9 Septicemia Unspec Office Visit 10/31/2014 9:34a [facility] 518.81 Respiratory Assoc,taylor Armendariz M.D. Failure Acute Hospitalists 493.92 Asthma Unspec W/ Acute Exacerbation 490 Bronchitis Acute Or Chronic Not Spec 038.9 Septicemia Unspec Office Visit 08/18/2014 8:30a [facility] Sahara Nixon, 482.9 Pneumonia Due To Assoc,pc N.P. Bacterial Hospitalists Infection Unspec 038.9 Septicemia Unspec 401.9 Hypertension Unspec 272.4 Hyperlipidemia Other Unspec Office Visit 08/17/2014 8:30a [facility] [place] 482.9 Pneumonia Due Assoc,pc MARC Hill To Bacterial Hospitalists Infection Unspec 038.9 Septicemia Unspec 401.9 Hypertension Unspec 272.4 Hyperlipidemia Other Unspec Office Visit 08/16/2014 [facility] Emil Deleon 482.9 Pneumonia Due 8:29a Assoc,taylor TINAJERO M.D. To Bacterial Hospitalists Infection Unspec 038.9 Septicemia Unspec 401.9 Hypertension Unspec 272.4 Hyperlipidemia Other Unspec Office Visit 05/06/2014 8:45a [facility] Marcelo Gamboa, 726.10 Bursae & Tendon Of Ck Mora Disorders Shoulder Region Unspec Office Visit 08/19/2012 1:15p [facility] Андрей 995.91 Sepsis Assoc,taylor Lucero, N.[place]. Hospitalists 493.02 Extrinsic Asthma With Acute Exacerbation 481 Pneumonia Pneumococcal 250.00 Diabetes Mellitus W/O Compl Type II Or Unspec Controlled Office Visit 08/18/2012 1:14p [facility] Asscarina,taylor Lucero, 995.91 Sepsis Hospitalists N.P. 493.02 Extrinsic Asthma With Acute Exacerbation 481 Pneumonia Pneumococcal 250.00 Diabetes Mellitus W/O Compl Type II Or Unspec Controlled Office Visit 08/17/2012 1:14p [facility] Ass,taylor Mills, 995.91 Sepsis Hospitalists N.P. 493.02 Extrinsic Asthma With Acute Exacerbation 481 Pneumonia Pneumococcal 250.00 Diabetes Mellitus W/O Compl Type II Or Unspec Controlled Office Visit 08/16/2012 1:13p [facility] Asscarina,taylor Mills, 995.91 Sepsis Hospitalists N.P. 493.02 Extrinsic Asthma With Acute Exacerbation 481 Pneumonia Pneumococcal 250.00 Diabetes Mellitus W/O Compl Type II Or Unspec Controlled Office Visit 07/17/2012 6:48p [facility] Sunil 518.81 Respiratory Assoc,taylor Mccormack M.D. Failure Acute Hospitalists 493.02 Extrinsic Asthma With Acute Exacerbation 466.0 Bronchitis Acute 250.90 Diabetes W/ Unspec Compl Type II Or Unspec Controlled Office Visit 07/16/2012 6:48p [facility] Azucena 518.81 Respiratory Assoc,taylor Armendariz M.D. Failure Acute Hospitalists 493.02 Extrinsic Asthma With Acute Exacerbation 466.0 Bronchitis Acute Office Visit 07/15/2012 6:47p [facility] Azucena 518.81 Respiratory Assoc,taylor Armendariz M.D. Failure Acute Hospitalists 493.02 Extrinsic Asthma With Acute Exacerbation 466.0 Bronchitis Acute Office Visit 07/14/2012 [facility] Chelsea Chapman, 518.81 Respiratory 6:47p taylor Salgado M.D. Failure Acute Hospitalists 493.02 Extrinsic Asthma With Acute Exacerbation 466.0 Bronchitis Acute 250.90 Diabetes W/ Unspec Compl Type II Or Unspec Controlled Office [facility] 493.02 Extrinsic Asthma 7:27a taylor Salgado D.O. With Acute Hospitalists Exacerbation 995.91 Sepsis 401.9 Hypertension Unspec Office Visit 05/04/2012 [facility] Swati 493.02 Extrinsic Asthma 7:26a taylor Salgado D.O. With Acute Hospitalists Exacerbation 995.91 Sepsis 401.9 Hypertension Unspec Office Visit 05/03/2012 [facility] Luis Newell, 493.02 Extrinsic Asthma 7:26a taylor Salgado M.D. With Acute Hospitalists Exacerbation 995.91 Sepsis 401.9 Hypertension Unspec Office Visit 05/02/2012 [facility] Luis Newell, 493.02 Extrinsic Asthma 7:25a taylor Salgado M.D. With Acute Hospitalists Exacerbation 995.91 Sepsis 401.9 Hypertension Unspec Office Visit 03/02/2009 [facility] Donal 493.92 Asthma Unspec W/ 12:30a taylor Salgado M.D. Acute Hospitalists Exacerbation Office Visit 03/01/2009 [facility] Chelsea Chapman, 493.92 Asthma Unspec W/ 12:15a taylor Salgado M.D. Acute Hospitalists Exacerbation Plan of Treatment Future Appointment(s):09/29/2018 8:40 am - Alexandro Roca NP at [facility] - [id number]/13/2019 9:15 am - Temi Najera MD at [facility]09/01/2018 - Alexandro Roca NPJ45.909 Unspecified asthma, [id number] Chronic obstructive pulmonary disease with (acute) exacerbatNew Medication:Prednisone 10 mg - take 4 tab daily x 2 days then 3 tab daily x 2 days, then 2 tab daily for 2 day, and 1 tab for 2 day.Comments:Start the prednisone today.Continue using all other breathing medications.I will get the paperwork sent in for the albuterol for the nebulizer today. If your symptoms are not further improving or worsening please let me know.
--- OUTSIDE RECORDS SUMMARY | 2018-10-20 16:30 | XMS REPORT | Continuity of Care Document ---
:1960 External Reference #:[id number] Author Name Donal Sabina Care Team Providers Name Role Phone Nancie Egan MD Primary Care Physician Unavailable Payers Date Identification Numbers Payment Provider Subscriber Policy Number: [id number] Medicare Marie Zhou PayID: [id number] [address] [facility][1], [place] [address] Policy Number: [id number] Medicaid Marie Davenportt PayID: [id number] [address] [place] [address] Effective: 2011 Policy Number: [id number] Medicare Marie Zhou Expires: 2018 PayID: [id number] [address] [place] [address] Advance Directives Description No Information Available Problems Date Description Provider Status Onset: 01/15/2017 Asthma without status asthmaticus Temi Najera MD Active Onset: 01/15/2017 Allergic rhinitis Temi Najera MD Active Onset: 01/15/2017 Gastroesophageal reflux disease Temi Najrea MD Active Onset: 01/15/2017 Other sleep disorders [...] presumed cause; no discharge summary in the [facility] database Family History Date Family Member(s) Observation Comments General Cancer General Diabetes General Hypertension Father Unknown Mother Seizure Disorder Mother Cerebrovascular Accident (CVA) Mother Diabetes Social History Type Date Description Comments Sex Unknown Marital Status Lives With granddaughter Occupation Disabled Tobacco Use Start: Unknown Never Smoked Cigarettes Smoking Status Reviewed: 09/29/18 Never Smoked Cigarettes ETOH Use Denies alcohol [...] Form Strength Qnty SIG Indications Ordering Provider Montelukast 09/29 Active Tablets 10mg 30tab 1 by mouth Alexandro Sodium /2018 s every day Abelino, MUNICIPAL ENGINEER Ibuprofen 09/29 Active Tablets 800mg 30tab 1 by mouth Alexandro /2018 s three times Abelino, MUNICIPAL ENGINEER a day as needed with food Doxycycline 09/29 Active Capsules 100mg 20cap one tablet J01.90 Alexandro Hyclate /2018 s twice daily Abelino, MUNICIPAL ENGINEER for 10 days. Prednisone 09/29 Active Tablets 10mg 20tab take 4 tab J44.1 Alexandro /2018 s daily x 2 Abelino, MUNICIPAL ENGINEER days then 3 tab daily x 2 days, then 2 tab daily for 2 day, and 1 tab for 2 day. Glucose Meter 09/01 Active Strips 90uni for use 1-3 Alexandro Test Strips /2018 ts times daily Abelino, MUNICIPAL ENGINEER Advanced Magnesium 08/29 Active Solution 1.745GM/3 592ml drink the Emiliano Gregg 0ML entire natalia Quintana MD after dinner [...] Solution 0.5-2.5(3 90ml 1 vial in Alexandro Driscoll/Albutero /0000 )mg/3ML nebulizer MARC Roca l Sulfate three times a day as needed for asthma Ventolin HFA Active Aerosol 108(90Bas 1unit 2 puffs by Unknown /0000 e) s mouth four mcg/Act times a day as needed Ranitidine 150 Active Tablets 150mg one by Unknown Maximum Strength /0000 mouth once a day Pantoprazole Active Tablets DR 40mg take 1 Unknown Sodium /0000 tablet by mouth once daily Fenofibrate Active Tablets 160mg 1 by mouth Unknown /0000 every day Isosorbide Active Tablets ER 60mg 1 by mouth Unknown Mononitrate ER /0000 24HR every day Bevespi Active Aerosol 9-4.8mcg/ 2 puffs Unknown Aerosphere Act inhalation twice daily. Prednisone 09/01 Hx Tablets 10mg 20tab take 4 tab J44.1 Alexandro /2018 s daily x 2 MARC Roca - days then 3 09/12 tab daily x 2 days, then 2 tab daily for 2 day, and 1 tab for 2 day. Suprep Bowel 08/29 Hx Solution 17.5-3.13 354un Take Emiliano Spence Kit -1.6GM/17 its according Mariano, - 7ML to your MD 09/25 physician's instruction s the day before the procedure. Split the dose as directed. Dexamethasone 08/21 Hx Tablets 2mg 3 tablets daily for 5 - days. 08/28 Lisinopril 07/01 Hx Tablets 5mg 30tab 1 by mouth I10 s every day MARC Roca - 07/31 Tramadol HCL 10/14 Hx Tablets 50mg 30tab 1-2 tablets s by mouth MD Leonie - every 6 04/09 hours as needed pain Bevespi 10/07 Hx Aerosol 9-4.8mcg/ 17.7g 2 puffs J44.1 Tracie S. Aeros Act m inhalation Foster, - twice N.P. [...] mouth at 02/06 bedtime /2016 Advair Diskus 00/ Hx Unknown /0000 - 01/14 Butrans 00 Hx Patches 10mcg/HR 4unit topical Unknown /0000 Weekly s q7days - 01/17 Calcium 500+D 00/ Hx daily Unknown /0000 - 06/04 Celebrex [...] dose by - mouth twice 04/09 /2017 Furosemide Hx Tablets 20mg take 1 Unknown /0000 tablet by - mouth every 05/07 morning needed for edema Escitalopram Hx Tablets 10mg take 1 Unknown Oxalate /0000 tablet by - mouth once 05/07 /2017 Vitamin D3 Hx Capsules [id number] Unknown /0000 - 07/07 Cyclobenzaprine Hx Unknown HCL /0000 - 05/07 Doxycycline Hx Tablets 100mg 1 by mouth Unknown Hyclate /0000 twice a day - X 10 days 08/27 Guaifenesin Hx Tablets 200mg take 3 tabs Unknown /0000 twice a day - for 20 days 09/25 Calcium Hx Tablets 500-125mg 1 by mouth Unknown 500/Vitamin D /0000 -Unit daily - 09/25 Medications Administered in Office Medication Date Status Form Strength Qnty SIG Indications Ordering Provider Inj, Administered Injection Jason Lewis Regadenoson, 018 DO Reece 0.1 MG FACC Technetium TC Administered Injection Jason S. 99M 018 DO Reece Tetrofosmin, FACC Per Unit Dose Up To 40 Millicuries Depomedrol Administered Injection Marcelo 80MG 014 Ford GamboaD. Immunizations CPT Code Status Date Vaccine Lot # [id number] Given 07/01/2018 Influenza Virus Vaccine, Quadrivalent, Split, [id number] Preservative Free [id number] Given 05/07/2016 Influenza Virus 3Yrs & Over Vital Signs Date Vital Result Comment 09/29/2018 8:48am Height 61 inches 5'1" Heart Rate 98 /min BP Systolic 125 mmHg BP Diastolic 75 mmHg Body Temperature 98.9 F O2 % BldC Oximetry 94 % 09/26/2018 8:15am Height 61 inches 5'1" Weight 159.75 lb with braces and shoes Heart Rate 78 /min BP Systolic Sitting 118 mmHg lue reg cuff BP Diastolic Sitting 70 mmHg lue reg cuff BP Systolic Standing 124 mmHg lue reg cuff BP Diastolic Standing 70 mmHg lue reg cuff Respiratory Rate 16 /min BMI (Body Mass Index) 30.2 kg/m2 Ejection Fraction 50-55% 09/01/2018 10:45am Height 61 inches 5'1" Weight [...] Result H/L Range Note Laboratory test 09/19/2018 [facility] Surgical SEE RESULT [address] [place] [address] [phone] CBC Auto Diff 08/21/2018 [facility] White Blood 7.5 10^3/uL N 3.5-10.[address] [place] [address] [phone] Red Blood Count 5.30 10^6/uL N 4.00-5.40 [...] Blood Cells % 0 Urinalysis Profile 08/21/2018 [facility] Urine Color Straw [address] [place] [address] [phone] Urine Appearance Clear Urine Specific [place] 1.005 Low 1.010-1.030 Urine pH 5.0 N 5-9 Urine Urobilinogen Negative Negative Urine Ketones Negative Negative Urine Protein Negative Negative Urine Leukocytes Negative Negative Urine Blood Negative Negative Urine Nitrite Negative Negative Urine Bilirubin Negative Negative Urine Glucose 1+(50 mg/dL) Abnormal Negative CKMB 08/21/2018 [facility] CKMB ng/mL 0.9 ng/mL N 0.6-6.[address] [place] [address] [phone] Laboratory test 08/21/2018 [facility] Creatine 66 U/L N 10- [address] Kinase(CK) [place] [address] [phone] C Reactive Protein 4.43 mg/L N <8.01 Troponin-I (TnI) 0.00 ng/mL <0.04 2 Comp Metabolic Panel 08/21/2018 [facility] Sodium 141 mmol/L N 135-[address] [place] [address] [phone] Potassium 3.9 mmol/L N 3.5-5.0 Chloride 109 [...] Egfr 57.1 >60 3 Laboratory test 08/21/2018 [facility] Partial 34.0 seconds N 26.0-36.[address] [place] [address] PTT [phone] Lactic Acid 1.6 mmol/L N 0.5-2.0 4 B-Type Natriuretic Peptide BNP 32 pg/mL <=100 Inr/Protime 08/21/2018 [facility] Inr 0.82 N 0.77-1.[address] [place] [address] [phone] Lipid Profile 07/01/2018 [facility] Triglycerides 178 mg/dL 5 (Trig/Chol/HDL) [address] [place] [address] [phone] Cholesterol 193 mg/dL 6 HDL Cholesterol 42.6 mg/dL 7 LDL Cholesterol 115 mg/dL 8 Comp Metabolic Panel 07/01/2018 [facility] Sodium 144 mmol/L N 135-[address] [place] [address] [phone] Potassium 4.5 mmol/L N 3.5-5.0 Chloride 107 [...] Egfr 75.2 >60 9 Urine Microalbumin 07/01/2018 [facility] Ur Microalbumin 20.[address] (mg/L) [place] [address] [phone] Urine Creatinine 65.42 mg/dL Urine Microalbumin/Creatinine 31.0 N <31 Laboratory test 07/01/2018 [facility] Vitamin D Total 30.3 N 20-[address] 25(Oh) ng/[place] [address] [phone] Laboratory test 07/01/2018 [facility] Hemoglobin A1c 6.1 5-7 finding Laboratory test 10/14/2017 [facility] Point of Care 118 mg/dL High 70-100 [address] [place] [address] [phone] Laboratory test 05/23/2017 [facility] Point of Care 111 mg/dL High 70-100 [address] [place] [address] [phone] Laboratory test 05/23/2017 [facility] Point of Care 109 mg/dL High 70-100 [address] [place] [address] [phone] Comp Metabolic 03/17/2014 [facility] Sodium 139 N 133-[address] mmol/[place] [address] [phone] Potassium 3.8 mmol/L N 3.7-5.6 Chloride 106 [...] N >60 14 CBC Auto Diff 03/17/2014 [facility] White Blood 8.2 10^3/uL N 4.8-10.[address] [place] [address] [phone] Red Blood Count 5.12 10^6/uL N 4.0-5.4 [...] 0.1 N 1 SEE RESULT BELOW Name: MARIE ZHOU I : [address]: Emiliano Quintana MD Acct: [id number] Unit: [id number] AGE: 58 Location: ENDO Re09/19/18 SEX: F Status: DEP REF SPEC: [id number] JOSEPHINE: 09/19/18-[address] [facility] DR: Emiliano Quintana MD REQ: [id number] RECD: 09/19/18 STATUS: AUBREY COLEMAN DR: Nancie Roca MUNICIPAL ENGINEER _ ORDERED: LEVEL 4/2 FINAL DIAGNOSIS 1. [...] CONTINUED ON NEXT PAGE DEPARTMENT OF PATHOLOGY, [address] [place] [address] jL Bravo M.D. Director [facility] # [id number] RUN DATE: 09/23/18 [facility] LAB LIVE PAGE 2 Patient: MARIE ZHOU I [id number] (Continued) GROSS DESCRIPTION (Continued) and 0.5 x 0.4 x 0.1 cm which are submitted entirely in one cassette. Signed by and Reported on: Sally Vale MD 09/23/18 1130 END OF REPORT DEPARTMENT OF PATHOLOGY, [address] [place] [address] Lj Bravo M.D. Director [facility] # [id number] 2 Troponin-I testing on Plasma Separator Tubes [...] 5 Kidney failure <15 (or dialysis) 4 [facility] Severe Sepsis and Septic Shock Management [...] 5 Kidney failure <15 (or dialysis) 10 [employer]acker: [id number] 11 Lumber Hacker: [id number] 12 Lumber Hacker: [id number] 13 Specimen Lipemic. Result may not be [...] dialysis) Procedures Date Code Description Status 09/19/2018 [id number] Colonoscopy Completed 09/09/2018 19540117 Mammogram Completed 06/26/2018 73732 Holter Monitor Review (24 hr)dr meade & interp only Completed 06/24/2018 69758 ECG Monitor/Recording W/Visual Superimposition Scanning Completed 06/05/2018 64260 EKG Tracing & Interpretation Completed 05/27/2018 25109 Stress Test Completed 05/27/2018 46790 Myocardial Perfusion Imaging Tomographic (Spect) Completed Multiple Studies 04/27/2018 06691 ECHO Transthorasic Realtime 2D W Doppler & Color Flow Completed Hosp 10/14/2017 32697 Neuroplasty/Transposition, Ulnar Nerve AT Wrist Completed 10/14/2017 43491 Neuroplasty &/Or Transposition; Ulnar Nerve AT Elbow Completed 10/14/2017 54444 Neuroplasty &/Or Transposition; Ulnar Nerve AT Elbow Completed 05/23/2017 65905 Neuroplasty &/Or Transposition; Ulnar Nerve AT Elbow Completed 05/23/2017 98203 Neuroplasty &/Or Transposition; Ulnar Nerve AT Elbow Completed 05/23/2017 84110 Neuroplasty/Transposition, Ulnar Nerve AT Wrist Completed 03/08/2017 51284 Polysomnography Sleep Staging 4+ Parameters Completed 01/22/2017 04004 Diffusing Capacity Completed 01/22/2017 19368 Plethysmography Determination Lung Volumes & Per Airway Completed Resist 01/22/2017 42627 Pulmonary Function><Bronchodil Completed 05/06/2014 91640 Inject/Drain Joint/Bursa Major W/O US Completed 04/02/2013 83188 Nerve Conduction 09-10 Studies Completed 04/02/2013 50579 Needle Electromyography Complete, Five Or More Muscles Completed Studied 02/17/2013 78116434 Colonoscopy Completed 07/15/2012 69413 Color Flow Doppler/Interp & Reprt Completed 07/15/2012 07820 Pulse Wave/Continuous-Interp.RPT Completed 07/15/2012 25045 ECHO Transthorasic Realtime 2D W Doppler & Color Flow Completed Hosp 05/02/2012 83788 EKG, Interpretation Only Completed Encounters Type Date Location Provider Dx Diagnosis Office Visit 08/28/2018 [facility] Gastroenterology Emiliano Keyes44.1 Chronic obstructive 8:45a MD Mariano pulmonary disease w (acute) exacerbation Z86.010 Personal history of colonic polyps E11.9 Type 2 diabetes mellitus without complications Office Visit 08/22/2018 [facility] J44.1 Chronic 10:33a Assoc,pc [place], MUNICIPAL ENGINEER obstructive Hospitalists pulmonary disease w (acute) exacerbation R65.10 Sirs of non-infectious origin w/o acute organ dysfunction I10 Essential (primary) hypertension E11.9 Type 2 diabetes mellitus without complications [facility] R[facility].10 Sirs of 10:33a ,taylor Jain MD non-infectious Hospitalists origin w/o acute organ dysfunction J44.1 Chronic obstructive pulmonary disease w (acute) exacerbation I10 Essential (primary) hypertension E11.9 Type 2 diabetes mellitus without complications Office Visit 07/31/2018 9:20a [facility] Internal Alexandro Abelino, I10 Essential ( primary) Medicine - MUNICIPAL ENGINEER hypertension [place] M25.511 Pain in right shoulder R22.31 Localized swelling, mass and lump, right upper limb M53.3 Sacrococcygeal disorders, not elsewhere classified Office Visit 07/15/2018 10:00a [facility] Nurse Visit I10 Essential (primary) Of [facility] IC hypertension Office Visit 07/08/2018 11:00a [facility] Tracie S. E11.9 Type 2 diabetes Of [facility] Foster, N.P. mellitus without complications I10 Essential (primary) hypertension E78.5 Hyperlipidemia, unspecified R55 Syncope and collapse Office Visit 07/01/2018 8:40a [facility] Internal Alexandro Abelino, E11.9 Type 2 diabetes Medicine - MUNICIPAL ENGINEER mellitus without [place] complications E11.9 Type 2 diabetes mellitus without [...] Ortega MD R55 Syncope and Clinic Of [facility] collapse I10 Essential (primary) hypertension E78.5 Hyperlipidemia, unspecified J44.9 Chronic obstructive pulmonary disease, unspecified E11.9 Type 2 diabetes mellitus without complications Z12.11 Encounter for screening for malignant neoplasm of colon Office Visit 06/05/2018 1:40p [facility] Qutaybpamela S. I10 Essential Of [facility] Morgan Calderón (primary) hypertension J44.9 Chronic obstructive pulmonary disease, unspecified E78.5 Hyperlipidemia, unspecified R55 Syncope and collapse R94.31 Abnormal electrocardiogram [ECG] [EKG] Office Visit 05/09/2018 10:30a [facility] Robert Ortega MD R55 Syncope and Clinic Of [facility] collapse J44.9 Chronic obstructive pulmonary disease, unspecified J45.909 Unspecified asthma, uncomplicated E78.5 Hyperlipidemia, unspecified I10 Essential (primary) hypertension Office Visit 04/28/2018 9:17a [facility] Azucena Coteima, R55 Syncope and Assoc,taylor Mora collapse Hospitalists E86.0 Dehydration J44.9 Chronic obstructive pulmonary disease, unspecified E78.5 Hyperlipidemia, unspecified I10 Essential (primary) hypertension Office Visit 04/26/2018 9:16a [facility] Brandie R55 Syncope and Assoc,taylor Jung NP collapse Hospitalists I10 Essential (primary) hypertension Office Visit 04/09/2018 [facility] And Temi J45.909 Unspecified asthma , 9:00a Sleep Services Of MD Reinaldo uncomplicated [facility] J44.9 Chronic obstructive pulmonary disease, unspecified Office [...] Office Visit 10/07/2017 2:30p Pulmonology And Tracie Keyes44.1 Chronic Sleep Services Of Foster, N.P. obstructive [place] pulmonary disease w (acute) exacerbation J45.909 Unspecified asthma, uncomplicated Office Visit 09/04/2017 9:15a Orthopedic Андрей Hadley G56.21 Lesion of Services Of Ck GR ulnar nerve, right upper limb G56.22 Lesion of ulnar nerve, left upper limb Office Visit 08/19/2017 10:04a [facility] Swati Gaurav, R55 Syncope and Assoc,pc D.O. collapse Hospitalists R79.89 Other specified abnormal findings of blood chemistry J45.20 Mild intermittent asthma, uncomplicated J11.1 Flu due to unidentified influenza virus w oth resp manifest Office Visit 08/18/2017 10:03a [facility] Swati Gaurav, R55 Syncope and Assoc,pc D.O. collapse Hospitalists [...] 2:30p Sleep Services MD Reinaldo uncomplicated Of [place] Office Visit 02/15/2017 Haile Chiang G57.81 Other specified 2:15p Services Of Morgan Fisher mononeuropathies of C.M.A. right lower limb Office Visit 02/01/2017 Haile Chiang G56.21 Lesion of ulnar 1:30p Services Of MD Leonie nerve, right upper C.M.A. limb Office Visit 01/18/2017 Haile Chiang G56.21 Lesion of ulnar 8:00a Services Of MD Leonie nerve, right upper C.M.A. limb Office Visit 01/15/2017 Pulmonology And Temi J45.901 Unspecified asthma 10:15a Sleep Services MD Reinaldo with (acute) Of [place] exacerbation J30.9 Allergic rhinitis, unspecified K21.9 Gastro-esophageal [...] middle finger, init Office Visit 10/24/2015 2:49p [facility] J45.52 Severe persistent Assoc,taylor Mccormack M.D. asthma with Hospitalists status asthmaticus J10.1 Flu due to oth ident influenza virus w oth resp manifest I10 Essential (primary) hypertension E11.9 Type 2 diabetes mellitus without complications Office Visit 10/23/2015 [facility] Pancho J45.52 Severe 2:38p Assoc,taylor TINAJERO M.D. persistent Hospitalists asthma with status asthmaticus J10.1 Flu due to oth ident influenza virus w oth resp manifest I10 Essential (primary) hypertension E11.9 Type 2 diabetes mellitus without complications Office Visit 11/03/2014 9:35a [facility] 518.81 Respiratory Assoc,taylor Mccormack M.D. Failure Acute Hospitalists 493.92 Asthma Unspec W/ Acute Exacerbation 490 Bronchitis Acute Or Chronic Not Spec 038.9 Septicemia Unspec Office Visit 11/02/2014 9:34a [facility] 518.81 Respiratory Assoc,taylor Mccormack M.D. Failure Acute Hospitalists 493.92 Asthma Unspec W/ Acute Exacerbation 490 Bronchitis Acute Or Chronic Not Spec 038.9 Septicemia Unspec Office Visit 11/01/2014 9:34a [facility] 518.81 Respiratory Assoc,taylor Mccormack M.D. Failure Acute Hospitalists 493.92 Asthma Unspec W/ Acute Exacerbation 490 Bronchitis Acute Or Chronic Not Spec 038.9 Septicemia Unspec Office Visit 10/31/2014 [facility] 518.[facility] Assoc,taylor Armendariz M.D. Failure Acute Hospitalists 493.92 Asthma Unspec W/ Acute Exacerbation 490 Bronchitis Acute Or Chronic Not Spec 038.9 Septicemia Unspec Office Visit 08/18/2014 8:30a [facility] Sahara Nixon, 482.9 Pneumonia Due To Assoc,pc N.PCristian Bacterial Hospitalists Infection Unspec 038.9 Septicemia Unspec 401.9 Hypertension Unspec 272.4 Hyperlipidemia Other Unspec Office Visit 08/17/2014 8:30a [facility] Payton 482.9 Pneumonia Due Assoc,taylor Hill NP To Bacterial Hospitalists Infection Unspec 038.9 Septicemia Unspec 401.9 Hypertension Unspec 272.4 Hyperlipidemia Other Unspec Office Visit 08/16/2014 [facility] Emil Deleon 482.9 Pneumonia Due 8:29a Assoc,taylor TINAJERO M.D. To Bacterial Hospitalists Infection Unspec 038.9 Septicemia Unspec 401.9 Hypertension Unspec 272.4 Hyperlipidemia Other Unspec Office Visit 05/06/2014 8:45a Orthopedic Services Marcelo Gamboa, 726.10 Bursae & Tendon Of Ck Mora Disorders Shoulder Region Unspec Office Visit 08/19/2012 1:15p [facility] Андрей 995.91 Sepsis Assoc,taylor Lucero NPratik Hospitalists 493.02 Extrinsic Asthma With Acute Exacerbation 481 Pneumonia Pneumococcal 250.00 Diabetes Mellitus W/O Compl Type II Or Unspec Controlled Office Visit 08/18/2012 1:14p [facility] taylor Salgado, 995.91 Sepsis Hospitalists N.P. 493.02 Extrinsic Asthma With Acute Exacerbation 481 Pneumonia Pneumococcal 250.00 Diabetes Mellitus W/O Compl Type II Or Unspec Controlled Office Visit 08/17/2012 1:14p [facility] Assoc,taylor Mills, 995.91 Sepsis Hospitalists N.P. 493.02 Extrinsic Asthma With Acute Exacerbation 481 Pneumonia Pneumococcal 250.00 Diabetes Mellitus W/O Compl Type II Or Unspec Controlled Office Visit 08/16/2012 1:13p [facility] Assoc,taylor Mills, 995.91 Sepsis Hospitalists N.P. 493.02 Extrinsic Asthma With Acute Exacerbation 481 Pneumonia Pneumococcal 250.00 Diabetes Mellitus W/O Compl Type II Or Unspec Controlled Office Visit 07/17/2012 6:48p [facility] Sunil 518.81 Respiratory Assoc,taylor Mccormack M.D. Failure Acute Hospitalists 493.02 Extrinsic Asthma With Acute Exacerbation 466.0 Bronchitis Acute 250.90 Diabetes W/ Unspec Compl Type II Or Unspec Controlled Office Visit 07/16/2012 6:48p [facility] Azucena 518.81 Respiratory Assoc,taylor Armendariz M.D. Failure Acute Hospitalists 493.02 Extrinsic Asthma With Acute Exacerbation 466.0 Bronchitis Acute Office Visit 07/15/2012 6:47p [facility] 518.[facility] Assoc,taylor Armendariz M.D. Failure Acute Hospitalists 493.02 Extrinsic Asthma With Acute Exacerbation 466.0 Bronchitis Acute Office Visit 07/14/2012 [facility] Chelsea Chapman, 518.81 Respiratory 6:47p taylor Salgado M.D. Failure Acute Hospitalists 493.02 Extrinsic Asthma With Acute Exacerbation 466.0 Bronchitis Acute 250.90 Diabetes W/ Unspec Compl Type II Or Unspec Controlled Office Visit 05/05/2012 [facility] Swati 493.02 Extrinsic Asthma 7:27a Assoc,taylor Nolasco D.O. With Acute Hospitalists Exacerbation 995.91 Sepsis 401.9 Hypertension Unspec Office Visit 05/04/2012 [facility] Swati 493.02 Extrinsic Asthma 7:26a Assoc,taylor Nolasco DIrvin With Acute Hospitalists Exacerbation 995.91 Sepsis 401.9 Hypertension Unspec Office Visit 05/03/2012 [facility] Luis Newell, 493.02 Extrinsic Asthma 7:26a taylor Salgado M.D. With Acute Hospitalists Exacerbation 995.91 Sepsis 401.9 Hypertension Unspec Office Visit 05/02/2012 [facility] Luis Newell, 493.02 Extrinsic Asthma 7:25a taylor Salgado M.D. With Acute Hospitalists Exacerbation 995.91 Sepsis 401.9 Hypertension Unspec Office Visit 03/02/2009 [facility] 493.92 Asthma Unspec W/ 12:30a taylor Salgado M.D. Acute Hospitalists Exacerbation Office Visit 03/01/2009 [facility] Chelsea Chapman, 493.92 Asthma Unspec W/ 12:15a taylor Salgado M.D. Acute Hospitalists Exacerbation Plan of Treatment Future Appointment(s):01/05/2019 9:00 am - Alexandro Roca NP at [facility] Internal Medicine [facility]10/08/2018 9:15 am - Temi Najera MD at Pulmonology And Sleep Services Of [facility]09/29/2018 - Alexandro Roca NPI10 Essential (primary) hypertensionComments:~B_HYPERTENSION:~b_Well controlled on current regimen. Continue present management.Follow up:3 month DM f/uJ01.90 Acute sinusitis, unspecifiedNew Medication:Doxycycline Hyclate 100 mg - one tablet twice daily for 10 days.Comments:Complete the entire course of antibiotics, even if feeling better.J44.1 Chronic obstructive pulmonary disease with (acute) exacerbatNew Medication:Prednisone 10 mg - take 4 tab daily x 2 days then 3 tab daily x 2 days, then 2 tab daily for 2 day, and 1 tab for 2 day.
[2018-10-20 16:53] LABS: Hematocrit 44 % (33-41); Hemoglobin 14.5 g/dL (12.0-16.0); Mean Corpuscular HGB Conc 33 g/dL (31-36); Mean Corpuscular Hemoglobin 30 pg (27-31); Mean Corpuscular Volume 91 fL (80-97); Mean Platelet Volume 10.8 fL (7.4-10.4); Platelet Count 244 10^3/uL (150-450); Red Cell Distribution Width 15 % (10.5-15); White Blood Count 27.7 10^3/uL (3.5-10.8)
[2018-10-20] MEDS ORDERED: Ondansetron INJ* 2 MG/ML VIAL ONE (16:54)
[2018-10-20 17:08] LABS: Albumin 4.4 g/dL (3.2-5.2); Albumin/Globulin Ratio 1.9 (1-3); Calcium 9.2 mg/dL (8.6-10.3); EGFR African American 47.7 (>60); EGFR Non-African American 39.4 (>60); Globulin 2.3 g/dL (2-4); Phosphorus 3.7 mg/dL (2.5-5.0); Potassium 3.9 mmol/L (3.5-5.0); Total Bilirubin 0.8 mg/dL (0.2-1.0); Total Protein 6.7 g/dL (6.4-8.9)
[2018-10-20 17:11] LABS: C Reactive Protein 4.44 mg/L (<8.01)
[2018-10-20] MEDS ORDERED: Ondansetron INJ* 2 MG/ML VIAL IV ONE (17:22)
[2018-10-20] MEDS ORDERED: Iodixanol* (CONTRAST) 320 MG/ML 100 ML SDV IV ONE (17:36)
[2018-10-20 17:43] LABS: Immature Granulocytes 4 % (0-9); Lymphocytes % 11 %; Monocytes % 8 %; Neutrophil % 75 %
[2018-10-20 17:46] LABS: ABS Neutrophils 21.9 10^3/ul (1.5-7.7)
[2018-10-20 17:47] LABS: ABS Eosinophils 0.5 10^3/ul (0-0.6)
[2018-10-20] MEDS ORDERED: Morphine INJ* 10 MG/ML 1 ML CARPUJECT IV ONE (18:32)
[2018-10-20] MEDS ORDERED: Morphine 10 MG/ML VIAL (1 ml) IV ONE (19:10)
[2018-10-20] MEDS ORDERED: Morphine 10 MG/ML VIAL (1 ml) IV PRN (20:25)
[2018-10-20] MEDS ORDERED: Dextrose 50% Syringe 50 ML* 25 GM/50 ML SYRINGE IV PUSH PRN (21:30)
[2018-10-20 21:36] LABS: Urine Appearance Clear; Urine Bacteria Absent (Absent); Urine Bilirubin Negative (Negative); Urine Blood Negative (Negative); Urine Color Yellow; Urine Glucose Negative (Negative); Urine Ketones Negative (Negative); Urine Nitrite Negative (Negative); Urine Protein Negative (Negative); Urine Red Blood Cell Absent (Absent); Urine Specific Gravity > 1.060 (1.010-1.030); Urine Squamous Epithelial Cell Present (Absent); Urine Urobilinogen Negative (Negative); Urine White Blood Cell 1+(6-10/hpf) (Absent)
--- NOTE | 2018-10-20 22:18 | ADMNOTE ---
Subjective Date of Service: 10/20/18 Interval History: HISTORY AND PHYSICAL PCP: Rc CC: abdominal pain HPI: Patient is 58 year old woman with history of pancreatitis who developed severe abdominal pain the afternoon of admission. This was accompanied by recurrent vomiting, no diarrhea. Pain in abdomen radiated to back. There was no fever, no dysuria, no hematemesis. Patient rates pain at 10/10. No unusual foods or new medications are noted. Pain not relieved by movement, not worsened by eating, but patient has no appetite. Family History: Findings - Mother of stroke age 79, Father unknown Social History: Findings - disabled, , 4 children, no alcohol, no tobacco , no drug use Past Medical History: Findings - PMH: asthma/COPD, degen disc disease, Type 2 diabetes, GERD, hyperlipidemia, hypertension; PSH LT ear surgery, L ulnar nerve release, tubal ligation Review of Systems - Measurements Intake and Output: Intake and Output Last 24 Hours 10/18/18 10/19/18 10/20/18 10/21/18 06:59 06:59 06:59 06:59 Weight 79.379 kg - Review of Systems Constitutional Symptoms: Negative: Weight Loss, Fever Dermatology: Positive: Normal HEENT: Positive: Normal Eyes: Positive: Normal Thyroid: Positive: Normal Pulmonary: Positive: Normal Cardiology: Positive: Normal Gastroenterology: Positive: Abdominal Pain, Nausea, Vomiting, Anorexia Negative: Difficulty Swallowing, Constipation, Diarrhea, Change in Bowel Habits Genital - Urinary: Positive: Normal Genitourinay - Female: Positive: Menopause Musculoskeletal: Positive: Joint Stiffness Endocrinology: Positive: Diabetes Mellitus Hematologic/Lymphatic: Negative: Anemia Neurology: Positive: Normal Psychiatry: Positive: Normal Objective Active Medications: Home Medications: Lovastatin (NF) [Mevacor (NF)] 20 mg PO QAM 08/16/12 Montelukast Sodium TAB* [Singulair 10 MG TAB*] 10 mg PO QAM 03/24/13 Fenofibrate Nanocrystallized [Triglide] 160 mg PO QAM 08/11/16 Ibuprofen TAB* [Motrin TAB* 800 MG] 800 mg PO TID PRN 11/16/16 Ranitidine TAB (NF) [Zantac TAB (NF)] 150 mg PO BID 02/04/17 Budesonide Flexhaler 90 (NF) [Pulmicort Flexhaler 90 mcg/act (NF)] 1 puff INH BID 04/26/18 Pantoprazole TAB * [Protonix TAB*] 40 mg PO DAILY 04/26/18 EPINEPHrine [Epipen 2-Gulshan] 1 inj SUBCUT ONCE PRN #0 04/28/18 Isosorbide Mononitrate ER TAB* [Imdur ER TAB*] 60 mg PO DAILY 07/02/18 Glycopyrrolate/Formoterol Fum [Bevespi Aerosphere Inhaler] INH DAILY 08/21/18 Lisinopril 10 mg PO DAILY 08/21/18 Diltiazem CD CAP* [Cardizem CD CAP*] 240 mg PO DAILY 09/15/18 Vital Signs - 8 hr 10/20/18 10/20/18 10/20/18 20:00 21:12 21:24 Temperature 36.6 C Pulse Rate 55 65 Respiratory 16 17 Rate Blood Pressure 143/73 (mmHg) O2 Sat by Pulse 96 96 Oximetry Oxygen Devices in Use Now: None Appearance: alert, mild distress Eyes: No Scleral Icterus Ears/Nose/Mouth/Throat: Clear Oropharnyx Neck: NL Appearance and Movements; NL JVP Respiratory: Symmetrical Chest Expansion and Respiratory Effort Cardiovascular: NL Sounds; No Murmurs; No JVD Abdominal: No Hepatosplenomegaly, - - tender epigastric, +BS, no masses Lymphatic: No Cervical Adenopathy Extremities: No Edema Skin: No Rash or Ulcers Neurological: Alert and Oriented x 3 Lines/Tubes/Other Access: Clean, Dry and Intact Peripheral IV Result Diagrams: 10/20/18 16:30 10/20/18 16:30 Additional Lab and Data: Laboratory Tests 10/20/18 10/20/18 10/20/18 16:30 16:30 16:30 Glucose 232 H Lactic Acid 1.5 Calcium 9.2 Magnesium 2.0 AST 23 ALT 23 Troponin I 0.00 C-Reactive Protein 4.44 Amylase 2282 H Lipase 7470 H Ur Specific [place] Urine Nitrate Ur Leukocyte Esterase Urine WBC (Auto) 10/20/18 20:05 Glucose Lactic Acid Calcium Magnesium AST ALT Troponin I C-Reactive Protein Amylase Lipase Ur Specific [place] > 1.060 H Urine Nitrate Negative Ur Leukocyte Esterase 2+ A Urine WBC (Auto) 1+(6-10/hpf) A Diagnostic Imaging: CT abdp/pelvis: acute pancreatitis. EKG Data: NSR, normal axis, borderline IVCD Assess/Plan/Problems-Billing Assessment: 58 year old with acute pancreatitis, recurrent - Patient Problems (1) Acute pancreatitis Current Visit: Yes Status: Acute Priority: High Code(s): K85.90 - ACUTE PANCREATITIS WITHOUT NECROSIS OR INFECTION, UNSP SNOMED Code(s): 720571851 Comment: -Patient will require admission, bowel rest, aggressive rehydration , pain control, antiemetics. -Differential includes gallstones, high trigs, alcohol, medications, anatomical variants of pancreas. No gallstones seen on previous imaging, last triglycerides normal. Suspect medication could be cause, otherwise purely idiopathic. (2) Non-insulin dependent type 2 diabetes mellitus Current Visit: No Status: Chronic Priority: Medium Code(s): E11.9 - TYPE 2 DIABETES MELLITUS WITHOUT COMPLICATIONS SNOMED Code(s): 62362543 Comment: - Diet controlled at home - Sliding scale added while patient is admitted (3) DVT prophylaxis Current Visit: Yes Status: Acute Priority: Low Code(s): UYG6471 - SNOMED Code(s): 890495700 Comment: -Moderate risk, will use SCDs Status and Disposition: inpatient
[2018-10-20] MEDS: NS 0.9% 1000 ML** 1,000 ML IV SCH (23:10)
[2018-10-20] MEDS: Insulin LISPRO* 1 UNITS UNIT SUBCUT SCH (23:38)
[2018-10-20] MEDS ORDERED: HYDROmorphone INJ* 0.5 MG/0.5 ML SYRINGE IV SLOW PU PRN (23:58)
[2018-10-21] MEDS ORDERED: diPHENhydraMINE IV* 25 MG in NS 0.9% 50 ML* 50 ML IVPB PRN (00:01)
[2018-10-21] MEDS ORDERED: diPHENhydraMINE IV* 50 MG/ML 1 ml VIAL (BENADRYL) IV PRN (00:29)
[2018-10-21] MEDS: HYDROmorphone INJ1* 1 MG/ML SYRINGE IV SLOW PU PRN ×7 (00:51→21:19)
[2018-10-21] MEDS: Insulin LISPRO* 1 UNITS UNIT SUBCUT SCH ×7 (03:26→21:28)
[2018-10-21] MEDS: Ondansetron INJ* 2 MG/ML VIAL IV PRN (04:51)
[2018-10-21 06:22] LABS: ABS Basophils 0 10^3/ul (0-0.2); ABS Eosinophils 0 10^3/ul (0-0.6); ABS Lymphocytes 0.6 10^3/ul (1.0-4.8); ABS Monocytes 0.9 10^3/ul (0-0.8); ABS Neutrophils 14.3 10^3/ul (1.5-7.7); ABS Nucleated RBC 0 10^3/ul; Eosinophil % 0 %; Hematocrit 42 % (33-41); Hemoglobin 13.9 g/dL (12.0-16.0); Lymphocyte % 3.8 %; Mean Corpuscular HGB Conc 33 g/dL (31-36); Mean Corpuscular Hemoglobin 30 pg (27-31); Mean Corpuscular Volume 91 fL (80-97); Mean Platelet Volume 10.6 fL (7.4-10.4); Nucleated Red Blood Cells % 0; Platelet Count 175 10^3/uL (150-450); Red Blood Count 4.66 10^6 /uL (3.70-4.87); Red Cell Distribution Width 16 % (10.5-15); White Blood Count 15.9 10^3/uL (3.5-10.8)
[2018-10-21 07:06] LABS: BUN/Creatinine Ratio 16.3 (8-20); Calcium 7.4 mg/dL (8.6-10.3); EGFR African American 40.2 (>60); EGFR Non-African American 33.2 (>60)
[2018-10-21 07:08] LABS: Potassium 5.4 mmol/L (3.5-5.0)
[2018-10-21] MEDS: NS 0.9% 1000 ML** 1,000 ML IV SCH ×3 (07:54→20:39)
[2018-10-21] MEDS ORDERED: Insulin LISPRO* 1 UNITS UNIT SUBCUT ONE (10:34)
--- NOTE | 2018-10-21 10:35 | PN ---
Subjective Date of Service: 10/21/18 Interval History: Patient reports she continues to have abdominal distention and diffuse pain. Feels about the same as yesterday. Denies SOB/CP. Denies feeling over sedated and states she is having a hard to sleeping due to pain. Has had intermittent dry heaving. No fevers/chills Reports the only new medications was Imdur a few months ago. Denies alcohol use. Family History: Findings - Mother of stroke age 79, Father unknown Social History: Findings - disabled, , 4 children, no alcohol, no tobacco , no drug use Past Medical History: Findings - PMH: asthma/COPD, degen disc disease, Type 2 diabetes, GERD, hyperlipidemia, hypertension; PSH LT ear surgery, L ulnar nerve release, tubal ligation Objective Active Medications: Dextrose (D50w Syringe 50 Ml*) 12.5 gm IV PUSH .FOR FS < 60 - SS PRN PRN Reason: FS < 60 Diphenhydramine HCl (Benadryl Iv*) 25 mg IV Q6H PRN PRN Reason: Allergy Symptoms Hydromorphone HCl (Dilaudid Inj1s*) 1 mg IV SLOW PU Q3H PRN PRN Reason: PAIN Last Admin: 10/21/18 07:54 Dose: 1 mg Sodium Chloride (Ns 0.9% 1000 Ml) 1,000 mls @ 175 mls/hr IV PER RATE [facility] Last Admin: 10/21/18 07:54 Dose: 175 mls/hr Insulin Human Lispro (Humalog*) 0 units SUBCUT Q4HR [facility]; Protocol Last Admin: 10/21/18 06:32 Dose: 2 units Ondansetron HCl (Zofran Inj*) 4 mg IV Q6H PRN PRN Reason: NAUSEA Last Admin: 10/21/18 04:51 Dose: 4 mg Vital Signs - 8 hr 10/21/18 10/21/18 10/21/18 03:00 04:45 05:52 Temperature 97.7 F Pulse Rate 80 Respiratory 20 22 18 Rate Blood Pressure 129/65 (mmHg) O2 Sat by Pulse 92 Oximetry 10/21/18 10/21/18 10/21/18 07:54 08:17 09:24 Temperature 98.4 F Pulse Rate 106 Respiratory 22 18 14 Rate Blood Pressure 116/66 (mmHg) O2 Sat by Pulse 93 Oximetry Oxygen Devices in Use Now: None Appearance: A+O x3 appears ill but nontoxic Eyes: No Scleral Icterus, PERRLA Ears/Nose/Mouth/Throat: NL Teeth, Lips, Gums, Mucous Membranes Moist Respiratory: Symmetrical Chest Expansion and Respiratory Effort, Clear to Auscultation Cardiovascular: NL Sounds; No Murmurs; No JVD, RRR, No Edema Abdominal: - - distended, soft, tenderness throughout, no guarding Extremities: No Edema, No Clubbing, Cyanosis Neurological: Alert and Oriented x 3, NL Sensation, NL Muscle Strength and Tone Lines/Tubes/Other Access: Clean, Dry and Intact Peripheral IV Nutrition: Taking PO's Result Diagrams: 10/21/18 06:13 10/21/18 15:23 Additional Lab and Data: Laboratory Tests 10/20/18 10/20/18 10/20/18 16:30 16:30 16:30 Glucose 232 H Lactic Acid 1.5 Calcium 9.2 Magnesium 2.0 AST 23 ALT 23 Troponin I 0.00 C-Reactive Protein 4.44 Amylase 2282 H Lipase 7470 H Ur Specific [place] Urine Nitrate Ur Leukocyte Esterase Urine WBC (Auto) 10/20/18 20:05 Glucose Lactic Acid Calcium Magnesium AST ALT Troponin I C-Reactive Protein Amylase Lipase Ur Specific [place] > 1.060 H Urine Nitrate Negative Ur Leukocyte Esterase 2+ A Urine WBC (Auto) 1+(6-10/hpf) A Diagnostic Imaging: CT abdp/pelvis: acute pancreatitis. EKG Data: NSR, normal axis, borderline IVCD Assess/Plan/Problems-Billing Assessment: 58 year old with a PMH of HTN, COPD, previous tobacco abuse, HTN who presented with abdominal pain found to have acute pancreatitis - Patient Problems (1) Acute pancreatitis Comment: -CT showing acute pancreatitis showing "edematous change involving the pancreas with perpancreatic fat stranding and nonluculated fluid consistent with acute pancreatitis without loculated fluid collections" - unclear cause, no hx of alcohol use - add on triglycerides - continue bowel rest, aggressive rehydration, pain control, antiemetics. - GB ultrasound "no evidence of cholelithiasis or biliary duct dilatation is noted" - Lipase trending down - LFTs wnls - continue NS @ 175 ml/hr - pain control - zofran prn - small amounts of ice chips ok (2) Non-insulin dependent type 2 diabetes mellitus Comment: - Diet controlled at home - FSBG 160-190 - Lisporo low dose sliding scale added while patient is admitted (3) HTN (hypertension) Comment: - Hold home lisinopril, isosorbide nitrate, Cardizem d/t soft blood pressures (4) COPD (chronic obstructive pulmonary disease) Comment: - stable - continue nebs, home inhalers (5) Full code status (6) DVT prophylaxis Comment: -Moderate risk, will use SCDs Status and Disposition: inpatient with acute pancreatitis
[2018-10-21] MEDS ORDERED: Albuterol 2.5 MG/3 ML NEB.SOL* (0.083%) INH PRN (10:39)
[2018-10-21] MEDS: Pantoprazole IV* 40 MG IV SCH (11:09)
[2018-10-21 14:10] LABS: CO2 Carbon Dioxide 21 mmol/L (22-32); Calcium 6.9 mg/dL (8.6-10.3); Sodium 140 mmol/L (135-145)
[2018-10-21 14:16] LABS: BUN/Creatinine Ratio 19.2 (8-20); Blood Urea Nitrogen 25 mg/dL (6-24); EGFR African American 51.1 (>60); EGFR Non-African American 42.2 (>60); Glucose 181 mg/dL (70-100)
[2018-10-21 14:21] LABS: Chloride 113 mmol/L (101-111)
[2018-10-21 14:51] LABS: Anion Gap 6 mmol/L (2-11)
[2018-10-21 16:19] LABS: HDL Cholesterol 39.3 mg/dL
[2018-10-21] MEDS: BUDESONIDE INH SCH (21:24)
[2018-10-22] MEDS: HYDROmorphone INJ1* 1 MG/ML SYRINGE IV SLOW PU PRN ×5 (01:14→14:14)
[2018-10-22] MEDS: Insulin LISPRO* 1 UNITS UNIT SUBCUT SCH ×6 (02:09→22:52)
[2018-10-22] MEDS: NS 0.9% 1000 ML** 1,000 ML IV SCH ×3 (03:10→18:23)
[2018-10-22 06:07] LABS: ABS Basophils 0 10^3/ul (0-0.2); ABS Eosinophils 0 10^3/ul (0-0.6); ABS Lymphocytes 0.9 10^3/ul (1.0-4.8); ABS Monocytes 0.8 10^3/ul (0-0.8); ABS Neutrophils 15.7 10^3/ul (1.5-7.7); ABS Nucleated RBC 0 10^3/ul; Eosinophil % 0 %; Hematocrit 38 % (33-41); Hemoglobin 12.3 g/dL (12.0-16.0); Lymphocyte % 5.2 %; Mean Corpuscular HGB Conc 32 g/dL (31-36); Mean Corpuscular Hemoglobin 29 pg (27-31); Mean Corpuscular Volume 91 fL (80-97); Mean Platelet Volume 10.6 fL (7.4-10.4); Nucleated Red Blood Cells % 0; Platelet Count 131 10^3/uL (150-450); Red Blood Count 4.21 10^6 /uL (3.70-4.87); Red Cell Distribution Width 16 % (10.5-15); White Blood Count 17.5 10^3/uL (3.5-10.8)
[2018-10-22 06:33] LABS: Albumin 2.9 g/dL (3.2-5.2); Albumin/Globulin Ratio 1.6 (1-3); BUN/Creatinine Ratio 20.2 (8-20); EGFR African American 59.4 (>60); EGFR Non-African American 49.1 (>60); Globulin 1.8 g/dL (2-4); HDL Cholesterol 30.5 mg/dL; Potassium 4.3 mmol/L (3.5-5.0); Total Bilirubin 1.3 mg/dL (0.2-1.0); Total Protein 4.7 g/dL (6.4-8.9)
[2018-10-22 06:54] LABS: Calcium 6.1 mg/dL (8.6-10.3)
[2018-10-22] MEDS ORDERED: Calcium Gluconate INJ* 3 GM in NS 0.9% 250 ML* 250 ML IV ONE (06:57)
[2018-10-22] MEDS: BUDESONIDE INH SCH (07:14)
[2018-10-22] MEDS ORDERED: GLYCOPYRROLATE INH SCH (09:00)
[2018-10-22] MEDS ORDERED: [UNRECOGNIZED DRUG - OTHER] INH SCH (09:00)
[2018-10-22 09:34] LABS: TSH (Thyroid Stimulating Horm) 0.89 mcIU/mL (0.34-5.60)
[2018-10-22] MEDS: Pantoprazole IV* 40 MG IV SCH (10:47)
[2018-10-22] MEDS: Ondansetron INJ* 2 MG/ML VIAL IV PRN (11:04)
[2018-10-22] MEDS ORDERED: HYDROmorphone INJ1* 1 MG/ML SYRINGE IV SLOW PU PRN ×2 (16:55→18:16)
--- NOTE | 2018-10-22 18:28 | PN ---
Subjective Date of Service: 10/22/18 Interval History: Patient resting in bed on assessment. Patient is sleeping and needs questions repeated as she keeps closing her eyes during ROS and assessment. Discussed sedation with nurse and nurse reports patient has been sedating most of the day, she is requiring supplemental O2, and setting alarm on her phone for prn dilaudid. Patient reports pain is unchanged since admission. Reports she also continues to have nausea and vomiting, but prn medication has helped. Denies cp, sob, palpitations. Family History: Findings - Mother of stroke age 79, Father unknown Social History: Findings - disabled, , 4 children, no alcohol, no tobacco , no drug use Past Medical History: Findings - PMH: asthma/COPD, degen disc disease, Type 2 diabetes, GERD, hyperlipidemia, hypertension; PSH LT ear surgery, L ulnar nerve release, tubal ligation Objective Active Medications: Albuterol (Ventolin 2.5 Mg/3 Ml Neb.Ariadna*) 2.5 mg INH Q12HR PRN PRN Reason: SOB/WHEEZING Budesonide (Pulmicort Neb*) 0.25 mg INH RT.BID [facility] Dextrose (D50w Syringe 50 Ml*) 12.5 gm IV PUSH .FOR FS < 60 - SS PRN PRN Reason: FS < 60 Diphenhydramine HCl (Benadryl Iv*) 25 mg IV Q6H PRN PRN Reason: Allergy Symptoms Formoterol Fumarate (Perforomist Neb.Soln*(Nf)) 20 mcg INH RT.BID [facility] Hydromorphone HCl (Dilaudid Inj1s*) 0.5 mg IV SLOW PU Q4H PRN PRN Reason: PAIN Sodium Chloride (Ns 0.9% 1000 Ml) 1,000 mls @ 175 mls/hr IV PER RATE [facility] Last Admin: 10/22/18 12:42 Dose: 175 mls/hr Insulin Human Lispro (Humalog*) 0 units SUBCUT Q4HR [facility]; Protocol Last Admin: 10/22/18 14:26 Dose: 1 unit Ondansetron HCl (Zofran Inj*) 4 mg IV Q6H PRN PRN Reason: NAUSEA Last Admin: 10/22/18 11:04 Dose: 4 mg Pantoprazole Sodium (Protonix Iv*) 40 mg IV Q24H [facility] Last Admin: 10/22/18 10:47 Dose: 40 mg Vital Signs - 8 hr 10/22/18 10/22/18 10/22/18 11:04 12:26 14:14 Respiratory 16 18 16 Rate 10/22/18 10/22/18 15:14 17:49 Respiratory 18 18 Rate Oxygen Devices in Use Now: Nasal Cannula Appearance: Lethargic Eyes: No Scleral Icterus Ears/Nose/Mouth/Throat: Clear Oropharnyx, Mucous Membranes Moist Neck: NL Appearance and Movements; NL JVP Respiratory: Symmetrical Chest Expansion and Respiratory Effort, Clear to Auscultation Cardiovascular: NL Sounds; No Murmurs; No JVD, No Edema Abdominal: - - BS x4. Tender throughout to light touch. No distention. Lymphatic: No Cervical Adenopathy Extremities: No Clubbing, Cyanosis Skin: No Nodules or Sclerosis Neurological: Alert and Oriented x 3, NL Muscle Strength and Tone Nutrition: - - NPO Result Diagrams: 10/22/18 05:43 10/22/18 05:43 Additional Lab and Data: Laboratory Results - last 24 hr 10/21/18 10/21/18 10/22/18 20:28 21:22 02:05 WBC RBC Hgb Hct MCV MCH MCHC RDW Plt Count MPV Neut % (Auto) Lymph % (Auto) [place] % (Auto) Eos % (Auto) Baso % (Auto) Absolute Neuts (auto) Absolute Lymphs (auto) Absolute Monos (auto) Absolute Eos (auto) Absolute Basos (auto) Absolute Nucleated RBC Nucleated RBC % Sodium Potassium 4.6 Chloride Carbon Dioxide Anion Gap BUN Creatinine Est GFR ( Amer) Est GFR (Non-Af Amer) BUN/Creatinine Ratio Glucose POC Glucose (mg/dL) 180 H 185 H Calcium Total Bilirubin AST ALT Alkaline Phosphatase Total Protein Albumin Globulin Albumin/Globulin Ratio Triglycerides Cholesterol LDL Cholesterol HDL Cholesterol Amylase Lipase TSH 10/22/18 10/22/18 10/22/18 05:43 05:43 06:35 WBC 17.5 H RBC 4.21 Hgb 12.3 Hct 38 MCV 91 MCH 29 MCHC 32 RDW 16 H Plt Count 131 L MPV 10.6 H Neut % (Auto) 89.9 Lymph % (Auto) 5.2 [place] % (Auto) 4.8 Eos % (Auto) 0 Baso % (Auto) 0.1 Absolute Neuts (auto) 15.7 H Absolute Lymphs (auto) 0.9 L Absolute Monos (auto) 0.8 Absolute Eos (auto) 0 Absolute Basos (auto) 0 Absolute Nucleated RBC 0 Nucleated RBC % 0 Sodium 139 Potassium 4.3 Chloride 110 Carbon Dioxide 22 Anion Gap 7 BUN 23 Creatinine 1.14 H Est GFR ( Amer) 59.4 Est GFR (Non-Af Amer) 49.1 BUN/Creatinine Ratio 20.2 H Glucose 175 H POC Glucose (mg/dL) 134 H Calcium 6.1 L* Total Bilirubin 1.30 H AST 45 H ALT 15 Alkaline Phosphatase 34 Total Protein 4.7 L Albumin 2.9 L Globulin 1.8 L Albumin/Globulin Ratio 1.6 Triglycerides 156 Cholesterol 100 LDL Cholesterol 38 HDL Cholesterol 30.5 Amylase 1203 H Lipase 1454 H TSH 0.89 10/22/18 10/22/18 10:26 14:18 WBC RBC Hgb Hct MCV MCH MCHC RDW Plt Count MPV Neut % (Auto) Lymph % (Auto) [place] % (Auto) Eos % (Auto) Baso % (Auto) Absolute Neuts (auto) Absolute Lymphs (auto) Absolute Monos (auto) Absolute Eos (auto) Absolute Basos (auto) Absolute Nucleated RBC Nucleated RBC % Sodium Potassium Chloride Carbon Dioxide Anion Gap BUN Creatinine Est GFR ( Amer) Est GFR (Non-Af Amer) BUN/Creatinine Ratio Glucose POC Glucose (mg/dL) 172 H 159 H Calcium Total Bilirubin AST ALT Alkaline Phosphatase Total Protein Albumin Globulin Albumin/Globulin Ratio Triglycerides Cholesterol LDL Cholesterol HDL Cholesterol Amylase Lipase TSH Microbiology and Other Data: Microbiology 10/20/18 20:05 Urine Culture - Final Urine No Growth (<1,000 CFU/mL) Diagnostic Imaging: CT abdp/pelvis: acute pancreatitis. EKG Data: NSR, normal axis, borderline IVCD Assess/Plan/Problems-Billing Assessment: 58 year old with a PMH of HTN, COPD, previous tobacco abuse, HTN who presented with abdominal pain found to have acute pancreatitis - Patient Problems (1) Hypoxia Comment: - LS clear - Suspect secondary to medication, therefore dilaudid decrease in frequency and amount. Discussed this with and patient who were not happy about decrease, but discussed risk of continue hypoxia. Patient occasionally sleeping during this discussion. - Discussed with Ros PICKARD who agrees with plan - Incentive spirometer encouraged (2) Acute pancreatitis Comment: -CT showing acute pancreatitis showing "edematous change involving the pancreas with perpancreatic fat stranding and nonluculated fluid consistent with acute pancreatitis without loculated fluid collections" - unclear cause, no hx of alcohol use, triglycerides wnl - continue bowel rest, aggressive rehydration, pain control, antiemetics. - GB ultrasound "no evidence of cholelithiasis or biliary duct dilatation is noted" - Lipase trending down - LFTs wnls - continue NS @ 175 ml/hr - pain control - zofran prn - small amounts of ice chips ok (3) COPD (chronic obstructive pulmonary disease) Comment: - stable - continue nebs, home inhalers (4) Non-insulin dependent type 2 diabetes mellitus Comment: - Diet controlled at home - FSBG 160-190 - Lisporo low dose sliding scale added while patient is admitted (5) HTN (hypertension) Comment: - Hold home lisinopril, isosorbide nitrate, Cardizem d/t soft blood pressures (6) DVT prophylaxis Comment: -Moderate risk, will use SCDs (7) Full code status Status and Disposition: inpatient with acute pancreatitis Attending: Jodi Vazquez
[2018-10-22] MEDS: Budesonide NEB* 0.25 MG/2 ML NEB.SOLN INH SCH (20:47)
[2018-10-22] MEDS: FORMOTEROL INH SCH (20:47)
[2018-10-22 21:17] LABS: B garinii/B afzelii PCR Negative (Negative); B mayonii PCR Negative (Negative)
[2018-10-23] MEDS: HYDROmorphone INJ1* 1 MG/ML SYRINGE IV SLOW PU PRN ×11 (00:12→22:25)
[2018-10-23] MEDS: NS 0.9% 1000 ML** 1,000 ML IV SCH ×2 (00:22→06:05)
[2018-10-23] MEDS: Insulin LISPRO* 1 UNITS UNIT SUBCUT SCH ×6 (02:49→22:19)
[2018-10-23 07:15] LABS: ABS Basophils 0 10^3/ul (0-0.2); ABS Eosinophils 0 10^3/ul (0-0.6); ABS Lymphocytes 0.6 10^3/ul (1.0-4.8); ABS Monocytes 0.8 10^3/ul (0-0.8); ABS Neutrophils 11.8 10^3/ul (1.5-7.7); ABS Nucleated RBC 0 10^3/ul; Eosinophil % 0 %; Hematocrit 36 % (33-41); Hemoglobin 11.7 g/dL (12.0-16.0); Lymphocyte % 4.6 %; Mean Corpuscular HGB Conc 33 g/dL (31-36); Mean Corpuscular Hemoglobin 30 pg (27-31); Mean Corpuscular Volume 91 fL (80-97); Mean Platelet Volume 10.4 fL (7.4-10.4); Nucleated Red Blood Cells % 0; Platelet Count 134 10^3/uL (150-450); Red Cell Distribution Width 16 % (10.5-15); White Blood Count 13.2 10^3/uL (3.5-10.8)
[2018-10-23 07:30] LABS: Albumin 2.8 g/dL (3.2-5.2); Albumin/Globulin Ratio 1.4 (1-3); BUN/Creatinine Ratio 15.9 (8-20); Calcium 6.5 mg/dL (8.6-10.3); EGFR African American 86.9 (>60); EGFR Non-African American 71.9 (>60); Potassium 3.9 mmol/L (3.5-5.0); Total Protein 4.8 g/dL (6.4-8.9)
[2018-10-23] MEDS: FORMOTEROL INH SCH ×2 (09:19→19:42)
[2018-10-23] MEDS: Budesonide NEB* 0.25 MG/2 ML NEB.SOLN INH SCH ×2 (09:19→19:42)
[2018-10-23] MEDS ORDERED: Formoterol 20 MCG/2ML NEB (NF) 10 MCG/ML NEB.SOLN ONE ×2 (09:19→19:42)
[2018-10-23] MEDS ORDERED: NS 0.9% 1000 ML** 1,000 ML IV SCH ×3 (09:52→18:08)
[2018-10-23] MEDS: Pantoprazole IV* 40 MG IV SCH (10:16)
[2018-10-23] MEDS: Ondansetron INJ* 2 MG/ML VIAL IV PRN ×2 (10:25→20:23)
[2018-10-23] MEDS ORDERED: Ketorolac INJ* 60 MG/2 ML VIAL IV PUSH ONE (11:17)
[2018-10-23] MEDS ORDERED: Bisacodyl SUPP* 10 MG SUPP PR ONE (12:31)
[2018-10-23] MEDS ORDERED: Sodium Phosphate ADULT ENEMA* 118 ml bottle PR ONE (13:48)
[2018-10-23] MEDS ORDERED: Magnesium CITRATE* 300 ML BTL PO ONE (13:48)
[2018-10-23] MEDS ORDERED: Iodixanol* (CONTRAST) 320 MG/ML 100 ML SDV IV ONE (16:04)
--- NOTE | 2018-10-23 16:31 | CONS ---
Amended report to enter date of consult. CONSULTATION REPORT: DATE OF CONSULT: 10/23/18. REQUESTING PHYSICIAN: Iris Haynes NP REASON FOR CONSULTATION: Pancreatitis, abdominal pain. HISTORY OF PRESENT ILLNESS: This is a 58-year-old female with a past medical history of asthma, COPD, diabetes mellitus type 2, GERD, hyperlipidemia, hypertension and prior pancreatitis, who is presenting to the hospital with severe epigastric pain and periumbilical pain, it started suddenly on 10/20/18 in the afternoon, was sharp in nature, non-relenting, waxes and wanes, but never fully goes away. At worst, it is 10/10 and sharp. Pain medicine makes it slightly better. Eating was making it worse. She does admit to longstanding reflux, but no dysphagia or odynophagia, admits to associated nausea, but no emesis. Appetite has been poor. Denies weight loss or weight gain. Admits to NSAID usage. No black or blood in the stool, but she has had difficulty with her bowels. She had colonoscopy in August with Dr. Emiliano Quintana with a few small polyps removed and some residual stool indicating constipation. She does not consume alcohol. No recent new medications in the last 6 months. The remainder of the 14-point review of systems is grossly negative. PAST MEDICAL HISTORY: Asthma, COPD, degenerative disk disease, type 2 diabetes , GERD, hyperlipidemia, hypertension, tubal ligation, colonoscopy in August 2018. HOME MEDICATIONS: Include: 1. Budesonide. 2. Diltiazem. 3. Fenofibrate. 4. Formoterol. 5. Ibuprofen. 6. Isosorbide. 7. Lisinopril. 8. Lovastatin. 9. Montelukast. 10. Pantoprazole. 11. Ranitidine. 12. Albuterol ipratropium. FAMILY HISTORY: Mother of stroke at age 79. No history of GI cancers or inflammatory bowel disease. SOCIAL HISTORY: Disabled. No alcohol. No tobacco. No drug use. REVIEW OF SYSTEMS: The remainder of the 14-point review of systems is grossly negative except for as described in the HPI. PHYSICAL EXAM: Vital Signs: Blood pressure is 156/69, pulse is 70, respiratory rate is 18 to 20, she is 94% on 4 L. T-max in 24 hours is 99.6. In general, lethargic, but arousable. HEENT: Atraumatic, normocephalic. Pupils equal, round, and reactive to light. Conjunctivae are pink. Sclerae anicteric. Cardiovascular: Regular rate and rhythm. S1, S2. Pulmonary System : Diminished bilaterally. Abdomen: Soft, mild distention, possible [place] and [place] sign appreciated. Bowel sounds hypoactive. Extremities: No clubbing or cyanosis. Skin: A few scattered ecchymosis. DIAGNOSTIC STUDIES/LAB DATA: WBC on admission was 27.7, hemoglobin was 14.5. Today, WBC count is 13.2, hemoglobin 11.7. Amylase and lipase on admission were 2282 and 7470 respectively. Triglycerides are 156. She had a CT which showed pancreatitis. She had a right upper quadrant ultrasound, which did not show any evidence of cholelithiasis. She had a negative renal ultrasound on 10/23/18. On the CT of the abdomen and pelvis, there was also noted to be oral contrast, could not exclude gastroesophageal reflux along with colonic diverticulosis. ASSESSMENT AND PLAN: 1. This is a 58-year-old female with acute pancreatitis, this is her second episode. She does not have clear etiology. Continue with aggressive IV fluid hydration and analgesia per primary team. Today, she has evidence of possible [place] and [place] sign along with worsening of pain. Would recommend reimaging at this point given the previous CT was 3 days ago. IgG4 subclass pending. Ultimately, she will need endoscopic ultrasound to fully evaluate the etiology of her pancreatitis given that there is no clear cause. I think her lisinopril should be stopped or switched to a different medication as that is a class 3 medicine that has been associated with pancreatitis, but the data is a little bit weak. She should have an endoscopic ultrasound. 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 Emiliano Quintana, as an outpatient to have this arranged at either [place] or [place]. 2. Abdominal pain appears to be severe pancreatitis. Recommend reimaging as above and continued supportive care. 3. Severe constipation. The patient has not moved her bowel since Saturday. Recommend enema therapy as well as aggressive therapy including potentially magnesium citrate. Monitor her bowel function closely with the addition of her narcotics, may end up needing a dose of Relistor given the narcotic usage. [id number]/[facility] #: [id number] [facility]
--- NOTE | 2018-10-23 16:31 | PN ---
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 Patient reports pain has not improved and she cannot tolerate continued pain. Also requested PO fluids and something to bowels as she has not moved her bowels since Saturday. Reports abd pain and constipation. Denies nausea and diarrhea. Report abd pain also radiates to bilateral flank. Denies cp, palpitations, sob, fever, chills. Family History: Findings - Mother of stroke age 79, Father unknown Social History: Findings - disabled, , 4 children, no alcohol, no tobacco , no drug use Past Medical History: Findings - PMH: asthma/COPD, degen disc disease, Type 2 diabetes, GERD, hyperlipidemia, hypertension; PSH LT ear surgery, L ulnar nerve release, tubal ligation Objective Active Medications: Albuterol (Ventolin 2.5 Mg/3 Ml Neb.Ariadna*) 2.5 mg INH Q12HR PRN PRN Reason: SOB/WHEEZING Budesonide (Pulmicort Neb*) 0.25 mg INH RT.BID [facility] Last Admin: 10/23/18 09:19 Dose: 0.25 mg Dextrose (D50w Syringe 50 Ml*) 12.5 gm IV PUSH .FOR FS < 60 - SS PRN PRN Reason: FS < 60 Diphenhydramine HCl (Benadryl Iv*) 25 mg IV Q6H PRN PRN Reason: Allergy Symptoms Formoterol Fumarate (Perforomist Neb.Soln*(Nf)) 20 mcg INH RT.BID [facility] Last Admin: 10/23/18 09:19 Dose: 20 mcg Hydromorphone HCl (Dilaudid Inj1s*) 0.5 mg IV SLOW PU Q2H PRN PRN Reason: PAIN Last Admin: 10/23/18 14:21 Dose: 0.5 mg Sodium Chloride (Ns 0.9% 1000 Ml) 1,000 mls @ 125 mls/hr IV PER RATE [facility] Insulin Human Lispro (Humalog*) 0 units SUBCUT Q4HR [facility]; Protocol Last Admin: 10/23/18 12:21 Dose: Not Given Ondansetron HCl (Zofran Inj*) 4 mg IV Q6H PRN PRN Reason: NAUSEA Last Admin: 10/23/18 10:25 Dose: 4 mg Pantoprazole Sodium (Protonix Iv*) 40 mg IV Q24H [facility] Last Admin: 10/23/18 10:16 Dose: 40 mg Vital Signs - 8 hr 10/23/18 10/23/18 10/23/18 09:01 09:04 09:33 Temperature 98.5 F Pulse Rate 92 90 Respiratory 20 20 18 Rate Blood Pressure 154/76 (mmHg) O2 Sat by Pulse 96 95 Oximetry 10/23/18 10/23/18 10/23/18 10:13 11:13 11:27 Temperature 98.1 F Pulse Rate 70 Respiratory 27 20 30 Rate Blood Pressure 156/69 (mmHg) O2 Sat by Pulse 94 Oximetry 10/23/18 10/23/18 10/23/18 12:38 13:38 14:21 Temperature Pulse Rate Respiratory 30 20 28 Rate Blood Pressure (mmHg) O2 Sat by Pulse Oximetry Oxygen Devices in Use Now: Nasal Cannula Appearance: Agitated as evidence by pressured speech. Eyes: No Scleral Icterus Ears/Nose/Mouth/Throat: Clear Oropharnyx, Mucous Membranes Moist Neck: NL Appearance and Movements; NL JVP Respiratory: Symmetrical Chest Expansion and Respiratory Effort, Clear to Auscultation Cardiovascular: NL Sounds; No Murmurs; No JVD, RRR, No Edema Abdominal: - - Soft. Tender throughout to light touch. BS x4. + CVA tenderness bilaterally. Lymphatic: No Cervical Adenopathy Extremities: No Edema Skin: No Rash or Ulcers Neurological: Alert and Oriented x 3 Nutrition: - - NPO Result Diagrams: 10/23/18 06:42 10/23/18 06:39 Additional Lab and Data: Laboratory Results - last 24 hr 10/20/18 10/22/18 10/22/18 16:30 18:15 22:45 WBC RBC Hgb Hct MCV MCH MCHC RDW Plt Count MPV Neut % (Auto) Lymph % (Auto) [place] % (Auto) Eos % (Auto) Baso % (Auto) Absolute Neuts (auto) Absolute Lymphs (auto) Absolute Monos (auto) Absolute Eos (auto) Absolute Basos (auto) Absolute Nucleated RBC Nucleated RBC % Sodium Potassium Chloride Carbon Dioxide Anion Gap BUN Creatinine Est GFR ( Amer) Est GFR (Non-Af Amer) BUN/Creatinine Ratio Glucose POC Glucose (mg/dL) 158 H 159 H Calcium Total Bilirubin AST ALT Alkaline Phosphatase Total Protein Albumin Globulin Albumin/Globulin Ratio Amylase Lipase B. burgdorferi (PCR) Negative Lyme DNA Comment See comment B.garinii/afzelii PCR Negative B. mayonii (PCR) Negative 10/23/18 10/23/18 10/23/18 02:35 06:08 06:39 WBC RBC Hgb Hct MCV MCH MCHC RDW Plt Count MPV Neut % (Auto) Lymph % (Auto) [place] % (Auto) Eos % (Auto) Baso % (Auto) Absolute Neuts (auto) Absolute Lymphs (auto) Absolute Monos (auto) Absolute Eos (auto) Absolute Basos (auto) Absolute Nucleated RBC Nucleated RBC % Sodium 142 Potassium 3.9 Chloride 107 Carbon Dioxide 23 Anion Gap 12 H BUN 13 Creatinine 0.82 Est GFR ( Amer) 86.9 Est GFR (Non-Af Amer) 71.9 BUN/Creatinine Ratio 15.9 Glucose 156 H POC Glucose (mg/dL) 163 H 165 H Calcium 6.5 L Total Bilirubin 1.00 AST 43 H ALT 18 Alkaline Phosphatase 50 Total Protein 4.8 L Albumin 2.8 L Globulin 2.0 Albumin/Globulin Ratio 1.4 Amylase 602 H Lipase 283 H B. burgdorferi (PCR) Lyme DNA Comment B.garinii/afzelii PCR B. mayonii (PCR) 10/23/18 10/23/18 10/23/18 06:42 10:19 14:27 WBC 13.2 H RBC 3.90 Hgb 11.7 L Hct 36 MCV 91 MCH 30 MCHC 33 RDW 16 H Plt Count 134 L MPV 10.4 Neut % (Auto) 89.1 Lymph % (Auto) 4.6 [place] % (Auto) 6.2 Eos % (Auto) 0 Baso % (Auto) 0.1 Absolute Neuts (auto) 11.8 H Absolute Lymphs (auto) 0.6 L Absolute Monos (auto) 0.8 Absolute Eos (auto) 0 Absolute Basos (auto) 0 Absolute Nucleated RBC 0 Nucleated RBC % 0 Sodium Potassium Chloride Carbon Dioxide Anion Gap BUN Creatinine Est GFR ( Amer) Est GFR (Non-Af Amer) BUN/Creatinine Ratio Glucose POC Glucose (mg/dL) 151 H 158 H Calcium Total Bilirubin AST ALT Alkaline Phosphatase Total Protein Albumin Globulin Albumin/Globulin Ratio Amylase Lipase B. burgdorferi (PCR) Lyme DNA Comment B.garinii/afzelii PCR B. mayonii (PCR) Microbiology and Other Data: Microbiology 10/20/18 20:05 Urine Urine Culture - Final No Growth (<1,000 CFU/mL) Diagnostic Imaging: . EKG Data: NSR, normal axis, borderline IVCD Assess/Plan/Problems-Billing Assessment: 58 year old with a PMH of HTN, COPD, previous tobacco abuse, HTN who presented with abdominal pain found to have acute pancreatitis - Patient Problems (1) Hypoxia Comment: - LS clear - Suspect secondary to medication, therefore dilaudid decreased in frequency and amount. - Incentive spirometer encouraged (2) Acute pancreatitis Comment: - Unclear cause, no hx of alcohol use, triglycerides wnl - Due to no improvement in pain GI consulted and we very much appreciate their input. Dr Lo reports patient has [place]'s and Croft Hinkle's signs, therefore, recommends continue NPO status and repeating CT with contrast. Also recommended aggressive bowel regime. Finally also recommended stopping Lisinpril as this could be increase risk of pancreatitis. He also reports she will need UEU as outpatient. - Continue bowel rest, rehydration, pain control, antiemetics. - Lipase trending down (3) COPD (chronic obstructive pulmonary disease) Comment: - stable - continue nebs, home inhalers (4) Non-insulin dependent type 2 diabetes mellitus Comment: - Diet controlled at home - FSBG 160-190 - Lisporo low dose sliding scale added while patient is admitted (5) HTN (hypertension) Comment: - Stop lisinopril - Hold isosorbide nitrate and Cardizem d/t soft blood pressures (6) DVT prophylaxis Comment: -Moderate risk, will use SCDs (7) Full code status Status and Disposition: inpatient with acute pancreatitis Attending: Chelsea Chapman
[2018-10-23] MEDS: Lidocaine PATCH 5%* 1 PATCH TRANSDERM SCH (21:48)
[2018-10-24] MEDS ORDERED: Lidocaine Patch REMOVE* 1 NOTE MISC PATCH OFF SCH
[2018-10-24] MEDS: HYDROmorphone INJ1* 1 MG/ML SYRINGE IV SLOW PU PRN ×14 (00:29→17:05)
[2018-10-24] MEDS: Insulin LISPRO* 1 UNITS UNIT SUBCUT SCH ×4 (02:33→14:08)
[2018-10-24 06:08] LABS: Hematocrit 34 % (33-41); Hemoglobin 11.1 g/dL (12.0-16.0); Mean Corpuscular HGB Conc 33 g/dL (31-36); Mean Corpuscular Hemoglobin 30 pg (27-31); Mean Corpuscular Volume 91 fL (80-97); Platelet Count 178 10^3/uL (150-450); Red Cell Distribution Width 15 % (10.5-15); White Blood Count 13.6 10^3/uL (3.5-10.8)
[2018-10-24 06:31] LABS: Albumin 2.9 g/dL (3.2-5.2); Albumin/Globulin Ratio 1.4 (1-3); BUN/Creatinine Ratio 15.9 (8-20); Calcium 6.8 mg/dL (8.6-10.3); EGFR African American 117.9 (>60); EGFR Non-African American 97.4 (>60); Globulin 2.1 g/dL (2-4); Potassium 3.3 mmol/L (3.5-5.0); Total Bilirubin 1.1 mg/dL (0.2-1.0)
[2018-10-24 06:38] LABS: Immature Granulocytes 5 % (0-9); Lymphocytes % 3 %; Monocytes % 5 %; Myelocytes % 2 % (0-1); Neutrophil % 87 %
[2018-10-24 06:39] LABS: ABS Neutrophils 12.51 10^3/ul (1.5-7.7)
[2018-10-24] MEDS: Lidocaine PATCH 5%* 1 PATCH TRANSDERM SCH (07:34)
[2018-10-24] MEDS ORDERED: Formoterol 20 MCG/2ML NEB (NF) 10 MCG/ML NEB.SOLN ONE (07:47)
[2018-10-24] MEDS: FORMOTEROL INH SCH (07:47)
[2018-10-24] MEDS: Budesonide NEB* 0.25 MG/2 ML NEB.SOLN INH SCH (07:47)
[2018-10-24] MEDS: Pantoprazole IV* 40 MG IV SCH (09:40)
[2018-10-24] MEDS: Ondansetron INJ* 2 MG/ML VIAL IV PRN (10:39)
--- NOTE | 2018-10-24 11:40 | CONS ---
CC: Damaso Peralta MD CONSULTATION REPORT: DATE OF CONSULT: 10/24/18 HISTORY OF PRESENT ILLNESS: Ms. Clark is a 58-year-old who has been admitted with pancreatitis. She has had unremitting pain, has required a lot of intravenous fluid. She has had a repeat CT scan, whi alisson is raising concern for pancreatic necrosis and Surgery has been consulted to address the question of pancreatic necrosis. PHYSICAL EXAMINATION: On examination, she is a well-developed, well-nourished female. She appears q uite uncomfortable. She does not appear acutely ill. Color is good. Skin is well perfused. She is not diaphoretic. Abdomen is distended and quite tender, especially in the epigastrium. It radiates straight through to her back. There is no definite peritonitis. Her I's and O's show that she has been sequestering fluid for a number of days now. She continues to have an elevated white count, alt enio it has come down quite a bit from where she started. She has had hypocalcemia and her platelet count has fallen as well, as has her hemoglobin. IMPRESSION: A 58-year-old female with pancreatitis, unremitting pain for quite a number of days with a CT scan that seems to have progressed to early pancreatic necrosis. I discussed this with Dr. Vazquez and with the patient and her , and at this facility, we do no t have any surgeons who are able to treat pancreatic necrosis, and although she is not showing signs of sepsis or decompensation at present, I would hate to see her decompensate due to pancreatic necros is and then have a difficult time trying to get her the care she needs. I will leave it to the discretion of the hospitalist service, but consideration should be taken to tr will to a facility that can handle serious pancreatitis and pancreatic necrosis and pancreatic infe ction. [id number]/[facility] #: [id number]
--- NOTE | 2018-10-24 11:48 | TRS ---
DATE OF ADMISSION: 10/20/2018. DATE OF TRANSFER: 10/24/2018. ACCEPTING PHYSICIAN: Dr. Christa Maldonado, [facility]. PRINCIPAL TRANSFER DIAGNOSIS: Necrotizing pancreatitis. SECONDARY TRANSFER DIAGNOSES: 1. History of hypertension. 2. History of noninsulin dependent diabetes. PHYSICAL EXAMINATION AT THE TIME OF TRANSFER: General: Alert, ill-appearing female who appears older than her stated age. Vital Signs: Temperature 98.1, heart rate 91, respiratory rate 16, pulse ox 92 percent on 2 liters, blood pressure 151/67. HEENT: Pupils are 2 mm bilaterally and reactive to light. Oral mucosa is dry. Neck: No JVP, no adenopathy. Chest: She is tachycardic with no murmurs. Lungs: Clear bilaterally. Abdomen: Distended, tender diffusely to palpation with guarding. No rebound or rigidity. Her liver is not palpable. Extremities: She has no ecchymosis on her abdomen or her back. Negative [place] sign. Extremities: No edema, rashes, or ulcers. PERTINENT IMAGING: An abdomen and pelvis CT done on 10/23/2018 showed pancreatic edema and peripancreatic inflammatory change consistent with acute pancreatitis with loss of enhancement of portions of the pancreas which may suggest pancreatic necrosis, hepatomegaly with fatty infiltration of the liver, ascites, and bilateral pleural effusions with compressive atelectasis of the lung bases bilaterally. LABORATORY DATA ON THE DAY OF DISCHARGE: White blood cells 13.6, they were 27.7 at admission, her hemoglobin is 11.1, and her platelet count is 178,000; sodium 137, potassium 3.3, please note this has been repleted on the morning of transfer, chloride 101, bicarb 25, anion gap 11, creatinine 0.63, glucose 160, calcium 6.8, total bilirubin 1.1. MEDICATIONS AT THE TIME OF TRANSFER: 1. Dilaudid 1 mg q.1 hour prn pain. 2. Protonix 40 mg IV daily. 3. Normal saline at 75 ml per hour. HOSPITAL COURSE BY PROBLEM: 1. Acute idiopathic pancreatitis: This is Ms. Clark's second episode of idiopathic pancreatitis in her life. At this point an etiology is unclear. She had been on Lisinopril which there have been case reports with relation to pancreatitis; however, this is not totally clear. Her imaging showed no evidence of gallbladder disease. An IgG is pending at the time of transfer. A GI has been consulted and recommended ongoing supportive care. However, on October 23, her pain was not improving despite supportive care so a repeat CT was obtained which showed concern for necrotizing pancreatitis. Our surgeons were consulted who recommended transfer to a higher level of care where pancreatic debridement can be performed should she need it. This is not something that our center does. At the time of transfer, she is hemodynamically stable; however, her pain has been difficult to control. Antibiotics have not yet been initiated. 2. Hypertension: Her blood pressure has been acceptable despite holding her p.o. antihypertensives. 3. Type 2 diabetes: Her blood sugars have been acceptable on a sliding scale. DIET: She is NPO except ice chips. CONDITION AT THE TIME OF TRANSFER: Stable. Please do not hesitate to contact me with any questions or concerns about Ms. Clark. [id number]/[facility] #: [id number] MTDD
[2018-10-24] MEDS: NS 0.9% 1000 ML** 1,000 ML IV SCH ×2 (12:08→13:55)
[2018-10-24] MEDS: KCL 20 MEQ/100 ML IVPREMIX* 20 MEQ/100 ML BAG IV SCH ×2 (12:09→14:01)
[2018-10-24 16:49] VITALS: BP 167/77
== END 2018-10-24 17:11 | disposition short-term general hospital (02) | DRG 439 ==
LOC: ED 16:08 → MED 20:21
PROVIDERS: ADMIT Internal Medicine; ATTEND Internal Medicine
DX: K85.01 Idiopathic acute pancreatitis with uninfected necrosis (principal); J90 Pleural effusion, not elsewhere classified; J98.11 Atelectasis; R18.8 Other ascites; E11.9 Type 2 diabetes mellitus without complications; E78.00 Pure hypercholesterolemia, unspecified; J44.9 Chronic obstructive pulmonary disease, unspecified; K21.9 Gastro-esophageal reflux disease without esophagitis; K57.90 Diverticulosis of intestine, part unspecified, without perforation or abscess without bleeding; K59.09 Other constipation; M19.90 Unspecified osteoarthritis, unspecified site; M81.0 Age-related osteoporosis without current pathological fracture; M41.9 Scoliosis, unspecified; H91.90 Unspecified hearing loss, unspecified ear; E78.5 Hyperlipidemia, unspecified; I10 Essential (primary) hypertension; E83.51 Hypocalcemia; R09.02 Hypoxemia; K76.0 Fatty (change of) liver, not elsewhere classified; Z98.51 Tubal ligation status; Z88.0 Allergy status to penicillin; Z88.8 Allergy status to other drugs, medicaments and biological substances; Z88.6 Allergy status to analgesic agent; Z88.1 Allergy status to other antibiotic agents; Z88.5 Allergy status to narcotic agent; Z86.14 Personal history of Methicillin resistant Staphylococcus aureus infection; Z82.49 Family history of ischemic heart disease and other diseases of the circulatory system; Z83.3 Family history of diabetes mellitus; Z82.3 Family history of stroke; Z82.5 Family history of asthma and other chronic lower respiratory diseases
CPT/HCPCS: 36415; 74019; 74177; 76705; 76775; 80048; 80053; 80061; 81003; 81015; 82150; 82784; 82787; 83605; 83690; 83735; 84100; 84132; 84443; 84484; 85025; 86140; 87086; 87476; 87798; 93005; 94640; 99284; A9270-GY; J0610; J1170; J1885; J2270; J2405; J3480; Q9967

== ENCOUNTER 2018-11-14 19:11 | Emergency (ER) | payer MEDICARE, MEDICAID ==
[2018-11-14] MEDS ORDERED: HYDROcodone/ACETAMIN 5-325 MG* 1 TAB PO ONE (19:35)
--- NOTE | 2018-11-14 19:42 | ED ---
Abdominal Pain/Female - HPI Summary HPI Summary: The patient is a 58 y/o F presenting to [facility] with a chief complaint of increased LUQ soreness and bloating with gradual onset for the last week. She has hx of pancreatitis and was [facility] with discharge one week ago. She states that she felt well leaving the hospital, although she had mild edema in the BLE. Since leaving, the edema has worsened, and she has been unable to intake solids and liquids due to the pain. In the ED, her pain is rated 6/10 in severity. She additionally c/o diarrhea. She denies CP and SOB. She has been taking the pain medications as prescribed. - History of Current Complaint Chief Complaint: EDAbdPain Stated Complaint: DOES NOT FEEL LIKE EATING PER EMS Time Seen by Provider: 11/14/18 19:28 Hx Obtained From: Patient Onset/Duration: Gradual Onset, Lasting Days - one week, Still Present Timing: Days Severity Initially: Mild Severity Currently: Moderate Pain Intensity: 6 Pain Scale Used: 0-10 Numeric Location: Discrete At: LUQ Radiates: No Character: Other: - soreness with bloating Aggravating Factor(s): Food Alleviating Factor(s): Nothing Associated Signs and Symptoms: Positive: Decreased Appetite, Diarrhea, Other: - POSITIVE: BLE edema; NEGATIVE: SOB. Negative: Chest Pain Allergies/Adverse Reactions: Allergies Allergy/AdvReac Type Severity Reaction Status Date / Time Adhesive Tape Allergy Mild Rash Verified 09/20/18 09:44 amoxicillin [From Augmentin] Allergy Rash Verified 09/20/18 09:44 azithromycin Allergy Rash And Verified 09/20/18 09:44 Itching clavulanic acid Allergy Rash Verified 09/20/18 09:44 [From Augmentin] moxifloxacin [From Avelox] Allergy Rash Verified 09/20/18 09:44 tapentadol [From Nucynta] Allergy Rash Verified 09/20/18 09:44 tolmetin [From Tolectin] Allergy Rash Verified 09/20/18 09:44 valdecoxib [From Bextra] Allergy Rash Verified 09/20/18 09:44 hydromorphone [From Dilaudid] AdvReac Rash Verified 10/23/18 11:19 morphine AdvReac Difficulty Verified 10/23/18 11:19 Breathing PERFUMES Allergy Severe DYSPNEA Uncoded 09/20/18 09:44 PMH/Surg Hx/FS Hx/Imm Hx Endocrine/Hematology History: Reports: Hx Diabetes - no meds Denies: Hx Anticoagulant Therapy, Hx Blood Disorders, Hx Blood Transfusions, Hx Bone Marrow Disease, Hx Systemic Lupus Erythematosus, Hx Sickle Cell Disease , Hx Thyroid Disease, Hx Anemia, Hx Unexplained Bleeding Cardiovascular History: Reports: Hx Hypercholesterolemia, Hx Hypotension, Hx Hypertension, Other Cardiovascular Problems/Disorders - DIABETIC Denies: Hx Aneurysm, Hx Angina, Hx Angioplasty, Hx Auto Implanted Cardiovert Defib, Hx Cardiac Arrest, Hx Cardiomegaly, Hx Congenital Heart Disease, Hx Congestive Heart Failure, Hx Coronary Artery Disease, Hx Deep Vein Thrombosis, Hx Pacemaker/ICD, Hx Peripheral Vascular Disease, Hx Rheumatic Fever, Hx Syncope , Hx Valvular Heart Disease Respiratory History: Reports: Hx Asthma - USES INHALERS, Hx Chronic Bronchitis, Hx Chronic Obstructive Pulmonary Disease (COPD), Hx Pneumonia, Hx Seasonal Allergies, Other Respiratory Problems/Disorders Denies: Hx Cystic Fibrosis, Hx Lung Cancer, Hx Pleural Effusion, Hx Pulmonary Edema, Hx Pulmonary Embolism, Hx Sleep Apnea GI History: Reports: Hx Diverticulosis, Hx Gastroesophageal Reflux Disease - ON MEDICATION FOR STATES CONTROLLED, Other GI Disorders - CHRONIC CONSTIPATION Denies: Hx Ulcer History: Denies: Hx Acute Renal Failure, Hx Benign Prostatic Hyperplasia, Hx Chronic Renal Failure, Hx Dialysis, Hx Kidney Infection, Hx Kidney Stones, Hx Renal Disease, Other Problems/Disorders Musculoskeletal History: Reports: Hx Arthritis, Hx Back Problems, Hx Bursitis, Hx Osteoporosis, Hx Scoliosis, Hx Tendonitis, Other Musculoskeletal History - DEGENERATIVE DISC DISEASE Denies: Hx Rheumatoid Arthritis, Hx Congenital Bone Abnormalities, Hx Fibromyalgia, Hx Gout, Hx Orthopedic Injury Sensory History: Reports: Hx Contacts or Glasses - GLASSES, Hx Hearing Problem Denies: Hx Cataracts, Hx Eye Injury, Hx Eye Prosthesis, Hx Glaucoma, Hx Macular Degeneration, Hx Vision Problem, Hx Deafness, Hx Hearing Aid, Other Sensory Impairments Opthamlomology History: Reports: Hx Contacts or Glasses - GLASSES Denies: Hx Cataracts, Hx Eye Injury, Hx Eye Prosthesis, Hx Glaucoma, Hx Macular Degeneration, Hx Vision Problem, Other Sensory Impairments Neurological History: Reports: Hx Headaches - reportedly d/t degenerative disc disease Denies: Hx Dementia Psychiatric History: Denies: Hx Anxiety, Hx Attention Deficit Hyperactivity Disorder, Hx Eating Disorder, Hx Depression, Hx Panic Disorder, Hx Post Traumatic Stress Disorder, Hx Inpatient Treatment, Hx Community Mental Health Tx, Hx Schizophrenia, Hx Bipolar Disorder, Hx Suicide Attempt, Hx Substance Abuse, Other Psychiatric Issues/Disorders - Cancer History Hx Chemotherapy: No Hx Radiation Therapy: No Hx Palliative Cancer Treatment: No - Surgical History Surgery Procedure, Year, and Place: TUBAL LIGATION in 1988. hole in ear closed. tonsils as a child. RIGHT ULNAR NERVE TRANSPOSITON 05/14 [facility]. ulnar nerve repair Hx Anesthesia Reactions: No - Immunization History Date of Tetanus Vaccine: Unk Date of Influenza Vaccine: fall 2017 Infectious Disease History: No Infectious Disease History: Reports: Hx of Known/Suspected MRSA, Hx Shingles - [id number], History Other Infectious Disease - influenza A Denies: Hx Clostridium Difficile, Hx Hepatitis, Hx Human Immunodeficiency Virus (HIV), Hx Tuberculosis, Traveled Outside the [place] in Last 30 Days - Family History Known Family History: Positive: Cardiac Disease, Hypertension, Diabetes, Respiratory Disease - asthma - Social History Alcohol Use: None Hx Substance Use: No Substance Use Type: Reports: None Hx Tobacco Use: No Smoking Status (MU): Never Smoked Tobacco Have You Smoked in the Last Year: No Review of Systems Negative: Chest Pain Negative: Shortness Of Breath Positive: Abdominal Pain - LUQ soreness and bloating, Diarrhea Positive: Edema - BLE All Other Systems Reviewed And Are Negative: Yes Physical Exam - Summary Physical Exam Summary: Appearance: Mildly ill-appearing, Well-nourished, appears physically older than actual age, lying in bed comfortably Skin: Warm, dry, no obvious rash, No signs of cellulitis Eyes: sclera anicteric, no conjunctival pallor ENT: mucous membranes moist, pharynx appears normal Neck: Supple, nontender Respiratory: Clear to auscultation, no signs of respiratory distress Cardiovascular: Normal S1, S2. No murmurs. Normal distal pulses in tibial and radial bilaterally. Abdomen: Soft, diffuse tenderness without peritoneal sounds, normal active bowel sounds present Musculoskeletal: Strength/ROM Intact, Marked pitting edema in lower abd into the thighs and lower legs Neurological: A&Ox3, awake and alert, mentation is normal, speech is fluent and appropriate Psychiatric: affect is normal, does not appear anxious or depressed Triage Information Reviewed: Yes Vital Signs On Initial Exam: Initial Vitals Temp Pulse Resp BP Pulse Ox 98.6 F 88 16 148/73 91 11/14/18 19:23 11/14/18 19:23 11/14/18 19:23 11/14/18 19:23 11/14/18 19:23 Vital Signs Reviewed: Yes Diagnostics - Vital Signs Vital Signs Temp Pulse Resp BP Pulse Ox 11/14/18 19:23 98.6 F 88 16 148/73 91 - Laboratory Result Diagrams: 11/14/18 19:46 11/14/18 19:46 Lab Statement: Any lab studies that have been ordered have been reviewed, and results considered in the medical decision making process. - CT Abd/Pel CT CT Interpretation Completed By: Radiologist Summary of CT Findings: Findings of the previously seen necrotizing pancreatitis with new large walled off necrosis (WON) causing localized mass effect including right portal vein and common bile duct stenosis. The presence of gas suggests superimposed infection. Recommend percutaneous or transgastric drainage. Modified CT severity index = 10. ED physician has reviewed this report. Re-Evaluation - Re-Evaluation First Eval Re-Evaluation Time: 22:00 Change: Unchanged Comment: I spoke with the patient concerning transfer. She accepts the plan. Abdominal Pain Fem Course/Dx - Course Course Of Treatment: The patient is a 58 y/o with a chief complaint of increased LUQ soreness and bloating with gradual onset for the last week since being [facility] due to [facility]. She has been experiencing increased BLE edema and diarrhea but denies CP and SOB. Upon physical exam, the patient appears to be mildly-ill and looks physically older than her actual age; there is diffuse abd tenderness without peritoneal sounds, marked pitting edema in the lower abd leading into the upper thighs and lower legs; no signs of cellulitis. In the ED course, the patient was administered [place], Dilaudid, Zofran, Piperacillin Sod/Tazobactam Sod, and Visipaque for CT. Blood work reveals elevated WBCs, RDW, plt count, immature gran, band neutrophils, myelocytes, neucleated RBCs/100 WBC, anion gap, BUN, creatinine, glucose, bilirubin, AST, ALT, alkaline phosphatase, CRP and decreased RBCs, Hgb , Hct, sodium, chloride, calcium, albumin. UA reveals ketones, blood, RBCs, squamous epithelial, and bacteria. CT Abd/Pel reveals new large walled off necrosis as a result of pancreatitis with localized mass effect in right portal vein and common bile duct stenosis and suggestion of superimposed infection with gas presence. She is diagnosed with pancreatic abscess. I spoke with Dr. Fajardo at [facility] at 21:45 and at 22:15; the patient is accepted for transfer at this time. She will be transferred to [facility] for further workup. She agrees with this plan and understands the need for transfer at this time. - Diagnoses Provider Diagnoses: Pancreatic abscess - Provider Notifications Discussed Care Of Patient With: Dr. Fajardo - [facility] Time Discussed With Above Provider: 21:45 Instructed by Provider To: Other - I spoke with Dr. Fajardo at 21:45 to talk about patient's symptoms and results this far, and at 22:15 for acceptance of transfer for the patient. Admit/Transition Orders Completed By ED Provider: Yes Reason For Transfer: Specialty or service not available at [facility] Discharge - Sign-Out/Discharge Documenting (check all that apply): Patient Departure - Patient will be transferred to [facility]. Patient Received Moderate/Deep Sedation with Procedure: No - Discharge Plan Condition: Stable Disposition: TRANS HIGHER LVL OF CARE FAC Referrals: Alexandro Roca NP [Primary Care Provider] - - Billing Disposition and Condition Condition: STABLE Disposition: Trans Higher Lvl of Care Fac - Attestation Statements Document Initiated by Scribe: Yes Documenting Scribe: Joselyn Barrera Provider For Whom Jacky is Documenting (Include Credential): Dr. Nolberto Burdick MD Scribe Attestation: Joselyn Davis scribed for Dr. Nolberto Burdick MD on 11/14/18 at 2318. Scribe Documentation Reviewed: Yes Provider Attestation: The documentation as recorded by the Joselyn pettit accurately reflects the service I personally performed and the decisions made by me, Dr. Nolberto Burdick MD Status of Scribe Document: Viewed
[2018-11-14] MEDS ORDERED: Ondansetron INJ* 2 MG/ML VIAL IV ONE (20:03)
[2018-11-14 20:04] LABS: Hematocrit 29 % (33-41); Hemoglobin 9.8 g/dL (12.0-16.0); Mean Corpuscular HGB Conc 33 g/dL (31-36); Mean Corpuscular Hemoglobin 29 pg (27-31); Mean Corpuscular Volume 88 fL (80-97); Mean Platelet Volume 9.9 fL (7.4-10.4); Platelet Count 540 10^3/uL (150-450); Red Blood Count 3.34 10^6 /uL (3.70-4.87); Red Cell Distribution Width 16 % (10.5-15); White Blood Count 32.4 10^3/uL (3.5-10.8)
[2018-11-14] MEDS ORDERED: HYDROmorphone INJ1* 1 MG/ML SYRINGE IV ONE (20:04)
[2018-11-14 20:12] LABS: Albumin 2.8 g/dL (3.2-5.2); Albumin/Globulin Ratio 0.8 (1-3); BUN/Creatinine Ratio 28.1 (8-20); C Reactive Protein 270.15 mg/L (<8.01); Calcium 8.5 mg/dL (8.6-10.3); EGFR African American 72.5 (>60); EGFR Non-African American 59.9 (>60); Globulin 3.7 g/dL (2-4); Potassium 4.7 mmol/L (3.5-5.0); Total Bilirubin 3.2 mg/dL (0.2-1.0); Total Protein 6.5 g/dL (6.4-8.9)
[2018-11-14] MEDS ORDERED: Iodixanol* (CONTRAST) 320 MG/ML 100 ML SDV IV ONE (20:22)
[2018-11-14 20:32] LABS: Immature Granulocytes 15 % (0-9); Lymphocytes % 13 %; Monocytes % 2 %; Myelocytes % 4 % (0-1); Neutrophil % 68 %; Nucleated Red Blood Cells/100 1 (0-0)
[2018-11-14 20:33] LABS: Platelet Morphology Large; Polychromasia 2+
[2018-11-14] MEDS ORDERED: Piperacillin/Tazobac ADVAN(*) 3.375 GM in NS 0.9% 100 ML* 100 ML IVPB ONE (21:39)
[2018-11-14 21:48] LABS: Urine Appearance Cloudy; Urine Bacteria 1+ (Absent); Urine Bilirubin Negative (Negative); Urine Blood 3+ (Negative); Urine Color Amber; Urine Glucose Negative (Negative); Urine Ketones 1+ (Negative); Urine Nitrite Negative (Negative); Urine Protein Negative (Negative); Urine Red Blood Cell 2+(6-10/hpf) (Absent); Urine Specific Gravity 1.032 (1.010-1.030); Urine Squamous Epithelial Cell Present (Absent); Urine Urobilinogen Negative (Negative); Urine White Blood Cell Trace(0-5/hpf) (Absent)
[2018-11-14] MEDS ORDERED: HYDROmorphone INJ1* 1 MG/ML SYRINGE IV SLOW PU ONE (23:47)
[2018-11-15] MEDS ORDERED: HYDROmorphone INJ1* 1 MG/ML SYRINGE IV ONE (04:21)
[2018-11-15 05:13] VITALS: BP 112/68
== END 2018-11-15 05:00 | disposition short-term general hospital (02) ==
LOC: ED 19:11
DX: K85.90 Acute pancreatitis without necrosis or infection, unspecified (principal); E11.9 Type 2 diabetes mellitus without complications; E78.00 Pure hypercholesterolemia, unspecified; I10 Essential (primary) hypertension; I95.9 Hypotension, unspecified; Z88.5 Allergy status to narcotic agent
CPT/HCPCS: 36415; 74177; 80053; 81003; 81015; 83605; 83690; 85025; 85060; 86140; 87086; 96361; 96374; 96375; 96376; 99284; J1170; J2405; J2543; Q9967

== ENCOUNTER 2018-11-27 21:15 | Emergency (ER) | payer MEDICARE, MEDICAID ==
[2018-11-27] MEDS ORDERED: Ondansetron INJ* 2 MG/ML VIAL IV ONE (21:31)
[2018-11-27] MEDS ORDERED: Morphine 4 MG/ML VIAL (1 ml) 4 MG/ML VIAL IV ONE (21:31)
--- NOTE | 2018-11-27 21:35 | ED ---
Abdominal Pain/Female - HPI Summary HPI Summary: This patient is a 58 year old F brought in by to [facility] with a chief complaint of increased abdominal pain since today. She was discharged from [facility] on 11/24/18 after getting pancreatic drains placed. The patient rates the pain 8/10 in severity. Patient reports abdominal distention, nausea in room , and vomiting in room. 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 He says that she ran out of their supply of flushes for her tubes today. Her tubes are functional currently , but she reports having a hard time earlier today. She says that her doctors believe her pancreatitis was caused by one of the medications she was given. 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., Vomiting, Other: - Abdominal distention Allergies/Adverse Reactions: Allergies Allergy/AdvReac Type Severity Reaction Status Date / Time Adhesive Tape Allergy Mild Rash Verified 11/15/18 00:57 amoxicillin [From Augmentin] Allergy Rash Verified 09/20/18 09:44 azithromycin Allergy Rash And Verified 09/20/18 09:44 Itching clavulanic acid Allergy Rash Verified 09/20/18 09:44 [From Augmentin] moxifloxacin [From Avelox] Allergy Rash Verified 09/20/18 09:44 tapentadol [From Nucynta] Allergy Rash Verified 09/20/18 09:44 tolmetin [From Tolectin] Allergy Rash Verified 09/20/18 09:44 valdecoxib [From Bextra] Allergy Rash Verified 09/20/18 09:44 morphine AdvReac Difficulty Verified 10/23/18 11:19 Breathing PERFUMES Allergy Severe DYSPNEA Uncoded 09/20/18 09:44 Home Medications: Home Medications Advair Diskus 500-50* 1 inh PO BID 11/27/18 [History Confirmed 11/27/18] Albuterol HFA INHALER* [Ventolin HFA Inhaler*] 2 puff INH DAILY PRN 11/27/18 [ History Confirmed 11/27/18] Furosemide 40 mg PO DAILY PRN 11/27/18 [History Confirmed 11/27/18] Gabapentin [Neurontin] 1 cap PO TID 11/27/18 [History Confirmed 11/27/18] Hydrocodone/Acetamin 10/325(NF [[place] 10/325 (NF)] 1 tab PO Q4HR PRN 11/27/18 [ History Confirmed 11/27/18] Loratadine 10 mg PO DAILY 11/27/18 [History Confirmed 11/27/18] Metoprolol Tartrate TAB* [Lopressor TAB*] 1 tab PO BID 11/27/18 [History Confirmed 11/27/18] Oxycodone HCl 1 tab PO Q6HR PRN 11/27/18 [History Confirmed 11/27/18] Prochlorperazine 10 mg PO Q6HR PRN 11/27/18 [History Confirmed 11/27/18] PMH/Surg Hx/FS Hx/Imm Hx Endocrine/Hematology History: Reports: Hx Diabetes - no meds Denies: Hx Anticoagulant Therapy, Hx Blood Disorders, Hx Blood Transfusions, Hx Bone Marrow Disease, Hx Systemic Lupus Erythematosus, Hx Sickle Cell Disease , Hx Thyroid Disease, Hx Anemia, Hx Unexplained Bleeding Cardiovascular History: Reports: Hx Hypercholesterolemia, Hx Hypotension, Hx Hypertension, Other Cardiovascular Problems/Disorders - DIABETIC Denies: Hx Aneurysm, Hx Angina, Hx Angioplasty, Hx Auto Implanted Cardiovert Defib, Hx Cardiac Arrest, Hx Cardiomegaly, Hx Congenital Heart Disease, Hx Congestive Heart Failure, Hx Coronary Artery Disease, Hx Deep Vein Thrombosis, Hx Pacemaker/ICD, Hx Peripheral Vascular Disease, Hx Rheumatic Fever, Hx Syncope , Hx Valvular Heart Disease Respiratory History: Reports: Hx Asthma - USES INHALERS, Hx Chronic Bronchitis, Hx Chronic Obstructive Pulmonary Disease (COPD), Hx Pneumonia, Hx Seasonal Allergies, Other Respiratory Problems/Disorders Denies: Hx Cystic Fibrosis, Hx Lung Cancer, Hx Pleural Effusion, Hx Pulmonary Edema, Hx Pulmonary Embolism, Hx Sleep Apnea GI History: Reports: Hx Diverticulosis, Hx Gastroesophageal Reflux Disease - ON MEDICATION FOR STATES CONTROLLED, Other GI Disorders - CHRONIC CONSTIPATION Denies: Hx Ulcer History: Denies: Hx Acute Renal Failure, Hx Benign Prostatic Hyperplasia, Hx Chronic Renal Failure, Hx Dialysis, Hx Kidney Infection, Hx Kidney Stones, Hx Renal Disease, Other Problems/Disorders Musculoskeletal History: Reports: Hx Arthritis, Hx Back Problems, Hx Bursitis, Hx Osteoporosis, Hx Scoliosis, Hx Tendonitis, Other Musculoskeletal History - DEGENERATIVE DISC DISEASE Denies: Hx Rheumatoid Arthritis, Hx Congenital Bone Abnormalities, Hx Fibromyalgia, Hx Gout, Hx Orthopedic Injury Sensory History: Reports: Hx Contacts or Glasses - GLASSES, Hx Hearing Problem Denies: Hx Cataracts, Hx Eye Injury, Hx Eye Prosthesis, Hx Glaucoma, Hx Macular Degeneration, Hx Vision Problem, Hx Deafness, Hx Hearing Aid, Other Sensory Impairments Opthamlomology History: Reports: Hx Contacts or Glasses - GLASSES Denies: Hx Cataracts, Hx Eye Injury, Hx Eye Prosthesis, Hx Glaucoma, Hx Macular Degeneration, Hx Vision Problem, Other Sensory Impairments Neurological History: Reports: Hx Headaches - reportedly d/t degenerative disc disease Denies: Hx Dementia Psychiatric History: Denies: Hx Anxiety, Hx Attention Deficit Hyperactivity Disorder, Hx Eating Disorder, Hx Depression, Hx Panic Disorder, Hx Post Traumatic Stress Disorder, Hx Inpatient Treatment, Hx Community Mental Health Tx, Hx Schizophrenia, Hx Bipolar Disorder, Hx Suicide Attempt, Hx Substance Abuse, Other Psychiatric Issues/Disorders - Cancer History Hx Chemotherapy: No Hx Radiation Therapy: No Hx Palliative Cancer Treatment: No - Surgical History Surgery Procedure, Year, and Place: TUBAL LIGATION in 1988. hole in ear closed. tonsils as a child. RIGHT ULNAR NERVE TRANSPOSITON 05/14 [facility]. ulnar nerve repair Hx Anesthesia Reactions: No - Immunization History Date of Tetanus Vaccine: Unk Date of Influenza Vaccine: fall 2017 Infectious Disease History: No Infectious Disease History: Reports: Hx of Known/Suspected MRSA, Hx Shingles - [id number], History Other Infectious Disease - influenza A Denies: Hx Clostridium Difficile, Hx Hepatitis, Hx Human Immunodeficiency Virus (HIV), Hx Tuberculosis, Traveled Outside the [place] in Last 30 Days - Family History Known Family History: Positive: Cardiac Disease, Hypertension, Diabetes, Respiratory Disease - asthma - Social History Alcohol Use: None Hx Substance Use: No Substance Use Type: Reports: None Hx Tobacco Use: No Smoking Status (MU): Never Smoked Tobacco Have You Smoked in the Last Year: No Review of Systems Negative: Fever Positive: Abdominal Pain, Vomiting - in room, Nausea - Nausea in room but 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 Abdomen: No tympany. Distention of the abdomen. Two drains in the mid-abdomen that drain to NOEMÍ and drains the flush easily. They drain a yellowish fluid. Bowel Sounds: present Musculoskeletal: normal, strength/ROM intact, 3+ bilateral LE pitting edema Neuro: normal, sensory motor intact, A&Ox3 Triage Information Reviewed: Yes Vital Signs On Initial Exam: Initial Vitals Temp Pulse Resp BP Pulse Ox 99.4 F 120 16 119/88 95 11/27/18 21:21 11/27/18 21:21 11/27/18 21:21 11/27/18 21:21 11/27/18 21:21 Vital Signs Reviewed: Yes Diagnostics - Vital Signs Vital Signs Temp Pulse Resp BP Pulse Ox 11/27/18 21:21 99.4 F 120 16 119/88 95 - Laboratory Result Diagrams: 11/27/18 21:57 11/27/18 21:57 Lab Statement: Any lab studies that have been ordered have been reviewed, and results considered in the medical decision making process. - Radiology Chest X-Ray Radiology Interpretation Completed By: ED Physician Summary of Radiographic Findings: 00:00. Free air under the left hemidiaphragm. No acute infiltrate. Pending official report. - CT Abdomen/Pelvis CT CT Interpretation Completed By: Radiologist Summary of CT Findings: 23:28. 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 indwelling percutaneous drain which extends through the stomach causing. pneumoperitoneum. The main fluid collection and the right paracolic gutter. fluid collection are smaller after drain placement. Modified CT severity index. score = 10. ED Physician has reviewed this imaging report. Abdominal Pain Fem Course/Dx - Course Course Of Treatment: Patient presents with fever, tachycardia and acute vomiting. She has known history of infected pancreatic necrosis with placement of 2 NOEMÍ drains into her abdomen recently. These were flushed and flushed easily at the bedside. They seem to drain small amounts and are not clogged. CT scan shows transgastric placement of the tubes which is not unusual apparently but there is a good amount of free air in the abdomen. The patient has minimal tenderness in the upper abdomen and is certainly not peritoneal at this time. I spoke with the surgeon here who suggest that they do nothing with the pancreas and would like to transfer the patient back to where she was treated at [facility]. I spoke with the surgeon there who accepted her in transfer. She has received cefepime and Flagyl for presumed infection/ sepsis. Fluids were limited to 1 L given her apparent fluid overload with heavy edema in her legs. - Diagnoses Differential Diagnosis: Positive: Pneumonia, Urinary Tract Infection, Other - Peritonitis, sepsis, perforated viscus Provider Diagnoses: Acute pancreatitis with infected necrosis, Sepsis - Provider Notifications Discussed Care Of Patient With: Damaso Peralta - Surgery Time Discussed With Above Provider: 23:37 Instructed by Provider To: Transfer - to [facility] - Critical Care Time Critical Care Time: 30-74 min - CCT is EXCLUSIVE of separately billable procedures Discharge - Sign-Out/Discharge Documenting (check all that apply): Patient Departure - Transfer Patient Received Moderate/Deep Sedation with Procedure: No - Discharge Plan Condition: Guarded Disposition: TRANS HIGHER LVL OF CARE FAC Referrals: Alexandro Roca MANAGER PROCESS [Primary Care Provider] - - Billing Disposition and Condition Condition: GUARDED Disposition: Trans Higher Lvl of Care Fac - Attestation Statements Document Initiated by Scribe: Yes Documenting Scribe: Raza Matute Provider For Whom Scribe is Documenting (Include Credential): Curyr Brewster MD Scribe Attestation: Raza Davis, scribed for Curry Brewster MD on 11/28/18 at 0106. Scribe Documentation Reviewed: Yes Provider Attestation: The documentation as recorded by the Raza pettit accurately reflects the service I personally performed and the decisions made by me, Curry Brewster MD Status of Scribe Document: Viewed Consult Consult: 00:10 - Spoke to transfer center. They will accept once they have an open bed, which they predict to be in half an hour.
[2018-11-27 22:20] LABS: ABS Lymphocytes 0.8 10^3/ul (1.0-4.8); ABS Monocytes 1.3 10^3/ul (0-0.8); ABS Neutrophils 11.5 10^3/ul (1.5-7.7); Hematocrit 29 % (35-47); Hemoglobin 9.7 g/dL (12.0-16.0); Lymphocyte % 5.6 %; Mean Corpuscular HGB Conc 33 g/dL (31-36); Mean Corpuscular Hemoglobin 30 pg (27-31); Mean Corpuscular Volume 91 fL (80-97); Platelet Count 436 10^3/uL (150-450); Red Blood Count 3.23 10^6 /uL (3.70-4.87); Red Cell Distribution Width 18 % (10.5-15); White Blood Count 13.6 10^3/uL (3.5-10.8)
[2018-11-27 22:25] LABS: INR 1.45 (0.82-1.09)
[2018-11-27 22:32] LABS: Albumin 2.4 g/dL (3.2-5.2); Albumin/Globulin Ratio 0.7 (1-3); BUN/Creatinine Ratio 21.4 (8-20); C Reactive Protein 354.25 mg/L (<8.01); Calcium 7.9 mg/dL (8.6-10.3); EGFR African American 104.4 (>60); EGFR Non-African American 86.2 (>60); Globulin 3.5 g/dL (2-4); Potassium 3.9 mmol/L (3.5-5.0); Total Bilirubin 1.1 mg/dL (0.2-1.0); Total Protein 5.9 g/dL (6.4-8.9)
[2018-11-27] MEDS ORDERED: metroNIDAZOLE IV 500 MG/100ML* 500 MG/100 ML BAG IVPB ONE (22:57)
[2018-11-27] MEDS ORDERED: Cefepime 2 GM in Dextrose(*) 2 GM/50 ML BAG IV ONE (22:57)
[2018-11-28] MEDS ORDERED: NS 0.9% 1000 ML** 1,000 ML IV ONE (01:08)
[2018-11-28 01:19] VITALS: BP 120/77
== END 2018-11-28 01:19 | disposition short-term general hospital (02) ==
LOC: ED 21:15
DX: K85.92 Acute pancreatitis with infected necrosis, unspecified (principal); A41.9 Sepsis, unspecified organism; J90 Pleural effusion, not elsewhere classified; J98.11 Atelectasis; I10 Essential (primary) hypertension; E11.9 Type 2 diabetes mellitus without complications; E78.00 Pure hypercholesterolemia, unspecified; J45.909 Unspecified asthma, uncomplicated; K21.9 Gastro-esophageal reflux disease without esophagitis; Z88.3 Allergy status to other anti-infective agents; Z88.8 Allergy status to other drugs, medicaments and biological substances; Z88.5 Allergy status to narcotic agent; Z79.899 Other long term (current) drug therapy; Z79.51 Long term (current) use of inhaled steroids
CPT/HCPCS: 36415; 71045; 74176; 80053; 83605; 83690; 85025; 85610; 86140; 87040; 96365; 96375; 99285; J0692; J2270; J2405; J3490

== ENCOUNTER 2019-05-26 18:53 | Emergency (ER) | payer MEDICARE, MEDICAID ==
--- OUTSIDE RECORDS SUMMARY | 2019-05-26 19:00 | XMS REPORT | Continuity of Care Document ---
:1960 External Reference #:[id number] Author Name Alexandro Roca NP (transmitted by agent of provider Yani Schmitz) Address [address] [facility], [address] [place] [id number] Care Team Providers Name Role Phone Nithya Blanco FNP - Nurse Care Team Information Digital Design Engineer [phone] Practitioner Robert Ortega MD - Hospitalist Care Team Information Digital Design Engineer [phone] Nancie Egan MD - Internal Care Team Information Digital Design Engineer Medicine Problems Active Problems Provider Date Asthma without status asthmaticus Temi Najera MD Onset: 01/15/2017 Allergic rhinitis Temi Najera MD Onset: 01/15/2017 Gastroesophageal reflux disease Temi Najera MD Onset: 01/15/2017 Other sleep disorders Temi Najera MD Onset: 01/15/2017 Lesion of ulnar nerve Андрей Hadley MD Onset: 09/04/2017 Syncope and collapse Robert Ortega MD Onset: 05/09/2018 Chronic obstructive lung disease Robert Ortega MD Onset: 05/09/2018 Hyperlipidemia Robert Ortega MD Onset: 05/09/2018 Essential hypertension Robert Ortega MD Onset: 05/09/2018 Type 2 diabetes mellitus Robert Ortega MD Onset: 06/09/2018 Pancreatitis Emiliano Quintana MD Onset: 12/05/2011 Note: single event (as of 08/28/18) and idiopathic; gallbladder US normal and LFTs normal; no alcohol intake; pt says her medicines were presumed cause; no discharge summary in the [facility] database Social History Type Date Description Comments Sex Unknown Tobacco Use Start: Unknown Never Smoked Cigarettes Smoking Status Reviewed: 01/21/19 Never Smoked Cigarettes ETOH Use Denies alcohol use Tobacco Use Start: Unknown Patient has never smoked Recreational Drug Use Denies Drug Use Exercise Type/Frequency Does not exercise Allergies, Adverse Reactions, Alerts Active Allergies Reaction Severity Comments Date Augmentin 05/06/2014 Avelox 05/06/2014 Dilaudid 05/06/2014 Morphine 05/06/2014 Nucynta 05/06/2014 Bextra 05/09/2018 Azithromycin Mild rash 05/09/2018 Adhesive rash 05/09/2018 Tolmetin Severe 05/09/2018 Medications Active Medications SIG Qnty Indications Ordering Date Provider Depend Underwear Change three times 90units R32 Alexandro Roca NP 04/21/2019 Small/Medium Extra daily as needed Absorbency Female [facility] [place] [facility] Ibuprofen take one tablet by 60tabs Alexandro Roca NP 01/27/2019 600mg Tablets mouth three times a day as needed with food Montelukast Sodium take 1 tablet by 90tabs Alexandro Roca NP 09/29/2018 10mg mouth once daily Tablets Glucose Meter Test for use 1-3 times 90units Alexandro Roca NP 09/01/2018 Strips Advanced daily Strips Lisinopril take 1 tablet by 90tabs I10 Alexandro Roac NP 07/31/2018 10mg Tablets mouth once daily Donut Pillow For use when 1units M53.3 Alexandro Roca NP 07/31/2018 sitting Cardizem CD 2 by mouth every 180caps I10 Tracie S. 07/08/2018 120mg Caps ER day Foster, N.P. 24HR Blood Pressure Monitor check bp three 1units I10 Alexandro Roca NP 07/01/2018 Auto Inflate times weekly at [facility] home Blood Pressure Kit check twice a day 1units R55 Robert Ortega MD 06/09/2018 Kit for hypertension and record in a log book Freestyle Lite Blood for blood glucose 1units E11.9 Robert Ortega MD 2017 Glucose Monitoring monitoring once System daily for diabetes Device mellitus Pulmicort Flexhaler inhale one puff by 3units J45.909 Temi 04/09/2018 mouth twice a day MD Reinaldo 90mcg/Act Aerosol Ra Vitamin B-12 TR take 1 tablet by 90tabs Alexandro Roca NP 1000mcg mouth once daily Tablets ER Prochlorperazine take 1 tablet by 30[facility] Maleate mouth every 6 10mg Tablets hours if needed for nausea or vomiting Metoprolol Tartrate take 1 tablet by 180tabs [facility] LV[facility] 25mg mouth twice a day Tablets Furosemide take 1 tablet by 90tabs [facility] 40mg Tablets mouth as directed for 3 days then if needed for ... (refer to prescription notes). Amlodipine Besylate take 1 tablet by 90tabs [facility] 5mg mouth once daily Tablets Bevespi Aerosphere 2 puffs inhalation Unknown twice daily. 9-4.8mcg/Act Aerosol Isosorbide Mononitrate 1 by mouth every 90tabs [facility] ER day 60mg Tablets ER 24HR Fenofibrate 1 by mouth every 90tabs [facility] 160mg Tablets day Pantoprazole Sodium take 1 tablet by 90tabs [facility] 40mg mouth once daily Tablets DR Ventolin HFA 2 puffs by mouth 1units [facility] 108(90Base) four times a day mcg/Act Aerosol as needed Ipratropium 1 vial in 90ml [facility]/Albuterol nebulizer three Sulfate times a day as 0.5-2.5(3)mg/3ML needed for asthma Solution Epipen 2-Gulshan use as directed 1units Unknown 0.3mg/0.3ML Solution Auto-Inject Albuterol Sulfate 1 vial via 75ml J44.9 [facility] nebulizer 4 times (2.5mg/3ML) 0.083% daily as needed Nebulizer Medications Administered in Office Medication SIG Qnty Indications Ordering Provider Date Inj, Regadenoson, 0.1 MG Jason Newell, DO [facility] 05/27/2018 Injection Technetium TC 99M Jason Newell, DO [facility] 05/27/2018 Tetrofosmin, Per Unit Dose Up To 40 Millicuries Injection Depomedrol 80MG Marcelo Gamboa M.D. 05/06/2014 Injection Immunizations CPT Code Status Date Vaccine Lot # [id number] Given 07/01/2018 Influenza Virus Vaccine, Quadrivalent, Split, [id number] Preservative Free [id number] Given 05/07/2016 Influenza Virus 3Yrs & Over Vital Signs Date Vital Result Comment 04/21/2019 11:52am Height 61 inches 5'1" Weight 138.12 lb Heart Rate 81 /min BP Systolic 126 mmHg BP Diastolic 75 mmHg Body Temperature 97.3 F O2 % BldC Oximetry 97 % BMI (Body Mass Index) 26.1 kg/m2 01/21/2019 11:13am Height 61 inches 5'1" Weight 145.38 lb Heart Rate 104 /min BP Systolic 144 mmHg BP Diastolic 82 mmHg Body Temperature 98.4 F O2 % BldC Oximetry 97 % BMI (Body Mass Index) 27.5 kg/m2 Results Test Date Facility Test Result H/L Range Note Laboratory test 11/27/2018 [facility] Blood Culture SEE RESULT [address] [place] [address] [phone] CBC Auto Diff 11/27/2018 [facility] White Blood 13.6 10^3/uL High 3.5-10.[address] [place] [address] [phone] Red Blood Count 3.23 10^6/uL Low 3.70-4.87 Hemoglobin 9.7 g/dL Low 12.0-16.0 Hematocrit 29 % Low 35-47 Mean Corpuscular Volume 91 fL Normal 80-97 Mean Corpuscular Hemoglobin 30 pg Normal 27-31 Mean Corpuscular HGB Conc 33 g/dL Normal 31-36 Red Cell Distribution Width 18 % High 10.5-15 Platelet Count 436 10^3/uL Normal 150-450 Mean Platelet Volume 9.0 fL Normal 7.4-10.4 Abs Neutrophils 11.5 10^3/uL High 1.5-7.7 Abs Lymphocytes 0.8 10^3/uL Low 1.0-4.8 Abs Monocytes 1.3 10^3/uL High 0-0.8 Abs Eosinophils 0.0 10^3/uL Normal 0-0.6 Abs Basophils 0.0 10^3/uL Normal 0-0.2 Abs Nucleated RBC 0.0 10^3/uL Granulocyte % 84.8 % Lymphocyte % 5.6 % Monocyte % 9.5 % Eosinophil % 0.0 % Basophil % 0.1 % Nucleated Red Blood Cells % 0.0 Inr/Protime 11/27/2018 [facility] Inr 1.45 High 0.82-1.[address] [place] [address] [phone] Comp Metabolic 11/27/2018 [facility] Sodium 134 mmol/L Low 135 -[address] [place], [place] [id number] [phone] Potassium 3.9 mmol/L Normal 3.5-5.0 Chloride 100 mmol/L Low 101-111 Co2 Carbon Dioxide 26 mmol/L Normal 22-32 Anion Gap 8 mmol/L Normal 2-11 Glucose 148 mg/dL High 70-100 Blood Urea Nitrogen 15 mg/dL Normal 6-24 Creatinine 0.70 mg/dL Normal 0.51-0.95 BUN/Creatinine Ratio 21.4 High 8-20 Calcium 7.9 mg/dL Low 8.6-10.3 Total Protein 5.9 g/dL Low 6.4-8.9 Albumin 2.4 g/dL Low 3.2-5.2 Globulin 3.5 g/dL Normal 2-4 Albumin/Globulin Ratio 0.7 Low 1-3 Total Bilirubin 1.10 mg/dL High 0.2-1.0 Alkaline Phosphatase 94 U/L Normal 34-104 Alt 13 U/L Normal 7-52 Ast 15 U/L Normal 13-39 Egfr Non- 86.2 >60 Egfr 104.4 >60 3 Laboratory test 11/27/2018 [facility] Lipase 30 U/L Normal 11.0-82.[address] [place] [address] [phone] C Reactive Protein 354.25 mg/L High <8.01 Lactic Acid 1.2 mmol/L Normal 0.5-2.0 4 Laboratory test 11/14/2018 [facility] Pathologist (SEE NOTE) [address] [place] [address] [phone] Urine Culture And 11/14/2018 [facility] Urine Culture SEE RESULT [address] [place] [address] [phone] Urinalysis Profile 11/14/2018 [facility] Urine Color [address] [place] [address] [phone] Urine Appearance Cloudy Urine Specific Rentz 1.032 High 1.010-1.030 Urine pH 5.0 Normal 5-9 Urine Urobilinogen Negative Negative Urine Ketones 1+ Abnormal Negative Urine Protein Negative Negative Urine Leukocytes Negative Negative Urine Blood 3+ Abnormal Negative Urine Nitrite Negative Negative Urine Bilirubin Negative Negative Urine Glucose Negative Negative Urine White Blood Cell Trace(0-5/hpf) Absent Urine Red Blood Cell 2+(6-10/hpf) Abnormal Absent Urine Bacteria 1+ Abnormal Absent Urine Squamous Epithelial Cell Present Abnormal Absent Manual Differential 11/14/2018 [facility] Immature 15 % High 0 -[address] [place] [address] [phone] Platelet Morphology Large Neutrophil % 68 % Band % 11 % High 0-8 Lymphocytes % 13 % Monocytes % 2 % Eosinophils % 1 % Basophil % 1 % Myelocytes % 4 % High 0-1 Nucleated Red Blood Cells/100 1 High 0-0 Hypochromasia 1+ Polychromasia 2+ Anisocytosis 1+ Target Cells 1+ Stomatocytes 1+ CBC Auto 11/14/2018 [facility] White Blood 32.4 10^3/uL High 3.5-10.[address] [place] [address] [phone] Red Blood Count 3.34 10^6/uL Low 3.70-4.87 Hemoglobin 9.8 g/dL Low 12.0-16.0 Hematocrit 29 % Low 33-41 Mean Corpuscular Volume 88 fL Normal 80-97 Mean Corpuscular Hemoglobin 29 pg Normal 27-31 Mean Corpuscular HGB Conc 33 g/dL Normal 31-36 Red Cell Distribution Width 16 % High 10.5-15 Platelet Count 540 10^3/uL High 150-450 Mean Platelet Volume 9.9 fL Normal 7.4-10.4 Laboratory test 11/14/2018 [facility] Lipase 55 U/L Normal 11.0-82.[address] [place] [address] [phone] C Reactive Protein 270.15 mg/L High <8.01 Lactic Acid 1.3 mmol/L Normal 0.5-2.0 8 Comp Metabolic Panel 11/14/2018 [facility] Sodium 131 mmol/L Low 135-145 [address] [place] [address] [phone] Potassium 4.7 mmol/L Normal 3.5-5.0 Chloride 88 mmol/L Low 101-111 Co2 Carbon Dioxide 25 mmol/L Normal 22-32 Anion Gap 18 mmol/L High 2-11 Glucose 146 mg/dL High 70-100 Blood Urea Nitrogen 27 mg/dL High 6-24 Creatinine 0.96 mg/dL High 0.51-0.95 BUN/Creatinine Ratio 28.1 High 8-20 Calcium 8.5 mg/dL Low 8.6-10.3 Total Protein 6.5 g/dL Normal 6.4-8.9 Albumin 2.8 g/dL Low 3.2-5.2 Globulin 3.7 g/dL Normal 2-4 Albumin/Globulin Ratio 0.8 Low 1-3 Total Bilirubin 3.20 mg/dL High 0.2-1.0 Alkaline Phosphatase 343 U/L High 34-104 Alt 96 U/L High 7-52 Ast 148 U/L High 13-39 Egfr Non- 59.9 >60 Egfr 72.5 >60 9 Comp Metabolic 10/20/2018 [facility] Sodium 139 mmol/L Normal 135-[address] [place] [address] [phone] Potassium 3.9 mmol/L Normal 3.5-5.0 Chloride 105 mmol/L Normal 101-111 Co2 Carbon Dioxide 24 mmol/L Normal 22-32 Anion Gap 10 mmol/L Normal 2-11 Glucose 232 mg/dL High 70-100 Blood Urea Nitrogen 18 mg/dL Normal 6-24 Creatinine 1.38 mg/dL High 0.51-0.95 BUN/Creatinine Ratio 13.0 Normal 8-20 Calcium 9.2 mg/dL Normal 8.6-10.3 Total Protein 6.7 g/dL Normal 6.4-8.9 Albumin 4.4 g/dL Normal 3.2-5.2 Globulin 2.3 g/dL Normal 2-4 Albumin/Globulin Ratio 1.9 Normal 1-3 Total Bilirubin 0.80 mg/dL Normal 0.2-1.0 Alkaline Phosphatase 52 U/L Normal 34-104 Alt 23 U/L Normal 7-52 Ast 23 U/L Normal 13-39 Egfr Non- 39.4 >60 Egfr 47.7 >60 10 Laboratory test 10/20/2018 [facility] Phosphorus 3.7 mg/dL Normal 2.5-5.[address] [place] [address] [phone] Magnesium 2.0 mg/dL Normal 1.9-2.7 CBC Auto 10/20/2018 [facility] White Blood 27.7 10^3/uL High 3.5-10.[address] [place] [address] [phone] Red Blood Count 4.90 10^6/uL High 3.70-4.87 Hemoglobin 14.5 g/dL Normal 12.0-16.0 Hematocrit 44 % High 33-41 Mean Corpuscular Volume 91 fL Normal 80-97 Mean Corpuscular Hemoglobin 30 pg Normal 27-31 Mean Corpuscular HGB Conc 33 g/dL Normal 31-36 Red Cell Distribution Width 15 % Normal 10.5-15 Platelet Count 244 10^3/uL Normal 150-450 Mean Platelet Volume 10.8 fL High 7.4-10.4 Manual Differential 10/20/2018 [facility] Immature 4 % Normal 0-9 [address] [facility] [place] [address] [phone] Neutrophil % 75 % Band % 4 % Normal 0-8 Lymphocytes % 11 % Monocytes % 8 % Eosinophils % 2 % Abs Neutrophils 21.9 10^3/uL High 1.5-7.7 Abs Lymphocytes 3.1 10^3/uL Normal 1.0-4.8 Abs Monocytes 2.2 10^3/uL High 0-0.8 Abs Eosinophils 0.5 10^3/uL Normal 0-0.6 RBC Morphology Normal Normal Urinalysis Profile 10/20/2018 [facility] Urine Color Yellow [address] [place] [address] [phone] Urine Appearance Clear Urine Specific Rentz > 1.060 High 1.010-1.030 Urine pH 5.0 Normal 5-9 Urine Urobilinogen Negative Negative Urine Ketones Negative Negative Urine Protein Negative Negative Urine Leukocytes 2+ Abnormal Negative Urine Blood Negative Negative Urine Nitrite Negative Negative Urine Bilirubin Negative Negative Urine Glucose Negative Negative Urine White Blood Cell 1+(6-10/hpf) Abnormal Absent Urine Red Blood Cell Absent Absent Urine Bacteria Absent Absent Urine Squamous Epithelial Cell Present Abnormal Absent Urine Culture And 10/20/2018 [facility] Urine Culture SEE RESULT [address] [place] [address] [phone] Lyme Disease PCR 10/20/2018 [facility] B burgdorferi Negative Negative [address] PCR, [place] [address] [phone] B mayonii PCR Negative Negative B garinii/B afzelii PCR Negative Negative Lyme Disease PCR Comment See Comment 12 Laboratory test 10/20/2018 [facility] Lactic Acid 1.5 mmol/L Normal 0.5-2.0 [address] [place] [address] [phone] Troponin-I (TnI) 0.00 ng/mL <0.04 14 C Reactive Protein 4.44 mg/L Normal <8.01 Amylase 2282 U/L High 29-103 Lipase 7470 U/L High 11.0-82.0 1 SEE RESULT BELOW Name: MARIE ZHOU Ryan : [address]: Curry Brewster MD Acct: [id number] Unit: [id number] AGE: 58 Location: ED Re11/27/18 SEX: F Status: REG ER SPEC: [id number] JOSEPHINE: 11/27/18-[address]: Curry Brewster MD REQ: [id number] RECD: 11/27/18 STATUS: SCOTT COLEMAN DR: Alexandro Roca RN LVN _ SOURCE: BLOOD,VENO [facility]: ORDERED: Blood Cult Procedure Result Reported Site Aerobic Culture Bottle Final 12/02/18- 2 ML No Growth Day 5 Anaerobic Culture Bottle Final 12/02/18- 0 ML No Growth Day 5 * ML - Main Lab . END OF REPORT DEPARTMENT OF PATHOLOGY, [address] [place] [address] Lj Bravo M.D. Director [facility] # [id number] 2 Standard intensity warfarin therapeutic range: 2.0-3.0 High intensity warfarin therapeutic range: 2.5-3.5 3 Because ethnic data is not always [...] 5 Kidney failure <15 (or dialysis) 4 [place] Severe Sepsis and Septic Shock Management Bundle Measure requires all lactic acids initially measuring >2.0 mmol/L be repeated. 5 Absolute neutrophilia with left-shifted granulocytes and thrombocytosis. Reviewed by Sally Vale MD 6 SEE RESULT BELOW Name: MARIE ZHOU I : [address]: Nolberto Burdick MD Acct: [id number] Unit: [id number] AGE: 58 Location: ED Re11/14/18 SEX: F Status: DEP ER SPEC: [id number] JOSEPHINE: 11/14/[address] [facility] [address]: Nolberto Burdick MD REQ: [id number] RECD: 11/14/18 STATUS: SCOTT KIM DR: Alexandro Roca RN LVN _ SOURCE: URINE [facility]: ORDERED: Urine Culture Procedure Result Reported Site Urine Culture Final 11/15/18- 1605 ML Few Enterobacteriacae; possible contamination. * ML - Main Lab . END OF REPORT DEPARTMENT OF PATHOLOGY, [address] [place] [address] Lj Bravo M.D. Director [facility] # [id number] 7 CORRECTED REPORT --- Corrected on 11/14/182031 --- Immature Granul previously reported as: 11 H % 8 [facility] Severe Sepsis and Septic Shock Management Bundle Measure requires all lactic acids initially measuring >2.0 mmol/L be repeated. 9 Because ethnic data is not always [...] 5 Kidney failure <15 (or dialysis) 10 Because ethnic data is not always [...] 15-29 5 Kidney failure <15 (or dialysis) 11 SEE RESULT BELOW Name: ZHOU,MARIE Davis : [address]: Indio Dang MD Acct: [id number] Unit: [id number] AGE: 58 Location: [address] Re10/20/18 SEX: F Status: ADM IN SPEC: [id number] JOSEPHINE: 10/20/[address]: Curry Brewster MD REQ: [id number] RECD: 10/20/18 STATUS: SCOTT COLEMAN DR: Alexandro Roca RN LVN _ SOURCE: URINE [facility]: ORDERED: Urine Culture Procedure Result Reported Site Urine Culture Final 10/21/18- 1604 ML No Growth (<1,000 CFU/mL) * ML - Main Lab . END OF REPORT DEPARTMENT OF PATHOLOGY, [address] [place] [address] Lj Bravo M.D. Director [facility] # [id number] 12 A negative result does not exclude infection with Borrelia burgdorferi. Serologic testing as per CDC guidelines may be indicated. ADDITIONAL INFORMATION This test was developed and its performance characteristics determined by [facility] in a manner consistent with CLIA requirements. This test has not been cleared or approved by the U.S. Food and Drug Administration. Test Performed by: [facility] - [address] [address] [address] [facility] Severe Sepsis and Septic Shock Management Bundle Measure requires all lactic acids initially measuring >2.0 mmol/L be repeated. 14 Troponin-I testing on Plasma Separator Tubes (PST) has a known false positive rate of 0.20-0.40%. All positive troponins reflex immediate secondary confirmatory testing. Procedures Date Code Description Status 09/19/2018 [id number] Colonoscopy Completed 09/09/2018 [id number] Mammogram Completed 02/17/2013 [id number] Colonoscopy Completed Medical Devices Description No Information Available Encounters Type Date Location Provider Dx Diagnosis Office Visit 01/21/2019 [facility] Internal Alexandro Roca NP S31.100A Unsp opn wnd abd 10:40a Medicine - Ccmob wall, r upper q w/o penet perit cav, init T81.89xA Oth complications of procedures, NEC, init Office Visit 10/24/2018 [facility] Jodi K85.91 Acute pancreatitis 10:52a taylor Salgado DO with uninfected Hospitalists necrosis, unspecified Z86.79 Personal history of other diseases of the circulatory system Z86.39 Personal history of endo, nutritional and metabolic disease Office Visit 10/24/2018 [facility] Dam[facility]o Suh K85.91 Acute pancreatitis 7:00a [facility] P[facility] M.D. with uninfected necrosis, unspecified Office Visit 10/23/2018 [facility] R09.02 Hypoxemia 10:51a taylor Salgado NP Hospitalists K85.90 Acute pancreatitis without necrosis or infection, unsp J44.9 Chronic obstructive pulmonary disease, unspecified E11.9 Type 2 diabetes mellitus without complications I10 Essential (primary) hypertension Office Visit 10/22/2018 10:51a [facility] R09.02 Hypoxemia Assoc,pc Hospitalists Ivy, RN LVN K85.90 Acute pancreatitis without necrosis or infection, uns J44.9 Chronic obstructive pulmonary disease, unspecified E11.9 Type 2 diabetes mellitus without complications I10 Essential (primary) hypertension Office Visit 10/20/2018 [facility] James Kaplan K85.90 Acute 10:50a Assoc,taylor Dang M.D.,FACP pancreatitis Hospitalists without necrosis or infection, unsp E11.9 Type 2 diabetes mellitus without complications Assessments Date Code Description Provider 04/21/2019 I10 Essential (primary) hypertension Alexandro Abelino, RN LVN 04/21/2019 E78.5 Hyperlipidemia, unspecified Alexadnro Abelino, RN LVN 04/21/2019 D64.9 Anemia, unspecified Alexandro Abelino, RN LVN 04/21/2019 R73.9 Hyperglycemia, unspecified Alexandro Abelino, RN LVN 04/21/2019 R32 Unspecified urinary incontinence Alexandro Abelino, RN LVN 04/21/2019 M25.552 Pain in left hip Alexandro Abelino, RN LVN 01/21/2019 S31.100A Unspecified open wound of abdominal Alexandro Abelino, RN LVN wall, right upper quadra 01/21/2019 T81.89xA Oth complications of procedures, Alexandro Abelino, RN LVN NEC, init 10/24/2018 K85.91 Acute pancreatitis with uninfected Jodi Vazquez DO necrosis, unspecified 10/24/2018 K85.91 Acute pancreatitis with uninfected Damaso Peralta M.D. necrosis, unspecified 10/24/2018 Z86.79 Personal history of other diseases Jodi Vazquez DO of the circulatory system 10/24/2018 Z86.39 Personal history of endo, Jodi Vazquez DO nutritional and metabolic disease 10/23/2018 R09.02 Hypoxemia Iris Haynes, RN LVN 10/23/2018 K85.90 Acute pancreatitis without necrosis Irispayton Haynes, RN LVN or infection, unsp 10/23/2018 J44.9 Chronic obstructive pulmonary Iris Haynes, RN LVN disease, unspecified 10/23/2018 E11.9 Type 2 diabetes mellitus without Iris Ivy, RN LVN complications 10/23/2018 I10 Essential (primary) hypertension Iris Haynes, RN LVN 10/22/2018 R09.02 Hypoxemia Iris Ivy, RN LVN 10/22/2018 K85.90 Acute pancreatitis without necrosis Iris Haynes, RN LVN or infection, unsp 10/22/2018 J44.9 Chronic obstructive pulmonary Iris Haynes, RN LVN disease, unspecified 10/22/2018 E11.9 Type 2 diabetes mellitus without Iris Haynes, RN LVN complications 10/22/2018 I10 Essential (primary) hypertension Iris Haynes, RN LVN 10/20/2018 K85.90 Acute pancreatitis without necrosis James Dang M.D.,FACP or infection, unsp 10/20/2018 E11.9 Type 2 diabetes mellitus without James Dang M.D., FACP complications Plan of Treatment Future Appointment(s):06/17/2019 2:00 pm - Jessica Calderón M.D. at [facility]04/21/2019 - Alexandro Roca NPI10 Essential (primary) hypertensionComments:HYPERTENSION:Well controlled on current regimen. Continue present management.E78.5 Hyperlipidemia, qvuezhjlnmbP15.9 Anemia, zpbspizedojP55.9 Hyperglycemia, mihxdcieslhE40 Unspecified urinary incontinenceNew Medication:Depend Underwear Small/Medium Extra Absorbency Female - Change three times daily as fhuahcE67.552 Pain in left hip Functional Status Description No Information Available Mental Status Description No Information Available Referrals Refer to Reason for Referral Status Appt Date Wound Clinic Received Partial 01/21/2019 [address] [place] [id number] [phone]
--- OUTSIDE RECORDS SUMMARY | 2019-05-26 19:00 | XMS REPORT | Continuity of Care Document ---
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 [phone] Problems Active Problems Provider Date Perforation of tympanic membrane Tacos Bowser MD Onset: 04/26/2011 Middle ear conductive hearing loss Tacos Bowser MD Onset: 04/26/2011 Dysfunction of eustachian tube Tacos Bowser MD Onset: 04/26/2011 Otogenic otalgia Tacos Bowser MD Onset: 04/26/2011 Sensorineural hearing loss Tacos Bowser MD Onset: 04/26/2011 Social History Type Date Description Comments Sex Unknown Tobacco Use Start: Unknown Never Smoked Cigarettes Tobacco Use Start: Unknown End: Unknown current.no Tobacco Use Start: Unknown End: Unknown current.no Smokeless Tobacco current.no ETOH Use does not use alcohol Tobacco Use Start: Unknown Patient has never smoked Smoking Status Reviewed: 04/07/19 Patient has never smoked Allergies, Adverse Reactions, Alerts Active Allergies Reaction Severity Comments Date Augmentin 05/19/2008 Avelox 09/08/2009 Aspirin 09/08/2009 Bextra 03/22/2011 Tolectin 03/22/2011 Opiates Asthma, hives 03/21/2012 Morphine 09/04/2012 Dilaudid 09/04/2012 Nucynta 09/04/2012 Avelox 09/04/2012 Tolectin 09/04/2012 Azithromycin 09/04/2012 Medications Active Medications SIG Qnty Indications Ordering Provider Date Albuterol Unknown Duoneb Unknown Celebrex Unknown Lisinopril Unknown Gemfibrozil Unknown COPD Inhaler as directed Unknown Immunizations CPT Code Status Date Vaccine Lot # [id number] Given Unknown Prevnar 13 For Intramuscular Use 04925 Given Unknown Influenza Virus Vaccine, 3 Years Of Age And Above, Intramuscular Vital Signs Date Vital Result Comment 04/07/2019 10:18am Weight 135.00 lb Weight 61.236 kg Height 62.52 inches 5'2.52" Height in cm's 158.8 cm BMI (Body Mass Index) 24.3 kg/m2 04/10/2018 9:39am Weight 155.00 lb Weight 70.308 kg Height 62.52 inches 5'2.52" Height in cm's 158.8 cm BMI (Body Mass Index) 27.9 kg/m2 Results Description No Information Available Procedures Date Code Description Status 04/07/2019 40857 Tympanometry Completed 04/07/2019 07409 Comprehensive Audiogram Completed Medical Devices Description No Information Available Encounters Type Date Location Provider Dx Diagnosis Office Visit 04/07/2019 [place],[facility] Tacos Quiñones H90.A32 Mix cndct/snrl 10:30a 07/29/07 MD Niels hear loss,uni,l ear w rstrcd hear cntra side Assessments Date Code Description Provider 04/07/2019 H90.A32 Mixed conductive and sensorineural hearing Tacos Bowser MD loss, unilateral, left ear with restricted hearing on the contralateral side Plan of Treatment No Information Available Functional Status Description No Information Available Mental Status Description No Information Available Referrals Description No Information Available
--- OUTSIDE RECORDS SUMMARY | 2019-05-26 19:00 | XMS REPORT | Summary of Care ---
:1960 Author Organization [facility] Address [address] [address] Care Team Providers Name Role Phone Nithya Blanco MATHIEU Primary Care Provider Reason for Visit Reason Comments Follow Up f/u drain check Encounter Details Date Type Department Care Team Description 04/23/2019 Office Visit [facility] Juan Frank, Postop check (Primary 1 Nichole Brown MD Dx) [place] [address] [address] [phone] [place] [address] Allergies Active Allergy Reactions Severity Noted Date Comments Augmentin Hives High 03/14/2016 Moxifloxacin Hives High 03/14/2016 Tapentadol Hcl Hives Low 03/14/2016 documented as of this encounter (statuses as of 04/23/2019) Medications Medication Sig Dispensed Refills Start Date End Date Status fluticasone-salmeterol Take 1 INHL by 0 Active diskus (ADVAIR DISKUS) inhalation TWICE 500-50 MCG/DOSE DAILY. Inhalation AEROSOL POWDER, BREATH ACTIVATED albuterol (PROVENTIL, 2.5 mg by 0 Active VENTOLIN) (2.5 MG/3ML) Inhalation-SVN 0.083% Inhalation Nebu route TWICE Soln DAILY. Calcium Take by mouth. 0 Active Carbonate-Vitamin D (CALCIUM 500 + D PO) EPINEPHrine (EPIPEN by Injection 0 Active 2-CARMENCITA) 0.3 MG/0.3ML route. Injection Solution Auto-injector fenofibrate 160 MG Oral Take 160 mg by 0 Active Tab mouth. gabapentin (NEURONTIN) Take 100 mg by 0 Active 100 MG Oral Cap mouth THREE TIMES DAILY. loratadine Take 10 mg by 0 Active (CLARITIN,ALAVERT) 10 mouth DAILY. MG Oral Tab montelukast (SINGULAIR) Take 10 mg by 0 Active 10 MG Oral Tab mouth DAILY. albuterol HFA (VENTOLIN Take 2 Puffs by 0 Active HFA) 108 (90 BASE) inhalation. MCG/ACT Inhalation Aero Soln Cholecalciferol Take by mouth. 0 Active (VITAMIN D3) 73438 UNITS Oral Tab pantoprazole (PROTONIX) Take 1 Tab by 30 Tab 0 11/08/2018 Active 40 MG Oral Tab EC mouth BEFORE BREAKFAST. polyethylene glycol Take 1 PKT by 30 Packet 0 11/08/2018 Active (MIRALAX) Oral Pack mouth DAILY. Avoid if you have one before daily. prochlorperazine Take 1 Tab by 30 Tab 0 11/07/2018 Active (COMPAZINE) 10 MG Oral mouth EVERY SIX Tab HOURS NEEDED (nausea or vomiting). cyanocobalamin (VITAMIN Take 1 Tab by 30 Tab 0 11/07/2018 Active B12) 1000 MCG Oral Tab mouth DAILY. furosemide (LASIX) 40 Take 1 Tab by 30 Tab 0 11/07/2018 Active MG Oral Tab mouth DIRECTED. Daily for 3 days then as needed for swelling of legs or shortness or breath metoprolol (LOPRESSOR) Take 1 Tab by 60 Tab 0 11/07/2018 Active 25 MG Oral Tab mouth TWICE DAILY. pancrelipase, 1 Tab by Jejunal 540 Tab 0 01/14/2019 Active [id number]-[id number], Tube route THREE (VIOKACE) 56948 units TIMES DAILY. Oral Tab morphine (ROXANOL) 100 0.25 mL by 30 mL 0 01/14/2019 Active MG/5ML Oral Solution Jejunal Tube route EVERY FOUR HOURS NEEDED (Breakthrough pain). Max Daily Amount: 30 mg. ferrous sulfate 220 (44 6.82 mL by 150 mL 0 01/14/2019 Active Fe) MG/5ML Oral Elixir Jejunal Tube route THREE TIMES DAILY. OXYcodone Take 1 Tab by 28 Tab 0 02/05/2019 Active (OXY-IR,OXY-FAST) 5 MG mouth EVERY FOUR Oral TabIndications: HOURS NEEDED Pancreatic fistula (severe pain). Max Daily Amount: 30 mg. 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 COPD (chronic obstructive pulmonary disease) 10/24/2018 HTN (hypertension) 10/24/2018 DM (diabetes mellitus) 10/24/2018 Acute pain of left knee 06/04/2016 Cervical spondylosis without myelopathy 03/14/2016 documented as of this encounter (statuses as of 04/23/2019) Resolved Problems Problem Noted Date Resolved Date Leukocytosis 02/24/2019 03/09/2019 Intra-abdominal abscess 02/07/2019 03/05/2019 Pancreatitis 11/29/2018 03/09/2019 Pneumoperitoneum 11/28/2018 03/09/2019 Pancreatic abscess 11/15/2018 03/05/2019 Severe malnutrition 10/25/2018 03/09/2019 Necrotizing pancreatitis 10/24/2018 03/09/2019 documented as of this encounter (statuses as of 04/23/2019) Social History Tobacco Use Types Packs/Day Years Used Date Never Smoker Smokeless Tobacco: Never Used Alcohol Use Drinks/Week oz/Week Comments No Alcohol Habits Answer Date Recorded How often do you have a drink containing alcohol? Never 10/25/2018 How many drinks containing alcohol do you have on a typical Not asked day when you are drinking? How often do you have six or more drinks on one occasion? Never 10/25/2018 Education Answer Date Recorded What is the highest level of school you have High school graduate 10/25/2018 completed or the highest degree you have received? Financial Resource Strain Answer Date Recorded How hard is it for you to pay for the very basics like food, Hard 10/25/2018 housing, medical care, and heating? Sex Assigned at Date Recorded Not on file Job Start Date Occupation Industry Not on file Not on file Not on file Travel History Travel Start Travel End No recent travel history available. documented as of this encounter Last Filed Vital Signs Not on filedocumented in this encounter Progress Notes Juan Frank MD - 04/23/2019 9:45 AM EDTPatient returns with her drain sucking air. This was reinserted. The drain is now functional. documented in this encounter Plan of Treatment Date Type Specialty Care Team Description 05/07/2019 Office Visit General Surgery Juan Frank MD [address] [address] [phone] Health Maintenance Due Date Last Done Comments Diabetic Eye Exam 1960 MEDICARE ANNUAL WELLNESS VISIT 1960 PAP SMEAR 1960 URINE MICROALBUMIN 1960 PNEUMOCOCCAL 0-64 YRS (1 of 1 - 1967 PPSV23) DEPRESSION SCREENING 1973 HIV SCREENING 1976 FOOT EXAM 1979 LIPID DISORDER SCREENING 1979 MAMMOGRAM (SCREENING) 2001 COLONOSCOPY SCREENING 2011 ZOSTER IMMUNIZATION SERIES (1 of 2011 2) INFLUENZA VACCINE (#1) 2019 HEMOGLOBIN A1C 08/28/2019 02/25/2019 HEPATITIS C SCREENING Completed 10/26/2018 HPV IMMUNIZATION SERIES Aged Out No longer eligible based on patient's age to complete this topic MENINGOCOCCAL VACCINE IMM Aged Out No longer eligible based on patient's age to complete this topic documented as of this encounter Implants Implanted Type Area [employer] Out[employer] Supervisor Device Shelf Model / Serial / Identifier Expiration Lot Date Aspira Pleural Drainage Cathter Left: / Implanted: Qty: 1 on 12/24/2018 at [facility] Pleural [id number] / Space [id number] documented as of this encounter Results Not on filedocumented in this encounter Visit Diagnoses Diagnosis Postop check - Primary Follow-up examination, following unspecified surgery documented in this encounter Insurance Payer Benefit Plan / Subscriber ID Effective Dates Phone Address Type Group MEDICARE MEDICARE PART A xxxxxxxxxxx 2000-Present Medicare & B MEDICAID [facility] xxxxxxxx 2019-Present Medicaid [place] MED[place] Guarantor Name Account Type Relation to Date of Phone Billing Patient Address Tess Clark Personal/Family 1960 [address] (Home) [place], [place] [phone] (Work) documented as of this encounter Advance Directives Code Status Date Activated Date Inactivated Comments Full Code 12/02/2018 2:23 PM 02/06/2019 11:50 PM Does the patient have decision No making capacity? Order was discussed with: Unable to determine at this time postop anesthesia I discussed all options and Unable to determine at this time patient/surrogate requested and (full code until choice is made agreed to: and new order placed) Full Code 11/15/2018 6:49 AM 11/24/2018 3:28 PM Does the patient have decision making capacity? Yes Order was discussed with: Patient I discussed all options and patient/surrogate requested and agreed to: Full Code Full Code 10/24/2018 7:28 PM 11/07/2018 3:54 PM Does the patient have decision making capacity? Yes Order was discussed with: Patient I discussed all options and patient/surrogate requested and agreed to: Full Code
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
--- OUTSIDE RECORDS SUMMARY | 2019-05-26 19:00 | XMS REPORT | Summary of Care ---
:1960 Author Organization [facility] Address [address] [address] Care Team Providers Name Role Phone Nithya Blanco MATHIEU Primary Care Provider Reason for Visit Reason Comments Post-op Follow-up drain fell out. Encounter Details Date Type Department Care Team Description 04/16/2019 Office Visit [facility] General Surgery Juan Frank, Change or removal of drains (Primary Dx); 1 Nichole Brown MD Pancreatic fistula [place] [phone] [address] NICHO[address] BROWN [phone] [place] [address] Allergies Active Allergy Reactions Severity Noted Date Comments Augmentin Hives High 03/14/2016 Moxifloxacin Hives High 03/14/2016 Tapentadol Hcl Hives Low 03/14/2016 documented as of this encounter (statuses as of 04/16/2019) Medications Medication Sig Dispensed Refills Start Date [...] Take by mouth. 0 Active (VITAMIN D3) 43497 UNITS Oral Tab pantoprazole (PROTONIX) Take 1 [...] by Jejunal 540 Tab 0 01/14/2019 Active ceo-fczk-ktgp, Tube route THREE (VIOKACE) 44069 units TIMES DAILY. 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 COPD (chronic obstructive pulmonary disease) 10/24/2018 HTN (hypertension) 10/24/2018 DM (diabetes mellitus) 10/24/2018 Acute pain of left knee 06/04/2016 Cervical spondylosis without myelopathy 03/14/2016 documented as of this encounter (statuses as of 04/16/2019) Resolved Problems Problem Noted Date Resolved Date Leukocytosis 02/24/2019 03/09/2019 Intra-abdominal abscess 02/07/2019 03/05/2019 Pancreatitis 11/29/2018 03/09/2019 Pneumoperitoneum 11/28/2018 03/09/2019 Pancreatic abscess 11/15/2018 03/05/2019 Severe malnutrition 10/25/2018 03/09/2019 Necrotizing pancreatitis 10/24/2018 03/09/2019 documented as of this encounter (statuses as of 04/16/2019) Social History Tobacco Use Types Packs/Day Years [...] encounter Progress Notes Juan Frank MD - 04/16/2019 8:45 AM EDTPancreatic drain fell out yesterday. Was putting out 50 ccs/day. New drain reinserted and sutured inplace with 2-0 Nylon. 9: 12 AM EDTdocumented in this encounter Plan of Treatment Date Type Specialty Care Team Description 05/07/2019 Office Visit General Surgery Juan Frank MD [address] [address] [phone] Health Maintenance Due Date Last Done Comments [...] of this encounter Implants Implanted Type Area Meatcutter Device Shelf Model / Serial / Identifier Expiration Lot Date Aspira Pleural Drainage Cathter Left: / Implanted: Qty: 1 on 12/24/2018 at [facility] Pleural [id number] / Space [id number] documented as of this encounter Results Not on filedocumented in this encounter Visit Diagnoses Diagnosis Change or removal of drains - Primary Other specified aftercare following surgery Pancreatic fistula Other specified disease of pancreas documented in this encounter Insurance Payer Benefit Plan / Subscriber ID Effective Dates Phone Address Type Group MEDICARE MEDICARE PART A xxxxxxxxxxx 2000-Present Medicare & B MEDICAID [facility] xxxxxxxx 2019-Present Medicaid [place] MED[place] Guarantor Name Account Type Relation to Date of Phone Billing Patient Address Tess Clark Personal/Family 1960 [address] (Home) [place], [place] [phone] [id number] (Work) documented as of this encounter Advance [...]
--- OUTSIDE RECORDS SUMMARY | 2019-05-26 19:00 | XMS REPORT | Continuity of Care Document ---
:1960 External Reference #:[id number] Author Name Marcia Stanley NP (transmitted by agent of provider Cathi Guillaume) Address [address], [address] [place] [id number] Care Team Providers Name Role Phone Nithya Blanco FNP - Nurse Care Team Information Refractory Technician [phone] Practitioner Robert Ortega MD - Hospitalist Care Team Information Refractory Technician [phone] Nancie Egan MD - Internal Care Team Information Refractory Technician Medicine Problems Active Problems Provider Date Asthma [...] presumed cause; no discharge summary in the [facility] database Social History Type Date Description Comments Sex Unknown Tobacco Use Start: Unknown Never Smoked Cigarettes Smoking Status Reviewed: 05/21/19 Never Smoked Cigarettes ETOH Use Denies alcohol [...] Small/Medium Extra daily as needed Absorbency Female [facility] Ibuprofen take one tablet by 60tabs Alexandro Roca NP 01/27/2019 600mg mouth three times a Tablets day as needed with food Montelukast Sodium take 1 tablet by 90tabs Alexandro Roca NP 09/29/2018 mouth once daily 10mg Tablets Glucose Meter Test for use 1-3 times 90units Alexandro Roca NP 09/01/2018 Strips Advanced daily Strips Lisinopril take 1 tablet by 90tabs I10 Alexandro Roca NP 07/31/2018 10mg mouth once daily Tablets Donut Pillow For use when 1units M53.3 Alexandro Roca NP 07/31/2018 sitting Cardizem CD 2 by mouth every 180caps I10 Tracie Mills, 07/08/2018 120mg day N.P. Caps ER 24HR Blood Pressure check bp three 1units I10 Alexandro Roca NP 07/01/2018 Monitor Auto times weekly at [facility] home [facility] Blood Pressure Kit check twice a day 1units R55 Robert Ortega MD 06/09/2018 for hypertension Kit and record in a log book Freestyle Lite for blood glucose 1units E11.9 Robert Ortega MD 06/09/2018 Blood Glucose monitoring once Monitoring System daily for diabetes mellitus Device Pulmicort Flexhaler inhale one puff by 3units J45.909 Marcia 04/09/2018 mouth twice a day MARC Stanley 90mcg/Act Aerosol Ra Vitamin B-12 TR take 1 tablet by 90tabs Alexandro Roca NP mouth once daily 1000mcg Tablets ER Metoprolol Tartrate take 1 tablet by 180tabs Alexandro Roca NP mouth twice a day 25mg Tablets Furosemide take 1 tablet by 90tabs Alexandro Roca NP 40mg mouth as directed Tablets for 3 days then if needed for ... (refer to prescription notes). Amlodipine Besylate take 1 tablet by 90tabs Alexandro Roca NP mouth once daily 5mg Tablets Bevespi Aerosphere 2 puffs inhalation 17.7gm Marcia twice daily. MARC Stanley 9-4.8mcg/Act Aerosol Isosorbide 1 by mouth every 90tabs Alexandro Roca NP Mononitrate ER day 60mg Tablets ER 24HR Fenofibrate 1 by mouth every 90tabs Alexandro Roca NP 160mg day Tablets Pantoprazole Sodium take 1 tablet by 90tabs Alexandro Roca NP mouth once daily 40mg Tablets DR Ventolin HFA 2 puffs by mouth 1units Alexandro Roca NP four times a day as 108(90Base) mcg/Act needed Aerosol Ipratropium 1 vial in nebulizer 90ml Marcia Bryan/Albuterol every 4-6 hours as MARC Stanley Sulfate needed for asthma 0.5-2.5(3)mg/3ML Solution Epipen 2-Gulshan use as directed 1units Unknown 0.3mg/0.3ML Solution Auto-Inject Albuterol Sulfate 1 vial via 75ml J44.9 Alexandro MARC Roca nebulizer 4 times (2.5mg/3ML) 0.083% daily as needed Nebulizer Medications Administered in Office Medication SIG Qnty Indications Ordering Provider Date Inj, Regadenoson, 0.1 MG Jason Newell, DO [facility] 05/27/2018 Injection Technetium TC 99M Jason Newell, DO [facility] 05/27/2018 Tetrofosmin, Per Unit Dose Up To 40 Millicuries Injection Depomedrol 80MG Marcelo Gamboa M.D. 05/06/2014 Injection Immunizations CPT Code Status Date Vaccine Lot # [id number] Given 07/01/2018 Influenza Virus Vaccine, Quadrivalent, Split, [id number] Preservative Free [id number] Given 05/07/2016 Influenza Virus 3Yrs & Over Vital Signs Date Vital Result Comment 05/21/2019 10:44am Height 61 inches 5'1" Weight 130.50 lb Heart Rate 64 /min BP Systolic Sitting 132 mmHg Lue reg cuff BP Diastolic Sitting 68 mmHg Lue reg cuff O2 % BldC Oximetry 98 % On Ra BMI (Body Mass Index) 24.7 kg/m2 04/21/2019 11:52am Height 61 inches 5'1" Weight 138.12 lb Heart Rate 81 /min BP Systolic 126 mmHg BP Diastolic 75 mmHg Body Temperature 97.3 F O2 % BldC Oximetry 97 % BMI (Body Mass Index) 26.1 kg/m2 Results Test Date Facility Test Result H/L Range Note Urine Culture And 05/12/2019 [facility] Urine Culture SEE RESULT [address] [place] [address] [phone] Lipid Profile 04/21/2019 [facility] Triglycerides 161 mg/dL 2 (Trig/Chol/HDL) [address] [place] [address] [phone] Cholesterol 166 mg/dL 3 HDL Cholesterol 46.7 mg/dL 4 LDL Cholesterol 87 mg/dL 5 Comp Metabolic 04/21/2019 [facility] Sodium 142 mmol/L Normal 135-[address] [place] [address] [phone] Potassium 4.2 mmol/L Normal 3.5-5.0 Chloride 106 [...] Egfr 88.2 >60 6 Laboratory test 04/21/2019 [facility] Hemoglobin A1c 6.5 % High 4.0-5.6 [address] (Glyco HGB) [place] [address] [phone] CBC Auto Diff 04/21/2019 [facility] White Blood 5.9 Normal 3.5 -10.[address] Count 10^3/[place] [address] [phone] Red Blood Count 4.70 10^6/uL Normal 3.70-4.87 [...] % 0.1 Iron & Iron Binding 04/21/2019 [facility] Iron 70 g/dL Normal 50-[address] [place] [address] [phone] Unsaturated Iron Binding < 278 g/dL Total Iron Binding Capacity 293 g/dL Normal 250-450 Transferrin 209 mg/dL Normal 203-362 % Iron Saturation 24 % Normal 15-55 Urine Culture And 04/21/2019 [facility] Urine SEE RESULT [address] [place] [address] [phone] Laboratory test 04/21/2019 [facility] Vitamin B12 326 pg/mL Normal 180- [address] [place] [address] [phone] Laboratory test 11/27/2018 [facility] Blood SEE RESULT [address] [place] [address] [phone] CBC Auto Diff 11/27/2018 [facility] White Blood 13.6 High 3.5 - [address] Count 10^3/uL 10.8 [place] [address] [phone] Red Blood Count 3.23 10^6/uL Low 3.70-4.87 [...] Red Blood Cells % 0.0 Inr/Protime 11/27/2018 [facility] Inr 1.45 High 0.82-1.[address] [place] [address] [phone] Comp Metabolic 11/27/2018 [facility] Sodium 134 mmol/L Low 135 -[address] [place] [address] [phone] Potassium 3.9 mmol/L Normal 3.5-5.0 Chloride 100 [...] Egfr 104.4 >60 12 Laboratory test 11/27/2018 [facility] Lipase 30 U/L Normal 11.0-82.[address] [place] [address] [phone] C Reactive Protein 354.25 mg/L High <8.01 Lactic Acid 1.2 mmol/L Normal 0.5-2.0 13 1 SEE RESULT BELOW Name: PARDEEP ZHOUMARISA Davis : [address]: Alexandro Roca LOBBY ATTENDANT Acct: [id number] Unit: [id number] AGE: 59 Location: [facility] Re05/12/19 SEX: F Status: REG REF SPEC: [id number] JOSEPHINE: 05/12/[address]: Alexandro Roca NP REQ: [id number] RECD: 05/12/19 STATUS: COMP _ SOURCE: URINE SPDESC: ORDERED: Urine Culture Procedure Result Reported Site Urine Culture Final 05/13/19- 1042 ML No growth of clinically significant organisms * ML - Main Lab . END OF REPORT DEPARTMENT OF PATHOLOGY, [address] [place] [address] Lj Bravo M.D. Director [facility] # [id number] 2 Desirable: <150 Borderline High: 150-199 High: [...] in selective patients <6.0%. Please refer to [place] [employer] diabetic care guidelines for further information. 8 SEE RESULT BELOW Name: PARDEEP ZHOUMARISA Davis : [address]: Alexandro Roca NP Acct: [id number] Unit: [id number] AGE: 59 Location: [facility] Re04/21/19 SEX: F Status: REG REF SPEC: [id number] JOSEPHINE: 04/21/19-[address]: Alexandro Roca NP REQ: [id number] RECD: 04/21/19 STATUS: COMP _ SOURCE: URINE SPDESC: ORDERED: Urine Culture COMMENTS: FASTING 10 HOUR Procedure Result Reported Site Urine Culture Final 04/23/19- 08 ML Mixed robbi; possible contamination. Suggest resubmission. * ML - Main Lab . END OF REPORT DEPARTMENT OF PATHOLOGY, [address] [place] [address] Lj Bravo M.D. Director [facility] # [id number] Normal Range 180 to 914 Indeterminate Range 145 to 180 Deficient Range <145 10 SEE RESULT BELOW Name: MARIE ZHOU I : [address]: Curry Brewster MD Acct: [id number] Unit: [id number] AGE: 58 Location: ED Re11/27/18 SEX: F Status: REG ER SPEC: [id number] JOSEPHINE: 11/27/[address] [facility] [address]: Curry Brewster MD REQ: [id number] RECD: 11/27/18 STATUS: SCOTT COLEMAN DR: Alexandro Roca LOBBY ATTENDANT _ SOURCE: BLOOD,VENO SPDES: ORDERED: Blood Cult Procedure Result Reported Site Aerobic Culture Bottle Final 05/07/19- 2212 ML No Growth Day 5 Anaerobic Culture Bottle Final 12/02/18- 2210 ML No Growth Day 5 * ML - Main Lab . END OF REPORT DEPARTMENT OF PATHOLOGY, [address] [place] [address] Lj Bravo M.D. Director [facility] # [id number] 11 Standard intensity warfarin therapeutic range: 2.0-3.0 [...] 5 Kidney failure <15 (or dialysis) 13 [facility] Severe Sepsis and Septic Shock Management Bundle Measure requires all lactic acids initially measuring >2.0 mmol/L be repeated. Procedures Date Code Description Status 09/19/2018 [id number] Colonoscopy Completed 09/09/2018 [id number] Mammogram Completed 02/17/2013 [id number] Colonoscopy Completed Medical Devices Description No Information Available Encounters Type Date Location Provider Dx Diagnosis Office Visit 04/21/2019 [facility] Alexandro Roca NP I10 Essential (primary ) 11:40a Medicine - Ccmob hypertension E78.5 Hyperlipidemia, unspecified D64.9 Anemia, unspecified R73.9 Hyperglycemia, unspecified R32 Unspecified urinary incontinence M25.552 Pain in left hip Office Visit 01/21/2019 10:40a [facility] [address] Internal Alexandro Abelino, MARC S31.100A Unsp opn wnd Medicine - Ccmob abd wall, r upper q w/o penet perit cav, init T81.89xA Oth complications of procedures, NEC, init Assessments Date Code Description Provider 05/21/2019 J45.909 Unspecified asthma, uncomplicated Marcia Stanley NP 05/21/2019 J44.9 Chronic obstructive pulmonary disease, Marcia Stanley NP unspecified 04/21/2019 I10 Essential (primary) hypertension Alexandro Abelino, LOBBY ATTENDANT 04/21/2019 E78.5 Hyperlipidemia, unspecified Alexandro Abelino, LOBBY ATTENDANT 04/21/2019 D64.9 Anemia, unspecified Alexandro Abelino, LOBBY ATTENDANT 04/21/2019 R73.9 Hyperglycemia, unspecified Alexandro Abelino, LOBBY ATTENDANT 04/21/2019 R32 Unspecified urinary incontinence Alexandro Abelino, LOBBY ATTENDANT 04/21/2019 M25.552 Pain in left hip Alexandro Abelino, LOBBY ATTENDANT 01/21/2019 S31.100A Unspecified open wound of abdominal wall, Alexandrojuancarlos Roca, LOBBY ATTENDANT right upper quadra 01/21/2019 T81.89xA Oth complications of procedures, NEC, init Alexandrojuancarlos Roca NP Plan of Treatment Future Appointment(s):11/19/2019 8:30 am - Marcia Stanley NP [facility]06/17/2019 2:00 pm - Jessica Calderón M.D. at [facility]05/21/2019 - Marcia Stanley NPJ45.909 Unspecified asthma, uncomplicatedFollow up:6 months (PFTs prior)Recommendations: I have refilled your medications for youJ44.9 Chronic obstructive pulmonary disease, unspecified Functional Status Description No Information Available Mental Status Description No Information Available Referrals Refer to Reason for Referral Status Appt Date Wound Clinic Received Partial 01/21/2019 [address] [place] [phone]
--- OUTSIDE RECORDS SUMMARY | 2019-05-26 19:00 | XMS REPORT | Summary of Care ---
:1960 Author Organization [facility] Address [address] [address] Care Team Providers Name Role Phone Nithya Blanco MATHIEU Primary Care Provider Reason for Visit Reason Comments Follow Up f/u drain check Encounter Details Date Type Department Care Team Description 05/06/2019 Office Visit [facility] General Surgery Juan Frank, Surgical followup 1 Nichole Bronw MD visit (Primary Dx) [place] [phone] [address] [phone] [place] [address] Allergies Active Allergy Reactions Severity Noted Date Comments Augmentin Hives High 03/14/2016 Moxifloxacin Hives High 03/14/2016 Tapentadol Hcl Hives Low 03/14/2016 documented as of this encounter (statuses as of 05/06/2019) Medications Medication Sig Dispensed Refills Start Date [...] Take by mouth. 0 Active (VITAMIN D3) 22202 UNITS Oral Tab pantoprazole (PROTONIX) Take 1 [...] by Jejunal 540 Tab 0 01/14/2019 Active rqb-tfcx-sbco, Tube route THREE (VIOKACE) 55239 units TIMES DAILY. 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 Her fistula is now closed and she has no drainage from or around her drain. Her drain was removed. To return only as needed. documented in this encounter Plan of Treatment Health Maintenance Due Date Last Done Comments [...] of this encounter Implants Implanted Type Area Mill Beam Fitter Device Shelf Model / Serial / Identifier Expiration Lot Date Aspira Pleural Drainage Cathter Left: / Implanted: Qty: 1 on 12/24/2018 at [facility] Pleural [id number] / Space [id number] documented as of this encounter Results Not on filedocumented in this encounter Visit Diagnoses Diagnosis Surgical followup visit - Primary Follow-up examination, following unspecified surgery documented in this encounter Insurance Payer Benefit Plan / Subscriber ID Effective Dates Phone Address Type Group MEDICARE MEDICARE PART A xxxxxxxxxxx 2000-Present Medicare & B MEDICAID [facility] xxxxxxxx 2019-Present Medicaid [place] MEDICAID Guarantor Name Account Type Relation to Date of Phone Billing Patient Address Tess Clark Personal/Family 1960 [address] (Home) [place], [place] [phone] (Work) documented as of this encounter Advance [...]
--- OUTSIDE RECORDS SUMMARY | 2019-05-26 19:00 | XMS REPORT | Summary of Care ---
:1960 Author Organization [facility] Address [address] [address] Care Team Providers Name Role Phone Nithya Blanco MATHIEU Primary Care Provider Reason for Visit Reason Comments Surgical Followup drain concerns Encounter Details Date Type Department Care Team Description 04/06/2019 Office Visit [facility] General Surgery Juan Frank, Gastrostomy tube dysfunction (HCC) (Primary Dx); 1 Nichole Brown MD Pancreatic fistula [place] [phone] [address] [phone] [place] [address] Allergies Active Allergy Reactions Severity Noted Date Comments Augmentin Hives High 03/14/2016 Moxifloxacin Hives High 03/14/2016 Tapentadol Hcl Hives Low 03/14/2016 documented as of this encounter (statuses as of 04/06/2019) Medications Medication Sig Dispensed Refills Start Date [...] Take by mouth. 0 Active (VITAMIN D3) 24735 UNITS Oral Tab pantoprazole (PROTONIX) Take 1 [...] by Jejunal 540 Tab 0 01/14/2019 Active knw-qwbe-sokg, Tube route THREE (VIOKACE) 95737 units TIMES DAILY. 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 COPD (chronic obstructive pulmonary disease) 10/24/2018 HTN (hypertension) 10/24/2018 DM (diabetes mellitus) 10/24/2018 Acute pain of left knee 06/04/2016 Cervical spondylosis without myelopathy 03/14/2016 documented as of this encounter (statuses as of 04/06/2019) Resolved Problems Problem Noted Date Resolved Date Leukocytosis 02/24/2019 03/09/2019 Intra-abdominal abscess 02/07/2019 03/05/2019 Pancreatitis 11/29/2018 03/09/2019 Pneumoperitoneum 11/28/2018 03/09/2019 Pancreatic abscess 11/15/2018 03/05/2019 Severe malnutrition 10/25/2018 03/09/2019 Necrotizing pancreatitis 10/24/2018 03/09/2019 documented as of this encounter (statuses as of 04/06/2019) Social History Tobacco Use Types Packs/Day Years [...] encounter Progress Notes Juan Frank MD - 04/06/2019 3:30 PM EDTThe patient was asked to be see today because of some drainage and redness around her G-tube site. This has not been used in a month and she continues to gain weight. There is irritation, but no cellulitis or evidence of infection. Because it is not being used the tube was removed without difficulty. To return in 1 month for routine follow up of her pancreatic fistula.Electronically signed by Juan Frank MD at 2018 3:53 PM EDTdocumented in this encounter Plan of Treatment Date Type Specialty Care Team Description 05/07/2019 Office Visit General Surgery Juan Frank MD [address] [address] [phone] Health Maintenance Due Date Last Done Comments [...] of this encounter Implants Implanted Type Area Manager Business Planning Device Shelf Model / Serial / Identifier Expiration Lot Date Aspira Pleural Drainage Cathter Left: / Implanted: Qty: 1 on 12/24/2018 at [facility] Pleural [id number] / Space [id number] documented as of this encounter Results Not on filedocumented in this encounter Visit Diagnoses Diagnosis Gastrostomy tube dysfunction (HCC) - Primary Mechanical complication of gastrostomy Pancreatic fistula Other specified disease of pancreas documented in this encounter Insurance Payer Benefit Plan / Subscriber ID Effective Dates Phone Address Type Group MEDICARE MEDICARE PART A xxxxxxxxxxx 2000-Present Medicare & B MEDICAID [facility] xxxxxxxx 2019-Present Medicaid [place] MEDICAID Guarantor Name Account Type Relation to Date of Phone Billing Patient Address Tess Clark Personal/Family 1960 [phone] (Home) [place], [place] [phone] (Work) documented as of this encounter Advance [...]
[2019-05-26 20:37] VITALS: BP 157/78
[2019-05-26] MEDS ORDERED: Aspirin 81 mg CHEW TAB* 81 MG TAB.CHEW PO ONE (21:08)
--- NOTE | 2019-05-26 21:10 | UC ---
Cardiac HPI - HPI Summary HPI Summary: 2 DAYS OF SHARP PAIN LEFT ANTERIOR CHEST THAT RADIATES THROUGH TO HER BACK. ALSO COMPLAINS OF SOME NUMBNESS/TINGLING IN HER LEFT ARM. PAIN IS CONSTANT BUT WORSE WITH EXERTION. SHE DENIES SHORTNESS OF BREATH. NO NAUSEA. NO SWEATS. NO PERSONAL CARDIAC HISTORY HOWEVER DOES HAVE A FAMILY HISTORY OF HEART DISEASE. NONSMOKER. - History of Current Complaint Chief Complaint: UCUpperExtremity Stated Complaint: ARM PAIN Time Seen by Provider: 05/26/19 20:45 Hx Obtained From: Patient Onset/Duration: Sudden Onset, Lasting Days, Still Present Timing: Constant Initial Severity: Moderate Current Severity: Moderate Pain Intensity: 9 Chest Pain Location: Left Anterior Character: Sharp/Stabbing Aggravating Factor(s): Exertion Alleviating Factor(s): Nothing Associated Signs & Symptoms: Positive: Chest Pain, Numbness - LEFT ARM, Tingling - LEFT ARM, Back Pain. Negative: Dizziness, SOB, Diaphoresis, Nausea/ Vomiting - Allergy/Home Medications Allergies/Adverse Reactions: Allergies Allergy/AdvReac Type Severity Reaction Status Date / Time Adhesive Tape Allergy Mild Rash Verified 05/26/19 20:37 amoxicillin [From Augmentin] Allergy Rash Verified 05/26/19 20:37 azithromycin Allergy Rash And Verified 05/26/19 20:37 Itching clavulanic acid Allergy Rash Verified 05/26/19 20:37 [From Augmentin] moxifloxacin [From Avelox] Allergy Rash Verified 05/26/19 20:37 tapentadol [From Nucynta] Allergy Rash Verified 05/26/19 20:37 tolmetin [From Tolectin] Allergy Rash Verified 05/26/19 20:37 valdecoxib [From Bextra] Allergy Rash Verified 05/26/19 20:37 morphine AdvReac Difficulty Verified 05/26/19 20:37 Breathing PERFUMES Allergy Severe DYSPNEA Uncoded 05/26/19 20:37 Home Medications: Home Medications Calcium Carbonate/Vitamin D3 [Calcium 500 + Vit D Caplet] 1 each PO 05/26/19 [ History] Naproxen TAB* [Naprosyn 250 mg TAB*] 05/26/19 [History] inhla 05/26/19 [History] PMH/Surg Hx/FS Hx/Imm Hx Endocrine History: Diabetes Cardiovascular History: Hypertension Respiratory History: COPD, Asthma Other History Of: Negative For: Anticoagulant Therapy - Surgical History Surgical History: Yes Surgery Procedure, Year, and Place: TUBAL LIGATION in 1988. hole in ear closed. tonsils as a child. RIGHT ULNAR NERVE TRANSPOSITON 05/14 [facility]. left ulnar nerve surgery, tubal ligation, pancreatitis surgery 2018. ulnar nerve repair - Family History Known Family History: Positive: Cardiac Disease, Hypertension, Diabetes, Respiratory Disease - asthma - Social History Alcohol Use: None Substance Use Type: None Smoking Status (MU): Never Smoked Tobacco Have You Smoked in the Last Year: No - Immunization History Most Recent Influenza Vaccination: fall 2017 Most Recent Tetanus Shot: unknown Most Recent Pneumonia Vaccination: within 5 years Review of Systems All Other Systems Reviewed And Are Negative: Yes Constitutional: Positive: Negative Skin: Positive: Negative Respiratory: Positive: Negative Cardiovascular: Positive: Chest Pain Gastrointestinal: Positive: Negative Neurological: Positive: Paresthesia Physical Exam Triage Information Reviewed: Yes Appearance: Well-Appearing, No Pain Distress, Well-Nourished Vital Signs: Initial Vital Signs Temp 97.5 F 05/26/19 20:26 Pulse 71 05/26/19 20:26 Resp 16 05/26/19 20:26 BP 157/78 05/26/19 20:26 Pulse Ox 100 05/26/19 20:26 Vital Signs Reviewed: Yes Eyes: Positive: Conjunctiva Clear ENT: Positive: Hearing grossly normal Neck: Positive: Supple Respiratory Exam: Normal Cardiovascular Exam: Normal Abdomen Description: Positive: Nontender, Soft Musculoskeletal: Positive: No Edema, Other: - BILATERAL ANKLE BRACES Neurological: Positive: Alert Psychological: Positive: Age Appropriate Behavior Skin: Negative: Rashes Diagnostics - EKG Cardiac Rate: Bradycardia - 58BPM Cardiac Rhythm: Sinus: Normal Ectopy: None ST Segment: Normal - Assessment/Plan Course Of Treatment: ONSET OF LEFT ANTERIOR CHEST PAIN WHILE AT REST. RADIATING TO BACK AND DOWN ARM. TO [facility]. - Clinical Impression Provider Diagnosis: Chest pain - Physician Notifications Discussed Patient Care With: Akanksha Chua Time Discussed With Above Provider: 21:10 Discharge ED - Sign-Out/Discharge Documenting (check all that apply): Patient Departure All imaging exams completed and their final reports reviewed: No Studies - Discharge Plan Condition: Stable Disposition: TRANS HIGHER LVL OF CARE FAC Referrals: Alexandro Roca NP [Primary Care Provider] - - Billing Disposition and Condition Condition: STABLE Disposition: Trans Higher Lvl of Care Fac
== END 2019-05-26 21:30 | disposition short-term general hospital (02) ==
LOC: UCEAST 18:53
DX: R07.9 Chest pain, unspecified (principal); M79.602 Pain in left arm; E11.9 Type 2 diabetes mellitus without complications; I10 Essential (primary) hypertension; J45.909 Unspecified asthma, uncomplicated; J44.9 Chronic obstructive pulmonary disease, unspecified; R20.2 Paresthesia of skin; Z88.0 Allergy status to penicillin; Z88.1 Allergy status to other antibiotic agents; Z88.5 Allergy status to narcotic agent; Z91.09 Other allergy status, other than to drugs and biological substances; R94.31 Abnormal electrocardiogram [ECG] [EKG]; E78.00 Pure hypercholesterolemia, unspecified; K21.9 Gastro-esophageal reflux disease without esophagitis; M19.90 Unspecified osteoarthritis, unspecified site; Z87.01 Personal history of pneumonia (recurrent); Z88.8 Allergy status to other drugs, medicaments and biological substances; Z79.899 Other long term (current) drug therapy
CPT/HCPCS: 93005; 99213; A9270-GY; G0463

== ENCOUNTER 2019-05-26 21:53 | Emergency (ER) | payer MEDICARE, MEDICAID ==
[2019-05-26 22:01] VITALS: BP 145/85
[2019-05-26 22:27] LABS: ABS Eosinophils 0.2 10^3/ul (0-0.6); ABS Lymphocytes 1.2 10^3/ul (1.0-4.8); ABS Monocytes 0.4 10^3/ul (0-0.8); Eosinophil % 3.6 %; Hematocrit 41 % (35-47); Hemoglobin 13.7 g/dL (12.0-16.0); Lymphocyte % 25.7 %; Mean Corpuscular HGB Conc 33 g/dL (31-36); Mean Corpuscular Hemoglobin 29 pg (27-31); Mean Corpuscular Volume 87 fL (80-97); Platelet Count 124 10^3/uL (150-450); Red Blood Count 4.72 10^6 /uL (3.70-4.87); Red Cell Distribution Width 15 % (10-15); White Blood Count 4.9 10^3/uL (3.5-10.8)
[2019-05-26 22:34] LABS: INR 0.95 (0.82-1.09)
--- NOTE | 2019-05-26 22:35 | ED ---
HPI Chest Pain - HPI Summary HPI Summary: This pt is a 59 Y/O F presenting to [facility] accompanied by her with a CC of L lateral chest pain that radiates around her shoulder and down her L arm that started while she was sitting down yesterday at 2100 and currently rates the pain a 9/10 in severity. She states that the pain is constant. She denies any nausea, diaphoresis, vomiting, headaches, SOB, and sore throats. She states that she is left handed and uses her cane on her L side which aggravates her pain. She denies any alleviating factors. She has a PMHx of diabetes, HTN, hypercholesterolemia, and PNA. - History of Current Complaint Chief Complaint: EDChestPainROMI Time Seen by Provider: 05/26/19 22:06 Hx Obtained From: Patient Onset/Duration: Started Days Ago - 1, Still Present Time of Onset: 21:00 Timing: Constant Initial Severity: Severe Current Severity: Severe Pain Intensity: 9 Pain Scale Used: 0-10 Numeric Chest Pain Location: Left Lateral Chest Pain Radiates: Yes Chest Pain Radiates To:: Shoulder - L, Arm - L Aggravating Factor(s): Other: - using her cane (she is left handed) Alleviating Factor(s): Nothing Associated Signs and Symptoms: Positive: Chest Pain - L lateral, Numbness - L arm. Negative: Headaches, Shortness of Breath, Diaphoresis, Nausea, Vomiting - Additional Pertinent History Primary Care Physician: BRANDI - Allergy/Home Medications Allergies/Adverse Reactions: Allergies Allergy/AdvReac Type Severity Reaction Status Date / Time Adhesive Tape Allergy Mild Rash Verified 05/26/19 22:02 amoxicillin [From Augmentin] Allergy Rash Verified 05/26/19 22:02 azithromycin Allergy Rash And Verified 05/26/19 22:02 Itching clavulanic acid Allergy Rash Verified 05/26/19 22:02 [From Augmentin] moxifloxacin [From Avelox] Allergy Rash Verified 05/26/19 22:02 tapentadol [From Nucynta] Allergy Rash Verified 05/26/19 22:02 tolmetin [From Tolectin] Allergy Rash Verified 05/26/19 22:02 valdecoxib [From Bextra] Allergy Rash Verified 05/26/19 22:02 morphine AdvReac Difficulty Verified 05/26/19 22:02 Breathing PERFUMES Allergy Severe DYSPNEA Uncoded 05/26/19 20:37 Home Medications: Home Medications Budesonide Flexhaler 90 (NF) [Pulmicort Flexhaler 90 mcg/act (NF)] 1 puff INH BID 05/26/19 [History Confirmed 05/26/19] Cyanocobalamin TAB* [Vitamin B12 TAB*] 1,000 mcg PO DAILY 05/26/19 [History Confirmed 05/26/19] Fenofibrate [Tricor 160 MG] 160 mg PO DAILY 05/26/19 [History Confirmed 05/26/19 ] Furosemide TAB* [Lasix TAB*] 40 mg PO DAILY 05/26/19 [History Confirmed 05/26/19 ] Glycopyrrolate/Formoterol (NF) [Bevespi Aerospere Inhaler] 2 puff INH BID [History Confirmed 05/26/19] Ibuprofen TAB* [Motrin TAB* 800 MG] 800 mg PO TID PRN 05/26/19 [History Confirmed 05/26/19] Isosorbide Mononitrate ER TAB* [Imdur ER TAB*] 60 mg PO DAILY 05/26/19 [History Confirmed 05/26/19] Lisinopril TAB* [Prinivil TAB*] 10 mg PO DAILY 05/26/19 [History Confirmed 05/26] amLODIPine TAB* [Norvasc 5 mg TAB*] 5 mg PO DAILY 05/26/19 [History Confirmed ] dilTIAZem HCl [Cartia Xt] 120 mg PO DAILY 05/26/19 [History Confirmed 05/26/19] traMADol TAB* [Ultram*] 50 mg PO Q4HR PRN 05/26/19 [History Confirmed 05/26/19] PMH/Surg Hx/FS Hx/Imm Hx Previously Healthy: Yes Endocrine/Hematology History: Reports: Hx Diabetes Denies: Hx Anticoagulant Therapy, Hx Blood Disorders, Hx Blood Transfusions, Hx Bone Marrow Disease, Hx Systemic Lupus Erythematosus, Hx Sickle Cell Disease , Hx Thyroid Disease, Hx Anemia, Hx Unexplained Bleeding Cardiovascular History: Reports: Hx Hypercholesterolemia, Hx Hypertension, Other Cardiovascular Problems/Disorders - DIABETIC Denies: Hx Aneurysm, Hx Angina, Hx Angioplasty, Hx Auto Implanted Cardiovert Defib, Hx Cardiac Arrest, Hx Cardiomegaly, Hx Congenital Heart Disease, Hx Congestive Heart Failure, Hx Coronary Artery Disease, Hx Deep Vein Thrombosis, Hx Pacemaker/ICD, Hx Peripheral Vascular Disease, Hx Rheumatic Fever, Hx Syncope , Hx Valvular Heart Disease Respiratory History: Reports: Hx Asthma, Hx Chronic Bronchitis, Hx Chronic Obstructive Pulmonary Disease (COPD), Hx Pneumonia, Hx Seasonal Allergies, Other Respiratory Problems/Disorders Denies: Hx Cystic Fibrosis, Hx Lung Cancer, Hx Pleural Effusion, Hx Pulmonary Edema, Hx Pulmonary Embolism, Hx Sleep Apnea GI History: Reports: Hx Diverticulosis, Hx Gastroesophageal Reflux Disease - ON MEDICATION FOR STATES CONTROLLED, Other GI Disorders - CHRONIC CONSTIPATION Denies: Hx Ulcer History: Denies: Hx Acute Renal Failure, Hx Benign Prostatic Hyperplasia, Hx Chronic Renal Failure, Hx Dialysis, Hx Kidney Infection, Hx Kidney Stones, Hx Renal Disease, Other Problems/Disorders Musculoskeletal History: Reports: Hx Arthritis, Hx Back Problems, Hx Bursitis, Hx Scoliosis, Hx Tendonitis, Other Musculoskeletal History - DEGENERATIVE DISC DISEASE Denies: Hx Rheumatoid Arthritis, Hx Congenital Bone Abnormalities, Hx Fibromyalgia, Hx Gout, Hx Orthopedic Injury, Hx Osteoporosis Sensory History: Reports: Hx Contacts or Glasses - GLASSES, Hx Hearing Problem Denies: Hx Cataracts, Hx Eye Injury, Hx Eye Prosthesis, Hx Glaucoma, Hx Macular Degeneration, Hx Vision Problem, Hx Deafness, Hx Hearing Aid, Other Sensory Impairments Opthamlomology History: Reports: Hx Contacts or Glasses - GLASSES Denies: Hx Cataracts, Hx Eye Injury, Hx Eye Prosthesis, Hx Glaucoma, Hx Macular Degeneration, Hx Vision Problem, Other Sensory Impairments Neurological History: Reports: Hx Headaches - reportedly d/t degenerative disc disease Denies: Hx Dementia Psychiatric History: Denies: Hx Anxiety, Hx Attention Deficit Hyperactivity Disorder, Hx Eating Disorder, Hx Depression, Hx Panic Disorder, Hx Post Traumatic Stress Disorder, Hx Inpatient Treatment, Hx Community Mental Health Tx, Hx Schizophrenia, Hx Bipolar Disorder, Hx Suicide Attempt, Hx Substance Abuse, Other Psychiatric Issues/Disorders - Cancer History Hx Chemotherapy: No Hx Radiation Therapy: No Hx Palliative Cancer Treatment: No - Surgical History Surgery Procedure, Year, and Place: TUBAL LIGATION in 1988. hole in ear closed. tonsils as a child. RIGHT ULNAR NERVE TRANSPOSITON 05/14 [facility]. left ulnar nerve surgery, tubal ligation, pancreatitis surgery 2018. ulnar nerve repair Hx Anesthesia Reactions: No - Immunization History Date of Tetanus Vaccine: Unk Date of Influenza Vaccine: fall 2017 Infectious Disease History: No Infectious Disease History: Reports: Hx of Known/Suspected MRSA, Hx Shingles - [id number], History Other Infectious Disease - influenza A Denies: Hx Clostridium Difficile, Hx Hepatitis, Hx Human Immunodeficiency Virus (HIV), Hx Tuberculosis, Traveled Outside the [place] in Last 30 Days - Family History Known Family History: Positive: Cardiac Disease, Hypertension, Diabetes, Respiratory Disease - asthma - Social History Alcohol Use: None Hx Substance Use: No Substance Use Type: Reports: None Hx Tobacco Use: No Smoking Status (MU): Never Smoked Tobacco Have You Smoked in the Last Year: No Review of Systems - ROS Summary Review of Systems Summary: Home Medications Medication Instructions Recorded Confirmed Type Montelukast Sodium TAB* [Singulair 10 mg PO QAM 03/24/13 05/26/19 History 10 MG TAB*] Pantoprazole TAB * [Protonix TAB*] 40 mg PO DAILY 04/26/18 05/26/19 History Albuterol HFA INHALER* [Ventolin 2 puff INH DAILY PRN 11/27/18 05/26/19 History HFA Inhaler*] Metoprolol Tartrate TAB* 25 tab PO BID 11/27/18 05/26/19 History [Lopressor TAB*] Budesonide Flexhaler 90 (NF) 1 puff INH BID 05/26/19 05/26/19 History [Pulmicort Flexhaler 90 mcg/act (NF)] Calcium Carbonate/Vitamin D3 1 each PO DAILY 05/26/19 05/26/19 History [Calcium 500 + Vit D Caplet] Cyanocobalamin TAB* [Vitamin B12 1,000 mcg PO DAILY 05/26/19 05/26/19 History TAB*] Fenofibrate [Tricor 160 MG] 160 mg PO DAILY 05/26/19 05/26/19 History Furosemide TAB* [Lasix TAB*] 40 mg PO DAILY 05/26/19 05/26/19 History Glycopyrrolate/Formoterol (NF) 2 puff INH BID 05/26/19 05/26/19 History [Bevespi Aerospere Inhaler] Ibuprofen TAB* [Motrin TAB* 800 MG] 800 mg PO TID PRN 05/26/19 05/26/19 History Isosorbide Mononitrate ER TAB* 60 mg PO DAILY 05/26/19 05/26/19 History [Imdur ER TAB*] Lisinopril TAB* [Prinivil TAB*] 10 mg PO DAILY 05/26/19 05/26/19 History Naproxen TAB* [Naprosyn 250 mg 250 mg PO BID 05/26/19 05/26/19 History TAB*] amLODIPine TAB* [Norvasc 5 mg TAB*] 5 mg PO DAILY 05/26/19 05/26/19 History dilTIAZem HCl [Cartia Xt] 120 mg PO DAILY 05/26/19 05/26/19 History traMADol TAB* [Ultram*] 50 mg PO Q4HR PRN 05/26/19 05/26/19 History Negative: Skin Diaphoresis Negative: Sore Throat Positive: Chest Pain - L lateral Negative: Shortness Of Breath Negative: Vomiting, Diarrhea, Nausea Positive: Other - L shoulder and L arm radiated pain Positive: Numbness - L arm All Other Systems Reviewed And Are Negative: Yes Physical Exam - Summary Physical Exam Summary: General: Well-developed, Well-nourished female. No acute distress. HEENT: Normocephalic, Atraumatic. Eyes: Conjuctiva normal, PERRL. Ears: TMs within normal limits. Nares: (-) discharge, (-) erythema. Oropharynx: Clear, mucous membranes moist, (-) exudates. Neck: Soft, FROM, (-) lymphadenopathy, (-) thyromegaly, (-) JVD. Cardiovascular: Normal sinus rhythm, (-) murmur. Lungs: Clear to auscultation bilaterally (-) wheezes, (-) rales, (-) rhonchi. Abdomen: Soft, non-tender, non-distended, (-) organomegaly, normal bowel sounds. Back: (-) CVA tenderness Extremities: No edema. Skin: Warm, dry, (-) rash. Neuro: Alert and oriented x3, no focal deficits. Psychiatric: Mood normal, affect normal. Triage Information Reviewed: Yes Vital Signs On Initial Exam: Initial Vitals Temp Pulse Resp BP Pulse Ox 97.5 F 64 18 145/85 96 05/26/19 21:59 05/26/19 21:59 05/26/19 21:59 05/26/19 21:59 05/26/19 21:59 Vital Signs Reviewed: Yes Procedures - Sedation Patient Received Moderate/Deep Sedation with Procedure: No Diagnostics - Vital Signs Vital Signs Temp Pulse Resp BP Pulse Ox 05/26/19 21:59 97.5 F 64 18 145/85 96 - Laboratory Lab Results: Lab Results 05/26/19 Range/Units 22:22 WBC 4.9 (3.5-10.8) 10^3/uL RBC 4.72 (3.70-4.87) 10^6 /uL Hgb 13.7 (12.0-16.0) g/dL Hct 41 (35-47) % MCV 87 (80-97) fL MCH 29 (27-31) pg MCHC 33 (31-36) g/dL RDW 15 (10-15) % Plt Count 124 L (150-450) 10^3/uL MPV 10.0 (7.4-10.4) fL Neut % (Auto) 61.5 % Lymph % (Auto) 25.7 % Anson % (Auto) 8.5 % Eos % (Auto) 3.6 % Baso % (Auto) 0.7 % Absolute Neuts (auto) 3.0 (1.5-7.7) 10^3/ul Absolute Lymphs (auto) 1.2 (1.0-4.8) 10^3/ul Absolute Monos (auto) 0.4 (0-0.8) 10^3/ul Absolute Eos (auto) 0.2 (0-0.6) 10^3/ul Absolute Basos (auto) 0.0 (0-0.2) 10^3/ul Absolute Nucleated RBC 0.0 10^3/ul Nucleated RBC % 0.0 Result Diagrams: 05/26/19 22:22 05/26/19 22:22 Lab Statement: Any lab studies that have been ordered have been reviewed, and results considered in the medical decision making process. - Radiology CXR Radiology Interpretation Completed By: ED Physician Summary of Radiographic Findings: No acute processes, no PNA or pleural effusions. Pending offical review. - EKG 2220 Cardiac Rate: NL - 74 BPM EKG Rhythm: Sinus Rhythm ST Segment: Normal Ectopy: None EKG Comparison: No Significant Change Summary of EKG Findings: EKG at 2220 reveals normal sinus rhythm with rate of 74 BPM, no acute changes, no ischemic changes. This EKG was reviewed and interpreted by Dr. Chua at 05/26/19. Re-Evaluation - Re-Evaluation First Eval Re-Evaluation Time: 02:08 Change: Improved Comment: second troponin 0.00. plan to d/c patient Chest Pain Course/Dx - Course Course Of Treatment: 59-year-old female presents from urgent care by ambulance for left-sided chest and shoulder pain. Patient received Toradol for discomfort. He had a negative workup including serial troponins although nondiagnostic. Patient discharged home. Patient became very agitated upon discharge. Unclear as to why. She states she wasn't here for her heart. We didn't do anything she wanted. Patient vague with her complaints. I asked her what she wanted us to do differently and she did not answer. Patient discharged home. Follow with PCP. Follow-up sooner for any worsening symptoms. - Diagnoses Provider Diagnoses: Left shoulder pain Discharge ED - Sign-Out/Discharge Documenting (check all that apply): Patient Departure - Discharge - Discharge Plan Condition: Stable Disposition: HOME Patient Education Materials: Shoulder Pain (ED) Referrals: Alexandro Roca NP [Primary Care Provider] - 3 Days Additional Instructions: Use Tylenol for the pain. Apply ice or heat to the area. Please follow up with your primary care physician within 3 days. Please return to Emergency Department for any new or worsening symptoms. - Billing Disposition and Condition Condition: STABLE Disposition: Home - Attestation Statements Document Initiated by Jacky: Yes Documenting Scribe: Sukhwinder Bellamy Provider For Whom Jacky is Documenting (Include Credential): Akanksha Chua MD Scribe Attestation: ISukhwinder, scribed for Akanksha Chua MD on 05/27/19 at 0518. Scribe Documentation Reviewed: Yes Provider Attestation: The documentation as recorded by the Sukhwinder pettit accurately reflects the service I personally performed and the decisions made by me, Akanksha Chua MD Status of Scribe Document: Viewed
[2019-05-26 22:44] LABS: Albumin 4.2 g/dL (3.2-5.2); Albumin/Globulin Ratio 1.6 (1-3); BUN/Creatinine Ratio 21.5 (8-20); Calcium 9.3 mg/dL (8.6-10.3); EGFR African American 74.9 (>60); EGFR Non-African American 61.9 (>60); Globulin 2.7 g/dL (2-4); Potassium 3.9 mmol/L (3.5-5.0); Total Bilirubin 0.3 mg/dL (0.2-1.0); Total Protein 6.9 g/dL (6.4-8.9)
[2019-05-26] MEDS ORDERED: Ketorolac INJ* 30 MG/ML 1 ML VIAL IV PUSH ONE (23:42)
== END 2019-05-27 02:17 | disposition home or self-care (01) ==
LOC: ED 21:53
DX: M25.512 Pain in left shoulder (principal); R94.31 Abnormal electrocardiogram [ECG] [EKG]; I10 Essential (primary) hypertension; E11.9 Type 2 diabetes mellitus without complications; E78.00 Pure hypercholesterolemia, unspecified; J44.9 Chronic obstructive pulmonary disease, unspecified; K21.9 Gastro-esophageal reflux disease without esophagitis; M19.90 Unspecified osteoarthritis, unspecified site; Z87.01 Personal history of pneumonia (recurrent); Z88.1 Allergy status to other antibiotic agents; Z88.8 Allergy status to other drugs, medicaments and biological substances; Z88.5 Allergy status to narcotic agent; Z79.899 Other long term (current) drug therapy
CPT/HCPCS: 36415; 71045; 80053; 83605; 83880; 84484; 85025; 85610; 93005; 96374; 99283; J1885

== ENCOUNTER 2019-05-31 07:22 | Emergency (ER) | payer MEDICARE, MEDICAID ==
[2019-05-31 07:33] VITALS: BP 140/78
--- NOTE | 2019-05-31 08:15 | UC ---
Shoulder Pain HPI - HPI Summary HPI Summary: 59 yo female with left shoulder pain (scapular) x 5-6 days She is convinced she injured it lifting now with painful rash see a few days ago in ED for r/o [place] - History of Current Complaint Chief Complaint: UCUpperExtremity Stated Complaint: SHOULDER COMPLAINT Time Seen by Provider: 05/31/19 07:58 Hx Obtained From: Patient Onset/Duration: Sudden Onset Timing: Constant Severity Initially: Mild Severity Currently: Severe Location Of Pain: Is Discrete @ Pain Intensity: 10 Pain Scale Used: 0-10 Numeric Character: Sharp Aggravating Factor(s): Movement Alleviating Factor(s): OTC Meds Associated Signs And Symptoms: Positive: Negative - Allergies/Home Medications Allergies/Adverse Reactions: Allergies Allergy/AdvReac Type Severity Reaction Status Date / Time Adhesive Tape Allergy Mild Rash Verified 05/26/19 22:02 amoxicillin [From Augmentin] Allergy Rash Verified 05/26/19 22:02 azithromycin Allergy Rash And Verified 05/26/19 22:02 Itching clavulanic acid Allergy Rash Verified 05/26/19 22:02 [From Augmentin] moxifloxacin [From Avelox] Allergy Rash Verified 05/26/19 22:02 tapentadol [From Nucynta] Allergy Rash Verified 05/26/19 22:02 tolmetin [From Tolectin] Allergy Rash Verified 05/26/19 22:02 valdecoxib [From Bextra] Allergy Rash Verified 05/26/19 22:02 morphine AdvReac Difficulty Verified 05/26/19 22:02 Breathing PERFUMES Allergy Severe DYSPNEA Uncoded 05/26/19 20:37 PMH/Surg Hx/FS Hx/Imm Hx Endocrine History: Diabetes, Dyslipidemia Cardiovascular History: Hypertension Other History Of: Negative For: Anticoagulant Therapy - Surgical History Surgical History: Yes Surgery Procedure, Year, and Place: pancreas 2019 TUBAL LIGATION in 1988. hole in ear closed. tonsils as a child. RIGHT ULNAR NERVE TRANSPOSITON 05/14 [facility]. left ulnar nerve surgery, tubal ligation, pancreatitis surgery 2018. ulnar nerve repair - Family History Known Family History: Positive: Cardiac Disease, Hypertension, Diabetes, Respiratory Disease - asthma - Social History Alcohol Use: None Substance Use Type: None Smoking Status (MU): Never Smoked Tobacco Have You Smoked in the Last Year: No - Immunization History Most Recent Influenza Vaccination: fall 2017 Most Recent Tetanus Shot: unknown Most Recent Pneumonia Vaccination: within 5 years Review of Systems All Other Systems Reviewed And Are Negative: Yes Constitutional: Positive: Negative Skin: Positive: Rash Eyes: Positive: Negative ENT: Positive: Negative Respiratory: Positive: Negative Cardiovascular: Positive: Negative Gastrointestinal: Positive: Negative Genitourinary: Positive: Negative Motor: Positive: Negative Neurovascular: Positive: Negative Musculoskeletal: Positive: Arthralgia Neurological: Positive: Negative Psychological: Positive: Negative Physical Exam Triage Information Reviewed: Yes Appearance: Well-Appearing, No Pain Distress, Well-Nourished Vital Signs: Initial Vital Signs Temp 98.7 F 05/31/19 07:27 Pulse 91 05/31/19 07:27 Resp 18 05/31/19 07:27 BP 140/78 05/31/19 07:27 Pulse Ox 100 05/31/19 07:27 Vital Signs Reviewed: Yes Eyes: Positive: Conjunctiva Clear ENT: Positive: Hearing grossly normal. Negative: Nasal congestion, Nasal drainage, Tonsillar swelling, Tonsillar exudate, Muffled voice, Hoarse voice Dental Exam: Normal Neck: Positive: Supple, Nontender, No Lymphadenopathy Respiratory: Positive: Lungs clear, Normal breath sounds, No respiratory distress Cardiovascular: Positive: RRR, No Murmur Musculoskeletal: Positive: ROM Intact, No Edema Neurological: Positive: Alert Psychological Exam: Normal Skin Exam: Other - vesicular rash over left scapula Shoulder Course/Dx - Differential Dx/Diagnosis Provider Diagnosis: Shingles, DJD of left AC (acromioclavicular) joint Discharge ED - Sign-Out/Discharge Documenting (check all that apply): Patient Departure All imaging exams completed and their final reports reviewed: Yes - Discharge Plan Condition: Stable Disposition: HOME Prescriptions: Famciclovir(NF) [Famvir(NF)] 500 mg PO TID #21 tab Patient Education Materials: Osteoarthritis (ED), Shingles (ED) Referrals: Alexandro Roca NP [Primary Care Provider] - 5 Days - Billing Disposition and Condition Condition: STABLE Disposition: Home
== END 2019-05-31 09:08 | disposition home or self-care (01) ==
LOC: UCEAST 07:22
DX: M19.012 Primary osteoarthritis, left shoulder (principal); B02.9 Zoster without complications; E11.9 Type 2 diabetes mellitus without complications; I10 Essential (primary) hypertension; Z91.09 Other allergy status, other than to drugs and biological substances; Z88.0 Allergy status to penicillin; Z88.6 Allergy status to analgesic agent; Z88.1 Allergy status to other antibiotic agents; Z88.5 Allergy status to narcotic agent
CPT/HCPCS: 99212; G0463

== ENCOUNTER 2019-09-08 18:22 | Emergency (ER) | payer MEDICARE, MEDICAID ==
--- OUTSIDE RECORDS SUMMARY | 2019-09-08 18:28 | XMS REPORT | Continuity of Care Document ---
:1960 External Reference #:[id number] Author Name Norah Olmedo M.D. (transmitted by agent of provider Martha Amezcua) Address [address] [place] [id number] Care Team Providers Name Role Phone RevaNithya ramsey FNP - Nurse Care Team Information Fish Roe Technician [phone] Practitioner Robert Ortega MD - Hospitalist Care Team Information Fish Roe Technician [phone] Nancie Egan MD - Internal Care Team Information Fish Roe Technician [phone] Medicine Problems Active Problems Provider Date Asthma [...] presumed cause; no discharge summary in the [facility] database Localized, primary osteoarthritis Norah Olmedo M.D. Onset: 06/10/2019 Social History Type Date Description Comments Sex Unknown Tobacco Use Start: Unknown Never Smoked Cigarettes Smoking Status Reviewed: 08/24/19 Never Smoked Cigarettes ETOH Use Denies alcohol [...] Medications SIG Qnty Indications Ordering Date Provider Fluticasone Shake Liquid And 48units J01.90 Maryann Elliott, 07/28/2019 Propionate Use 2 Sprays In N.P. 50mcg/Act Each Nostril Daily Suspension as Needed Gabapentin 1 by mouth twice a 60caps B02.9 Alxeandro Roca NP 06/08/2019 300mg day Capsules Quad Cane use while 1units M25.561 Alexandro Roca NP 06/08/2019 ambulating M25.562 M85.80 Calcium 600/Vitamin D3 1 by mouth twice 60tabs M85.80 Alexandro Roca NP 05/25 daily [id number] Tablets Naproxen 1 tablet with food 60tabs M25.561 Alexandro Roca NP 05/25/2019 500mg Tablets by mouth twice a day Tramadol HCL 1-2 tablets every 8 42tabs M25.561 Alexandro Roca NP 05/25/2019 50mg Tablets hours as needed for pain. Depend Underwear change three times 90units R32 Alexandro Roca NP 04/21/2019 Small/Medium Extra daily as needed Absorbency Female Misc Montelukast Sodium take 1 tablet by 90tabs [...] 180caps I10 Tracie Mills, 07/08/2018 120mg Caps ER N.P. 24HR Blood Pressure Monitor check bp three times 1units I10 Alexandro Roca NP 10/2017 Auto Inflate weekly at home [facility] Freestyle Lite Blood for blood glucose 1units E11.9 Robert Ortega MD 2017 Glucose Monitoring monitoring once System daily for diabetes Device mellitus Blood Pressure Kit check twice a day 1units R55 Robert Ortega MD 06/09/2018 Kit for hypertension and record in a log book Pulmicort Flexhaler inhale one puff by 3mandi J45.909 Marcia 04/09/2018 mouth twice a day MARC Stanley 90mcg/Act Aerosol Ra Vitamin B-12 TR take 1 tablet by 90tabs Alexandro Roca NP mouth once daily 1000mcg Tablets ER Metoprolol Tartrate take 1 tablet by 180tabs Alexandro Roca NP 25mg mouth twice a day Tablets Furosemide take 1 tablet by 90tabs Alexandro Roca NP 40mg Tablets mouth as directed for 3 days then if needed for ... (refer to prescription notes). Amlodipine Besylate take 1 tablet by 90tabs Alexandro Roca NP 5mg mouth once daily Tablets Bevespi Aerosphere 2 puffs inhalation 17.7gm Marcia twice daily. MARC Stanley 9-4.8mcg/Act Aerosol Isosorbide Mononitrate 1 by mouth every day 90tabs Alexandro Roca NP ER 60mg Tablets ER 24HR Fenofibrate 1 by mouth every day 90tabs Alexandro Roca NP 160mg Tablets Pantoprazole Sodium take 1 tablet by 90tabs Alexandro Roca NP 40mg mouth once daily Tablets DR Ventolin HFA 2 puffs by mouth 1units Alexandro Roca NP 108(90Base) four times a day as mcg/Act Aerosol needed Ipratropium 1 vial in nebulizer 90ml Marcia [place]/Albuterol every 4-6 hours as MARC Stanley Sulfate needed for asthma 0.5-2.5(3)mg/3ML Solution Epipen 2-Gulshan use as directed 1units Unknown 0.3mg/0.3ML Solution Auto-Inject Albuterol Sulfate 1 vial via nebulizer 75ml J44.9 Alexandro Roca NP 4 times daily as (2.5mg/3ML) 0.083% needed Nebulizer History Medications Doxycycline Hyclate 1 by mouth twice 20tabs J01.90 Maryann Elliott, 2018 - a day x 10 days N.P. 08/07/2019 100mg Tablets Hydrocodone 1-2 tabs by 42tabs B02.9 Alexandro Roca NP 06/08/2019 - Bitartrate/Acetamin mouth every 8 06/15/2019 ophen hours as needed. 5-325mg Tablets Lidocaine 3 patches to 90units B02.9 Alexandro Roca NP 06/08/2019 - 5% affected areas 06/22/2019 Patches 12 hours on and 12 hours. Cane Tips//4" Quad M25.561 Alexandro Roca NP 05/25/2019 - Non-Suction 06/08/2019 M25.562 M85.80 Medications Administered in Office Medication SIG Qnty Indications Ordering Provider Date Synvisc Or Synvisc-One Norah Olmedo M.D. 08/24/2019 Injection 1 MG Injection Synvisc Or Synvisc-One Norah Olmedo M.D. 08/24/2019 Injection 1 MG Injection Synvisc Or Synvisc-One Norah lOmedo M.D. 08/17/2019 Injection 1 MG Injection Synvisc Or Synvisc-One Norah Olmedo M.D. 08/17/2019 Injection 1 MG Injection Depomedrol 40MG Norah Olmedo M.D. 06/10/2019 Injection Depomedrol 40MG Norah Olmedo M.D. 06/10/2019 Injection Inj, Regadenoson, 0.1 MG Jason Newell, DO [facility] 05/27/2018 Injection Technetium TC 99M Jason Newell DO [facility] 05/27/2018 Tetrofosmin, Per Unit Dose Up To 40 Millicuries Injection Depomedrol 80MG Marcelo Gamboa M.D. 05/06/2014 Injection Immunizations CPT Code Status Date Vaccine Reaction Lot # [id number] Given 05/25/2019 Influenza Virus Vaccine, No immediate reaction [id number] Quadrivalent ([id number]), Derived From Cell 77219 Given 07/01/2018 Influenza Virus Vaccine, [id number] Quadrivalent, Split, Preservative Free [id number] Given 05/07/2016 Influenza Virus 3Yrs & Over Vital Signs Date Vital Result Comment 08/24/2019 1:02pm Height 61 inches 5'1" Weight 135.00 lb Heart Rate 74 /min BP Systolic 130 mmHg BP Diastolic 72 mmHg Body Temperature 97.3 F Pain Level 7 BMI (Body Mass Index) 25.5 kg/m2 08/17/2019 10:53am Height 61 inches 5'1" Weight 135.00 lb Heart Rate 60 /min BP Systolic 120 mmHg BP Diastolic 62 mmHg Respiratory Rate 18 /min Pain Level 8 BMI (Body Mass Index) 25.5 kg/m2 Results Test Acquired Date Facility Test Result H/L Range Note Laboratory test 05/27/2019 [facility] Troponin-I 0.00 ng/mL < 0.[address] (TnI) [place] [address] [phone] Laboratory test 05/27/2019 [facility] Lactic Acid 1.5 mmol/L Normal 0.5-2.[address] [place] [address] [phone] CBC Auto Diff 05/26/2019 [facility] White Blood 4.9 10^3/uL Normal 3.5-10.[address] [place] [address] [phone] Red Blood Count 4.72 10^6/uL Normal 3.70-4.87 Hemoglobin 13.7 g/dL Normal 12.0-16.0 Hematocrit 41 % Normal 35-47 Mean Corpuscular Volume 87 fL Normal 80-97 Mean Corpuscular Hemoglobin 29 pg Normal 27-31 Mean Corpuscular HGB Conc 33 g/dL Normal 31-36 Red Cell Distribution Width 15 % Normal 10-15 Platelet Count 124 10^3/uL Low 150-450 Mean Platelet Volume 10.0 fL Normal 7.4-10.4 Abs Neutrophils 3.0 10^3/uL Normal 1.5-7.7 Abs Lymphocytes 1.2 10^3/uL Normal 1.0-4.8 Abs Monocytes 0.4 10^3/uL Normal 0-0.8 Abs Eosinophils 0.2 10^3/uL Normal 0-0.6 Abs Basophils 0.0 10^3/uL Normal 0-0.2 Abs Nucleated RBC 0.0 10^3/uL Granulocyte % 61.5 % Lymphocyte % 25.7 % Monocyte % 8.5 % Eosinophil % 3.6 % Basophil % 0.7 % Nucleated Red Blood Cells % 0.0 Inr/Protime 05/26/2019 [facility] Inr 0.95 Normal 0.82-1.09 3 [address] [place] [address] [phone] Comp Metabolic 05/26/2019 [facility] Sodium 139 mmol/L Normal 135-145 Panel [address] [place] [address] [phone] Potassium 3.9 mmol/L Normal 3.5-5.0 Chloride 106 mmol/L Normal 101-111 Co2 Carbon Dioxide 25 mmol/L Normal 22-32 Anion Gap 8 mmol/L Normal 2-11 Glucose 258 mg/dL High 70-100 Blood Urea Nitrogen 20 mg/dL Normal 6-24 Creatinine 0.93 mg/dL Normal 0.51-0.95 BUN/Creatinine Ratio 21.5 High 8-20 Calcium 9.3 mg/dL Normal 8.6-10.3 Total Protein 6.9 g/dL Normal 6.4-8.9 Albumin 4.2 g/dL Normal 3.2-5.2 Globulin 2.7 g/dL Normal 2-4 Albumin/Globulin Ratio 1.6 Normal 1-3 Total Bilirubin 0.30 mg/dL Normal 0.2-1.0 Alkaline Phosphatase 70 U/L Normal 34-104 Alt 12 U/L Normal 7-52 Ast 15 U/L Normal 13-39 Egfr Non- 61.9 >60 Egfr 74.9 >60 4 Laboratory test 05/26/2019 [facility] Troponin-I (TnI) 0.00 ng/ mL <0.04 5 finding [address] [place] [address] [phone] B-Type Natriuretic Peptide BNP 50 pg/mL <=100 Lactic Acid 2.1 mmol/L Critical high 0.5-2.0 6 Urine Culture And 05/12/2019 [facility] Urine Culture SEE RESULT [address] [place] [address] [phone] Laboratory test 04/21/2019 [facility] Hemoglobin A1c 6.5 % High 4.0- [address] (Glyco HGB) 5.6 [place] [address] [phone] CBC Auto Diff 04/21/2019 [facility] White Blood 5.9 Normal 3.5 - [address] Count 10^3/uL 10.8 [place] [address] [phone] Red Blood Count 4.70 10^6/uL Normal 3.70-4.87 [...] % 0.1 Iron & Iron Binding 04/21/2019 [facility] Iron 70 g/dL Normal 50-[address] [place] [address] [phone] Unsaturated Iron Binding < 278 g/dL Total Iron Binding Capacity 293 g/dL Normal 250-450 Transferrin 209 mg/dL Normal 203-362 % Iron Saturation 24 % Normal 15-55 Urine Culture And 04/21/2019 [facility] Urine SEE RESULT [address] [place] [address] [phone] Laboratory test 04/21/2019 [facility] Vitamin B12 326 pg/mL Normal 180- [address] [place] [address] [phone] Comp Metabolic 04/21/2019 [facility] Sodium 142 mmol/L Normal 135- Panel [address] [place] [address] [phone] Potassium 4.2 mmol/L Normal 3.5-5.0 Chloride 106 [...] Egfr Non- 72.9 >60 Egfr 88.2 >60 11 Lipid Profile 04/21/2019 [facility] Triglycerides 161 mg/dL 12 (Trig/Chol/HDL) [address] [place] [address] [phone] Cholesterol 166 mg/dL 13 HDL Cholesterol 46.7 mg/dL 14 LDL Cholesterol 87 mg/dL 15 1 Troponin-I testing on Plasma Separator Tubes (PST) has a known false positive rate of 0.20-0.40%. All positive troponins reflex immediately to secondary confirmatory testing. Using the IncreaseCard DxI 800 Access Immunoassay systems, the 99th percentile upper reference limit was demonstrated to be < 0.03 ng/mL. 2 [facility] Severe Sepsis and Septic Shock Management Bundle Measure requires all lactic acids initially measuring >2.0 mmol/L be repeated. 3 Standard intensity warfarin therapeutic range: 2.0-3.0 High intensity warfarin therapeutic range: 2.5-3.5 4 Because ethnic data is not always [...] 15-29 5 Kidney failure <15 (or dialysis) 5 Troponin-I testing on Plasma Separator Tubes (PST) has a known false positive rate of 0.20-0.40%. All positive troponins reflex immediately to secondary confirmatory testing. Using the IncreaseCard DxI 800 Access Immunoassay systems, the 99th percentile upper reference limit was demonstrated to be < 0.03 ng/mL. 6 Critical Result LACT:2.1 Called to YAZAN at: 22:56:42 by:[id number] Read back by:YAZAN [facility] Severe Sepsis and Septic Shock Management Bundle Measure requires all lactic acids initially measuring >2.0 mmol/L be repeated. 7 SEE RESULT BELOW Name: ZHOUMARIE I : [address]: Alexandro Roca NP Acct: [id number] Unit: [id number] AGE: 59 Location: [facility] Re05/12/19 SEX: F Status: REG REF SPEC: [id number] JOSEPHINE: 05/12/[address]: Alexandro Roca NP REQ: [id number] RECD: 05/12/19 STATUS: COMP _ SOURCE: URINE SPDESC: ORDERED: Urine Culture Procedure Result Reported Site Urine Culture Final 05/13/19- 1042 ML No growth of clinically significant organisms * ML - Main Lab . END OF REPORT DEPARTMENT OF PATHOLOGY, [address] [place] [address] Lj Bravo M.D. Director [facility] # [id number] Therapeutic target for the treatment of diabetes mellitus patients is <7% HBA1C, and in selective patients <6.0%. Please refer to [place] [employer] diabetic care guidelines for further information. 9 SEE RESULT BELOW Name: MARIE ZHOU Ryan : [address]: Alexandro Roca NP Acct: [id number] Unit: [id number] AGE: 59 Location: [facility] Re04/21/19 SEX: F Status: REG REF SPEC: [id number] JOSEPHINE: 04/21/19-12[address] [facility] [address]: Alexandro Roca NP REQ: [id number] RECD: 04/21/19-1314 STATUS: COMP _ SOURCE: URINE SPDESC: ORDERED: Urine Culture COMMENTS: FASTING 10 HOUR Procedure Result Reported Site Urine Culture Final 04/23/19- 0837 ML Mixed robbi; possible contamination. Suggest resubmission. * ML - Main Lab . END OF REPORT DEPARTMENT OF PATHOLOGY, [address] [place] [address] Lj Bravo M.D. Director [facility] # [id number] 10 Normal Range 180 to 914 Indeterminate Range 145 to 180 Deficient Range <145 11 Because ethnic data is not always readily [...] 15-29 5 Kidney failure <15 (or dialysis) 12 Desirable: <150 Borderline High: 150-199 High: 200-499 Very High: >500 13 Desirable: <200 Borderline High: 200-239 High: >239 14 Low: <40 Desirable: 40-60 High: >60 15 Desirable: <100 Near Optimal: 100-129 Borderline High: 130-159 High: 160-189 Very High: >189 Procedures Date Code Description Status 08/24/2019 Inject/Drain Joint/Bursa Major W/O US Completed 08/24/2019 Inject/Drain Joint/Bursa Major W/O US Completed 08/17/2019 Inject/Drain Joint/Bursa Major W/O US Completed 08/17/2019 Inject/Drain Joint/Bursa Major W/O US Completed 06/10/2019 Inject/Drain Joint/Bursa Major W/O US Completed 09/19/2018 [id number] Colonoscopy Completed 09/09/2018 [id number] Mammogram Completed 02/17/2013 [id number] Colonoscopy Completed Medical Devices Description No Information Available Encounters Type Date Location Provider Dx Diagnosis Office Visit 07/28/2019 [facility] Internal Maryann Elliott, J01.90 Acute sinusitis , 3:00p Medicine - [facility] N.P. unspecified Office Visit 07/10/2019 [facility] Norah Olmedo, M25.561 Pain in right knee 9:15a at [facility].D. M25.562 Pain in left knee M25.462 Effusion, left knee M25.461 Effusion, right knee M17.0 Bilateral primary osteoarthritis of knee Office Visit 06/17/2019 2:00p [facility] Qutaybeh S. I10 Sandeep Calderón M.D. (primary) hypertension E78.5 Hyperlipidemia, unspecified Office Visit 06/10/2019 8:00a [facility] Norah Olmedo M25.562 Pain in left at [facility].D. knee M25.561 Pain in right knee M25.462 Effusion, left knee M25.461 Effusion, right knee M17.0 Bilateral primary osteoarthritis of knee Office Visit 06/08/2019 2:00p [facility] Internal Alexandro Roca, B02.9 Zoster without Medicine - LYE TREATER complications [facility] Office Visit 05/25/2019 4:20p [facility] Internal Alexandro Roca M25.562 Pain in left knee Medicine - LYE TREATER [facility] M25.561 Pain in right knee M85.80 Oth disrd of bone density and structure, unspecified site Z23 Encounter for immunization Office Visit 05/21/2019 [facility] J45.909 Unspecified 11:00a [facility], MARC asthma, Steam [employer] uncomplicated J44.9 Chronic obstructive pulmonary disease, unspecified Office Visit 04/21/2019 11:40a [facility] Internal Alexandro Abelino, I10 Essential ( primary) Medicine - [facility] LYE TREATER hypertension E78.5 Hyperlipidemia, unspecified D64.9 Anemia, unspecified R73.9 Hyperglycemia, unspecified R32 Unspecified urinary incontinence M25.552 Pain in left hip Assessments Date Code Description Provider 08/24/2019 M25.562 Pain in left knee Norahliat Olmedo, M.DCristian 08/24/2019 M25.462 Effusion, left knee Norah Olmedo M.D. 08/24/2019 M25.461 Effusion, right knee Ford NoriegaDCristian 08/24/2019 M25.561 Pain in right knee Jared Noriega.DCristian 08/24/2019 M17.0 Bilateral primary osteoarthritis of Norah Olmedo M.D. knee 08/17/2019 M25.562 Pain in left knee Norahliat Olmedo M.DCristian 08/17/2019 M25.462 Effusion, left knee Norah Olmedo M.D. 08/17/2019 M25.461 Effusion, right knee Jared Noriega.DCristian 08/17/2019 M17.0 Bilateral primary osteoarthritis of Norah Olmedo M.D. knee 08/17/2019 M25.561 Pain in right knee Norah Olmedo M.D. 07/28/2019 J01.90 Acute sinusitis, unspecified Maryann Elliott, N.P. 07/10/2019 M25.561 Pain in right knee Jared Noriega.Eusebio 07/10/2019 M25.562 Pain in left knee Jared Noriega.DCristian 07/10/2019 M25.462 Effusion, left knee Ford NoriegaDCristian 07/10/2019 M25.461 Effusion, right knee Norah Olmedo M.D. 07/10/2019 M17.0 Bilateral primary osteoarthritis of Norah Olmedo M.D. knee 06/17/2019 I10 Essential (primary) hypertension Jessica Calderón M.D. 06/17/2019 E78.5 Hyperlipidemia, unspecified Jessica Calderón M.D. 06/10/2019 M25.562 Pain in left knee Norah Olmedo M.D. 06/10/2019 M25.561 Pain in right knee Norah Olmedo M.D. 06/10/2019 M25.462 Effusion, left knee Norah Olmedo M.D. 06/10/2019 M25.461 Effusion, right knee Norah Olmedo M.D. 06/10/2019 M17.0 Bilateral primary osteoarthritis of Norah Olmedo M.D. knee 06/08/2019 B02.9 Zoster without complications Alexandro Roca NP 05/25/2019 M25.562 Pain in left knee Alexandro Roca NP 05/25/2019 M25.561 Pain in right knee Alexandro Roca NP 05/25/2019 M85.80 Other specified disorders of bone Alexandro Roca NP density and structure, unspecified site 05/25/2019 Z23 Encounter for immunization Alexandro Roca NP 05/21/2019 J45.909 Unspecified asthma, uncomplicated Marcia Stanley NP 05/21/2019 J44.9 Chronic obstructive pulmonary disease, Marcia Stanley NP unspecified 04/21/2019 I10 Essential (primary) hypertension Alexandro Roca NP 04/21/2019 E78.5 Hyperlipidemia, unspecified Alexandrojuancarlos Roca NP 04/21/2019 D64.9 Anemia, unspecified Alexandrojuancarlos Roca, MARC 04/21/2019 R73.9 Hyperglycemia, unspecified Alexandrojuancarlos Roca, LYE TREATER 04/21/2019 R32 Unspecified urinary incontinence Alexandro Roca NP 04/21/2019 M25.552 Pain in left hip Alexandro Roca NP Plan of Treatment Future Appointment(s):09/15/2019 11:15 am - Андрей Fisher M.D. at [facility] at Yvedcp6008/31/2019 11:15 am - Norah Olmedo M.D. at [facility] at [id number]/19/2019 8:40 am - Alexandro Roca NP at [facility] Internal Medicine - Ccmob11/19/2019 8:30 am - Marcia Stanley NP at [facility]08/24/2019 - Norah Olmedo M.D.M25.562 Pain in left kneeFollow up:Follow up: 1 weekM25.462 Effusion, left kneeM25.461 Effusion, right kneeM25.561 Pain in right kneeM17.0 Bilateral primary osteoarthritis of knee Functional Status Description No Information Available Mental Status Description No Information Available Referrals Refer to Reason for Referral Status Appt Date Norah Olmedo MD Sent 06/10/[address] [place], [place] [id number] [phone]
--- OUTSIDE RECORDS SUMMARY | 2019-09-08 18:28 | XMS REPORT | Continuity of Care Document ---
:1960 External Reference #:[id number] Author Name Norah Olmedo M.D. (transmitted by agent of provider Martha Amezcua) Address [address] [place] [id number] Care Team Providers Name Role Phone RevaNithya ramsey FNP - Nurse Care Team Information Jack Strip Assembler [phone] Practitioner Robert Ortega MD - Hospitalist Care Team Information Jack Strip Assembler [phone] Nancie Egan MD - Internal Care Team Information Jack Strip Assembler [phone] Medicine Problems Active Problems Provider Date Asthma [...] cause; no discharge summary in the [facility] database Localized, primary osteoarthritis Norah Olmedo M.D. Onset: 06/10/2019 Social History Type Date Description Comments Sex Unknown Tobacco Use Start: Unknown Never Smoked Cigarettes Smoking Status Reviewed: 08/31/19 Never Smoked Cigarettes ETOH Use Denies alcohol [...] 1 by mouth twice a 60caps B02.9 Alexandro Roca NP 06/08/2019 300mg day Capsules Quad Cane use while 1units M25.561 Alexandro Roca NP 06/08/2019 ambulating M25.562 M85.80 Calcium 600/Vitamin D3 1 by mouth twice 60tabs M85.80 Alexandro Roca NP 05/25 daily [id number] Tablets Naproxen 1 tablet with food 60tabs [...] NP 10/2017 Auto Inflate weekly at home [facility] Freestyle Lite Blood for blood glucose 1units [...] Ipratropium 1 vial in nebulizer 90ml Marcia Henderson/Albuterol every 4-6 hours as MARC Stanley Sulfate [...] Olmedo M.D. 08/17/2019 Injection 1 MG Injection Synvisc Or Synvisc-One Norah Olmedo M.D. 08/17/2019 Injection 1 MG Injection Depomedrol 40MG Norah Olmedo M.D. 06/10/2019 Injection Depomedrol 40MG Norah Olmedo M.D. 06/10/2019 Injection Inj, Regadenoson, 0.1 MG Jason Newell, DO [facility] 05/27/2018 Injection Technetium TC 99M Jason Newell DO [facility] 05/27/2018 Tetrofosmin, Per Unit Dose Up To 40 Millicuries Injection Depomedrol 80MG Marcelo Gamboa M.D. 05/06/2014 Injection Immunizations CPT Code Status Date Vaccine Reaction Lot # [id number] Given 05/25/2019 Influenza Virus Vaccine, No immediate reaction [id number] Quadrivalent ([id number]), Derived From Cell 45752 Given 07/01/2018 Influenza Virus Vaccine, [id number] Quadrivalent, Split, Preservative Free 48982 Given 05/07/2016 Influenza Virus 3Yrs & Over Vital Signs Date Vital Result Comment 08/31/2019 11:22am Height 61 inches 5'1" Weight 135.00 lb Heart Rate 77 /min BP Systolic 104 mmHg BP Diastolic 58 mmHg Body Temperature 98.1 F Pain Level 5 BMI (Body Mass Index) 25.5 kg/m2 08/24/2019 1:02pm Height 61 inches 5'1" Weight 135.00 lb Heart Rate 74 /min BP Systolic 130 mmHg BP Diastolic 72 mmHg Body Temperature 97.3 F Pain Level 7 BMI (Body Mass Index) 25.5 kg/m2 Results Test Acquired Date Facility Test Result H/L Range Note Laboratory test 05/27/2019 [facility] Troponin-I 0.00 ng/mL < 0.[address] (TnI) [place] [address] [phone] Laboratory test 05/27/2019 [facility] Lactic Acid 1.5 mmol/L Normal 0.5-2.[address] [place] [address] [phone] CBC Auto Diff 05/26/2019 [facility] White Blood 4.9 10^3/uL Normal 3.5-10.[address] [place] [address] [phone] Red Blood Count 4.72 10^6/uL Normal 3.70-4.87 [...] Red Blood Cells % 0.0 Inr/Protime 05/26/2019 [facility] Inr 0.95 Normal 0.82-1.09 3 [address] [place] [address] [phone] Comp Metabolic 05/26/2019 [facility] Sodium 139 mmol/L Normal 135-145 Panel [address] [place] [address] [phone] Potassium 3.9 mmol/L Normal 3.5-5.0 Chloride 106 [...] Egfr 74.9 >60 4 Laboratory test 05/26/2019 [facility] Troponin-I (TnI) 0.00 ng/ mL <0.04 5 finding [address] [place] [address] [phone] B-Type Natriuretic Peptide BNP 50 pg/mL <=100 Lactic Acid 2.1 mmol/L Critical high 0.5-2.0 6 Urine Culture And 05/12/2019 [facility] Urine Culture SEE RESULT [address] BELOW [place] [facility] [phone] Laboratory test 04/21/2019 [facility] Hemoglobin A1c 6.5 % High 4.0- [address] (Glyco HGB) 5.6 [place] [address] [phone] CBC Auto Diff 04/21/2019 [facility] White Blood 5.9 Normal 3.5 - [address] Count 10^3/uL 10.8 [place] [address] [phone] Red Blood Count 4.70 10^6/uL Normal 3.70-4.87 [...] % 0.1 Iron & Iron Binding 04/21/2019 [facility] Iron 70 g/dL Normal 50-[address] [place] [address] [phone] Unsaturated Iron Binding < 278 g/dL Total Iron Binding Capacity 293 g/dL Normal 250-450 Transferrin 209 mg/dL Normal 203-362 % Iron Saturation 24 % Normal 15-55 Urine Culture And 04/21/2019 [facility] Urine SEE RESULT [address] [place] [address] [phone] Laboratory test 04/21/2019 [facility] Vitamin B12 326 pg/mL Normal 180- [address] [place] [address] [phone] Comp Metabolic 04/21/2019 [facility] Sodium 142 mmol/L Normal 135- Panel [address] [place] [address] [phone] Potassium 4.2 mmol/L Normal 3.5-5.0 Chloride 106 [...] Egfr 88.2 >60 11 Lipid Profile 04/21/2019 [facility] Triglycerides 161 mg/dL 12 (Trig/Chol/HDL) [address] [place] [address] [phone] Cholesterol 166 mg/dL 13 HDL Cholesterol 46.7 mg/dL 14 LDL Cholesterol 87 mg/dL 15 1 Troponin-I testing on Plasma Separator Tubes (PST) has a known false positive rate of 0.20-0.40%. All positive troponins reflex immediately to secondary confirmatory testing. Using the [employer] DxI 800 Access Immunoassay systems, the 99th percentile upper reference limit was demonstrated to be < 0.03 ng/mL. 2 [facility] Severe Sepsis and Septic Shock Management [...] immediately to secondary confirmatory testing. Using the [employer] DxI 800 Access Immunoassay systems, the 99th percentile upper reference limit was demonstrated to be < 0.03 ng/mL. 6 Critical Result LACT:2.1 Called to YAZAN at: 22:56:42 by:[email or web address] Read back by:YAZAN [facility] Severe Sepsis and Septic Shock Management Bundle Measure requires all lactic acids initially measuring >2.0 mmol/L be repeated. 7 SEE RESULT BELOW Name: MARIE ZHOU I : [address]: Alexandro Roca [employer] SU[employer] ASSOCIATE Acct: [id number] Unit: [id number] AGE: 59 Location: [facility] Re05/12/19 SEX: F Status: REG REF SPEC: [id number] JOSEPHINE: 05/12/[address]: Alexandro Roca NP REQ: [id number] RECD: 05/12/19 STATUS: COMP _ SOURCE: URINE SPDESC: ORDERED: Urine Culture Procedure Result Reported Site Urine Culture Final 05/13/19- 1042 ML No growth of clinically significant organisms * ML - Main Lab . END OF REPORT DEPARTMENT OF PATHOLOGY, [address] [place] [address] Lj Bravo M.D. Director [facility] # [id number] Therapeutic target for the treatment of diabetes mellitus patients is <7% HBA1C, and in selective patients <6.0%. Please refer to [place] [employer] diabetic care guidelines for further information. 9 SEE RESULT BELOW Name: PARDEEP ZHOUMARISA Davis : [address]: Alexandro Roca NP Acct: [id number] Unit: [id number] AGE: 59 Location: [facility] Re04/21/19 SEX: F Status: REG REF SPEC: [id number] JOSEPHINE: 04/21/19-1253 [facility] DR: Alexandro Roca NP REQ: [id number] RECD: 04/21/19-1314 STATUS: COMP _ SOURCE: URINE SPDESC: ORDERED: Urine Culture COMMENTS: FASTING 10 HOUR Procedure Result Reported Site Urine Culture Final 04/23/19- 0837 ML Mixed robbi; possible contamination. Suggest resubmission. * ML - Main Lab . END OF REPORT DEPARTMENT OF PATHOLOGY, [address] [place] [address] Lj Bravo M.D. Director [facility] # [id number] 10 Normal Range 180 to 914 Indeterminate [...] High: >189 Procedures Date Code Description Status 08/31/2019 Inject/Drain Joint/Bursa Major W/O US Completed 08/31/2019 Inject/Drain Joint/Bursa Major W/O US Completed 08/24/2019 Inject/Drain Joint/Bursa Major W/O US Completed 08/24/2019 Inject/Drain Joint/Bursa Major W/O US Completed 08/17/2019 Inject/Drain Joint/Bursa Major W/O US Completed 06/10/2019 Inject/Drain Joint/Bursa Major W/O US Completed 09/19/2018 [id number] Colonoscopy Completed 09/09/2018 [id number] Mammogram Completed 02/17/2013 [id number] Colonoscopy Completed Medical Devices Description No Information Available Encounters Type Date Location Provider Dx Diagnosis Office Visit 07/28/2019 [facility] Internal Maryann Elliott, J01.90 Acute sinusitis , 3:00p Medicine - [facility] N.P. unspecified Office Visit 07/10/2019 [facility] Norah Olmedo, M25.561 Pain in right knee 9:15a at [place] M.D. M25.562 Pain in left knee M25.462 Effusion, left knee M25.461 Effusion, right knee M17.0 Bilateral primary osteoarthritis of knee Office Visit 06/17/2019 2:00p [facility] Qutaybeh S. I10 Sandeep Calderón M.D. (primary) hypertension E78.5 Hyperlipidemia, unspecified Office Visit 06/10/2019 8:00a [facility] Norah Olmedo, M25.562 Pain in left at [place] M.D. knee M25.561 Pain in right knee M25.462 Effusion, left knee M25.461 Effusion, right knee M17.0 Bilateral primary osteoarthritis of knee Office Visit 06/08/2019 2:00p [facility] Internal Alexandro Roca, B02.9 [place] without Medicine - [employer]OCIATE complications [facility] Office Visit 05/25/2019 4:20p [facility] Internal Alexandro Roca M25.562 Pain in left knee Medicine - [employer] SUPPORT ASSOCIATE [facility] M25.561 Pain in right knee M85.80 Oth disrd of bone density and structure, unspecified site Z23 Encounter for immunization Office Visit 05/21/2019 [facility] J45.909 Unspecified 11:00a [facility] Stanley asthma, 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 uncomplicated J44.9 Chronic obstructive pulmonary disease, unspecified Office Visit 04/21/2019 11:40a [facility] Internal Alexandro Abelino, I10 Essential ( primary) Medicine - [facility] [employer] SU[employer] ASSOCIATE hypertension E78.5 Hyperlipidemia, unspecified D64.9 Anemia, unspecified R73.9 Hyperglycemia, unspecified R32 Unspecified urinary incontinence M25.552 Pain in left hip Assessments Date Code Description Provider 08/31/2019 M25.562 Pain in left knee NorahJared Miller.DCristian 08/31/2019 M25.561 Pain in right knee NorahJared Miller.DCristian 08/31/2019 M25.461 Effusion, right knee Norah Olmedo M.D. 08/31/2019 M25.462 Effusion, left knee Jared Noriega.DCristian 08/31/2019 M17.0 Bilateral primary osteoarthritis of Norah Olmedo M.D. knee 08/24/2019 M25.562 Pain in left knee NorahJared Miller.DCristian 08/24/2019 M25.462 Effusion, left knee Jared Noriega.DCristian 08/24/2019 M25.461 Effusion, right knee Jared Noriega.DCristian 08/24/2019 M25.561 Pain in right knee NorahJared Miller.DCristian 08/24/2019 M17.0 Bilateral primary osteoarthritis of Norah Olmedo M.D. knee 08/17/2019 M25.562 Pain in left knee Norahlait Olmedo M.DCristian 08/17/2019 M25.462 Effusion, left knee Jared Noriega.DCristian 08/17/2019 M25.461 Effusion, right knee NorahJared Miller.DCristian 08/17/2019 M17.0 Bilateral primary osteoarthritis of Norah Olmedo M.D. knee 08/17/2019 M25.561 Pain in right knee Jared Noriega.Eusebio 07/28/2019 J01.90 Acute sinusitis, unspecified Maryann Elliott, N.P. 07/10/2019 M25.561 Pain in right knee Norah Olmedo, M.D. 07/10/2019 M25.562 Pain in left knee Norah Olmedo, M.D. 07/10/2019 M25.462 Effusion, left knee Norah Byrneske, M.D. 07/10/2019 M25.461 Effusion, right knee Norah Olmedo, M.D. 07/10/2019 M17.0 Bilateral primary osteoarthritis of Norah Olmedo M.D. knee 06/17/2019 I10 Essential (primary) hypertension Jessica Calderón M.D. 06/17/2019 E78.5 Hyperlipidemia, unspecified Jessica Calderón M.D. 06/10/2019 M25.562 Pain in left knee Norah Olmedo, Jared.D. 06/10/2019 M25.561 Pain in right knee Norah Olmedo, M.D. 06/10/2019 M25.462 Effusion, left knee Norah Olmedo, M.D. 06/10/2019 M25.461 Effusion, right knee Norah Olmedo, M.D. 06/10/2019 M17.0 Bilateral primary osteoarthritis of Norah Olmedo, Jared.D. knee 06/08/2019 B02.9 [place] without complications Alexandro [...] Roca NP 04/21/2019 D64.9 Anemia, unspecified Alexandro Roca, MARC 04/21/2019 R73.9 Hyperglycemia, unspecified Alexandro MARC Roca 04/21/2019 R32 Unspecified urinary incontinence Alexandro Roca NP 04/21/2019 M25.552 Pain in left hip Alexandro Roca NP Plan of Treatment Future Appointment(s):09/15/2019 11:15 am - Андрей Fisher M.D. at [facility] at [id number]/19/2019 8:40 am - Alexandro Roca NP at [facility] Internal Medicine - [facility]11/19/2019 8:30 am - Marcia Stanley NP at [facility]08/31/2019 - Norah Olmedo M.D.M25.562 Pain in left kneeFollow up:Follow up: As ysdiomH32.561 Pain in right kneeM25.461 Effusion, right kneeM25.462 Effusion, left kneeM17.0 Bilateral primary osteoarthritis of knee Functional Status Description No Information Available Mental Status Description No Information Available Referrals Refer to Reason for Referral Status Appt Date Norah Olmedo MD Sent 06/10/[address] [place] [address] [place] [address] [phone]
--- OUTSIDE RECORDS SUMMARY | 2019-09-08 18:28 | XMS REPORT | Continuity of Care Document ---
:1960 External Reference #:[id number] Author Name Maryann Elliott N.P. (transmitted by agent of provider Yani Schmitz) Address [address], [place] [address] Care Team Providers Name Role Phone RevaNithya ramsey FNP - Nurse Care Team Information Valet Cashier [phone] Practitioner Robert Ortega MD - Hospitalist Care Team Information Valet Cashier [phone] Nancie Egan MD - Internal Care Team Information Valet Cashier [phone] Medicine Problems Active Problems Provider Date Asthma [...] presumed cause; no discharge summary in the [facility] database Localized, primary osteoarthritis Norah Olmedo M.D. Onset: 06/10/2019 Social History Type Date Description Comments Sex Unknown Tobacco Use Start: Unknown Never Smoked Cigarettes Smoking Status Reviewed: 07/28/19 Never Smoked Cigarettes ETOH Use Denies alcohol [...] Medications SIG Qnty Indications Ordering Date Provider Doxycycline Hyclate 1 by mouth twice a 20tabs J01.90 Maryann Varn, 2018 day x 10 days N.P. 100mg Tablets Fluticasone 2 sprays each 16gm J01.90 Maryann Varadam, 07/28/2019 Propionate nostril daily as N.P. 50mcg/Act needed Suspension Gabapentin 1 by mouth twice a 60caps B02.9 Alexandro Roca NP 06/08/2019 300mg day Capsules Quad Cane use while 1units M25.561 Alexandro Roca NP 06/08/2019 ambulating M25.562 M85.80 Calcium 600/Vitamin D3 1 by mouth twice 60tabs M85.80 Alexandro Roca NP 05/25 daily [id number] Tablets Naproxen 1 tablet with food 60tabs [...] by mouth every day 180caps I10 Tracie VillalobosCristian Gene, 07/08/2018 120mg Caps ER N.P. 24HR Blood Pressure Monitor check bp three times 1units I10 Alexandro Roca NP 10/2017 Auto Inflate weekly at home [facility] Freestyle Lite Blood for blood glucose 1units E11.9 Robert Ortega MD 2017 Glucose Monitoring monitoring once System daily for diabetes Device mellitus Blood Pressure Kit check twice a day 1units R55 Robert Ortega MD 06/09/2018 Kit for hypertension and record in a log book Pulmicort Flexhaler inhale one puff by 3units [...] Ipratropium 1 vial in nebulizer 90ml Marcia [place]/Albuterol every 4-6 hours as M[facility] Sulfate needed for asthma 0.5-2.5(3)mg/3ML Solution Epipen 2-Gulshan use as directed 1units Unknown 0.3mg/0.3ML Solution Auto-Inject Albuterol Sulfate 1 vial via nebulizer 75ml J44.9 Alexandro Roca NP 4 times daily as (2.5mg/3ML) 0.083% needed Nebulizer History Medications Hydrocodone 1-2 tabs by 42tabs B02.9 [place] 06/08/2019 - Bitartrate/Acetaminophen mouth every 8 MARC Roca 06/15/2019 5-325mg Tablets hours as needed. Lidocaine 3 patches to 90units B02.9 [place] 06/08/2019 - 5% Patches affected areas MARC Roca 06/22/2019 12 hours on and 12 hours. Cane Tips/3/4" Quad M25.561 [place] 05/25/2019 - Non-Suction MARC Roca 06/08/2019 M25.562 M85.80 Ibuprofen take one tablet by 60tabs Alexandro Roca NP 01/27/2019 - 600mg Tablets mouth three times 06/16/2019 a day as needed with food Medications Administered in Office Medication SIG Qnty Indications Ordering Provider Date Depomedrol 40MG Norah Olmedo M.D. 06/10/2019 Injection Depomedrol 40MG Norah Olmedo M.D. 06/10/2019 Injection Inj, Regadenoson, 0.1 MG Jason Newell, DO [facility] 05/27/2018 Injection Technetium TC 99M Jason Newell, DO [facility] 05/27/2018 Tetrofosmin, Per Unit Dose Up To 40 Millicuries Injection Depomedrol 80MG Marcelo Gamboa M.D. 05/06/2014 Injection Immunizations CPT Code Status Date Vaccine Reaction Lot # [id number] Given 05/25/2019 Influenza Virus Vaccine, No immediate reaction [id number] Quadrivalent ([id number]), Derived From Cell [id number] Given 07/01/2018 Influenza Virus Vaccine, [id number] Quadrivalent, Split, Preservative Free [id number] Given 05/07/2016 Influenza Virus 3Yrs & Over Vital Signs Date Vital Result Comment 07/28/2019 3:14pm Height 61 inches 5'1" Weight 145.00 lb Heart Rate 64 /min BP Systolic Sitting 102 mmHg BP Diastolic Sitting 64 mmHg Body Temperature 97.8 F O2 % BldC Oximetry 96 % BMI (Body Mass Index) 27.4 kg/m2 07/10/2019 9:38am Height 61 inches 5'1" Weight 135.00 lb Heart Rate 74 /min BP Systolic 106 mmHg BP Diastolic 66 mmHg Respiratory Rate 18 /min Pain Level 8 BMI (Body Mass Index) 25.5 kg/m2 Results Test Acquired Date Facility Test Result H/L Range Note Laboratory test 05/27/2019 [facility] Troponin-I 0.00 ng/mL < 0.[address] (TnI) [place] [address] [phone] Laboratory test 05/27/2019 [facility] Lactic Acid 1.5 mmol/L Normal 0.5-2.[address] [place] [address] [phone] CBC Auto Diff 05/26/2019 [facility] White Blood 4.9 10^3/uL Normal 3.5-10.[address] [place] [address] [phone] Red Blood Count 4.72 10^6/uL Normal 3.70-4.87 [...] Red Blood Cells % 0.0 Inr/Protime 05/26/2019 [facility] Inr 0.95 Normal 0.82-1.[address] [place] [address] [phone] Comp Metabolic 05/26/2019 [facility] Sodium 139 mmol/L Normal 135-[address] [place] [address] [phone] Potassium 3.9 mmol/L Normal 3.5-5.0 Chloride 106 [...] Egfr 74.9 >60 4 Laboratory test 05/26/2019 [facility] Troponin-I (TnI) 0.00 ng/ mL <0.04 [address] [place] [address] [phone] B-Type Natriuretic Peptide BNP 50 pg/mL <=100 Lactic Acid 2.1 mmol/L Critical high 0.5-2.0 6 Urine Culture And 05/12/2019 [facility] Urine Culture SEE RESULT [address] [place] [address] [phone] Laboratory test 04/21/2019 [facility] Hemoglobin A1c 6.5 % High 4.0- [address] (Glyco HGB) 5.6 [place] [address] [phone] CBC Auto Diff 04/21/2019 [facility] White Blood 5.9 Normal 3.5 - [address] Count 10^3/uL 10.8 [place] [address] [phone] Red Blood Count 4.70 10^6/uL Normal 3.70-4.87 [...] % 0.1 Iron & Iron Binding 04/21/2019 [facility] Iron 70 g/dL Normal 50-[address] [place] [address] [phone] Unsaturated Iron Binding < 278 g/dL Total Iron Binding Capacity 293 g/dL Normal 250-450 Transferrin 209 mg/dL Normal 203-362 % Iron Saturation 24 % Normal 15-55 Urine Culture And 04/21/2019 [facility] Urine SEE RESULT [address] [place] [address] [phone] Laboratory test 04/21/2019 [facility] Vitamin B12 326 pg/mL Normal 180- [address] [place] [address] [phone] Comp Metabolic 04/21/2019 [facility] Sodium 142 mmol/L Normal 135- Panel [address] [place] [address] [phone] Potassium 4.2 mmol/L Normal 3.5-5.0 Chloride 106 [...] Egfr 88.2 >60 11 Lipid Profile 04/21/2019 [facility] Triglycerides 161 mg/dL 12 (Trig/Chol/HDL) [address] [place] [address] [phone] Cholesterol 166 mg/dL 13 HDL Cholesterol 46.7 mg/dL 14 LDL Cholesterol 87 mg/dL 15 1 Troponin-I testing on Plasma Separator Tubes (PST) has a known false positive rate of 0.20-0.40%. All positive troponins reflex immediately to secondary confirmatory testing. Using the Utrip DxI 800 Access Immunoassay systems, the 99th percentile upper reference limit was demonstrated to be < 0.03 ng/mL. 2 [facility] Severe Sepsis and Septic Shock Management [...] immediately to secondary confirmatory testing. Using the Ut[employer] DxI 800 Access Immunoassay systems, the 99th percentile upper reference limit was demonstrated to be < 0.03 ng/mL. 6 Critical Result LACT:2.1 Called to YAZAN at: 22:56:42 by:[id number] Read back by:YAZAN [facility] Severe Sepsis and Septic Shock Management Bundle Measure requires all lactic acids initially measuring >2.0 mmol/L be repeated. 7 SEE RESULT BELOW Name: ZHOUPARDEEP RebolledoMARISA Davis : [address]: Alexandro Roca SCIENTIFIC ILLUSTRATOR Acct: [id number] Unit: [id number] AGE: 59 Location: [facility] Re05/12/19 SEX: F Status: REG REF SPEC: [id number] JOSEPHINE: 05/12/[address]: Alexandro Roca NP REQ: [id number] RECD: 05/12/19 STATUS: COMP _ SOURCE: URINE SPDESC: ORDERED: Urine Culture Procedure Result Reported Site Urine Culture Final 05/13/19- 1042 ML No growth of clinically significant organisms * ML - Main Lab . END OF REPORT DEPARTMENT OF PATHOLOGY, [address] [place] [address] Lj Bravo M.D. Director [facility] # [id number] Therapeutic target for the treatment of diabetes mellitus patients is <7% HBA1C, and in selective patients <6.0%. Please refer to [employer] diabetic care guidelines for further information. 9 SEE RESULT BELOW Name: MARIE ZHOU I : [address]: Alexandro Roca SCIENTIFIC ILLUSTRATOR Acct: [id number] Unit: [id number] AGE: 59 Location: [facility] Re04/21/19 SEX: F Status: REG REF SPEC: [id number] JOSEPHINE: 04/21/19-[address]: Alexandro Roac SCIENTIFIC ILLUSTRATOR REQ: [id number] RECD: 04/21/19-1314 STATUS: COMP _ SOURCE: URINE SPDESC: ORDERED: Urine Culture COMMENTS: FASTING 10 HOUR Procedure Result Reported Site Urine Culture Final 04/23/19- 0837 ML Mixed robbi; possible contamination. Suggest resubmission. * ML - Main Lab . END OF REPORT DEPARTMENT OF PATHOLOGY, [address] [place] [address] Lj Bravo M.D. Director [facility] # [id number] Normal Range 180 to 914 Indeterminate [...] High: >189 Procedures Date Code Description Status 06/10/2019 32790 Inject/Drain Joint/Bursa Major W/O US Completed 09/19/2018 31739873 Colonoscopy Completed 09/09/2018 62274902 Mammogram Completed 02/17/2013 11905454 Colonoscopy Completed Medical Devices Description No Information Available Encounters Type Date Location Provider Dx Diagnosis Office Visit 07/10/2019 [facility] Norah Olmedo, M25.561 Pain in right 9:15a at [place] M.D. knee M25.562 Pain in left knee M25.462 Effusion, left knee M25.461 Effusion, right knee M17.0 Bilateral primary osteoarthritis of knee Office Visit 06/17/2019 2:00p [facility] Qutaybeh S. I10 Essential Morgan Calderón (primary) hypertension E78.5 Hyperlipidemia, unspecified Office Visit 06/10/2019 8:00a [facility] Norah Olmedo, M25.562 Pain in left at [place] M.D. knee M25.561 Pain in right knee M25.462 Effusion, left knee M25.461 Effusion, right knee M17.0 Bilateral primary osteoarthritis of knee Office Visit 06/08/2019 2:00p [facility] Internal Alexadnro Roca, B02.9 [place] [facility] - SCIENTIFIC ILLUSTRATOR complications [facility]cm[facility] Office Visit 05/25/2019 4:20p [facility] Internal Alexandro Roca, M25.562 Pain in left knee Medicine - SCIENTIFIC ILLUSTRATOR [facility] M25.561 Pain in right knee M85.80 Oth disrd of bone density and structure, unspecified site Z23 Encounter for immunization Office Visit 05/21/2019 [facility] J45.909 Unspecified 11:00a [facility] asthma, Hot Box Operator uncomplicated J44.9 Chronic obstructive pulmonary disease, unspecified Office Visit 04/21/2019 11:40a [facility] Internal Alexandro Roca, I10 Essential ( primary) Medicine - [facility] SCIENTIFIC ILLUSTRATOR hypertension E78.5 Hyperlipidemia, unspecified D64.9 Anemia, unspecified R73.9 Hyperglycemia, unspecified R32 Unspecified urinary incontinence M25.552 Pain in left hip Assessments Date Code Description Provider 07/28/2019 J01.90 Acute sinusitis, unspecified Maryann Elliott, N.P. 07/10/2019 M25.561 Pain in right knee Norah Olmedo M.D. 07/10/2019 M25.562 Pain in left knee Norah Olmedo M.D. 07/10/2019 M25.462 Effusion, left knee Norah Honorio, M.D. 07/10/2019 M25.461 Effusion, right knee Norah Olmedo M.D. 07/10/2019 M17.0 Bilateral primary osteoarthritis of Norahilana Olmedo M.D. knee 06/17/2019 I10 Essential (primary) [...] Alexandro Roca NP 04/21/2019 R73.9 Hyperglycemia, unspecified Alexandrojuancarlos Roca NP 04/21/2019 R32 Unspecified urinary incontinence Alexandro Roca NP 04/21/2019 M25.552 Pain in left hip Alexandro Roca NP Plan of Treatment Future Appointment(s):10/19/2019 8:40 am - Alexand[facility] at [facility] 8:30 am - [facility] NP at [facility]07/28/2019 - Maryann Elliott N.P.J01.90 Acute sinusitis, unspecifiedNew Medication:Doxycycline Hyclate 100 mg - 1 by mouth twice a day x 10 daysFluticasone Propionate 50 mcg/Act - 2 sprays each nostril daily as neededComments:For your sinus infection: I sent a prescription for Doxycycline 100 mg to the pharmacy. Take 1 tablet every 12 hours until they are gone. Take this with a little food. I also sent a prescription for a steroid based nasal spray. Use 2 inhalations in each nostril once daily until your infection has cleared. If your symptoms do not improve call the office. Functional Status Description No Information Available Mental Status Description No Information Available Referrals Refer to Reason for Referral Status Appt Date Norah Olmedo MD Sent 06/10/[address] [place] [id number] [phone]
--- OUTSIDE RECORDS SUMMARY | 2019-09-08 18:28 | XMS REPORT | Continuity of Care Document ---
:1960 External Reference #:[id number] Author Name Noarh Olmedo M.D. (transmitted by agent of provider Marcia Larson) Address [address] [place] [id number] Care Team Providers Name Role Phone Nithya Blanco FNP - Nurse Care Team Information Automotive Brake Specialist [phone] Practitioner Robert Ortega MD - Hospitalist Care Team Information Automotive Brake Specialist [phone] Nancie Egan MD - Internal Care Team Information Automotive Brake Specialist Medicine Problems Active Problems Provider Date Asthma [...] presumed cause; no discharge summary in the [facility] database Localized, primary osteoarthritis Norah Olmedo M.D. Onset: 06/10/2019 Social History Type Date Description Comments Sex Unknown Tobacco Use Start: Unknown Never Smoked Cigarettes Smoking Status Reviewed: 08/17/19 Never Smoked Cigarettes ETOH Use Denies alcohol [...] 60tabs M85.80 Alexandro Roca NP 05/25 daily [id number] Tablets Naproxen 1 tablet with food 60tabs [...] NP 10/2017 Auto Inflate weekly at home [facility] Freestyle Lite Blood for blood glucose 1units [...] Ipratropium 1 vial in nebulizer 90ml Marcia Warren/Albuterol every 4-6 hours as MARC Stanley Sulfate [...] 12 hours on and 12 hours. Cane Tips//" Quad M25.561 Alexandro Roca NP 05/25/2019 - Non-Suction 06/08/2019 M25.562 M85.80 Medications Administered in Office Medication SIG Qnty Indications Ordering Provider Date Synvisc Or Synvisc-One Norah Olmedo M.D. 08/17/2019 Injection 1 MG Injection Synvisc Or Synvisc-One Norah Olmedo M.D. 08/17/2019 Injection 1 MG Injection Depomedrol 40MG Norah Olmedo M.D. 06/10/2019 Injection Depomedrol 40MG Norah Olmedo M.D. 06/10/2019 Injection Inj, Regadenoson, 0.1 MG Jason Newell, DO FAC 05/27/2018 Injection Technetium TC 99M Jason Newell, DO FAC 05/27/2018 Tetrofosmin, Per Unit Dose Up To 40 Millicuries Injection Depomedrol 80MG Marcelo Gamboa M.D. 05/06/2014 Injection Immunizations CPT Code Status Date Vaccine Reaction Lot # [id number] Given 05/25/2019 Influenza Virus Vaccine, No immediate reaction [id number] Quadrivalent ([id number]), Derived From Cell [id number] Given 07/01/2018 Influenza Virus Vaccine, [id number] Quadrivalent, Split, Preservative Free [id number] Given 05/07/2016 Influenza Virus 3Yrs & Over Vital Signs Date Vital Result Comment 08/17/2019 10:53am Height 61 inches 5'1" Weight 135.00 lb Heart Rate 60 /min BP Systolic 120 mmHg BP Diastolic 62 mmHg Respiratory Rate 18 /min Pain Level 8 BMI (Body Mass Index) 25.5 kg/m2 07/28/2019 3:14pm Height 61 inches 5'1" Weight 145.00 lb Heart Rate 64 /min BP Systolic Sitting 102 mmHg BP Diastolic Sitting 64 mmHg Body Temperature 97.8 F O2 % BldC Oximetry 96 % BMI (Body Mass Index) 27.4 kg/m2 Results Test Acquired Date Facility Test Result H/L Range Note Laboratory test 05/27/2019 [facility] Troponin-I 0.00 ng/mL < 0.04 [address] (TnI) [place] [address] [phone] Laboratory test 05/27/2019 [facility] Lactic Acid 1.5 mmol/L Normal 0.5-2.0 [address] [place] [address] [phone] CBC Auto Diff 05/26/2019 [facility] White Blood 4.9 10^3/uL Normal 3.5-10.[address] [place] [address] [phone] Red Blood Count 4.72 10^6/uL Normal 3.70-4.87 [...] Red Blood Cells % 0.0 Inr/Protime 05/26/2019 [facility] Inr 0.95 Normal 0.82-1.[address] [place] [address] [phone] Comp Metabolic 05/26/2019 [facility] Sodium 139 mmol/L Normal 135-145 Panel [address] [place] [address] [phone] Potassium 3.9 mmol/L Normal 3.5-5.0 Chloride 106 [...] Egfr 74.9 >60 4 Laboratory test 05/26/2019 [facility] Troponin-I (TnI) 0.00 ng/ mL <0.04 5 finding [address] [place] [address] [phone] B-Type Natriuretic Peptide BNP 50 pg/mL <=100 Lactic Acid 2.1 mmol/L Critical high 0.5-2.0 6 Urine Culture And 05/12/2019 [facility] Urine Culture SEE RESULT [address] [place] [address] [phone] Laboratory test 04/21/2019 [facility] Hemoglobin A1c 6.5 % High 4.0- [address] (Glyco HGB) 5.6 [place] [address] [phone] CBC Auto Diff 04/21/2019 [facility] White Blood 5.9 Normal 3.5 - [address] Count 10^3/uL 10.8 [place] [address] [phone] Red Blood Count 4.70 10^6/uL Normal 3.70-4.87 [...] % 0.1 Iron & Iron Binding 04/21/2019 [facility] Iron 70 g/dL Normal 50-[address] [place] [address] [phone] Unsaturated Iron Binding < 278 g/dL Total Iron Binding Capacity 293 g/dL Normal 250-450 Transferrin 209 mg/dL Normal 203-362 % Iron Saturation 24 % Normal 15-55 Urine Culture And 04/21/2019 [facility] Urine SEE RESULT [address] [place] [address] [phone] Laboratory test 04/21/2019 [facility] Vitamin B12 326 pg/mL Normal 180- [address] [place] [address] [phone] Comp Metabolic 04/21/2019 [facility] Sodium 142 mmol/L Normal 135- Panel [address] [place] [address] [phone] Potassium 4.2 mmol/L Normal 3.5-5.0 Chloride 106 [...] Egfr 88.2 >60 11 Lipid Profile 04/21/2019 [facility] Triglycerides 161 mg/dL 12 (Trig/Chol/HDL) [address] [place] [address] [phone] Cholesterol 166 mg/dL 13 HDL Cholesterol 46.7 mg/dL 14 LDL Cholesterol 87 mg/dL 15 1 Troponin-I testing on Plasma Separator Tubes (PST) has a known false positive rate of 0.20-0.40%. All positive troponins reflex immediately to secondary confirmatory testing. Using the SinDelantalI 800 Access Immunoassay systems, the 99th percentile upper reference limit was demonstrated to be < 0.03 ng/mL. 2 [facility] Severe Sepsis and Septic Shock Management [...] immediately to secondary confirmatory testing. Using the Reach Pros DxI 800 Access Immunoassay systems, the 99th percentile upper reference limit was demonstrated to be < 0.03 ng/mL. 6 Critical Result LACT:2.1 Called to [id number] at: 22:56:42 by:[id number] Read back by:YAZAN [facility] Severe Sepsis and Septic Shock Management Bundle Measure requires all lactic acids initially measuring >2.0 mmol/L be repeated. 7 SEE RESULT BELOW Name: MARIE ZHOU I : [address]: Alexandro Roca AUTOMATION SOFTWARE ENGINEER Acct: [id number] Unit: [id number] AGE: 59 Location: [facility] Re05/12/19 SEX: F Status: REG REF SPEC: [id number] JOSEPHINE: 05/12/[address]: Alexandro Roca NP REQ: [id number] RECD: 05/12/19 STATUS: COMP _ SOURCE: URINE SPDESC: ORDERED: Urine Culture Procedure Result Reported Site Urine Culture Final 05/13/19- 1042 ML No growth of clinically significant organisms * ML - Main Lab . END OF REPORT DEPARTMENT OF PATHOLOGY, [address] [place] [address] Lj Bravo M.D. Director [facility] # [id number] Therapeutic target for the treatment of diabetes mellitus patients is <7% HBA1C, and in selective patients <6.0%. Please refer to [place] [employer] diabetic care guidelines for further information. 9 SEE RESULT BELOW Name: MARIE ZHOU I : [address]: Alexandro Roca NP Acct: [id number] Unit: [id number] AGE: 59 Location: [facility] Re04/21/19 SEX: F Status: REG REF SPEC: [id number] JOSEPHINE: 04/21/19-[address]: Alexandro Roca NP REQ: [id number] RECD: 04/21/19 STATUS: COMP _ SOURCE: URINE SPDESC: ORDERED: Urine Culture COMMENTS: FASTING 10 HOUR Procedure Result Reported Site Urine Culture Final 04/23/19- 0837 ML Mixed robbi; possible contamination. Suggest resubmission. * ML - Main Lab . END OF REPORT DEPARTMENT OF PATHOLOGY, [address] [place] [address] Lj Bravo M.D. Director [facility] # [id number] 10 Normal Range 180 to 914 Indeterminate [...] High: >189 Procedures Date Code Description Status 08/17/2019 Inject/Drain Joint/Bursa Major W/O US Completed 08/17/2019 Inject/Drain Joint/Bursa Major W/O US Completed 06/10/2019 Inject/Drain Joint/Bursa Major W/O US Completed 09/19/2018 [id number] Colonoscopy Completed 09/09/2018 [id number] Mammogram Completed 02/17/2013 [id number] Colonoscopy Completed Medical Devices Description No Information Available Encounters Type Date Location Provider Dx Diagnosis Office Visit 07/28/2019 [facility] Maryann Elliott, J01.90 Acute sinusitis , 3:00p Medicine - [facility] N.P. unspecified Office Visit 07/10/2019 [facility] Norah Olmedo, M25.561 Pain in right knee 9:15a at [place] M.D. M25.562 Pain in left knee M25.462 Effusion, left knee M25.461 Effusion, right knee M17.0 Bilateral primary osteoarthritis of knee Office Visit 06/17/2019 2:00p [facility] Qutaybeh S. I10 Essential Morgan Calderón (primary) hypertension E78.5 Hyperlipidemia, unspecified Office Visit 06/10/2019 8:00a [facility] Norah Olmedo, M25.562 Pain in left at [place] M.D. knee M25.561 Pain in right knee M25.462 Effusion, left knee M25.461 Effusion, right knee M17.0 Bilateral primary osteoarthritis of knee Office Visit 06/08/2019 2:00p [facility] Alexandro Roca, B02.9 [place] without Medicine - AUTOMATION SOFTWARE ENGINEER complications [facility] Office Visit 05/25/2019 4:20p [facility] Alexandro Roca, M25.562 Pain in left knee Medicine - AUTOMATION SOFTWARE ENGINE[facility] M25.561 Pain in right knee M85.80 Oth disrd of bone density and structure, unspecified site Z23 Encounter for immunization Office Visit 05/21/2019 [facility] J45.909 Unspecified 11:00a [facility] Stanley asthma, [employer] [employer] Orthodontist uncomplicated J44.9 Chronic obstructive pulmonary disease, unspecified Office Visit 04/21/2019 11:40a [facility] Alexandro Roca, I10 Essential ( [facility] [employer] SOFTWARE ENGINE[employer] hypertension E78.5 Hyperlipidemia, unspecified D64.9 Anemia, unspecified R73.9 Hyperglycemia, unspecified R32 Unspecified urinary incontinence M25.552 Pain in left hip Assessments Date Code Description Provider 08/17/2019 M25.562 Pain in left knee Norah Byrneske, M.D. 08/17/2019 M25.462 Effusion, left knee Norahilana Olmedo, Jared.DCristian 08/17/2019 M25.461 Effusion, right knee Norahilana Olmedo, Jared.DCristian 08/17/2019 M17.0 Bilateral primary osteoarthritis of Norahliat Olmedo, Morgan knee 08/17/2019 M25.561 Pain in right knee Norah Olmedo, Jared.DCristian 07/28/2019 J01.90 Acute sinusitis, unspecified Maryann Elliott N.PCristian 07/10/2019 M25.561 Pain in right knee Norahilana Olmedo, Jared.DCristian 07/10/2019 M25.562 Pain in left knee Norahilana Olmedo, Jared.DCristian 07/10/2019 M25.462 Effusion, left knee Norahliat Olmedo, M.DCristian 07/10/2019 M25.461 Effusion, right knee Norahilana Olmedo, M.DCristian 07/10/2019 M17.0 Bilateral primary osteoarthritis of Norah Olmedo M.D. knee 06/17/2019 I10 Essential (primary) hypertension Jessica Calderón M.D. 06/17/2019 E78.5 Hyperlipidemia, unspecified Jessica Calderón M.D. 06/10/2019 M25.562 Pain in left knee Norahilana Olmedo M.DCristian 06/10/2019 M25.561 Pain in right knee Norahilana Olmedo M.DCristian 06/10/2019 M25.462 Effusion, left knee Jared Noriega.DCristian 06/10/2019 M25.461 Effusion, right knee Norahilana Olmedo, M.DCristian 06/10/2019 M17.0 Bilateral primary osteoarthritis of NorahJared Miller.Eusebio knee 06/08/2019 B02.9 [place] without complications Alexandro Roca NP 05/25/2019 M25.562 Pain in left knee Alexandro Roca NP 05/25/2019 M25.561 Pain in right knee Alexandro Roca, MARC 05/25/2019 M85.80 Other specified disorders of bone Alexandro Roca NP density and structure, unspecified site 05/25/2019 Z23 Encounter for immunization Alexandro Roca NP 05/21/2019 J45.909 Unspecified asthma, uncomplicated Marcia Stanley NP 05/21/2019 J44.9 Chronic obstructive pulmonary disease, Marcia Stanley NP unspecified 04/21/2019 I10 Essential (primary) hypertension Alexandro Roca, MARC 04/21/2019 E78.5 Hyperlipidemia, unspecified Alexandro Abelino, AUTOMATION SOFTWARE ENGINEER 04/21/2019 D64.9 Anemia, unspecified Alexandro Abelino, AUTOMATION SOFTWARE ENGINEER 04/21/2019 R73.9 Hyperglycemia, unspecified Alexandro Abelino, AUTOMATION SOFTWARE ENGINEER 04/21/2019 R32 Unspecified urinary incontinence Alexandro Roca NP 04/21/2019 M25.552 Pain in left hip Alexandro Roca NP Plan of Treatment Future Appointment(s):08/31/2019 11:15 am - Norah Olmedo M.D. at [facility] at [id number]/24/2019 11:00 am - Norah Olmedo M.D. at [facility] at [id number]/19/2019 8:40 am - Alexandro Roca NP at [facility] - [facility]11/19/2019 8:30 am - Marcia Stanley NP at [facility]08/17/2019 - Norah Olmedo M.D.M25.562 Pain in left kneeFollow up:Follow up: 1 weekM25.462 Effusion, left kneeM25.461 Effusion, right kneeM17.0 Bilateral primary osteoarthritis of kneeM25.561 Pain in right knee Functional Status Description No Information Available Mental Status Description No Information Available Referrals Refer to Reason for Referral Status Appt Date Norah Olmedo MD Sent 06/10/[address] [place] [address] [place] [address] [phone]
--- OUTSIDE RECORDS SUMMARY | 2019-09-08 18:28 | XMS REPORT | Continuity of Care Document ---
:1960 External Reference #:[id number] Author Name Maryann Elliott N.P. (transmitted by agent of provider Yani Schmitz) Address [address], [place] [address] Care Team Providers Name Role Phone Nithya Blanco FNP - Nurse Care Team Information Pipe Organ Installer [phone] Practitioner Robert Ortega MD - Hospitalist Care Team Information Pipe Organ Installer [phone] Nancie Egan MD - Internal Care Team Information Pipe Organ Installer Medicine Nancie Egan MD - Internal Care Team Information Pipe Organ Installer Medicine Problems Active Problems Provider Date Asthma [...] presumed cause; no discharge summary [place] [facility] [place] Localized, primary osteoarthritis Norah Olmedo M.D. Onset: 06/10/2019 Social History Type Date Description Comments Sex Unknown Tobacco Use Start: Unknown Never Smoked Cigarettes Smoking Status Reviewed: 09/01/19 Never Smoked Cigarettes ETOH Use Denies alcohol [...] Medications SIG Qnty Indications Ordering Date Provider Bactrim DS one by mouth twice 20tabs J01.90 Maryann Elliott, 09/01/2019 800-160mg a day for 10 days N.P. Tablets Fluticasone shake liquid and 48units J01.90 Maryann Varadam, 07/28/2019 Propionate use 2 sprays in N.P. 50mcg/Act each nostril daily Suspension as needed Gabapentin 1 by mouth twice a 60caps B02.9 Alexandro Roca NP 06/08/2019 300mg day Capsules Quad Cane use while 1units M25.561 Alexandro Roca NP 06/08/2019 ambulating M25.562 M85.80 Calcium 600/Vitamin D3 1 by mouth twice 60tabs M85.80 Alexandro Roca NP 05/25 daily 870-542io-[id number] Tablets Naproxen 1 tablet with food 60tabs [...] NP 10/2017 Auto Inflate weekly at home [facility] Freestyle Lite Blood for blood glucose 1units [...] NP 40mg mouth once daily Tablets DR Oleg HFA 2 puffs by mouth 1units Alexandro Roca NP 108(90Base) four times a day as mcg/Act Aerosol needed Ipratropium 1 vial in nebulizer 90ml Marcia [place]/Albuterol every 4-6 hours as MARC Stanley Sulfate [...] Date Synvisc Or Synvisc-One Norah Olmedo M.D. 08/31/2019 Injection 1 MG Injection Synvisc Or Synvisc-One Norah Olmedo M.D. 08/31/2019 Injection 1 MG Injection Synvisc Or Synvisc-One [...] Code Status Date Vaccine Reaction Lot # [id number] Given 05/25/2019 Influenza Virus Vaccine, No immediate reaction [id number] Quadrivalent ([id number]), Derived From Cell 78140 Given 07/01/2018 Influenza Virus Vaccine, [id number] Quadrivalent, Split, Preservative Free 54423 Given 05/07/2016 Influenza Virus 3Yrs & Over Vital Signs Date Vital Result Comment 09/01/2019 11:41am Height 61 inches 5'1" Weight 146.12 lb Heart Rate 57 /min BP Systolic Sitting 107 mmHg BP Diastolic Sitting 62 mmHg Body Temperature 97.3 F O2 % BldC Oximetry 96 % BMI (Body Mass Index) 27.6 kg/m2 08/31/2019 11:22am Height 61 inches 5'1" Weight 135.00 lb Heart Rate 77 /min BP Systolic 104 mmHg BP Diastolic 58 mmHg Body Temperature 98.1 F Pain Level 5 BMI (Body Mass Index) 25.5 kg/m2 Results Test Acquired Date Facility Test Result H/L Range Note Laboratory test 05/27/2019 [facility] Troponin-I 0.00 ng/mL < 0.[address] ([place]nI) [place] [address] [phone] Laboratory test 05/27/2019 [facility] Lactic Acid 1.5 mmol/L Normal 0.5-2.[address] [place] [address] [phone] CBC Auto Diff 05/26/2019 [facility] White Blood 4.9 10^3/uL Normal 3.5-10.[address] [place] [address] [phone] Red Blood Count 4.72 10^6/uL Normal 3.70-4.87 [...] Red Blood Cells % 0.0 Inr/Protime 05/26/2019 [facility] Inr 0.95 Normal 0.82-1.09 3 [address] [place] [address] [phone] Comp Metabolic 05/26/2019 [facility] Sodium 139 mmol/L Normal 135-145 Panel [address] [place] [address] [phone] Potassium 3.9 mmol/L Normal 3.5-5.0 Chloride 106 [...] Egfr 74.9 >60 4 Laboratory test 05/26/2019 [facility] Troponin-I (TnI) 0.00 ng/ mL <0.04 [address] [place] [address] [phone] B-Type Natriuretic Peptide BNP 50 pg/mL <=100 Lactic Acid 2.1 mmol/L Critical high 0.5-2.0 6 Urine Culture And 05/12/2019 [facility] Urine Culture SEE RESULT [address] [place] [address] [phone] Laboratory test 04/21/2019 [facility] Hemoglobin A1c 6.5 % High 4.0- [address] (Glyco HGB) 5.6 [place] [address] [phone] CBC Auto Diff 04/21/2019 [facility] White Blood 5.9 Normal 3.5 - [address] Count 10^3/uL 10.8 [place] [address] [phone] Red Blood Count 4.70 10^6/uL Normal 3.70-4.87 [...] % 0.1 Iron & Iron Binding 04/21/2019 [facility] Iron 70 g/dL Normal 50-[address] [place] [address] [phone] Unsaturated Iron Binding < 278 g/dL Total Iron Binding Capacity 293 g/dL Normal 250-450 Transferrin 209 mg/dL Normal 203-362 % Iron Saturation 24 % Normal 15-55 Urine Culture And 04/21/2019 [facility] Urine SEE RESULT [address] [place] [place] [address] [phone] Laboratory test 04/21/2019 [facility] Vitamin B12 326 pg/mL Normal 180- [address] [place] [address] [phone] Comp Metabolic 04/21/2019 [facility] Sodium 142 mmol/L Normal 135- Panel [address] [place] [address] [phone] Potassium 4.2 mmol/L Normal 3.5-5.0 Chloride 106 [...] Egfr 88.2 >60 11 Lipid Profile 04/21/2019 [facility] Triglycerides 161 mg/dL 12 (Trig/Chol/HDL) [address] [place] [address] [phone] Cholesterol 166 mg/dL 13 HDL Cholesterol 46.7 mg/dL 14 LDL Cholesterol 87 mg/dL 15 1 Troponin-I testing on Plasma Separator Tubes (PST) has a known false positive rate of 0.20-0.40%. All positive troponins reflex immediately to secondary confirmatory testing. Using the WiN MS DxI 800 Access Immunoassay systems, the 99th percentile upper reference limit was demonstrated to be < 0.03 ng/mL. 2 [facility] Severe Sepsis and Septic Shock Management Bundle [...] immediately to secondary confirmatory testing. Using the WiN MS DxI 800 Access Immunoassay systems, the 99th percentile upper reference limit was demonstrated to be < 0.03 ng/mL. 6 Critical Result LACT:2.1 Called to YAZAN at: 22:56:42 by:[id number] Read back by:YAZAN [facility] Severe Sepsis and Septic Shock Management Bundle Measure requires all lactic acids initially measuring >2.0 mmol/L be repeated. 7 SEE RESULT BELOW Name: MARIE ZHOU I : [address]: Alexandro Roca GEOPHYSICAL DRAFTER Acct: [id number] Unit: [id number] AGE: 59 Location: [facility] Re05/12/19 SEX: F Status: REG REF SPEC: [id number] JOSEPHINE: 05/12/[address]: Alexandro Roca GEOPHYSICAL DRAFTER REQ: [id number] RECD: 05/12/19 STATUS: COMP _ SOURCE: URINE SPDESC: ORDERED: Urine Culture Procedure Result Reported Site Urine Culture Final 05/13/19- 1042 ML No growth of clinically significant organisms * ML - Main Lab . END OF REPORT DEPARTMENT OF PATHOLOGY, [address] [place] [address] Lj Bravo M.D. Director [facility] # [id number] 8 Therapeutic target for the treatment of diabetes mellitus patients is <7% HBA1C, and in selective patients <6.0%. Please refer to [place] [employer] diabetic care guidelines for further information. 9 SEE RESULT BELOW Name: MARIE ZHOU Ryan : [address]: Alexandro Roca NP Acct: [id number] Unit: [id number] AGE: 59 Location: [facility] Re04/21/19 SEX: F Status: REG REF SPEC: [id number] JOSEPHINE: 04/21/19-[address]: Alexandro Roca NP REQ: [id number] RECD: 04/21/19 STATUS: COMP _ SOURCE: URINE SPDESC: ORDERED: Urine Culture COMMENTS: FASTING 10 HOUR Procedure Result Reported Site Urine Culture Final 04/23/19- 08 ML Mixed robbi; possible contamination. Suggest resubmission. * ML - Main Lab . END OF REPORT DEPARTMENT OF PATHOLOGY, [address] [place] [address] Lj Bravo M.D. Director [facility] # [id number] 10 Normal Range 180 to 914 Indeterminate [...] Inject/Drain Joint/Bursa Major W/O US Completed 09/19/2018 [id number] Colonoscopy Completed 09/09/2018 [id number] Mammogram Completed 02/17/2013 [id number] Colonoscopy Completed Medical Devices Description No Information Available Encounters Type Date Location Provider Dx Diagnosis Office Visit 07/28/2019 [facility] Internal Maryann Elliott, J01.90 Acute sinusitis , 3:00p Medicine - [facility] N.P. unspecified Office Visit 07/10/2019 [facility] Norah Olmedo, M25.561 Pain in right knee 9:15a at [facility].D. M25.562 Pain in left knee M25.462 Effusion, left knee M25.461 Effusion, right knee M17.0 Bilateral primary osteoarthritis of knee Office Visit 06/17/2019 2:00p [facility] Charlietaosiel S. I10 Sandeep Calderón M.D. (primary) hypertension E78.5 Hyperlipidemia, unspecified Office Visit 06/10/2019 8:00a [facility] Nor[facility] Olmed[facility], M25.562 [facility].561 Pain in right knee M25.462 Effusion, left knee M25.461 Effusion, right knee M17.0 Bilateral primary osteoarthritis of knee Office Visit 06/08/2019 2:00p [facility] Internal Alexandro Abelino, B02.9 Zoster without Medicine - GEOPHYSICAL DRAFTER complications Ccmob Office Visit 05/25/2019 4:20p [facility] Internal Alexandrojuancarlos Roca, M25.562 Pain in left knee Medicine - GEOPHYSICAL DRAFTER Ccmob M25.561 Pain in right knee M85.80 Oth disrd of bone density and structure, unspecified site Z23 Encounter for immunization Office Visit 05/21/2019 [facility] J45.909 Unspecified 11:00a [facility] Stanley asthma, [facility] uncomplicated J44.9 Chronic obstructive pulmonary disease, unspecified Office Visit 04/21/2019 11:40a [facility] Internal Alexandro Roca, I10 Essential ( [facility] hypertension E78.5 Hyperlipidemia, unspecified D64.9 Anemia, unspecified R73.9 Hyperglycemia, unspecified R32 Unspecified urinary incontinence M25.552 Pain in left hip Assessments Date Code Description Provider 09/01/2019 J01.90 Acute sinusitis, unspecified Maryann Elliott, N.P. 08/31/2019 M25.562 Pain in left knee Norah Olmedo M.D. 08/31/2019 M25.561 Pain in right knee Norah Olmedo M.D. 08/31/2019 M25.461 Effusion, right knee Norah Olmedo M.D. 08/31/2019 M25.462 Effusion, left knee Norah Olmedo M.D. 08/31/2019 M17.0 Bilateral primary osteoarthritis of Norah Olmedo M.D. knee 08/24/2019 M25.562 Pain in left knee Norah Olmedo M.D. 08/24/2019 M25.462 Effusion, left knee Norah Olmedo M.D. 08/24/2019 M25.461 Effusion, right knee Norah Olmedo M.D. 08/24/2019 M25.561 Pain in right knee Norah Olmedo M.D. 08/24/2019 M17.0 Bilateral primary osteoarthritis of Norah Honorio, M.D. knee 08/17/2019 M25.562 Pain in left knee Norah Honorio, M.D. 08/17/2019 M25.462 Effusion, left knee Norah Honorio, M.D. 08/17/2019 M25.461 Effusion, right knee Norah Honorio, M.D. 08/17/2019 M17.0 Bilateral primary osteoarthritis of Norah Honorio, M.D. knee 08/17/2019 M25.561 Pain in right knee Norahilana Olmedo, M.D. 07/28/2019 J01.90 Acute sinusitis, unspecified Maryann Elliott, N.P. 07/10/2019 M25.561 Pain in right knee Norahilana Olmedo, M.D. 07/10/2019 M25.562 Pain in left knee Norah Honorio, M.D. 07/10/2019 M25.462 Effusion, left knee Norahilana Olmedo, M.D. 07/10/2019 M25.461 Effusion, right knee Norahilana Olmedo, M.D. 07/10/2019 M17.0 Bilateral primary osteoarthritis of Norahilana Olmedo M.D. knee 06/17/2019 I10 Essential (primary) hypertension Jessica Calderón M.D. 06/17/2019 E78.5 Hyperlipidemia, unspecified Jessica Calderón M.D. 06/10/2019 M25.562 Pain in left knee Norahilana Olmedo M.D. 06/10/2019 M25.561 Pain in right knee Norahilana Olmedo, M.D. 06/10/2019 M25.462 Effusion, left knee Norahilana Olmedo, M.D. 06/10/2019 M25.461 Effusion, right knee Norah Honorio, M.D. 06/10/2019 M17.0 Bilateral primary osteoarthritis of Norah Olmedo, M.D. knee 06/08/2019 B02.9 Zoster without complications [...] Roca NP 04/21/2019 E78.5 Hyperlipidemia, unspecified Alexandro Roca, MARC 04/21/2019 D64.9 Anemia, unspecified Alexandro Roca NP 04/21/2019 R73.9 Hyperglycemia, unspecified Alexandro Roca NP 04/21/2019 R32 Unspecified urinary incontinence Alexandro Roca NP 04/21/2019 M25.552 Pain in left hip Alexandro Roca NP Plan of Treatment Future Appointment(s):09/15/2019 11:15 am - Андрей Fisher M.D. at [facility] at [facility]/19/2019 8:40 am - Alexandro Roca NP at [facility] Internal Medicine - [facility]11/19/2019 8:30 am - Marcia Stanley NP at [facility]09/01/2019 - Maryann Elliott N.P.J01.90 Acute sinusitis, unspecifiedNew Medication:Bactrim DS 800-160 mg - one by mouth twice a day for 10 daysComments:For your sinus infection: I sent a prescription for Bactrim DS to the pharmacy. Take 1 tablet every 12 hours until they are gone. Take this with a little food. I have sent in a prescription for a nasalspray, Fluticasone. Use 2 inhalations in each nostril, 1 time daily, until you feel better. If your symptoms do not improve call the office. Functional Status Description No Information Available Mental Status Description No Information Available Referrals Refer to Reason for Referral Status Appt Date Norah Olmedo MD Sent 06/10/[address] [place] [address] [place] [address] [phone]
[2019-09-08 20:09] VITALS: BP 126/61
--- NOTE | 2019-09-08 20:49 | UC ---
Shoulder Pain HPI - HPI Summary HPI Summary: Pt presents to with SO. pt with complex medical history - presents to with 3 days right posterior shoulder pain. Pt states pain was mild initially, but has increased over 2 days. Pt has taken Aleve, Naproxyn, Motrin, gabapentin , and APAP with little improvement. Pt reports pain is spasm-like -with "tingling" down right arm. no weakness. pt is RHD. tried ice without relief. no cp, sob, abd pain non/v/d No trauma. Pt's medications as entered in the EMR by switchbox assembler reviewed this visit - History of Current Complaint Chief Complaint: UCUpperExtremity Stated Complaint: ARM/SHOULDER PAIN Time Seen by Provider: 09/08/19 20:48 Hx Obtained From: Patient Pain Intensity: 10 - Allergies/Home Medications Allergies/Adverse Reactions: Allergies Allergy/AdvReac Type Severity Reaction Status Date / Time Adhesive Tape Allergy Mild Rash Verified 09/08/19 20:09 amoxicillin [From Augmentin] Allergy Rash Verified 09/08/19 20:09 azithromycin Allergy Rash And Verified 09/08/19 20:09 Itching clavulanic acid Allergy Rash Verified 09/08/19 20:09 [From Augmentin] moxifloxacin [From Avelox] Allergy Rash Verified 09/08/19 20:09 tapentadol [From Nucynta] Allergy Rash Verified 09/08/19 20:09 tolmetin [From Tolectin] Allergy Rash Verified 09/08/19 20:09 valdecoxib [From Bextra] Allergy Rash Verified 09/08/19 20:09 morphine AdvReac Difficulty Verified 09/08/19 20:09 Breathing PERFUMES Allergy Severe DYSPNEA Uncoded 05/26/19 20:37 Home Medications: Home Medications Acetaminophen [Tylenol Extra Strength] 1,000 mg PO Q6HR 09/08/19 [History Confirmed 09/08/19] Gabapentin 300 mg PO DAILY 09/08/19 [History Confirmed 09/08/19] Naproxen Sodium [Aleve] 220 mg PO Q6HR 09/08/19 [History Confirmed 09/08/19] PMH/Surg Hx/FS Hx/Imm Hx Previously Healthy: No Endocrine History: Diabetes, Dyslipidemia Cardiovascular History: Hypertension GI/ History: Gastroesophageal Reflux, Other - pancreatitis, pancreas resection Other History Of: Negative For: Anticoagulant Therapy - Surgical History Surgical History: Yes Surgery Procedure, Year, and Place: pancreas 2019 TUBAL LIGATION in 1988. hole in ear closed. tonsils as a child. RIGHT ULNAR NERVE TRANSPOSITON 05/14 [facility]. left ulnar nerve surgery, tubal ligation, pancreatitis surgery 2019. ulnar nerve repair - Family History Known Family History: Positive: Cardiac Disease, Hypertension, Diabetes, Respiratory Disease - asthma - Social History Occupation: Unemployed Lives: With Family Alcohol Use: None Substance Use Type: None Smoking Status (MU): Never Smoked Tobacco Have You Smoked in the Last Year: No - Immunization History Most Recent Influenza Vaccination: fall 2017 Most Recent Tetanus Shot: unknown Most Recent Pneumonia Vaccination: within 5 years Review of Systems All Other Systems Reviewed And Are Negative: Yes Constitutional: Positive: Negative Skin: Positive: Negative Respiratory: Positive: Negative Cardiovascular: Positive: Negative Gastrointestinal: Positive: Negative Motor: Negative: Decreased ROM, Weakness Neurovascular: Positive: Other - paresthesia. Negative: Decreased Sensation Musculoskeletal: Positive: Myalgia - right posterior shoulder Neurological/Mental Status: Positive: Paresthesia Psychological: Positive: Negative Physical Exam - Summary Physical Exam Summary: Vital Signs Reviewed: Yes A+Ox3, mild discomfort Eyes: Conjunctiva Clear, ALLIE. EOM intact and full ENT: Hearing grossly normal TM x 2 clear, mmoist, uvula midline, no exudate, no erythema Neck: Positive: Supple Respiratory: Positive: No respiratory distress, No accessory muscle use + CTA throughout no w/r Cardiovascular: RRR nl s1, s2 no m/r CBT <2 sec abd soft + BS nt/nd no guarding, no distension, healed scars Musculoskeletal Exam: + extend/flex elbow, wrist + pronate/supinate no anterior shoulder pain + palpable spasm and tender to palp along right trapezius, scapula , pain increase with head rotation, direct paloation and full extension right UE Neurological: Positive: Alert, + sensation throughout 5/5 grasp, finger cross, finger spread + gross sensation throughout hand and right lateral upper ext Psychological: Positive: Normal Response To electric meter reader Skin: Positive: no rash, no ecchymosis Triage Information Reviewed: Yes Vital Signs: Initial Vital Signs Temp 98.1 F 09/08/19 20:03 Pulse 62 09/08/19 20:03 Resp 16 09/08/19 20:03 BP 126/61 09/08/19 20:03 Pulse Ox 98 09/08/19 20:03 Diagnostics - Radiology No standard instances Radiology Interpretation Completed By: Radiologist - no fx, midl arthritis Shoulder Course/Dx - Course Course Of Treatment: Pt presents to with right posterior shoulder pain, muscle spasm, and paresthesia RUE - lateral on exam VSS Pt with normal CSM distal + point tenderness right posterior shoulder along scapula Pain increases with ROM - better at rest imaging - no fx, mild arthritis Pt placed in sling with improvement - recommend heat, stretch pt declined uscle relaxant pt has taken hydrocodone previously without difficulty istop check f.u with ortho, pcp strict return precuations pt comfortable and [facility] aware imaging is prelim - Differential Dx/Diagnosis Provider Diagnosis: Muscle spasm of right shoulder Discharge ED - Sign-Out/Discharge Documenting (check all that apply): Patient Departure All imaging exams completed and their final reports reviewed: No - Discharge Plan Condition: Stable Disposition: HOME Prescriptions: Hydrocodone/Acetaminophen [[place] 5-325 Tablet] 1 - 2 each PO Q6HR PRN #15 tablet MDD 8 PRN Reason: severe pain Lidocaine PATCH 5%* [Lidoderm 5% Patch*] 1 patch TRANSDERM DAILY #30 patch Patient Education Materials: Muscle Spasm (ED) Referrals: Alexandro Roca SECRET SERVICE AGENT [Primary Care Provider] - Additional Instructions: -wear sling for comfort and support. relax your shoulder so the sling holds the weight of your shoulder - Take your arm outside of your sling and fully bend/stretching of elbow and makes small circles at your shoulder -apply heat to your shoulder - once your muscles are warm, slow, gentle stretching exercises --Okay to alternate ibuprofen (Advil, Motrin) and Tylenol product (Tylenol or tylenol with hydrocodone) every 3 hours for pain. Take with food. Do NOT take for more than 4-5 days. Codeine is a narcotic. Do not drive, drink alcohol, operate machinery, or make financial decisions while taking this medication. Not taking any medication at cause sedation with taking this medication. This medication may cause constipation. Okay to use a stool softener as needed. Do NOT take Aleve or Naproxyn while taking Motrin -Contact your primary care provider tomorrow to schedule a follow-up appointment this week As discussed, your radiograph was reviewed by the provider that treated you tonight. It will be read by a radiologist tomorrow morning. If there is a finding other than that discussed with you today, you will receive a call from a care provider. - Billing Disposition and Condition Condition: STABLE Disposition: Home
[2019-09-08] MEDS ORDERED: Ibuprofen TAB* 600 MG PO ONE (21:11)
[2019-09-08] MEDS ORDERED: HYDROcodone/ACETAMIN 5-325 MG* 1 TAB PO ONE (21:16)
--- NOTE | 2019-09-09 12:01 | UC ---
- Progress Note Progress Note: RADIOLOGY REPORT REVIEWED. CONFIRMS DEGENERATIVE CHANGES OF THE RIGHT GLENOHUMERAL JOINT WITHOUT EVIDENCE OF FRACTURE. NO CHANGE IN MANAGEMENT. Course/Dx - Diagnoses Provider Diagnoses: Muscle spasm of right shoulder Discharge ED - Sign-Out/Discharge Documenting (check all that apply): Post-Discharge Follow Up All imaging exams completed and their final reports reviewed: Yes - Discharge Plan Condition: Stable Disposition: HOME Prescriptions: Hydrocodone/Acetaminophen [[place] 5-325 Tablet] 1 - 2 each PO Q6HR PRN #15 tablet MDD 8 PRN Reason: severe pain Lidocaine PATCH 5%* [Lidoderm 5% Patch*] 1 patch TRANSDERM DAILY #30 patch Patient Education Materials: Muscle Spasm (ED) Referrals: Alexandro Roca NP [Primary Care Provider] - Additional Instructions: -wear sling for comfort and support. relax your shoulder so the sling holds the weight of your shoulder - Take your arm outside of your sling and fully bend/stretching of elbow and makes small circles at your shoulder -apply heat to your shoulder - once your muscles are warm, slow, gentle stretching exercises --Okay to alternate ibuprofen (Advil, Motrin) and Tylenol product (Tylenol or tylenol with hydrocodone) every 3 hours for pain. Take with food. Do NOT take for more than 4-5 days. Codeine is a narcotic. Do not drive, drink alcohol, operate machinery, or make financial decisions while taking this medication. Not taking any medication at cause sedation with taking this medication. This medication may cause constipation. Okay to use a stool softener as needed. Do NOT take Aleve or Naproxyn while taking Motrin -Contact your primary care provider tomorrow to schedule a follow-up appointment this week As discussed, your radiograph was reviewed by the provider that treated you tonight. It will be read by a radiologist tomorrow morning. If there is a finding other than that discussed with you today, you will receive a call from a care provider. - Billing Disposition and Condition Condition: STABLE Disposition: Home
== END 2019-09-08 21:22 | disposition home or self-care (01) ==
LOC: UCEAST 18:22
DX: M62.838 Other muscle spasm (principal); E11.9 Type 2 diabetes mellitus without complications; I10 Essential (primary) hypertension; Z88.0 Allergy status to penicillin; Z88.1 Allergy status to other antibiotic agents; Z91.09 Other allergy status, other than to drugs and biological substances; Z88.6 Allergy status to analgesic agent; Z88.5 Allergy status to narcotic agent
CPT/HCPCS: 99213; A9270-GY; G0463

== ENCOUNTER 2019-09-12 17:10 | Emergency (ER) | payer MEDICARE, MEDICAID ==
[2019-09-12 18:04] VITALS: BP 100/60
--- NOTE | 2019-09-12 18:34 | UC ---
Shoulder Pain HPI - HPI Summary HPI Summary: PT ARRIVES WITH RIGHT ARM IN A SLING ACCOMPANIED BY A MALE FRIEND AND 2 SCHOOL AGED GRANDCHILDREN. SHE WAS SEEN HERE 4 DAYS AGO C/O SEVERAL DAYS OF RIGHT SHOULDER PAIN. NO KNOW INJURY/TRAUMA. HAD XRAYS DONE WHICH SHOWED SOME DEGENERATIVE CHANGE BUT NOTHING ACUTE. WAS GIVEN HYDROCODONE/APAP AND LIDOCAINE PATCH AND ADVISED TO F/U WITH PCP OR ORTHO IF SX DID NOT IMPROVE. PT STATES THE PAIN IS GETTING WORSE. DID NOT CALL PCP OR ORTHO. - History of Current Complaint Chief Complaint: UCUpperExtremity Stated Complaint: ARM INJURY Time Seen by Provider: 09/12/19 18:16 Hx Obtained From: Patient Onset/Duration: Sudden Onset, Lasting Days, Still Present Timing: Constant Severity Initially: Moderate Severity Currently: Severe Pain Intensity: 10 Pain Scale Used: 0-10 Numeric Character: Sharp Aggravating Factor(s): Movement Alleviating Factor(s): Nothing Related History: Dominant Hand Right - Allergies/Home Medications Allergies/Adverse Reactions: Allergies Allergy/AdvReac Type Severity Reaction Status Date / Time Adhesive Tape Allergy Mild Rash Verified 09/12/19 18:05 amoxicillin [From Augmentin] Allergy Rash Verified 09/12/19 18:05 azithromycin Allergy Rash And Verified 09/12/19 18:05 Itching clavulanic acid Allergy Rash Verified 09/12/19 18:05 [From Augmentin] moxifloxacin [From Avelox] Allergy Rash Verified 09/12/19 18:05 tapentadol [From Nucynta] Allergy Rash Verified 09/12/19 18:05 tolmetin [From Tolectin] Allergy Rash Verified 09/12/19 18:05 valdecoxib [From Bextra] Allergy Rash Verified 09/12/19 18:05 morphine AdvReac Difficulty Verified 09/12/19 18:05 Breathing PERFUMES Allergy Severe DYSPNEA Uncoded 09/12/19 18:05 PMH/Surg Hx/FS Hx/Imm Hx Endocrine History: Diabetes Cardiovascular History: Hypertension Respiratory History: COPD Other History Of: Negative For: Anticoagulant Therapy - Surgical History Surgical History: Yes Surgery Procedure, Year, and Place: pancreas 2019 TUBAL LIGATION in 1988. hole in ear closed. tonsils as a child. RIGHT ULNAR NERVE TRANSPOSITON 05/14 [facility]. left ulnar nerve surgery, tubal ligation, pancreatitis surgery 2019. ulnar nerve repair - Family History Known Family History: Positive: Cardiac Disease, Hypertension, Diabetes, Respiratory Disease - asthma - Social History Alcohol Use: None Substance Use Type: None Smoking Status (MU): Never Smoked Tobacco Have You Smoked in the Last Year: No - Immunization History Most Recent Influenza Vaccination: fall 2017 Most Recent Tetanus Shot: unknown Most Recent Pneumonia Vaccination: within 5 years Review of Systems All Other Systems Reviewed And Are Negative: Yes Constitutional: Positive: Negative Respiratory: Positive: Negative Cardiovascular: Positive: Negative Gastrointestinal: Positive: Negative Musculoskeletal: Positive: Arthralgia, Decreased ROM Physical Exam Triage Information Reviewed: Yes Appearance: Well-Appearing, No Pain Distress, Other: - APPEARS OLDER THAN ACTUAL AGE Vital Signs: Initial Vital Signs Temp 98.0 F 09/12/19 18:01 Pulse 72 09/12/19 18:01 Resp 16 09/12/19 18:01 BP 100/60 09/12/19 18:01 Pulse Ox 97 09/12/19 18:01 Vital Signs Reviewed: Yes Eyes: Positive: Conjunctiva Clear ENT: Positive: Hearing grossly normal Neck: Positive: Supple Respiratory: Positive: No respiratory distress, No accessory muscle use Musculoskeletal: Positive: ROM Limited @ - RIGHT SHOULDER IMMOBILIZED WITH A SLING. PT STORMED OUT BEFORE I WAS ABLE TO DO A SHOULDER EXAM Neurological: Positive: Alert Psychological: Positive: Other: - ANGRY Skin: Negative: Rashes Shoulder Course/Dx - Course Course Of Treatment: PATIENT ARRIVES COMPLAINING OF WORSENING PAIN IN HER RIGHT SHOULDER AND ARM FOR THE PAST ONE WEEK. WAS SEEN HERE 4 DAYS AGO FOR THE SAME. HAD X-RAYS DONE AT THAT TIME WHICH SHOWED SOME DEGENERATIVE CHANGE BUT NO ACUTE INJURY. I DISCUSSED WITH PATIENT THAT SHE LIKELY WOULD BENEFIT FROM MORE ADVANCED IMAGING SUCH MRI WHICH IS UNAVAILABLE IN THE URGENT CARE. I ENCOURAGED HER TO CALL ORTHOPEDICS FIRST THING SATURDAY MORNING FOR A FOLLOW-UP APPOINTMENT. IN THE MEANTIME IF HER PAIN IS INTOLERABLE SHE MAY GO TO THE EMERGENCY ROOM FOR FURTHER EVALUATION. AT THIS TIME THE PATIENT BECAME SUDDENLY IRATE AND VERBALLY AGGRESSIVE USING PROFANITY IN THE PRESENCE OF THE 2 SMALL CHILDREN. SHE STORMED OUT OF THE ROOM. IN THE PROCESS OF EXITING THE ROOM SHE PUSHED PAST THE YOUNG BOY AND SWUNG THE EXAM ROOM DOOR OPEN SO VIOLENTLY THAT IT KNOCKED OVER THE TRASH CAN BEHIND THE DOOR AND VERY NEARLY STRUCK THE BOY IN THE FACE/HEAD. THE BOY WAS VISIBLY SHAKEN/SCARED. I ASKED THE BOY IF HE WAS OKAY AND HE NODDED THAT YES HE WAS. HE FOLLOWED GRANDMA OUT THE DOOR. CPS WAS CONTACTED I AM CONCERNED THAT THE PT IS UNFIT TO WATCH THE CHILDREN. DUE TO LACK OF INFORMATION ABOUT THE CHILDREN CPS WAS UNABLE TO OPEN A CASE. - Differential Dx/Diagnosis Provider Diagnosis: Right shoulder pain Discharge ED - Sign-Out/Discharge Documenting (check all that apply): Patient Departure All imaging exams completed and their final reports reviewed: No Studies - Discharge Plan Condition: Stable Disposition: ELOPEMENT Patient Education Materials: Shoulder Pain (ED) Referrals: Alexandro Roca NP [Primary Care Provider] - If Needed Андрей Hadley MD [Medical Doctor] - 2 Days - Billing Disposition and Condition Condition: STABLE Disposition: Elopement
== END 2019-09-12 18:25 | disposition home or self-care (01) ==
LOC: UCEAST 17:10
DX: M25.511 Pain in right shoulder (principal); I10 Essential (primary) hypertension; E11.9 Type 2 diabetes mellitus without complications; J44.9 Chronic obstructive pulmonary disease, unspecified; Z88.0 Allergy status to penicillin; Z91.09 Other allergy status, other than to drugs and biological substances; Z88.1 Allergy status to other antibiotic agents; Z88.5 Allergy status to narcotic agent; Z88.6 Allergy status to analgesic agent
CPT/HCPCS: 99212; G0463

== ENCOUNTER 2019-10-09 18:47 | Emergency (ER) | payer MEDICARE, MEDICAID ==
--- OUTSIDE RECORDS SUMMARY | 2019-10-09 20:49 | XMS REPORT | Continuity of Care Document ---
:1960 External Reference #:[id number] Author Name Андрей Fisher M.D. (transmitted by agent of provider Alix Kasper) Address [address] [place] [id number] Care Team Providers Name Role Phone Nithya Blanco FNP - Nurse Care Team Information Oyster Bed Worker [phone] Practitioner Robert Ortega MD - Hospitalist Care Team Information Oyster Bed Worker [phone] Nancie Egan MD - Internal Care Team Information Oyster Bed Worker Medicine Nancie Egan MD - Internal Care Team Information Oyster Bed Worker Medicine Problems Active Problems Provider Date Asthma [...] presumed cause; no discharge summary in the [facility] database Localized, primary osteoarthritis Norah Olmedo M.D. Onset: 06/10/2019 Social History Type Date Description Comments Sex Unknown Tobacco Use Start: Unknown Never Smoked Cigarettes Smoking Status Reviewed: 10/06/19 Never Smoked Cigarettes ETOH Use Denies alcohol [...] SIG Qnty Indications Ordering Date Provider Fluticasone shake liquid and 48units J01.90 Maryann Elliott, 07/28/2019 Propionate use 2 sprays in N.P. 50mcg/Act each nostril daily Suspension as needed Gabapentin 1 by mouth twice a 60caps B02.9 Alexandro Roca NP 06/08/2019 300mg day Capsules Quad Cane use while 1units M25.561 Alexandro Roca NP 06/08/2019 ambulating M25.562 M85.80 Calcium 600/Vitamin D3 1 by mouth twice 60tabs M85.80 Alexandro Roca NP 05/25 daily [id number] Tablets Naproxen 1 tablet with food 60tabs [...] by mouth every day 180caps I10 Tracie [place], 07/08/2018 120mg Caps ER N.P. 24HR Blood Pressure Monitor check bp three times 1units I10 Alexandro Roca NP 10/2017 Auto Inflate weekly [place] [facility] [place] L[place] Blood for blood glucose 1units [...] Sodium take 1 tablet by 90tabs Alexandro Rcoa NP 40mg mouth once daily Tablets DR Ventolin HFA 2 puffs by mouth 1units Alexandro Roca NP 108(90Base) four times a day as mcg/Act Aerosol needed Ipratropium 1 vial in nebulizer 90ml Marcia Leslie/Albuterol every 4-6 hours as MARC Stanley Sulfate needed for asthma 0.5-2.5(3)mg/3ML Solution Epipen 2-Gulshan use as directed 1units Unknown 0.3mg/0.3ML Solution Auto-Inject Albuterol Sulfate 1 vial via nebulizer 75ml J44.9 Alexandro Roca NP 4 times daily as (2.5mg/3ML) 0.083% needed Nebulizer History Medications Medrol as directed on 21units M54.12 Alexandro Roca NP 09/16/2019 - 4mg TBPK package 09/23/2019 Baclofen take 1/2-1 tab 30tabs M25.511 Alexandro Roca NP 09/16/2019 - 10mg every 8 hours as 09/23/2019 Tablets needed for muscle spasm Bactrim DS one by mouth 20tabs J01.90 Maryann Elliott, 09/01/2019 - twice a day for N.P. 09/11/2019 800-160mg Tablets 10 days Doxycycline Hyclate 1 by mouth twice 20tabs [...] and 12 hours. Cane Tips/3/4" Quad M25.561 Alexandro Roca NP 05/25/2019 - [...] Code Status Date Vaccine Reaction Lot # 41886 Given 05/25/2019 Influenza Virus Vaccine, No immediate reaction [id number] Quadrivalent ([id number]), Derived From Cell 92497 Given 07/01/2018 Influenza Virus Vaccine, [id number] Quadrivalent, Split, Preservative Free 06506 Given 05/07/2016 Influenza Virus 3Yrs & Over Vital Signs Date Vital Result Comment 10/06/2019 8:43am Heart Rate 67 /min BP Systolic 100 mmHg BP Diastolic 58 mmHg Body Temperature 98.0 F Pain Level 8 09/16/2019 9:13am Weight 143.00 lb Heart Rate 71 /min BP Systolic 117 mmHg BP Diastolic 64 mmHg Body Temperature 99.0 F O2 % BldC Oximetry 94 % Results Test Acquired Date Facility Test Result H/L Range Note Laboratory test 05/27/2019 [facility] Troponin-I 0.00 ng/mL < 0.04 [address] (TnI) [place] [address] [phone] Laboratory test 05/27/2019 [facility] Lactic Acid 1.5 mmol/L Normal 0.5-2.0 [address] [place] [address] [phone] CBC Auto Diff 05/26/2019 [facility] White Blood 4.9 10^3/uL Normal 3.5-10.[address] [place] [address] [phone] Red Blood Count 4.72 10^6/uL Normal 3.70-4.87 [...] Red Blood Cells % 0.0 Inr/Protime 05/26/2019 [facility] Inr 0.95 Normal 0.82-1.09 3 [address] [place] [address] [phone] Comp Metabolic 05/26/2019 [facility] Sodium 139 mmol/L Normal 135-145 Panel [address] [place] [address] [phone] Potassium 3.9 mmol/L Normal 3.5-5.0 Chloride 106 [...] Egfr 74.9 >60 4 Laboratory test 05/26/2019 [facility] Troponin-I (TnI) 0.00 ng/ mL <0.04 [address] [place] [address] [phone] B-Type Natriuretic Peptide BNP 50 pg/mL <=100 Lactic Acid 2.1 mmol/L Critical high 0.5-2.0 6 Urine Culture And 05/12/2019 [facility] Urine SEE RESULT [address] Culture [place] [address] [phone] CBC Auto Diff 04/21/2019 [facility] White Blood 5.9 10^3/uL Normal 3.5-[address] Count 0.8 [place] [address] [phone] Red Blood Count 4.70 10^6/uL Normal 3.70-4.87 [...] % 0.1 Iron & Iron Binding 04/21/2019 [facility] Iron 70 g/dL Normal 50-[address] [place] [address] [phone] Unsaturated Iron Binding < 278 g/dL Total Iron Binding Capacity 293 g/dL Normal 250-450 Transferrin 209 mg/dL Normal 203-362 % Iron Saturation 24 % Normal 15-55 Urine Culture And 04/21/2019 [facility] Urine Culture SEE RESULT [address] [place] [address] [phone] Laboratory test 04/21/2019 [facility] Vitamin B12 326 pg/mL Normal 180- [address] [place] [address] [phone] Laboratory test 04/21/2019 [facility] Hemoglobin A1c 6.5 % High 4.0- [address] (Glyco HGB) 5.6 [place] [address] [phone] Comp Metabolic 04/21/2019 [facility] Sodium 142 mmol/L Normal 135- Panel [address] [place] [address] [phone] Potassium 4.2 mmol/L Normal 3.5-5.0 Chloride 106 [...] Egfr 88.2 >60 11 Lipid Profile 04/21/2019 [facility] Triglycerides 161 mg/dL 12 (Trig/Chol/HDL) [address] [place] [address] [phone] Cholesterol 166 mg/dL 13 HDL Cholesterol 46.7 mg/dL 14 LDL Cholesterol 87 mg/dL 15 1 Troponin-I testing on Plasma Separator Tubes (PST) has a known false positive rate of 0.20-0.40%. All positive troponins reflex immediately to secondary confirmatory testing. Using the [employer] DxI 800 Access Immunoassay systems, the 99th percentile upper reference limit was demonstrated to be < 0.03 ng/mL. 2 [facility] Severe Sepsis and Septic Shock Management [...] immediately to secondary confirmatory testing. Using the [employer] DxI 800 Access Immunoassay systems, the 99th percentile upper reference limit was demonstrated to be < 0.03 ng/mL. 6 Critical Result LACT:2.1 Called to YAZAN at: 22:56:42 by:[id number] Read back by:YAZAN [facility] Severe Sepsis and Septic Shock Management Bundle Measure requires all lactic acids initially measuring >2.0 mmol/L be repeated. 7 SEE RESULT BELOW Name: MARIE ZHOU Ryan : [address]: Alexandro Roca NP Acct: [id number] Unit: [id number] AGE: 59 Location: [facility] Re05/12/19 SEX: F Status: REG REF SPEC: [id number] JOSEPHINE: 05/12/[address]: Alexandro Roca NP REQ: [id number] RECD: 05/12/19 STATUS: COMP _ SOURCE: URINE SPDESC: ORDERED: Urine Culture Procedure Result Reported Site Urine Culture Final 05/13/19- 1042 ML No growth of clinically significant organisms * ML - Main Lab . END OF REPORT DEPARTMENT OF PATHOLOGY, [address] [place] [address] Lj Bravo M.D. Director [facility] # [id number] 8 SEE RESULT BELOW Name: ROGER ZHOUJEREMY Davis : [address]: Alexandro Roca NP Acct: [id number] Unit: [id number] AGE: 59 Location: [facility] Re04/21/19 SEX: F Status: REG REF SPEC: [id number] JOSEPHINE: 04/21/19-[address]: Alexandro Roca [employer] [facility] REQ: [id number] RECD: 04/21/19 STATUS: COMP _ SOURCE: URINE SPDESC: ORDERED: Urine Culture COMMENTS: FASTING 10 HOUR Procedure Result Reported Site Urine Culture Final 04/23/19- 0837 ML Mixed robbi; possible contamination. Suggest resubmission. * ML - Main Lab . END OF REPORT DEPARTMENT OF PATHOLOGY, [address] [place] [address] Lj Bravo M.D. Director [facility] # [id number] 9 Normal Range 180 to 914 Indeterminate Range 145 to 180 Deficient Range <145 10 Therapeutic target for the treatment of diabetes mellitus patients is <7% HBA1C, and in selective patients <6.0%. Please refer to [place] [employer] diabetic care guidelines for further information. 11 Because ethnic data is not always [...] High: >189 Procedures Date Code Description Status 08/31/201946686 Inject/Drain Joint/Bursa Major W/O US Completed 08/24/201996625 Inject/Drain Joint/Bursa Major W/O US Completed 08/17/201967221 Inject/Drain Joint/Bursa Major W/O US Completed 06/10/201947830 Inject/Drain Joint/Bursa Major W/O US Completed 09/19/2018 46270211 Colonoscopy Completed 09/09/2018 40063939 Mammogram Completed 02/17/2013 19326600 Colonoscopy Completed Medical Devices Description No Information Available Encounters Type Date Location Provider Dx Diagnosis Office Visit 10/06/2019 [facility] Chiang G57.81 Other specified 8:30a at Par[facility]it Fisher M.D. mononeuropathies of right lower limb G57.92 Unspecified mononeuropathy of left lower limb Office Visit 09/16/2019 9:00a [facility] Alexandro Roca, M25.511 Pain in right Medicine - [facility] [employer] shoulder M54.12 Radiculopathy, cervical region Office Visit 09/15/2019 [facility] Chiang G57.81 Other specified 11:15a Orthopedics at [facility] Fisher mononeuropathies of [place] right lower limb G57.92 Unspecified mononeuropathy of left lower limb Office Visit 09/01/2019 [facility] Maryann Elliott, J01.90 Acute sinusitis , 11:20a Medicine - [facility] N.P. unspecified Office Visit 07/28/2019 [facility] Maryann Elliott, J01.90 Acute sinusitis , 3:00p Medicine - [facility] N.P. unspecified Office Visit 07/10/2019 [place] Norah Olmedo, M25.561 Pain in right 9:15a Orthopedics at M.D. knee [place] M25.562 Pain in left knee M25.462 Effusion, left knee M25.461 Effusion, right knee M17.0 Bilateral primary osteoarthritis of knee Office Visit 06/17/2019 2:00p [place] [facility] Qutaybeh S. I10 Essential Morgan Calderón (primary) hypertension E78.5 Hyperlipidemia, unspecified Office Visit 06/10/2019 8:00a [place] [facility] Norah Olmedo, M25.562 Pain in left at [place] M.D. knee M25.561 Pain in right knee M25.462 Effusion, left knee M25.461 Effusion, right knee M17.0 Bilateral primary osteoarthritis of knee Office Visit 06/08/2019 2:00p [facility] Alexandrojuancarlos Roca, B02.9 [place] without Medicine - [employer] complications [facility] Office Visit 05/25/2019 4:20p [facility] Alexandro Roca, M25.562 Pain in left knee [facility] Pain in right knee M85.80 Oth disrd of bone density and structure, unspecified site Z23 Encounter for immunization Office Visit 05/21/2019 [facility] J45.909 Unspecified 11:00a [facility] Stanley asthma, [facility] uncomplicated J44.9 Chronic obstructive pulmonary disease, unspecified Office Visit 04/21/2019 11:40a [facility] Alexandro Abelino, I10 Essential ( primary) Medicine - [facility] [employer] hypertension E78.5 Hyperlipidemia, unspecified D64.9 Anemia, unspecified R73.9 Hyperglycemia, unspecified R32 Unspecified urinary incontinence M25.552 Pain in left hip Assessments Date Code Description Provider 10/06/2019 G57.81 Other specified mononeuropathies of Андрей Fisher M.D. right lower limb 10/06/2019 G57.92 Unspecified mononeuropathy of left Андрей Fisher M.D. lower limb 09/16/2019 M25.511 Pain in right shoulder Alexandro Roca, [employer] 09/16/2019 M54.12 Radiculopathy, cervical region Alexandrojuancarlos Roca, [employer] 09/15/2019 G57.81 Other specified mononeuropathies of Андрей Fisher M.D. right lower limb 09/15/2019 G57.92 Unspecified mononeuropathy of left Андрей Fisher M.D. lower limb 09/01/2019 J01.90 Acute sinusitis, unspecified Maryann Earl, N.P. 08/31/2019 M25.562 Pain in left knee Norah Honorio, M.D. 08/31/2019 M25.561 Pain in right knee Norah Honorio, M.D. 08/31/2019 M25.461 Effusion, right knee Norah Honorio, M.D. 08/31/2019 M25.462 Effusion, left knee Norah Honorio, M.D. 08/31/2019 M17.0 Bilateral primary osteoarthritis of Norah Honorio, M.D. knee 08/24/2019 M25.562 Pain in left knee Norah Honorio, M.D. 08/24/2019 M25.462 Effusion, left knee Norah Honorio, M.D. 08/24/2019 M25.461 Effusion, right knee Norah Honorio, M.D. 08/24/2019 M25.561 Pain in right knee Norah Honorio, M.D. 08/24/2019 M17.0 Bilateral primary osteoarthritis of Norah Honorio, M.D. knee 08/17/2019 M25.562 Pain in left knee Norah Honorio, M.D. 08/17/2019 M25.462 Effusion, left knee Norah Honorio, M.D. 08/17/2019 M25.461 Effusion, right knee Norah Honorio, M.D. 08/17/2019 M17.0 Bilateral primary osteoarthritis of Norah Honorio, M.D. knee 08/17/2019 M25.561 Pain in right knee Norah Honorio, M.D. 07/28/2019 J01.90 Acute sinusitis, unspecified Maryann Elliott, N.P. 07/10/2019 M25.561 Pain in right knee Norahliat Olmedo M.D. 07/10/2019 M25.562 Pain in left knee Norah ByrnesJared qiu.D. 07/10/2019 M25.462 Effusion, left knee NorahJared Ugarte.D. 07/10/2019 M25.461 Effusion, right knee NorahJared Ugarte.D. 07/10/2019 M17.0 Bilateral primary osteoarthritis of Norah ByrnesMorgan qiu knee 06/17/2019 I10 Essential (primary) hypertension Jessica Calderón M.D. 06/17/2019 E78.5 Hyperlipidemia, unspecified Jessica Calderón M.D. 06/10/2019 M25.562 Pain in left knee NorahJared Ugarte.DCristian 06/10/2019 M25.561 Pain in right knee NorahJared Ugarte.D. 06/10/2019 M25.462 Effusion, left knee NorahJared Ugarte.DCristian 06/10/2019 M25.461 Effusion, right knee Norah Jared Olmedo.DCristian 06/10/2019 M17.0 Bilateral primary osteoarthritis of Norah ByrnesMorgan qiu knee 06/08/2019 B02.9 [place] without complications Alexandro [...] Roca NP 04/21/2019 R73.9 Hyperglycemia, unspecified Alexandro Roca, MARC 04/21/2019 R32 Unspecified urinary incontinence Alexandro Roca NP 04/21/2019 M25.552 Pain in left hip Alexandro Roca NP Plan of Treatment Future Appointment(s):10/19/2019 8:40 am - Alexand[facility] 8[facility]30 am - Marcia Stanley NP at [facility]10/06/2019 - Андрей Fisher M.D.G57.81 Other specified mononeuropathies of right lower limbReferral:Emilio Phillips M.D., NeurologyFollow up:As qhlxllV19.92 Unspecified mononeuropathy of left lower limbFollow up:As needed Functional Status Description No Information Available Mental Status Description No Information Available Referrals Refer to Dr Reason for Referral Status Appt Date Emilio Phillips M.D. patient with abnormal gait pattern. seen Created by Britney previously [address] [place] [phone] [facility] [address] [place] [address] [phone] Emilio Phillips M.D. ataxia, spastic gait saw Dr. Tan Sent [address] [place] [phone] Norah Olmedo MD Sent 06/10/2019 [address] [facility] [address] [place] [address] [phone]
--- OUTSIDE RECORDS SUMMARY | 2019-10-09 20:49 | XMS REPORT | Continuity of Care Document ---
:1960 External Reference #:[id number] Author Name Alexandro Roca NP (transmitted by agent of provider Yani Schmitz) Address [address], [place] [address] Care Team Providers Name Role Phone Nithya Blanco FNP - Nurse Care Team Information Insurance Verification Representative [phone] Practitioner Robert Ortega MD - Hospitalist Care Team Information Insurance Verification Representative [phone] Nancie Egan MD - Internal Care Team Information Insurance Verification Representative Medicine Nancie Egan MD - Internal Care Team Information Insurance Verification Representative Medicine Problems Active Problems Provider Date Asthma [...] presumed cause; no discharge summary in the [facility] database Localized, primary osteoarthritis Norah Olmedo M.D. Onset: 06/10/2019 Social History Type Date Description Comments Sex Unknown Tobacco Use Start: Unknown Never Smoked Cigarettes Smoking Status Reviewed: 09/16/19 Never Smoked Cigarettes ETOH Use Denies alcohol [...] Medications SIG Qnty Indications Ordering Date Provider Medrol as directed on 21units M54.12 Alexandro Roca NP 09/16/2019 4mg TBPK package Baclofen take 1/2-1 tab 30tabs M25.511 Alexandro Roca NP 09/16/2019 10mg Tablets every 8 hours as needed for muscle spasm Fluticasone shake liquid and 48units J01.90 Maryann Varn, 07/28/2019 Propionate use 2 sprays in N.P. 50mcg/Act each nostril daily Suspension as needed Gabapentin 1 by mouth twice a 60caps B02.9 Alexandro Roca NP 06/08/2019 300mg day Capsules Quad Cane use while 1units M25.561 Alexandro Roca NP 06/08/2019 ambulating M25.562 M85.80 Calcium 600/Vitamin D3 1 by mouth twice 60tabs M85.80 Alexandro Roca NP 05/25 daily [id number] Tablets Naproxen 1 tablet with food 60tabs [...] 2 by mouth every day 180caps I10 Tarcie Mills, 07/08/2018 120mg Caps ER N.P. 24HR Blood Pressure Monitor check bp three times 1units I10 Alexandro Roca NP 10/2017 Auto Inflate weekly at home [facility] Freestyle Lite Blood for blood glucose 1units [...] NP 40mg mouth once daily Tablets DR Dejesus HFA 2 puffs by mouth 1units Alexandro Roca NP 108(90Base) four times a day as mcg/Act Aerosol needed Ipratropium 1 vial in nebulizer 90ml Marcia Bowlegs/Albuterol every 4-6 hours as MARC Stanley Sulfate needed for asthma 0.5-2.5(3)mg/3ML Solution Epipen 2-Gulshan use as directed 1units Unknown 0.3mg/0.3ML Solution Auto-Inject Albuterol Sulfate 1 vial via nebulizer 75ml J44.9 Alexandro Roca NP 4 times daily as (2.5mg/3ML) 0.083% needed Nebulizer History Medications Bactrim DS one by mouth 20tabs J01.90 [...] 08/31/2019 Injection 1 MG Injection Synvisc Or Synvisc-Elder Olmedo M.D. 08/31/2019 Injection 1 MG Injection [...] Code Status Date Vaccine Reaction Lot # 85252 Given 05/25/2019 Influenza Virus Vaccine, No immediate reaction 340951 Quadrivalent ([id number]), Derived From Cell 32854 Given 07/01/2018 Influenza Virus Vaccine, [id number] Quadrivalent, Split, Preservative Free 40546 Given 05/07/2016 Influenza Virus 3Yrs & Over Vital Signs Date Vital Result Comment 09/16/2019 9:13am Weight 143.00 lb Heart Rate 71 /min BP Systolic 117 mmHg BP Diastolic 64 mmHg Body Temperature 99.0 F O2 % BldC Oximetry 94 % 09/15/2019 11:10am Heart Rate 62 /min BP Systolic 100 mmHg BP Diastolic 58 mmHg Body Temperature 97.4 F Pain Level 6 Results Test Acquired Date Facility Test Result H/L Range Note Laboratory test 05/27/2019 [facility] Troponin-I 0.00 ng/mL < 0.[address] (TnI) [place] [address] [phone] Laboratory test 05/27/2019 [facility] Lactic Acid 1.5 mmol/L Normal 0.5-2.[address] [place] [address] [phone] CBC Auto Diff 05/26/2019 [facility] White Blood 4.9 10^3/uL Normal 3.5-10.[address] [place] [address] [phone] Red Blood Count 4.72 10^6/uL Normal 3.70-4.87 [...] Red Blood Cells % 0.0 Inr/Protime 05/26/2019 [facility] Inr 0.95 Normal 0.82-1.09 3 [address] [place] [address] [phone] Comp Metabolic 05/26/2019 [facility] Sodium 139 mmol/L Normal 135-145 Panel [address] [place] [address] [phone] Potassium 3.9 mmol/L Normal 3.5-5.0 Chloride 106 [...] Egfr 74.9 >60 4 Laboratory test 05/26/2019 [facility] Troponin-I (TnI) 0.00 ng/ mL <0.04 [address] [place] [address] [phone] B-Type Natriuretic Peptide BNP 50 pg/mL <=100 Lactic Acid 2.1 mmol/L Critical high 0.5-2.0 6 Urine Culture And 05/12/2019 [facility] Urine Culture SEE RESULT [address] [place] [address] [phone] Laboratory test 04/21/2019 [facility] Hemoglobin A1c 6.5 % High 4.0- [address] (Glyco HGB) 5.6 [place] [address] [phone] CBC Auto Diff 04/21/2019 [facility] White Blood 5.9 Normal 3.5 - [address] Count 10^3/uL 10.8 [place] [address] [phone] Red Blood Count 4.70 10^6/uL Normal 3.70-4.87 [...] % 0.1 Iron & Iron Binding 04/21/2019 [facility] Iron 70 g/dL Normal 50-[address] [place] [address] [phone] Unsaturated Iron Binding < 278 g/dL Total Iron Binding Capacity 293 g/dL Normal 250-450 Transferrin 209 mg/dL Normal 203-362 % Iron Saturation 24 % Normal 15-55 Urine Culture And 04/21/2019 [facility] Urine SEE RESULT [address] [place] [address] [phone] Laboratory test 04/21/2019 [facility] Vitamin B12 326 pg/mL Normal 180- [address] [place] [address] [phone] Comp Metabolic 04/21/2019 [facility] Sodium 142 mmol/L Normal 135- Panel [address] [place] [address] [phone] Potassium 4.2 mmol/L Normal 3.5-5.0 Chloride 106 [...] Egfr 88.2 >60 11 Lipid Profile 04/21/2019 [facility] Triglycerides 161 mg/dL 12 (Trig/Chol/HDL) [address] [place] [address] [phone] Cholesterol 166 mg/dL 13 HDL Cholesterol 46.7 mg/dL 14 LDL Cholesterol 87 mg/dL 15 1 Troponin-I testing on Plasma Separator Tubes (PST) has a known false positive rate of 0.20-0.40%. All positive troponins reflex immediately to secondary confirmatory testing. Using the [employer] DxI 800 Access Immunoassay systems, the 99th percentile upper reference limit was demonstrated to be < 0.03 ng/mL. 2 [facility] Severe Sepsis and Septic Shock [...] Result LACT:2.1 Called to YAZAN at: 22:56:42 by:[id number] Read back by:YAZAN [facility] Severe Sepsis and Septic Shock Management Bundle Measure requires all lactic acids initially measuring >2.0 mmol/L be repeated. 7 SEE RESULT BELOW Name: MARIE ZHOU I : [address]: Alexandro Roca NP Acct: [id number] Unit: [id number] AGE: 59 [facility]12[facility] SEX: F Status: REG REF SPEC: [id number] JOSEPHINE: 05/12/[address]: Alexandro Roca NP REQ: [id number] RECD: 05/12/19 STATUS: COMP _ SOURCE: URINE SPDESC: ORDERED: Urine Culture Procedure Result Reported Site Urine Culture Final 10/16/19- 1042 ML No growth of clinically significant organisms * ML - Main Lab . END OF REPORT DEPARTMENT OF PATHOLOGY, [address] [place] [address] Lj Bravo M.D. Director [facility] # [id number] Therapeutic target for the treatment of diabetes mellitus patients is <7% HBA1C, and in selective patients <6.0%. Please refer to [employer] diabetic care guidelines for further information. 9 SEE RESULT BELOW Name: MARIE ZHOU I : [address]: Alexandro Roca NP Acct: [id number] Unit: [id number] AGE: 59 Location: [facility] Re04/21/19 SEX: F Status: REG REF SPEC: [id number] JOSEPHINE: 04/21/19-[address] [facility] [address]: Alexandro Roca NP REQ: [id number] RECD: 04/21/195 STATUS: COMP _ SOURCE: URINE SPDESC: ORDERED: Urine Culture COMMENTS: FASTING 10 HOUR Procedure Result Reported Site Urine Culture Final 04/23/19- 08 ML Mixed robbi; possible contamination. Suggest resubmission. * ML - Main Lab . END OF REPORT DEPARTMENT OF PATHOLOGY, [address] [place] [address] Lj Bravo M.D. Director [facility] # [id number] 10 Normal Range 180 to 914 Indeterminate [...] 08/24/2019 Inject/Drain Joint/Bursa Major W/O US Completed 08/17/201959025 Inject/Drain Joint/Bursa Major W/O US Completed 06/10/201969453 Inject/Drain Joint/Bursa Major W/O US Completed 09/19/2018 [id number] Colonoscopy Completed 09/09/2018 [id number] Mammogram Completed 02/17/2013 [id number] Colonoscopy Completed Medical Devices Description No Information Available Encounters Type Date Location Provider Dx Diagnosis Office Visit 09/01/2019 [facility] Internal Maryann Elliott J01.90 Acute sinusitis , 11:20a Medicine - [facility] unspecified Office Visit 07/28/2019 [facility] Internal Maryann Elliott J01.90 Acute sinusitis , 3:00p Medicine - [facility] N[facility] unspecified Office Visit 07/10/2019 [facility] Norah Olmedo, M25.561 Pain in right knee 9:15a at [facility] Mora M25.562 Pain in left knee M25.462 Effusion, left knee M25.461 Effusion, right knee M17.0 Bilateral primary osteoarthritis of knee Office Visit 06/17/2019 2:00p [facility] Charlietaosiel SCristian I10 Sandeep Calderón M.D. (primary) hypertension E78.5 Hyperlipidemia, unspecified Office Visit 06/10/2019 8:00a [facility] Norah Olmedo, M25.562 Pain in left at [place] M.D. knee M25.561 Pain in right knee M25.462 Effusion, left knee M25.461 Effusion, right knee M17.0 Bilateral primary osteoarthritis of knee Office Visit 06/08/2019 2:00p [facility] Internal Alexandro Abelino, B02.9 Zoster without Medicine - [employer] [facility] complications [facility] Office Visit 05/25/2019 4:20p [facility] Internal Alexandro Abelino, M25.562 Pain in left knee Medicine - [employer] [facility] M25.561 Pain in right knee M85.80 Oth disrd of bone density and structure, unspecified site Z23 Encounter for immunization Office Visit 05/21/2019 [facility] J45.909 Unspecified 11:00a [facility] asthma, [facility] uncomplicated J44.9 Chronic obstructive pulmonary disease, unspecified Office Visit 04/21/2019 11:40a [facility] Internal Alexandrojuancarlos Roca, I10 Essential [facility] E78.5 Hyperlipidemia, unspecified D64.9 Anemia, unspecified R73.9 Hyperglycemia, unspecified R32 Unspecified urinary incontinence M25.552 Pain in left hip Assessments Date Code Description Provider 09/16/2019 M25.511 Pain in right shoulder Alexandro Roca NP 09/16/2019 M54.12 Radiculopathy, cervical region Alexandro Roca NP 09/15/2019 G57.81 Other specified mononeuropathies of Андрей Fisher M.D. right lower limb 09/15/2019 G57.92 Unspecified mononeuropathy of left Аднрей Fisher M.D. lower limb 09/01/2019 J01.90 Acute sinusitis, unspecified Maryann Elliott, [...] 07/10/2019 M25.561 Pain in right knee Norah Honorio, M.D. 07/10/2019 M25.562 Pain in left knee Norah Honorio, M.D. 07/10/2019 M25.462 Effusion, left knee Norah Honorio, M.D. 07/10/2019 M25.461 Effusion, right knee Norah Honorio, M.D. 07/10/2019 M17.0 Bilateral primary osteoarthritis of Norah Honorio, M.D. knee 06/17/2019 I10 Essential (primary) hypertension Jessica Calderón M.D. 06/17/2019 E78.5 Hyperlipidemia, unspecified Jessica Calderón M.D. 06/10/2019 M25.562 Pain in left knee Norah Honorio, M.D. 06/10/2019 M25.561 Pain in right knee Norah Honorio, M.D. 06/10/2019 M25.462 Effusion, left knee Norah [...] Alexandrojuancarlos Roca NP 04/21/2019 D64.9 Anemia, unspecified Alexandro Roca NP 04/21/2019 R73.9 Hyperglycemia, unspecified Alexandro Roca NP 04/21/2019 R32 Unspecified urinary incontinence Alexandro Roca NP 04/21/2019 M25.552 Pain in left hip Alexandro Roca NP Plan of Treatment Future Appointment(s):10/06/2019 8:30 am - Андрей Fisher M.D. at [facility] at [id number]/19/2019 8:40 am - Alexandro Roca NP at [facility] Internal Medicine - [facility]11/19/2019 8:30 am - Marcia Stanley NP at [facility]09/16/2019 - Alexandro Roca NPM25.511 Pain in right shoulderNew Medication:Baclofen 10 mg - take 1/2-1 tab every 8 hours as needed for muscle oifwwG61.12 Radiculopathy, cervical regionNew Medication:Medrol 4 mg - as directed on packageNew Therapy:Physical TherapyComments:I am suspicious that your arm pain is related to your neck. I am ordering an MRI to further evaluate. Restart the gabapentin at night. If tolerated you can also take thi in the morning.Start the steroid. Take this with food in the morning. Functional Status Description No Information Available Mental Status Description No Information Available Referrals Refer to Dr Reason for Referral Status Appt Date Emilio Phillips M.D. ataxia, spastic gait saw Dr. Tan [facility] [address] [facility] [place] [address] [place] [address] [phone] Norah Olmedo MD Sent 06/10/2019 [address] [place] [address] [place] [address] [phone]
--- OUTSIDE RECORDS SUMMARY | 2019-10-09 20:49 | XMS REPORT | Continuity of Care Document ---
:1960 External Reference #:[id number] Author Name Андрей Fisher M.D. (transmitted by agent of provider Martha Amezcua) Address [address] [place] [id number] Care Team Providers Name Role Phone Nithya Blanco FNP - Nurse Care Team Information Coding Compliance Manager [phone] Practitioner Robert Ortega MD - Hospitalist Care Team Information Coding Compliance Manager [phone] Nancie Egan MD - Internal Care Team Information Coding Compliance Manager [phone] Medicine Nancie Egan MD - Internal Care Team Information Coding Compliance Manager [phone] Medicine Problems Active Problems Provider Date Asthma [...] presumed cause; no discharge summary in the [facility] database Localized, primary osteoarthritis Norah Olmedo M.D. Onset: 06/10/2019 Social History Type Date Description Comments Sex Unknown Tobacco Use Start: Unknown Never Smoked Cigarettes Smoking Status Reviewed: 09/15/19 Never Smoked Cigarettes ETOH Use Denies alcohol [...] 60tabs M85.80 Alexandro Roca NP 05/25 daily [id number] Tablets Naproxen 1 tablet with food 60tabs [...] For use when sitting 1units M53.3 Alexandro Rcoa NP 07/31/2018 Cardizem CD 2 by mouth [...] Ipratropium 1 vial in nebulizer 90ml Marcia Borger/Albuterol every 4-6 hours as MARC Stanley Sulfate [...] Code Status Date Vaccine Reaction Lot # [id number] Given 05/25/2019 Influenza Virus Vaccine, No immediate reaction [id number] Quadrivalent ([id number]), Derived From Cell 27952 Given 07/01/2018 Influenza Virus Vaccine, [id number] Quadrivalent, Split, Preservative Free [id number] Given 05/07/2016 Influenza Virus 3Yrs & Over Vital Signs Date Vital Result Comment 09/15/2019 11:10am Heart Rate 62 /min BP Systolic 100 mmHg BP Diastolic 58 mmHg Body Temperature 97.4 F Pain Level 6 09/01/2019 11:41am Height 61 inches 5'1" Weight 146.12 lb Heart Rate 57 /min BP Systolic Sitting 107 mmHg BP Diastolic Sitting 62 mmHg Body Temperature 97.3 F O2 % BldC Oximetry 96 % BMI (Body Mass Index) 27.6 kg/m2 Results Test Acquired Date Facility Test Result H/L Range Note Laboratory test 05/27/2019 [facility] Troponin-I 0.00 ng/mL < 0.04 [address] (TnI) [place] [address] [phone] Laboratory test 05/27/2019 [facility] Lactic Acid 1.5 mmol/L Normal 0.5-2.0 [address] [place] [address] [phone] CBC Auto Diff 05/26/2019 [facility] White Blood 4.9 10^3/uL Normal 3.5-10.[address] [place] [address] [phone] Red Blood Count 4.72 10^6/uL Normal 3.70-4.87 [...] Red Blood Cells % 0.0 Inr/Protime 05/26/2019 [facility] Inr 0.95 Normal 0.82-1.09 3 [address] [place] [address] [phone] Comp Metabolic 05/26/2019 [facility] Sodium 139 mmol/L Normal 135-145 Panel [address] [place] [address] [phone] Potassium 3.9 mmol/L Normal 3.5-5.0 Chloride 106 [...] Egfr 74.9 >60 4 Laboratory test 05/26/2019 [facility] Troponin-I (TnI) 0.00 ng/ mL <0.04 [address] [place] [address] [phone] B-Type Natriuretic Peptide BNP 50 pg/mL <=100 Lactic Acid 2.1 mmol/L Critical high 0.5-2.0 6 Urine Culture And 05/12/2019 [facility] Urine Culture SEE RESULT [address] [place] [address] [phone] Laboratory test 04/21/2019 [facility] Hemoglobin A1c 6.5 % High 4.0- [address] (Glyco HGB) 5.6 [place] [address] [phone] CBC Auto Diff 04/21/2019 [facility] White Blood 5.9 Normal 3.5 - [address] Count 10^3/uL 10.8 [place] [address] [phone] Red Blood Count 4.70 10^6/uL Normal 3.70-4.87 [...] % 0.1 Iron & Iron Binding 04/21/2019 [facility] Iron 70 g/dL Normal 50-[address] [place] [address] [phone] Unsaturated Iron Binding < 278 g/dL Total Iron Binding Capacity 293 g/dL Normal 250-450 Transferrin 209 mg/dL Normal 203-362 % Iron Saturation 24 % Normal 15-55 Urine Culture And 04/21/2019 [facility] Urine SEE RESULT [address] [place] [address] [phone] Laboratory test 04/21/2019 [facility] Vitamin B12 326 pg/mL Normal 180- [address] [place] [address] [phone] Comp Metabolic 04/21/2019 [facility] Sodium 142 mmol/L Normal 135- Panel [address] [place] [address] [phone] Potassium 4.2 mmol/L Normal 3.5-5.0 Chloride 106 [...] Egfr 88.2 >60 11 Lipid Profile 04/21/2019 [facility] Triglycerides 161 mg/dL 12 (Trig/Chol/HDL) [address] [place] [address] [phone] Cholesterol 166 mg/dL 13 HDL Cholesterol 46.7 mg/dL 14 LDL Cholesterol 87 mg/dL 15 1 Troponin-I testing on Plasma Separator Tubes (PST) has a known false positive rate of 0.20-0.40%. All positive troponins reflex immediately to secondary confirmatory testing. Using the [employer] DxI 800 Access Immunoassay systems, the 99th percentile upper reference limit was demonstrated to be < 0.03 ng/mL. 2 [facility] Severe Sepsis and Septic Shock Management Bundle [...] immediately to secondary confirmatory testing. Using the [employer] DxI 800 Access Immunoassay systems, the 99th percentile upper reference limit was demonstrated to be < 0.03 ng/mL. 6 Critical Result LACT:2.1 Called to YAZAN at: 22:56:42 by:[id number] Read back by:YAZAN [facility] Severe Sepsis and Septic Shock Management Bundle Measure requires all lactic acids initially measuring >2.0 mmol/L be repeated. 7 SEE RESULT BELOW Name: MARIE ZHOU I : [address]: Alexandro Roca NP Acct: [id number] Unit: [id number] AGE: 59 Location: [facility] Re05/12/19 SEX: F Status: REG REF SPEC: [id number] JOSEPHINE: 05/12/[address]: Alexandro Roca NP REQ: [id number] RECD: 05/12/19 STATUS: COMP _ SOURCE: URINE SPDESC: ORDERED: Urine Culture Procedure Result Reported Site Urine Culture Final 05/13/19- 1042 ML No growth of clinically significant organisms * ML - Main Lab . END OF REPORT DEPARTMENT OF PATHOLOGY, [address] [place] [address] Lj Bravo M.D. Director [facility] # [id number] Therapeutic target for the treatment of diabetes mellitus patients is <7% HBA1C, and in selective patients <6.0%. Please refer to [place] [employer] diabetic care guidelines for further information. 9 SEE RESULT BELOW Name: MARIE ZHOU I : [address]: Alexandro Roca SWITCHBOARD INSPECTOR Acct: [id number] Unit: [id number] AGE: 59 Location: [facility] Re04/21/19 SEX: F Status: REG REF SPEC: [id number] JOSEPHINE: 04/21/19-[address]: Alexandro Roca SWITCHBOARD INSPECTOR REQ: [id number] RECD: 04/21/199 STATUS: COMP _ SOURCE: URINE SPDESC: ORDERED: Urine Culture COMMENTS: FASTING 10 HOUR Procedure Result Reported Site Urine Culture Final 04/23/19- 836 ML Mixed robbi; possible contamination. Suggest resubmission. * ML - Main Lab . END OF REPORT DEPARTMENT OF PATHOLOGY, [address] [place] [address] Lj Bravo M.D. Director [facility] # [id number] 10 Normal Range 180 to 914 Indeterminate [...] Inject/Drain Joint/Bursa Major W/O US Completed 09/19/2018 [id number] Colonoscopy Completed 09/09/2018 [id number] Mammogram Completed 02/17/2013 [id number] Colonoscopy Completed Medical Devices Description No Information Available Encounters Type Date Location Provider Dx Diagnosis Office Visit 09/15/2019 [facility] Андрей G57.81 Other specified 11:15a at Paramjit Fisher M.D. mononeuropathies of right lower limb G57.92 Unspecified mononeuropathy of left lower limb Office Visit 09/01/2019 [facility] Internal Maryann Elliott J01.90 Acute sinusitis , 11:20a Medicine - [facility] unspecified Office Visit 07/28/2019 [facility] Maryann Elliott J01.90 Acute sinusitis , 3:00p Medicine - [facility] unspecified Office Visit 07/10/2019 [facility] Norah Olmedo, M25.561 Pain in right 9:15a Orthopedics jomar Mora knee Paramjit M25.562 Pain in left knee M25.462 Effusion, left knee M25.461 Effusion, right knee M17.0 Bilateral primary osteoarthritis of knee Office Visit 06/17/2019 2:00p [facility] Qutaosiel S. I10 Sandeep Calderón M.D. (primary) hypertension E78.5 Hyperlipidemia, unspecified Office Visit 06/10/2019 8:00a [facility] Norah Olmedo, M25.562 Pain in left at [place] M.DCristian knee M25.561 Pain in right knee M25.462 Effusion, left knee M25.461 Effusion, right knee M17.0 Bilateral primary osteoarthritis of knee Office Visit 06/08/2019 2:00p [facility] Internal Alexandro Abelino, B02.9 [place]oster without Medicine - SWITCHBOARD INSPECTOR complications [facility] Office Visit 05/25/2019 4:20p [facility] Internal Laexandrojuancarlos Roca, M25.562 Pain in left knee Medicine - SWITCHBOARD INSPECTOR [facility] M25.561 Pain in right knee M85.80 Oth disrd of bone density and structure, unspecified site Z23 Encounter for immunization Office Visit 05/21/2019 [facility] J45.909 Unspecified 11:00a [facility] Stanley asthma, [facility] uncomplicated J44.9 Chronic obstructive pulmonary disease, unspecified Office Visit 04/21/2019 11:40a [facility] Internal Alexandrojuancarlos Roca, I10 Essential [facility] SW[facility] INSPECT[facility] hypertension E78.5 Hyperlipidemia, unspecified D64.9 Anemia, unspecified R73.9 Hyperglycemia, unspecified R32 Unspecified urinary incontinence M25.552 Pain in left hip Assessments Date Code Description Provider 09/15/2019 G57.81 Other specified mononeuropathies of Андрей [...] M.D. 06/10/2019 M25.462 Effusion, left knee Norah Honorio, M.D. 06/10/2019 M25.461 Effusion, right knee Norah Olmedo M.D. 06/10/2019 M17.0 Bilateral primary osteoarthritis of Norah Olmedo M.D. knee 06/08/2019 B02.9 [place] without complications Alexandro Roca NP 05/25/2019 M25.562 Pain in left knee Alexandrojuancarlos Roca, SWITCHBOARD INSPECTOR 05/25/2019 M25.561 Pain in right knee Alexandro [...] MARC 04/21/2019 R73.9 Hyperglycemia, unspecified Alexandrojuancarlos Roca, MARC 04/21/2019 R32 Unspecified urinary incontinence Alexandro Roca NP 04/21/2019 M25.552 Pain in left hip Alexandro Roca NP Plan of Treatment Future Appointment(s):10/06/2019 8:30 am - Андрей Fisher M.D. at [facility] at Ckjsvx0709/16/2019 9:00 am - Alexandro Roca NP at [facility] Internal Medicine - [facility]10/19/2019 8:40 am - Alexandro Roca NP at [facility] Internal Medicine - [facility]11/19/2019 8:30 am - [facility]cia Stanley NP at [facility]09/15/2019 - Андрей Fisher M.D.G57.81 Other specified mononeuropathies of right lower limbFollow up:10/05 with Shakeel Ta57.92 Unspecified mononeuropathy of left lower limbReferral:Emilio Phillips M.D., NeurologyFollow up:As needed Functional Status Description No Information Available Mental Status Description No Information Available Referrals Refer to Reason for Referral Status Appt Date Emilio Phillips M.D. ataxia, spastic gait saw Dr. Tan Created [address] [facility] [place] [address] [place] [address] [phone] Norah Olmedo MD Sent 06/10/[address] [place] [address] [place] [address] [phone]
[2019-10-09 20:57] VITALS: BP 138/71
[2019-10-09 21:39] LABS: Influenza A Molecular Negative (Negative); Influenza B Molecular Negative (Negative)
--- NOTE | 2019-10-09 21:45 | UC ---
Respiratory Complaint HPI - HPI Summary HPI Summary: cough, sorethroat body aches and fatigue for 2 days - History of Current Complaint Chief Complaint: UCRespiratory Stated Complaint: SORE THROAT Time Seen by Provider: 10/09/19 20:55 Hx Obtained From: Patient ?: No Onset/Duration: Sudden Onset, Lasting Days - 2 Timing: Constant Pain Intensity: 10 Pain Scale Used: 0-10 Numeric Character: Cough: Nonproductive Aggravating Factors: Nothing Alleviating Factors: Bronchodilator Associated Signs And Symptoms: Positive: Fever - subjective, URI - Allergies/Home Medications Allergies/Adverse Reactions: Allergies Allergy/AdvReac Type Severity Reaction Status Date / Time Adhesive Tape Allergy Mild Rash Verified 10/09/19 20:57 amoxicillin [From Augmentin] Allergy Rash Verified 10/09/19 20:57 azithromycin Allergy Rash And Verified 10/09/19 20:57 Itching clavulanic acid Allergy Rash Verified 10/09/19 20:57 [From Augmentin] moxifloxacin [From Avelox] Allergy Rash Verified 10/09/19 20:57 tapentadol [From Nucynta] Allergy Rash Verified 10/09/19 20:57 tolmetin [From Tolectin] Allergy Rash Verified 10/09/19 20:57 valdecoxib [From Bextra] Allergy Rash Verified 10/09/19 20:57 morphine AdvReac Difficulty Verified 10/09/19 20:57 Breathing PERFUMES Allergy Severe DYSPNEA Uncoded 10/09/19 20:57 Home Medications: Home Medications Montelukast Sodium TAB* [Singulair 10 MG TAB*] 10 mg PO QPM 03/24/13 [History Confirmed 10/09/19] Pantoprazole TAB * [Protonix TAB*] 40 mg PO DAILY 04/26/18 [History Confirmed ] Albuterol HFA INHALER* [Ventolin HFA Inhaler*] 2 puff INH DAILY PRN 11/27/18 [ History Confirmed 10/09/19] Metoprolol Tartrate TAB* [Lopressor TAB*] 25 tab PO BID 11/27/18 [History Confirmed 10/09/19] Budesonide Flexhaler 90 (NF) [Pulmicort Flexhaler 90 mcg/act (NF)] 1 puff INH BID 05/26/19 [History Confirmed 10/09/19] Calcium Carbonate/Vitamin D3 [Calcium 500-Vit D3 125 Caplet] 1 each PO DAILY [History Confirmed 10/09/19] Cyanocobalamin TAB* [Vitamin B12 TAB*] 1,000 mcg PO DAILY 05/26/19 [History Confirmed 10/09/19] Glycopyrrolate/Formoterol (NF) [Bevespi Aerospere Inhaler] 2 puff INH BID [History Confirmed 10/09/19] Isosorbide Mononitrate ER TAB* [Imdur ER TAB*] 60 mg PO DAILY 05/26/19 [History Confirmed 10/09/19] Lisinopril TAB* [Prinivil TAB 10 MG*] 10 mg PO DAILY 05/26/19 [History Confirmed 10/09/19] Naproxen TAB* [Naprosyn 250 mg TAB*] 250 mg PO BID 05/26/19 [History Confirmed 10/09/19] amLODIPine TAB* [Norvasc 5 mg TAB*] 5 mg PO DAILY 05/26/19 [History Confirmed ] dilTIAZem HCl [Cartia Xt] 120 mg PO BID 05/26/19 [History Confirmed 10/09/19] traMADol TAB* [Ultram*] 50 mg PO Q4HR PRN 05/26/19 [History Confirmed 10/09/19] Acetaminophen [Tylenol Extra Strength] 1,000 mg PO Q6HR 09/08/19 [History Confirmed 10/09/19] Gabapentin 300 mg PO DAILY 09/08/19 [History Confirmed 10/09/19] Hydrocodone/Acetaminophen [[place] 5-325 Tablet] 1 - 2 each PO Q6HR PRN #15 tablet MDD 8 09/08/19 [Rx Confirmed 10/09/19] DOXYcycline CAP(*) [DOXYcycline 100MG CAP(*)] 100 mg PO BID #19 cap 10/09/19 [Rx ] PMH/Surg Hx/FS Hx/Imm Hx Previously Healthy: No Cardiovascular History: Hypertension Respiratory History: Asthma GI/ History: Gastroesophageal Reflux Other History Of: Negative For: Anticoagulant Therapy - Surgical History Surgical History: Yes Surgery Procedure, Year, and Place: 90 % pancreas REMOVED 2018. TUBAL LIGATION in 1988. hole in ear closed. tonsils as a child. RIGHT ULNAR NERVE TRANSPOSITON 05/14 [facility]. left ulnar nerve surgery. ulnar nerve repair - Family History Known Family History: Positive: Cardiac Disease, Hypertension, Diabetes, Respiratory Disease - asthma - Social History Occupation: Disabled Lives: With Family Alcohol Use: None Substance Use Type: None Smoking Status (MU): Never Smoked Tobacco Have You Smoked in the Last Year: No - Immunization History Most Recent Influenza Vaccination: fall 2017 Most Recent Tetanus Shot: unknown Most Recent Pneumonia Vaccination: within 5 years Review of Systems All Other Systems Reviewed And Are Negative: Yes Constitutional: Positive: Fever, Chills, Fatigue Skin: Positive: Negative Eyes: Positive: Negative ENT: Positive: Sore Throat Respiratory: Positive: Cough Cardiovascular: Positive: Negative Gastrointestinal: Positive: Negative Genitourinary: Positive: Negative Motor: Positive: Negative Neurovascular: Positive: Negative Musculoskeletal: Positive: Arthralgia Neurological/Mental Status: Positive: Negative Psychological: Positive: Negative Is Patient Immunocompromised?: No Physical Exam Triage Information Reviewed: Yes Appearance: Well-Nourished, Ill-Appearing - appears older than states age, Pain Distress - chronic Vital Signs: Initial Vital Signs Temp 99.8 F 10/09/19 20:52 Pulse 92 10/09/19 20:52 Resp 20 10/09/19 20:52 BP 138/71 10/09/19 20:52 Pulse Ox 95 10/09/19 20:52 Vital Signs Reviewed: Yes Eye Exam: Normal Eyes: Positive: Conjunctiva Clear ENT Exam: Normal ENT: Positive: Normal ENT inspection, Hearing grossly normal, Pharynx normal, Nasal congestion, Nasal drainage, TMs normal, Uvula midline. Negative: Tonsillar swelling, Tonsillar exudate, Trismus, Muffled voice, Hoarse voice, Dental tenderness, Sinus tenderness Neck exam: Normal Neck: Positive: Supple, Nontender Respiratory Exam: Normal Respiratory: Positive: Chest non-tender, Lungs clear, Normal breath sounds, No respiratory distress, No accessory muscle use Cardiovascular Exam: Normal Cardiovascular: Positive: RRR, No Murmur, Pulses Normal, Brisk Capillary Refill Musculoskeletal Exam: Normal Musculoskeletal: Positive: Strength Intact, ROM Intact, No Edema Neurological Exam: Normal Neurological: Positive: Alert, Muscle Tone Normal Psychological Exam: Normal Skin Exam: Normal Diagnostics - Laboratory Lab Results: Influenza a/b - strep - - Radiology No standard instances Radiology Interpretation Completed By: Radiologist - no infiltrate Respiratory Course/Dx - Course Course Of Treatment: increase fluids, Tylenol/ibuprofen for pain, doxycycline follow with pcp this week, to ed if symptoms worsen in anyway - Differential Dx/Diagnosis Provider Diagnosis: Acute bronchitis Discharge ED - Sign-Out/Discharge Documenting (check all that apply): Patient Departure All imaging exams completed and their final reports reviewed: Yes - Discharge Plan Condition: Stable Disposition: HOME Prescriptions: DOXYcycline CAP(*) [DOXYcycline 100MG CAP(*)] 100 mg PO BID #19 cap Patient Education Materials: Acute Bronchitis (ED) Referrals: Nancie Egan MD [Primary Care Provider] - 2 Days Additional Instructions: use your inhalers increase fluids to emergency department if symptoms worsen in any way follow up and recheck with Dr. Egan on Saturday - Billing Disposition and Condition Condition: STABLE Disposition: Home - Attestation Statements Provider Attestation: This patient was not seen by me. I was available for consult. Chart reviewed. WILLIAM
[2019-10-09] MEDS ORDERED: DOXYcycline CAP(*) 100 MG PO ONE (21:51)
== END 2019-10-09 22:30 | disposition home or self-care (01) ==
LOC: UCEAST 18:47
DX: J45.909 Unspecified asthma, uncomplicated (principal); J20.9 Acute bronchitis, unspecified; J02.9 Acute pharyngitis, unspecified; I10 Essential (primary) hypertension; K21.9 Gastro-esophageal reflux disease without esophagitis; Z91.09 Other allergy status, other than to drugs and biological substances; Z88.1 Allergy status to other antibiotic agents; Z88.0 Allergy status to penicillin; Z88.6 Allergy status to analgesic agent; Z88.5 Allergy status to narcotic agent; Z79.51 Long term (current) use of inhaled steroids; Z79.899 Other long term (current) drug therapy
CPT/HCPCS: 71046; 87651; 99212; A9270-GY; G0463

== ENCOUNTER 2020-03-20 14:40 | Observation (INO) ==
[2020-03-20] MEDS ORDERED: NS 0.9% 1000 ml BAG 1,000 ML IV ONE ×2 (14:50→17:01)
[2020-03-20 15:01] LABS: ABS Eosinophils 0.1 10^3/ul (0-0.6); ABS Lymphocytes 1.6 10^3/ul (1.0-4.8); ABS Monocytes 0.6 10^3/ul (0-0.8); ABS Neutrophils 6.3 10^3/ul (1.5-7.7); Eosinophil % 1.6 %; Hematocrit 42 % (35-47); Lymphocyte % 18.3 %; Mean Corpuscular HGB Conc 34 g/dL (31-36); Mean Corpuscular Hemoglobin 30 pg (27-31); Mean Corpuscular Volume 89 fL (80-97); Mean Platelet Volume 10.6 fL (7.4-10.4); Nucleated Red Blood Cells % 0.1; Platelet Count 192 10^3/uL (150-450); Red Cell Distribution Width 14 % (10-15); White Blood Count 8.7 10^3/uL (3.5-10.8)
[2020-03-20 15:15] LABS: Urine Appearance Cloudy; Urine Bilirubin Negative (Negative); Urine Blood Negative (Negative); Urine Color Yellow; Urine Glucose Negative (Negative); Urine Ketones Negative (Negative); Urine Nitrite Negative (Negative); Urine Protein 1+(30 mg/dL) (Negative); Urine Specific Gravity 1.024 (1.010-1.030); Urine Urobilinogen Negative (Negative)
[2020-03-20 15:18] LABS: ALT 12 U/L (7-52); AST 14 U/L (13-39); Albumin 4.7 g/dL (3.2-5.2); Albumin/Globulin Ratio 2.1 (1-3); Alkaline Phosphatase 51 U/L (34-104); Anion Gap 11 mmol/L (2-11); BUN/Creatinine Ratio 12.7 (8-20); Blood Urea Nitrogen 15 mg/dL (6-24); CO2 Carbon Dioxide 21 mmol/L (22-32); Calcium 9.5 mg/dL (8.6-10.3); Chloride 104 mmol/L (101-111); EGFR African American 56.9 (>60); Globulin 2.2 g/dL (2-4); Glucose 126 mg/dL (70-100); Magnesium 1.5 mg/dL (1.9-2.7); Potassium 4.1 mmol/L (3.5-5.0); Sodium 136 mmol/L (135-145); Total Protein 6.9 g/dL (6.4-8.9)
[2020-03-20 15:20] LABS: Troponin I 0.01 ng/mL (<0.03)
[2020-03-20 15:25] LABS: Urine Bacteria Absent (Absent); Urine Red Blood Cell 1+(3-5/hpf) (Absent); Urine Squamous Epithelial Cell Present (Absent); Urine White Blood Cell 1+(6-10/hpf) (Absent)
[2020-03-20 15:55] LABS: Alcohol, S < 10 mg/dL (<10)
[2020-03-20 16:52] LABS: TSH Ultra Thyroid Stim Horm 2.93 mcIU/mL (0.34-5.60)
[2020-03-20] MEDS ORDERED: cefTRIAXone 1 gm/50 mL NS BAG 1 GM/50 ML BAG IV ONE (17:01)
[2020-03-20] MEDS ORDERED: Magnesium Sulfate 2 gm BAG 2 GM/50 ML BAG IVPB ONE (17:29)
[2020-03-20] MEDS ORDERED: Iodixanol (CONTRAST) 320 MG/ML 100 ML SDV IV ONE (19:46)
[2020-03-20] MEDS ORDERED: Dextrose 50% Syringe 50 ml 25 GM/50 ML SYRINGE IV PUSH PRN (19:48)
[2020-03-20] MEDS ORDERED: Ondansetron 4 mg VIAL 2 MG/ML 2 ml VIAL IV PRN (19:48)
[2020-03-20] MEDS ORDERED: Albuterol 2.5mg/3 ml (0.083%) NEB.SOLN INH PRN (20:02)
[2020-03-20] MEDS ORDERED: Mometasone 220 MCG MDI INH SCH (23:00)
[2020-03-20] MEDS ORDERED: Tiotropium Brom/Olodaterol MDI INH SCH (23:00)
[2020-03-21] MEDS: NS 0.9% 1000 ml BAG 1,000 ML IV SCH ×2 (00:41→13:40)
[2020-03-21 03:43] LABS: ABS Eosinophils 0.1 10^3/ul (0-0.6); ABS Lymphocytes 1.5 10^3/ul (1.0-4.8); ABS Monocytes 0.4 10^3/ul (0-0.8); ABS Neutrophils 3.9 10^3/ul (1.5-7.7); Hematocrit 36 % (35-47); Hemoglobin 12.2 g/dL (12.0-16.0); Lymphocyte % 25.2 %; Mean Corpuscular HGB Conc 35 g/dL (31-36); Mean Corpuscular Hemoglobin 31 pg (27-31); Mean Corpuscular Volume 89 fL (80-97); Mean Platelet Volume 10.4 fL (7.4-10.4); Platelet Count 136 10^3/uL (150-450); Red Blood Count 4.01 10^6 /uL (3.70-4.87); Red Cell Distribution Width 15 % (10-15); White Blood Count 5.9 10^3/uL (3.5-10.8)
[2020-03-21 04:00] LABS: INR 0.93 (0.82-1.09)
[2020-03-21 04:16] LABS: HDL Cholesterol 30.5 mg/dL; Magnesium 1.9 mg/dL (1.9-2.7)
[2020-03-21] MEDS ORDERED: Isosorbide Mononit ER 60mg TAB PO SCH (09:00)
[2020-03-21] MEDS ORDERED: Calcium/Vitamin D TAB 250/125 TAB PO SCH (09:00)
[2020-03-21] MEDS ORDERED: Aspirin EC 81 mg TAB.EC (enteric coated) PO SCH (09:00)
[2020-03-21 17:33] VITALS: BP 123/62
[2020-03-21] MEDS ORDERED: Mometasone 220 MCG MDI INH SCH (21:00)
== END 2020-03-21 17:45 | disposition home or self-care (01) ==
LOC: MEDTELE 14:40 → ED 14:40 → MEDTELE 23:11
PROVIDERS: ADMIT Pediatrics; ATTEND Student in an Organized Health Care Education/Training Program

== ENCOUNTER 2021-11-11 15:26 | Observation (INO) ==
[2021-11-11] MEDS ORDERED: Lactated Ringers 1000 ml BAG 1,000 ML IV ONE ×2 (15:57→20:50)
[2021-11-11 16:18] LABS: ABS Eosinophils 0.1 10^3/ul (0-0.6); ABS Lymphocytes 0.3 10^3/ul (1.0-4.8); ABS Monocytes 0.5 10^3/ul (0-0.8); ABS Neutrophils 7.6 10^3/ul (1.5-7.7); Eosinophil % 0.8 %; Hematocrit 43 % (35-47); Hemoglobin 14.4 g/dL (12.0-16.0); Lymphocyte % 3.4 %; Mean Corpuscular HGB Conc 34 g/dL (31-36); Mean Corpuscular Hemoglobin 30 pg (27-31); Mean Corpuscular Volume 89 fL (80-97); Mean Platelet Volume 10.3 fL (7.4-10.4); Platelet Count 171 10^3/uL (150-450); Red Blood Count 4.83 10^6 /uL (3.70-4.87); Red Cell Distribution Width 14 % (10-15); White Blood Count 8.4 10^3/uL (3.5-10.8)
[2021-11-11 16:43] LABS: High Sens Troponin Baseline 3 pg/mL (<15)
[2021-11-11 16:54] LABS: Activated Partial Thrombo Time 34.2 seconds (26.0-38.0); INR 1.04 (0.86-1.15)
[2021-11-11 17:17] LABS: ALT 13 U/L (7-52); Albumin 4.4 g/dL (3.2-5.2); Albumin/Globulin Ratio 1.7 (1-3); Alkaline Phosphatase 52 U/L (35-149); Blood Urea Nitrogen 19 mg/dL (6-24); C Reactive Protein 62.43 mg/L (<8.01); CO2 Carbon Dioxide 23 mmol/L (22-32); Calcium 8.6 mg/dL (8.6-10.3); Chloride 103 mmol/L (101-111); Globulin 2.6 g/dL (2-4); Glucose 160 mg/dL (70-100); eGFR CKD-EPI 58.8 (>60)
[2021-11-11 17:18] LABS: Anion Gap 8 mmol/L (2-11); Sodium 134 mmol/L (135-145)
[2021-11-11 17:28] LABS: Lipase 59 U/L (11.0-82.0)
[2021-11-11 18:25] LABS: High Sensitivity Troponin 1 Hr 3 pg/mL (<15)
[2021-11-11] MEDS ORDERED: Iodixanol (CONTRAST) 320 MG/ML 100 ML SDV IV ONE (18:41)
[2021-11-11] MEDS ORDERED: Enoxaparin 40 MG/0.4 ML SYR SUBCUT SCH (23:00)
[2021-11-11] MEDS ORDERED: Albuterol HFA INHALER 8 gm MDI INH PRN (23:33)
[2021-11-11] MEDS ORDERED: Metoprolol Tartrate 5 mg VIAL 5 ml VIAL (1 mg/ml) IV PRN (23:33)
[2021-11-12] MEDS ORDERED: Acetaminophen IV 1 GM/100ML 100 ML IV PRN (01:00)
[2021-11-12] MEDS ORDERED: Lactated Ringers 1000 ml BAG 1,000 ML IV SCH (02:00)
[2021-11-12] MEDS ORDERED: Metoprolol Tartrate 5 mg VIAL 5 ml VIAL (1 mg/ml) IV SCH (04:00)
[2021-11-12] MEDS: Metoprolol Tartrate 5 mg VIAL 5 ml VIAL (1 mg/ml) IV SCH ×2 (04:20→10:30)
[2021-11-12] MEDS ORDERED: FLUTICAS/UMECLI/VILANT 100-62.5-25 MDI (NF) INH SCH (09:00)
[2021-11-12 11:30] VITALS: BP 133/70
== END 2021-11-12 14:50 | disposition home or self-care (01) ==
LOC: ED 15:26 → SUATTDRO 22:26 → INTOOBSV 22:26 → EDHOLD 22:26 → MED 11-12 00:25
PROVIDERS: ADMIT Internal Medicine; ATTEND Hospitalist

== ENCOUNTER 2021-12-10 15:22 | Observation (INO) ==
[2021-12-10 16:00] LABS: ABS Eosinophils 0.1 10^3/ul (0-0.6); ABS Lymphocytes 0.8 10^3/ul (1.0-4.8); ABS Monocytes 0.6 10^3/ul (0-0.8); ABS Neutrophils 2.5 10^3/ul (1.5-7.7); Eosinophil % 1.9 %; Hematocrit 37 % (35-47); Hemoglobin 11.9 g/dL (12.0-16.0); Lymphocyte % 19.9 %; Mean Corpuscular HGB Conc 33 g/dL (31-36); Mean Corpuscular Hemoglobin 29 pg (27-31); Mean Corpuscular Volume 90 fL (80-97); Mean Platelet Volume 10.9 fL (7.4-10.4); Platelet Count 126 10^3/uL (150-450); Red Blood Count 4.07 10^6 /uL (3.70-4.87); Red Cell Distribution Width 15 % (10-15); White Blood Count 4.1 10^3/uL (3.5-10.8)
[2021-12-10 16:06] LABS: INR 1.06 (0.86-1.15)
[2021-12-10 16:23] LABS: High Sens Troponin Baseline < 3 pg/mL (<15)
[2021-12-10 16:38] LABS: ALT 12 U/L (7-52); AST 15 U/L (13-39); Albumin/Globulin Ratio 2.1 (1-3); Alkaline Phosphatase 56 U/L (35-149); Anion Gap 8 mmol/L (2-11); Blood Urea Nitrogen 19 mg/dL (6-24); CO2 Carbon Dioxide 24 mmol/L (22-32); Calcium 8.3 mg/dL (8.6-10.3); Chloride 106 mmol/L (101-111); Globulin 1.9 g/dL (2-4); Glucose 340 mg/dL (70-100); Potassium 4.2 mmol/L (3.5-5.0); Sodium 138 mmol/L (135-145); Total Protein 5.9 g/dL (6.4-8.9); eGFR CKD-EPI 39.6 (>60)
[2021-12-10 16:55] LABS: Lipase 47 U/L (11.0-82.0)
[2021-12-10 17:37] LABS: High Sensitivity Troponin 1 Hr 3 pg/mL (<15)
[2021-12-10] MEDS ORDERED: Lactated Ringers 1000 ml BAG 1,000 ML IV ONE (19:51)
[2021-12-10] MEDS ORDERED: Albuterol HFA INHALER 8 gm MDI INH PRN (19:53)
[2021-12-10 19:55] LABS: High Sensitivity Troponin 3 Hr < 3 pg/mL (<15)
[2021-12-10] MEDS ORDERED: Dextrose 50% Syringe 50 ml 25 GM/50 ML SYRINGE IV PUSH PRN (20:05)
[2021-12-10] MEDS: Aspirin EC 81 mg TAB.EC (enteric coated) PO SCH (21:26)
[2021-12-10] MEDS: Heparin 5000 UNITS/ML 1 mL VIAL SUBCUT SCH (21:30)
[2021-12-11] MEDS: Heparin 5000 UNITS/ML 1 mL VIAL SUBCUT SCH (06:11)
[2021-12-11 06:38] LABS: Anion Gap 6 mmol/L (2-11); Blood Urea Nitrogen 17 mg/dL (6-24); CO2 Carbon Dioxide 25 mmol/L (22-32); Calcium 8.6 mg/dL (8.6-10.3); Chloride 108 mmol/L (101-111); Glucose 219 mg/dL (70-100); Magnesium 1.8 mg/dL (1.9-2.7); Potassium 4.1 mmol/L (3.5-5.0); Sodium 139 mmol/L (135-145); eGFR CKD-EPI 60.1 (>60)
[2021-12-11] MEDS ORDERED: Regadenoson 0.4 MG/5 ML SYRINGE ONE (08:00)
[2021-12-11] MEDS ORDERED: Aminophylline 25 MG/ML VIAL ONE (08:01)
[2021-12-11 08:19] LABS: Hematocrit 37 % (35-47); Hemoglobin 11.8 g/dL (12.0-16.0); Mean Corpuscular HGB Conc 32 g/dL (31-36); Mean Corpuscular Hemoglobin 29 pg (27-31); Mean Corpuscular Volume 91 fL (80-97); Red Blood Count 4.02 10^6 /uL (3.70-4.87); Red Cell Distribution Width 15 % (10-15); White Blood Count 2.6 10^3/uL (3.5-10.8)
[2021-12-11 09:06] LABS: ABS Eosinophils 0.1 10^3/ul (0-0.6); ABS Lymphocytes 0.9 10^3/ul (1.0-4.8); ABS Monocytes 0.4 10^3/ul (0-0.8); ABS Neutrophils 1.2 10^3/ul (1.5-7.7); Eosinophil % 3.6 %; Lymphocyte % 35.2 %; Nucleated Red Blood Cells % 0.1; Platelet Count 96 10^3/uL (150-450)
[2021-12-11] MEDS: FLUTICAS/UMECLI/VILANT 100-62.5-25 MDI (NF) INH SCH (09:18)
[2021-12-11] MEDS ORDERED: Al Hydrox/Mg Hydrox/Simet LIQ 30 ML UDC PO ONE (12:24)
[2021-12-11 12:51] LABS: Activated Partial Thrombo Time 35.3 seconds (26.0-38.0); Fibrinogen 287.5 mg/dL (110.8-404.3)
[2021-12-11 12:56] LABS: ALT 11 U/L (7-52); AST 16 U/L (13-39); Albumin 3.5 g/dL (3.2-5.2); Albumin/Globulin Ratio 1.5 (1-3); Alkaline Phosphatase 62 U/L (35-149); Globulin 2.3 g/dL (2-4); LDH 131 U/L (140-271); Total Protein 5.8 g/dL (6.4-8.9)
[2021-12-11] MEDS ORDERED: Cyanocobalamin INJ 1,000 MCG/ML VIAL 1 ML VIAL IM STA (13:03)
[2021-12-11 16:46] LABS: Corrected Retic Count 1.4 % (0.5-1.5); Hematocrit for Retic CNT 36 % (35-47); Immature Retic Fraction 0.43; RBC Retic Count 3.98 10^6/uL (3.70-4.87)
[2021-12-11 19:15] LABS: ABS Eosinophils 0.1 10^3/ul (0-0.6); ABS Monocytes 0.4 10^3/ul (0-0.8); ABS Neutrophils 2.3 10^3/ul (1.5-7.7); Eosinophil % 2.9 %; Hematocrit 37 % (35-47); Hemoglobin 12.2 g/dL (12.0-16.0); Lymphocyte % 25.6 %; Mean Corpuscular HGB Conc 33 g/dL (31-36); Mean Corpuscular Hemoglobin 29 pg (27-31); Mean Corpuscular Volume 89 fL (80-97); Mean Platelet Volume 10.7 fL (7.4-10.4); Nucleated Red Blood Cells % 0.3; Platelet Count 117 10^3/uL (150-450); Red Blood Count 4.18 10^6 /uL (3.70-4.87); Red Cell Distribution Width 14 % (10-15); White Blood Count 3.7 10^3/uL (3.5-10.8)
[2021-12-11] MEDS: Aspirin EC 81 mg TAB.EC (enteric coated) PO SCH (20:31)
[2021-12-12 06:45] LABS: ABS Eosinophils 0.1 10^3/ul (0-0.6); ABS Lymphocytes 0.9 10^3/ul (1.0-4.8); ABS Monocytes 0.4 10^3/ul (0-0.8); ABS Neutrophils 2.6 10^3/ul (1.5-7.7); Eosinophil % 2.9 %; Hematocrit 38 % (35-47); Hemoglobin 12.7 g/dL (12.0-16.0); Lymphocyte % 21.8 %; Mean Corpuscular HGB Conc 33 g/dL (31-36); Mean Corpuscular Hemoglobin 30 pg (27-31); Mean Corpuscular Volume 89 fL (80-97); Mean Platelet Volume 10.9 fL (7.4-10.4); Platelet Count 101 10^3/uL (150-450); Red Cell Distribution Width 14 % (10-15)
[2021-12-12 07:06] LABS: Magnesium 1.8 mg/dL (1.9-2.7); Potassium 3.8 mmol/L (3.5-5.0); eGFR CKD-EPI 68.6 (>60)
[2021-12-12] MEDS: FLUTICAS/UMECLI/VILANT 100-62.5-25 MDI (NF) INH SCH (07:38)
[2021-12-12 07:54] LABS: C Reactive Protein 7.62 mg/L (<8.01)
[2021-12-12 12:20] VITALS: BP 131/65
== END 2021-12-12 15:44 | disposition home or self-care (01) ==
LOC: ED 15:22 → INTOOBSV 20:02 → SUATTDRO 20:02 → EDHOLD 20:02 → MEDTELE 23:12
PROVIDERS: ADMIT Internal Medicine; ATTEND Internal Medicine

== ENCOUNTER 2022-03-09 09:14 | Observation (INO) ==
[~2022-03-09 09:14] MED LIST changes: -Buffered Lidocaine 0.9% SYRIN* 5 ML/SYR SYRINGE INTRADERM ONE; +Buffered Lidocaine 1% SYRIN 1 ml INTRADERM ONE; +Lactated Ringers 1000 ml BAG 1,000 ML IV SCH; -Sodium Citrate/Citric Acid* 15 ML UDC PO ONE
[2022-03-09] MEDS ORDERED: ceFAZolin 2 GM PREMIX 2 GM/50 ML BAG ONE (09:29)
[2022-03-09] MEDS ORDERED: Propofol 10 MG/ML 20 ML BTL ONE (09:34)
[2022-03-09] MEDS ORDERED: Lidocaine 2% PF 5 ML VIAL ONE ×2 (09:35)
[2022-03-09] MEDS ORDERED: Midazolam 2 mg/2 ml VIAL 1 mg/ml 2 ml VIAL (2 mg) ONE (09:35)
[2022-03-09] MEDS ORDERED: Ketamine HCL 50 mg/ml 10 ml VIAL (500 MG) ONE (09:52)
[2022-03-09] MEDS ORDERED: Naloxone 0.4 mg VIAL 0.4 mg/ml 1 ml VIAL IV PRN (10:35)
[2022-03-09] MEDS ORDERED: HYDROmorphone 1 MG/1 ML SYRINGE IV PRN (10:35)
[2022-03-09] MEDS ORDERED: Sodium Chloride 0.9% 10 ML ONE (11:41)
[2022-03-09] MEDS ORDERED: Ondansetron 4 mg VIAL 2 MG/ML 2 ml VIAL ONE (12:15)
[2022-03-09] MEDS ORDERED: Dexamethasone IV 4 MG/ML VIAL 1 ml VIAL ONE (12:15)
[2022-03-09] MEDS ORDERED: Acetaminophen IV 1 GM/100ML 1,000 MG/100 ML BAG IV ONE (12:16)
[2022-03-09] MEDS ORDERED: Ondansetron ODT 4 mg TAB 4 MG TAB PO PRN (12:37)
[2022-03-09] MEDS ORDERED: Morphine 2 MG/ML SYRINGE IV PRN (12:37)
[2022-03-09] MEDS ORDERED: Lactulose 30 ml UDC PO PRN (12:37)
[2022-03-09] MEDS ORDERED: Ondansetron 4 mg VIAL 2 MG/ML 2 ml VIAL IV PRN (12:37)
[2022-03-09] MEDS ORDERED: Magnesium Hydroxide LIQ 30 ML UDC PO PRN (12:37)
[2022-03-09] MEDS ORDERED: Albuterol HFA INHALER 8 gm MDI INH PRN (12:45)
[2022-03-09] MEDS ORDERED: Lactated Ringers 1000 ml BAG 1,000 ML IV SCH (13:00)
[2022-03-09] MEDS ORDERED: Dulaglutide (NF) 0.75 MG/0.5 ML SYRINGE SUBCUT SCH (13:00)
[2022-03-09] MEDS ORDERED: Dextrose 50% Syringe 50 ml 25 GM/50 ML SYRINGE IV PUSH PRN (16:04)
[2022-03-09] MEDS: Magnesium Hydroxide LIQ 30 ML UDC PO SCH (21:15)
[2022-03-09] MEDS: Clindamycin 600 MG/D5W BAG 600 MG/50 ML BAG IV SCH (21:15)
[2022-03-10] MEDS: Clindamycin 600 MG/D5W BAG 600 MG/50 ML BAG IV SCH ×2 (03:37→11:00)
[2022-03-10 06:24] LABS: Hematocrit 31 % (35-47); Hemoglobin 10.2 g/dL (12.0-16.0); Mean Platelet Volume 10.1 fL (7.4-10.4); Platelet Count 181 10^3/uL (150-450)
[2022-03-10 06:37] LABS: Calcium 8.2 mg/dL (8.6-10.3); Potassium 4.4 mmol/L (3.5-5.0); eGFR CKD-EPI 60.1 (>60)
[2022-03-10] MEDS ORDERED: Vitamin THERAPEUTIC TAB PO SCH (09:00)
[2022-03-10] MEDS ORDERED: Isosorbide Mononit ER 60mg TAB PO SCH (09:00)
[2022-03-10] MEDS ORDERED: CMCS:FLUTICAS/UMECLI/VILANT 100-62.5-25 MDI (NF) INH SCH (09:00)
[2022-03-10] MEDS: Magnesium Hydroxide LIQ 30 ML UDC PO SCH (09:11)
[2022-03-10 11:26] VITALS: BP 107/69
== END 2022-03-10 13:10 | disposition home or self-care (01) ==
LOC: OR 09:14 → SSU 09:14 → EDSTATUS 11:00
PROVIDERS: ADMIT Orthopaedic Surgery Adult Reconstructive Orthopaedic Surgery; ATTEND Orthopaedic Surgery Adult Reconstructive Orthopaedic Surgery

== ENCOUNTER 2022-07-14 13:59 | Inpatient (IN) ==
[2022-07-14] MEDS ORDERED: Lactated Ringers 1000 ml BAG 1,000 ML IV ONE (14:06)
[2022-07-14] MEDS ORDERED: Ondansetron 4 mg VIAL 2 MG/ML 2 ml VIAL IV ONE (14:12)
[2022-07-14 14:38] LABS: ABS Basophils 0.1 10^3/ul (0-0.2); ABS Lymphocytes 1.4 10^3/ul (1.0-4.8); ABS Monocytes 1.1 10^3/ul (0-0.8); ABS Neutrophils 6.5 10^3/ul (1.5-7.7); Eosinophil % 0.5 %; Hematocrit 42 % (35-47); Hemoglobin 13.5 g/dL (12.0-16.0); Lymphocyte % 15.8 %; Mean Corpuscular HGB Conc 32 g/dL (31-36); Mean Corpuscular Hemoglobin 27 pg (27-31); Mean Corpuscular Volume 85 fL (80-97); Mean Platelet Volume 10.5 fL (7.4-10.4); Platelet Count 169 10^3/uL (150-450); Red Blood Count 4.94 10^6 /uL (3.70-4.87); Red Cell Distribution Width 17 % (10-15); White Blood Count 9.1 10^3/uL (3.5-10.8)
[2022-07-14 15:26] LABS: Albumin 4.2 g/dL (3.2-5.2); Albumin/Globulin Ratio 2.1 (1-3); Calcium 9.2 mg/dL (8.6-10.3); Magnesium 1.8 mg/dL (1.9-2.7); Potassium 4.4 mmol/L (3.5-5.0); Total Bilirubin 0.5 mg/dL (0.2-1.0); Total Protein 6.2 g/dL (6.4-8.9); eGFR CKD-EPI 57.8 (>60)
[2022-07-14] MEDS ORDERED: Magnesium Sulfate 2 gm BAG 2 GM/50 ML BAG IVPB ONE (15:41)
[2022-07-14 16:00] LABS: High Sensitivity Troponin 1 Hr 3 pg/mL (<15)
[2022-07-14] MEDS ORDERED: Ondansetron 4 mg VIAL 2 MG/ML 2 ml VIAL IV PRN (18:20)
[2022-07-14] MEDS ORDERED: Albuterol HFA INHALER 8 gm MDI INH PRN (19:16)
[2022-07-14] MEDS: Enoxaparin 40 MG/0.4 ML SYR SUBCUT SCH (23:14)
[2022-07-15] MEDS: FLUTICAS/UMECLI/VILANT 100-62.5-25 MDI (NF) INH SCH (09:27)
[2022-07-15 10:10] LABS: Anion Gap 5 mmol/L (2-11); Blood Urea Nitrogen 15 mg/dL (6-24); CO2 Carbon Dioxide 28 mmol/L (22-32); Chloride 103 mmol/L (101-111); Glucose 145 mg/dL (70-100); Potassium 4.2 mmol/L (3.5-5.0); Sodium 136 mmol/L (135-145)
[2022-07-15 10:11] LABS: eGFR CKD-EPI 64.9 (>60)
[2022-07-15 14:50] LABS: Total Iron Binding Capacity 315 mcg/dL (250-450); Transferrin 225 mg/dL (203-362)
[2022-07-15 14:51] LABS: % Iron Saturation 6 % (15-55); Iron < 20 ug/dL (50-212); Unsaturated Iron Binding 295 ug/dL
[2022-07-15 15:11] LABS: Ferritin 64.4 ng/mL (11-307)
[2022-07-15 15:15] LABS: Folate > 20.00 ng/mL (5.90-24.80)
[2022-07-15 15:16] LABS: Vitamin B12 196 pg/mL (180-914)
[2022-07-15] MEDS ORDERED: NS 0.9% 1000 ml BAG 1,000 ML IV ONE (16:35)
[2022-07-15] MEDS ORDERED: Iron Sucrose 200 MG in NS 0.9% 100 ml BAG 100 ML IVPB SCH (18:00)
[2022-07-15 20:08] LABS: Urine Appearance Clear; Urine Bilirubin Negative (Negative); Urine Blood Negative (Negative); Urine Color Yellow; Urine Glucose Trace (100mg/dL) (Negative); Urine Ketones Negative (Negative); Urine Nitrite Negative (Negative); Urine Protein Negative (Negative); Urine Specific Gravity 1.015 (1.005-1.030); Urine Urobilinogen 0.2 (Negative) (Negative); Urine pH 6.5 (5.0-9.0)
[2022-07-15] MEDS: Enoxaparin 40 MG/0.4 ML SYR SUBCUT SCH (21:08)
[2022-07-16 07:22] LABS: Hematocrit 36 % (35-47); Hemoglobin 12.2 g/dL (12.0-16.0); Mean Corpuscular HGB Conc 34 g/dL (31-36); Mean Corpuscular Hemoglobin 28 pg (27-31); Mean Corpuscular Volume 83 fL (80-97); Red Blood Count 4.37 10^6 /uL (3.70-4.87); Red Cell Distribution Width 16 % (10-15); White Blood Count 2.5 10^3/uL (3.5-10.8)
[2022-07-16] MEDS: FLUTICAS/UMECLI/VILANT 100-62.5-25 MDI (NF) INH SCH (07:29)
[2022-07-16 07:34] LABS: Calcium 8.1 mg/dL (8.6-10.3); Magnesium 1.8 mg/dL (1.9-2.7); eGFR CKD-EPI 69.9 (>60)
[2022-07-16 08:17] LABS: ABS Eosinophils 0.1 10^3/ul (0-0.6); ABS Monocytes 0.4 10^3/ul (0-0.8); Eosinophil % 3.2 %; Lymphocyte % 39.4 %; Mean Platelet Volume 10.5 fL (7.4-10.4); Nucleated Red Blood Cells % 0.3; Platelet Count 95 10^3/uL (150-450)
[2022-07-16] MEDS: Enoxaparin 40 MG/0.4 ML SYR SUBCUT SCH (18:29)
[2022-07-16 20:03] LABS: Urine Osmo 315 mOsm/kg (150-1150)
[2022-07-17 06:28] LABS: ABS Eosinophils 0.1 10^3/ul (0-0.6); ABS Lymphocytes 1.2 10^3/ul (1.0-4.8); ABS Monocytes 0.3 10^3/ul (0-0.8); Eosinophil % 5.6 %; Hematocrit 39 % (35-47); Hemoglobin 13.1 g/dL (12.0-16.0); Lymphocyte % 43.6 %; Mean Corpuscular HGB Conc 33 g/dL (31-36); Mean Corpuscular Hemoglobin 28 pg (27-31); Mean Corpuscular Volume 84 fL (80-97); Mean Platelet Volume 9.8 fL (7.4-10.4); Nucleated Red Blood Cells % 0.2; Platelet Count 110 10^3/uL (150-450); Red Blood Count 4.72 10^6 /uL (3.70-4.87); Red Cell Distribution Width 16 % (10-15); White Blood Count 2.6 10^3/uL (3.5-10.8)
[2022-07-17 06:39] LABS: Calcium 8.8 mg/dL (8.6-10.3); Magnesium 1.7 mg/dL (1.9-2.7); Potassium 4.1 mmol/L (3.5-5.0)
[2022-07-17 06:45] LABS: eGFR CKD-EPI 85.1 (>60)
[2022-07-17] MEDS ORDERED: Magnesium Sulfate 2 gm BAG 2 GM/50 ML BAG IVPB ONE (07:42)
[2022-07-17] MEDS: FLUTICAS/UMECLI/VILANT 100-62.5-25 MDI (NF) INH SCH (07:44)
[2022-07-17 11:30] VITALS: BP 128/67
== END 2022-07-17 16:10 | disposition home or self-care (01) | DRG 179 ==
LOC: EDHOLD 13:59 → ED 13:59 → SUATTDRO 16:27 → MEDTELE 07-15 15:00
PROVIDERS: ADMIT Hospitalist; ATTEND Internal Medicine